=== PATIENT | female | born 1950 | race Caucasian/White ===

== ENCOUNTER 2021-01-07 18:13 | Outpatient (REF) | payer OTHER, SELFPAY | END 2021-01-07 18:14 | disposition home or self-care (01) | LOC: NCHCN 18:13 | PROVIDERS: Visit Provider Physician Assistant | DX: R35.0 Frequency of micturition (principal); R39.89 Other symptoms and signs involving the genitourinary system | CPT/HCPCS: 87086; 87480; 87510; 87660 ==

== ENCOUNTER 2021-02-20 02:10 | Outpatient (CLI) | payer OTHER, SELFPAY ==
--- NOTE | 2021-02-20 | DI.US_ITS ---
Exam(s) US SOFT TISSUE HEAD OR NECK EXAM: US SOFT TISSUE HEAD OR NECK CLINICAL HISTORY: MASS POSTERIOR RT NECK, R22.1. TECHNIQUE: Ultrasound was performed using standard protocol. COMPARISON: No exams were available for comparison FINDINGS: Sonographic assessment utilizing grayscale and color Doppler imaging was performed and targeted to th e area of clinical concern. This is right-side of the neck. Appears to be few slightly prominent lymph nodes right side of the neck. Largest of these measures 1 .4 x 0.5 x 1.0 cm. No fluid collection IMPRESSION: As above. Clinically indicated follow-up contrast infused CT scan of the soft tissues of the neck ca n be performed DATA REPOSITORY:
== END 2021-02-20 02:30 ==
PROVIDERS: Visit Provider Nurse Practitioner Family
DX: R59.0 Localized enlarged lymph nodes
CPT/HCPCS: 76536

== ENCOUNTER 2021-03-18 08:47 | Outpatient (CLI) | payer MEDICARE, SELFPAY ==
--- NOTE | 2021-03-18 | DI.US_ITS ---
Exam(s) US PELVIS TRANSVAGINAL EXAM: US PELVIS TRANSVAGINAL CLINICAL HISTORY: F/U RT OVARIAN CYST,N83.209 TECHNIQUE: Ultrasound of the pelvis was performed both transabdominal and transvaginal. COMPARISON: No exams were available for comparison . examination performed 03/18/2021 submitted for interpretation on today's date which is 04/23/2021. Apparently for waiting the prior outside images but these are parent not able to be acquired. FINDINGS: UTERUS: Nongravid and anteverted Measures 5 cm length x 1.8 cm AP x 2.6 cm wide. There is a small calcified uterine fibroid at the posterior fundus level measuring approximately 9 x 5 x 10 millimeters. Endometrial thickness measures 1-2 millimeters mm. There is no fluid in the endometrial canal. CERVIX: There are no obvious nabothian cysts. RIGHT OVARY: Measures 1.5 x 1.2 x 1.3 cm Contains a 9 x 10 x 9 millimeter finding which is possibly hemorrhagic cyst or other pathology. Some what difficult to adequately visualized LEFT OVARY: Not visualized CUL-DE-SAC: No free fluid evident. IMPRESSION: 1. Less than optimal examination 2. Left ovary is not visualized. Right ovary appears to contain a 9 x 10 millimeter probable hemorrh agic cyst. This should be reassessed in few months time to ensure stability. There is no free fluid . 3. Solitary 9 x 10 millimeter calcified posterior myometrial fibroid at the level the fundus. Endome trium is difficult to visualize but is thin, measuring approximately 1-2 millimeters. There is no fl uid in the endometrial canal. DATA REPOSITORY:
== END 2021-03-18 09:07 ==
PROVIDERS: Visit Provider Nurse Practitioner Family
DX: N83.201 Unspecified ovarian cyst, right side (principal)
CPT/HCPCS: 76830; 76856

== ENCOUNTER 2021-04-29 09:41 | Outpatient (REF) | payer OTHER, SELFPAY ==
[2021-04-29 20:45] LABS: ALT 34 U/L (14-59); AST 39 U/L (15-37); Albumin 3.9 g/dL (3.4-5.0); Alkaline Phosphatase 88 U/L (46-116); BUN 27 mg/dL (7-18); Bilirubin, Total 0.7 mg/dL (0.2-1.0); CREATININE 0.9 mg/dL (0.55-1.02); Calcium 9.4 mg/dL (8.5-10.1); Calculated LDL 114 mg/dL (<100); Chloride 102 mmol/L (98-107); Cholesterol 199 mg/dL (<200); Glucose 191 mg/dL (74-106); HDL Cholesterol 66 mg/dL (40-60); Potassium 4.7 mmol/L (3.5-5.1); Sodium 138 mmol/L (136-145); Total Protein 7.8 g/dL (6.4-8.2); Triglyceride 97 mg/dL (<150)
== END 2021-04-29 09:42 | disposition home or self-care (01) ==
LOC: NCHCN 09:41
PROVIDERS: Visit Provider Nurse Practitioner Family
DX: E78.5 Hyperlipidemia, unspecified (principal); I25.10 Atherosclerotic heart disease of native coronary artery without angina pectoris
CPT/HCPCS: 80053; 80061

== ENCOUNTER 2021-05-14 01:26 | Outpatient (CLI) | payer MEDICARE, SELFPAY ==
--- NOTE | 2021-05-14 08:30 | DI.CT_ITS ---
Exam(s) CT NECK W EXAM: CT NECK W CLINICAL HISTORY: MASS OF NECK, R22.1. TECHNIQUE: Imaging Protocol: Axial CT angiography was performed with multi-slice acquisition and mu lti-planar and/or 3D reconstructions. CONTRAST MATERIAL: Intravenous: Omnipaque 350 Contrast volume:structured data in ml COMPARISON: No exams were available for comparison FINDINGS: Visualized paranasal sinuses: There is retention cyst in the posterior aspect of the right maxillary sinus measuring 12 x 10 millimeters. Smaller similar findings seen in the lateral aspect the left ma xillary sinus. There are no associated fluid levels within the sinuses. Visualized sphenoid sinuses are clear. Nasopharynx: Tissues symmetrical. No mass evident. Oropharynx: Uvula is midline. No obvious abnormal asymmetries. Hypopharynx: Valleculae and epiglottis appear unremarkable as do the aryepiglottic folds. Prevertebral tissues: Not swollen Vocal cords: Unremarkable. Subglottic airway also appears unremarkable. Thyroid gland: Unremarkable. Salivary glands: Both parotid glands appear unremarkable. No abnormalities evident in the submandibu lar glands. Also no calculi. Vascular: Internal jugular veins are patent bilaterally. Significant calcified plaque at the level b oth carotid bifurcations and proximal internal carotid arteries. Recommend Doppler imaging. Lymph nodes: There is no lymphadenopathy evident in the neck and supraclavicular regions. Osseous: No significant osseous lesions. Facet arthropathy in the cervical spine noted. Degenerativ e disc disease lower cervical spine. Visualized lung apices: No infiltrates nor masses evident. IMPRESSION: 1. There is no evidence of mass or lymphadenopathy in the neck. 2. However, incidentally noted is heavily calcified plaque at the level of both carotid bifurcations and proximal internal carotid arteries. Recommend follow-up Doppler imaging of the carotid arteries in the neck to determine the amount of stenosis. 12 x 10 millimeter retention cyst in the right maxillary sinus and similar but smaller solitary findi ng in the left maxillary sinus. No associated fluid levels therein. RADIATION DOSE DELIVERED: 439.55mGy.cm Total DLP DATA REPOSITORY: All CT scans at this facility are submitted to the National Radiology Data Registry (NRDR) Dose Index Registry (DIR) with the [employer] ([employer]). RADIATION OPTIMIZATION: All CT scans at this facility use at least one of these dose optimization te chniques: automated exposure control; mA and/or kV adjustment per patient size (includes targeted exa ms where dose is matched to clinical indication); or iterative reconstruction.
[2021-05-14] MEDS: Omnipaque 350 MG/ML 100 ML BTL IJ (08:58)
== END 2021-05-14 01:46 ==
PROVIDERS: Visit Provider Nurse Practitioner Family
DX: R22.1 Localized swelling, mass and lump, neck (principal); I77.1 Stricture of artery
CPT/HCPCS: 70491; J3490

== ENCOUNTER 2021-05-26 08:28 | Outpatient (CLI) | payer MEDICARE, SELFPAY ==
--- NOTE | 2021-05-26 08:15 | RT.EKG_ITS ---
APPROVED REPORT Exam: Resting ECG Reason for Exam: CAD Patient Location: O HR:76 bpm ECG Measurements Heart Rate 76 AXIS FL 209 P 44 QRSd 94 QRS 26 QT 391 T 55 QTc 440 Conclusion Sinus rhythm...normal P axis, V-rate 50- 99 Normal Electrocardiogram
== END 2021-05-26 08:29 | disposition home or self-care (01) ==
LOC: DI.CARD 08:29
PROVIDERS: Visit Provider Internal Medicine Cardiovascular Disease
DX: I25.10 Atherosclerotic heart disease of native coronary artery without angina pectoris (principal)
CPT/HCPCS: 93010

== ENCOUNTER → 2021-05-26 13:02 | Outpatient (BNVA) | payer MEDICARE, SELFPAY | PROVIDERS: PCP Nurse Practitioner Family; Referring Provider Nurse Practitioner Family; Visit Provider Internal Medicine Cardiovascular Disease | DX: I25.10 Atherosclerotic heart disease of native coronary artery without angina pectoris (principal); E78.5 Hyperlipidemia, unspecified; I10 Essential (primary) hypertension; Z95.818 Presence of other cardiac implants and grafts | CPT/HCPCS: 93005; 99203 ==

== ENCOUNTER 2021-06-16 00:35 | Outpatient (CLI) | payer MEDICARE, SELFPAY ==
--- NOTE | 2021-06-16 | DI.US_ITS ---
Exam(s) US CAROTID EXAM: US CAROTID CLINICAL HISTORY: CAROTID STENOSIS, I65.29, CAROTID ARTERIAL DISEASE, I77.9, F/U CT. TECHNIQUE: Ultrasound carotids performed using grayscale, color-flow, and spectral Doppler imaging. COMPARISON: US US PELVIS TRANSVAGINAL from 03/18/2021 FINDINGS: RIGHT CAROTID ARTERY: Plaque: There is some plaque evident at the carotid bulb and proximal ICA. However, there are no manisha vated velocities at nor distal to this level in the internal carotid arteries. This implies that snehal unt of stenosis is less than 50 percent. LEFT CAROTID ARTERY: Plaque: Some carotid arterial plaque also noted at this level on the right side. However, there also no significantly elevated velocities in the left internal carotid artery in the neck, implying that the amount of stenosis is less than 50 percent. VERTEBRAL ARTERIES: Antegrade flow is demonstrated in both vertebral arteries. Measurements: R Bulb: 81cm/s PS / 11.6cm/s ED R CCA: 71.3cm/s PS / 12.2cm/s ED R ECA: 136cm/s PS / 18.5cm/s ED R ICA Prox: 69.4cm/s PS /17.6cm/s ED R ICA Mid: 84.2cm/s PS / 24.1cm/s ED R ICA Distal: 84.2cm/s PS /17.6cm/s ED R Vert: 58.5cm/s PS / 9cm/s ED R SVR: 1.18 R DVR: 1.98 L Bulb: 95.1cm/s PS /12.9cm/s ED L CCA: 73.9cm/s PS / 20.6cm/s ED L ECA: 149.9cm/s PS /5.6cm/s ED L ICA Prox:72.2cm/s PS / 14.8cm/s ED L ICA Mid: 76.8cm/sPS / 16.7cm/s ED L ICA Distal: 104.6cm/s PS / 31.5cm/s ED L Vert: 54.6cm/s PS / 14.8cm/s ED L SVR: 1.42 L DVR: 1.53 IMPRESSION: There is plaque bilaterally at the carotid bulbs and proximal ICAs. However, there are no significan t elevated velocities, this implying that the amount of stenosis is less than 50 percent bilaterally. Antegrade flow was demonstrated in both vertebral arteries. Criteria for Carotid Stenosis: Normal: ICA PSV <125 cm/s no plaque or intimal thickening is visible. <50% stenosis: ICA PSV <125 cm/s and plaque or intimal thickening is visible. 50-69% stenosis: ICA PSV is 125-250 cm/s and plaque is visible. >70% stenosis to near occlusion: ICA PSV >250 cm/s with visible plaque and luminal narrowing. DATA REPOSITORY:
--- NOTE | 2021-06-16 08:55 | DI.MAMMO_ITS ---
Exam(s) MAMMO SCREENING EXAM: MAMMO SCREENING CLINICAL HISTORY: SCREENING, Z12.39 TECHNIQUE: Bilateral full field digital CC and MLO mammographic images were obtained with 3D tomosyn thesis and utilizing computer aided detection (CAD). COMPARISON: Available for comparison. FINDINGS: Masses/Architectural Distortion: None seen. Stable asymmetric tissue is seen in the upper central lef t breast. Microcalcifications: No suspicious pleomorphic-type are seen. Skin Thickening/Nipple Retraction: None. IMPRESSION: 1. No significant interval change with no specific features of malignancy noted. 2. Unless there is more urgent need, screening mammography is recommended, as per [employer] guidelines. BI-RADS Category 2 - Benign Findings Breast Density - Category B - Scattered areas of fibroglandular density Breast density category C or D implies that the patient has dense breast tissue. Dense breast tissue is very common and is not abnormal but dense breast tissue can make it harder to find cancer on a ma mmogram. Also, dense breast tissue may increase their breast cancer risk. This information about the result of the mammogram report was provided to the patient to raise their awareness. Use this report when you speak with the patient about their risks for breast cancer, which includes their family hist ory. At that time, you may recommend for more screening tests (Ultrasound or MRI) as they might be us eful based on their risk. A negative radiographic report should not delay biopsy if a dominant or clinically suspicious mass is present. Up to ten percent of cancers are not identified on mammography. A negative report may reinforce clinical impression. Adenosis and dense breasts may obscure an underlying neoplasm. False positive reports average 6 to 10%. Patient will receive a letter notifying them of these results.
== END 2021-06-16 00:55 ==
PROVIDERS: PCP Nurse Practitioner Family; Visit Provider Nurse Practitioner Family
DX: I65.23 Occlusion and stenosis of bilateral carotid arteries (principal); I77.89 Other specified disorders of arteries and arterioles; Z12.31 Encounter for screening mammogram for malignant neoplasm of breast
CPT/HCPCS: 77063; 77067; 93880

== ENCOUNTER 2021-07-28 01:47 | Outpatient (CLI) | payer MEDICARE, SELFPAY ==
--- NOTE | 2021-07-28 08:00 | DI.US_ITS ---
Exam(s) US PELVIS TRANSVAGINAL EXAM: US PELVIS TRANSVAGINAL CLINICAL HISTORY: UNSPECIFIED OVARIAN CYST, N83.209, F/U RT OVARIAN CYST TECHNIQUE: Transabdominal and transvaginal imaging was performed using standard protocol. COMPARISON: US US PELVIS TRANSVAGINAL from 03/18/2021 FINDINGS: KIDNEYS: Kidneys are symmetric in size. No evidence of renal calculi. No evidence of hydronephrosis. No renal mass or cyst identified. Uterus and ovaries are much better visualized on today's examination compared with the prior.. UTERUS: Anteverted. 5.1 x 2.4 x 3.6 cm. Endometrium: 2 millimeters. Myometrium: 3 small calcified fibroids near the fundus, largest measuring 1.3 cm. Cervix: Unremarkable. OVARIES: Right: Cyst or mass: 1.6 x 1.1 x 1.6 cm. 1.3 x 0.9 x 1.2 centimeter cyst. No suspicious features. Left: Cyst or mass: None. 1.2 x 0.9 x 0.8 cm DOPPLER: Color: Symmetric and uniform flow to both ovaries. No hyperemia. Duplex: Normal ovarian arterial waveforms visualized. CUL-DE-SAC: Free fluid: Small amount of free fluid. IMPRESSION: 1. Normal-appearing uterus with endometrial stripe within normal limits. 2. 1.3 centimeter maximal dimension simple cyst right ovary. Unremarkable left ovary. DATA REPOSITORY:
== END 2021-07-28 02:07 ==
PROVIDERS: PCP Nurse Practitioner Family; Visit Provider Nurse Practitioner Family
DX: N83.291 Other ovarian cyst, right side (principal); D25.9 Leiomyoma of uterus, unspecified
CPT/HCPCS: 76830; 76856

== ENCOUNTER 2021-08-28 10:09 | Outpatient (REF) | payer MEDICARE, SELFPAY | END 2021-08-28 10:10 | disposition home or self-care (01) | LOC: LBN 10:09 | PROVIDERS: PCP Nurse Practitioner Family; Visit Provider Internal Medicine Gastroenterology ==

== ENCOUNTER 2021-08-28 18:31 | Outpatient (REF) | payer MEDICARE, SELFPAY ==
[2021-08-28 19:35] LABS: ALT 42 U/L (14-59); AST 37 U/L (15-37); Albumin 3.9 g/dL (3.4-5.0); Alkaline Phosphatase 97 U/L (46-116); Bilirubin, Direct 0.4 mg/dL (0.0-0.2); Bilirubin, Total 0.9 mg/dL (0.2-1.0); Total Protein 7.8 g/dL (6.4-8.2)
[2021-08-28 20:03] LABS: COMMENT (LAB VIEW ONLY) 10.51 mg/dL; Microalb ug/mg Crea 22.8 ug/mg Cr
== END 2021-08-28 18:32 | disposition home or self-care (01) ==
LOC: NCHCN 18:31
PROVIDERS: PCP Nurse Practitioner Family; Visit Provider Nurse Practitioner Family
DX: K74.3 Primary biliary cirrhosis (principal)
CPT/HCPCS: 80076; 82043; 82570

== ENCOUNTER 2021-09-25 18:39 | Outpatient (REF) | payer MEDICARE, SELFPAY ==
[2021-09-25 19:21] LABS: ALT 37 U/L (14-59); AST 37 U/L (15-37); Albumin 3.7 g/dL (3.4-5.0); Alkaline Phosphatase 85 U/L (46-116); Bilirubin, Direct 0.4 mg/dL (0.0-0.2); Bilirubin, Total 0.8 mg/dL (0.2-1.0); Total Protein 7.5 g/dL (6.4-8.2)
== END 2021-09-25 18:40 | disposition home or self-care (01) ==
LOC: NCHCN 18:39
PROVIDERS: PCP Nurse Practitioner Family; Visit Provider Nurse Practitioner Family
DX: K74.3 Primary biliary cirrhosis (principal)
CPT/HCPCS: 80076

== ENCOUNTER 2021-10-23 11:05 | Outpatient (REF) | payer MEDICARE, SELFPAY ==
[2021-10-23 19:16] LABS: ALT 32 U/L (14-59); AST 34 U/L (15-37); Albumin 3.6 g/dL (3.4-5.0); Alkaline Phosphatase 71 U/L (46-116); Bilirubin, Direct 0.4 mg/dL (0.0-0.2); Bilirubin, Total 0.8 mg/dL (0.2-1.0); Total Protein 7.4 g/dL (6.4-8.2)
== END 2021-10-23 11:06 | disposition home or self-care (01) ==
LOC: NCHCN 11:05
PROVIDERS: PCP Nurse Practitioner Family; Visit Provider Nurse Practitioner Family
DX: K74.3 Primary biliary cirrhosis (principal)
CPT/HCPCS: 80076

== ENCOUNTER 2021-11-20 09:59 | Outpatient (REF) | payer MEDICARE, SELFPAY ==
[2021-11-20 19:14] LABS: ALT 37 U/L (14-59); AST 30 U/L (15-37); Albumin 3.8 g/dL (3.4-5.0); Alkaline Phosphatase 68 U/L (46-116); Bilirubin, Direct 0.4 mg/dL (0.0-0.2); Bilirubin, Total 1.1 mg/dL (0.2-1.0); Total Protein 7.7 g/dL (6.4-8.2)
[2021-11-20 19:18] LABS: Hemoglobin A1C 7.9 % (<5.7)
== END 2021-11-20 10:00 | disposition home or self-care (01) ==
LOC: NCHCN 09:59
PROVIDERS: PCP Nurse Practitioner Family; Visit Provider Nurse Practitioner Family
DX: E11.69 Type 2 diabetes mellitus with other specified complication (principal); K74.3 Primary biliary cirrhosis
CPT/HCPCS: 80076; 83036

== ENCOUNTER 2021-11-20 10:04 | Outpatient (REF) | payer MEDICARE, SELFPAY | END 2021-11-20 10:05 | disposition home or self-care (01) | LOC: LBN 10:04 | PROVIDERS: PCP Nurse Practitioner Family; Visit Provider Internal Medicine Gastroenterology ==

== ENCOUNTER 2021-12-24 15:35 | Outpatient (REF) | payer MEDICARE, SELFPAY ==
[2021-12-24 22:38] LABS: ALT 31 U/L (14-59); AST 30 U/L (15-37); Albumin 3.6 g/dL (3.4-5.0); Alkaline Phosphatase 64 U/L (46-116); Bilirubin, Direct 0.2 mg/dL (0.0-0.2); Bilirubin, Total 0.6 mg/dL (0.2-1.0); Total Protein 7.8 g/dL (6.4-8.2)
== END 2021-12-24 15:36 | disposition home or self-care (01) ==
LOC: NCHCN 15:35
PROVIDERS: PCP Nurse Practitioner Family; Visit Provider Nurse Practitioner Family
DX: K74.3 Primary biliary cirrhosis (principal)
CPT/HCPCS: 80076

== ENCOUNTER → 2022-06-12 08:41 | Outpatient (BNVA) | payer MEDICARE, SELFPAY | PROVIDERS: PCP Nurse Practitioner Family; Referring Provider Nurse Practitioner Family; Visit Provider Internal Medicine Cardiovascular Disease | DX: I25.10 Atherosclerotic heart disease of native coronary artery without angina pectoris (principal); I10 Essential (primary) hypertension | CPT/HCPCS: 99213 ==

== ENCOUNTER 2022-07-22 13:01 | Outpatient (CLI) | payer MEDICARE, SELFPAY ==
[2022-07-22 09:32] LABS: Abs Immature Grans 0.01 10^3/uL (0.0-0.06); Absolute Basophil Count 0.03 10^3/uL (0.0-0.2); Absolute Eosinophil Count 0.08 10^3/uL (0.0-0.7); Absolute Lymphocyte Count 1.23 10^3/uL (1.2-3.4); Absolute Monocyte Count 0.41 10^3/uL (0.1-0.8); Absolute Neutrophil Count 2.18 10^3/uL (1.2-6.7); Basophils % 0.8; HCT 50.1 % (36.0-46.0); HGB 16.9 g/dL (11.2-15.7); Immature Grans % 0.3; Lymphocytes % 31.2; MCHC 33.7 % (32.0-36.0); MCV 92 fL (80-95); MPV 10.5 fL (8.0-11.0); Monocytes % 10.4; Neutrophils % 55.3; Platelet Count 151 10^3/uL (130-400); RBC 5.45 10^6/uL (3.93-5.22); RDW 13.3 % (11.7-14.6); RDW-SD 44.8 fL; WBC 3.94 10^3/uL (4.4-10.8)
[2022-07-22 10:38] LABS: ALT 29 U/L (14-59); AST 28 U/L (15-37); Albumin 3.9 g/dL (3.4-5.0); Alkaline Phosphatase 90 U/L (46-116); Anion Gap 7.3 mmol/L (3-11); BUN 33 mg/dL (7-18); Bilirubin, Total 0.7 mg/dL (0.2-1.0); CO2 27.7 mmol/L (21.0-32.0); CREATININE 1.2 mg/dL (0.55-1.02); Chloride 104 mmol/L (98-107); Glucose 157 mg/dL (74-106); Sodium 139 mmol/L (136-145); Total Protein 8.3 g/dL (6.4-8.2)
== END 2022-07-22 13:02 | disposition home or self-care (01) ==
LOC: LBO 13:01
PROVIDERS: PCP Nurse Practitioner Family; Visit Provider Internal Medicine Gastroenterology
DX: K75.4 Autoimmune hepatitis (principal); K74.3 Primary biliary cirrhosis; K74.60 Unspecified cirrhosis of liver
CPT/HCPCS: 36415; 80053; 85025

== ENCOUNTER 2022-09-01 13:19 | Outpatient (REF) | payer MEDICARE, SELFPAY ==
[2022-09-01 19:05] LABS: Anion Gap 8.1 mmol/L (3-11); BUN 30 mg/dL (7-18); CO2 25.9 mmol/L (21.0-32.0); CREATININE 1.1 mg/dL (0.55-1.02); Calcium 10.5 mg/dL (8.5-10.1); Chloride 106 mmol/L (98-107); Estimated GFR 54.39 (mL/min/1.73m2); Glucose 122 mg/dL (74-106); Potassium 4.3 mmol/L (3.5-5.1); Sodium 140 mmol/L (136-145)
[2022-09-01 19:18] LABS: COMMENT (LAB VIEW ONLY) 13.79 mg/dL; Microalb ug/mg Crea 10.9 ug/mg Cr
== END 2022-09-01 13:20 | disposition home or self-care (01) ==
LOC: NCHCN 13:19
PROVIDERS: PCP Nurse Practitioner Family; Visit Provider Nurse Practitioner Family
DX: E11.9 Type 2 diabetes mellitus without complications (principal)
CPT/HCPCS: 80048; 82043; 82570

== ENCOUNTER 2022-10-05 13:08 | Outpatient (REF) | payer MEDICARE, SELFPAY ==
[2022-10-05 19:36] LABS: Anion Gap 3.7 mmol/L (3-11); BUN 27 mg/dL (7-18); CO2 27.3 mmol/L (21.0-32.0); Calcium 9.5 mg/dL (8.5-10.1); Chloride 104 mmol/L (98-107); Estimated GFR 60.98 (mL/min/1.73m2); Glucose 187 mg/dL (74-106); Potassium 4.4 mmol/L (3.5-5.1); Sodium 135 mmol/L (136-145)
== END 2022-10-05 13:09 | disposition home or self-care (01) ==
LOC: NCHCN 13:08
PROVIDERS: PCP Nurse Practitioner Family; Visit Provider Nurse Practitioner Family
DX: N18.31 Chronic kidney disease, stage 3a (principal)
CPT/HCPCS: 80048

== ENCOUNTER 2022-10-30 01:31 | Outpatient (CLI) | payer MEDICARE, SELFPAY ==
[2022-10-30 16:27] LABS: ALT 31 U/L (14-59); AST 32 U/L (15-37); Albumin 3.8 g/dL (3.4-5.0); Alkaline Phosphatase 86 U/L (46-116); Bilirubin, Direct 0.3 mg/dL (0.0-0.2); Bilirubin, Total 1.1 mg/dL (0.2-1.0)
== END 2022-10-30 01:32 | disposition home or self-care (01) ==
LOC: LBO 01:31
PROVIDERS: PCP Nurse Practitioner Family; Visit Provider Internal Medicine Gastroenterology
DX: K74.3 Primary biliary cirrhosis (principal)
CPT/HCPCS: 36415; 80076

== ENCOUNTER 2022-11-27 01:34 | Outpatient (CLI) | payer MEDICARE, SELFPAY ==
[2022-11-27 09:17] LABS: Absolute Basophil Count 0.03 10^3/uL (0.0-0.2); Absolute Eosinophil Count 0.06 10^3/uL (0.0-0.7); Absolute Lymphocyte Count 0.86 10^3/uL (1.2-3.4); Absolute Neutrophil Count 1.76 10^3/uL (1.2-6.7); Eosinophils % 1.9; HCT 47.8 % (36.0-46.0); HGB 16.1 g/dL (11.2-15.7); Lymphocytes % 27.7; MCH 31.3 pg (27.0-33.0); MCHC 33.7 % (32.0-36.0); MCV 93 fL (80-95); MPV 10.2 fL (8.0-11.0); Monocytes % 12.9; Neutrophils % 56.5; Platelet Count 132 10^3/uL (130-400); RBC 5.14 10^6/uL (3.93-5.22); RDW 13.3 % (11.7-14.6); RDW-SD 45.5 fL; WBC 3.11 10^3/uL (4.4-10.8)
[2022-11-27 10:02] LABS: ALT 28 U/L (14-59); AST 27 U/L (15-37); Albumin 3.6 g/dL (3.4-5.0); Alkaline Phosphatase 93 U/L (46-116); Anion Gap 7.1 mmol/L (3-11); BUN 30 mg/dL (7-18); Bilirubin, Direct 0.3 mg/dL (0.0-0.2); Bilirubin, Total 0.8 mg/dL (0.2-1.0); CO2 28.9 mmol/L (21.0-32.0); CREATININE 1.1 mg/dL (0.55-1.02); Calcium 9.7 mg/dL (8.5-10.1); Chloride 104 mmol/L (98-107); Estimated GFR 54.39 (mL/min/1.73m2); Glucose 172 mg/dL (74-106); Potassium 4.5 mmol/L (3.5-5.1); Sodium 140 mmol/L (136-145); Total Protein 7.7 g/dL (6.4-8.2)
== END 2022-11-27 01:35 | disposition home or self-care (01) ==
LOC: LBO 01:35
PROVIDERS: PCP Nurse Practitioner Family; Visit Provider Internal Medicine Gastroenterology
DX: K75.4 Autoimmune hepatitis (principal); K74.3 Primary biliary cirrhosis; K74.69 Other cirrhosis of liver
CPT/HCPCS: 36415; 80053; 80076; 85025

== ENCOUNTER 2022-12-25 01:00 | Outpatient (CLI) | payer MEDICARE, SELFPAY ==
[2022-12-25 09:14] LABS: Absolute Basophil Count 0.03 10^3/uL (0.0-0.2); Absolute Eosinophil Count 0.08 10^3/uL (0.0-0.7); Absolute Lymphocyte Count 0.86 10^3/uL (1.2-3.4); Absolute Monocyte Count 0.39 10^3/uL (0.1-0.8); Basophils % 0.9; Eosinophils % 2.5; HCT 47.1 % (36.0-46.0); HGB 15.6 g/dL (11.2-15.7); Lymphocytes % 26.4; MCH 31.6 pg (27.0-33.0); MCHC 33.1 % (32.0-36.0); MCV 96 fL (80-95); MPV 11.1 fL (8.0-11.0); Neutrophils % 58.2; Platelet Count 103 10^3/uL (130-400); RBC 4.93 10^6/uL (3.93-5.22); RDW 13.4 % (11.7-14.6); RDW-SD 47.7 fL; WBC 3.26 10^3/uL (4.4-10.8)
[2022-12-25 09:26] LABS: ALT 28 U/L (14-59); AST 29 U/L (15-37); Albumin 3.4 g/dL (3.4-5.0); Alkaline Phosphatase 77 U/L (46-116); BUN 32 mg/dL (7-18); Bilirubin, Direct 0.3 mg/dL (0.0-0.2); Bilirubin, Total 0.6 mg/dL (0.2-1.0); Calcium 9.5 mg/dL (8.5-10.1); Chloride 104 mmol/L (98-107); Estimated GFR 60.61 (mL/min/1.73m2); Glucose 169 mg/dL (74-106); Potassium 4.8 mmol/L (3.5-5.1); Sodium 138 mmol/L (136-145); Total Protein 7.5 g/dL (6.4-8.2)
== END 2022-12-25 01:01 | disposition home or self-care (01) ==
LOC: LBO 01:00
PROVIDERS: PCP Nurse Practitioner Family; Visit Provider Internal Medicine Gastroenterology
DX: K74.3 Primary biliary cirrhosis; K75.4 Autoimmune hepatitis
CPT/HCPCS: 36415; 80053; 80076; 85025

== ENCOUNTER 2023-01-26 02:44 | Outpatient (CLI) | payer MEDICARE, SELFPAY ==
[2023-01-26 09:07] LABS: Abs Immature Grans 0.01 10^3/uL (0.0-0.06); Absolute Basophil Count 0.02 10^3/uL (0.0-0.2); Absolute Eosinophil Count 0.04 10^3/uL (0.0-0.7); Absolute Lymphocyte Count 0.98 10^3/uL (1.2-3.4); Absolute Monocyte Count 0.38 10^3/uL (0.1-0.8); Absolute Neutrophil Count 1.94 10^3/uL (1.2-6.7); Basophils % 0.6; Eosinophils % 1.2; HCT 48.1 % (36.0-46.0); HGB 16.2 g/dL (11.2-15.7); Immature Grans % 0.3; Lymphocytes % 29.1; MCH 31.5 pg (27.0-33.0); MCHC 33.7 % (32.0-36.0); MCV 93 fL (80-95); MPV 10.4 fL (8.0-11.0); Monocytes % 11.3; Neutrophils % 57.5; Platelet Count 129 10^3/uL (130-400); RBC 5.15 10^6/uL (3.93-5.22); RDW 13.1 % (11.7-14.6); RDW-SD 45.1 fL; WBC 3.37 10^3/uL (4.4-10.8)
[2023-01-26 09:32] LABS: ALT 29 U/L (14-59); AST 28 U/L (15-37); Albumin 3.8 g/dL (3.4-5.0); Alkaline Phosphatase 76 U/L (46-116); Anion Gap 9.9 mmol/L (3-11); BUN 22 mg/dL (7-18); Bilirubin, Direct 0.4 mg/dL (0.0-0.2); Bilirubin, Total 0.9 mg/dL (0.2-1.0); CO2 24.1 mmol/L (21.0-32.0); CREATININE 0.9 mg/dL (0.55-1.02); Calcium 10.2 mg/dL (8.5-10.1); Chloride 104 mmol/L (98-107); Estimated GFR 68.77 (mL/min/1.73m2); Glucose 121 mg/dL (74-106); Potassium 3.9 mmol/L (3.5-5.1); Sodium 138 mmol/L (136-145)
== END 2023-01-26 02:45 | disposition home or self-care (01) ==
LOC: LBO 02:45
PROVIDERS: PCP Nurse Practitioner Family; Visit Provider Internal Medicine Gastroenterology
DX: K75.4 Autoimmune hepatitis (principal); K74.3 Primary biliary cirrhosis
CPT/HCPCS: 36415; 80053; 80076; 85025

== ENCOUNTER 2023-03-01 03:23 | Outpatient (CLI) | payer MEDICARE, SELFPAY ==
[2023-03-01 10:57] LABS: Abs Immature Grans 0.01 10^3/uL (0.0-0.06); Absolute Basophil Count 0.02 10^3/uL (0.0-0.2); Absolute Eosinophil Count 0.07 10^3/uL (0.0-0.7); Absolute Lymphocyte Count 1.01 10^3/uL (1.2-3.4); Absolute Monocyte Count 0.33 10^3/uL (0.1-0.8); Absolute Neutrophil Count 2.25 10^3/uL (1.2-6.7); Basophils % 0.5; Eosinophils % 1.9; HCT 45.7 % (36.0-46.0); HGB 15.9 g/dL (11.2-15.7); Immature Grans % 0.3; Lymphocytes % 27.4; MCHC 34.8 % (32.0-36.0); MCV 92 fL (80-95); MPV 10.4 fL (8.0-11.0); Monocytes % 8.9; Platelet Count 138 10^3/uL (130-400); RBC 4.97 10^6/uL (3.93-5.22); RDW 13.1 % (11.7-14.6); RDW-SD 44.2 fL; WBC 3.69 10^3/uL (4.4-10.8)
[2023-03-01 11:04] LABS: Prothrombin Time 10.4 sec (9.1-11.1)
[2023-03-01 11:17] LABS: ALT 23 U/L (14-59); AST 26 U/L (15-37); Albumin 3.7 g/dL (3.4-5.0); Alkaline Phosphatase 63 U/L (46-116); Anion Gap 10.4 mmol/L (3-11); BUN 26 mg/dL (7-18); Bilirubin, Direct 0.2 mg/dL (0.0-0.2); Bilirubin, Total 0.5 mg/dL (0.2-1.0); CO2 22.6 mmol/L (21.0-32.0); CREATININE 0.8 mg/dL (0.55-1.02); Chloride 104 mmol/L (98-107); Estimated GFR 79.22 (mL/min/1.73m2); Glucose 124 mg/dL (74-106); Potassium 4.2 mmol/L (3.5-5.1); Sodium 137 mmol/L (136-145)
[2023-03-03 08:41] LABS: AFP Tumor Marker 2.7 ng/mL (<8.1)
== END 2023-03-01 03:24 | disposition home or self-care (01) ==
PROVIDERS: PCP Nurse Practitioner Family; Visit Provider Internal Medicine Gastroenterology
DX: K74.3 Primary biliary cirrhosis (principal); K74.60 Unspecified cirrhosis of liver
CPT/HCPCS: 36415; 80053; 80076; 82105; 85025; 85610

== ENCOUNTER 2023-05-17 15:13 | Outpatient (REF) | payer MEDICARE, SELFPAY ==
[2023-05-17 19:20] LABS: ALT 29 U/L (14-59); AST 30 U/L (15-37); Albumin 3.5 g/dL (3.4-5.0); Alkaline Phosphatase 63 U/L (46-116); Bilirubin, Total 0.7 mg/dL (0.2-1.0); Total Protein 7.7 g/dL (6.4-8.2)
[2023-05-17 19:35] LABS: Bilirubin, Direct 0.2 mg/dL (0.0-0.2)
== END 2023-05-17 15:14 | disposition home or self-care (01) ==
LOC: NCHCN 15:13
PROVIDERS: PCP Nurse Practitioner Family; Visit Provider Nurse Practitioner Family
DX: E11.9 Type 2 diabetes mellitus without complications (principal); K74.3 Primary biliary cirrhosis
CPT/HCPCS: 80076; 83036

== ENCOUNTER → 2023-05-24 03:41 | Outpatient (CLI) | payer MEDICARE, SELFPAY ==
--- NOTE | 2023-05-24 08:00 | DI.MAMMO_ITS ---
Exam(s) MAMMO SCREENING EXAM: MAMMO SCREENING CLINICAL HISTORY: SCREENING MAMMO FOR BREAST CANCER Z12.31 TECHNIQUE: Mammograms were interpreted according to the usual protocol including computer analysis w [employer] CAD system, tomosynthesis and C-view imaging. COMPARISON: 2016 through 2021 FINDINGS: The breasts are composed of scattered fibroglandular densities, Breast Density category B. No suspicious masses or suspicious microcalcifications are seen. No skin thickening or abnormal axillary lymph nodes are seen. There has been no significant change from prior exams. IMPRESSION: BI-RADS Category 1, Negative mammogram Yearly screening mammography is recommended. Breast Density - Category B, scattered fibroglandular densities. A negative radiographic report should not delay biopsy if a dominant or clinically suspicious mass is present. Up to ten percent of cancers are not identified on mammography. A negative report may reinforce clinical impression. Adenosis and dense breasts may obscure an underlying neoplasm. False positive reports average 6 to 10%. Patient will receive a letter notifying them of these results.
== END ==
PROVIDERS: PCP Nurse Practitioner Family; Visit Provider Nurse Practitioner Family
DX: Z12.31 Encounter for screening mammogram for malignant neoplasm of breast (principal)
CPT/HCPCS: 77063; 77067

== ENCOUNTER 2023-06-11 08:52 | Outpatient (CLI) | payer MEDICARE, SELFPAY ==
--- NOTE | 2023-06-11 08:45 | RT.EKG_ITS ---
APPROVED REPORT Exam: Resting ECG Reason for Exam: 1 Year Cardiology Follow up Patient Location: O HR:70 bpm ECG Measurements Heart Rate 70 AXIS GA 226 P 40 QRSd 90 QRS 25 QT 391 T 50 QTc 422 Conclusion Sinus rhythm...normal P axis, V-rate 50- 99 Prolonged GA interval...GA >220, V-rate 50- 90 Low voltage, precordial leads...precordial leads <1.0mV Baseline wander in lead(s) V3 I have reviewed and interpreted ECG and agree with software generated interpretation.
== END 2023-06-11 08:53 | disposition home or self-care (01) ==
LOC: DI.CARD 08:54
PROVIDERS: PCP Nurse Practitioner Family; Visit Provider Internal Medicine Interventional Cardiology
DX: R00.2 Palpitations (principal)
CPT/HCPCS: 93010

== ENCOUNTER → 2023-06-11 08:52 | Outpatient (BNVA) | payer MEDICARE, SELFPAY | PROVIDERS: PCP Nurse Practitioner Family; Referring Provider Nurse Practitioner Family; Visit Provider Internal Medicine Interventional Cardiology | DX: E78.5 Hyperlipidemia, unspecified (principal); I25.10 Atherosclerotic heart disease of native coronary artery without angina pectoris; I10 Essential (primary) hypertension; R00.2 Palpitations | CPT/HCPCS: 93005; 99213 ==

== ENCOUNTER 2023-11-16 15:06 | Outpatient (REF) | payer MEDICARE, SELFPAY ==
--- OUTSIDE RECORDS SUMMARY | 2023-11-16 15:08 | XMS_ITS | Encounter Summary ---
Author Organization [facility] [place] [address] Care Team Providers Care Traffic Operations Manager Name Role Phone Nicolasa Prince APRN Primary Care Provider [phone] Encounter Details Date Type Department Care Team (Late st Contact Info) Description 09/28/2023 1:00 PM EDT Office [place] [id number] Irene Lara MD [facility] [place] [address] Primary biliary cholangitis; Hepatic cirrhosis, unspecified hepatic cirrhosis type, unspecified whether ascites present Social History Tobacco Use Types Packs/Day Years Used Date Smoking Tobacco: Former Smokeless Tobacco: Never Alcohol Use Standard Drinks/Week Comments Not Currently 0 (1 standard drink = 0.6 oz pur e alcohol) Sex and Gender Information Value Date Recorded Sex Assigned at Not on file Gender Identity Not on file Sexual Orientation Not on file documented as of this encounter Last Filed Vital Signs Vital Sign Reading Time Taken Comments Blood Pressure 118/57 09/28/2023 1:10 PM EDT Pulse 83 09/28/2023 1:10 PM EDT Temperature - - Respiratory Rate - - Oxygen Saturation - - Inhaled Oxygen Concentration - - Weight 97.3 kg (214 lb 6.4 oz) 09/28/2023 1:10 P M EDT Height 170.2 cm (5' 7) 09/28/2023 1:10 PM EDT Body Mass Index 33.58 09/28/2023 1:10 PM EDT documented in this encounter Progress Notes * Irene Lara MD - 09/28/2023 1:00 PM EDT Gastroenterology and Hepatology Follow Up Note Patient: Prema Salgado : 1950 Provider: Irene Lara MD Problem List: PBC/ AIH - 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 Stage 2 fibrosis at that time. AMA negative, HUGO 1:640 - Treated with Ursodiol initally - Repeat liver biopsy 03/2013 (for persistent liver test abnormalities- alk phos 200-300, AST/ALT 100's)) showed stage III fibrosis and PBC and AIH overlap. See end of this note for full report - CHRONIC BILIARY DISEASE WITH PORTAL INFLAMMATION, CHOLANGITIS AND INTERFACE HEPATITIS - BRIDGING FIBROSIS (STAGE 3 OF 4) , no steatosis - She was started on Prednisone and Azathioprine, quickly tapered off of Prednisone due to side effects and minimal improvement of transaminases, continued on AZA 75mg. -Fenofibrate added 07/2014 for persistent alk phos elevation- LFT's normalized soon after this -Fibroscan 01/2022 c/w stage 3 fibrosis -EGD 09/01/2018: no varices, erosive gastristis. Recommendation to repeat in 3 years. -EGD 08/07/22 no varices -Last imaging: US 03/2023 coarsened echo texture, capsular nodularity, no lesions 07/3021 MRI : IMPRESSION No hepatic lesions. Nodular capsular contour with heterogeneous signal pattern, compatible cirrhotic change. - Transjugular liver biopsy 03/07/2013: 1. Transvenous (transjugular) liver biopsy with samples sent to surgical pathology for further analysis. 2. The indirectly measured portosystemic gradients were 5 mm Hg to the hepatic vein, 4 mm Hg to thehepatic inferior vena cava, and 8 mm Hg to the right atrium, which are within normal limits Liver tests normal since at approximately 2017 Other issues: HTN Diabetes CAD- s/p coronary stent 2004 Colon adenomas- colo 2022, 6 month follow up recommended for large polyp piecemeal resection Interval History: Prema Salgado is coming in for follow up for cirrhosis related to PBC/AIH. Her original diagnosis was made in [place] and she was managed by a bus escort at [facility]. Her records were extensively reviewed in care everywhere. She first started seeing Dr. Yasmin Woodson in 2012.At that time she had had the diagnosis of PBC for 4 years and liver tests had remained elevated. There was also suggestion of advanced fibrosis with decreasing platelets. She underwent a liver biopsyin 2012. 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 Based on persistent liver test elevations and this biopsy reading she was treated with prednisone 20 mg a day and azathioprine 50 mg a day. She had significant side effects to prednisone and also there did not appear to be any change in her transaminases after 2 months and the prednisone was tapered off. Azathioprine was continued. Over time the transaminases improved a little bit but the alkaline phosphatase remained elevated close to 200. In July 2014 fenofibrate 145 mg a day was added to her regimen and soon after that her liver tests normalized. Her liver tests have been normal since approximately 2016. She moved to [place] in 2019.. Living with her two brothers. She is generally feeling well. No complaints. Started on oral semaglutide recently for diabetes. Lab Results Component Value Date ALT 23 09/28/2023 AST 25 09/28/2023 ALKPHOS 70 09/28/2023 BILITOT 0.7 09/28/2023 Lab Results Component Value Date WBC 3.6 (L) 03/30/2023 HGB 15.8 (H) 03/30/2023 HCT 46.6 (H) 03/30/2023 MCV 93.0 03/30/2023 PLATELET 131 (L) 03/30/2023 Current Outpatient Medications Medication Sig Dispense Refill Ursodiol (Bridgette Forte) 500 mg tablet TAKE 1 TABLET BY MOUTH TWICE DAILY 180 tablet 0 fenofibrate (Tricor) 145 mg tablet TAKE 1 TABLET BY MOUTH DAILY 90 tablet 3 Rybelsus 3 mg tablet Rybelsus 7 mg tablet metoprolol succinate XL (Toprol-XL) 25 mg ER 24 hr tablet Take 25 mg by mouth Daily. losartan (Cozaar) 50 mg Tablet Take 2 tablets by mouth daily. 90 tablet 0 azaTHIOprine (Imuran) 50 mg Tablet Take 1 tablet by mouth daily. (Patient not taking: Reported on 03/30/2023) 90 tablet 3 cholecalciferol, Vitamin D3, 50 mcg (2,000 unit) Capsule Take by mouth. Jardiance 25 mg Tablet Tradjenta 5 mg Tablet aspirin 325 mg Tablet Take 325 mg by mouth daily. No current facility-administered medications for this visit. Vitals: 09/28/23 1310 BP: 118/57 BP Location ([facility]): Right arm Patient Position: Sitting BP Cuff Sizes: Large Adult (32-43 cm) Pulse: 83 Weight: 97.3 kg (214 lb 6.4 oz) Height: 170.2 cm (5' 7) Body mass index is 33.58 kg/m??. 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 She has cirrhosis which was likely present in 2012 based on the findings on the biopsy. Her her disease was likely untreated for a number of years before it was diagnosed.Currently cirrhosis is Child A, she is well compensated. Liver tests are normal on her current regimen. Based on review of her records it appears that her numbers improved significantly when fenofibrate was added and did not change significantly with the addition of prednisone. This makes me think that her disease might be more PBC than AIH. Recommendatios: Continue ursodiol 1000 mg/day, fenofibrate 145mg/day for PBC Off AZA as of early 03/2023, LFT's normal since- repeat in 3 months EGD at time of next colo for varices screening- 2025 US for HCC screening in six months- will do in [facility], , GIF here in one year Time spent with patient: 25 min Time spent reviewing records, documenting- all today : 8 min Irene Lara MD Section of Gastroenterology & Hepatology [address] [place] [address] Cc: Nicolasa Prince APRN SURGICAL PATHOLOGY REPORT Patient: PREMA SALGADO MR #: [id number] Submitted by: Elie Moreno MD FINAL DIAGNOSIS LIVER, RIGHT LOBE, BIOPSY: - CHRONIC BILIARY DISEASE WITH PORTAL INFLAMMATION, CHOLANGITIS AND INTERFACE HEPATITIS - BRIDGING FIBROSIS (STAGE 3 OF 4) MICROSCOPIC DESCRIPTION: The biopsy consists of two cores of inflamed liver parenchyma with approximately 10 fibrotic portaltracts and fibrous septa. The trichrome and reticulin stains highlight bridging fibrosis throughout; no definite regenerative nodules are identified. The portal tracts and septa show chronic inflammation, including prominent plasma cells. There is associated lymphocytic cholangitis and bile ductular reaction (CK19 and CK7 immunostains examined); no definite ductopenia is present as the ductules cannot be definitively distinguished from [place] bile ducts. There is patchy periportal hepatocellular feathery degeneration as well interface hepatitis. No definite florid duct lesions or granulomasare seen. There is lobular lymphohistiocytic inflammation and scattered acidophil bodies. DPAS stain shows finely granular hyaline globules in scattered hepatocytes. The copper stain is positive in numerous periseptal hepatocytes. There is no significant steatosis, Minerva's hyaline or ground glass cytoplasmic changes and the iron stain is negative for hemosiderosis. INTERPRETATION: Per report, the patient has a history of AMA-negative primary biliary cirrhosis (PBC) along with persistently elevated alkaline phosphatase and ALT/AST. The overall features are consistent persistentinvolvement by PBC. Furthermore, given the portal plasma cell infiltrates and lobular inflammation, a component of autoimmune hepatitis cannot be excluded. Correlation with clinical and serologic findings is needed. The patient had a prior liver biopsy reviewed at [facility] (see accession number [id number]), although the slides are not available for direct comparison at this time. However, based on the microscopic description, it appears that fibrosis may have progressed. documented in this encounter Plan of Treatment Scheduled Orders Name Type Priority Associated Diagnoses Orde r Schedule US Abdomen Limited Hepatology Protocol Imaging Routine Primary biliary cholangitis Expected: 03/30/2024, Expires: 09/29/2024 CBC (with Diff) Lab Routine Primary biliary cholangitis Hepatic cirrhosis, unspecified hepatic cirrhosis type, unspecified whether ascites present Every 6 months for 4 Occurrences starting 09/28/2023 until 09/27/2024 Comprehensive metabolic panel (non-fasting) Lab Routine Primary biliary cholangitis Hepatic cirrhosis, unspecified hepatic cirrhosis type, unspecified whether ascites present Every 6 months for 4 Occurrences starting 09/28/2023 until 09/27/2024 AFP tumor marker Lab Routine Primary biliary cholangitis Hepatic cirrhosis, unspecified hepatic cirrhosis type, unspecified whether ascites present Every 6 months for 4 Occurrences starting 09/28/2023 until 09/27/2024 Prothrombin Time Lab Routine Primary biliary cholangitis Hepatic cirrhosis, unspecified hepatic cirrhosis type, unspecified whether ascites present Every 6 months for 4 Occurrences starting 09/28/2023 until 09/27/2024 documented as of this encounter Visit Diagnoses Diagnosis Primary biliary cholangitis Hepatic cirrhosis, unspecified hepatic cirrhosis type, unspecified whether ascites present documented in this encounter Care Teams Traffic Operations Manager Relationship Specialty Start Date End Date Nicolasa Prince APRN [address] [place] [id number] PCP - General Family Medicine 01/08/21 documented as of this encounter
--- OUTSIDE RECORDS SUMMARY | 2023-11-16 15:08 | XMS_ITS | Clinical Summary ---
Author Organization [facility] Address [address] [place] [address] Care Team Providers Care Security Alarm Technician Name Role Phone Unavailable Primary Care Provider Unavailabl e Social History Tobacco Use Types Packs/Day Years Used Date Smoking Tobacco: Never Assessed Sex and Gender Information Value Date Recorded Sex Assigned at Not on file Gender Identity Not on file Sexual Orientation Not on file Plan of Treatment Health Maintenance Due Date Last Done Comments Hepatitis C Screen 1950 RSV Immunization ( o r 60+ Years) (1 - 1-dose 60+ series) 2012 Fall Risk Screening 2017 COVID-19 Vaccine (2022-24 season) 2023
--- OUTSIDE RECORDS SUMMARY | 2023-11-16 15:08 | XMS_ITS | Encounter Summary ---
Author Organization [facility] Address [address] [place] [address] Care Team Providers Care Oil Lease Broker Name Role Phone Unavailable Primary Care Provider Unavailabl e Encounter Details Date Type Department Care Team (Late st Contact Info) Description 03/01/2023 Lab Requisition [facility] Pathology & [place] [address] Outr Resulting Lab, Provider Social History Tobacco Use Types Packs/Day Years Used Date Smoking Tobacco: Never Assessed Sex and Gender Information Value Date Recorded Sex Assigned at Not on file Gender Identity Not on file Sexual Orientation Not on file documented as of this encounter Plan of Treatment Not on file documented as of this encounter Procedures Procedure Name Priority Date/Time Associated Diagnosis Comments AFP TUMOR MARKER Routine 03/01/2023 10:4 5 EDT documented in this encounter Results * AFP TUMOR MARKER (03/01/2023 10:45 EDT) AFP Tumor Marker 2.7 <8.1 ng/mL 03/03/2023 8:[address] [facility] Comment: AFP Tumor Marker cannot be interpreted in females. ?? NOTE: Serum AFP concentrations should not be interpreted as absolute evidence for the presence or absence of malignant disease. Assayed on Siemens ADVIA Centaur XPT using chemiluminescent technology. ??Values obtained by using different assay methods cannot be used interchangeably. Blood VENOUS BLOOD / Unknown 03/01/2023 10:45 EDT 03/01/2023 16:49 EDT Provider Outr Resulting Lab CHEMISTRY & BLOOD GAS ORDERABLES [facility] [address] [place] [address] documented in this encounter Visit Diagnoses Not on filedocumented in this encounter
--- OUTSIDE RECORDS SUMMARY | 2023-11-16 15:08 | XMS_ITS | Encounter Summary ---
[facility] [place] [address] Care Team Providers Care Supervising Bailiff Name Role Phone Nicolasa Prince APRN Primary Care Provider +1- [phone] Encounter Details Date Type Department Care Team (Latest Contact Info) Description 09/28/2023 Travel Social History Tobacco Use Types Packs/Day Years [...] on file documented as of this encounter Visit Diagnoses Not on filedocumented in this encounter Care Teams Supervising Bailiff Relationship Specialty Start Date End Date Nicolasa Prince APRN [address] [place] [address] PCP - General Family Medicine 01/08/21 documented as of this encounter
--- OUTSIDE RECORDS SUMMARY | 2023-11-16 15:08 | XMS_ITS | Encounter Summary ---
Author Organization [facility] Address [facility] [place] [address] Care Team Providers Care Sanitary Landfill Operator Name Role Phone Nicolasa Prince YULIA Primary Care Provider [phone]- [phone] Encounter Details Date Type Department Care Team (Latest Contact Info) Description 09/28/2023 10:06 AM EDT - 09/28/2023 11:59 PM EDT Hospital Encounter [place] [phone] Carolynn Lamar MD [facility] [place] [place] [address] Biliary cirrhosis Discharge Disposition: Home Social History Tobacco Use Types Packs/Day Years Used Date Smoking Tobacco: Former Smokeless Tobacco: Never Alcohol Use Standard Drinks/Week Comments Not Currently 0 (1 standard drink = 0.6 oz pur e alcohol) Sex and Gender Information Value Date Recorded Sex Assigned at Not on file Gender Identity Not on file Sexual Orientation Not on file documented as of this encounter Medications at Time of Discharge Medication Sig Dispensed Refills Start Date End Date Ursodiol (Bridgette Forte) 500 mg tabletIndications:Autoim mune hepatitis TAKE 1 TABLET BY MOUTH TWICE DAILY 180 tablet 08/23/2023 fenofibrate (Tricor) 145 mg tabletIndications:Autoim mune hepatitis TAKE 1 TABLET BY MOUTH DAILY 90 tablet 3 03/16/2023 Rybelsus 7 mg tablet 01/18/2023 metoprolol succinate XL (Toprol-XL) 25 mg ER 24 hr tablet Take 25 mg by mouth Daily. 03/01/2019 losartan (Cozaar) 50 mg Tablet Take 2 tablets by mouth daily. 90 tablet 02/10/2022 cholecalciferol, Vitamin D3, 50 mcg (2,000 unit) Capsule Take by mouth. aspirin 325 mg Tablet Take 325 mg by mouth daily. documented as of this encounter Plan of Treatment Not on file documented as of this encounter Procedures Procedure Name Priority Date/Time Associated Diagnosis Comments US ABDOMEN LIMITED HEPATOLOGY PROTOCOL Routine 09/28/2023 10:54 AM EDT Biliary cirrhosis documented in this encounter Results * US Abdomen Limited Hepatology Protocol (09/28/2023 10:54 AM EDT) WORKSTATION ID [id number] RAD Anatomical Region Laterality Modality Abdomen Ultrasound 09/28/2023 10:3 4 AM EDT Impressions 09/28/2023 11:42 AM EDT 1. ??Similar hepatomegaly with coarse, heterogeneous liver parenchyma and capsular nodularity, consistent with known cirrhosis. No sonographically evident hepatic mass. 2. ??No intra-abdominal ascites. 3. ??Distended gallbladder without cholelithiasis or evidence of acute cholecystitis. No biliary ductal dilatation. I have personally reviewed the image(s) and the resident's interpretation and agree with the findings, Fiordaliza Fabian MD at 09/28/2023 11:34 AM Electronically signed by: Fiordaliza Fabian MD, [facility] ([phone]), at 09/28/2023 11:34 AM Thank you for letting us participate in the care of this patient. If you are a health care provider and have any questions regarding this report, please contact the number above. For patients who have questions, please contact the health physician locums urgent care that requested your imaging first. ?Fiordaliza Fabian E Work Manager Electronically Signed Final Report ?? 09/28/2023 11:41 am Narrative 09/28/2023 11:42 AM EDT Abdominal ? (Signed Final 09/28/2023 11:41 am) PATIENT INFO: ID #: ? [id number] ?: ??[birth year] (72 yrs)(F) Name: ? PREMA VERDUGOOneida ?Visit Date: 09/28/2023 10:34 am PERFORMED BY: Attending: ?Caren LUTHER, Fiordaliza Prado Resident: ? Martha LUTHER, Madhavi Performed By: ? Joanna Bronson RDMS Referred By: ?CAROLYNN LAMAR Location: ? [place] SERVICE(S) PROVIDED: [facility] - Hepatology Protocol - Abdominal ?[id number] Limited Survey Single Organ or Quadrant - [id number] INDICATIONS: cirrhosis, screen for hcc COMPARISON: US abdomen limited hepatology protocol 03/2023 ------ LIVER: ------ Right Lobe Length: ?? 20.5 ?? cm Echogenicity/Echotexture: ?? Coarse heterogeneous echogenic ? parenchyma with capsular ? nodularity Portal Veins: ?Patent main PV where interrogated Hepatic Veins: ?? Patent where interrogated Comment: ?No focal lesion seen. GALLBLADDER: Cholelithiasis: ?No stones visualized Wall Thickness: ?1.7 mm, normal Focal Tenderness: ?Negative sonographic Flores's sign Comment: ?Distended, measuring approximately 10.7 cm in ? length. BILIARY TRACT: Intrahepatic Ducts: ?? Normal Extrahepatic Ducts: ?? Normal where seen Common Duct Size: ? 2.7 ? mm FLUID COLLECTIONS: Ascites not present on 4 quadrant evaluation. Procedure Note Fiordaliza Fabian MD - 09/28/2023 Abdominal (Signed Final 09/28/2023 11:41 am) PATIENT INFO: ID #: [id number] : 54 (72 yrs)(F) Name: PREMA SALGADO Visit Date: 09/28/2023 10:34 am PERFORMED BY: Attending: Fiordaliza Fabian MD Resident: Madhavi Thomas MD Performed By: Joanna Bronson RDMS Referred By: ACROLYNN LAMAR Location: [place] SERVICE(S) PROVIDED: [facility] - Hepatology Protocol - Abdominal [id number] Limited Survey Single Organ or Quadrant - [id number] INDICATIONS: cirrhosis, screen for hcc COMPARISON: US abdomen limited hepatology protocol 03/2023 ------ LIVER: ------ Right Lobe Length: 20.5 cm Echogenicity/Echotexture: Coarse heterogeneous echogenic parenchyma with capsular nodularity Portal Veins: Patent main PV where interrogated Hepatic Veins: Patent where interrogated Comment: No focal lesion seen. GALLBLADDER: Cholelithiasis: No stones visualized Wall Thickness: 1.7 mm, normal Focal Tenderness: Negative sonographic Flores's sign Comment: Distended, measuring approximately 10.7 cm in length. BILIARY TRACT: Intrahepatic Ducts: Normal Extrahepatic Ducts: Normal where seen Common Duct Size: 2.7 mm FLUID COLLECTIONS: Ascites not present on 4 quadrant evaluation. IMPRESSION 1. Similar hepatomegaly with coarse, heterogeneous liver parenchyma and capsular nodularity, consistent with known cirrhosis. No sonographically evident hepatic mass. 2. No intra-abdominal ascites. 3. Distended gallbladder without cholelithiasis or evidence of acute cholecystitis. No biliary ductal dilatation. I have personally reviewed the image(s) and the resident's interpretation and agree with the findings, Fiordaliza Fabian MD at 09/28/2023 11:34 AM Thank you for letting us participate in the care of this patient. If you are a health care provider and have any questions regarding this report, please contact the number above. For patients who have questions, please contact the health physician locums urgent care that requested your imaging first. Fiordaliza Fabian, GME Work Manager Electronically Signed Final Report 09/28/2023 11:41 am Carolynn Lamar MD IMG US GEN ORDERABLE S documented in this encounter Visit Diagnoses Diagnosis Biliary cirrhosis documented in this encounter Care Teams Sanitary Landfill Operator Relationship Specialty Start Date End Date Nicolasa Prince APRN [address] [place] [id number] PCP - General Family Medicine 01/08/21 documented as of this encounter
--- OUTSIDE RECORDS SUMMARY | 2023-11-16 15:08 | XMS_ITS | Encounter Summary ---
[place] [address] Care Team Providers Care Shell Sieve Operator Name Role Phone Nicolasa Prince APRN Primary Care Provider +1- [phone] Encounter Details Date Type Department Care Team (Latest Contact Info) Description 09/28/2023 11:15 AM EDT Laboratory Appointment Lab [address] [place] [phone] Primary biliary cholangitis Social History Tobacco Use Types Packs/Day Years [...] Procedure Name Priority Date/Time Associated Diagnosis Comments HC VENIPUNCTURE Routine 09/28/2023 11:46 AM EDT Primary biliary cholangitis documented in this encounter Results * Hepatic Function Panel (09/28/2023 11:46 AM EDT) Total Protein 7.6 6.1 - 8.0 g/dL [facility] Albumin 4.4 3.2 - 5.2 g/dL [facility] AST 25 0 - 30 unit/L [facility] ALT 23 0 - 30 unit/L [facility] Alk Phos 70 35 - 105 unit/L [facility] Total Bilirubin 0.7 0.2 - 1.3 mg/dL [facility] Bili, Direct 0.3 0.0 - 0.3 mg/dL [facility] Blood 09/28/2023 11:4 6 AM EDT 09/28/2023 11:51 AM EDT Narrative Resulting Agency Comment Spec In Lab Irene Lara MD CHEMISTRY ORDERABLES Performing Organization Address City/State/[facility] Co de Phone Number [facility] [place] [address] documented in this encounter Visit Diagnoses Diagnosis Primary biliary cholangitis documented in this encounter Care Teams Shell Sieve Operator Relationship Specialty Start Date End Date Nicolasa Prince APRN [address] [place] [id number] PCP - General Family Medicine 01/08/21 documented as of this encounter
--- OUTSIDE RECORDS SUMMARY | 2023-11-16 15:08 | XMS_ITS | Clinical Summary ---
Author Organization [facility] Address [facility] [place] [address] Care Team Providers Care Wireless Communications Engineer Name Role Phone Nicolasa Prince YULIA Primary Care Provider +1- [phone] Allergies Active Allergy Reactions Criticality Noted Date Comments Amoxicillin 01/22/2021 Ciprofloxacin 01/22/2021 Egg Derived Other (See Comments),Anaphylaxi s,Hives,Itching High 02/17/2013 Also Egg Metformin Nausea And Vomiting Low 10/29/2020 Mold Other (See Comments) 01/22/2021 Also SMUT Abolipj-Ggk-Yxc Reductase Inhibitors Low 10/25/2020 Other reaction(s): Myalgia/Myositis/A rthralgia/Arthriti s Medications Medication Sig Dispensed Refills Start Date End Date Status aspirin 325 mg Tablet Take 325 mg by mouth daily. Active cholecalciferol, Vitamin D3, 50 mcg (2,000 unit) Capsule Take by mouth. Active losartan (Cozaar) 50 mg Tablet Take 2 tablets by mouth daily. 90 tablet 02/10/2022 Active Rybelsus 7 mg tablet 01/18/2023 Acti ve metoprolol succinate XL (Toprol-XL) 25 mg ER 24 hr tablet Take 25 mg by mouth Daily. 03/01/2019 Active fenofibrate (Tricor) 145 mg tabletIndications:Au toimmune hepatitis TAKE 1 TABLET BY MOUTH DAILY 90 tablet 3 03/16/2023 Active Ursodiol (Bridgette Forte) 500 mg tabletIndications:Au toimmune hepatitis TAKE 1 TABLET BY MOUTH TWICE DAILY 180 tablet 08/23/2023 Active Active Problems Problem Noted Date Diagnosed Date Atherosclerotic heart diseas e of [place] coronary artery without angina pectoris 01/22/2021 Encounters Date Type Department Care Team Description 09/28/2023 1:00 PM EDT [place] [address] Carolynn Lamar MD Primary biliary cholangitis; Hepatic cirrhosis, unspecified hepatic cirrhosis type, unspecified whether ascites present 09/28/2023 11:15 AM EDT Laboratory Appointment Lab [address] [address] Primary biliary cholangitis 09/28/2023 10:06 AM EDT - 09/28/2023 11:59 PM EDT Hospital [place] [address] Carolynn Lamar MD Biliary cirrhosis Discharge Disposition: Home 09/28/2023 Travel 08/23/2023 [place] [address] Carolynn Lamar MD Autoimmune hepatitis from Last 3 Months Social History Tobacco Use Types Packs/Day Years Used Date Smoking Tobacco: Former Smokeless Tobacco: Never Tobacco Cessation:Counseling Given: Not Answered Alcohol Use Standard Drinks/Week Comments Not Currently 0 (1 standard drink = 0.6 oz pur e alcohol) Sex and Gender Information Value Date Recorded Sex Assigned at Not on file Gender Identity Not on file Sexual Orientation Not on file Last Filed Vital Signs Vital Sign Reading Time Taken Comments Blood Pressure 118/57 09/28/2023 1:10 PM EDT Pulse 83 09/28/2023 1:10 PM EDT Temperature 36.5 ??C (97.7 ??F) 08/07/2022 1:44 PM ED T Respiratory Rate 17 02/19/2023 2:50 PM EDT Oxygen Saturation 95% 02/19/2023 2:36 PM EDT Inhaled Oxygen Concentration - - Weight 97.3 kg (214 lb 6.4 oz) 09/28/2023 1:10 P M EDT Height 170.2 cm (5' 7) 09/28/2023 1:10 PM EDT Body Mass Index 33.58 09/28/2023 1:10 PM EDT Plan of Treatment Health Maintenance Due Date Last Done Comments CT Colonography 1950 FIT DNA 1950 FIT 1950 Sigmoidoscopy 1950 Hepatitis C Screening 1970 Lipid Screening 1970 Tdap adult 12/08/1971 Tetanus vaccine 12/08/1971 Breast Cancer Share Decision Needed 1992 Breast Cancer screening 1992 Zoster vaccine (1 of 2) 2002 Advance Directive 12/08/2007 Bone Density Scan 2017 Pneumoccocal Vaccine: 65+ (1 of 1 - PCV) 2017 Covid-19 Vaccine (1 - 2022-2 4 season) 2023 Influenza (Flu) vaccine (1 o f 1 - Influenza standard series) 01/02/2024 Colonoscopy 02/19/2026 02/19/2023, 02/01, 08/07/2022, Additional history exists Colorectal Cancer Screening 02/19/2026 Diabetes Screening (HgbA1C o r Glucose) 03/30/2026 03/30/2023, 03/01/2023, 01/26/2023, Additional history exists Sigmoidoscopy (10 year) with FIT yearly 02/19/2033 02/19/2023, 02/19/2023, 08/07/2022, Additional history exists Procedures Procedure Name Priority Date/Time Associated Diagnosis Comments HC VENIPUNCTURE Routine 09/28/2023 11:46 AM EDT Primary biliary cholangitis US ABDOMEN LIMITED HEPATOLOGY PROTOCOL Routine 09/28/2023 10:54 AM EDT Biliary cirrhosis COMPREHENSIVE METABOLIC PANEL (NON-FASTING) Routine 03/30/2023 10:23 AM EST Primary biliary cholangitis Hepatic cirrhosis, unspecified hepatic cirrhosis type, unspecified whether ascites present COLONOSCOPY Routine 02/19/2023 1:47 PM EDT from Last 3 Months or Most Recently Relevant to Health Maintenance Results * Hepatic Function Panel (09/28/2023 11:46 AM EDT) Total Protein 7.6 6.1 - 8.0 g/dL [facility] Albumin 4.4 3.2 - 5.2 g/dL [facility] AST 25 0 - 30 unit/L [facility] ALT 23 0 - 30 unit/L [facility] Alk Phos 70 35 - 105 unit/L [facility] Total Bilirubin 0.7 0.2 - 1.3 mg/dL [facility] Bili, Direct 0.3 0.0 - 0.3 mg/dL [facility] Blood 09/28/2023 11:4 6 AM EDT 09/28/2023 11:51 AM EDT Narrative Resulting Agency Comment Spec In Lab Carolynn Lamar MD CHEMISTRY ORDERABLES [facility] [place] [address] * US Abdomen Limited Hepatology Protocol (09/28/2023 10:54 AM EDT) WORKSTATION ID [id number] RAD Anatomical Region Laterality Modality Abdomen Ultrasound [...] AM Electronically signed by: Fiordaliza Fabian MD, [facility] ([phone]), at 09/28/2023 11:34 AM Thank you for letting us participate in the care of this patient. If you are a health care provider and have any questions regarding this report, please contact the number above. For patients who have questions, please contact the health toddler caregiver that requested your imaging first. ?Fiordaliza Fabian, [facility] Pediatric Physician Electronically Signed Final Report ?? 09/28/2023 11:41 am Narrative 09/28/2023 11:42 AM EDT Abdominal ? (Signed Final 09/28/2023 11:41 am) PATIENT INFO: ID #: ? [id number] ?: ??[birth year] (72 yrs)(F) Name: ? PREMA SALGADO ?Visit Date: 09/28/2023 10:34 am PERFORMED BY: Attending: ?Caren LUTHER, Fiordaliza Prado Resident: ? Madhavi Thomas MD Performed By: ? Joanna Bronson RDMS Referred By: ?CAROLYNN LAMAR Location: ? [place] SERVICE(S) PROVIDED: [facility] - Hepatology Protocol - Abdominal ?[id number] Limited Survey Single Organ or Quadrant - [id number] INDICATIONS: cirrhosis, screen for hcc COMPARISON: US [...] 09/28/2023 11:41 am) PATIENT INFO: ID #: [id number] : [birth year] (72 yrs)(F) Name: PREMA SALGADO Visit Date: 09/28/2023 10:34 am PERFORMED BY: Attending: Fiordaliza Fabian MD Resident: Madhavi Thomas MD Performed By: Joanna Bronson RDMS Referred By: CAROLYNN LAMAR Location: [place] [facility] - Hepatology Protocol - Abdominal 41868 Limited Survey Single Organ or Quadrant - [id number] INDICATIONS: cirrhosis, screen for hcc COMPARISON: US [...] who have questions, please contact the health toddler caregiver that requested your imaging first. Fiordaliza Fabian, [facility] Pediatric Physician Electronically Signed Final Report 09/28/2023 11:41 am Carolynn Lamar MD IMG US GEN ORDERABLE S * (ABNORMAL) Comprehensive metabolic panel (non-fasting) (03/30/2023 10:23 AM EST) Glucose Lvl 110 65 - 199 mg/dL [facility] Comment:Diabetes: >=200 mg/d L plus symptoms BUN 20(H) 8 - 18 mg/dL [facility] Creatinine 0.82 0.70 - 1.20 mg/dL [facility] Sodium 140 135 - 145 mmol/L [facility] Potassium 4.1 3.5 - 5.0 mmol/L [facility] Comment: Please note: ??Patients with WBC >100,000 may have falsely elevated Potassium levels. ??For accurate Potassium quantification in these patients send serum separator tube (gold top) for subsequent determinations. ??Contact the Clinical Chemistry Laboratory if there are any questions. Chloride 105 98 - 107 mmol/L [facility] CO2 22 22 - 31 mmol/L [facility] Anion Gap 13 5 - 15 mmol/L [facility] Calcium 9.8 8.5 - 10.5 mg/dL [facility] Total Protein 7.2 6.1 - 8.0 g/dL [facility] Albumin 4.4 3.2 - 5.2 g/dL [facility] AST 31(H) 0 - 30 unit/L [facility] ALT 24 0 - 30 unit/L [facility] Alk Phos 64 35 - 105 unit/L [facility] Total Bilirubin 0.7 0.2 - 1.3 mg/dL [facility] Estimated GFR 77 >=60 mL/min/1. 73 m?? [facility] Comment: This patient's estimated GFR was calculated using the 2020 CKD-EPI equation. The estimated GFR can vary from the measured GFR by up to 30% in the absence of rapidly changing kidney function. Assessment of the estimated GFR is not appropriate when creatinine concentrations are rapidly changing. For clinical situations in which a more precise estimate of GFR is necessary, consider alternative methods of GFR estimation such as a 24-hour urine creatinine clearance. Assignment of CKD stage 1-5 for patients with an eGFR near the transition point between stages may be based on clinical assessment of muscle mass and symptoms in addition to eGFR. Blood 03/30/2023 10:2 3 AM EST 03/30/2023 10:31 AM EST Narrative Resulting Agency Comment Spec In Lab Carolynn Lamar MD CHEMISTRY ORDERABLES Performing Organization Address City/State/[facility] Co de Phone Number [facility] [place] [place] [address] * COLONOSCOPY (02/19/2023 1:47 PM EDT) COLONOSCOPY [facility] Endoscopy Procedure Date: 02/19/2023 1:47 PM ? Patient Name: Prema Salgado ? Date of : 1950 ? Age: 72 ? Order #: [id number] ? Instrument Name: [id number] ? Procedure: ? Colonoscopy Indications: ? Follow-up for history of ? adenomatous polyps in the colon Providers: ? Elin Carlson MD, Damon Jean ? Lucy Archer MD: ?Nicolasa H. Chute Medicines: ? Midazolam 4 mg IV, Fentanyl 200 ? micrograms IV Complications: ? No immediate complications. Procedure: ? Pre-Anesthesia Assessment: ? - Prior to the procedure, a History ? and Physical was performed, and ? patient medications and allergies ? were reviewed. The patient's ? tolerance of previous anesthesia ? was also reviewed. The risks and ? benefits of the procedure and the ? sedation options and risks were ? discussed with the patient. All ? questions were answered, and ? informed consent was obtained. ? Prior Anticoagulants: The patient ? has taken no anticoagulant or ? antiplatelet agents. ASA Grade ? Assessment: II - A patient with ? mild systemic disease. After ? reviewing the risks and benefits, ? the patient was deemed in ? satisfactory condition to undergo ? the procedure. ? The procedure, indications, ? benefits, risks and alternatives ? were explained to the patient. ? Specifically discussed were ? potential complications including, ? but not limited to, bleeding, ? perforation, infection, missing a ? cancer, and adverse medication ? reactions. The patient was placed ? in the left lateral decubitus ? position, and a digital rectal exam ? was performed. The Colonoscope was ? inserted in the anus and under ? direct visualization, advanced to ? the cecum, identified by ? appendiceal orifice and ileocecal ? valve. Careful inspection was made ? as the colonoscope was withdrawn. ? The colonoscopy was performed ? without difficulty. The patient ? tolerated the procedure well. The ? quality of the bowel preparation ? was evaluated using the BBPS ? ([place] Bowel Preparation Scale) ? with scores of: Right Colon = 3, ? Transverse Colon = 3 and Left Colon ? = 3 (entire mucosa seen well with ? no residual staining, small ? fragments of stool or opaque ? liquid). The total BBPS score ? equals 9. The terminal ileum, ? ileocecal valve, appendiceal ? orifice, and rectum were ? photographed. Withdrawal time was ? 13 minutes. ? Findings: ? The perianal and digital rectal examinations were ? normal. ? The terminal ileum appeared normal. ? Two sessile polyps were found in the ascending colon. ? The polyps were 1 to 2 mm in size. These polyps were ? removed with a cold snare. Resection and retrieval ? were complete. Estimated blood loss: none. ? A 1 mm polyp was found in the rectum. The polyp was ? sessile. The polyp was removed with a cold snare. ? Resection and retrieval were complete. Estimated ? blood loss: none. ? A tattoo was seen in the descending colon. A ? post-polypectomy scar was found at the tattoo site. ? There was no evidence of residual polyp tissue. ? The retroflexed view of the distal rectum and anal ? verge was normal and showed no anal or rectal ? abnormalities. ? Moderate Sedation: ? I was present during the intraservice time as ? documented by the sedation RN. Impression: ?- The examined portion of the ileum ? was normal. ? - Two 1 to 2 mm polyps in the ? ascending colon, removed with a ? cold snare. Resected and retrieved. ? - One 1 mm polyp in the rectum, ? removed with a cold snare. Resected ? and retrieved. ? - A tattoo was seen in the ? descending colon. A ? post-polypectomy scar was found at ? the tattoo site. There was no ? evidence of residual polyp tissue. ? - The distal rectum and anal verge ? are normal on retroflexion view. Recommendation: ?- Await pathology results. ? - Repeat colonoscopy in 3 years for ? surveillance. ? - Return to referring physician. ? Procedure Code(s): ? --- Professional --- ? 70033, Colonoscopy, flexible; with ? removal of tumor(s), polyp(s), or ? other lesion(s) by snare technique CPT copyright 2021 [employer]. All rights reserved. The codes documented in this report are preliminary and upon worksite wellness practitioner review may be revised to meet current compliance requirements. Attending Participation: ? I personally performed the entire procedure. ? Elin Carlson MD _ Elin Carlson MD 02/19/2023 2:36:53 PM This report has been signed electronically. Number of Addenda: 0 Note Initiated On: 02/19/2023 1:47 PM [employer]ATION 02/19/2023 1:47 PM EDT Nicolasa Prince BIRD SITTER GENERAL SURGICAL O RDERABLES Performing Organization Address City/State/[facility] Co de Phone Number PROVATION from Last 3 Months or Most Recently Relevant to Health Maintenance Care Teams Wireless Communications Engineer Relationship Specialty Start Date End Date Nicolasa Prince BIRD SITTER [address] [place] [id number] PCP - General Family Medicine 01/08/21
--- OUTSIDE RECORDS SUMMARY | 2023-11-16 15:08 | XMS_ITS | Referral Summary ---
Author Organization [facility] Address [address] [place] [address] Care Team Providers Care Computer Network Specialist Name Role Phone Unavailable Primary Care Provider Unavailabl e Social History Tobacco Use Types Packs/Day Years Used Date Smoking Tobacco: Never Assessed Sex and Gender Information Value Date Recorded Sex Assigned at Not on file Gender Identity Not on file Sexual Orientation Not on file Plan of Treatment Not on file
--- OUTSIDE RECORDS SUMMARY | 2023-11-16 15:09 | XMS_ITS | Encounter Summary ---
Author Organization [facility] [place] [address] Care Team Providers Care Linting Machine Operator Name Role Phone Nicolasa Prince APRN Primary Care Provider +1- [phone] Encounter Details Date Type Department Care Team (Late st Contact Info) Description 01/27/2023 External [place] [address] Irene Lara MD [facility] [place] [address] Social History Tobacco Use Types Packs/Day Years Used Date Smoking Tobacco: Former Smokeless Tobacco: Never Alcohol Use Standard Drinks/Week Comments Yes 3 (1 standard drink = 0.6 oz pur e alcohol) Sex and Gender Information Value Date Recorded Sex Assigned at Not on file Gender Identity Not on file Sexual Orientation Not on file documented as of this encounter Plan of Treatment Not on file documented as of this encounter Procedures Procedure Name Priority Date/Time Associated Diagnosis Comments EXTERNAL LAB CBC CMP THYROID RESULTS PANEL Routine 01/26/2023 documented in this encounter Results * CBC / CMP / Thyroid External Results (01/26/2023) WBC 3.37 RBC 5.15 Hemoglobin 16.2 Hematocrit 48.1 MCV 93.0 Platelets 129 Sodium 138 Potassium 3.9 Chloride 104 CO2 24 BUN 22 Creatinine 0.9 Estimated GFR 68.77 Glucose Lvl 121 Calcium 10.2 Total Protein 8.0 Albumin 3.8 Total Bilirubin 0.9 Alk Phos 76 AST 28 ALT 29 Historical Provider EXTERNAL LAB ISREAL BEEBE documented in this encounter Visit Diagnoses Not on filedocumented in this encounter Care Teams Linting Machine Operator Relationship Specialty Start Date End Date Nicolasa Prince APRN [address] [address] PCP - General Family Medicine 01/08/21 documented as of this encounter
--- OUTSIDE RECORDS SUMMARY | 2023-11-16 15:09 | XMS_ITS | Encounter Summary ---
Author Organization [facility] [place] [address] Care Team Providers Care Door Operator Name Role Phone Nicolasa Prince APRN Primary Care Provider +1- [phone] Encounter Details Date Type Department Care Team (Late st Contact Info) Description 03/09/2023 External Results [place] [address] Isabela March RN Social History Tobacco Use Types Packs/Day Years [...] LAB CBC CMP THYROID RESULTS PANEL Routine 03/01/2023 documented in this encounter Results * CBC / CMP / Thyroid External Results (03/01/2023) WBC 3.69 EXTERNAL LAB RBC 4.97 EXTERNAL LAB Hemoglobin 15.9 EXTERNAL LAB Hematocrit 45.7 EXTERNAL LAB MCV 92.0 EXTERNAL LAB Platelets 138 EXTERNAL LAB Sodium 137 EXTERNAL LAB Potassium 4.2 EXTERNAL LAB Chloride 104 EXTERNAL LAB CO2 23 EXTERNAL LAB BUN 26 EXTERNAL LAB Creatinine 0.8 EXTERNAL LAB Estimated GFR 79.22 EXTERNAL LAB Glucose Lvl 124 EXTERNAL LAB Calcium 10.0 EXTERNAL LAB Total Protein 8.0 EXTERNAL LAB Albumin 3.7 EXTERNAL LAB Total Bilirubin 0.5 EXTERNAL LAB Alk Phos 63 EXTERNAL LAB AST 26 EXTERNAL LAB ALT 23 EXTERNAL LAB AFP 2.7 EXTERNAL LAB PT 10.4 EXTERNAL LAB INR 1.00 EXTERNAL LAB 03/01/2023 Historical Provider EXTERNAL LAB ISRAEL BEEBE EXTERNAL LAB documented in this encounter Visit Diagnoses Not on filedocumented in this encounter Care Teams Door Operator Relationship Specialty Start Date End Date Nicolasa Prince, [employer] ADMIN [address] [place] [address] PCP - General Family Medicine 01/08/21 documented as of this encounter
--- OUTSIDE RECORDS SUMMARY | 2023-11-16 15:09 | XMS_ITS | Encounter Summary ---
Author [facility] [place] [address] Care Team Providers Care Candles Pourer Name Role Phone Nicolasa Prince APRN Primary Care Provider +1- [phone] Encounter Details Date Type Department Care Team (Latest Contact Info) Description 03/30/2023 Travel Social History Tobacco Use Types Packs/Day [...] on filedocumented in this encounter Care Teams Candles Pourer Relationship Specialty Start Date End Date Nicolasa Prince APRN [address] [place] [address] PCP - General Family Medicine 01/08/21 documented as of this encounter
--- OUTSIDE RECORDS SUMMARY | 2023-11-16 15:09 | XMS_ITS | Encounter Summary ---
Author Organization [facility] Address [facility] [place] [address] Care Team Providers Care Survey Research Manager Name Role Phone Nicolasa Prince APRN Primary Care Provider +1- [phone] Encounter Details Date Type Department Care Team (Late st Contact Info) Description 11/02/2022 External Results Gastroenterology at [facility] [place] [address] Irene Lara MD [facility] [place] [address] Social History Tobacco Use Types Packs/Day Years [...] LAB CBC CMP THYROID RESULTS PANEL Routine 10/30/2022 documented in this encounter Results * CBC / CMP / Thyroid External Results (10/30/2022) Total Protein 8.0 Albumin 3.8 Total Bilirubin 1.1 Alk Phos 86 AST 32 ALT 31 Historical Provider EXTERNAL LAB ISRAEL BEEBE documented in this encounter Visit Diagnoses Not on filedocumented in this encounter Care Teams Survey Research Manager Relationship Specialty Start Date End Date Nicolasa Prince APRN [address] [place] [id number] PCP - General Family Medicine 01/08/21 documented as of this encounter
--- OUTSIDE RECORDS SUMMARY | 2023-11-16 15:09 | XMS_ITS | Encounter Summary ---
Author Organization [facility] [place] [address] Care Team Providers Care Counter Dish Carrier Name Role Phone Nicolasa Prince APRN Primary Care Provider +1- [phone] Reason for Visit * Reason Comments Medication Refill Encounter Details Date Type Department Care Team (Late st Contact Info) Description 07/17/2022 Refill [place] [address] Irene Lara MD [facility] [place] [address] Autoimmune hepatitis Social History Tobacco Use Types Packs/Day Years Used Date Smoking Tobacco: Former Smokeless Tobacco: Never Sex and Gender Information Value Date Recorded Sex Assigned at Not on file Gender Identity Not on file Sexual Orientation Not on file documented as of this encounter Miscellaneous Notes * Telephone Encounter - Isabela March RN - 07/20/2022 1:04 PM EDT Spoke with patient. She is overdue for labs. She would like orders faxed to [facility]. Orders sent. Provided patient with contact information for [facility] Lab. documented in this encounter Plan of Treatment Not on file documented as of this encounter Visit Diagnoses Diagnosis Autoimmune hepatitis documented in this encounter Care Teams Counter Dish Carrier Relationship Specialty Start Date End Date Nicolasa Prince APRN [address] [place] [address] PCP - General Family Medicine 01/08/21 documented as of this encounter
--- OUTSIDE RECORDS SUMMARY | 2023-11-16 15:09 | XMS_ITS | Encounter Summary ---
Author Organization [facility] [place] [address] Care Team Providers Care Regulatory Administrator Name Role Phone Nicolasa Prince APRN Primary Care Provider +1- [phone] Reason for Visit * Reason Comments Medication Refill Encounter Details Date Type Department Care Team (Late st Contact Info) Description 08/23/2023 Ref[place] [address] Irene Lara MD [facility] [place] [address] Autoimmune hepatitis Social History Tobacco Use Types [...] hepatitis documented in this encounter Care Teams Regulatory Administrator Relationship Specialty Start Date End Date Nicolasa Prince APRN [address] [place] [address] PCP - General Family Medicine 01/08/21 documented as of this encounter
--- OUTSIDE RECORDS SUMMARY | 2023-11-16 15:09 | XMS_ITS | Encounter Summary ---
Author Organization [facility] [place] [address] Care Team Providers Care Bee Farmer Name Role Phone Nicolasa Prince APRN Primary Care Provider [phone]- [phone] Reason for Visit * Auth/Cert (Routine) Specialty Diagnoses / Procedures Referred By Minh t Referred To Contact Diagnoses Encounter for screening for malignant neoplasm of colon 6 month Procedures PRO COLONOSCOPY, DIAGNOSTIC PRO COLONOSCOPY, BIOPSY PRO COLONOSCOPY, REMV LESN, SNARE PRO ANES, LWR INTESTINE, SCREENING COLONOSCOPY COLONOSCOPY,SCREENING (WRVU 3.26) Elin Carlson [place] [facility] [place] [address] [facility] Referral ID Status Reason Start Date Expiration Date Visits Re quested Visits Authorized [id number] 1 1 Encounter Details Date Type Department Care Team (Latest Contact Info) Description 02/19/2023 12:41 PM EDT - 02/19/2023 3:29 PM EDT Hospital Encounter Gastroenterology at [facility] [place] [address] Elin Carlson [place] [facility] [place] [address] Discharge Disposition: Home Social History Tobacco Use [...] Sign Reading Time Taken Comments Blood Pressure 117/85 02/19/2023 2:36 PM EDT Pulse 75 02/19/2023 2:25 PM EDT Temperature - - Respiratory Rate 17 02/19/2023 2:50 PM EDT Oxygen Saturation 95% 02/19/2023 2:36 PM EDT Inhaled Oxygen Concentration - - Weight 93.4 kg (206 lb) 02/19/2023 1:04 PM EDT Height - - Body Mass Index 32.26 09/30/2022 12:48 PM EDT documented in this encounter Discharge Instructions * Discharge Instructions* Jannie Driscoll RN - 02/19/2023 2:45 PM EDT Colonoscopy: What to Expect at Home Your Recovery Your doctor will talk to you about when you will need your next colonoscopy. Your doctor can help you decide how often you need to be checked. This will depend on the results of your test and your risk for colorectal cancer. After the test, you may be bloated or have gas pains. You may need to pass gas. If a biopsy was done or a polyp was removed, you may have streaks of blood in your stool (feces) for a few days. Problems such as heavy rectal bleeding may not occur until several weeks after the test. This isn't common. But it can happen after polyps are removed. This care sheet gives you a general idea about how long it will take for you to recover. But each person recovers at a different pace. Follow the steps below to get better as quickly as possible. How can you care for yourself at home? Activity Rest when you feel tired. You can do your normal activities when it feels okay to do so. Diet Follow your doctor's directions for eating. Unless your doctor has told you not to, drink plenty of fluids. This helps to replace the fluids that were lost during the colon prep. Do not drink alcohol. Medicines Your doctor will tell you if and when you can restart your medicines. He or she will also give you instructions about taking any new medicines. If you take blood thinners, such as warfarin (Coumadin), clopidogrel (Plavix), or aspirin, be sure to talk to your doctor. He or she will tell you if and when to start taking those medicines again. Make sure that you understand exactly what your doctor wants you to do. If polyps were removed or a biopsy was done during the test, your doctor may tell you not to take aspirin or other anti-inflammatory medicines for a few days. These include ibuprofen (Advil, Motrin) and naproxen (Aleve). Other instructions For your safety, do not drive or operate machinery until the medicine wears off and you can think clearly. Your doctor may tell you not to drive or operate machinery until the day after your test. Do not sign legal documents or make major decisions until the medicine wears off and you can think clearly. The anesthesia can make it hard for you to fully understand what you are agreeing to. Additional Information for Sedation Patients For patients who received sedation: You may have received medications before and/or during your procedure which effects your judgement and reaction time. Do not drive, operate machinery, drink alcoholic beverages or make important decisions for 24 hours. Be careful on stairs as you may be unsteady on your feet. You may eat a regular diet as tolerated. Do not smoke if you are alone. IV site: Slight redness or tenderness is normal, you can use a warm compress if you would like. If tenderness and/or redness increase or if foul drainage occurs, please contact your Doctor. Please call [phone] before 8pm Mon-Fri with problems, questions or concerns. If you call after 8pm or on weekends, call the Hospital at [phone] and ask to speak to the Tnt Powder Worker seed production field supervisor and the meat grading machine operator will contact that person for you. When should you call for help? Call [phone] anytime you think you may need emergency care. For example, call if: You passed out (lost consciousness). You pass maroon or bloody stools. You have trouble breathing. Call your doctor now or seek immediate medical care if: You have pain that does not get better after you take pain medicine. You are sick to your stomach or cannot drink fluids. You have new or worse belly pain. You have blood in your stools. You have a fever. You cannot pass stools or gas. Watch closely for changes in your health, and be sure to contact your doctor if you have any problems. Where can you learn more? [email or web address] View your After Visit Summary and more online at [email or web address] If you would like to provide feedback about your hospital experience, please call the Office of Patient and Family Relations at . If you have received this After Visit Summary in error, please immediately return it in person to the department, or notify the [facility] Privacy Office by calling toll free at between the hours of 8AM and 5PM to arrange for our retrieval of the documents at no cost to you. Content Version: 12.2 ?? 8712-9867 [employer]. Care instructions adapted under license by [facility]. If you have questions about a medical condition or this instruction, always ask your healthcare professional. [employer] disclaims any warranty or liability for your use of this information. documented in this encounter Medications at Time of Discharge Medication Sig Dispensed Refills Start Date End Date Rybelsus 7 mg tablet 01/18/2023 metoprolol succinate XL (Toprol-XL) 25 mg ER 24 hr tablet Take 25 mg by mouth Daily. 03/01/2019 losartan (Cozaar) 50 mg Tablet Take 2 tablets by mouth daily. 90 tablet 02/10/2022 cholecalciferol, Vitamin D3, 50 mcg (2,000 unit) Capsule Take by mouth. aspirin 325 mg Tablet Take 325 mg by mouth daily. Rybelsus 3 mg tablet 10/30/2022 024 fenofibrate (Tricor) 145 mg tabletIndications:Autoi mmune hepatitis TAKE 1 TABLET BY MOUTH DAILY 90 tablet 12/15/2022 03/16/2023 Ursodiol (Bridgette Forte) 500 mg tabletIndications:Autoi mmune hepatitis TAKE 1 TABLET BY MOUTH TWICE DAILY 180 tablet 2 10/15/2022 08/23/2023 azaTHIOprine (Imuran) 50 mg Tablet Take 1 tablet by mouth daily. 90 tablet 3 02/10/2022 09/28/2023 Jardiance 25 mg Tablet 01/22/202109/27 Tradjenta 5 mg Tablet 01/22/20212023 documented as of this encounter H&P Notes * Elin Carlson MD - 02/19/2023 1:45 PM EDT Patient Name: Cookie Salgado Patient Age: 72 y.o. Birthdate: 1950 Admit date: 02/19/2023 Attending Physician: Elin Carlson MD Gastroenterology and Hepatology Pre-Procedure History and Physical Exam Procedure: Colonoscopy: Indication: f/u piecemeal polypectomy Patient Active Problem List Diagnosis Code Atherosclerotic heart disease of [place] coronary artery without angina pectoris I25.10 EXAM: HEENT: Airway examined, oropharynx clear Mallampati Score: II (soft palate, uvula, fauces visible) LUNGS: Clear to auscultation HEART: Regular rate and rhythm, normal S1, S2 ABDOMEN: Normal bowel sounds, soft, non tender, non distended, A/P Proceed with the planned endoscopic procedure. ASA 2 - Patient with mild systemic disease with no functional limitations Sedation Plan: moderate (conscious sedation) Risks and benefits of the procedure explained to the patient. Consent signed. documented in this encounter Plan of Treatment Not on file documented as of this encounter Procedures Procedure Name Priority Date/Time Associated Diagnosis Comments SURGICAL PATHOLOGY REPORT Routine 02/19/2023 2:32 PM EDT SPECIMEN TO PATHOLOGY Routine 02/19/2023 2:32 PM EDT SPECIMEN TO PATHOLOGY Routine 02/19/2023 2:32 PM EDT Colonoscopy, Gauri Zavala ([id number]) 02/19/2023 1:54 PM EDT 6 month COLONOSCOPY Routine 02/19/2023 1:47 PM EDT documented in this encounter Results * Surgical Pathology Report (02/19/2023 2:32 PM EDT) Surgical Pathology Report [id number] ? Location: 4T; EA12; A The signing pathologist has (i) examined the relevant preparation(s) for the specimen(s) and (ii) rendered or confirmed the diagnosis(es). . ?Surgical Pathology DIAGNOSIS A - Ascending colon polyps 2mm, 1mm, resection: - ??Fragments of tubular adenoma. B - Rectal polyp 1mm, resection: - ??Hyperplastic polyp. CR-PX Electronically signed by: ?Per LUTHER, Arpit Verified: ??03/01/2023 16:31 ??Pathologist Performed at: ??-[facility] [place]ology, [place] [address] Excavation Laborer: Stefan Min MD, FCAP, ??CLIA Certificate: [id number] SPECIMEN(S) SUBMITTED A - ascending colon polyps 2mm, 1mm, resection (2) B - Rectal polyp 1mm, resection (1) CLINICAL INFORMATION 72-year-old female, colonoscopy, f/u piecemeal polypectomy SPECIMEN PROCESSING A - Labeled/Fixativ e: Ascending colon polyps 2 mm, formalin. Quantity/Size: Three, ranging from 0.4-0.6 cm. Tissue Description: Soft, locke-pink tissues. Sections/Proces sing: Submitted in toto ??in 1 cassette labeled A1. B - Labeled/Fixativ e: Rectal polyp 1 mm, formalin. Quantity/Size: Single, 0.7 cm. Tissue Description: Soft, locke-pink tissue. Sections/Proces sing: Submitted in toto ??in 1 cassette labeled B1. ??sdy [facility] 02/19/2023 2:32 PM EDT Elin Carlson MD PATHOLOGY/CYTOLOGY O RDERABLES [facility] [place] [address] * Specimen to Pathology (02/19/2023 2:32 PM EDT) AP Specimen 02/19/2023 2:32 PM EDT 02/19/2023 2:32 PM EDT Narrative [facility] - 02/19/2023 2:32 PM EDT Specimen requisition ordered. ??Separate Pathology report to follow Elin Carlson MD PATHOLOGY/CYTOLOGY O MEENU Performing Organization Address [facility] [place] [address] * Specimen to Pathology (02/19/2023 2:32 PM EDT) AP Specimen 02/19/2023 2:32 PM EDT 02/19/2023 2:32 PM EDT Narrative [facility] - 02/19/2023 2:32 PM EDT Specimen requisition ordered. ??Separate Pathology report to follow Elin Carlson MD PATHOLOGY/CYTOLOGY Asad CORRIGAN Performing Organization Address [facility] [place] [address] * COLONOSCOPY (02/19/2023 1:47 PM EDT) COLONOSCOPY [facility] Endoscopy Procedure Date: 02/19/2023 1:47 PM ? Patient Name: Cookie Salgado ? Date of : 1950 ? Age: 72 ? Order #: [id number] ? Instrument Name: [id number] ? Procedure: ? Colonoscopy Indications: ? Follow-up [...] ? was evaluated using the BBPS ? ([place] Bowel Preparation Scale) ? with scores of: [...] Procedure Code(s): ? --- Professional --- ? 45437, Colonoscopy, flexible; with ? removal of tumor(s), polyp(s), or ? other lesion(s) by snare technique CPT copyright 2021 [employer]. All rights reserved. The codes documented in this report are preliminary and upon security installation sales technician review may be revised to meet current compliance requirements. Attending Participation: ? I personally performed the entire procedure. ? Elin Carlson MD _ Elin Carlson MD 02/19/2023 2:36:53 PM This report has been signed electronically. Number of Addenda: 0 Note Initiated On: 02/19/2023 1:47 PM PROVATION 02/19/2023 1:47 PM EDT Nicolasa Prince [employer]DERABLES [employer] documented in this encounter Visit Diagnoses Not on filedocumented in this encounter Active and Recently Administered Medications Times are shown in EDT. PRN Medication Order 02/17/2023 02/18/2023 02/19/2023 fentaNYL (pf) (50 mcg/mL) multi-dose injection (CANCELED) PRN, Starting on Wed02/19/23 at 1358, Until Wed02/19/23 at 1729, Intra-Operative (Intra-Procedure), Routine 1358 (Given - Provid er: Damon Archer RN)1401 (Given - Provider: Damon Archer RN)1404 (Given - Provider: Damon Archer RN)1409 (Given - Provider: Damon Archer RN) midazolam (pf) (Versed) (1 mg/mL) multi-dose injection (CANCELED) PRN, Starting on Wed02/19/23 at 1358, Until Wed02/19/23 at 1729, Intra-Operative (Intra-Procedure), Routine 1358 (Given - Provid er: Damon Archer RN)1401 (Given - Provider: Damon Archer RN)1404 (Given - Provider: Damon Archer RN)1409 (Given - Provider: Damon Archer RN) documented in this encounter Care Teams Bee Farmer Relationship Specialty Start Date End Date Nicolasa Prince, WOOD CARVER [address] [place] [id number] PCP - General Family Medicine 01/08/21 documented as of this encounter
--- OUTSIDE RECORDS SUMMARY | 2023-11-16 15:09 | XMS_ITS | Encounter Summary ---
Author Organization [facility] Address [facility] [place] [address] Care Team Providers Care Rn Forensic Name Role Phone Nicolasa Prince APRN Primary Care Provider +1- [phone] Encounter Details Date Type Department Care Team (Late st Contact Info) Description 10/14/2021 External [place] [address] Irene Lara MD [facility] [place] [address] Social History Tobacco Use Types Packs/Day Years Used Date Smoking Tobacco: Former Smokeless Tobacco: Never Sex and Gender Information Value Date Recorded Sex Assigned at Not on file Gender Identity Not on file Sexual Orientation Not on file documented as of this encounter Plan of Treatment Not on file documented as of this encounter Procedures Procedure Name Priority Date/Time Associated Diagnosis Comments GENERAL CHEMISTERY EXTERNAL LAB PANEL Routine 09/25/2021 documented in this encounter Results * General Chemistery External Lab Panel (09/25/2021) Albumin 3.7 AST 37 ALT 37 Alk Phos 85 Total Bilirubin 0.8 Total Protein 7.5 Historical Provider POINT OF CARE PAMELA T ORDERABLES documented in this encounter Visit Diagnoses Not on filedocumented in this encounter Care Teams Rn Forensic Relationship Specialty Start Date End Date Nicolasa Prince APRN [address] [place], [place] [address] PCP - General Family Medicine 01/08/21 documented as of this encounter
--- OUTSIDE RECORDS SUMMARY | 2023-11-16 15:09 | XMS_ITS | Encounter Summary ---
[facility] [place] [address] Care Team Providers Care Patch Setter Name Role Phone Nicolasa Prince APRN Primary Care Provider +1- [phone] Encounter Details Date Type Department Care Team (Latest Contact Info) Description 09/30/2022 Travel Social History Tobacco Use Types Packs/Day [...] on filedocumented in this encounter Care Teams Patch Setter Relationship Specialty Start Date End Date Nicolasa Prince APRN [address] [place] [address] PCP - General Family Medicine 01/08/21 documented as of this encounter
--- OUTSIDE RECORDS SUMMARY | 2023-11-16 15:09 | XMS_ITS | Encounter Summary ---
Author Organization Formerly [facility] [place] [address] Care Team Providers Care Electrician Maintenance Name Role Phone Nicolasa Prince YULIA Primary Care Provider [phone] Reason for Visit * Auth/Cert (Routine) Specialty Diagnoses / Procedures Referred By Minh t Referred To Contact Diagnoses Encounter for screening for malignant neoplasm of colon Esophageal varices cirrhosis screen for varices, screening colonoscopy Procedures PRO UPPER GI ENDOSCOPY, DIAGNOSTIC PRO COLONOSCOPY, DIAGNOSTIC PRO UP GI ENDOSCOPY, REMV TUMOR, SNARE PRO UPPER GI ENDOSCOPY, BIOPSY PRO COLONOSCOPY, BIOPSY PRO COLONOSCOPY, REMV LESN, SNARE PRO ANESTH, LWR INTESTINE, SCREENING COLONOSCOPY PRO ANESTH, UGI ENDOSCOPY NOS EGD, UPPER GI ENDOSCOPY COLONOSCOPY, DIAGNOSTIC Elin Carlson MD [facility] [place] [address] [facility] [place] Referral ID Status Reason Start Date Expiration Date Visits Re quested Visits Authorized [id number] 1 1 Encounter Details Date Type Department Care Team (Latest Contact Info) Description 08/07/2022 12:50 PM EDT - 08/07/2022 4:14 PM EDT Hospital Encounter Gastroenterology at [facility] [place] [address] Elin Carlson MD [facility] [place] [address] Discharge Disposition: Home Social History Tobacco Use Types Packs/Day Years Used Date Smoking Tobacco: Former Smokeless Tobacco: Never Tobacco Cessation:Counseling Given: Not Answered Alcohol Use Standard Drinks/Week Comments Yes 3 (1 standard drink = 0.6 oz pur e alcohol) Sex and Gender Information Value Date Recorded Sex Assigned at Not on file Gender Identity Not on file Sexual Orientation Not on file documented as of this encounter Last Filed Vital Signs Vital Sign Reading Time Taken Comments Blood Pressure 130/60 08/07/2022 3:50 PM EDT Pulse 71 08/07/2022 3:20 PM EDT Temperature 36.5 ??C (97.7 ??F) 08/07/2022 1:44 PM ED T Respiratory Rate 15 08/07/2022 3:50 PM EDT Oxygen Saturation 99% 08/07/2022 3:50 PM EDT Inhaled Oxygen Concentration - - Weight 98.4 kg (217 lb) 08/07/2022 1:44 PM EDT Height 170.2 cm (5' 7) 08/07/2022 1:44 PM EDT Body Mass Index 33.99 08/07/2022 1:44 PM EDT documented in this encounter Discharge Instructions * Discharge Instructions* Emmy Camarillo RN - 08/07/2022 3:29 PM EDT Upper Endoscopy (EGD) and Colonoscopy: What to Expect at Home Your Recovery After you have an EGD and colonoscopy, you will stay at the clinic for 1 to 2 hours until the medicines wear off. Then you can go home. But you will need to arrange for a ride. Your doctor will tell you when you can eat and do your other usual activities. Your doctor will talk to you about when you will need your next colonoscopy. Your doctor can help you decide how often you need to be checked. This will depend on the results of your test and your risk for colorectal cancer. You may have a sore throat for a day or two after the test. After the test, you may be bloated or have gas pains. You may need to pass gas. If a biopsy was done or a polyp was removed, you may have streaks of blood in your stool (feces) for a few days. Problems such as heavy rectal bleeding may notoccur until several weeks after the test. This isn't common. But it can happen after polyps are mariely deepti. This care sheet gives you a general [...] colon prep. Do not drink alcohol. Medicines If you have a sore throat the day after the test, use an oget-tcu-zlkolhg spray or lozenges to numbyour throat. Warm salt water gargles can also help the discomfort. Your doctor will tell you if and [...] (Advil, Motrin) and naproxen (Aleve). Other instructions for patients who received sedation: You may have received medications during the procedure which effect your judgement and reaction time. For your safety, do not drive or [...] fully understand what you are agreeing to. Be careful on stairs and when standing up quickly as you may be unsteady on your feet. IV site: Slight redness or tenderness is normal. You can use a warm compress if you would like. If tenderness and/or redness increase or if foul drainage occurs, please contact your doctor. Please call [phone] before 8pm Mon-Fri with problems, questions, or concerns. If you call after 8pm or on weekends, call the Hospital at [phone] and ask for the Title Supervisor vocational coordinator and the chocolate production machine operator will contact that person for you. When should you call for help? Call 911 anytime you think you may need emergency [...] fever. You cannot pass stools or gas. Your throat still hurts after a day or two. Your throat still hurts after a day or two. Watch closely for changes in your health, and be sure to contact your doctor if you have any problems. Where can you learn more? You can view health information on [facility], your personal patient account. Log in or sign up today. Content Version: 12.2 ?? 2229-1357 [employer]. Care instructions adapted under license by [facility]. If you have questions about a medical condition or this instruction, always ask your healthcare professional. [employer] disclaims any warranty or liability for your use of this information. documented in this encounter Medications at Time of Discharge Medication Sig Dispensed Refills Start Date End Date metoprolol succinate XL (Toprol-XL) 25 mg ER 24 hr tablet Take 25 mg by mouth Daily. 03/01/2019 losartan (Cozaar) 50 mg Tablet Take 2 tablets by mouth daily. 90 tablet 02/10/2022 cholecalciferol, Vitamin D3, 50 mcg (2,000 unit) Capsule Take by mouth. aspirin 325 mg Tablet Take 325 mg by mouth daily. Ursodiol (Bridgette Forte) 500 mg tabletIndications:Autoi mmune hepatitis TAKE 1 TABLET BY MOUTH TWICE DAILY 180 tablet 07/20/2022 10/15/2022 azaTHIOprine (Imuran) 50 mg Tablet Take 1 tablet by mouth daily. 90 tablet 3 02/10/2022 09/28/2023 fenofibrate (TRICOR) 145 mg Tablet Take 1 tablet by mouth daily. 90 tablet 3 07/22/2021 09/15/2022 Jardiance 25 mg Tablet 01/22/202109/27 Tradjenta 5 mg Tablet 01/22/20212023 documented as of this encounter H&P Notes * Elin Carlson MD - 08/07/2022 2:20 PM EDT Patient Name: Cookie Salgado Patient Age: 71 y.o. Birthdate: 1950 Admit date: 08/07/2022 Attending Physician: Elin Carlson MD Gastroenterology and Hepatology Pre-Procedure History and Physical Exam Procedure: EGD: Colonoscopy: Indication: Cirrhosis, screen for varices, average risk screening Patient Active Problem List Diagnosis Code ??? Atherosclerotic heart disease of [place] coronary artery without angina pectoris I25.10 EXAM: [...] Procedure Name Priority Date/Time Associated Diagnosis Comments SPECIMEN TO PATHOLOGY Routine 08/07/2022 3:25 PM EDT SPECIMEN TO PATHOLOGY Routine 08/07/2022 3:25 PM EDT SURGICAL PATHOLOGY REPORT Routine 08/07/2022 2:57 PM EDT Colonoscopy, Flex, W/Control, Bleeding ([id number]) 08/07/2022 2:21 PM EDT Hepatic cirrhosis, unspecified hepatic cirrhosis type, unspecified whether ascites present Screening for colon cancer Colonoscpy, Flex, W/Dir Submuc Inject ([id number]) 08/07/2022 2:21 PM EDT Hepatic cirrhosis, unspecified hepatic cirrhosis type, unspecified whether ascites present Screening for colon cancer Colonoscopy, Remv [place], Snare ([id number]) 08/07/2022 2:21 PM EDT Hepatic cirrhosis, unspecified hepatic cirrhosis type, unspecified whether ascites present Screening for colon cancer Upper GI Endoscopy, Diagnostic ([id number]) 08/07/2022 2:21 PM EDT Hepatic cirrhosis, unspecified hepatic cirrhosis type, unspecified whether ascites present Screening for colon cancer UPPER GI ENDOSCOPY Routine 08/07/2022 2: 10 PM EDT COLONOSCOPY Routine 08/07/2022 2:10 PM EDT documented in this encounter Results * Specimen to Pathology (08/07/2022 3:25 PM EDT) AP Specimen 08/07/2022 3:25 PM EDT 08/07/2022 3:25 PM EDT Narrative [facility] - 08/07/2022 3:25 PM EDT Specimen requisition ordered. ??Separate Pathology report to follow Elin Carlson MD PATHOLOGY/CYTOLOGY O MEENU Performing Organization Address [facility] Co de Phone Number [facility] [place] [address] * Specimen to Pathology (08/07/2022 3:25 PM EDT) AP Specimen 08/07/2022 3:25 PM EDT 08/07/2022 3:25 PM EDT Narrative [facility] - 08/07/2022 3:25 PM EDT Specimen requisition ordered. ??Separate Pathology report to follow Elin Carlson MD PATHOLOGY/CYTOLOGY O RDMILLIE Performing Organization Address [facility] [place] [place] [address] * Surgical Pathology Report (08/07/2022 2:57 PM EDT) Pathologist [facility] Surgical Pathology Report [id number] ? Location: 4T; EA12; A The signing pathologist has (i) examined the relevant preparation(s) for the specimen(s) and (ii) rendered or confirmed the diagnosis(es). . ?Surgical Pathology DIAGNOSIS A - Transverse colon polyp, excision (Multiple): - ??Tubular adenoma. B - Descending colon polyp, excision (Multiple): - ??Fragments of sessile serrated polyp/adenoma. CR-PX Electronically signed by: ?Per LUTHER, Arpit Verified: ??08/26/2022 16:10 ??Pathologist Performed at: ??-[facility] Dept. of Pathology, [place] [address] Stitching Department Supervisor: Stefan Min MD, FCAP, ??CLIA Certificate: [id number] SPECIMEN(S) SUBMITTED A - transverse colon polyp, excision (Multiple) B - descending colon polyp, excision (Multiple) CLINICAL INFORMATION 71-year-old F, screening SPECIMEN PROCESSING A - Labeled/Fixativ e: Transverse colon polyp, formalin. Quantity/Size: Single, 0.5 x 0.2 cm. Tissue Description: Non-oriented, locke, translucent strip of mucosa with an eccentric/ terminal 0.1 cm red polypoid focus. Sections/Proces sing: Submitted en toto ??in 1 cassette labeled A1. B - Labeled/Fixativ e: Descending colon polyp, formalin. Quantity/Size: Multiple, ranging 0.2-0.7 cm. Tissue Description: Irregular, partially flattened pink-locke, translucent mucosal tissues. Sections/Proces sing: Submitted en toto ??in 2 cassettes labeled B1-B2. ??shb [facility] 08/07/2022 2:57 PM EDT Elin Carlson MD PATHOLOGY/CYTOLOGY [place] [address] * UPPER GI ENDOSCOPY (08/07/2022 2:10 PM EDT) Pathologist [facility] UPPER GI ENDOSCOPY [facility] Endoscopy Procedure Date: 08/07/2022 2:10 PM ? Patient Name: Cookie Salgado ? Date of : 1950 ? Age: 71 ? Order #: [id number] ? Instrument Name: [id number] ? Procedure: ? Upper GI endoscopy Indications: ? Cirrhosis rule out esophageal ? varices Providers: ? Elin Carlson MD, Leticia Bolton ? Damon Ca MD: ?Nicolasa H. Chute Medicines: ? Midazolam 4 mg IV, Fentanyl 150 ? micrograms IV, Benzocaine spray Complications: ? No immediate complications. Procedure: ? [...] cancer, and adverse medication ? reactions. The Endoscope was ? introduced through the mouth, and ? advanced to the second part of ? duodenum The upper GI endoscopy was ? accomplished without difficulty. ? The patient tolerated the procedure ? well. ? Findings: ? Esophagogastric landmarks were identified: the Z-line ? was found at 40 cm, the upper extent of the gastric ? folds was found at 40 cm and the site of hiatal ? narrowing was found at 40 cm from the incisors. ? The examined esophagus was normal. ? The examined esophagus was normal. ? There is no endoscopic evidence of varices in the ? entire esophagus. ? The entire examined stomach was normal. ? The examined duodenum was normal. ? Moderate Sedation: ? I was present during the intraservice time as ? documented by the sedation RN. Impression: ?- Esophagogastric landmarks ? identified. ? - Normal esophagus. ? - Normal esophagus. ? - Normal stomach. ? - Normal examined duodenum. ? - No specimens collected. Recommendation: ?- Repeat upper endoscopy in 2 years ? for screening purposes. ? - Return to referring physician. ? Attending Participation: ? I personally performed the entire procedure. ? Elin Carlson MD Elin Carlson MD 08/07/2022 2:39:13 PM This report has been signed electronically. Number of Addenda: 0 Note Initiated On: 08/07/2022 2:10 PM PROVATION 08/07/2022 2:10 PM EDT Nicolasa Prince LINUX NETWORK ENGINEER GENERAL SURGICAL O RDERABLES PROVATION * COLONOSCOPY (08/07/2022 2:10 PM EDT) COLONOSCOPY [facility] Endoscopy Procedure Date: 08/07/2022 2:10 PM ? Patient Name: Cookie Salgado ? Date of : 1950 ? Age: 71 ? Order #: [id number] ? Instrument Name: [id number] ? Procedure: ? Colonoscopy Indications: ? Screening for colorectal malignant ? neoplasm Providers: ? Elin Carlson MD, Leticia Bolton ? Damon Ca MD: ?Nicolasa H. Suresh Medicines: ? Midazolam 2 mg IV, Fentanyl 50 ? micrograms IV Complications: ? No immediate [...] ? was evaluated using the BBPS ? ([place] Bowel Preparation Scale) ? with scores of: [...] were ? photographed. Withdrawal time was ? 29 minutes. ? Findings: ? The perianal and digital rectal examinations were ? normal. ? The terminal ileum appeared normal. ? A 2 mm polyp was found in the transverse colon. The ? polyp was sessile. The polyp was removed with a cold ? snare. Resection and retrieval were complete. ? Estimated blood loss: none. ? A 20 mm polyp was found in the descending colon. The ? polyp was flat. Preparations were made for mucosal ? resection. Demarcation of the lesion was performed to ? clearly identify boundaries of the lesion. Eleview ? was injected to raise the lesion. Snare mucosal ? resection was performed. Resection and retrieval were ? complete. To prevent bleeding after the polypectomy, ? five hemostatic clips were successfully placed. There ? was no bleeding at the end of the procedure. Area was ? tattooed with an injection of Spot (carbon black). ? The retroflexed view of the distal rectum and anal ? verge was normal and showed no anal or rectal ? abnormalities. ? Moderate Sedation: ? I was present during the intraservice time as ? documented by the sedation RN. Impression: ?- The examined portion of the ileum ? was normal. ? - One 2 mm polyp in the transverse ? colon, removed with a cold snare. ? Resected and retrieved. ? - One 20 mm polyp in the descending ? colon, removed with mucosal ? resection. Resected and retrieved. ? Clips were placed. Tattooed. ? - The distal rectum and anal verge ? are normal on retroflexion view. ? - Mucosal resection was performed. ? Resection and retrieval were ? complete. Recommendation: ?- Await pathology results. ? - Repeat colonoscopy in 6 months ? for surveillance after piecemeal ? polypectomy. ? - Return to referring physician. ? Procedure Code(s): ? --- Professional --- ? 36964, Colonoscopy, flexible; with ? endoscopic mucosal resection ? 72605, 59, Colonoscopy, flexible; ? with removal of tumor(s), polyp(s), ? or other lesion(s) by snare ? technique CPT copyright 2021 [employer]. All rights reserved. The codes documented in this report are preliminary and upon it admin review may be revised to meet current compliance requirements. Attending Participation: ? I personally performed the entire procedure. ? Elin Carlson MD _ Elin Carlson MD 08/07/2022 3:40:14 PM This report has been signed electronically. Number of Addenda: 0 Note Initiated On: 08/07/2022 2:10 PM PROVATION 08/07/2022 2:10 PM EDT Nicolasa Prince APRN GENERAL SURGICAL O RDERABLES PROVATION documented in this encounter Visit Diagnoses Not on filedocumented in this encounter Administered Medications Inactive Administered Medications - up to 3 most recent administrations Medication Order MAR Action Action Date Dose Rate Site lactated ringers infusion 100 mL/hr, Intravenous, CONTINUOUS, Starting on Wed08/07/22 at 1400, Until Wed08/07/22 at 1558, Endoscopy (Day of Procedure) New Bag 08/07/2022 1:50 PM EDT 100 mL/hr 100 mL/hr documented in this encounter Active and Recently Administered Medications Times are shown in EDT. Continuous Medication Order 08/05/2022 08/06/2022 08/07/2022 lactated ringers infusion (CANCELED) 100 mL/hr, Intravenous, CONTINUOUS, Starting on Wed08/07/22 at 1400, Until Wed08/07/22 at 1558, Endoscopy (Day of Procedure) 1350 (New Bag - Prov ider: Priyanka Becerra RN) PRN Medication Order 08/05/2022 08/06/2022 08/07/2022 benzocaine (Hurricane One) 20% spray (restricted to macy-procedural use) (CANCELED) ONCE PRN, Starting on Wed08/07/22 at 1428, Until Wed08/07/22 at 1814, Intra-Operative (Intra-Procedure) 1428 (Given - Provid er: Leticia Ca RN) fentaNYL (pf) (50 mcg/mL) multi-dose injection (CANCELED) ONCE PRN, Starting on Wed08/07/22 at 1424, Until Wed08/07/22 at 1814, Intra-Operative (Intra-Procedure), Routine 1424 (Given - Provid er: Leticia Ca RN)1427 (Given - Provider: Leticia Ca RN)1431 (Given - Provider: Leticia Ca RN)1442 (Given - Provider: Leticia Ca RN) midazolam (pf) (Versed) (1 mg/mL) multi-dose injection (CANCELED) ONCE PRN, Starting on Wed08/07/22 at 1424, Until Wed08/07/22 at 1814, Intra-Operative (Intra-Procedure), Routine 1424 (Given - Provid er: Leticia Ca RN)1427 (Given - Provider: Leticia Ca RN)1431 (Given - Provider: Leticia Ca RN)1442 (Given - Provider: Leticia Ca RN)1450 (Given - Provider: Leticia Ca RN) documented in this encounter Care Teams Electrician Maintenance Relationship Specialty Start Date End Date Nicolasa Prince, LINUX NETWORK ENGINEER [address] [place] [id number] PCP - General Family Medicine 01/08/21 documented as of this encounter
--- OUTSIDE RECORDS SUMMARY | 2023-11-16 15:09 | XMS_ITS | Encounter Summary ---
Author Organization [facility] [place] [address] Care Team Providers Care Paleologist Name Role Phone Nicolasa Prince APRN Primary Care Provider [phone]- [phone] Encounter Details Date Type Department Care Team (Late st Contact Info) Description 02/10/2022 11:30 AM EDT Office [place] [address] Irene Lamar MD [facility] [place] [address] Autoimmune hepatitis; Primary biliary cholangitis; Hepatic cirrhosis, unspecified hepatic cirrhosis type, unspecified whether ascites present; Screening for colon cancer Social History Tobacco Use Types Packs/Day Years Used Date Smoking Tobacco: Former Smokeless Tobacco: Never Sex and Gender Information Value Date Recorded Sex Assigned at Not on file Gender Identity Not on file Sexual Orientation Not on file documented as of this encounter Last Filed Vital Signs Vital Sign Reading Time Taken Comments Blood Pressure 141/66 02/10/2022 11:24 AM EDT Pulse 85 02/10/2022 11:24 AM EDT Temperature - - Respiratory Rate - - Oxygen Saturation - - Inhaled Oxygen Concentration - - Weight 99.3 kg (219 lb) 02/10/2022 11:24 AM EDT Height 170.2 cm (5' 7) 02/10/2022 11:24 AM EDT Body Mass Index 34.3 02/10/2022 11:24 AM EDT documented in this encounter Progress Notes * Irene Lamar MD - 02/10/2022 11:30 AM EDT Gastroenterology and Hepatology Follow Up Note Patient: Prema Salgado : 1950 Provider: Irene Lamar MD Problem List: PBC/ AIH - 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 Stage 2 fibrosis at that time. AMA negative, HUGO 1:640 - Treated with Ursodiol initally - Repeat liver biopsy 03/2013 (for persistent liver test abnormalities- alk phos 200-300, AST/ALT 100's)) showed stage III fibrosis and PBC and AIH overlap. See end of this note for full report ?- CHRONIC BILIARY DISEASE WITH PORTAL INFLAMMATION, CHOLANGITIS AND INTERFACE HEPATITIS ? - BRIDGING FIBROSIS (STAGE 3 OF 4) , no steatosis - She was started on Prednisone and Azathioprine, quickly tapered off of Prednisone due to side effects and minimal improvement of transaminases, continued on AZA 75mg. -Fenofibrate added 07/2014 for persistent alk phos elevation- LFT's normalized soon after this ?? - EGD 09/01/2018: no varices, erosive gastristis. Recommendation to repeat in 3 years. ?? - Transjugular liver biopsy 03/07/2013: 1. Transvenous (transjugular) liver biopsy with samples sent to surgical pathology for further analysis. 2. The indirectly measured portosystemic gradients were 5 mm Hg to the hepatic vein, 4 mm Hg to thehepatic inferior vena cava, and??8 mm Hg to the right atrium, which are within normal limits ?? Liver tests normal since at approximately 2017 ?? Other issues: HTN Diabetes CAD- s/p coronary stent 2004 Interval History: Prema Salgado is coming in for follow up for cirrhosis related to PBC/AIH. 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 Her records were extensively [...] normal since approximately 2016. She moved to [place] in 2019.. Living with her two brothers. She is generally feeling well. Current Outpatient Medications Medication Sig Dispense Refill ??? Ursodiol (ACTIGALL) 500 mg Tablet Take 1 tablet by mouth 2 times daily. 180 tablet 3 ??? fenofibrate (TRICOR) 145 mg Tablet Take 1 tablet by mouth daily. 90 tablet 3 ??? cholecalciferol, Vitamin D3, 50 mcg (2,000 unit) Capsule Take by mouth. ??? Jardiance 25 mg Tablet ??? Tradjenta 5 mg Tablet ??? losartan (Cozaar) 50 mg Tablet Take 2 tablets by mouth daily. 90 tablet 0 ??? azaTHIOprine (Imuran) 50 mg Tablet Take 1 tablet by mouth daily. 90 tablet 3 ??? aspirin 325 mg Tablet Take 325 mg by mouth daily. No current facility-administered medications for this visit. Vitals: 02/10/22 1124 Weight: 99.3 kg (219 lb) Height: 170.2 cm (5' 7) Body mass index is 34.3 kg/m??. Fibroscan Results: Median kPa: 10.5 Mean IQR: 25% (goal is <30 %) Number of valid measurements: 10 (at least 10 required) Number of invalid measurements: 25 Predicted fibrosis stage: F3 CAP (dB/m): 340 Estimated steatosis grade:3 /3 % hepatocytes affected: > 66% Exam: Looks well Recent Results (from the past 24 hour(s)) Hepatic Function Panel Result Value Ref Range Total Protein 7.4 6.1 - 8.0 g/dL Albumin 4.2 3.2 - 5.2 g/dL AST 21 0 - 30 unit/L ALT 17 0 - 30 unit/L Total Bilirubin 0.6 0.2 - 1.3 mg/dL Bili, Direct 0.2 0.0 - 0.3 mg/dL Hemoglobin A1c Result Value Ref Range Hemoglobin A1C 7.0 (H) 4.3 - 5.6 % Est Avg Gluc 155 mg/dL Hemogram Result Value Ref Range WBC 4.2 4.0 - 9.5 x10(3)/mcL RBC 5.02 4.00 - 5.21 x10(6)/mcL Hemoglobin 15.8 (H) 11.7 - 15.5 g/dL Hematocrit 45.7 35.7 - 45.8 % MCV 91.0 82.6 - 94.4 fL MCH 31.5 27.1 - 32.0 pg MCHC 34.6 31.7 - 35.0 g/dL Platelets 118 (L) 145 - 357 x10(3)/mcL RDWSD 43.9 37.0 - 46.0 fL RDWCV 13.1 11.5 - 14.1 % MPV 10.4 7.6 - 12.9 fL nRBC % Auto 0.0 % nRBC Abs Auto 0.000 0.000 - 0.000 x10(3)/mcL Differential, Automated Result Value Ref Range Neutrophils % 70.8 % Neutr Abs (ANC) 2.95 1.70 - 6.10 x10(3)/mcL Lymphocytes % 18.2 % Lymphocytes Abs 0.8 (L) 0.9 - 3.2 x10(3)/mcL Monocytes % 9.1 % Monocyte Abs 0.4 0.3 - 0.9 x10(3)/mcL Eosinophils % 1.2 % Eosinophils Abs 0.0 0.0 - 0.4 x10(3)/mcL Basophils % 0.5 % Basophils Abs 0.0 0.0 - 0.1 x10(3)/mcL Immature Gran % 0.20 % Sydnee Gran Abs 0.01 0.00 - 0.04 x10(3)/mcL 07/3021 MRI : IMPRESSION No hepatic lesions. Nodular capsular contour with heterogeneous signal pattern, compatible cirrhotic change. US today: 1. Hepatomegaly with diffuse markedly heterogeneous liver parenchyma, consistent with known cirrhosis. Sonographic diagnostic sensitivity is limited by the heterogeneity of the hepatic parenchyma. Within this limitation, no visualized focal hepatic lesion. 2. No intra-abdominal ascites. 3. No cholelithiasis or biliary ductal dilatation. Assessment and Plan: 70-year-old woman with history [...] ursodiol 1000 mg/day, fenofibrate 145mg/day for PBC AZA to 50mg/day for now, will consider tapering further at next visit LFT's q 3 months Needs EGD for varices screening given plts <150- will arrange, need to find out if she is due for colonoscopy, records suggest last one was 2009 GIF in six months, with US prior for HCC screening, may time this with EGD/[place] Time spent with patient: 40 min Time spent reviewing records, documentin min Irene Lamar MD Section of Gastroenterology & Hepatology [address] [place] [address] Cc: Nicolasa Prince APRN SURGICAL PATHOLOGY REPORT ? Patient: PREMA SALGADO ?MR #: [id number] ?Submitted by: Elie Moreno MD FINAL DIAGNOSIS LIVER, RIGHT LOBE, BIOPSY: ?- CHRONIC BILIARY DISEASE WITH PORTAL INFLAMMATION, CHOLANGITIS AND INTERFACE HEPATITIS ? - BRIDGING FIBROSIS (STAGE 3 OF 4) MICROSCOPIC DESCRIPTION: The biopsy consists of two cores of inflamed liver parenchyma with approximately 10 fibrotic portaltracts and fibrous septa. ??The trichrome and reticulin stains highlight bridging fibrosis throughout; no definite regenerative nodules are identified. ?? The portal tracts and septa show chronic??inflammation, including prominent plasma cells. ??There is associated lymphocytic cholangitis and bile ductular reaction (CK19 and CK7 immunostains examined); no definite ductopenia is present as the ductules cannot be definitively distinguished from umatilla tribe bile ducts. ??There is patchy periportal hepatocellular feathery degeneration as well interface hepatitis. No definite florid duct lesions or granulomas are seen. ?? There is lobular lymphohistiocytic inflammation and scattered acidophil bodies. ??DPAS stain shows finely granular hyaline globules inscattered hepatocytes. ??The copper stain is positive in numerous periseptal hepatocytes. ??There is no significant steatosis, Minerva's hyaline or ground glass cytoplasmic changes and the iron stain is??negative for hemosiderosis. INTERPRETATION: Per report, the patient has a history of AMA-negative primary biliary cirrhosis (PBC) along with persistently elevated alkaline phosphatase and ALT/AST. ??The overall features are consistent persistent involvement by PBC. ??Furthermore, given the portal plasma cell infiltrates and lobular inflammation, a component of autoimmune hepatitis cannot be excluded. ??Correlation with clinical and serologic findings is needed. The patient had a prior liver biopsy reviewed at [facility] (see accession number [id number]), although the slides are not available for direct comparison at this time. ??However, based on the microscopic description, it appears that fibrosis may have progressed. documented in this encounter Procedure Notes * Irene Lamar MD - 02/10/2022 11:30 AM EDTAssociated Order(s): FIBROSCAN Procedure(s): FIBROSCAN Pre-Procedure Diagnose(s): Autoimmune hepatitis; Primary biliary cholangitis [facility] Liver Fibrosis Assessment Report Indication: AIH/PBC, assess for portal htn Performed by: HOWARD Rockwell Procedure: Vibration Controlled Transient Elastography (VCTE) or Fibroscan [place] Protocol: Patient's identity, procedure and site were verified, confirmatory pause performed. Discussed procedure including risks and potential complications. Questions answered. Patient verbalizes understanding and wishes to proceed with Fibroscan assessment. Patient was placed in the supine position with right arm in maximum abduction to allow optimal exposure of right lateral abdomen. Patient was briefly assessed. Testing was performed in the mid-axillary location. 50Hz Shear Wave pulses were applied and the resulting Shear Wave and Propagation Speed was detected with a 3.5MHz ultrasonic signal, using the Fibroscan probe. Skin to liver capsule distance and liver parenchyma were accessed during the entire examination with the Fibroscan probe. Patient was instructed to breathe normally and abstain from sudden movements during the procedure. At least ten Sheer Waves were produced; individual measurements of each Shear Wave were calculated. Patient tolerated the procedure well with no complications. Fibroscan Results: Median kPa: 10.5 Mean IQR: 25% (goal is <30 %) Number of valid measurements: 10 (at least 10 required) Number of invalid measurements: 25 Predicted fibrosis stage: F3 CAP (dB/m): 340 Estimated steatosis grade:3 /3 % hepatocytes affected: > 66% Interpretation: Based on this Fibroscan result, history, clinical examination and review of laboratory and radiological data, this patient likely has stage 3 liver fibrosis. documented in this encounter Plan of Treatment Not on file documented as of this encounter Procedures Procedure Name Priority Date/Time Associated Diagnosis Comments [id number] Routine 02/10/2022 11:30 AM EDT Autoimmune hepatitis Primary biliary cholangitis documented in this encounter Results * US Abdomen Limited Hepatology Protocol (08/17/2022 10:54 AM EDT) Anatomical Region Laterality Modality Abdomen Ultrasound 08/17/2022 10:5 3 AM EDT Impressions 08/17/2022 2:12 PM EDT 1. ??Similar hepatomegaly with extremely coarse heterogeneous echotexture and capsular nodularity. 2. ??No large focal hepatic lesion, however a small lesion would be difficult to exclude sonographically. 3. ??Main portal vein is patent with hepatopetal flow. 4. ??No ascites. I have personally reviewed the image(s) and the resident's interpretation and agree with the findings, Kashmir Lindsay MD at 08/17/2022 2:04 PM Electronically signed by: Kashmir Lindsay MD, [facility] ([phone]), at 08/17/2022 2:04 PM Thank you for letting us participate in the care of this patient. If you are a health care provider and have any questions regarding this report, please contact the number above. For patients who have questions, please contact the health physician assistant primary care that requested your imaging first. ?Kashmir Lindsay, Staff Physician Electronically Signed Final Report ?? 08/17/2022 02:12 pm Narrative 08/17/2022 2:12 PM EDT Abdominal ? (Signed Final 08/17/2022 02:12 pm) PATIENT INFO: ID #: ? [id number] ?: ??[birth year] (71 yrs)(F) Name: ? PREMA SALGADO ?Visit Date: 08/17/2022 10:53 am PERFORMED BY: Attending: ?Neftali LUTHER, Kashmir Resident: ? Milagros LUTHER, James Curtis Performed By: ? Angelina Crystal RDMS Referred By: ?IRENE LAMAR Location: ? [facility] SERVICE(S) PROVIDED: [facility] - Hepatology Protocol - Abdominal ?[id number] Limited Survey Single Organ or Quadrant - [id number] INDICATIONS: cirrhosis, screen for hcc; assess for splenomegaly ------ LIVER: ------ Right Lobe Length: ?? 18.7 ?? cm Echogenicity/Echotexture: ?? Diffusely heterogenous ? parenchyma with capsular ? nodularity Portal Veins: ?Patent GALLBLADDER: Cholelithiasis: ?No stones visualized Wall Thickness: ?2.3 mm Focal Tenderness: ?Negative sonographic Flores's sign BILIARY TRACT: Intrahepatic Ducts: ?? Normal Extrahepatic Ducts: ?? Normal where seen Common Duct Size: ? 2.1 ? mm ------- SPLEEN: ------- Size (cm) ?L: ??11.9 ?AP: ??12.0 ?TV: ??4.3 Vol (ml): ?321.5 FLUID COLLECTIONS: Ascites not present on 4 quadrant evaluation. Procedure Note Kashmir Lindsay MD - 08/17/2022 Abdominal (Signed Final 08/17/2022 02:12 pm) PATIENT INFO: ID #: [id number] : [birth year] (71 yrs)(F) Name: PREMA SALGADO Visit Date: 08/17/2022 10:53 am PERFORMED BY: Attending: Kashmir Lindsay MD Resident: James Linares MD Performed By: Angelina Crystal RDMS Referred By: IRENE LAMAR Location: [facility] SERVICE(S) PROVIDED: [facility] - Hepatology Protocol - Abdominal [id number] Limited Survey Single Organ or Quadrant - [id number] INDICATIONS: cirrhosis, screen for hcc; assess for splenomegaly ------ LIVER: ------ Right Lobe Length: 18.7 cm Echogenicity/Echotexture: Diffusely heterogenous parenchyma with capsular nodularity Portal Veins: Patent GALLBLADDER: Cholelithiasis: No stones visualized Wall Thickness: 2.3 mm Focal Tenderness: Negative sonographic Flores's sign BILIARY TRACT: Intrahepatic Ducts: Normal Extrahepatic Ducts: Normal where seen Common Duct Size: 2.1 mm ------- SPLEEN: ------- Size (cm) L: 11.9 AP: 12.0 TV: 4.3 Vol (ml): 321.5 FLUID COLLECTIONS: Ascites not present on 4 quadrant evaluation. IMPRESSION 1. Similar hepatomegaly with extremely coarse heterogeneous echotexture and capsular nodularity. 2. No large focal hepatic lesion, however a small lesion would be difficult to exclude sonographically. 3. Main portal vein is patent with hepatopetal flow. 4. No ascites. I have personally reviewed the image(s) and the resident's interpretation and agree with the findings, Kashmir Lindsay MD at 08/17/2022 2:04 PM Thank you for letting us participate in the care of this patient. If you are a health care provider and have any questions regarding this report, please contact the number above. For patients who have questions, please contact the health physician assistant primary care that requested your imaging first. Kashmir Lindsay, Staff Physician Electronically Signed Final Report 08/17/2022 02:12 pm Irene Lamar MD IMG US GEN ORDERABLE S * [id number] (02/10/2022 11:30 AM EDT) Narrative Irene Lamar MD - 02/10/2022 11:30 AM EDT Irene Lamar MD ? 02/11/2022 ??8:29 AM [facility] Liver Fibrosis Assessment Report Indication: ??AIH/PBC, assess for portal htn Performed by: ??HOWARD Rockwell Procedure: Vibration Controlled Transient Elastography (VCTE) or Fibroscan [place] Protocol: Patient's identity, procedure and site were verified, confirmatory pause performed. Discussed procedure including risks and potential complications. Questions answered. Patient verbalizes understanding and wishes to proceed with Fibroscan assessment. Patient was placed in the supine position with right arm in maximum abduction to allow optimal exposure of right lateral abdomen. Patient was briefly assessed. Testing was performed in the mid-axillary location. 50Hz Shear Wave pulses were applied and the resulting Shear Wave and Propagation Speed was detected with a 3.5MHz ultrasonic signal, using the Fibroscan probe. Skin to liver capsule distance and liver parenchyma were accessed during the entire examination with the Fibroscan probe. Patient was instructed to breathe normally and abstain from sudden movements during the procedure. At least ten Sheer Waves were produced; individual measurements of each Shear Wave were calculated. Patient tolerated the procedure well with no complications. Fibroscan Results: Median kPa: 10.5 Mean IQR: 25% (goal is <30 %) Number of valid measurements: 10 (at least 10 required) Number of invalid measurements: 25 Predicted fibrosis stage: F3 CAP (dB/m): 340 Estimated steatosis grade:3 /3 % hepatocytes affected: > ??66% Interpretation: Based on this Fibroscan result, history, clinical examination and review of laboratory and radiological data, this patient likely has stage 3 liver fibrosis. Irene Lamar MD PROCEDURE/MINOR SURG ICAL ORDERABLES documented in this encounter Visit Diagnoses Diagnosis Autoimmune hepatitis Primary biliary cholangitis Hepatic cirrhosis, unspecified hepatic cirrhosis type, unspecified whether ascites present Screening for colon cancer Special screening for malignant neoplasms, colon Autoimmune hepatitis Primary biliary cholangitis Hepatic cirrhosis, unspecified hepatic cirrhosis type, unspecified whether ascites present documented in this encounter Care Teams Paleologist Relationship Specialty Start Date End Date Nicolasa Prince APRN [address] [place] [id number] PCP - General Family Medicine 01/08/21 documented as of this encounter
--- OUTSIDE RECORDS SUMMARY | 2023-11-16 15:09 | XMS_ITS | Encounter Summary ---
Author Organization [facility] [place] [address] Care Team Providers Care Facility Planner Name Role Phone Nicolasa Prince APRN Primary Care Provider +1- [phone] Encounter Details Date Type Department Care Team (Late st Contact Info) Description 12/09/2022 Telephone [place] [phone] Mai Larson Social History Tobacco Use Types Packs/Day Years [...] encounter Miscellaneous Notes * Telephone Encounter - Mai Larson - 12/09/2022 2:33 PM EDT Cookie Damian [id number] Diagnosis/Indication: 6 mo Please review patient chart to confirm if previous Endoscopy procedure was performed within system. If yes, take note of Anesthesia type used. If previous procedure found, and with MAC/propofol Anesthesia support was used, schedule this procedure with Anesthesia and skip the Anesthesia portion of questions. If not performed within system, not performed at all, or performed with IVCS, ask Anesthesia questions. SCHEDULING QUESTIONS (ask all patient these questions) Have you ever had a/an Colonoscopy before? Yes: Date 08/07/12 If yes, did you have any problems with the procedure (such as waking up during the procedure, pain or difficulties afterwards, etc.)? No What type of sedation was used: IV Conscious Sedation Do you take any blood thinners or have you been diagnosed with a bleeding disorder that increases your risk of bleeding with procedures? No Do you have a Pacemaker or Defibrillator device? If yes, send pool message to Cardiology with patient information and date or procedure. No Are you a diabetic? If yes, call PCP/managing provider to discuss use of prep and any questions or concerns related to. Yes: Controlled by diet or medication? Both Do you take any iron supplements or vitamins that contain iron? No Do you have a preference regarding the gender of your provider? No ANESTHESIA QUESTIONS (YES to any question, please book with Anesthesia support) Have you ever been diagnosed with Pulmonary Hypertension and/or Congential Heart Disease? No Have you been diagnosed with A-Fib (atrial fibrillation) that is NOT being well controled with medications? No Have you ever had an allergic or adverse reaction to Fentanyl or Versed? No Have you had a problem with sedation or anesthesia? (Waking up during procedure, extreme confusion after, etc.) No Do you have a diagnosis of Obstructive Sleep Apnea that requires the use of a c- pap machine? No Do you use an oxygen tank at home? No Do you use a rescue inhaler more than twice per day? (COPD, severe asthma) No Do you experience breathing problems when you lay flat for a period of time? No Do you take prescription narcotic pain medications, including suboxone or methodone? No SCHEDULING CONFIRMATIONS: Please note any and all parts of your conversation with the patient here. We offer all new patients an opportunity to have an appointment with one of our associate care providers to learn more about your upcoming procedure, ask questions and get answers. These appointmentsare offered via telehealth. Would you be interested in scheduling this appointment? (Only ask if NEW referral patient; skip this question if [facility] provider ordered the procedure.) No Is there any other information or concerns you would like to us to share with your care team in relation to your upcoming scheduled procedure? No You must have a responsible libertarian who will drive you to your procedure, stay on campus for the entire duration of your procedure, and drive you home from your procedure. Who will likely be your otr van cdl truck driver for the procedure? *Please Verify the height and weight, and adjust if height and/or weight have changed* Estimated body mass index is 34.46 kg/m?? as calculated from the following: Height as of 5/31/23: 170.2 cm (5' 7). Weight as of 09/30/22: 99.8 kg (220 lb). Age:72 y.o. documented in this encounter Plan of Treatment Not on file documented as of this encounter Visit Diagnoses Not on filedocumented in this encounter Care Teams Facility Planner Relationship Specialty Start Date End Date Nicolasa Prince APRN [address] [place] [id number] PCP - General Family Medicine 01/08/21 documented as of this encounter
--- OUTSIDE RECORDS SUMMARY | 2023-11-16 15:09 | XMS_ITS | Encounter Summary ---
Author Organization [facility] [place] [address] Care Team Providers Care Superintendent Ammunition Storage Name Role Phone Nicolasa Prince APRN Primary Care Provider +1- [phone] Encounter Details Date Type Department Care Team (Late st Contact Info) Description 09/30/2022 1:00 PM EDT Office [place] [address] Irene Lamar MD [facility] [place] [address] Primary biliary cholangitis; Hepatic cirrhosis, unspecified hepatic [...] Sign Reading Time Taken Comments Blood Pressure 128/72 09/30/2022 12:48 PM EDT Pulse 88 09/30/2022 12:48 PM EDT Temperature - - Respiratory Rate - - Oxygen Saturation 95% 09/30/2022 12:48 PM EDT Inhaled Oxygen Concentration - - Weight 99.8 kg (220 lb) 09/30/2022 12:48 PM EDT Height 170.2 cm (5' 7) 09/30/2022 12:48 PM EDT Body Mass Index 34.46 09/30/2022 12:48 PM EDT documented in this encounter Progress Notes * Irene Lamar MD - 09/30/2022 1:00 PM EDT Gastroenterology and Hepatology Follow [...] this -Fibroscan 01/2022 c/w stage 3 fibrosis ?? -EGD 09/01/2018: no varices, erosive gastristis. Recommendation to repeat in 3 years. -EGD 08/07/22 no varices -Last imaging: US 08/2022 no lesions, hepatomegaly with coarse echotexture and capsular nodularity; 07/3021 MRI : IMPRESSION No hepatic lesions. Nodular capsular contour with heterogeneous signal pattern, compatible cirrhotic change. ?? - Transjugular liver biopsy 03/07/2013: 1. 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 Her original diagnosis was made in [place] and she was managed by a silk screen etcher at [facility]. Her records were extensively reviewed in [...] normal since approximately 2016. She moved to [place] in 2019.. Living with her two brothers. She is generally feeling well. No complaints. Lab Results Component Value Date ALT 29 07/22/2022 AST 28 07/22/2022 ALKPHOS 90 07/22/2022 BILITOT 0.7 07/22/2022 Lab Results Component Value Date WBC 4.2 02/10/2022 HGB 15.8 (H) 02/10/2022 HCT 45.7 02/10/2022 MCV 91.0 02/10/2022 PLATELET 118 (L) 02/10/2022 Current Outpatient Medications Medication Sig Dispense Refill ??? fenofibrate (Tricor) 145 mg tablet TAKE 1 TABLET BY MOUTH DAILY 90 tablet 0 ??? Ursodiol (Bridgette Forte) 500 mg tablet TAKE 1 TABLET BY MOUTH TWICE DAILY 180 tablet 0 ??? losartan (Cozaar) 50 mg Tablet Take 2 tablets by mouth daily. 90 tablet 0 ??? azaTHIOprine (Imuran) 50 mg Tablet Take 1 tablet by mouth daily. 90 tablet 3 ??? cholecalciferol, Vitamin D3, 50 mcg (2,000 unit) Capsule Take by mouth. ??? Jardiance 25 mg Tablet ??? Tradjenta 5 mg Tablet ??? aspirin 325 mg Tablet Take 325 mg by mouth daily. No current facility-administered medications for this visit. Vitals: 09/30/22 1248 BP: 128/72 BP Location ([facility]): Right arm Patient Position: Sitting BP Cuff Sizes: Large Adult (32-43 cm) Pulse: 88 SpO2: 95% Weight: 99.8 kg (220 lb) Height: 170.2 cm (5' 7) Body mass index is 34.46 kg/m??. Exam: Looks well Assessment and Plan: 70-year-old woman with history [...] ursodiol 1000 mg/day, fenofibrate 145mg/day for PBC Cut AZA to 25mg- lft'q monthly. If remain normal will try to stop this in [address] Orders sent to [facility] PCP considering ozempic for diabetes, I have no concerns about this from a liver standpoint and support its use. Time spent with patient: 25 min Time spent reviewing records, documenting- all today : 7 min Irene Lamar MD Section of Gastroenterology & Hepatology [address] [place] [address] Cc: Nicolasa Prince APRN SURGICAL PATHOLOGY REPORT ? Patient: PREMA SALGADO ?MR #: [id number] ?Submitted by: Elie Moreno MD FINAL DIAGNOSIS [...] the ductules cannot be definitively distinguished from minto bile ducts. ??There is patchy periportal hepatocellular [...] had a prior liver biopsy reviewed at [facility] (see accession number [id number]), although the slides are not available for direct comparison at this time. ??However, based on the microscopic description, it appears that fibrosis may have progressed. documented in this encounter Plan of Treatment Not on file documented as of this encounter Results * AFP tumor marker (03/30/2023 10:23 AM EST) AFP 2.8 <=8.3 ng/mL [facility] Comment: This result was generated using a Mendoza Jonathan immunoassay. ??Results obtained from other methods or manufacturers cannot be used interchangeably with this method. Blood 03/30/2023 10:2 3 AM EST 03/30/2023 10:30 AM EST Narrative Resulting Agency Comment Spec In Lab Ireen Lamar MD CHEMISTRY ORDERABLES Performing Organization Address [facility] de Phone Number [facility] [place] [address] * Prothrombin Time (03/30/2023 10:23 AM EST) PT 12.0 9.4 - 12.5 sec [facility] INR 1.1 [facility] Comment: An INR <2.0 indicates adequate procoagulant activity for hemostasis in most patients without underlying bleeding disorders, though the INR may not adequately reflect hemostatic capacity in patients with liver disease and synthetic impairment. The recommended target INR range for therapeutic anticoagulation is 2.0 ? 3.0 for most applications, though lower and higher ranges may be appropriate depending on clinical circumstances. Blood 03/30/2023 10:2 3 AM EST 03/30/2023 10:31 AM EST Narrative Resulting Agency Comment Spec In Lab Irene Lamar MD HEMATOLOGY ORDERABLE S Performing Organization Address [facility] de Phone Number [facility] [place] [address] * (ABNORMAL) Comprehensive metabolic panel (non-fasting) (03/30/2023 10:23 AM EST) Glucose Lvl 110 65 - 199 mg/dL [facility] Comment:Diabetes: >=200 mg/d L plus symptoms BUN 20(H) 8 - 18 mg/dL [facility] Creatinine 0.82 0.70 - 1.20 mg/dL [facility] Sodium 140 135 - 145 mmol/L [facility] Potassium 4.1 3.5 - 5.0 mmol/L [facility] Comment: Please note: ??Patients with WBC >100,000 may have falsely elevated Potassium levels. ??For accurate Potassium quantification in these patients send serum separator tube (gold top) for subsequent determinations. ??Contact the Clinical Chemistry Laboratory if there are any questions. Chloride 105 98 - 107 mmol/L [facility] CO2 22 22 - 31 mmol/L [facility] Anion Gap 13 5 - 15 mmol/L [facility] Calcium 9.8 8.5 - 10.5 mg/dL [facility] Total Protein 7.2 6.1 - 8.0 g/dL [facility] Albumin 4.4 3.2 - 5.2 g/dL [facility] AST 31(H) 0 - 30 unit/L [facility] ALT 24 0 - 30 unit/L [facility] Alk Phos 64 35 - 105 unit/L [facility] Total Bilirubin 0.7 0.2 - 1.3 mg/dL [facility] Estimated GFR 77 >=60 mL/min/1. 73 m?? [facility] Comment: This patient's estimated [...] Resulting Agency Comment Spec In Lab Irene Lamar MD CHEMISTRY ORDERABLES [facility] [place] [address] * US Abdomen Limited Hepatology Protocol (03/30/2023 9:54 AM EST) Anatomical Region Laterality Modality Abdomen Ultrasound 03/30/2023 9:52 AM EST Impressions 03/30/2023 12:28 PM EST 1. ??Coarse hepatic parenchyma with capsular nodularity consistent with known cirrhosis. No focal lesion. 2. ??Main portal vein is patent with hepatopetal flow. 3. ??No ascites. 4. ??Normal gallbladder. No biliary ductal dilatation. I have personally reviewed the image(s) and the resident's interpretation and agree with the findings, Ke Jay MD at 03/30/2023 12:19 PM Thank you for letting us participate in the care of this patient. If you are a health care provider and have any questions regarding this report, please contact the number above. For patients who have questions, please contact the health healthcare specialist that requested your imaging first. ? Ke Jay, Staff Physician Electronically Signed Final Report ?? 03/30/2023 12:27 pm Narrative 03/30/2023 12:28 PM EST Abdominal ? (Signed Final 03/30/2023 12:27 pm) PATIENT INFO: ID #: ? [id number] ?: ??[birth year] (72 yrs)(F) Name: ? PREMA SALGADO ?Visit Date: 03/30/2023 09:52 am PERFORMED BY: Attending: ?Pierre LUTHER, Ke Conklin Resident: ? Joseph LUTHER, Ada Barrow Performed By: ? Elba Milian RDMS Referred By: ?IRENE ALMAR Location: ? [place] [facility] Protocol - Abdominal ?[id number] Limited Survey Single Organ or Quadrant - [id number] INDICATIONS: cirrhosis, screen for hcc COMPARISON: US: ??08/17/22. MRI: 07/22/21. ------ LIVER: ------ Right Lobe Length: ?? 20.0 ?? cm Echogenicity/Echotexture: ?? Diffusely heterogenous with coarse ? parenchyma and capsular ? nodularity. Comment: ?Enlarged liver. GALLBLADDER: Cholelithiasis: ?No stones visualized Wall Thickness: ?2. mm Focal Tenderness: ?Negative sonographic Flores's sign BILIARY TRACT: Intrahepatic Ducts: ?? Normal Extrahepatic Ducts: ?? Normal Common Duct Size: ? 3.0 ? mm FLUID COLLECTIONS: Ascites not present on 4 quadrant evaluation. Procedure Note Ke Jay MD - 03/30/2023 Abdominal (Signed Final 03/30/2023 12:27 pm) PATIENT INFO: ID #: [id number] : 54 (72 yrs)(F) Name: PREMA SALGADO Visit Date: 03/30/2023 09:52 am PERFORMED BY: Attending: Ke Jay MD Resident: Ada Ruiz MD Performed By: Elba Milian RDMS Referred By: IRENE LAMAR Location: [place] SERVICE(S) PROVIDED: [facility] - Hepatology Protocol - Abdominal [id number] Limited Survey Single Organ or Quadrant - [id number] INDICATIONS: cirrhosis, screen for hcc COMPARISON: US: 08/17/22. MRI: 07/22/21. ------ LIVER: ------ Right Lobe Length: 20.0 cm Echogenicity/Echotexture: Diffusely heterogenous with coarse parenchyma and capsular nodularity. Comment: Enlarged liver. GALLBLADDER: Cholelithiasis: No stones visualized Wall Thickness: 2. mm Focal Tenderness: Negative sonographic Flores's sign BILIARY TRACT: Intrahepatic Ducts: Normal Extrahepatic Ducts: Normal Common Duct Size: 3.0 mm FLUID COLLECTIONS: Ascites not present on 4 quadrant evaluation. IMPRESSION 1. Coarse hepatic parenchyma with capsular nodularity consistent with known cirrhosis. No focal lesion. 2. Main portal vein is patent with hepatopetal flow. 3. No ascites. 4. Normal gallbladder. No biliary ductal dilatation. I have personally reviewed the image(s) and the resident's interpretation and agree with the findings, Ke Jay MD at 03/30/2023 12:19 PM Thank you for letting us participate in the care of this patient. If you are a health care provider and have any questions regarding this report, please contact the number above. For patients who have questions, please contact the health healthcare specialist that requested your imaging first. Ke Jay, Staff Physician Electronically Signed Final Report 03/30/2023 12:27 pm Irene Lamar MD IMG US GEN ORDERABLE S documented in this encounter Visit Diagnoses Diagnosis Primary biliary cholangitis Hepatic cirrhosis, unspecified hepatic cirrhosis type, unspecified whether ascites present Primary biliary cholangitis Hepatic cirrhosis, unspecified hepatic cirrhosis type, unspecified whether ascites present documented in this encounter Care Teams Superintendent Ammunition Storage Relationship Specialty Start Date End Date Philperez Nicolasa Giles, YULIA [address] [place] [id number] PCP - General Family Medicine 01/08/21 documented as of this encounter
--- OUTSIDE RECORDS SUMMARY | 2023-11-16 15:09 | XMS_ITS | Encounter Summary ---
Author Organization [facility] [place] [address] Care Team Providers Care Clerk Television Production Name Role Phone Nicolasa Prince APRN Primary Care Provider +1- [phone] Encounter Details Date Type Department Care Team (Late st Contact Info) Description 06/09/2022 Telephone [place] [phone] Mai Larson Social History Tobacco Use Types Packs/Day Years Used Date Smoking Tobacco: Former Smokeless Tobacco: Never Sex and Gender Information Value Date Recorded Sex Assigned at Not on file Gender Identity Not on file Sexual Orientation Not on file documented as of this encounter Miscellaneous Notes * Telephone Encounter - Mai Larson - 06/09/2022 10:01 AM EST Cookie Salgado [id number] Diagnosis/Indication: cirrhosis screen for varices, screening colonoscopy Please review patient chart to confirm if [...] SCHEDULING QUESTIONS (ask all patient these questions) 1. Have you ever had a/an Upper Endoscopy & Colonoscopy before? Yes: Date [facility], 5.5 years ago, doesn't remember what hospital If yes, did you have any problems with the procedure (such as waking up during the procedure, pain or difficulties afterwards, etc.)? No What type of sedation was used: Other: unknown 2. Do you take any blood thinners or have you been diagnosed with a bleeding disorder that increases your risk of bleeding with procedures? No 3. Do you have a Pacemaker or Defibrillator device? If yes, send pool message to Cardiology with patient information and date or procedure. No 4. Are you a diabetic? If yes, call PCP/managing provider to discuss use of prep and any questions or concerns related to. Yes: Controlled by diet or medication? Both 5. Do you take any iron supplements or vitamins that contain iron? No 6. Do you have a preference regarding the gender of your provider? No ANESTHESIA QUESTIONS (YES to any question, please book with Anesthesia support) 7. Have you ever been diagnosed with Pulmonary Hypertension and/or Congential Heart Disease? No 8. Have you been diagnosed with A-Fib (atrial fibrillation) that is NOT being well controled with medications? No 9. Have you ever had an allergic or adverse reaction to Fentanyl or Versed? No 10. Have you had a problem with sedation or anesthesia? (Waking up during procedure, extreme confusion after, etc.) No 11. Do you have a diagnosis of Obstructive Sleep Apnea that requires the use of a c-pap machine? No 12. Do you use an oxygen tank at home? No 13. Do you use a rescue inhaler more than twice per day? (COPD, severe asthma) No 14. Do you experience breathing problems when you lay flat for a period of time? No 15. Do you take prescription narcotic pain medications, including suboxone or methodone? No SCHEDULING CONFIRMATIONS: Please note any and all parts of your conversation with the patient here. 16. We offer all new patients an opportunity to have an appointment with one of our associate care providers to learn more about your upcoming procedure, ask questions and get answers. These appointments are offered via telehealth. Would you be interested in scheduling this appointment? (Only ask if NEW referral patient; skip this question if [facility] provider ordered the procedure.) No 17. Is there any other information or concerns you would like to us to share with your care team inrelation to your upcoming scheduled procedure? No 18. You must have a responsible green party who will drive you to your procedure, stay on campus for the entire duration of your procedure, and drive you home from your procedure. Who will likely be your pick up truck driver for the procedure? *Please Verify the height and weight, and adjust if height and/or weight have changed* Estimated body mass index is 34.3 kg/m?? as calculated from the following: Height as of 02/10/22: 170.2 cm (5' 7). Weight as of 02/10/22: 99.3 kg (219 lb). Age:71 y.o. documented in this encounter Plan of Treatment Not on file documented as of this encounter Visit Diagnoses Not on filedocumented in this encounter Care Teams Clerk Television Production Relationship Specialty Start Date End Date Nicolasa Prince APRN [address] [place] [id number] PCP - General Family Medicine 01/08/21 documented as of this encounter
--- OUTSIDE RECORDS SUMMARY | 2023-11-16 15:09 | XMS_ITS | Encounter Summary ---
[place] [address] Care Team Providers Care Card Maker Name Role Phone Nicolasa Prince YULIA Primary Care Provider +1- [phone] Encounter Details Date Type Department Care Team (Latest Contact Info) Description 02/10/2022 10:15 AM EDT Laboratory Appointment Lab [address] [place] [phone] Primary biliary cholangitis; Type 2 diabetes mellitus with other specified complication, unspecified whether exterminator termite insulin use Social History Tobacco Use Types Packs/Day Years Used Date Smoking Tobacco: Former Smokeless Tobacco: Never Sex and Gender Information Value Date Recorded Sex Assigned at Not on file Gender Identity Not on file Sexual Orientation Not on file documented as of this encounter Plan of Treatment Not on file documented as of this encounter Procedures Procedure Name Priority Date/Time Associated Diagnosis Comments HEMOGRAM Routine 02/10/2022 11:06 AM EDT DIFFERENTIAL, AUTOMATED Routine 02/10/2022 11:06 AM EDT HC HEMOGLOBIN A1C Routine 02/10/2022 11: 06 AM EDT Type 2 diabetes mellitus with other specified complication, unspecified whether exterminator termite insulin use HC VENIPUNCTURE Routine 02/10/2022 11:06 AM EDT Primary biliary cholangitis documented in this encounter Results * (ABNORMAL) Differential, Automated (02/10/2022 11:06 AM EDT) Neutrophils % 70.8 % [facility] Neutr Abs (ANC) 2.95 1.70 - 6.10 x10(3)/[facility] Lymphocytes % 18.2 % [facility] Lymphocytes Abs 0.8(L) 0.9 - 3.2 x10(3)/[facility] Monocytes % 9.1 % [facility] Monocyte Abs 0.4 0.3 - 0.9 x10(3)/[facility] Eosinophils % 1.2 % [facility] Eosinophils Abs 0.0 0.0 - 0.4 x10(3)/[facility] Basophils % 0.5 % [facility] Basophils Abs 0.0 0.0 - 0.1 x10(3)/[facility] Immature Gran % 0.20 % [facility] Comment: Immature granulocytes(IG's)percentage and absolute count will include metamyelocytes, myelocytes, and promyelocytes. Blood smears from CBCs yielding IG's will be scanned manually for concordance. If this scan disagrees with the automated IG or if promyelocytes are noted, a manual differential will be performed. Sydnee Gran Abs 0.01 0.00 - 0.04 x10(3)/[facility] Blood Venous Draw / Unknown 02/10/2022 11:06 AM EDT 02/10/2022 12:06 PM EDT Narrative Resulting Agency Comment Spec In Lab Irene Lara MD HEMATOLOGY ORDERABLE S [facility] [place] [address] * (ABNORMAL) Hemogram (02/10/2022 11:06 AM EDT) Pathologist [facility] WBC 4.2 4.0 - 9.5 x10(3)/[facility] RBC 5.02 4.00 - 5.21 x10(6)/[facility] Hemoglobin 15.8(H) 11.7 - 15.5 g/dL [facility] Hematocrit 45.7 35.7 - 45.8 % [facility] MCV 91.0 82.6 - 94.4 [facility] MCH 31.5 27.1 - 32.0 pg [facility] MCHC 34.6 31.7 - 35.0 g/dL [facility] Platelets 118(L) 145 - 357 x10(3)/[facility] RDWSD 43.9 37.0 - 46.0 [facility] RDWCV 13.1 11.5 - 14.1 % [facility] MPV 10.4 7.6 - 12.9 [facility] nRBC % Auto 0.0 % [facility] nRBC Abs Auto 0.000 0.000 - 0.000 x10(3)/[facility] Blood Venous Draw / Unknown 02/10/2022 11:06 AM EDT 02/10/2022 12:06 PM EDT Narrative Resulting Agency Comment Spec In Lab Irene Lara MD HEMATOLOGY ORDERABLE S [facility] [place] [address] * (ABNORMAL) Hemoglobin A1c (02/10/2022 11:06 AM EDT) Hemoglobin A1C 7.0(H) 4.3 - 5.6 % [facility] Comment: Reference Range: 4.3 - 5.6% 5.7 - 6.4% - Increased Risk of Developing Diabetes Mellitus >= 6.5% - Consistent with diagnosis of Diabetes Mellitus In the absence of hyperglycemia (i.e. plasma glucose > 200 mg/dL) or classic symptoms of hyperglycemia a repeat measurement of HbA1c should be performed on a separate sample to confirm the diagnosis. Diagnosis and Classification of Diabetes Mellitus, Diabetes Care 2013; 36: Suppl. 1, S67-74 Est Avg Gluc 155 mg/dL [facility] Comment: eAG equivalents for HbA1c percentages: HbA1c(%) ?eAG(mg/dL) 6.0 ?126 6.5 ?140 7.0 ?154 7.5 ?169 8.0 ?183 8.5 ?197 9.0 ?212 9.5 ?226 10.0 ? 240 Limitations: The eAG calculation has not been validated on women, individuals below 18 years old and above 70 years old, and individuals with hemoglobinopathies. Additional resources are available on the ADA website. Herman REED, Kellie J, Ann R, et al. ??Translating the A1C assay into estimated average glucose values. ??Diabetes Care 2008:31(8):4264-5404. Blood 02/10/2022 11:0 6 AM EDT 02/10/2022 11:10 AM EDT Narrative Resulting Agency Comment Spec In Lab Irene Lara MD CHEMISTRY ORDERABLES [facility] [place] [address] * Hepatic Function Panel (02/10/2022 11:06 AM EDT) Total Protein 7.4 6.1 - 8.0 g/dL [facility] Albumin 4.2 3.2 - 5.2 g/dL [facility] AST 21 0 - 30 unit/L [facility] ALT 17 0 - 30 unit/L [facility] Alk Phos 71 35 - 105 unit/L [facility] Total Bilirubin 0.6 0.2 - 1.3 mg/dL [facility] Bili, Direct 0.2 0.0 - 0.3 mg/dL [facility] Blood 02/10/2022 11:0 6 AM EDT 02/10/2022 11:10 AM EDT Narrative Resulting Agency Comment Spec In Lab Irene Lara MD CHEMISTRY ORDERABLES [facility] [place] [address] documented in this encounter Visit Diagnoses Diagnosis Primary biliary cholangitis Type 2 diabetes mellitus with other specified complication, unspecified whether exterminator termite insulin use documented in this encounter Care Teams Card Maker Relationship Specialty Start Date End Date Nicolasa Prince APRN [address] [place] [id number] PCP - General Family Medicine 01/08/21 documented as of this encounter
--- OUTSIDE RECORDS SUMMARY | 2023-11-16 15:09 | XMS_ITS | Encounter Summary ---
Author Organization [facility] Address [facility] [place] [address] Care Team Providers Care Business Integration Analyst Name Role Phone Nicolasa Prince APRN Primary Care Provider +1- [phone] Encounter Details Date Type Department Care Team (Late st Contact Info) Description 02/15/2022 Orders [place] [address] Irene Lara MD [facility] [place] [address] Hepatic cirrhosis, unspecified hepatic cirrhosis type, unspecified whether ascites present; Screening for colon cancer Social History Tobacco Use Types Packs/Day Years Used Date Smoking Tobacco: Former Smokeless Tobacco: Never Sex and Gender Information Value Date Recorded Sex Assigned at Not on file Gender Identity Not on file Sexual Orientation Not on file documented as of this encounter Plan of Treatment Scheduled Orders Name Type Priority Associated Diagnoses Orde r Schedule ENDOSCOPY CASE REQUEST: EGD, UPPER GI ENDOSCOPY, COLONOSCOPY, DIAGNOSTIC Procedures Routine Hepatic cirrhosis, unspecified hepatic cirrhosis type, unspecified whether ascites present Screening for colon cancer Ordered: 02/15/2022 documented as of this encounter Visit Diagnoses Diagnosis Hepatic cirrhosis, unspecified hepatic cirrhosis type, unspecified whether ascites present Screening for colon cancer Special screening for malignant neoplasms, colon documented in this encounter Care Teams Business Integration Analyst Relationship Specialty Start Date End Date Nicolasa Prince APRN [address] [place] [address] PCP - General Family Medicine 01/08/21 documented as of this encounter
--- OUTSIDE RECORDS SUMMARY | 2023-11-16 15:09 | XMS_ITS | Encounter Summary ---
Author Organization [facility] Address [facility] [place] [address] Care Team Providers Care Access Coordinator Name Role Phone Nicolasa Prince APRN Primary Care Provider +1- [phone] Encounter Details Date Type Department Care Team (Late st Contact Info) Description 10/29/2021 Orders [place] [address] Irene Lara MD [facility] [place] [address] Type 2 diabetes mellitus with other specified complication, unspecified whether mcc insulin use Social History Tobacco Use Types Packs/Day Years Used Date Smoking Tobacco: Former Smokeless Tobacco: Never Sex and Gender Information Value Date Recorded Sex Assigned at Not on file Gender Identity Not on file Sexual Orientation Not on file documented as of this encounter Plan of Treatment Not on file documented as of this encounter Results * (ABNORMAL) Hemoglobin A1c (02/10/2022 11:06 AM EDT) [facility] Hemoglobin A1C 7.0(H) 4.3 - 5.6 % [facility] Comment: Reference Range: 4.3 - 5.6% [...] Mellitus, Diabetes Care 2013; 36: Suppl. 1, S63-92 Est Avg Gluc 155 mg/dL [facility] Comment: eAG equivalents for HbA1c percentages: [...] into estimated average glucose values. ??Diabetes Care 2008:31(8):4791-2912. Blood 02/10/2022 11:0 6 AM EDT 02/10/2022 11:10 AM EDT Narrative Resulting Agency Comment Spec In Lab Irene Lara MD CHEMISTRY ORDERABLES [facility] [place] [place] [address] documented in this encounter Visit Diagnoses Diagnosis Type 2 diabetes mellitus with other specified complication, unspecified whether receivables specialist insulin use documented in this encounter Care Teams Access Coordinator Relationship Specialty Start Date End Date Nicolasa Prince APRN [address] [address] PCP - General Family Medicine 01/08/21 documented as of this encounter
--- OUTSIDE RECORDS SUMMARY | 2023-11-16 15:09 | XMS_ITS | Encounter Summary ---
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; Primary biliary cholangitis Social History Tobacco Use Types Packs/Day Years Used Date Smoking Tobacco: Former Smokeless Tobacco: Never Sex and Gender Information Value Date Recorded Sex Assigned at Not on file Gender Identity Not on file Sexual Orientation Not on file documented as of this encounter Plan of Treatment Not on file documented as of this encounter Visit Diagnoses Diagnosis 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
--- OUTSIDE RECORDS SUMMARY | 2023-11-16 15:09 | XMS_ITS | Encounter Summary ---
Author Organization [facility] [place] [address] Care Team Providers Care Formstone Fitter Name Role Phone Nicolasa Prince APRN Primary Care Provider +1- [phone] Reason for Visit * Reason Onset Date Comments Appointment 06/24/2023 US/Abdomen Encounter Details Date Type Department Care Team (Late st Contact Info) Description 06/24/2023 [place] [address] Gisele Jim RN Appointment (US/Abdomen) Social History Tobacco Use Types Packs/Day Years [...] encounter Miscellaneous Notes * Telephone Encounter - Gisele Jim RN - 06/24/2023 1:31 PM EST Reached out to patient to schedule Ultra Sound/Abdomen ([facility]) Dr. Lara ordered 03/30/23 to be completed 09/2023 and her follow up appointment with Dr. Lara Left message with number asking patient call to Gastroenterology to schedule the above appointments documented in this encounter Plan of Treatment Not on file documented as of this encounter Visit Diagnoses Not on filedocumented in this encounter Care Teams Formstone Fitter Relationship Specialty Start Date End Date Nicolasa Prince APRN [address] [address] PCP - General Family Medicine 01/08/21 documented as of this encounter
--- OUTSIDE RECORDS SUMMARY | 2023-11-16 15:09 | XMS_ITS | Encounter Summary ---
Author Organization [facility] [place] [address] Care Team Providers Care Horizontal Boring Mill Operator Name Role Phone Nicolasa Prince APRN Primary Care Provider +1- [phone] Reason for Visit * Reason Comments Medication Refill Encounter Details Date Type Department Care Team (Late st Contact Info) Description 09/15/2022 [place] [address] Irene Lara MD [facility] [place] [address] Autoimmune hepatitis Social History Tobacco Use Types [...] hepatitis documented in this encounter Care Teams Horizontal Boring Mill Operator Relationship Specialty Start Date End Date Nicolasa Prince APRN [address] [place] [address] PCP - General Family Medicine 01/08/21 documented as of this encounter
--- OUTSIDE RECORDS SUMMARY | 2023-11-16 15:09 | XMS_ITS | Encounter Summary ---
Author Organization [facility] [place] [address] Care Team Providers Care Bilingual Spanish Inbound Sales Name Role Phone Nicolasa Prince APRN Primary Care Provider +1- [phone] Encounter Details Date Type Department Care Team (Late st Contact Info) Description 07/22/2022 External Results Gastroenterology at [facility] [place] [address] Irene Lara MD [facility] [place] [address] Social History Tobacco Use Types Packs/Day Years [...] LAB CBC CMP THYROID RESULTS PANEL Routine 07/22/2022 documented in this encounter Results * CBC / CMP / Thyroid External Results (07/22/2022) Sodium 139 Potassium 5.0 Chloride 104 CO2 28 BUN 33 Creatinine 1.2 Estimated GFR 49 Glucose Lvl 157 Calcium 10.0 Total Protein 8.3 Albumin 3.9 Total Bilirubin 0.7 Alk Phos 90 AST 28 ALT 29 Historical Provider EXTERNAL LAB [facility] documented in this encounter Visit Diagnoses Not on filedocumented in this encounter Care Teams Bilingual Spanish Inbound Sales Relationship Specialty Start Date End Date Nicolasa Prince APRN [address] [place] [address] PCP - General Family Medicine 01/08/21 documented as of this encounter
--- OUTSIDE RECORDS SUMMARY | 2023-11-16 15:09 | XMS_ITS | Encounter Summary ---
Author [facility] [place] [address] Care Team Providers Care Design Analyst Name Role Phone Nicolasa Prince APRN Primary Care Provider +1- [phone] Encounter Details Date Type Department Care Team (Latest Contact Info) Description 03/30/2023 10:15 AM EST Laboratory Appointment Lab [address] [place] [address] Primary biliary cholangitis; Hepatic cirrhosis, unspecified hepatic [...] Priority Date/Time Associated Diagnosis Comments HEMOGRAM Routine 03/30/2023 10:23 AM EST Primary biliary cholangitis Hepatic cirrhosis, unspecified hepatic cirrhosis type, unspecified whether ascites present DIFFERENTIAL, AUTOMATED Routine 03/30/2023 10:23 AM EST Primary biliary cholangitis Hepatic cirrhosis, unspecified hepatic cirrhosis type, unspecified whether ascites present HC VENIPUNCTURE Routine 03/30/2023 10:23 AM EST Primary biliary cholangitis Hepatic cirrhosis, unspecified hepatic cirrhosis type, unspecified whether ascites present HC PROTHROMBIN TIME Routine 03/30/2023 1 0:23 AM EST Primary biliary cholangitis Hepatic cirrhosis, unspecified hepatic cirrhosis type, unspecified whether ascites present HC CBC,PLT & AUTO DIFF Routine 3 10:23 AM EST Primary biliary cholangitis Hepatic cirrhosis, unspecified hepatic cirrhosis type, unspecified whether ascites present COMPREHENSIVE METABOLIC PANEL (NON-FASTING) Routine 03/30/2023 10:23 AM EST Primary biliary cholangitis Hepatic cirrhosis, unspecified hepatic cirrhosis type, unspecified whether ascites present documented in this encounter Results * (ABNORMAL) Differential, Automated (03/30/2023 10:23 AM EST) Neutrophils % 64.6 % [facility] Neutr Abs (ANC) 2.35 1.70 - 6.10 x10(3)/ L [facility] Lymphocytes % 22.9 % [facility] Lymphocytes Abs 0.8(L) 0.9 - 3.2 x10(3)/ L [facility] Monocytes % 10.5 % [facility] Monocyte Abs 0.4 0.3 - 0.9 x10(3)/[facility] Eosinophils % 1.1 % [facility] Eosinophils Abs 0.0 0.0 - 0.4 x10(3)/[facility] Basophils % 0.6 % [facility] Basophils Abs 0.0 0.0 - 0.1 x10(3)/ L [facility] Immature Gran % 0.30 % [facility] Comment: Immature granulocytes(IG's)percentage and absolute count will include metamyelocytes, myelocytes, and promyelocytes. Blood smears from CBCs yielding IG's will be scanned manually for concordance. If this scan disagrees with the automated IG or if promyelocytes are noted, a manual differential will be performed. Sydnee Gran Abs 0.01 0.00 - 0.04 x10(3)/ L [facility] Blood 03/30/2023 10:2 3 AM EST 03/30/2023 10:31 AM EST Narrative Resulting Agency Comment Spec In Lab Irene Lara MD HEMATOLOGY ORDERABLE S [facility] [place] [address] * (ABNORMAL) Hemogram (03/30/2023 10:23 AM EST) WBC 3.6(L) 4.0 - 9.5 x10(3)/[facility] RBC 5.01 4.00 - 5.21 x10(6)/[facility] Hemoglobin 15.8(H) 11.7 - 15.5 g/dL [facility] Hematocrit 46.6(H) 35.7 - 45.8 % [facility] MCV 93.0 82.6 - 94.4 [facility] MCH 31.5 27.1 - 32.0 pg [facility] MCHC 33.9 31.7 - 35.0 g/dL [facility] Platelets 131(L) 145 - 357 x10(3)/[facility] RDWSD 44.9 37.0 - 46.0 [facility] RDWCV 13.2 11.5 - 14.1 % [facility] MPV 10.4 7.6 - 12.9 [facility] nRBC % Auto 0.0 % [facility] nRBC Abs Auto 0.000 0.000 - 0.000 x10(3)/[facility] Blood 03/30/2023 10:2 3 AM EST 03/30/2023 10:31 AM EST Narrative Resulting Agency Comment Spec In Lab Irene Lara MD HEMATOLOGY ORDERABLE S [facility] [place] [address] * (ABNORMAL) Comprehensive metabolic panel (non-fasting) (03/30/2023 10:23 AM EST) Glucose Lvl 110 65 - 199 mg/dL [facility] Comment:Diabetes: >=200 mg/d L plus symptoms BUN 20(H) 8 - 18 mg/dL [facility] Creatinine 0.82 0.70 - 1.20 mg/dL [facility] Sodium 140 135 - 145 mmol/L [facility] Potassium 4.1 3.5 - 5.0 mmol/L [facility] Comment: Please note: ??Patients with WBC >100,000 may have falsely elevated Potassium levels. ??For accurate Potassium quantification in these patients send serum separator tube (gold top) for subsequent determinations. ??Contact the Clinical Chemistry Laboratory if there are any questions. Chloride 105 98 - 107 mmol/L [facility] CO2 22 22 - 31 mmol/L [facility] Anion Gap 13 5 - 15 mmol/L [facility] Calcium 9.8 8.5 - 10.5 mg/dL [facility] Total Protein 7.2 6.1 - 8.0 g/dL [facility] Albumin 4.4 3.2 - 5.2 g/dL [facility] AST 31(H) 0 - 30 unit/L [facility] ALT 24 0 - 30 unit/L [facility] Alk Phos 64 35 - 105 unit/L [facility] Total Bilirubin 0.7 0.2 - 1.3 mg/dL [facility] Estimated GFR 77 >=60 mL/min/1. 73 m?? [facility] Comment: This patient's estimated GFR [...] Lara MD CHEMISTRY ORDERABLES Performing Organization Address [facility] Phone Number [facility] [place] [address] * Prothrombin Time (03/30/2023 10:23 AM EST) PT 12.0 9.4 - 12.5 sec [facility] INR 1.1 [facility] Comment: An INR <2.0 indicates adequate [...] Lab Irene Lara MD HEMATOLOGY ORDERABLE S Performing Organization Address [facility] Number [facility] [place] [address] * AFP tumor marker (03/30/2023 10:23 AM EST) AFP 2.8 <=8.3 ng/mL [facility] Comment: This result was generated using a Mendoza Jonathan immunoassay. ??Results obtained from other methods or manufacturers cannot be used interchangeably with this method. Blood 03/30/2023 10:2 3 AM EST 03/30/2023 10:30 AM EST Narrative Resulting Agency Comment Spec In Lab Irene Lara MD CHEMISTRY ORDERABLES [facility] [place] [address] documented in this encounter Visit Diagnoses Diagnosis Primary biliary cholangitis Hepatic cirrhosis, unspecified hepatic cirrhosis type, unspecified whether ascites present documented in this encounter Care Teams Design Analyst Relationship Specialty Start Date End Date Nicolasa Prince APRN [address] [place] [address] PCP - General Family Medicine 01/08/21 documented as of this encounter
--- OUTSIDE RECORDS SUMMARY | 2023-11-16 15:09 | XMS_ITS | Encounter Summary ---
Author Organization [facility] Address [facility] [place] [address] Care Team Providers Care Basic Sciences Professor Name Role Phone Nicolasa Prince APRN Primary Care Provider +1- [phone] Encounter Details Date Type Department Care Team (Latest Contact Info) Description 08/17/2022 10:14 AM EDT - 08/17/2022 11:59 PM EDT Hospital Encounter [place] [address] Irene Lamar MD [facility] [place] [address] Autoimmune hepatitis; Primary biliary cholangitis; Hepatic cirrhosis, unspecified hepatic cirrhosis type, unspecified whether ascites present Discharge Disposition: Home Social History Tobacco Use [...] Tablet 01/22/20212023 documented as of this encounter Plan of Treatment Not on file documented as of this encounter Procedures Procedure Name Priority Date/Time Associated Diagnosis Comments US ABDOMEN LIMITED HEPATOLOGY PROTOCOL Routine 08/17/2022 10:54 AM EDT Autoimmune hepatitis Primary biliary cholangitis Hepatic cirrhosis, unspecified hepatic cirrhosis type, unspecified whether ascites present documented in this encounter Results * US [...] PM Electronically signed by: Kashmir Lindsay MD, [facility] ([phone]), at 08/17/2022 2:04 PM Thank you for letting us participate in the care of this patient. If you are a health care provider and have any questions regarding this report, please contact the number above. For patients who have questions, please contact the health manager long term care that requested your imaging first. ?Kashmir Lindsay, Staff Physician Electronically Signed Final Report ?? 08/17/2022 02:12 pm Narrative 08/17/2022 2:12 PM EDT Abdominal ? (Signed Final 08/17/2022 02:12 pm) PATIENT INFO: ID #: ? [id number] ?: ??[birth year] (71 yrs)(F) Name: ? PREMA SALGDAO ?Visit Date: 08/17/2022 10:53 am PERFORMED BY: Attending: ?Neftali LUTHER, Kashmir Resident: ? Milagros LUTHER, James Curtis Performed By: ? Angelina Crystal RDMS Referred By: ?IRENE LAMAR Location: ? [place] [facility] - Hepatology Protocol - Abdominal ?52478 Limited Survey Single Organ or Quadrant - [id number] INDICATIONS: cirrhosis, screen for hcc; assess for [...] 08/17/2022 02:12 pm) PATIENT INFO: ID #: [id number] : [birth year] (71 yrs)(F) Name: PREMA SALGADO Visit Date: 08/17/2022 10:53 am PERFORMED BY: Attending: Kashmir Lindsay MD Resident: James Linares MD Performed By: Angelina Crystal RDMS Referred By: IRENE LAMAR Location: [place] SERVICE(S) PROVIDED: [facility] - Hepatology Protocol - Abdominal 07181 Limited Survey Single Organ or Quadrant - [id number] INDICATIONS: cirrhosis, screen for hcc; assess for [...] PM Electronically signed by: Kashmir Lindsay MD, [facility] ([phone]), at 08/17/2022 2:04 PM Thank you for letting us participate in the care of this patient. If you are a health care provider and have any questions regarding this report, please contact the number above. For patients who have questions, please contact the health manager long term care that requested your imaging first. Kashmir Lindsay, Staff Physician Electronically Signed Final Report 08/17/2022 02:12 pm Irene Lamar MD IMG US GEN ORDERABLE S documented in this encounter Visit Diagnoses Diagnosis Autoimmune hepatitis Primary biliary cholangitis Hepatic cirrhosis, unspecified hepatic cirrhosis type, unspecified whether ascites present documented in this encounter Care Teams Basic Sciences Professor Relationship Specialty Start Date End Date Nicolasa Prince APRN [address] [place] [address] PCP - General Family Medicine 01/08/21 documented as of this encounter
--- OUTSIDE RECORDS SUMMARY | 2023-11-16 15:09 | XMS_ITS | Encounter Summary ---
Author Organization [facility] [place] [address] Care Team Providers Care Water Pollution Scientist Name Role Phone Nicolasa Prince APRN Primary Care Provider +1- [phone] Encounter Details Date Type Department Care Team (Late st Contact Info) Description 03/10/2023 [place] [phone] Irene Lara MD [facility] [place] [address] Social History Tobacco Use Types Packs/Day Years [...] encounter Miscellaneous Notes * Telephone Encounter - Irene Lara MD - 03/10/2023 9:28 AM EST Called with lab results. They look normal. She cut aza to 25mg/day in December. Plan: Stop Azathioprine, repeat labs in one month Sincerely, Irene Lara MD Section of Gastroenterology & Hepatology [address] [place] [address] documented in this encounter Plan of Treatment Not on file documented as of this encounter Visit Diagnoses Not on filedocumented in this encounter Care Teams Water Pollution Scientist Relationship Specialty Start Date End Date Nicolasa Prince APRN [address] [place] [address] PCP - General Family Medicine 01/08/21 documented as of this encounter
--- OUTSIDE RECORDS SUMMARY | 2023-11-16 15:09 | XMS_ITS | Encounter Summary ---
Author Organization [facility] [place] [address] Care Team Providers Care Audio Visual Design Engineer Name Role Phone Nicolasa Prince APRN Primary Care Provider +1- [phone] Encounter Details Date Type Department Care Team (Late st Contact Info) Description 11/24/2021 External Results [place] [address] Irene Lara MD [facility] [place] [address] Social History Tobacco Use Types Packs/Day Years [...] LAB CBC CMP THYROID RESULTS PANEL Routine 11/20/2021 documented in this encounter Results * CBC / CMP / Thyroid External Results (11/20/2021) Total Protein 7.7 Albumin 3.8 Total Bilirubin 1.1 Alk Phos 68 AST 30 ALT 37 Hemoglobin A1C 7.9 Historical Provider EXTERNAL LAB [facility]EE[facility] documented in this encounter Visit Diagnoses Not on filedocumented in this encounter Care Teams Audio Visual Design Engineer Relationship Specialty Start Date End Date Nicolasa Prince APRN [address] [place], [place] [address] PCP - General Family Medicine 01/08/21 documented as of this encounter
--- OUTSIDE RECORDS SUMMARY | 2023-11-16 15:09 | XMS_ITS | Encounter Summary ---
Author Organization [facility] [place] [address] Care Team Providers Care Groundskeeping Maintenance Name Role Phone Nicolasa Prince APRN Primary Care Provider +1- [phone] Encounter Details Date Type Department Care Team (Late st Contact Info) Description 05/23/2022 Telephone [place] [phone] Alisia Driver Social History Tobacco Use Types Packs/Day Years Used Date Smoking Tobacco: Former Smokeless Tobacco: Never Sex and Gender Information Value Date Recorded Sex Assigned at Not on file Gender Identity Not on file Sexual Orientation Not on file documented as of this encounter Miscellaneous Notes * Telephone Encounter - Alisia Driver - 05/23/2022 1:25 PM EST Placed outgoing phone call to patient in order to schedule a procedure. Phone Call Outcome: Left voicemail asking for return call. This was the 1st attempt If the call is returned, it can be handled by: [facility] Crystal Grinder documented in this encounter Plan of Treatment Not on file documented as of this encounter Visit Diagnoses Not on filedocumented in this encounter Care Teams Groundskeeping Maintenance Relationship Specialty Start Date End Date Nicolasa Prince APRN [address] [place] [address] PCP - General Family Medicine 01/08/21 documented as of this encounter
--- OUTSIDE RECORDS SUMMARY | 2023-11-16 15:09 | XMS_ITS | Encounter Summary ---
Author Organization [facility] [place] [address] Care Team Providers Care Tape Folding Machine Operator Name Role Phone Nicolasa Prince APRN Primary Care Provider +1- [phone] Encounter Details Date Type Department Care Team (Late st Contact Info) Description 03/30/2023 11:30 AM EST Office [place] [address] Carolynn Lamar MD [facility] [place] [address] Biliary cirrhosis Social History Tobacco Use Types Packs/Day Years [...] Sign Reading Time Taken Comments Blood Pressure 129/62 03/30/2023 11:22 AM EST Pulse 82 03/30/2023 11:22 AM EST Temperature - - Respiratory Rate - - Oxygen Saturation - - Inhaled Oxygen Concentration - - Weight 97.5 kg (215 lb) 03/30/2023 11:22 AM EST Height 170.2 cm (5' 7) 03/30/2023 11:22 AM EST Body Mass Index 33.67 03/30/2023 11:22 AM EST documented in this encounter Progress Notes * Carolynn Lamar MD - 03/30/2023 11:30 AM EST Gastroenterology and Hepatology Follow Up Note Patient: Prema Salgado : 1950 Provider: Carolynn Lamar MD Problem List: PBC/ AIH - [...] PBC/AIH. Her original diagnosis was made in [place] and she was managed by a turf sales person at [facility]. Her records were extensively reviewed in care [...] normal since approximately 2016. She moved to [place] in 2019.. Living with her two brothers. She is generally feeling well. No complaints. Started on oral semaglutide recently for diabetes. Lab Results Component Value Date ALT 23 03/01/2023 AST 26 03/01/2023 ALKPHOS 63 03/01/2023 BILITOT 0.5 03/01/2023 Lab Results Component Value Date WBC 3.6 (L) 03/30/2023 HGB 15.8 (H) 03/30/2023 HCT 46.6 (H) 03/30/2023 MCV 93.0 03/30/2023 PLATELET 131 (L) 03/30/2023 Current Outpatient Medications Medication Sig Dispense Refill fenofibrate (Tricor) 145 mg tablet TAKE 1 TABLET BY MOUTH DAILY 90 tablet 3 Rybelsus 3 mg tablet Rybelsus 7 mg tablet metoprolol succinate XL (Toprol-XL) 25 mg ER 24 hr tablet Take 25 mg by mouth Daily. Ursodiol (Bridgette Forte) 500 mg tablet TAKE 1 TABLET BY MOUTH TWICE DAILY 180 tablet 2 losartan (Cozaar) 50 mg Tablet Take 2 tablets by mouth daily. 90 tablet 0 azaTHIOprine (Imuran) 50 mg Tablet Take 1 tablet by mouth daily. 90 tablet 3 cholecalciferol, Vitamin D3, 50 mcg (2,000 unit) Capsule Take by mouth. Jardiance 25 mg Tablet Tradjenta 5 mg Tablet aspirin 325 mg Tablet Take 325 mg by mouth daily. No current facility-administered medications for this visit. Vitals: 03/30/23 1122 BP: 129/62 BP Location ([facility]): Right arm Patient Position: Sitting BP Cuff Sizes: Large Adult (32-43 cm) Pulse: 82 Weight: 97.5 kg (215 lb) Height: 170.2 cm (5' 7) Body mass index is 33.67 kg/m??. Exam: Looks well Recent Results (from the past 24 hour(s)) Prothrombin Time Result Value Ref Range PT 12.0 9.4 - 12.5 sec INR 1.1 Comprehensive metabolic panel (non-fasting) Result Value Ref Range Glucose Lvl 110 65 - 199 mg/dL BUN 20 (H) 8 - 18 mg/dL Creatinine 0.82 0.70 - 1.20 mg/dL Sodium 140 135 - 145 mmol/L Potassium 4.1 3.5 - 5.0 mmol/L Chloride 105 98 - 107 mmol/L CO2 22 22 - 31 mmol/L Anion Gap 13 5 - 15 mmol/L Calcium 9.8 8.5 - 10.5 mg/dL Total Protein 7.2 6.1 - 8.0 g/dL Albumin 4.4 3.2 - 5.2 g/dL AST 31 (H) 0 - 30 unit/L ALT 24 0 - 30 unit/L Alk Phos 64 35 - 105 unit/L Total Bilirubin 0.7 0.2 - 1.3 mg/dL Estimated GFR 77 >=60 mL/min/1.73 m?? Hemogram Result Value Ref Range WBC 3.6 (L) 4.0 - 9.5 x10(3)/mcL RBC 5.01 4.00 - 5.21 x10(6)/mcL Hemoglobin 15.8 (H) 11.7 - 15.5 g/dL Hematocrit 46.6 (H) 35.7 - 45.8 % MCV 93.0 82.6 - 94.4 fL MCH 31.5 27.1 - 32.0 pg MCHC 33.9 31.7 - 35.0 g/dL Platelets 131 (L) 145 - 357 x10(3)/mcL RDWSD 44.9 37.0 - 46.0 fL RDWCV 13.2 11.5 - 14.1 % MPV 10.4 7.6 - 12.9 fL nRBC % Auto 0.0 % nRBC Abs Auto 0.000 0.000 - 0.000 x10(3)/mcL Differential, Automated Result Value Ref Range Neutrophils % 64.6 % Neutr Abs (ANC) 2.35 1.70 - 6.10 x10(3)/mcL Lymphocytes % 22.9 % Lymphocytes Abs 0.8 (L) 0.9 - 3.2 x10(3)/mcL Monocytes % 10.5 % Monocyte Abs 0.4 0.3 - 0.9 x10(3)/mcL Eosinophils % 1.1 % Eosinophils Abs 0.0 0.0 - 0.4 x10(3)/mcL Basophils % 0.6 % Basophils Abs 0.0 0.0 - 0.1 x10(3)/mcL Immature Gran % 0.30 % Sydnee Gran Abs 0.01 0.00 - 0.04 x10(3)/mcL Assessment and Plan: 70-year-old woman with history [...] PBC Off AZA as of early 03/2023, repeat LFT's in one month locally EGD at time of next colo for varices screening- 2025 US for HCC screening in six months, labs and follow up same day Time spent with patient: 25 min Time spent reviewing records, documenting- all today : 8 min Carolynn Lamar MD Section of Gastroenterology & Hepatology [address] [place], [place] [id number] Cc: Nicolasa Prince APRN SURGICAL PATHOLOGY REPORT Patient: PREMA SALGADO MR #: [id number] Submitted by: Elie Moreno MD FINAL DIAGNOSIS [...] the ductules cannot be definitively distinguished from [place] bile ducts. There is patchy periportal hepatocellular [...] had a prior liver biopsy reviewed at [facility] (see accession number [id number]), although the slides are not available for direct comparison at this time. However, based on the microscopic description, it appears that fibrosis may have progressed. documented in this encounter Plan of Treatment Not on file documented as of this encounter Results * US Abdomen Limited Hepatology Protocol (09/28/2023 10:54 AM EDT) WORKSTATION ID [id number] DH RAD Anatomical Region Laterality Modality Abdomen Ultrasound [...] AM Electronically signed by: Fiordaliza Fabian MD, [facility] ([phone]), at 09/28/2023 11:34 AM Thank you for letting us participate in the care of this patient. If you are a health care provider and have any questions regarding this report, please contact the number above. For patients who have questions, please contact the health interior plant caretaker that requested your imaging first. ?Fiordaliza Fabian, [facility] Fmd Teacher Electronically Signed Final Report ?? 09/28/2023 11:41 am Narrative 09/28/2023 11:42 AM EDT Abdominal ? (Signed Final 09/28/2023 11:41 am) PATIENT INFO: ID #: ? [id number] ?: ??[birth year] (72 yrs)(F) Name: ? PREMA SALGADO ?Visit Date: 09/28/2023 10:34 am PERFORMED BY: Attending: ?Caren LUTHER, Fiordaliza Prado Resident: ? Madhavi Thomas MD Performed By: ? Joanna Bronson RDMS Referred By: ?CAROLYNN LAMAR Location: ? [place] SERVICE(S) PROVIDED: UABDLIMHEP - Hepatology Protocol - Abdominal ?19365 Limited Survey Single Organ or Quadrant - [id number] INDICATIONS: cirrhosis, screen for hcc COMPARISON: US [...] 09/28/2023 11:41 am) PATIENT INFO: ID #: [id number] : [birth year] (72 yrs)(F) Name: PREMA SALGADO Visit Date: 09/28/2023 10:34 am PERFORMED BY: Attending: Fiordaliza Fabian MD Resident: Madhavi Thomas MD Performed By: Joanna Bronson RDMS Referred By: CAROLYNN LAMAR Location: [place] SERVICE(S) PROVIDED: UABDLIMHE - Hepatology Protocol - Abdominal 25953 Limited Survey Single Organ or Quadrant - [id number] INDICATIONS: cirrhosis, screen for hcc COMPARISON: US [...] AM Electronically signed by: Fiordaliza Fabian MD, [facility] ([phone]), at 09/28/2023 11:34 AM Thank you for letting us participate in the care of this patient. If you are a health care provider and have any questions regarding this report, please contact the number above. For patients who have questions, please contact the health interior plant caretaker that requested your imaging first. Fiordaliza Fabian E Fmd Teacher Electronically Signed Final Report 09/28/2023 11:41 am Carolynn Lamar MD IMG US GEN ORDERABLE S documented in this encounter Visit Diagnoses Diagnosis Biliary cirrhosis Biliary cirrhosis documented in this encounter Care Teams Tape Folding Machine Operator Relationship Specialty Start Date End Date Nicolasa Prince APRN [address] [address] PCP - General Family Medicine 01/08/21 documented as of this encounter
--- OUTSIDE RECORDS SUMMARY | 2023-11-16 15:09 | XMS_ITS | Encounter Summary ---
Author Organization [facility] [place] [address] Care Team Providers Care Fixture Designer Name Role Phone Nicolasa Prince APRN Primary Care Provider +1- [phone] Encounter Details Date Type Department Care Team (Late st Contact Info) Description 12/25/2022 External [place] [address] Irene Lara MD [facility] [place] [address] Social History Tobacco Use Types Packs/Day Years [...] LAB CBC CMP THYROID RESULTS PANEL Routine 12/25/2022 documented in this encounter Results * CBC / CMP / Thyroid External Results (12/25/2022) WBC 3.26 RBC 4.93 Hemoglobin 15.6 Hematocrit 47.1 MCV 96.0 Platelets 103 Sodium 138 Potassium 4.8 Chloride 104 CO2 25 BUN 32 Creatinine 1.0 Estimated GFR 60.61 Glucose Lvl 169 Calcium 9.5 Total Protein 7.5 Albumin 3.4 Total Bilirubin 0.6 Alk Phos 77 AST 29 ALT 28 Historical Provider EXTERNAL LAB [facility] BEEBE documented in this encounter Visit Diagnoses Not on filedocumented in this encounter Care Teams Fixture Designer Relationship Specialty Start Date End Date Nicolasa Prince APRN [address] [address] PCP - General Family Medicine 01/08/21 documented as of this encounter
--- OUTSIDE RECORDS SUMMARY | 2023-11-16 15:09 | XMS_ITS | Encounter Summary ---
Author Organization [facility] [place] [address] Care Team Providers Care Resource Management Planner Name Role Phone Nicolasa Prince YULIA Primary Care Provider +1- [phone] Reason for Visit * Auth/Cert (Routine) Specialty [...] GI ENDOSCOPY COLONOSCOPY, DIAGNOSTIC Elin Carlson MD [facility] [place] [address] [facility] Referral ID Status Reason Start Date Expiration Date Visits Re quested Visits Authorized [id number] 1 1 Encounter Details Date Type Department Care Team (Late st Contact Info) Description 08/07/2022 2:00 PM EDT - 08/07/2022 3:00 PM EDT [place] [address] Elin Carlson MD [facility] [place] [address] EGD, UPPER GI ENDOSCOPY (WRVU 2.09) Social History Tobacco Use Types Packs/Day Years [...] Sign Reading Time Taken Comments Blood Pressure 149/86 08/07/2022 3:00 PM EDT Pulse 79 08/07/2022 3:00 PM EDT Temperature 36.5 ??C (97.7 ??F) 08/07/2022 1:44 PM ED T Respiratory Rate 17 08/07/2022 3:00 PM EDT Oxygen Saturation 96% 08/07/2022 3:00 PM EDT Inhaled Oxygen Concentration - - [...] the day after the test, use an tulc-rnx-dxeimhw spray or lozenges to numbyour throat. Warm [...] occurs, please contact your doctor. Please call [phone] before 8pm Mon-Fri with problems, questions, or concerns. If you call after 8pm or on weekends, call the Hospital at [phone] and ask for the Maintenance Technician 3Rd Shift hospital account liaison and the anodic operator will contact that person for you. [...] more? You can view health information on [email or web address], your personal patient account. Log in or sign up today. Content Version: 12.2 ?? [id number] [employer]. Care instructions adapted under license by [facility]. If you have questions about a medical condition or this instruction, always ask your healthcare professional. [employer] disclaims any warranty or liability for your [...] Diagnosis Code ??? Atherosclerotic heart disease of [place] coronary artery without angina pectoris I25.10 EXAM: [...] 2:57 PM EDT Colonoscopy, Flex, W/Control, Bleeding (61079) 08/07/2022 2:21 PM EDT Hepatic cirrhosis, unspecified hepatic cirrhosis type, unspecified whether ascites present Screening for colon cancer Colonoscpy, Flex, W/Dir Submuc Inject (94597) 08/07/2022 2:21 PM EDT Hepatic cirrhosis, unspecified hepatic cirrhosis type, unspecified whether ascites present Screening for colon cancer Colonoscopy, Remv Lesn, Snare (52064) 08/07/2022 2:21 PM EDT Hepatic cirrhosis, unspecified hepatic cirrhosis type, unspecified whether ascites present Screening for colon cancer Upper GI Endoscopy, Diagnostic (68081) 08/07/2022 2:21 PM EDT Hepatic cirrhosis, unspecified hepatic cirrhosis type, unspecified whether ascites present Screening for colon cancer UPPER GI ENDOSCOPY Routine 08/07/2022 2: 10 PM EDT COLONOSCOPY Routine 08/07/2022 2:10 PM EDT documented in this encounter Results * Specimen to Pathology (08/07/2022 3:25 PM EDT) AP Specimen 08/07/2022 3:25 PM EDT 08/07/2022 3:25 PM EDT Narrative [facility] - 08/07/2022 3:25 PM EDT Specimen requisition ordered. ??Separate Pathology report to follow Elin Carlson MD PATHOLOGY/CYTOLOGY O MEENU Performing Organization Address [facility] Co de Phone Number [facility] [place] [address] * Specimen to Pathology (08/07/2022 3:25 PM EDT) AP Specimen 08/07/2022 3:25 PM EDT 08/07/2022 3:25 PM EDT Narrative [facility] - 08/07/2022 3:25 PM EDT Specimen requisition ordered. ??Separate Pathology report to follow Elin Carlson MD PATHOLOGY/CYTOLOGY O RDMILLIE Performing Organization Address [facility] [place] [place] [address] * Surgical Pathology Report (08/07/2022 2:57 PM EDT) Surgical Pathology Report [id number] ? Location: 4T; EA12; A The signing [...] Arpit Verified: ??08/26/2022 16:10 ??Pathologist Performed at: ??-[facility] Dept. of Pathology, [place] [address] Group Fitness Assistant Department Head: Stefan Min MD, FCAP, ??CLIA Certificate: [id number] SPECIMEN(S) SUBMITTED A - transverse colon polyp, [...] toto ??in 2 cassettes labeled B1-B2. ??shb [facility] 08/07/2022 2:57 PM EDT Elin Carlson MD PATHOLOGY/CYTOLOGY O RDERACAMERON ELIN [facility] [address] * UPPER GI ENDOSCOPY (08/07/2022 2:10 PM EDT) [facility] UPPER GI ENDOSCOPY [facility] Endoscopy Procedure Date: 08/07/2022 2:10 PM ? Patient Name: Cookie Salgado ? Date of : 1950 ? Age: 71 ? Order #: [id number] ? Instrument Name: [id number] ? Procedure: ? Upper GI endoscopy Indications: [...] PROVATION 08/07/2022 2:10 PM EDT Nicolasa Prince INJECTION MOLDING MACHINE SETTER GENERAL SURGICAL O RDERABLES PROVATION * COLONOSCOPY (08/07/2022 2:10 PM EDT) COLONOSCOPY [facility] Endoscopy Procedure Date: 08/07/2022 2:10 PM ? Patient Name: Cookie Salgado ? Date of : 1950 ? Age: 71 ? Order #: [id number] ? Instrument Name: [id number] ? Procedure: ? Colonoscopy Indications: ? Screening for colorectal malignant ? neoplasm Providers: ? Elin Carlson MD, Leticia Bolton ? Damon Ca MD: ?Nicolasa H. Chute Medicines: ? Midazolam 2 mg IV, Fentanyl [...] ? was evaluated using the BBPS ? ([place] Bowel Preparation Scale) ? with scores of: [...] Procedure Code(s): ? --- Professional --- ? 40145, Colonoscopy, flexible; with ? endoscopic mucosal resection ? 82277, 59, Colonoscopy, flexible; ? with removal of tumor(s), polyp(s), ? or other lesion(s) by snare ? technique CPT copyright 2021 [employer]. All rights reserved. The codes documented in this report are preliminary and upon well puller head review may be revised to meet current compliance requirements. Attending Participation: ? I personally performed the entire procedure. ? Eiln Carlson MD _ Elin Carlson MD 08/07/2022 3:40:14 PM This report has been signed electronically. Number of Addenda: 0 Note Initiated On: 08/07/2022 2:10 PM PROVATION 08/07/2022 2:10 PM EDT Nicolasa Prince APRN GENERAL SURGICAL O RDERABLES PROVATION documented in this encounter Visit Diagnoses Diagnosis Hepatic cirrhosis, unspecified hepatic cirrhosis type, unspecified whether ascites present Screening for colon cancer Special screening for malignant neoplasms, colon documented in this encounter Administered Medications Inactive Administered Medications - up to 3 most recent administrations Medication Order MAR Action Action Date Dose Rate Site benzocaine (Hurricane One) 20% spray (restricted to macy-procedural use) ONCE PRN, Starting on Wed08/07/22 at 1428, Until Wed08/07/22 at 1814, Intra-Operative (Intra-Procedure) Given 08/07/2022 2:28 PM EDT 1 spray fentaNYL (pf) (50 mcg/mL) multi-dose injection ONCE PRN, Starting on Wed08/07/22 at 1424, Until Wed08/07/22 at 1814, Intra-Operative (Intra-Procedure), Routine Given 08/07/2022 2:42 PM EDT 50 mcg Given 08/07/2022 2:31 PM EDT 50 mcg Given 08/07/2022 2:27 PM EDT 50 mcg lactated ringers infusion 100 mL/hr, Intravenous, CONTINUOUS, Starting on Wed08/07/22 at 1400, Until Wed08/07/22 at 1558, Endoscopy (Day of Procedure) New Bag 08/07/2022 1:50 PM EDT 100 mL/hr 100 mL/hr midazolam (pf) (Versed) (1 mg/mL) multi-dose injection ONCE PRN, Starting on Wed08/07/22 at 1424, Until Wed08/07/22 at 1814, Intra-Operative (Intra-Procedure), Routine Given 08/07/2022 2:50 PM EDT 1 mg Given 08/07/2022 2:42 PM EDT 1 mg Given 08/07/2022 2:31 PM EDT 1 mg documented in this encounter Active and Recently [...] Leticia Ca RN)1427 (Given - Provider: Leticia Ca, RN)1431 (Given - Provider: Leticia Ca RN)1442 (Given - Provider: Leticia Ca, RN) midazolam (pf) (Versed) (1 mg/mL) multi-dose injection (CANCELED) ONCE PRN, Starting on Wed08/07/22 at 1424, Until Wed08/07/22 at 1814, Intra-Operative (Intra-Procedure), Routine 1424 (Given - Provid er: Leticia Ca RN)1427 (Given - Provider: Leticia Ca RN)1431 (Given - Provider: Leticia Ca, RN)1442 (Given - Provider: Leticia Ca, RN)1450 (Given - Provider: Leticia Ca, RN) documented in this encounter Care Teams Resource Management Planner Relationship Specialty Start Date End Date Nicolasa Prince APRN [address] [address] PCP - General Family Medicine 01/08/21 documented as of this encounter
--- OUTSIDE RECORDS SUMMARY | 2023-11-16 15:09 | XMS_ITS | Encounter Summary ---
Author Organization [facility] [place] [address] Care Team Providers Care Tractor Operator Helper Name Role Phone Nicolasa Prince APRN Primary Care Provider +1- [phone] Encounter Details Date Type Department Care Team (Latest Contact Info) Description 08/17/2022 Travel Social History Tobacco Use Types Packs/Day [...] on filedocumented in this encounter Care Teams Tractor Operator Helper Relationship Specialty Start Date End Date Nicolasa Prince APRN [address] [place] [address] PCP - General Family Medicine 01/08/21 documented as of this encounter
--- OUTSIDE RECORDS SUMMARY | 2023-11-16 15:09 | XMS_ITS | Encounter Summary ---
Author Organization [facility] [place] [address] Care Team Providers Care Legislative Analyst Name Role Phone Nicolasa Prince APRN Primary Care Provider +1- [phone] Encounter Details Date Type Department Care Team (Late st Contact Info) Description 11/30/2022 External Results [place] [address] Irene Lara MD [facility] [place] [address] Social History Tobacco Use Types Packs/Day Years [...] LAB CBC CMP THYROID RESULTS PANEL Routine 11/27/2022 documented in this encounter Results * CBC / CMP / Thyroid External Results (11/27/2022) WBC 3.11 RBC 5.14 Hemoglobin 16.1 Hematocrit 47.8 MCV 93.0 Platelets 132 Sodium 140 Potassium 4.5 Chloride 104 CO2 29 BUN 30 Creatinine 1.1 Estimated GFR 54.39 Glucose Lvl 172 Calcium 9.7 Total Protein 7.7 Albumin 3.6 Total Bilirubin 0.8 Alk Phos 93 AST 27 ALT 28 Historical Provider EXTERNAL LAB [place] BEEBE documented in this encounter Visit Diagnoses Not on filedocumented in this encounter Care Teams Legislative Analyst Relationship Specialty Start Date End Date Nicolasa Prince APRN [address] [address] PCP - General Family Medicine 01/08/21 documented as of this encounter
--- OUTSIDE RECORDS SUMMARY | 2023-11-16 15:09 | XMS_ITS | Encounter Summary ---
Author Organization [facility] Address [facility] [place] [address] Care Team Providers Care Nike Athlete Name Role Phone Nicolasa Prince YULIA Primary Care Provider +1- [phone] Encounter Details Date Type Department Care Team (Latest Contact Info) Description 02/10/2022 9:51 AM EDT - 02/10/2022 11:59 PM EDT Hospital En[place] [phone] Carolynn Lamar MD [facility] [place] [address] Primary biliary cholangitis; Hepatic cirrhosis, unspecified hepatic [...] Tablet Take 325 mg by mouth daily. azaTHIOprine (Imuran) 50 mg Tablet Take 1 tablet by mouth daily. 90 tablet 3 02/10/2022 09/28/2023 Ursodiol (ACTIGALL) 500 mg Tablet Take 1 tablet by mouth 2 times daily. 180 tablet 3 07/22/2021 07/20/2022 fenofibrate (TRICOR) 145 mg Tablet Take 1 tablet by mouth daily. 90 tablet 3 07/22/2021 09/15/2022 Jardiance 25 mg Tablet 01/22/202109/27 Tradjenta 5 mg Tablet 01/22/20212023 documented as of this encounter Plan of Treatment Not on file documented as of this encounter Procedures Procedure Name Priority Date/Time Associated Diagnosis Comments US ABDOMEN LIMITED HEPATOLOGY PROTOCOL Routine 02/10/2022 10:19 AM EDT Primary biliary cholangitis Hepatic cirrhosis, unspecified hepatic cirrhosis type, unspecified whether ascites present documented in this encounter Results * US Abdomen Limited Hepatology Protocol (02/10/2022 10:19 AM EDT) Anatomical Region Laterality Modality Abdomen Ultrasound 02/10/2022 10:1 8 AM EDT Impressions 02/10/2022 10:39 AM EDT 1. ??Hepatomegaly with diffuse markedly heterogeneous liver parenchyma, consistent with known cirrhosis. Sonographic diagnostic sensitivity is limited by the heterogeneity of the hepatic parenchyma. Within this limitation, no visualized focal hepatic lesion. 2. ??No intra-abdominal ascites. 3. ??No cholelithiasis or biliary ductal dilatation. Electronically signed by: Fiordaliza Fabian MD, [facility] ([phone]), at 02/10/2022 10:32 AM Thank you for letting us participate in the care of this patient. If you are a health care provider and have any questions regarding this report, please contact the number above. For patients who have questions, please contact the health team primary care physician that requested your imaging first. ? Fiordaliza Fabian, Staff Physician Electronically Signed Final Report ?? 02/10/2022 10:39 am Narrative 02/10/2022 10:39 AM EDT Abdominal ? (Signed Final 02/10/2022 10:39 am) PATIENT INFO: ID #: ? [id number] ?: ??[birth year] (71 yrs)(F) Name: ? PREMA SALGADO ?Visit Date: 02/10/2022 10:18 am PERFORMED BY: Performed By: ? Sarahi Flores RDMS Attending: ?Caren LUTHER, Fiordaliza Prado Referred By: ?CAROLYNN LAMAR Location: ? [place] SERVICE(S) PROVIDED: [facility] - Hepatology Protocol - Abdominal ?91921 Limited Survey Single Organ or Quadrant - [id number] INDICATIONS: Cirrhosis, screen for HCC COMPARISON: MRI abdomen 07/22/2021 ------ LIVER: ------ Right Lobe Length: ?? 20.7 ?? cm Echogenicity/Echotexture: ?? Markedly heterogeneous ? parenchyma with capsular ? nodularity Portal Veins: ?Main PV hepatopetal where interrogated Comment: ?No visualized focal lesion. GALLBLADDER: Cholelithiasis: ?No stones visualized Wall Thickness: ?Normal wall thickness Focal Tenderness: ?Negative sonographic Flores's sign BILIARY TRACT: Intrahepatic Ducts: ?? Normal Extrahepatic Ducts: ?? Normal where seen Common Duct Size: ? 2.0 ? mm FLUID COLLECTIONS: Ascites not present on 4 quadrant evaluation. Procedure Note Fiordaliza Fabian MD - 02/10/2022 Abdominal (Signed Final 02/10/2022 10:39 am) PATIENT INFO: ID #: [id number] : 54 (71 yrs)(F) Name: PREMA SALGADO Visit Date: 02/10/2022 10:18 am PERFORMED BY: Performed By: Sarahi Flores RDMS Attending: Fiordaliza Fabian MD Referred By: CAROLYNN LAMAR Location: [place] [facility] Hep[facility] Protocol - Abdominal 49005 Limited Survey Single Organ or Quadrant - [id number] INDICATIONS: Cirrhosis, screen for HCC COMPARISON: MRI abdomen 07/22/2021 ------ LIVER: ------ Right Lobe Length: 20.7 cm Echogenicity/Echotexture: Markedly heterogeneous parenchyma with capsular nodularity Portal Veins: Main PV hepatopetal where interrogated Comment: No visualized focal lesion. GALLBLADDER: Cholelithiasis: No stones visualized Wall Thickness: Normal wall thickness Focal Tenderness: Negative sonographic Flores's sign BILIARY TRACT: Intrahepatic Ducts: Normal Extrahepatic Ducts: Normal where seen Common Duct Size: 2.0 mm FLUID COLLECTIONS: Ascites not present on 4 quadrant evaluation. IMPRESSION 1. Hepatomegaly with diffuse markedly heterogeneous liver parenchyma, consistent with known cirrhosis. Sonographic diagnostic sensitivity is limited by the heterogeneity of the hepatic parenchyma. Within this limitation, no visualized focal hepatic lesion. 2. No intra-abdominal ascites. 3. No cholelithiasis or biliary ductal dilatation. Electronically signed by: Fiordaliza Fabian MD, [facility] ([phone]), at 02/10/2022 10:32 AM Thank you for letting us participate in the care of this patient. If you are a health care provider and have any questions regarding this report, please contact the number above. For patients who have questions, please contact the health team primary care physician that requested your imaging first. Fiordaliza Fabian, Staff Physician Electronically Signed Final Report 02/10/2022 10:39 am Carolynn Lamar MD IMG US GEN ORDERABLE S documented in this encounter Visit Diagnoses Diagnosis Primary biliary cholangitis Hepatic cirrhosis, unspecified hepatic cirrhosis type, unspecified whether ascites present documented in this encounter Care Teams Nike Athlete Relationship Specialty Start Date End Date Suresh Nicolasa Chan, YULIA [address] [place] [address] PCP - General Family Medicine 01/08/21 documented as of this encounter
--- OUTSIDE RECORDS SUMMARY | 2023-11-16 15:09 | XMS_ITS | Encounter Summary ---
Author Organization [facility] [address] Care Team Providers Care Advanced Manufacturing Associate Name Role Phone Nicolasa Prince APRN Primary Care Provider +1- [phone] Reason for Visit * Reason Comments Medication Refill Encounter Details Date Type Department Care Team (Late st Contact Info) Description 10/15/2022 [place] [address] Irene Lara MD [facility] DR [place]STRO[place] [address] Autoimmune hepatitis Social History Tobacco Use Types [...] hepatitis documented in this encounter Care Teams Advanced Manufacturing Associate Relationship Specialty Start Date End Date Nicolasa Prince APRN [address] [place] [address] PCP - General Family Medicine 01/08/21 documented as of this encounter
--- OUTSIDE RECORDS SUMMARY | 2023-11-16 15:09 | XMS_ITS | Encounter Summary ---
Author Organization [facility] [place] [address] Care Team Providers Care Dry Wall Installer Name Role Phone Nicolasa Prince APRN Primary Care Provider +1- [phone] Reason for Visit * Reason Comments Medication Refill Encounter Details Date Type Department Care Team (Late st Contact Info) Description 12/14/2022 [place] [address] Irene Lara MD [facility] [place] [address] Autoimmune hepatitis Social History Tobacco Use Types [...] hepatitis documented in this encounter Care Teams Dry Wall Installer Relationship Specialty Start Date End Date Nicolasa Prince APRN [address] [place] [address] PCP - General Family Medicine 01/08/21 documented as of this encounter
--- OUTSIDE RECORDS SUMMARY | 2023-11-16 15:09 | XMS_ITS | Encounter Summary ---
Author Organization [facility] Address [facility] [address] Care Team Providers Care Tool Design Checker Name Role Phone Nicolasa Prince APRN Primary Care Provider +1- [phone] Encounter Details Date Type Department Care Team (Late st Contact Info) Description 12/02/2022 Telephone [place] [phone] Irene Lara MD [facility] [place] [address] Social History Tobacco Use Types Packs/Day Years [...] Telephone Encounter - Irene Lara MD - 12/02/2022 10:02 AM EDT I called pt regarding recent labs. Labs are stable. We had discussed cutting azathioprine to 25mg with aim to discontinue if labs normal after 3 months. She accidentally cut the fenofibrate in half and not the azathioprine. Plan: Go back on the 145mg of fenofibrate. Cut azathioprine to 25mg/day. Repeat labs monthly. Irene Lara MD Section of Gastroenterology & Hepatology [address] [place] [address] documented in this encounter Plan of Treatment Not on file documented as of this encounter Visit Diagnoses Not on filedocumented in this encounter Care Teams Tool Design Checker Relationship Specialty Start Date End Date Nicolasa Prince APRN [address] [place] [address] PCP - General Family Medicine 01/08/21 documented as of this encounter
--- OUTSIDE RECORDS SUMMARY | 2023-11-16 15:09 | XMS_ITS | Encounter Summary ---
Author Organization [facility] Address [facility] [place] [address] Care Team Providers Care Sausage Stuffer Name Role Phone Nicolasa Prince YULIA Primary Care Provider +1- [phone] Encounter Details Date Type Department Care Team (Latest Contact Info) Description 03/30/2023 9:10 AM EST - 03/30/2023 11:[address] [facility] Hospital En[place] [phone] Carolynn Lamar MD [facility] [place] [address] Primary biliary cholangitis; Hepatic cirrhosis, unspecified hepatic [...] Sig Dispensed Refills Start Date End Date fenofibrate (Tricor) 145 mg tabletIndications:Autoi mmune hepatitis [...] daily. Rybelsus 3 mg tablet 10/30/2022 024 Ursodiol (Bridgette Forte) 500 mg tabletIndications:Autoi mmune [...] Comments US ABDOMEN LIMITED HEPATOLOGY PROTOCOL Routine 03/30/2023 9:54 AM EST Primary biliary cholangitis Hepatic cirrhosis, unspecified hepatic cirrhosis type, unspecified whether ascites present documented in this encounter Results * US Abdomen Limited Hepatology Protocol (03/30/2023 [...] who have questions, please contact the health childcare center administrator that requested your imaging first. ? Ke Jay, Staff Physician Electronically Signed Final Report ?? 03/30/2023 12:27 pm Narrative 03/30/2023 12:28 PM EST Abdominal ? (Signed Final 03/30/2023 12:27 pm) PATIENT INFO: ID #: ? [id number] ?: ??[birth year] (72 yrs)(F) Name: ? PREMA SALGADO ?Visit Date: 03/30/2023 09:52 am PERFORMED BY: Attending: ?Pierre LUTHER, Ke Conklin Resident: ? Joseph LUTHRE, Ada Barrow Performed By: ? Elba Milian RDMS Referred By: ?CAROLYNN LAMAR Location: ? [place] SERVICE(S) PROVIDED: [facility] - Hepatology Protocol - Abdominal ?57908 Limited Survey Single Organ or Quadrant - [id number] INDICATIONS: cirrhosis, screen for hcc COMPARISON: US: [...] 03/30/2023 12:27 pm) PATIENT INFO: ID #: [id number] : 54 (72 yrs)(F) Name: PREMA SALGADO Visit Date: 03/30/2023 09:52 am PERFORMED BY: Attending: Ke Jay MD Resident: Ada Ruiz MD Performed By: Elba Milian RDMS Referred By: CAROLYNN LAMAR Location: [place] [facility] - Hepatology Protocol - Abdominal 78127 Limited Survey Single Organ or Quadrant - [id number] INDICATIONS: cirrhosis, screen for hcc COMPARISON: US: [...] who have questions, please contact the health childcare center administrator that requested your imaging first. eK Jay, Staff Physician Electronically Signed Final Report 03/30/2023 12:27 pm Carolynn Lamar MD IMG GEN ORDERABLE S documented in this encounter Visit Diagnoses Diagnosis Primary biliary cholangitis Hepatic cirrhosis, unspecified hepatic cirrhosis type, unspecified whether ascites present documented in this encounter Care Teams Sausage Stuffer Relationship Specialty Start Date End Date Nicolasa Prince APRN [address] [place] [address] PCP - General Family Medicine 01/08/21 documented as of this encounter
--- OUTSIDE RECORDS SUMMARY | 2023-11-16 15:09 | XMS_ITS | Encounter Summary ---
Author Organization [facility] [place] [address] Care Team Providers Care Cancer Program Consultant Name Role Phone Nicolasa Prince APRN Primary Care Provider +1- [phone] Encounter Details Date Type Department Care Team (Late Contact Info) Description 09/04/2021 Tele[place] [phone] Thania Wilson, RN Social History Tobacco Use Types Packs/Day Years Used Date Smoking Tobacco: Former Smokeless Tobacco: Never Sex and Gender Information Value Date Recorded Sex Assigned at Not on file Gender Identity Not on file Sexual Orientation Not on file documented as of this encounter Miscellaneous Notes * Telephone Encounter - Thania Wilson, RN - 09/04/2021 11:46 AM EDT ----- Message from Irene Lara MD sent at 09/03/2021 10:04 AM EDT ----- No [facility] account. AIH/PBC- recently cut azathioprine dose. Could you call her and ask to repeat labs in 4 weeks? Thanks irene 09/04 Called pt; had to leave [facility]. Nurse contact info provided. Need to confirm current aza dose. 09/18 Called pt; she is scheduled for 09/25 blood draw at her PCP. Will plan to request those results. documented in this encounter Plan of Treatment Not on file documented as of this encounter Visit Diagnoses Not on filedocumented in this encounter Care Teams Cancer Program Consultant Relationship Specialty Start Date End Date Nicolasa Prince, ACCOUNT ADMINISTRATOR [address] [place] [address] PCP - General Family Medicine 01/08/21 documented as of this encounter
--- OUTSIDE RECORDS SUMMARY | 2023-11-16 15:09 | XMS_ITS | Encounter Summary ---
Author Organization [facility] [place] [address] Care Team Providers Care Automobile Club Travel Counselor Name Role Phone Nicolasa Prince APRN Primary Care Provider +1- [phone] Reason for Visit * Auth/Cert (Routine) Specialty Diagnoses / Procedures Referred By Minh t Referred To Contact Diagnoses Encounter for screening for malignant neoplasm of colon 6 month Procedures PRO COLONOSCOPY, DIAGNOSTIC PRO COLONOSCOPY, BIOPSY PRO COLONOSCOPY, REMV LESN, SNARE PRO ANES, LWR INTESTINE, SCREENING COLONOSCOPY COLONOSCOPY,SCREENING (WRVU 3.26) Elin Carlson [place] [address] [facility] Referral ID Status Reason Start Date Expiration Date Visits Re quested Visits Authorized [id number] 1 1 Encounter Details Date Type Department Care Team (Late st Contact Info) Description 02/19/2023 1:45 PM EDT - 02/19/2023 2:30 PM EDT Surgery Gastroenterology at [facility] [place] [address] Elin Carlson [place] [address] COLONOSCOPY, POLYPECTOMY, REMOVAL LESION BY SNARE (WRVU 4.57) Social History Tobacco Use Types Packs/Day Years [...] Sign Reading Time Taken Comments Blood Pressure 125/62 02/19/2023 2:20 PM EDT Pulse 75 02/19/2023 2:25 PM EDT Temperature - - Respiratory Rate 17 02/19/2023 2:25 PM EDT Oxygen Saturation 95% 02/19/2023 2:25 PM EDT Inhaled Oxygen Concentration - - [...] occurs, please contact your Doctor. Please call [phone] before 8pm Mon-Fri with problems, questions or concerns. If you call after 8pm or on weekends, call the Hospital at [phone] and ask to speak to the Customer Service Representative Teller rn provider relations and the yarding and folding machine operator will contact that person for you. When should you call for help? Call [phone] anytime you think you may need emergency [...] After Visit Summary and more online at [email or web address] If you would like to provide feedback about your hospital experience, please call the Office of Patient and Family Relations at . If you have received this After Visit Summary in error, please immediately return it in person to the department, or notify the - Privacy Office by calling toll free at between the hours of 8AM and 5PM to arrange for our retrieval of the documents at no cost to you. Content Version: 12.2 ?? [id number] [employer]. Care instructions adapted under license by [facility]. If you have questions about a medical condition or this instruction, always ask your healthcare professional. [employer] disclaims any warranty or liability for your [...] Birthdate: 1950 Admit date: 02/19/2023 Attending Physician: lEin Carlson MD Gastroenterology and Hepatology Pre-Procedure History and Physical Exam Procedure: Colonoscopy: Indication: f/u piecemeal polypectomy Patient Active Problem List Diagnosis Code Atherosclerotic heart disease of [place] coronary artery without angina pectoris I25.10 EXAM: [...] PATHOLOGY Routine 02/19/2023 2:32 PM EDT Colonoscopy, Remmoses Ortiz, Snare ([id number]) 02/19/2023 1:54 PM EDT 6 month COLONOSCOPY Routine 02/19/2023 1:47 PM EDT documented in this encounter Results * Surgical Pathology Report (02/19/2023 2:32 PM EDT) Surgical Pathology Report [id number] ? Location: 4T; EA12; A The signing pathologist has (i) examined the relevant preparation(s) for the specimen(s) and (ii) rendered or confirmed the diagnosis(es). . ?Surgical Pathology DIAGNOSIS A - Ascending colon polyps 2mm, 1mm, resection: - ??Fragments of tubular adenoma. B - Rectal polyp 1mm, resection: - ??Hyperplastic polyp. CR-PX Electronically signed by: ?Per LUTHER, Arpit Verified: ??03/01/2023 16:31 ??Pathologist Performed at: ??-[facility], [place] [address] Multineedle Shirrer: Stefan Min MD, FCAP, ??CLIA Certificate: [id number] SPECIMEN(S) SUBMITTED A - ascending colon polyps [...] toto ??in 1 cassette labeled B1. ??sdy [facility] 02/19/2023 2:32 PM EDT Elin Carlson MD PATHOLOGY/CYTOLOGY O RDERACAMERON [facility] [place] [address] * Specimen to Pathology (02/19/2023 2:32 PM EDT) AP Specimen 02/19/2023 2:32 PM EDT 02/19/2023 2:32 PM EDT Narrative [facility] - 02/19/2023 2:32 PM EDT Specimen requisition ordered. ??Separate Pathology report to follow Elin Carlson MD PATHOLOGY/CYTOLOGY O MEENU Performing Organization Address [facility] [place] [address] * Specimen to Pathology (02/19/2023 2:32 PM EDT) AP Specimen 02/19/2023 2:32 PM EDT 02/19/2023 2:32 PM EDT Narrative [facility] - 02/19/2023 2:32 PM EDT Specimen requisition ordered. ??Separate Pathology report to follow Elin Carlson MD PATHOLOGY/CYTOLOGY Asad CORRIGAN Performing Organization Address [facility] [place] [address] * COLONOSCOPY (02/19/2023 1:47 PM EDT) COLONOSCOPY [facility] Endoscopy Procedure Date: 02/19/2023 1:47 PM ? Patient Name: Cookie Salgado ? Date of : 1950 ? Age: 72 ? Order #: [id number] ? Instrument Name: [id number] ? Procedure: ? Colonoscopy Indications: ? Follow-up [...] ? was evaluated using the BBPS ? (Fertile Bowel Preparation Scale) ? with scores of: [...] Procedure Code(s): ? --- Professional --- ? 22595, Colonoscopy, flexible; with ? removal of tumor(s), polyp(s), or ? other lesion(s) by snare technique CPT copyright 2021 [employer] [place] [employer]. All rights reserved. The codes documented in this report are preliminary and upon ob/gyn doctor review may be revised to meet current compliance requirements. Attending Participation: ? I personally performed the entire procedure. ? Elin Carlson MD _ Elin Carlson MD 02/19/2023 2:36:53 PM This report has been signed electronically. Number of Addenda: 0 Note Initiated On: 02/19/2023 1:47 PM [employer] 02/19/2023 1:47 PM EDT Nicolasa Prince INSURANCE CLAIMS REPRESENTATIVE GENERAL SURGICAL O RDERABLES Performing Organization Address City/State/[place] Co de Phone Number [employer] documented in this encounter Visit Diagnoses Not on filedocumented in this encounter Administered Medications Inactive Administered Medications - up to 3 most recent administrations Medication Order MAR Action Action Date Dose Rate Site fentaNYL (pf) (50 mcg/mL) multi-dose injection PRN, Starting on Wed02/19/23 at 1358, Until Wed02/19/23 at 1729, Intra-Operative (Intra-Procedure), Routine Given 02/19/2023 2:09 PM EDT 50 mcg Given 02/19/2023 2:04 PM EDT 50 mcg Given 02/19/2023 2:01 PM EDT 50 mcg midazolam (pf) (Versed) (1 mg/mL) multi-dose injection PRN, Starting on Wed02/19/23 at 1358, Until Wed02/19/23 at 1729, Intra-Operative (Intra-Procedure), Routine Given 02/19/2023 2:09 PM EDT 1 mg Given 02/19/2023 2:04 PM EDT 1 mg Given 02/19/2023 2:01 PM EDT 1 mg documented in this [...] RN) documented in this encounter Care Teams Automobile Club Travel Counselor Relationship Specialty Start Date End Date Nicolasa Prince, INSURANCE CLAIMS REPRESENTATIVE [address] [place] [address] PCP - General Family Medicine 01/08/21 documented as of this encounter
--- OUTSIDE RECORDS SUMMARY | 2023-11-16 15:09 | XMS_ITS | Encounter Summary ---
Author Organization [facility] [place] [address] Care Team Providers Care Home Energy Consultant Name Role Phone Nicolasa Prince APRN Primary Care Provider +1- [phone] Encounter Details Date Type Department Care Team (Latest Contact Info) Description 07/22/2021 Travel Social History Tobacco Use Types Packs/Day [...] on filedocumented in this encounter Care Teams Home Energy Consultant Relationship Specialty Start Date End Date Nicolasa Prince APRN [address] [place] [address] PCP - General Family Medicine 01/08/21 documented as of this encounter
--- OUTSIDE RECORDS SUMMARY | 2023-11-16 15:09 | XMS_ITS | Encounter Summary ---
Author Organization [facility] [place] [address] Care Team Providers Care Systems Manager Name Role Phone Nicolasa Prince APRN Primary Care Provider +1- [phone] Reason for Visit * Reason Comments Medication Refill Encounter Details Date Type Department Care Team (Late st Contact Info) Description 03/14/2023 [place] [address] Irene Lara MD [facility] [place] [address] Autoimmune hepatitis Social History Tobacco Use Types [...] hepatitis documented in this encounter Care Teams Systems Manager Relationship Specialty Start Date End Date Nicolasa Prince APRN [address] [place] [address] PCP - General Family Medicine 01/08/21 documented as of this encounter
--- OUTSIDE RECORDS SUMMARY | 2023-11-16 15:10 | XMS_ITS | Encounter Summary ---
[facility] Organization [facility] [place] [address] Care Team Providers Care Head Start Director Name Role Phone Nicolasa Prince APRN Primary Care Provider +1- [phone] Encounter Details Date Type Department Care Team (Late st Contact Info) Description 01/28/2021 Orders Only Cardiology at [address] [address] Kylah Arellano APRN [facility] [place] [place] [address] Atherosclerosis of hoh coronary artery without angina pectoris, unspecified whether hoh or transplanted heart Social History Tobacco Use Types Packs/Day Years Used Date Smoking Tobacco: Never Assessed Sex and Gender Information Value Date Recorded Sex Assigned at Not on file Gender Identity Not on file Sexual Orientation Not on file documented as of this encounter Progress Notes * Elin Breaux RN - 01/28/2021 8:29 AM EDT 12 lead EKG documented in this encounter Plan of Treatment Not on file documented as of this encounter Visit Diagnoses Diagnosis Atherosclerosis of hoh coronary artery without angina pectoris, unspecified whether hoh or transplanted heart documented in this encounter Care Teams Head Start Director Relationship Specialty Start Date End Date Nicolasa Prince APRN [address] [place] [address] PCP - General Family Medicine 01/08/21 documented as of this encounter
--- OUTSIDE RECORDS SUMMARY | 2023-11-16 15:10 | XMS_ITS | Encounter Summary ---
[place] [address] Care Team Providers Care Ticker Wirer Name Role Phone Nicolasa Prince YULIA Primary Care Provider +1- [phone] Encounter Details Date Type Department Care Team (Latest Contact Info) Description 07/22/2021 11:35 AM EDT Laboratory Appointment Lab [address] [place] [id number] Primary biliary cholangitis Social History Tobacco Use [...] Priority Date/Time Associated Diagnosis Comments HEMOGRAM Routine 07/22/2021 11:40 AM EDT Primary biliary cholangitis DIFFERENTIAL, AUTOMATED Routine 07/22/2021 11:40 AM EDT Primary biliary cholangitis HC ALPHA FETOPROTEIN TUMOR MARKER Routine 07/22/2021 11:40 AM EDT Primary biliary cholangitis HC PROTHROMBIN TIME Routine 07/22/2021 1 1:40 AM EDT Primary biliary cholangitis HC CBC,PLT & AUTO DIFF Routine 11:40 AM EDT Primary biliary cholangitis HEMOGLOBIN A1C Routine 07/22/2021 11:40 AM EDT COMPREHENSIVE METABOLIC PANEL (NON-FASTING) Routine 07/22/2021 11:40 AM EDT Primary biliary cholangitis documented in this encounter Results * (ABNORMAL) Hemoglobin A1c (07/22/2021 11:40 AM EDT) Hemoglobin A1C 9.4(H) 4.3 - 5.6 % [facility] Comment: Reference Range: 4.3 - [...] Mellitus, Diabetes Care 2013; 36: Suppl. 1, S67-42 Est Avg Gluc 222 mg/dL [facility] Comment: eAG equivalents for [...] into estimated average glucose values. ??Diabetes Care 2008:31(8):2757-7791. Blood Venous Draw / Unknown 07/22/2021 11:40 AM EDT 07/22/2021 2:17 PM EDT Narrative Resulting Agency Comment Spec In Lab Irene Lara MD CHEMISTRY ORDERABLES [facility] [place] [address] * Differential, Automated (07/22/2021 11:40 AM EDT) Neutrophils % 67.4 % [facility] Neutr Abs (ANC) 3.18 1.70 - 6.10 x10(3)/[facility] Lymphocytes % 22.0 % [facility] Lymphocytes Abs 1.0 0.9 - 3.2 x10(3)/[facility] Monocytes % 8.7 % [facility] Monocyte Abs 0.4 0.3 - 0.9 x10(3)/[facility] Eosinophils % 1.3 % [facility] Eosinophils Abs 0.1 0.0 - 0.4 x10(3)/[facility] Basophils % 0.4 % [facility] Basophils Abs 0.0 0.0 - 0.1 x10(3)/[facility] Immature Gran % 0.20 % [facility] Comment: Immature granulocytes(IG's)percentage and absolute count will include metamyelocytes, myelocytes, and promyelocytes. Blood smears from CBCs yielding IG's will be scanned manually for concordance. If this scan disagrees with the automated IG or if promyelocytes are noted, a manual differential will be performed. Sydnee Gran Abs 0.01 0.00 - 0.04 x10(3)/[facility] Blood 07/22/2021 11:4 0 AM EDT 07/22/2021 11:55 AM EDT Narrative Resulting Agency Comment Spec In Lab Irene Lara MD HEMATOLOGY ORDERABLE S [facility] [place] [address] * (ABNORMAL) Hemogram (07/22/2021 11:40 AM EDT) [facility] WBC 4.7 4.0 - 9.5 x10(3)/[facility] RBC 5.44(H) 4.00 - 5.21 x10(6)/[facility] Hemoglobin 16.8(H) 11.7 - 15.5 g/dL [facility] Hematocrit 49.7(H) 35.7 - 45.8 % [facility] MCV 91.4 82.6 - 94.4 [facility] MCH 30.9 27.1 - 32.0 pg [facility] MCHC 33.8 31.7 - 35.0 g/dL [facility] Platelets 141(L) 145 - 357 x10(3)/[facility] RDWSD 45.5 37.0 - 46.0 [facility] RDWCV 13.5 11.5 - 14.1 % [facility] MPV 10.8 7.6 - 12.9 [facility] nRBC % Auto 0.0 % [facility] nRBC Abs Auto 0.000 0.000 - 0.000 x10(3)/[facility] Blood 07/22/2021 11:4 0 AM EDT 07/22/2021 11:55 AM EDT Narrative Resulting Agency Comment Spec In Lab Irene Lara MD HEMATOLOGY ORDERABLE S [facility] [place] [address] * (ABNORMAL) Comprehensive metabolic panel (non-fasting) (07/22/2021 11:40 AM EDT) [facility] Glucose Lvl 156 65 - 199 mg/dL [facility] Comment:Diabetes: >=200 mg/d L plus symptoms BUN 23(H) 8 - 18 mg/dL [facility] Creatinine 0.88 0.70 - 1.20 mg/dL [facility] Sodium 135 135 - 145 mmol/L [facility] Potassium 4.4 3.5 - 5.0 mmol/L [facility] Comment: Please note: ??Patients with WBC >100,000 may have falsely elevated Potassium levels. ??For accurate Potassium quantification in these patients send serum separator tube (gold top) for subsequent determinations. ??Contact the Clinical Chemistry Laboratory if there are any questions. Chloride 104 98 - 107 mmol/L [facility] CO2 18(L) 22 - 31 mmol/L [facility] Anion Gap 13 5 - 15 mmol/L [facility] Calcium 10.0 8.5 - 10.5 mg/dL [facility] Total Protein 7.8 6.1 - 8.0 g/dL [facility] Albumin 4.5 3.2 - 5.2 g/dL [facility] AST 29 0 - 30 unit/L [facility] ALT 26 0 - 30 unit/L [facility] Alk Phos 89 35 - 105 unit/L [facility] Total Bilirubin 0.7 0.2 - 1.3 mg/dL [facility] Estimated GFR 68 >=60 mL/min/1. 73 m?? [facility] Comment: This patient? s estimated glomerular filtration rate (eGFR) is between 68 mL/min/1.73 m2 (patients with less muscle mass) and 78 mL/min/1.73 m2 (patients with more muscle mass) as determined by the CKD-EPI equation. Assessment of eGFR is not appropriate when creatinine concentrations are rapidly changing. For clinical decisions where creatinine clearance will affect therapy, a 24-hour urine creatinine clearance may be advised. Assignment of CKD stage 1 - 5 for patients with an eGFR near the transition point between stages may be based on clinical assessment of muscle mass and symptoms in addition to eGFR. Blood 07/22/2021 11:4 0 AM EDT 07/22/2021 11:55 AM EDT Narrative Resulting Agency Comment Spec In Lab Irene Lara MD CHEMISTRY ORDERABLES Performing Organization Address [facility] Co de Phone Number [facility] [place] [address] * AFP tumor marker (07/22/2021 11:40 AM EDT) AFP 3.4 <=8.3 ng/mL [facility] Blood 07/22/2021 11:4 0 AM EDT 07/22/2021 11:55 AM EDT Narrative Resulting Agency Comment Spec In Lab Irene Lara MD CHEMISTRY ORDERABLES Performing Organization Address [facility] Phone Number [facility] [place] [address] * Prothrombin Time (07/22/2021 11:40 AM EDT) PT 11.6 9.4 - 12.5 sec [facility] INR 1.0 [facility] Comment: An INR [...] be appropriate depending on clinical circumstances. Blood 07/22/2021 11:4 0 AM EDT 07/22/2021 11:55 AM EDT Narrative Resulting Agency Comment Spec In Lab Irene Lara MD HEMATOLOGY ORDERABLE S Performing Organization Address [facility] Co de Phone Number [facility] [place] [address] documented in this encounter Visit Diagnoses Diagnosis Primary biliary cholangitis documented in this encounter Care Teams Ticker Wirer Relationship Specialty Start Date End Date Nicolasa Prince, YULIA [address] [place] [id number] PCP - General Family Medicine 01/08/21 documented as of this encounter
--- OUTSIDE RECORDS SUMMARY | 2023-11-16 15:10 | XMS_ITS | Encounter Summary ---
Author Organization [facility] [place] [address] Care Team Providers Care Net Coordinator Name Role Phone Nicolasa Prince APRN Primary Care Provider +1- [phone] Encounter Details Date Type Department Care Team (Late st Contact Info) Description 07/22/2021 1:30 PM EDT Office [place] [address] Carolynn Lamar MD [facility] [place] [address] Primary biliary cholangitis; Type 2 diabetes mellitus without complication, without long-term current use of insulin; Hepatic cirrhosis, unspecified hepatic cirrhosis type, unspecified [...] Sign Reading Time Taken Comments Blood Pressure 127/60 07/22/2021 1:29 PM EDT Pulse 101 07/22/2021 1:29 PM EDT Temperature - - Respiratory Rate - - Oxygen Saturation - - Inhaled Oxygen Concentration - - Weight 99.8 kg (220 lb) 07/22/2021 1:29 PM EDT Height - - Body Mass Index - - documented in this encounter Progress Notes * Carolynn Lamar MD - 07/22/2021 1:30 PM EDT Gastroenterology and Hepatology Follow Up [...] Interval History: Prema Salgado is coming in today to 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 Her original diagnosis was made in [place] and she was managed by a behavioral health associate at . Her records were extensively reviewed today in care everywhere. She first started seeing Dr. Yasmin Woodson in 2012. At that time she had had the diagnosis of PBC for 4 years and liver tests had remained elevated. There was also suggestion of advanced fibrosis with decreasing platelets. She underwent a liver biopsy in 2012. 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 Based on persistent liver test elevations and this biopsy reading she was treated with prednisone 20 mg a day and azathioprine 50 mg a day. She had significant side effects to prednisone and alsothere did not appear to be any change [...] normalized. Her liver tests have been normal sinceapproximately 2017. She moved to [place] about a year ago. She is living with her 2 brothers and their house. Her primary care is managing diabetes. Her recent A1c was elevated to be above 8 and since then she has lost about 10 pounds. She was not eating well since her move and has improved her eating habits. She is generally feeling well. When we discussed her medications she admitted that she often only takes 50 mg of azathioprine rather than 75 as she misses the half tablet. Current Outpatient Medications Medication Sig Dispense Refill ??? cholecalciferol, Vitamin D3, 50 mcg (2,000 unit) Capsule Take by mouth. ??? losartan (Cozaar) 50 mg Tablet ??? Jardiance 25 mg Tablet ??? Tradjenta 5 mg Tablet ??? aspirin 325 mg Tablet Take 325 mg by mouth daily. ??? Ursodiol (ACTIGALL) 500 mg Tablet Take 1 tablet by mouth 2 times daily. 180 tablet 3 ??? azaTHIOprine (Imuran) 50 mg Tablet Take 1.5 tablets by mouth daily. 135 tablet 3 ??? fenofibrate (TRICOR) 145 mg Tablet Take 1 tablet by mouth daily. 90 tablet 3 No current facility-administered medications for this visit. Vitals: 07/22/21 1329 BP: 127/60 Pulse: (!) 101 Weight: 99.8 kg (220 lb) There is no height or weight on file to calculate BMI. Exam: Looks well Recent Results (from the past 24 hour(s)) Prothrombin Time Result Value Ref Range PT 11.6 9.4 - 12.5 sec INR 1.0 AFP tumor marker Result Value Ref Range AFP 3.4 <=8.3 ng/mL Comprehensive metabolic panel (non-fasting) Result Value Ref Range Glucose Lvl 156 65 - 199 mg/dL BUN 23 (H) 8 - 18 mg/dL Creatinine 0.88 0.70 - 1.20 mg/dL Sodium 135 135 - 145 mmol/L Potassium 4.4 3.5 - 5.0 mmol/L Chloride 104 98 - 107 mmol/L CO2 18 (L) 22 - 31 mmol/L Anion Gap 13 5 - 15 mmol/L Calcium 10.0 8.5 - 10.5 mg/dL Total Protein 7.8 6.1 - 8.0 g/dL Albumin 4.5 3.2 - 5.2 g/dL AST 29 0 - 30 unit/L ALT 26 0 - 30 unit/L Alk Phos 89 35 - 105 unit/L Total Bilirubin 0.7 0.2 - 1.3 mg/dL Estimated GFR 68 >=60 mL/min/1.73 m?? Hemogram Result Value Ref Range WBC 4.7 4.0 - 9.5 x10(3)/mcL RBC 5.44 (H) 4.00 - 5.21 x10(6)/mcL Hemoglobin 16.8 (H) 11.7 - 15.5 g/dL Hematocrit 49.7 (H) 35.7 - 45.8 % MCV 91.4 82.6 - 94.4 fL MCH 30.9 27.1 - 32.0 pg MCHC 33.8 31.7 - 35.0 g/dL Platelets 141 (L) 145 - 357 x10(3)/mcL RDWSD 45.5 37.0 - 46.0 fL RDWCV 13.5 11.5 - 14.1 % MPV 10.8 7.6 - 12.9 fL nRBC % Auto 0.0 % nRBC Abs Auto 0.000 0.000 - 0.000 x10(3)/mcL Differential, Automated Result Value Ref Range Neutrophils % 67.4 % Neutr Abs (ANC) 3.18 1.70 - 6.10 x10(3)/mcL Lymphocytes % 22.0 % Lymphocytes Abs 1.0 0.9 - 3.2 x10(3)/mcL Monocytes % 8.7 % Monocyte Abs 0.4 0.3 - 0.9 x10(3)/mcL Eosinophils % 1.3 % Eosinophils Abs 0.1 0.0 - 0.4 x10(3)/mcL Basophils % 0.4 % Basophils Abs 0.0 0.0 - 0.1 x10(3)/mcL Immature Gran % 0.20 % Sydnee Gran Abs 0.01 0.00 - 0.04 x10(3)/mcL Hemoglobin A1c Result Value Ref Range Hemoglobin A1C 9.4 (H) 4.3 - 5.6 % Est Avg Gluc 222 mg/dL MRI today: IMPRESSION No hepatic lesions. Nodular capsular contour with heterogeneous signal pattern, compatible cirrhotic change. Assessment and Plan: 70-year-old woman with history [...] disease might be more PBC than AIH. Given her increasing age which can be associated with decreased immunity I think we can safely decrease her azathioprine to 50 mg a day from 75. Recommendatios: Continue ursodiol 1000 mg/day, fenofibrate 145mg/day Decrease AZA to 50mg/day LFT's q 4 weeks after above azathioprine change Needs EGD for varices screening- will arrange GIF in six months, with US prior for HCC screening Time spent with patient: 40 min Time spent reviewing records, documentin min Carolynn Lamar MD Section of Gastroenterology & Hepatology [address] [place] [address] Cc: Nicolasa Prince APRN SURGICAL PATHOLOGY REPORT ? Patient: PREMA SALGADO ?MR #: [id number] ?Submitted by: Elie Moreno MD FINAL DIAGNOSIS [...] the ductules cannot be definitively distinguished from [place] bile ducts. ??There is patchy periportal hepatocellular [...] had a prior liver biopsy reviewed at [facility] (see accession number [id number]), although the slides are not available for [...] dilatation. Electronically signed by: Fiordaliza Fabian MD, [facility] ([phone]), at 02/10/2022 10:32 AM Thank you for letting us participate in the care of this patient. If you are a health care provider and have any questions regarding this report, please contact the number above. For patients who have questions, please contact the health rn care manager that requested your imaging first. ? Fiordaliza Fabian, Staff Physician Electronically Signed Final Report ?? 02/10/2022 10:39 am Narrative 02/10/2022 10:39 AM EDT Abdominal ? (Signed Final 02/10/2022 10:39 am) PATIENT INFO: ID #: ? [id number] ?: ??[birth year] (71 yrs)(F) Name: ? PREMA SALGADO ?Visit Date: 02/10/2022 10:18 am PERFORMED BY: Performed By: ? Sarahi Flores RDMS Attending: ?Caren LUTHER, Fiordaliza Prado Referred By: ?CAROLYNN HENSLEYR Location: ? [place] [facility] - Hepatology Protocol - Abdominal ?[id number] Limited Survey Single Organ or Quadrant - [id number] INDICATIONS: Cirrhosis, screen for HCC COMPARISON: MRI [...] 02/10/2022 10:39 am) PATIENT INFO: ID #: [id number] : [birth year] (71 yrs)(F) Name: PREMA SALGADO Visit Date: 02/10/2022 10:18 am PERFORMED BY: Performed By: Sarahi Flores RDMS Attending: Fiordaliza Fabian MD Referred By: CAROLYNN LAMAR Location: [place] SERVICE(S) PROVIDED: [facility] - Hepatology Protocol - Abdominal [id number] Limited Survey Single Organ or Quadrant - [id number] INDICATIONS: Cirrhosis, screen for HCC COMPARISON: MRI [...] dilatation. Electronically signed by: Fiordaliza Fabian MD, Radiology [place] ([phone]), at 02/10/2022 10:32 AM Thank you for letting us participate in the care of this patient. If you are a health care provider and have any questions regarding this report, please contact the number above. For patients who have questions, please contact the health rn care manager that requested your imaging first. Fiordaliza Fabian, Staff Physician Electronically Signed Final Report 02/10/2022 10:39 am Carolynn Lamar MD IMG US GEN ORDERABLE S * Prothrombin Time (07/22/2021 11:40 AM EDT) PT 11.6 9.4 - 12.5 sec [facility] INR 1.0 [facility] Comment: An INR <2.0 indicates [...] Comment Spec In Lab Carolynn Lamar MD HEMATOLOGY ORDERABLE S Performing Organization Address [facility] Co de Phone Number [facility] [place] [address] * AFP tumor marker (07/22/2021 11:40 AM EDT) AFP 3.4 <=8.3 ng/mL [facility] Blood 07/22/2021 11:4 0 AM EDT 07/22/2021 11:55 AM EDT Narrative Resulting Agency Comment Spec In Lab Carolynn Lamar MD CHEMISTRY ORDERABLES Performing Organization Address [facility]/ZIP Co de Phone Number [facility] [place] [address] * (ABNORMAL) Comprehensive metabolic panel (non-fasting) (07/22/2021 11:40 AM EDT) Glucose Lvl 156 65 - 199 mg/dL [facility] Comment:Diabetes: >=200 mg/d L plus symptoms BUN 23(H) 8 - 18 mg/dL [facility] Creatinine 0.88 0.70 - 1.20 mg/dL [facility] Sodium 135 135 - 145 mmol/L [facility] Potassium 4.4 3.5 - 5.0 mmol/L [facility] Comment: Please note: ??Patients with WBC >100,000 may have falsely elevated Potassium levels. ??For accurate Potassium quantification in these patients send serum separator tube (gold top) for subsequent determinations. ??Contact the Clinical Chemistry Laboratory if there are any questions. Chloride 104 98 - 107 mmol/L [facility] CO2 18(L) 22 - 31 mmol/L [facility] Anion Gap 13 5 - 15 mmol/L [facility] Calcium 10.0 8.5 - 10.5 mg/dL [facility] Total Protein 7.8 6.1 - 8.0 g/dL [facility] Albumin 4.5 3.2 - 5.2 g/dL [facility] AST 29 0 - 30 unit/L [facility] ALT 26 0 - 30 unit/L [facility] Alk Phos 89 35 - 105 unit/L [facility] Total Bilirubin 0.7 0.2 - 1.3 mg/dL [facility] Estimated GFR 68 >=60 mL/min/1. 73 m?? [facility] Comment: This patient? s estimated [...] Lamar MD CHEMISTRY ORDERABLES Performing Organization Address City/State/[facility] Co de Phone Number [facility] [place] [address] documented in this encounter Visit Diagnoses Diagnosis Primary biliary cholangitis Type 2 diabetes mellitus without complication, without long-term current use of insulin Hepatic cirrhosis, unspecified hepatic cirrhosis type, unspecified whether ascites present Primary biliary cholangitis Hepatic cirrhosis, unspecified hepatic cirrhosis type, unspecified whether ascites present documented in this encounter Care Teams Net Coordinator Relationship Specialty Start Date End Date Nicolasa Prince APRN [address] [place] [id number] PCP - General Family Medicine 01/08/21 documented as of this encounter
--- OUTSIDE RECORDS SUMMARY | 2023-11-16 15:10 | XMS_ITS | Encounter Summary ---
[place] [address] Care Team Providers Care Water Treatment Plant Mechanic Name Role Phone Nicolasa Prince APRN Primary Care Provider +1- [phone] Reason for Referral * Diagnostic Test (Routine) - Closed Specialty Diagnoses / Procedures Referred By Minh miguel Referred To Contact Radiology Diagnoses Primary biliary cholangitis Procedures MRI Abdomen wwo Contrast (Generic) Harmony Dobson APRN [facility] [place] [address] [place] [address] Referral ID Status Reason Start Date Expiration Date V isits Requested Visits Authorized [id number] Closed Specialty Service Requested 02/19/2021 08/20/2022 1 1 Reason for Visit * Reason Comments GI Problem * Consultation (Routine) - Closed Specialty Diagnoses / Procedures Referred By Minh miguel Referred To Contact Gastroenterology Diagnoses Primary biliary cirrhosis Primary biliary cirrhosis Nicolasa Prince APRN [address] [place] [address] [facility] [address] [place] [address] Referral ID Status Reason Start Date Expiration Date V isits Requested Visits Authorized [id number] Closed Consult, [facility] PCP Updated and/or Approved 12/25/2020 06/27/2021 6 6 Encounter Details Date Type Department Care Team (Late st Contact Info) Description 02/19/2021 9:00 AM EDT Office [place] [id number] Harmony Dobson APRN [facility] [place] [address] Primary biliary cholangitis; Hepatic cirrhosis, unspecified hepatic cirrhosis type, unspecified whether ascites present; Autoimmune hepatitis; Screening for colon cancer Social History Tobacco Use Types Packs/Day Years Used Date Smoking Tobacco: Former Smokeless Tobacco: Never Sex and Gender Information Value Date Recorded Sex Assigned at Not on file Gender Identity Not on file Sexual Orientation Not on file documented as of this encounter Last Filed Vital Signs Vital Sign Reading Time Taken Comments Blood Pressure 152/72 02/19/2021 8:51 AM EDT Pulse 83 02/19/2021 8:51 AM EDT Temperature - - Respiratory Rate - - Oxygen Saturation - - Inhaled Oxygen Concentration - - Weight 101.7 kg (224 lb 1.6 oz) 02/19/2021 8:51 AM EDT Height - - Body Mass Index - - documented in this encounter Progress Notes * Harmony Dobson APRN - 02/19/2021 9:00 AM EDT HEPATOLOGY NEW PATIENT CONSULTATION Cookie Salgado 1950 [employer]IL[employer] SUPERVISOR: HARMONY DOBSON APRN PCP: Nicolasa Prince APRN Requesting Provider: REASON FOR CONSULTATION Primary biliary cholangitis, AIH, cirrhosis transfer of care HISTORY OF PRESENT ILLNESS Cookie Salgado is a 70 y.o. year old female with history of Primary biliary cholangitis who presents today to establish care for her PBC. She was previously followed by hepatology in [place] and recently moved to [place]. She was last followed by GI at [facility] - Dr. Yasmin Fletcher. Takes Ursodiol 500mg BID. Used to take 3 times per day, but then went down to 1000/day. 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 She has had 2 liver biopsies done, one in 2008 and one in 2012. Her second liver biopsy showed stage 3 fibrosis and subsequent imaging studies have shown cirrhosis, so she has been followed as though she has cirrhosis. She [place] to [place] at end of October 2020. She is living in the [facility] with her brother and has had anumber of problems fixing up her house. She had a colonoscopy done 5 year ago. She states she was getting imaging of her liver once a year. GI Problem List PBC/ AIH - 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 Stage 2 fibrosis at that time. - Treated with Ursodiol - Repeat liver biopsy 03/2013 showed stage III fibrosis and PBC and AIH overlap. (unable to find path report, as reported by Dr. Woodson) - She was started on Prednisone and Azathioprine, quickly tapered off of Prednisone, continued on Aza 50mg. - EGD 09/01/2018: no varices, erosive gastristis. Recommendation to repeat in 3 years. - Transjugular liver biopsy 03/07/2013: 1. Transvenous (transjugular) liver biopsy with samples sent to surgical pathology for further analysis. 2. The indirectly measured portosystemic gradients were 5 mm Hg to the hepatic vein, 4 mm Hg to thehepatic inferior vena cava, and??8 mm Hg to the right atrium, which are within normal limits Liver tests normal since at least 2016 MRI Abdomen w contrast 11/29/2020: FINDINGS: Again seen is a cirrhotic liver with background steatosis. No arterially enhancing lesions with washout to suggest HCC. A few subcentimeter arterially enhancing foci are seen without T2 correlate or washout/pseudocapsule (LI-RADS 3). A independent sales representative lesion is seen on series 9 image 50 within segment 2 measuring 8 mm. No findings of biliary obstruction. Trace perihepatic ascites is seen. The vasculature is patent. Likely reactive enlarged periportal and peripancreatic lymph nodes are stable. There are stable bilateral simple appearing renal cysts and stable regions of cortical scarring. Spleen, adrenal glands, and pancreas appear unremarkable. No aggressive osseous lesions PAST MEDICAL/SURGICAL HISTORY Hypertension Diabetes - diagnosed 5 years ago. MEDICATIONS Outpatient Medications Marked as Taking for the 02/19/21 encounter (Office Visit) with Harmony Dobson APRN Medication Sig Dispense Refill ??? cholecalciferol, Vitamin D3, (cholecalciferol, Vitamin D3,) 50 mcg (2,000 unit) Capsule [facility]. ??? losartan (Cozaar) 50 mg Tablet ??? Ursodiol (ACTIGALL) 500 mg Tablet 1,000 mg. ??? Azasan 75 mg Tablet ??? Jardiance 25 mg Tablet ??? fenofibrate (TRICOR) 145 mg Tablet ??? Tradjenta 5 mg Tablet ALLERGIES Allergies Allergen Reactions ??? Amoxicillin ??? Ciprofloxacin ??? Egg Derived Other (See Comments) Also Egg ??? 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 Lives near 2 brothers. Alcohol: drinks a few times per month. FAMILY HISTORY No family hx of liver disease. PHYSICAL EXAM Vitals: 02/19/21 0851 BP: 152/72 Pulse: 83 Weight: 101.7 kg (224 lb 1.6 oz) There is no height or weight on file to calculate BMI. Gen: Well appearing, no apparent distress. Skin: no spider angiomata, no palmar erythema, no jaundice. HEENT: Sclerae anicteric, pupils equal, round, react to light. Pharynx unremarkable. Neck is supple, no adenopathy, no thyromegaly. Chest is clear. Heart: Regular rate and rhythm. Normal S1, S2, no murmurs. Abdomen: Normal bowel sounds; soft, non distended. No obvious hepatosplenomegaly. No evidence of ascites Extremities: No edema. Neuro: alert and oriented x3, no asterixis or tremor. MRI 11/29/2020: FINDINGS: Again seen is a cirrhotic liver with background steatosis. No arterially enhancing lesions with washout to suggest HCC. A few subcentimeter arterially enhancing foci are seen without T2 correlate or washout/pseudocapsule (LI-RADS 3). A independent sales representative lesion is seen on series 9 image 50 within segment 2 measuring 8 mm. No findings of biliary obstruction. Trace perihepatic ascites is seen. The vasculature is patent. Likely reactive enlarged periportal and peripancreatic lymph nodes are stable. There are stable bilateral simple appearing renal cysts and stable regions of cortical scarring. Spleen, adrenal glands, and pancreas appear unremarkable. No aggressive osseous lesions. IMPRESSION: Cirrhotic liver. No findings of HCC. Fibroscan Results: Median kPa: 15.3 kPa Mean IQR: 24% (goal is <30 %) Number of valid measurements: 14(at least 10 required) Number of invalid measurements: 1 Predicted fibrosis stage: F4, cirrhosis CAP (dB/m): 362 Estimated steatosis grade: 3/3 % hepatocytes affected: >66 % ASSESSMENT/PLAN Cookie Salgado is a 70 y.o. female with history of diabetes, hypertension, Primary biliary cholangitis/AIH overlap, MEDINA, and cirrhosis. She was previously followed by Dr. Yasmin Woodson at [facility] and has been on a relatively stable regimen of Ursodiol, Azathioprine, and Fenofibrate. Her liver tests have been normal since at least 2017, as far as I can gather from her prior records. Her last liver biopsy in 2012 showed stage 3 fibrosis, but her imaging shows a cirrhotic appearing liver and her fibroscan today is also consistent with cirrhosis. She recently had LR-3 lesions seen on her MRI, most recently on 11/29/2020. Plan to repeat an MRI 6 months from this MRI to continue surveillance of her liver. She is also due for a repeat EGD to screen for varices. Her last EGD in 2019 did not show any signsof varices. Plan: - MRI in 3 months to follow up on LR-3 lesions. - Follow up in [address] Lara or Dr. Carlson on day of MRI - Continue Ursodiol 1000mg/day, Azathioprine 50mg/day and Fenofibrate 145mg/day for PBC/AIH - Repeat EGD and colonoscopy for varices screening- will place orders today (to have done within 3-6 months) Harmony Dobson APRN Section of Gastroenterology [place] [address] Copy: Nicolasa Prince APRN [address] / [facility] [address] documented in this encounter Plan of Treatment Not on file documented as of this encounter Procedures Procedure Name Priority Date/Time Associated Diagnosis Comments HEMOGRAM Routine 02/19/2021 10:54 AM EDT Hepatic cirrhosis, unspecified hepatic cirrhosis type, unspecified whether ascites present DIFFERENTIAL, AUTOMATED Routine 02/19/2021 10:54 AM EDT Hepatic cirrhosis, unspecified hepatic cirrhosis type, unspecified whether ascites present HC ALPHA FETOPROTEIN TUMOR MARKER Routine 02/19/2021 10:54 AM EDT Hepatic cirrhosis, unspecified hepatic cirrhosis type, unspecified whether ascites present HC PROTHROMBIN TIME Routine 02/19/2021 1 0:54 AM EDT Hepatic cirrhosis, unspecified hepatic cirrhosis type, unspecified whether ascites present HC CBC,PLT & AUTO DIFF Routine 10:54 AM EDT Hepatic cirrhosis, unspecified hepatic cirrhosis type, unspecified whether ascites present HC VENIPUNCTURE Routine 02/19/2021 10:54 AM EDT Hepatic cirrhosis, unspecified hepatic cirrhosis type, unspecified whether ascites present COMPREHENSIVE METABOLIC PANEL (NON-FASTING) Routine 02/19/2021 10:54 AM EDT Hepatic cirrhosis, unspecified hepatic cirrhosis type, unspecified whether ascites present documented in this encounter Results * MRI Abdomen wwo Contrast (Generic) (07/22/2021 10:49 AM EDT) Anatomical Region Laterality Modality Abdomen Magnetic Resonan ce Impressions 07/22/2021 11:29 AM EDT No hepatic lesions. Nodular capsular contour with heterogeneous signal pattern, compatible cirrhotic change. Thank you for letting us participate in the care of this patient. ??If you are a health care provider and have any questions regarding this report, please contact the number below. ??For patients who have questions please contact the health summer child caregiver that requested your imaging first. ? Electronically signed by: Ramon Verduzco MD, [facility] ([phone]), at 07/22/2021 11:29 AM Narrative 07/22/2021 11:29 AM EDT EXAMINATION: MRI ABDOMEN WWO CONTRAST (GENERIC) CLINICAL HISTORY: Liver disease, chronic, tumor screening PBC and MEDINA cirrhosis, evaluate for hCC. Hx of LR-3 lesion seen on outside MRI TECHNIQUE: MRI of the abdomen was performed with images obtained prior to and following the intravenous administration of 20ml of Dotarem using the dynamic liver protocol. COMPARISONS: none FINDINGS: Prior hepatic interventions: None. Liver Morphology: Nodular capsular contour and heterogeneous signal, compatible with cirrhotic change. Focal hepatic lesions: No Portal Vein: Widely Patent. Varices: None. Ascites: None. Spleen: Normal size, no lesions. Bile ducts: Nondilated. Gallbladder: No gallstones. Normal caliber wall. Pancreas: Normal. Adrenals: Normal. Kidneys: Bilateral, varied sized cysts. No collecting system obstruction bilaterally. Aorta: No aneurysm. Lymph nodes: No enlarged lymph nodes. Bowel: Nondilated, no inflammatory changes. Marrow Signal: Normal. Procedure Note Ramon Verduzco MD - 07/22/2021 EXAMINATION: MRI ABDOMEN WWO CONTRAST (GENERIC) CLINICAL HISTORY: Liver disease, chronic, tumor screening PBC and MEDINA cirrhosis, evaluate for hCC. Hx of LR-3 lesion seen onoutside MRI TECHNIQUE: MRI of the abdomen was performed with images obtained prior toand following the intravenous administration of 20ml of Dotarem using thedynamic liver protocol. COMPARISONS: none FINDINGS: Prior hepatic interventions: None. Liver Morphology: Nodular capsular contour and heterogeneous signal,compatible with cirrhotic change. Focal hepatic lesions: No Portal Vein: Widely Patent. Varices: None. Ascites: None. Spleen: Normal size, no lesions. Bile ducts: Nondilated. Gallbladder: No gallstones. Normal caliber wall. Pancreas: Normal. Adrenals: Normal. Kidneys: Bilateral, varied sized cysts. No collecting system obstruction bilaterally. Aorta: No aneurysm. Lymph nodes: No enlarged lymph nodes. Bowel: Nondilated, no inflammatory changes. Marrow Signal: Normal. IMPRESSION No hepatic lesions. Nodular capsular contour with heterogeneous signalpattern, compatible cirrhotic change. Thank you for letting us participate in the care of this patient. If youare a health care provider and have any questions regarding this report,please contact the number below. For patients who have questions please contactthe health summer child caregiver that requested your imaging first. Electronically signed by: Ramon Verduzco MD, [facility]([phone]), at 07/22/2021 11:29 AM Harmony Dobson INSTALLATION HELPER IMG MRI ORDERABLES * Differential, Automated (02/19/2021 10:54 AM EDT) Neutrophils % 65.2 % [facility] Neutr Abs (ANC) 3.05 1.70 - 6.10 x10(3)/[facility] Lymphocytes % 23.9 % [facility] Lymphocytes Abs 1.1 0.9 - 3.2 x10(3)/[facility] Monocytes % 8.8 % [facility] Monocyte Abs 0.4 0.3 - 0.9 x10(3)/[facility] Eosinophils % 1.3 % [facility] Eosinophils Abs 0.1 0.0 - 0.4 x10(3)/[facility] Basophils % 0.6 % [facility] Basophils Abs 0.0 0.0 - 0.1 x10(3)/[facility] Immature Gran % 0.20 % [facility] Comment: Immature granulocytes(IG's)percentage and absolute count will include metamyelocytes, myelocytes, and promyelocytes. Blood smears from CBCs yielding IG's will be scanned manually for concordance. If this scan disagrees with the automated IG or if promyelocytes are noted, a manual differential will be performed. Sydnee Gran Abs 0.01 0.00 - 0.04 x10(3)/[facility] Blood 02/19/2021 10:5 4 AM EDT 02/19/2021 11:02 AM EDT Narrative Resulting Agency Comment Spec In Lab Harmony Dobson INSTALLATION HELPER HEMATOLOGY ORDERAB LES [facility] [place] [address] * (ABNORMAL) Hemogram (02/19/2021 10:54 AM EDT) [facility] Signature WBC 4.7 4.0 - 9.5 x10(3)/[facility] RBC 5.15 4.00 - 5.21 x10(6)/[facility] Hemoglobin 16.6(H) 11.7 - 15.5 g/dL [facility] Hematocrit 48.4(H) 35.7 - 45.8 % [facility] MCV 94.0 82.6 - 94.4 [facility] MCH 32.2(H) 27.1 - 32.0 pg [facility] MCHC 34.3 31.7 - 35.0 g/dL [facility] Platelets 146 145 - 357 x10(3)/[facility] RDWSD 46.0 37.0 - 46.0 [facility] RDWCV 13.3 11.5 - 14.1 % [facility] MPV 10.6 7.6 - 12.9 [facility] nRBC % Auto 0.0 % [facility] nRBC Abs Auto 0.000 0.000 - 0.000 x10(3)/[facility] Blood 02/19/2021 10:5 4 AM EDT 02/19/2021 11:02 AM EDT Narrative Resulting Agency Comment Spec In Lab Harmony Dobson INSTALLATION HELPER HEMATOLOGY ORDERAB LES [facility] [place] [address] * (ABNORMAL) Hemoglobin A1c (02/19/2021 10:54 AM EDT) Hemoglobin A1C 8.0(H) 4.3 - 5.6 % [facility] Comment: Reference Range: 4.3 - [...] Mellitus, Diabetes Care 2013; 36: Suppl. 1, S67-93 Est Avg Gluc 181 mg/dL [facility] Comment: eAG equivalents for HbA1c [...] into estimated average glucose values. ??Diabetes Care 2008:31(8):5304-1661. Blood 02/19/2021 10:5 4 AM EDT 02/19/2021 11:02 AM EDT Narrative Resulting Agency Comment Spec In Lab Harmony Dobson APRN CHEMISTRY ORDERABL ES Performing Organization Address [facility] Co de Phone Number [facility] [place] [address] * Prothrombin Time (02/19/2021 10:54 AM EDT) Pathologist [facility] PT 11.7 9.4 - 12.5 sec [facility] INR 1.0 [facility] Comment: An INR <2.0 indicates [...] be appropriate depending on clinical circumstances. Blood 02/19/2021 10:5 4 AM EDT 02/19/2021 11:02 AM EDT Narrative Resulting Agency Comment Spec In Lab Harmony Dobson APRN HEMATOLOGY ORDERAB LES Performing Organization Address [facility] Co de Phone Number [facility] [place] [address] * AFP tumor marker (02/19/2021 10:54 AM EDT) [facility] AFP 3.0 <=8.3 ng/mL [facility] Blood 02/19/2021 10:5 4 AM EDT 02/19/2021 11:02 AM EDT Narrative Resulting Agency Comment Spec In Lab Harmony Dobson APRN CHEMISTRY ORDERABL ES Performing Organization Address [facility] Co de Phone Number [facility] [place] [address] * (ABNORMAL) Comprehensive metabolic panel (non-fasting) (02/19/2021 10:54 AM EDT) [facility] Glucose Lvl 141 65 - 199 mg/dL [facility] Comment:Diabetes: >=200 mg/d L plus symptoms BUN 23(H) 8 - 18 mg/dL [facility] Creatinine 0.79 0.70 - 1.20 mg/dL [facility] Sodium 136 135 - 145 mmol/L [facility] Potassium 4.2 3.5 - 5.0 mmol/L [facility] Comment: Please note: ??Patients with WBC >100,000 may have falsely elevated Potassium levels. ??For accurate Potassium quantification in these patients send serum separator tube (gold top) for subsequent determinations. ??Contact the Clinical Chemistry Laboratory if there are any questions. Chloride 104 98 - 107 mmol/L [facility] CO2 24 22 - 31 mmol/L [facility] Anion Gap 8 5 - 15 mmol/L [facility] Calcium 10.0 8.5 - 10.5 mg/dL [facility] Total Protein 7.9 6.1 - 8.0 g/dL [facility] Albumin 4.3 3.2 - 5.2 g/dL [facility] AST 24 0 - 30 unit/L [facility] ALT 21 0 - 30 unit/L [facility] Alk Phos 81 35 - 105 unit/L [facility] Total Bilirubin 0.6 0.2 - 1.3 mg/dL [facility] Estimated GFR 77 >=60 mL/min/1. 73 m?? [facility] Comment: This patient? s estimated glomerular filtration rate (eGFR) is between 77 mL/min/1.73 m2 (patients with less muscle mass) and 89 mL/min/1.73 m2 (patients with more muscle mass) [...] and symptoms in addition to eGFR. Blood 02/19/2021 10:5 4 AM EDT 02/19/2021 11:02 AM EDT Narrative Resulting Agency Comment Spec In Lab Harmony Dobson INSTALLATION HELPER CHEMISTRY ORDERABL ES [facility] [place] [address] documented in this encounter Visit Diagnoses Diagnosis Primary biliary cholangitis Hepatic cirrhosis, unspecified hepatic cirrhosis type, unspecified whether ascites present Autoimmune hepatitis Screening for colon cancer Special screening for malignant neoplasms, colon Primary biliary cholangitis documented in this encounter Care Teams Water Treatment Plant Mechanic Relationship Specialty Start Date End Date Nicolasa Prince APRN [address] [place] [id number] PCP - General Family Medicine 01/08/21 documented as of this encounter
--- OUTSIDE RECORDS SUMMARY | 2023-11-16 15:10 | XMS_ITS | Encounter Summary ---
Author Organization [facility] [place] [address] Care Team Providers Care Heat Treating Operator Name Role Phone Nicolasa Prince APRN Primary Care Provider +1- [phone] Encounter Details Date Type Department Care Team (Late st Contact Info) Description 01/22/2021 Telephone Cardiology at [address] [phone] Lorie Garza, JAY Social History Tobacco Use Types Packs/Day Years Used Date Smoking Tobacco: Never Assessed Sex and Gender Information Value Date Recorded Sex Assigned at Not on file Gender Identity Not on file Sexual Orientation Not on file documented as of this encounter Plan of Treatment Not on file documented as of this encounter Visit Diagnoses Not on filedocumented in this encounter Care Teams Heat Treating Operator Relationship Specialty Start Date End Date Nicolasa Prince APRN [address] [place] [address] PCP - General Family Medicine 01/08/21 documented as of this encounter
--- OUTSIDE RECORDS SUMMARY | 2023-11-16 15:10 | XMS_ITS | Encounter Summary ---
[place] [address] Care Team Providers Care Digital Art Director Name Role Phone Suresh Nicolasa Giles APRN Primary Care Provider +1- [phone] Reason for Referral * Diagnostic Test (Routine) - Closed Specialty Diagnoses / Procedures Referred By Contac t Referred To Contact Radiology Diagnoses Primary biliary cholangitis Procedures MRI Abdomen wwo Contrast (Generic) Harmony Andrade APRN [facility] [address] [place] [address] Referral ID Status Reason Start Date Expiration Date V isits Requested Visits Authorized [id number] Closed Specialty Service Requested 02/19/2021 08/20/2022 1 1 Reason for Visit * Diagnostic Test (Routine) - Closed Specialty Diagnoses / Procedures Referred By Contac t Referred To Contact Radiology Diagnoses Primary biliary cholangitis Procedures MRI Abdomen wwo Contrast (Generic) Harmony Andrade [facility] [place] [address] [place] [address] Referral ID Status Reason Start Date Expiration Date V isits Requested Visits Authorized [id number] Closed Specialty Service Requested 02/19/2021 08/20/2022 1 1 Encounter Details Date Type Department Care Team (Latest Contact Info) Description 07/22/2021 9:43 AM EDT - 07/22/2021 11:59 PM EDT Hospital [place] [address] Harmony Andrade APRN [facility] [address] Primary biliary cholangitis Discharge Disposition: Home Social History Tobacco Use [...] Take 25 mg by mouth Daily. 03/01/2019 cholecalciferol, Vitamin D3, 50 mcg (2,000 unit) Capsule Take by mouth. aspirin 325 mg Tablet Take 325 mg by mouth daily. Ursodiol (ACTIGALL) 500 mg Tablet Take 1 tablet by mouth 2 times daily. 180 tablet 3 07/22/2021 07/20/2022 azaTHIOprine (Imuran) 50 mg Tablet Take 1.5 tablets by mouth daily. 135 tablet 3 07/22/2021 02/10/2022 fenofibrate (TRICOR) 145 mg Tablet Take 1 tablet by mouth daily. 90 tablet 3 07/22/2021 09/15/2022 losartan (Cozaar) 50 mg Tablet 11/11/2020 02/10/2022 Jardiance 25 mg Tablet 01/22/202109/27 Tradjenta 5 mg Tablet 01/22/20212023 documented as of this encounter Plan of Treatment Not on file documented as of this encounter Procedures Procedure Name Priority Date/Time Associated Diagnosis Comments MRI ABDOMEN WWO CONTRAST Routine 07/22/2021 10:49 AM EDT Primary biliary cholangitis documented in this encounter Results * MRI [...] who have questions please contact the health manager care that requested your imaging first. ? Electronically signed by: Ramon Verduzco MD, [facility] ([phone]), at 07/22/2021 11:29 AM Narrative 07/22/2021 11:29 [...] patients who have questions please contactthe health manager care that requested your imaging first. Electronically signed by: Ramon Verduzco MD, [facility]([phone]), at 07/22/2021 11:29 AM Harmony Andrade APRN [facility] MRI ORDERABLES documented in this encounter Visit Diagnoses Diagnosis Primary biliary cholangitis documented in this encounter Administered Medications Inactive Administered Medications - up to 3 most recent administrations Medication Order MAR Action Action Date Dose Rate Site gadoterate meglumine (Dotarem) (0.5 mMol/mL) injection solution 0-100 mL 0-100 mL, Intravenous, ONCE PRN, 1 dose, Starting on Wed07/22/21 at 1049, Until Wed07/22/21 at 1039, Per Protocol, Radiology Contrast, Routine Given 07/22/2021 10:39 AM EDT 20 mLs documented in this encounter Care Teams Digital Art Director Relationship Specialty Start Date End Date Nicolasa Prince APRN [address] [place] [address] PCP - General Family Medicine 01/08/21 documented as of this encounter
[2023-11-16 19:16] LABS: BUN 39 mg/dL (7-18); CREATININE 1.1 mg/dL (0.55-1.02); Calcium 9.7 mg/dL (8.5-10.1); Chloride 106 mmol/L (98-107); Estimated GFR 54.06 (mL/min/1.73m2); Glucose 142 mg/dL (74-106); Potassium 4.3 mmol/L (3.5-5.1); Sodium 139 mmol/L (136-145)
[2023-11-18 11:12] LABS: Lyme Ab w Rflx to Lyme Confirm Negative (Negative)
[2023-11-20 00:12] LABS: Anaplasma phagocytophilum Negative (Negative); B. miyamotoi PCR Negative (Negative); Babesia divergens/MO-1 Negative (Negative); Babesia duncani Negative (Negative); Babesia microti Negative (Negative); Ehrlichia chaffeensis Negative (Negative); Ehrlichia ewingii/canis Negative (Negative); Ehrlichia muris eauclairensis Negative (Negative)
== END 2023-11-16 15:07 | disposition home or self-care (01) ==
LOC: NCHCN 15:06
PROVIDERS: PCP Nurse Practitioner Family; Visit Provider Nurse Practitioner Family
DX: N18.31 Chronic kidney disease, stage 3a (principal); W57.XXXA Bitten or stung by nonvenomous insect and other nonvenomous arthropods, initial encounter; T14.8XXA Other injury of unspecified body region, initial encounter
CPT/HCPCS: 80048; 87798; 86618

== ENCOUNTER 2023-11-21 18:50 | Emergency (ER) | payer MEDICARE, SELFPAY ==
--- OUTSIDE RECORDS SUMMARY | 2023-11-21 18:58 | XMS_ITS | Encounter Summary ---
Author Organization [facility] [place] [address] Care Team Providers Care Curriculum Coordinator Name Role Phone Nicolasa Prince APRN Primary Care Provider +1- [phone] Encounter Details Date Type Department Care Team (Late st Contact Info) Description 09/28/2023 1:00 PM EDT Office [place] [phone] Irene Lara MD [facility] [place] [address] Primary biliary cholangitis; Hepatic cirrhosis, unspecified hepatic [...] PBC/AIH. Her original diagnosis was made in [place] and she was managed by a circular saw edge fuser at [facility]. Her records were extensively reviewed in [...] normal since approximately 2016. She moved to [place] in 2019.. Living with her two brothers. [...] Vitals: 09/28/23 1310 BP: 118/57 BP Location ([facility]): Right arm Patient Position: Sitting [...] screening in six months- will do in [facility], , GIF here in one year Time spent with patient: 25 min Time spent reviewing records, documenting- all today : 8 min Irene Lara MD Section of Gastroenterology & Hepatology [address] [place] [address] Cc: Nicolasa Prince APRN SURGICAL PATHOLOGY REPORT Patient: PREMA SALGADO MR #: [id number] Submitted by: Elie Moreno MD FINAL DIAGNOSIS [...] the ductules cannot be definitively distinguished from [place] bile ducts. There is patchy periportal hepatocellular [...] had a prior liver biopsy reviewed at [facility] (see accession number [id number]), although the slides are not available for [...] present documented in this encounter Care Teams Curriculum Coordinator Relationship Specialty Start Date End Date Nicolasa Prince APRN [address] [place] [address] PCP - General Family Medicine 01/08/21 documented as of this encounter
--- OUTSIDE RECORDS SUMMARY | 2023-11-21 18:58 | XMS_ITS | Encounter Summary ---
Author Organization [facility] [place] [address] Care Team Providers Care Emergency Medical Technician Basic Name Role Phone Nicolasa Prince APRN Primary Care Provider +1- [phone] Encounter Details Date Type Department Care Team [...] on filedocumented in this encounter Care Teams Emergency Medical Technician Basic Relationship Specialty Start Date End Date Nicolasa Prince APRN [address] [place] [address] PCP - General Family Medicine 01/08/21 documented as of this encounter
--- OUTSIDE RECORDS SUMMARY | 2023-11-21 18:58 | XMS_ITS | Encounter Summary ---
Author Organization [facility] [place] [address] Care Team Providers Care Photographer Portrait Name Role Phone Nicolasa Prince APRN Primary Care Provider +1- [phone] Encounter Details Date Type Department Care Team (Late st Contact Info) Description 01/27/2023 External Results [place] [address] Irene Lara MD [facility] [place] [address] Social History Tobacco Use Types Packs/Day Years [...] 76 AST 28 ALT 29 Historical Provider POINT OF CARE PAMELA T ORDERABLES documented in this encounter Visit Diagnoses Not on filedocumented in this encounter Care Teams Photographer Portrait Relationship Specialty Start Date End Date Nicolasa Prince, YULIA [address] [place] [address] PCP - General Family Medicine 01/08/21 documented as of this encounter
--- OUTSIDE RECORDS SUMMARY | 2023-11-21 18:58 | XMS_ITS | Encounter Summary ---
Author Organization [facility] [place] [address] Care Team Providers Care Junior Linux Systems Administrator Name Role Phone Nicolasa Prince APRN Primary Care Provider +1- [phone] Reason for Visit * Reason Comments Medication Refill Encounter Details Date Type Department Care Team (Late st Contact Info) Description 03/14/2023 [place] [address] Irene Lara MD [facility] [place] [address] Autoimmune hepatitis Social History Tobacco Use Types [...] hepatitis documented in this encounter Care Teams Junior Linux Systems Administrator Relationship Specialty Start Date End Date Nicolasa Prince APRN [address] [place] [address] PCP - General Family Medicine 01/08/21 documented as of this encounter
--- OUTSIDE RECORDS SUMMARY | 2023-11-21 18:58 | XMS_ITS | Encounter Summary ---
Author Organization [facility] Address [facility] [place] [address] Care Team Providers Care Classroom Coordinator Name Role Phone Nicolasa Prince YULIA Primary Care Provider +1- [phone] Encounter Details Date Type Department Care Team (Latest Contact Info) Description 03/30/2023 9:10 AM EST - 03/30/2023 11:59 PM [facility] Hospital En[place] [address] Carolynn Lamar MD [facility] [place] [address] Primary biliary cholangitis; Hepatic cirrhosis, unspecified hepatic [...] who have questions, please contact the health care transport nurse that requested your imaging first. ? Ke Jay, Staff Physician Electronically Signed Final Report ?? 03/30/2023 12:27 pm Narrative 03/30/2023 12:28 PM EST Abdominal ? (Signed Final 03/30/2023 12:27 pm) PATIENT INFO: ID #: ? [id number] ?: ??[birth year] (72 yrs)(F) Name: ? PREMA SALGADO ?Visit Date: 03/30/2023 09:52 am PERFORMED BY: Attending: ?Pierre LUTHER, Ke Conklin Resident: ? Joseph LUTHER, Ada Barrow Performed By: ? Elba Milian RDMS Referred By: ?CAORLYNN LAMAR Location: ? [place] [facility]ICE(S) PROVIDED: [facility] - Hepatology Protocol - Abdominal ?49652 Limited Survey Single Organ or Quadrant - [id number] INDICATIONS: cirrhosis, screen for hcc COMPARISON: US: [...] 03/30/2023 12:27 pm) PATIENT INFO: ID #: [id number] : 54 (72 yrs)(F) Name: PREMA SALGADO Visit Date: 03/30/2023 09:52 am PERFORMED BY: Attending: Ke Jay MD Resident: Ada Ruiz MD Performed By: Elba Milian RDMS Referred By: CAROLYNN LAMAR Location: [facility] - Hepatology Protocol - Abdominal 45665 Limited Survey Single Organ or Quadrant - [id number] INDICATIONS: cirrhosis, screen for hcc COMPARISON: US: [...] who have questions, please contact the health care transport nurse that requested your imaging first. Ke Jay, Staff Physician Electronically Signed Final Report 03/30/2023 12:27 pm Carolynn Lamar MD IMG GEN ORDERABLE S documented in this encounter Visit Diagnoses Diagnosis Primary biliary cholangitis Hepatic cirrhosis, unspecified hepatic cirrhosis type, unspecified whether ascites present documented in this encounter Care Teams Classroom Coordinator Relationship Specialty Start Date End Date Nicolasa Prince APRN [address] [place] [address] PCP - General Family Medicine 01/08/21 documented as of this encounter
--- OUTSIDE RECORDS SUMMARY | 2023-11-21 18:58 | XMS_ITS | Encounter Summary ---
Author Organization [facility] [place] [address] Care Team Providers Care Economist Research Assistant Name Role Phone Nicolasa Prince APRN Primary Care Provider +1- [phone] Reason for Visit * Reason Comments Medication Refill Encounter Details Date Type Department Care Team (Late st Contact Info) Description 10/15/2022 Refill [place] [address] Irene Lara MD [facility] [place] [address] Autoimmune hepatitis Social History Tobacco Use Types [...] hepatitis documented in this encounter Care Teams Economist Research Assistant Relationship Specialty Start Date End Date Nicolasa Prince APRN [address] [place] [address] PCP - General Family Medicine 01/08/21 documented as of this encounter
--- OUTSIDE RECORDS SUMMARY | 2023-11-21 18:58 | XMS_ITS | Encounter Summary ---
Author Organization [facility] Address [address] [place] [address] Care Team Providers Care Broadcaster Name Role Phone Unavailable Primary Care Provider Unavailabl e Encounter Details Date Type Department Care Team (Late st Contact Info) Description 03/01/2023 Lab Requisition [facility] Pathology & [place] [address] Outr Resulting Lab, Provider Social History Tobacco [...] Marker 2.7 <8.1 ng/mL 03/03/2023 8:36 EDT [facility] Comment: AFP Tumor Marker [...] Resulting Lab CHEMISTRY & BLOOD GAS ORDERABLES [facility] [address] [place] [address] documented in this encounter Visit Diagnoses Not on filedocumented in this encounter
--- OUTSIDE RECORDS SUMMARY | 2023-11-21 18:58 | XMS_ITS | Encounter Summary ---
Author Organization [facility] [place] [address] Care Team Providers Care Handle Maker Name Role Phone Nicolasa Prince APRN Primary Care Provider +1- [phone] Reason for Visit * Reason Comments Medication Refill Encounter Details Date Type Department Care Team (Late st Contact Info) Description 12/14/2022 [place] [address] Irene Lara MD [facility] [place] [address] Autoimmune hepatitis Social History Tobacco Use Types [...] hepatitis documented in this encounter Care Teams Handle Maker Relationship Specialty Start Date End Date Nicolasa Prince APRN [address] [place] [address] PCP - General Family Medicine 01/08/21 documented as of this encounter
--- OUTSIDE RECORDS SUMMARY | 2023-11-21 18:58 | XMS_ITS | Encounter Summary ---
Author Organization [facility] [place] [address] Care Team Providers Care Production Line Welder Name Role Phone Nicolasa Prince APRN Primary Care Provider +1- [phone] Reason for Visit * Reason Comments Medication Refill Encounter Details Date Type Department Care Team (Late st Contact Info) Description 11/19/2023 Refill [place] [address] Irene Lara MD [facility] [place] [address] Autoimmune hepatitis Social History Tobacco Use Types [...] hepatitis documented in this encounter Care Teams Production Line Welder Relationship Specialty Start Date End Date Nicolasa Prince APRN [address] [place] [address] PCP - General Family Medicine 01/08/21 documented as of this encounter
--- OUTSIDE RECORDS SUMMARY | 2023-11-21 18:58 | XMS_ITS | Encounter Summary ---
Author Organization [facility] [place] [address] Care Team Providers Care Health Information Coder Name Role Phone Nicolasa Prince APRN Primary Care Provider +1- [phone] Encounter Details Date Type Department Care Team (Late st Contact Info) Description 09/30/2022 1:00 PM EDT Office [place] [address] Irene Lamar MD [facility] [place] [address] Primary biliary cholangitis; Hepatic cirrhosis, unspecified hepatic [...] PBC/AIH. Her original diagnosis was made in [place] and she was managed by a certified surgical technician at [facility]. Her records were extensively reviewed in care [...] normal since approximately 2016. She moved to [place] in 2019.. Living with her two brothers. [...] Vitals: 09/30/22 1248 BP: 128/72 BP Location ([facility]): Right arm Patient Position: Sitting [...] this in 3 months. Orders sent to [facility] PCP considering ozempic for diabetes, I have no concerns about this from a liver standpoint and support its use. Time spent with patient: 25 min Time spent reviewing records, documenting- all today : 7 min Irene Lamar MD Section of Gastroenterology & Hepatology [address] [place] [address] Cc: Nicolasa Prince APRN SURGICAL PATHOLOGY REPORT ? Patient: PREMA SALGADO ?MR #: [id number] ?Submitted by: Elie Moreno MD FINAL DIAGNOSIS [...] the ductules cannot be definitively distinguished from [place] bile ducts. ??There is patchy periportal hepatocellular [...] prior liver biopsy reviewed at [facility] (see accession number [id number]), although the slides are not available for direct comparison at this time. ??However, based on the microscopic description, it appears that fibrosis may have progressed. documented in this encounter Plan of Treatment Not on file documented as of this encounter Results * AFP tumor marker (03/30/2023 10:23 AM EST) AFP 2.8 <=8.3 ng/mL [facility] Comment: This result was generated using a Mendoza Jonathan immunoassay. ??Results obtained from other methods or manufacturers cannot be used interchangeably with this method. Blood 03/30/2023 10:2 3 AM EST 03/30/2023 10:30 AM EST Narrative Resulting Agency Comment Spec In Lab Irene Lamar MD CHEMISTRY ORDERABLES Performing Organization Address [facility] de Phone Number [facility] [place] [address] * Prothrombin Time (03/30/2023 10:23 AM EST) PT 12.0 9.4 - 12.5 sec [facility] INR 1.1 [facility] Comment: An INR <2.0 [...] MD HEMATOLOGY ORDERABLE S Performing Organization Address [facility] de Phone Number [facility] [place] [address] * (ABNORMAL) Comprehensive metabolic panel (non-fasting) (03/30/2023 10:23 AM EST) Glucose Lvl 110 65 - 199 mg/dL [facility] Comment:Diabetes: >=200 mg/d L plus symptoms BUN 20(H) 8 - 18 mg/dL [facility] Creatinine 0.82 0.70 - 1.20 mg/dL [facility] Sodium 140 135 - 145 mmol/L [facility] Potassium 4.1 3.5 - 5.0 mmol/L [facility] Comment: Please note: ??Patients with WBC >100,000 may have falsely elevated Potassium levels. ??For accurate Potassium quantification in these patients send serum separator tube (gold top) for subsequent determinations. ??Contact the Clinical Chemistry Laboratory if there are any questions. Chloride 105 98 - 107 mmol/L [facility] CO2 22 22 - 31 mmol/L [facility] Anion Gap 13 5 - 15 mmol/L [facility] Calcium 9.8 8.5 - 10.5 mg/dL [facility] Total Protein 7.2 6.1 - 8.0 g/dL [facility] Albumin 4.4 3.2 - 5.2 g/dL [facility] AST 31(H) 0 - 30 unit/L [facility] ALT 24 0 - 30 unit/L [facility] Alk Phos 64 35 - 105 unit/L [facility] Total Bilirubin 0.7 0.2 - 1.3 mg/dL [facility] Estimated GFR 77 >=60 mL/min/1. 73 m?? [facility] Comment: This patient's estimated GFR [...] In Lab Irene Lamar MD CHEMISTRY ORDERABLES [facility] [place] [address] * US Abdomen Limited Hepatology Protocol (03/30/2023 [...] who have questions, please contact the health animal caretaker supervisor that requested your imaging first. ? Ke Jay, Staff Physician Electronically Signed Final Report ?? 03/30/2023 12:27 pm Narrative 03/30/2023 12:28 PM EST Abdominal ? (Signed Final 03/30/2023 12:27 pm) PATIENT INFO: ID #: ? [id number] ?: ??54 (72 yrs)(F) Name: ? PREMA SALGADO ?Visit Date: 03/30/2023 09:52 am PERFORMED BY: Attending: ?Pierre LUTHER, Ke Conklin Resident: ? Joseph LUTHER, Ada Barrow Performed By: ? Elba Milian RDMS Referred By: ?IRENE LAMAR Location: ? [place] [facility] Protocol - Abdominal ?71597 Limited Survey Single Organ or Quadrant - [id number] INDICATIONS: cirrhosis, screen for hcc COMPARISON: US: [...] 03/30/2023 12:27 pm) PATIENT INFO: ID #: [id number] : 54 (72 yrs)(F) Name: PREMA SALGADO Visit Date: 03/30/2023 09:52 am PERFORMED BY: Attending: Ke Jay MD Resident: Ada Ruiz MD Performed By: Elba Milian RDMS Referred By: IRENE LAMAR Location: [place] SERVICE(S) PROVIDED: [facility] - Hepatology Protocol - Abdominal 82913 Limited Survey Single Organ or Quadrant - [id number] INDICATIONS: cirrhosis, screen for hcc COMPARISON: US: [...] who have questions, please contact the health animal caretaker supervisor that requested your imaging first. Ke Jay, Staff Physician Electronically Signed Final Report 03/30/2023 12:27 pm Irene Lamar MD IMG US GEN ORDERABLE S documented in this encounter Visit Diagnoses Diagnosis Primary biliary cholangitis Hepatic cirrhosis, unspecified hepatic cirrhosis type, unspecified whether ascites present Primary biliary cholangitis Hepatic cirrhosis, unspecified hepatic cirrhosis type, unspecified whether ascites present documented in this encounter Care Teams Health Information Coder Relationship Specialty Start Date End Date [place] Nicolasa Giles, YULIA [address] [place] [address] PCP - General Family Medicine 01/08/21 documented as of this encounter
--- OUTSIDE RECORDS SUMMARY | 2023-11-21 18:58 | XMS_ITS | Encounter Summary ---
[place] [address] Care Team Providers Care Chief Controller Center Name Role Phone Nicolasa Prince APRN Primary Care Provider +1- [phone] Encounter Details Date Type Department Care Team (Latest Contact Info) Description 09/28/2023 11:15 AM EDT Laboratory Appointment Lab [address] [place] [address] Primary biliary cholangitis Social History Tobacco Use [...] Lara MD CHEMISTRY ORDERABLES Performing Organization Address City/State/[facility] Co de Phone Number [facility] [place] [address] documented in this encounter Visit Diagnoses Diagnosis Primary biliary cholangitis documented in this encounter Care Teams Chief Controller Center Relationship Specialty Start Date End Date Nicolasa Prince APRN [address] [place] [address] PCP - General Family Medicine 01/08/21 documented as of this encounter
--- OUTSIDE RECORDS SUMMARY | 2023-11-21 18:58 | XMS_ITS | Encounter Summary ---
Author Organization Replaced By [facility] Address [facility] [place] [address] Care Team Providers Care Corrosion Prevention Metal Sprayer Name Role Phone Nicolasa Prince APRN Primary Care Provider +1- [phone] Encounter Details Date Type Department Care Team (Latest Contact Info) Description 08/17/2022 10:14 AM EDT - 08/17/2022 11:59 PM EDT Hospital [place] [id number] Irene Lamar MD [facility] [address] Autoimmune hepatitis; Primary biliary cholangitis; Hepatic cirrhosis, [...] PM Electronically signed by: Kashmir Lindsay MD, [facility] ([phone]), at 08/17/2022 2:04 PM Thank you for letting us participate in the care of this patient. If you are a health care provider and have any questions regarding this report, please contact the number above. For patients who have questions, please contact the health behavioral health care manager that requested your imaging first. ?Kashmir Lindsay, Staff Physician Electronically Signed Final Report ?? 08/17/2022 02:12 pm Narrative 08/17/2022 2:12 PM EDT Abdominal ? (Signed Final 08/17/2022 02:12 pm) PATIENT INFO: ID #: ? [id number] ?: ??[birth year] (71 yrs)(F) Name: ? PREMA SALGADO ?Visit Date: 08/17/2022 10:53 am PERFORMED BY: Attending: ?Neftali LUTHER, Kashmir Resident: ? Milagros LUTHER, James Curtis Performed By: ? Angelina Crystal RDMS Referred By: ?IRENE LAMAR Location: ? [place] [facility] - [facility] Protocol - Abdominal ?93100 Limited Survey Single Organ or Quadrant - [id number] INDICATIONS: cirrhosis, screen for hcc; assess for [...] 08/17/2022 02:12 pm) PATIENT INFO: ID #: [id number] : 54 (71 yrs)(F) Name: PREMA SALGADO Visit Date: 08/17/2022 10:53 am PERFORMED BY: Attending: Kashmir Lindsay MD Resident: James Linares MD Performed By: Angelina Crystal RDMS Referred By: IRENE LAMAR Location: [place] SERVICE(S) PROVIDED: [facility] - Hepatology Protocol - Abdominal 35327 Limited Survey Single Organ or Quadrant - [id number] INDICATIONS: cirrhosis, screen for hcc; assess for [...] PM Electronically signed by: Kashmir Lindsay MD, [facility] ([phone]), at 08/17/2022 2:04 PM Thank you for letting us participate in the care of this patient. If you are a health care provider and have any questions regarding this report, please contact the number above. For patients who have questions, please contact the health behavioral health care manager that requested your imaging first. Kashmir Lindsay, Staff Physician Electronically Signed Final Report 08/17/2022 02:12 pm Irene Lamar MD IMG US GEN ORDERABLE S documented in this encounter Visit Diagnoses Diagnosis Autoimmune hepatitis Primary biliary cholangitis Hepatic cirrhosis, unspecified hepatic cirrhosis type, unspecified whether ascites present documented in this encounter Care Teams Corrosion Prevention Metal Sprayer Relationship Specialty Start Date End Date Nicolasa Prince APRN [address] [place] [address] PCP - General Family Medicine 01/08/21 documented as of this encounter
--- OUTSIDE RECORDS SUMMARY | 2023-11-21 18:58 | XMS_ITS | Encounter Summary ---
Author Organization [facility] [place] [address] Care Team Providers Care Gizzard Puller Name Role Phone Nicolasa Prince APRN Primary Care Provider +1- [phone] Reason for Visit * Reason Comments Medication Refill Encounter Details Date Type Department Care Team (Late st Contact Info) Description 09/15/2022 Refill [place] [address] Irene Lara MD [facility] [place] [address] Autoimmune hepatitis Social History Tobacco Use Types [...] hepatitis documented in this encounter Care Teams Gizzard Puller Relationship Specialty Start Date End Date Nicolasa Prince APRN [address] [place] [address] PCP - General Family Medicine 01/08/21 documented as of this encounter
--- OUTSIDE RECORDS SUMMARY | 2023-11-21 18:58 | XMS_ITS | Encounter Summary ---
Author Organization [facility] [place] [address] Care Team Providers Care Handle Turner Name Role Phone Nicolasa Prince APRN Primary Care Provider +1- [phone] Reason for Visit * Reason Onset Date Comments Appointment 06/24/2023 US/Abdomen Encounter Details Date Type Department Care Team (Late st Contact Info) Description 06/24/2023 [place] [address] Gisele Jim RN Appointment (US/Abdomen) [...] on filedocumented in this encounter Care Teams Handle Turner Relationship Specialty Start Date End Date Nicolasa Prince APRN [address] [address] PCP - General Family Medicine 01/08/21 documented as of this encounter
--- OUTSIDE RECORDS SUMMARY | 2023-11-21 18:58 | XMS_ITS | Encounter Summary ---
Author Organization [facility] Address [address] [place] [address] Care Team Providers Care Cartridge Loading Operator Name Role Phone Unavailable Primary Care Provider Unavailabl e Encounter Details Date Type Department Care Team (Late st Contact Info) Description 11/17/2023 Lab [facility]ology & Laboratory Medicine - [facility] [address] [place] [address] Outr Resulting Lab, Provider Social History Tobacco [...] Procedure Name Priority Date/Time Associated Diagnosis Comments LYME AB Routine 11/16/2023 9:50 EDT documented in this encounter Results * LYME AB (11/16/2023 9:50 EDT) Lyme Ab Negative Negative 11/18/2023 11:08 EDT [facility] Blood VENOUS BLOOD / Unknown 11/16/2023 9:50 EDT 11/17/2023 18:10 EDT Provider Outr Resulting Lab IMMUNOLOGY A ND SEROLOGY ORDERABLES [facility] [address] [place], [place] [address] documented in this encounter Visit Diagnoses Not on filedocumented in this encounter
--- OUTSIDE RECORDS SUMMARY | 2023-11-21 18:58 | XMS_ITS | Encounter Summary ---
Author Organization [facility] [place] [address] Care Team Providers Care Registered Representative Name Role Phone Nicolasa Prince APRN Primary Care Provider +1- [phone] Encounter Details Date Type Department Care Team (Late st Contact Info) Description 03/30/2023 11:30 AM EST Office [place] [address] Carolynn Lamar MD [facility] [place] [address] Biliary cirrhosis Social History Tobacco Use Types [...] PBC/AIH. Her original diagnosis was made in [place] and she was managed by a civil designer at [facility]. Her records were extensively reviewed in [...] normal since approximately 2016. She moved to [place] in 2019.. Living with her two brothers. [...] Vitals: 03/30/23 1122 BP: 129/62 BP Location ([facility]): Right arm Patient Position: Sitting [...] Lamar MD Section of Gastroenterology & Hepatology [address] [place], [place] [id number] Cc: Nicolasa Prince APRN SURGICAL PATHOLOGY REPORT Patient: PREMA SALGADO MR #: [id number] Submitted by: Elie Moreno MD FINAL DIAGNOSIS [...] the ductules cannot be definitively distinguished from [place] bile ducts. There is patchy periportal hepatocellular [...] had a prior liver biopsy reviewed at [facility] (see accession number [id number]), although the slides are not available for direct comparison at this time. However, based on the microscopic description, it appears that fibrosis may have progressed. documented in this encounter Plan of Treatment Not on file documented as of this encounter Results * US Abdomen Limited Hepatology Protocol (09/28/2023 10:54 AM EDT) WORKSTATION ID [id number] DH RAD Anatomical Region Laterality Modality Abdomen [...] signed by: Fiordaliza Fabian MD, [facility] ([phone]), at 09/28/2023 11:34 AM Thank you for letting us participate in the care of this patient. If you are a health care provider and have any questions regarding this report, please contact the number above. For patients who have questions, please contact the health emergency care attendant that requested your imaging first. ?Fiordaliza Fabian, [facility] Scientific Publications Editor Electronically Signed Final Report ?? 09/28/2023 11:41 am Narrative 09/28/2023 11:42 AM EDT Abdominal ? (Signed Final 09/28/2023 11:41 am) PATIENT INFO: ID #: ? [id number] ?: ??[birth year] (72 yrs)(F) Name: ? PREMA SALGADO ?Visit Date: 09/28/2023 10:34 am PERFORMED BY: Attending: ?Caren LUTHER, Fiordaliza Prado Resident: ? Madhavi Thomas MD Performed By: ? Joanna Bronson RDMS Referred By: ?CAROLYNN LAMAR Location: ? [place] SERVICE(S) PROVIDED: [facility] - Hepatology Protocol - Abdominal ?16824 Limited Survey Single Organ or Quadrant - [id number] INDICATIONS: cirrhosis, screen for hcc COMPARISON: US [...] on 4 quadrant evaluation. Procedure Note Fiordaliza Fabina MD - 09/28/2023 Abdominal (Signed Final 09/28/2023 11:41 am) PATIENT INFO: ID #: [id number] : 54 (72 yrs)(F) Name: PREMA SALGADO Visit Date: 09/28/2023 10:34 am PERFORMED BY: Attending: Fiordaliza Fabian MD Resident: Madhavi hTomas MD Performed By: Joanna Bronson RDMS Referred By: CAROLYNN LAMAR Location: [place] SERVICE(S) PROVIDED: [facility] - Hepatology Protocol - Abdominal 85452 Limited Survey Single Organ or Quadrant - [id number] INDICATIONS: cirrhosis, screen for hcc COMPARISON: US [...] signed by: Fiordaliza Fabian MD, [facility] ([phone]), at 09/28/2023 11:34 AM Thank you for letting us participate in the care of this patient. If you are a health care provider and have any questions regarding this report, please contact the number above. For patients who have questions, please contact the health emergency care attendant that requested your imaging first. Fiordaliza Fabian E Scientific Publications Editor Electronically Signed Final Report 09/28/2023 11:41 am Carolynn Lamar MD IMG US GEN ORDERABLE S documented in this encounter Visit Diagnoses Diagnosis Biliary cirrhosis Biliary cirrhosis documented in this encounter Care Teams Registered Representative Relationship Specialty Start Date End Date Nicolasa Prince APRN [address] [address] PCP - General Family Medicine 01/08/21 documented as of this encounter
--- OUTSIDE RECORDS SUMMARY | 2023-11-21 18:58 | XMS_ITS | Encounter Summary ---
Author Organization [facility] [place] [address] Care Team Providers Care Electrical Design Technologist Name Role Phone Nicolasa Prince APRN Primary Care Provider +1- [phone] Encounter Details Date Type Department Care Team (Late st Contact Info) Description 12/25/2022 External Results [place] [address] Irene Lara MD [facility] [place] [address] Social History Tobacco Use Types Packs/Day Years [...] 77 AST 29 ALT 28 Historical Provider POINT OF CARE PAMELA T ORDERABLES documented in this encounter Visit Diagnoses Not on filedocumented in this encounter Care Teams Electrical Design Technologist Relationship Specialty Start Date End Date Nicolasa Prince, YULIA [address] [place] [address] PCP - General Family Medicine 01/08/21 documented as of this encounter
--- OUTSIDE RECORDS SUMMARY | 2023-11-21 18:58 | XMS_ITS | Encounter Summary ---
Author Organization [facility] [place] [address] Care Team Providers Care Implementation Specialist Name Role Phone Nicolasa Prince APRN Primary Care Provider +1- [phone] Encounter Details Date Type Department Care Team [...] on filedocumented in this encounter Care Teams Implementation Specialist Relationship Specialty Start Date End Date Nicolasa Prince APRN [address] [place] [address] PCP - General Family Medicine 01/08/21 documented as of this encounter
--- OUTSIDE RECORDS SUMMARY | 2023-11-21 18:58 | XMS_ITS | Encounter Summary ---
Author Organization [facility] [place] [address] Care Team Providers Care Operators Teacher Name Role Phone Nicolasa Prince APRN Primary Care Provider +1- [phone] Reason for Visit * Auth/Cert (Routine) Specialty Diagnoses / Procedures Referred By Minh t Referred To Contact Diagnoses Encounter for screening for malignant neoplasm of colon 6 month Procedures PRO COLONOSCOPY, DIAGNOSTIC PRO COLONOSCOPY, BIOPSY PRO COLONOSCOPY, REMV LESN, SNARE PRO ANES, LWR INTESTINE, SCREENING COLONOSCOPY COLONOSCOPY,SCREENING (WRVU 3.26) Elin Carlson MD [facility] [place] [address] [facility] Referral ID Status Reason Start Date Expiration Date Visits Re quested Visits Authorized [id number] 1 1 Encounter Details Date Type Department Care Team (Late st Contact Info) Description 02/19/2023 1:45 PM EDT - 02/19/2023 2:30 PM EDT Surgery Gastroenterology at [facility] [place] [address] Elin Carlson MD [facility] [place] [address] COLONOSCOPY, POLYPECTOMY, REMOVAL LESION BY SNARE (WRVU [...] occurs, please contact your Doctor. Please call [phone] before 8pm Mon-Fri with problems, questions or concerns. If you call after 8pm or on weekends, call the Hospital at [phone] and ask to speak to the Superintendent Distribution manager concrete and the hoist operator will contact that person for you. When should you call for help? Call [phone] anytime you think you may need emergency [...] After Visit Summary and more online at [email or web address] If you would like to provide [...] cost to you. Content Version: 12.2 ?? [id number] [employer]. Care instructions adapted under license by [facility]. If you have questions about a medical condition or this instruction, always ask your healthcare professional. 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 Location: 4T; EA12; A The signing pathologist has (i) examined the relevant preparation(s) for the specimen(s) and (ii) rendered or confirmed the diagnosis(es). . ?Surgical Pathology DIAGNOSIS A - Ascending colon polyps 2mm, 1mm, resection: - ??Fragments of tubular adenoma. B - Rectal polyp 1mm, resection: - ??Hyperplastic polyp. CR-PX Electronically signed by: ?Per LUTHER, Arpit Verified: ??03/01/2023 16:31 ??Pathologist Performed at: ??-[facility] Dept. of Pathology, [place] [address] Grant Manager: Stefan Min MD, FCAP, ??CLIA Certificate: [id number] SPECIMEN(S) SUBMITTED A - ascending colon polyps [...] toto ??in 1 cassette labeled B1. ??sdy [facility] 02/19/2023 2:32 PM EDT Elin Carlson MD PATHOLOGY/CYTOLOGY O RDERACAMERON [place] [address] * Specimen to Pathology (02/19/2023 2:32 PM EDT) AP Specimen 02/19/2023 2:32 PM EDT 02/19/2023 2:32 PM EDT Narrative [facility] - 02/19/2023 2:32 PM EDT Specimen requisition ordered. ??Separate Pathology report to follow Elin Carlson MD PATHOLOGY/CYTOLOGY O MEENU Performing Organization Address [facility] [place] [address] * Specimen to Pathology (02/19/2023 2:32 PM EDT) AP Specimen 02/19/2023 2:32 PM EDT 02/19/2023 2:32 PM EDT Narrative [facility] - 02/19/2023 2:32 PM EDT Specimen requisition ordered. ??Separate Pathology report to follow Elin Carlson MD PATHOLOGY/CYTOLOGY Asad CORRIGAN Performing Organization Address [facility] [place] [address] * COLONOSCOPY (02/19/2023 1:47 PM EDT) COLONOSCOPY [facility] Endoscopy Procedure Date: 02/19/2023 1:47 PM ? Patient Name: Cookie Salgado ? Date of : 1950 ? Age: 72 ? Order #: [id number] ? Instrument Name: [id number] ? Procedure: ? Colonoscopy Indications: ? Follow-up [...] ? was evaluated using the BBPS ? ([place] Bowel Preparation Scale) ? with scores of: [...] Procedure Code(s): ? --- Professional --- ? 13525, Colonoscopy, flexible; with ? removal of tumor(s), polyp(s), or ? other lesion(s) by snare technique CPT copyright 2021 [employer]. All rights reserved. The codes documented in this report are preliminary and upon acute care registered nurse review may be revised to meet current compliance requirements. Attending Participation: ? I personally performed the entire procedure. ? Elin Carlson MD _ Elin Carlson MD 02/19/2023 2:36:53 PM This report has been signed electronically. Number of Addenda: 0 Note Initiated On: 02/19/2023 1:47 PM [employer]ATION 02/19/2023 1:47 PM EDT Nicolasa Prince CALENDER FEEDER GENERAL SURGICAL O RDERABLES Performing Organization Address City/State/[facility] Co de Phone Number PROVATION documented in [...] RN) documented in this encounter Care Teams Operators Teacher Relationship Specialty Start Date End Date Nicolasa Prince, CALENDER FEEDER [address] [place] [address] PCP - General Family Medicine 01/08/21 documented as of this encounter
--- OUTSIDE RECORDS SUMMARY | 2023-11-21 18:58 | XMS_ITS | Clinical Summary ---
Author Organization [facility] Address [facility] [place] [address] Care Team Providers Care Director Medicaid Name Role Phone Nicolasa Prince YULIA Primary Care Provider +1- [phone] Allergies Active Allergy Reactions Criticality Noted Date Comments Amoxicillin 01/22/2021 Ciprofloxacin 01/22/2021 Egg Derived Other (See Comments),Anaphylaxi s,Hives,Itching High 02/17/2013 Also Egg Metformin Nausea And Vomiting Low 10/29/2020 Mold Other (See Comments) 01/22/2021 Also SMUT Wjyaydi-Oot-Svn Reductase Inhibitors Low 10/25/2020 Other reaction(s): Myalgia/Myositis/A [...] TABLET BY MOUTH TWICE DAILY 180 tablet 11/20/2023 Active Active Problems Problem Noted Date Diagnosed Date Atherosclerotic heart diseas e of [place] coronary artery without angina pectoris 01/22/2021 Encounters Date Type Department Care Team Description 11/19/2023 [place] [address] Irene Lamar MD Autoimmune hepatitis 09/28/2023 1:00 PM EDT Office [place] [address] Irene Lamar MD Primary biliary cholangitis; Hepatic cirrhosis, unspecified hepatic cirrhosis type, unspecified whether ascites present 09/28/2023 11:15 AM EDT Laboratory Appointment Lab [place] [address] Primary biliary cholangitis 09/28/2023 10:06 AM EDT - 09/28/2023 11:59 PM EDT Hospital [place] [address] Irene Lamar MD Biliary cirrhosis Discharge Disposition: Home 09/28/2023 Travel 08/23/2023 [place] [address] Irene Lamar MD Autoimmune hepatitis from Last 3 [...] Total Protein 7.6 6.1 - 8.0 g/dL [facility] Albumin 4.4 3.2 - 5.2 g/dL [facility] AST 25 0 - 30 unit/L [facility] ALT 23 0 - 30 unit/L [facility] Alk Phos 70 35 - 105 unit/L [facility] Total Bilirubin 0.7 0.2 - 1.3 mg/dL [facility] Bili, Direct 0.3 0.0 - 0.3 mg/dL [facility] Blood 09/28/2023 11:4 6 AM EDT 09/28/2023 11:51 AM EDT Narrative Resulting Agency Comment Spec In Lab Irene Lamar MD CHEMISTRY ORDERABLES Performing Organization Address City/State/[facility] Co de Phone Number [facility] [place] [phone] * US Abdomen Limited Hepatology Protocol (09/28/2023 10:54 AM EDT) Pathologist [facility] WORKSTATION ID [id number] [facility] Anatomical Region Laterality Modality Abdomen Ultrasound 09/28/2023 [...] signed by: Fiordaliza Fabian MD, [facility] ([phone]), at 09/28/2023 11:34 AM Thank you for letting us participate in the care of this patient. If you are a health care provider and have any questions regarding this report, please contact the number above. For patients who have questions, please contact the health director of healthcare systems that requested your imaging first. ?Fiordaliza Fabian, [facility] Flight Deck Officer Electronically Signed Final Report ?? 09/28/2023 11:41 am Narrative 09/28/2023 11:42 AM EDT Abdominal ? (Signed Final 09/28/2023 11:41 am) PATIENT INFO: ID #: ? [id number] ?: ??[birth year] (72 yrs)(F) Name: ? PREMA LEATHA ?Visit Date: 09/28/2023 10:34 am PERFORMED BY: Attending: ?Caren LUTHER, Fiordaliza Prado Resident: ? Madhavi Thomas MD Performed By: ? Joanna Bronson RDMS Referred By: ?IRENE LAMAR Location: ? [place] [facility] Protocol - Abdominal ?54739 Limited Survey Single Organ or Quadrant - [id number] INDICATIONS: cirrhosis, screen for hcc COMPARISON: US [...] 09/28/2023 11:41 am) PATIENT INFO: ID #: [id number] : [birth year] (72 yrs)(F) Name: PREMA SALGADO Visit Date: 09/28/2023 10:34 am PERFORMED BY: Attending: Fiordaliza Fabian MD Resident: Madhavi Thomas MD Performed By: Joanna Bronson RDMS Referred By: IRENE LAMAR Location: [place] [facility] - Hepatology Protocol - Abdominal 50947 Limited Survey Single Organ or Quadrant - [id number] INDICATIONS: cirrhosis, screen for hcc COMPARISON: US [...] signed by: Fiordaliza Fabian MD, [facility] ([phone]), at 09/28/2023 11:34 AM Thank you for letting us participate in the care of this patient. If you are a health care provider and have any questions regarding this report, please contact the number above. For patients who have questions, please contact the health director of healthcare systems that requested your imaging first. Fiordaliza Fabian, E Flight Deck Officer Electronically Signed Final Report 09/28/2023 11:41 am Irene Lamar MD IM US GEN ORDERABLE S * (ABNORMAL) Comprehensive metabolic panel (non-fasting) (03/30/2023 10:23 AM EST) Glucose Lvl 110 65 - 199 mg/dL [facility] Comment:Diabetes: >=200 mg/d L plus symptoms BUN 20(H) 8 - 18 mg/dL [facility] Creatinine 0.82 0.70 - 1.20 mg/dL [facility] Sodium 140 135 - 145 mmol/L [facility] Potassium 4.1 3.5 - 5.0 mmol/L [facility] Comment: Please note: ??Patients with WBC >100,000 may have falsely elevated Potassium levels. ??For accurate Potassium quantification in these patients send serum separator tube (gold top) for subsequent determinations. ??Contact the Clinical Chemistry Laboratory if there are any questions. Chloride 105 98 - 107 mmol/L [facility] CO2 22 22 - 31 mmol/L [facility] Anion Gap 13 5 - 15 mmol/L [facility] Calcium 9.8 8.5 - 10.5 mg/dL [facility] Total Protein 7.2 6.1 - 8.0 g/dL [facility] Albumin 4.4 3.2 - 5.2 g/dL [facility] AST 31(H) 0 - 30 unit/L [facility] ALT 24 0 - 30 unit/L [facility] Alk Phos 64 35 - 105 unit/L [facility] Total Bilirubin 0.7 0.2 - 1.3 mg/dL [facility] Estimated GFR 77 >=60 mL/min/1. 73 m?? [facility] Comment: This patient's estimated GFR [...] Lamar MD CHEMISTRY ORDERABLES Performing Organization Address City/State/[facility] Co de Phone Number [facility] [place] [address] * COLONOSCOPY (02/19/2023 1:47 PM EDT) COLONOSCOPY [facility] Endoscopy Procedure Date: 02/19/2023 1:47 PM ? Patient Name: Prema Salgado ? Date of : 1950 ? Age: 72 ? Order #: [id number] ? Instrument Name: [id number] ? Procedure: ? Colonoscopy Indications: ? Follow-up [...] ? was evaluated using the BBPS ? ([place] Bowel Preparation Scale) ? with scores of: [...] Procedure Code(s): ? --- Professional --- ? 23699, Colonoscopy, flexible; with ? removal of tumor(s), polyp(s), or ? other lesion(s) by snare technique CPT copyright 2021 [employer]. All rights reserved. The codes documented in this report are preliminary and upon mannequin sander and finisher review may be revised to meet current compliance requirements. Attending Participation: ? I personally performed the entire procedure. ? Elin Carlson MD _ Elin Carlson MD 02/19/2023 2:36:53 PM This report has been signed electronically. Number of Addenda: 0 Note Initiated On: 02/19/2023 1:47 PM PROVATION 02/19/2023 1:47 PM EDT Nicolasa Prince APRN GENERAL SURGICAL O RDERABLES Performing Organization Address City/State/[facility] Co de Phone Number PROVATION from Last 3 Months or Most Recently Relevant to Health Maintenance Care Teams Director Medicaid Relationship Specialty Start Date End Date Nicolasa Prince APRN [address] [place] [address] PCP - General Family Medicine 01/08/21
--- OUTSIDE RECORDS SUMMARY | 2023-11-21 18:58 | XMS_ITS | Encounter Summary ---
[facility] [place] [address] Care Team Providers Care Automobile Mechanic Name Role Phone Nicolasa Prince APRN Primary Care Provider +1- [phone] Encounter Details Date Type Department Care Team (Late st Contact Info) Description 12/09/2022 [place] [phone] Mai Larson Social History Tobacco Use Types [...] - 12/09/2022 2:33 PM EDT Cookie Damian [id number] Diagnosis/Indication: 6 mo Please review patient chart [...] your procedure. Who will likely be your peg driver for the procedure? *Please Verify the [...] on filedocumented in this encounter Care Teams Automobile Mechanic Relationship Specialty Start Date End Date Nicolasa Prince APRN [address] [place] [id number] PCP - General Family Medicine 01/08/21 documented as of this encounter
--- OUTSIDE RECORDS SUMMARY | 2023-11-21 18:58 | XMS_ITS | Referral Summary ---
Author Organization [facility] Address [address] [place] [address] Care Team Providers Care Button Sewer Hand Name Role Phone Unavailable Primary Care Provider Unavailabl e Encounters Date Type Department Care Team Description 11/17/2023 Lab Requisition [facility] Pathology & Laboratory Medicine - [facility] [address] [place] [address] Outr Resulting Lab, Provider from Last 3 Months Social History Tobacco Use Types Packs/Day Years Used Date Smoking Tobacco: Never Assessed Sex and Gender Information Value Date Recorded Sex Assigned at Not on file Gender Identity Not on file Sexual Orientation Not on file Plan of Treatment Not on file Procedures Procedure Name Priority Date/Time Associated Diagnosis Comments LYME AB Routine 11/16/2023 9:50 EDT from Last 3 Months Results * LYME AB (11/16/2023 9:50 EDT) Lyme Ab Negative Negative 11/18/2023 11:08 EDT [facility] Blood VENOUS BLOOD / Unknown 11/16/2023 9:50 EDT 11/17/2023 18:10 EDT Provider Outr Resulting Lab IMMUNOLOGY A ND SEROLOGY ORDERABLES [facility] [address] [place] [address] from Last 3 Months
--- OUTSIDE RECORDS SUMMARY | 2023-11-21 18:58 | XMS_ITS | Encounter Summary ---
Author Organization [facility] [place] [address] Care Team Providers Care Podiatric Medicine Professor Name Role Phone Nicolasa Prince APRN Primary Care Provider +1- [phone] Encounter Details Date Type Department Care Team [...] on filedocumented in this encounter Care Teams Podiatric Medicine Professor Relationship Specialty Start Date End Date Nicolasa Prince APRN [address] [place] [address] PCP - General Family Medicine 01/08/21 documented as of this encounter
--- OUTSIDE RECORDS SUMMARY | 2023-11-21 18:58 | XMS_ITS | Encounter Summary ---
Author Organization [facility] [place] [address] Care Team Providers Care Subwarehouse Supervisor Name Role Phone Nicolasa Prince APRN Primary Care Provider +1- [phone] Reason for Visit * Reason Comments Medication Refill Encounter Details Date Type Department Care Team (Late st Contact Info) Description 08/23/2023 Refill [place] [address] Irene Lara MD [facility] [place] [address] Autoimmune hepatitis Social History Tobacco Use Types [...] hepatitis documented in this encounter Care Teams Subwarehouse Supervisor Relationship Specialty Start Date End Date Nicolasa Prince APRN [address] [place] [address] PCP - General Family Medicine 01/08/21 documented as of this encounter
--- OUTSIDE RECORDS SUMMARY | 2023-11-21 18:58 | XMS_ITS | Encounter Summary ---
Author Organization [facility] [place] [address] Care Team Providers Care Electrolysis Engineer Name Role Phone Nicolasa Prince YULIA Primary Care Provider +1- [phone] Encounter Details Date Type Department Care Team (Latest Contact Info) Description 03/30/2023 10:15 AM EST Laboratory Appointment Lab [address] [place] [phone] Primary biliary cholangitis; Hepatic cirrhosis, unspecified hepatic [...] 10:23 AM EST) Neutrophils % 64.6 % [facility] Neutr Abs (ANC) 2.35 1.70 - 6.10 x10(3)/ L [facility] Lymphocytes % 22.9 % [facility] Lymphocytes Abs 0.8(L) 0.9 - 3.2 x10(3)/ L [facility] Monocytes % 10.5 % [facility] Monocyte Abs 0.4 0.3 - 0.9 x10(3)/[facility] Eosinophils % 1.1 % [facility] Eosinophils Abs 0.0 0.0 - 0.4 x10(3)/[facility] LABORATORY Basophils % 0.6 % [facility] Basophils Abs 0.0 0.0 - 0.1 x10(3)/ L [facility] Immature Gran % 0.30 % [facility] Comment: Immature granulocytes(IG's)percentage and absolute count will include metamyelocytes, myelocytes, and promyelocytes. Blood smears from CBCs yielding IG's will be scanned manually for concordance. If this scan disagrees with the automated IG or if promyelocytes are noted, a manual differential will be performed. Sydnee Gran Abs 0.01 0.00 - 0.04 x10(3)/ L [facility] Blood 03/30/2023 10:2 3 AM EST 03/30/2023 10:31 AM EST Narrative Resulting Agency Comment Spec In Lab Irene Lara MD HEMATOLOGY ORDERABLE S [facility] [place] [address] * (ABNORMAL) Hemogram (03/30/2023 10:23 AM EST) WBC 3.6(L) 4.0 - 9.5 x10(3)/[facility] RBC 5.01 4.00 - 5.21 x10(6)/[facility] LABORATORY Hemoglobin 15.8(H) 11.7 - 15.5 g/dL [facility] Hematocrit 46.6(H) 35.7 - 45.8 % [facility] MCV 93.0 82.6 - 94.4 [facility] MCH 31.5 27.1 - 32.0 pg [facility] MCHC 33.9 31.7 - 35.0 g/dL [facility] Platelets 131(L) 145 - 357 x10(3)/[facility] LABORATORY RDWSD 44.9 37.0 - 46.0 [facility]ORY RDWCV 13.2 11.5 - 14.1 % [facility] MPV 10.4 7.6 - 12.9 [facility]ATORY nRBC % Auto 0.0 % [facility] nRBC Abs Auto 0.000 0.000 - 0.000 x10(3)/[facility] Blood 03/30/2023 10:2 3 AM EST 03/30/2023 10:31 AM EST Narrative Resulting Agency Comment Spec In Lab Irene Lara MD HEMATOLOGY ORDERABLE S [facility] [place] [address] * (ABNORMAL) Comprehensive metabolic panel (non-fasting) (03/30/2023 10:23 AM EST) Glucose Lvl 110 65 - 199 mg/dL [facility] Comment:Diabetes: >=200 mg/d L plus symptoms BUN 20(H) 8 - 18 mg/dL [facility] Creatinine 0.82 0.70 - 1.20 mg/dL [facility] Sodium 140 135 - 145 mmol/L [facility] Potassium 4.1 3.5 - 5.0 mmol/L [facility] Comment: Please note: ??Patients with WBC >100,000 may have falsely elevated Potassium levels. ??For accurate Potassium quantification in these patients send serum separator tube (gold top) for subsequent determinations. ??Contact the Clinical Chemistry Laboratory if there are any questions. Chloride 105 98 - 107 mmol/L [facility] CO2 22 22 - 31 mmol/L [facility] Anion Gap 13 5 - 15 mmol/L [facility] Calcium 9.8 8.5 - 10.5 mg/dL [facility] Total Protein 7.2 6.1 - 8.0 g/dL [facility] Albumin 4.4 3.2 - 5.2 g/dL [facility] AST 31(H) 0 - 30 unit/L [facility] ALT 24 0 - 30 unit/L [facility] Alk Phos 64 35 - 105 unit/L [facility] Total Bilirubin 0.7 0.2 - 1.3 mg/dL [facility] Estimated GFR 77 >=60 mL/min/1. 73 m?? [facility] Comment: This patient's estimated GFR [...] Lara MD CHEMISTRY ORDERABLES Performing Organization Address [facility] Phone Number [facility] [place] [address] * Prothrombin Time (03/30/2023 10:23 AM EST) PT 12.0 9.4 - 12.5 sec [facility] INR 1.1 [facility] Comment: An INR <2.0 indicates [...] MD HEMATOLOGY ORDERABLE S Performing Organization Address Page Hospital Number [facility] [place] [address] * AFP tumor marker (03/30/2023 10:23 AM EST) AFP 2.8 <=8.3 ng/mL [facility] Comment: This result was generated using a Mendoza Jonathan immunoassay. ??Results obtained from other methods or manufacturers cannot be used interchangeably with this method. Blood 03/30/2023 10:2 3 AM EST 03/30/2023 10:30 AM EST Narrative Resulting Agency Comment Spec In Lab Irene Lara MD CHEMISTRY ORDERABLES [facility] [place] [address] documented in this encounter Visit Diagnoses Diagnosis Primary biliary cholangitis Hepatic cirrhosis, unspecified hepatic cirrhosis type, unspecified whether ascites present documented in this encounter Care Teams Electrolysis Engineer Relationship Specialty Start Date End Date Nicolasa Prince APRN [address] [place] [address] PCP - General Family Medicine 01/08/21 documented as of this encounter
--- OUTSIDE RECORDS SUMMARY | 2023-11-21 18:58 | XMS_ITS | Encounter Summary ---
Author Organization [facility] Address [facility] [place] [address] Care Team Providers Care Hospice Massage Therapist Name Role Phone Nicolasa Prince APRN Primary Care Provider +1- [phone] Encounter Details Date Type Department Care Team (Late st Contact Info) Description 12/02/2022 Telephone [place] [phone] Irene Lara MD [facility] [place] [address] Social History Tobacco Use Types Packs/Day Years [...] Lara MD Section of Gastroenterology & Hepatology [address] [place] [address] documented in this encounter Plan of Treatment Not on file documented as of this encounter Visit Diagnoses Not on filedocumented in this encounter Care Teams Hospice Massage Therapist Relationship Specialty Start Date End Date Nicolasa Prince APRN [address] [place] [address] PCP - General Family Medicine 01/08/21 documented as of this encounter
--- OUTSIDE RECORDS SUMMARY | 2023-11-21 18:58 | XMS_ITS | Encounter Summary ---
Author Organization [facility] [place] [address] Care Team Providers Care Linotypist Name Role Phone Nicolasa Prince APRN Primary Care Provider +1- [phone] Encounter Details Date Type Department Care Team (Late st Contact Info) Description 11/30/2022 External Results [place] [address] Irene Lara MD [facility] [place] [address] Social History Tobacco Use Types Packs/Day Years [...] 93 AST 27 ALT 28 Historical Provider POINT OF CARE PAMELA T ORDERABLES documented in this encounter Visit Diagnoses Not on filedocumented in this encounter Care Teams Linotypist Relationship Specialty Start Date End Date Nicolasa Prince, YULIA [address] [place] [address] PCP - General Family Medicine 01/08/21 documented as of this encounter
--- OUTSIDE RECORDS SUMMARY | 2023-11-21 18:58 | XMS_ITS | Encounter Summary ---
Author Organization [facility] [place] [address] Care Team Providers Care Systems Architect Name Role Phone Nicolasa Prince APRN Primary Care Provider +1- [phone] Encounter Details Date Type Department Care Team (Late st Contact Info) Description 03/10/2023 Telephone [place] [phone] Irene Lara MD [facility] [place] [address] Social History Tobacco Use Types Packs/Day Years [...] MD Section of Gastroenterology & Hepatology [address] [place] [address] documented in this encounter Plan of Treatment Not on file documented as of this encounter Visit Diagnoses Not on filedocumented in this encounter Care Teams Systems Architect Relationship Specialty Start Date End Date Nicolasa Prince APRN [address] [place] [address] PCP - General Family Medicine 01/08/21 documented as of this encounter
--- OUTSIDE RECORDS SUMMARY | 2023-11-21 18:58 | XMS_ITS | Encounter Summary ---
Author Organization Formerly [facility] [place] [address] Care Team Providers Care Director Of Sustainability Name Role Phone Nicolasa Prince APRN Primary Care Provider +1- [phone] Reason for Visit * Auth/Cert (Routine) Specialty Diagnoses / Procedures Referred By Minh t Referred To Contact Diagnoses Encounter for screening for malignant neoplasm of colon 6 month Procedures PRO COLONOSCOPY, DIAGNOSTIC PRO COLONOSCOPY, BIOPSY PRO COLONOSCOPY, REMV LESN, SNARE PRO ANES, LWR INTESTINE, SCREENING COLONOSCOPY COLONOSCOPY,SCREENING (WRVU 3.26) Elin Carlson MD [facility] [place] [address] [facility] Referral ID Status Reason Start Date Expiration Date Visits Re quested Visits Authorized [id number] 1 1 Encounter Details Date Type Department Care Team (Latest Contact Info) Description 02/19/2023 12:41 PM EDT - 02/19/2023 3:29 PM EDT Hospital Encounter Gastroenterology at [facility] [place] [address] Elin Carlson MD [facility] [place] [address] Discharge Disposition: Home Social History Tobacco Use [...] occurs, please contact your Doctor. Please call [phone] before 8pm Mon-Fri with problems, questions or concerns. If you call after 8pm or on weekends, call the Hospital at [phone] and ask to speak to the Cigarette Making Machine Hopper Feeder personal injury attorney and the radio control crane operator will contact that person for you. When should you call for help? Call 151 anytime you think you may need emergency [...] After Visit Summary and more online at [email or web address] If you would like to provide feedback [...] cost to you. Content Version: 12.2 ?? [id number] [email or web address]. Care instructions adapted under license by [facility]. If you have questions about a medical condition or this instruction, always ask your healthcare professional. [email or web address] disclaims any warranty or liability for your [...] List Diagnosis Code Atherosclerotic heart disease of [place] coronary artery without angina pectoris I25.10 EXAM: [...] 02/19/2023 2:32 PM EDT Colonoscopy, Gauri Zavala ([id number]) 02/19/2023 1:54 PM EDT 6 month COLONOSCOPY Routine 02/19/2023 1:47 PM EDT documented in this encounter Results * Surgical Pathology Report (02/19/2023 2:32 PM EDT) Surgical Pathology Report [id number] ? Location: 4T; EA12; A The signing pathologist has (i) examined the relevant preparation(s) for the specimen(s) and (ii) rendered or confirmed the diagnosis(es). . ?Surgical Pathology DIAGNOSIS A - Ascending colon polyps 2mm, 1mm, resection: - ??Fragments of tubular adenoma. B - Rectal polyp 1mm, resection: - ??Hyperplastic polyp. CR-PX Electronically signed by: ?Per LUTHER, Arpit Verified: ??03/01/2023 16:31 ??Pathologist Performed at: ??-[facility] Dept. of Pathology, [place] [address] Chamfering Machine Operator: Stefan Min MD, FCAP, ??CLIA Certificate: [id number] SPECIMEN(S) SUBMITTED A - ascending colon polyps [...] toto ??in 1 cassette labeled B1. ??sdy [facility] 02/19/2023 2:32 PM EDT Elin Carlson MD PATHOLOGY/CYTOLOGY O RDERABLES [facility] [place] [address] * Specimen to Pathology (02/19/2023 2:32 PM EDT) AP Specimen 02/19/2023 2:32 PM EDT 02/19/2023 2:32 PM EDT Narrative [facility] - 02/19/2023 2:32 PM EDT Specimen requisition ordered. ??Separate Pathology report to follow Elin Carlson MD PATHOLOGY/CYTOLOGY O MEENU Performing Organization Address [facility] [place] [address] * Specimen to Pathology (02/19/2023 2:32 PM EDT) AP Specimen 02/19/2023 2:32 PM EDT 02/19/2023 2:32 PM EDT Narrative [facility] - 02/19/2023 2:32 PM EDT Specimen requisition ordered. ??Separate Pathology report to follow Elin Carlson MD PATHOLOGY/CYTOLOGY Asad CORRIGAN Performing Organization Address [facility] [place] [address] * COLONOSCOPY (02/19/2023 1:47 PM EDT) COLONOSCOPY [facility] Endoscopy Procedure Date: 02/19/2023 1:47 PM ? Patient Name: Cookie Salgado ? Date of : 1950 ? Age: 72 ? Order #: [id number] ? Instrument Name: [id number] ? Procedure: ? Colonoscopy Indications: ? Follow-up [...] ? was evaluated using the BBPS ? ([place] Bowel Preparation Scale) ? with scores of: [...] Procedure Code(s): ? --- Professional --- ? 71322, Colonoscopy, flexible; with ? removal of tumor(s), polyp(s), or ? other lesion(s) by snare technique CPT copyright 2021 [employer]. All rights reserved. The codes documented in this report are preliminary and upon bale tie machine operator review may be revised to meet current compliance requirements. Attending Participation: ? I personally performed the entire procedure. ? Elin Carlson MD _ Elin Carlson MD 02/19/2023 2:36:53 PM This report has been signed electronically. Number of Addenda: 0 Note Initiated On: 02/19/2023 1:47 PM PROVATION 02/19/2023 1:47 PM EDT Nicolasa Prince ENVIRONMENTAL PROGRAMS SPECIALIST GENERAL SURGICAL O RDERABLES PROVATION documented in [...] RN) documented in this encounter Care Teams Director Of Sustainability Relationship Specialty Start Date End Date Nicolasa Prince, ENVIRONMENTAL PROGRAMS SPECIALIST [address] [place] [address] PCP - General Family Medicine 01/08/21 documented as of this encounter
--- OUTSIDE RECORDS SUMMARY | 2023-11-21 18:58 | XMS_ITS | Encounter Summary ---
Author Organization [facility] Address [facility] [place] [address] Care Team Providers Care Medical Reception Specialist Name Role Phone Nicolasa Prince YULIA Primary Care Provider +1- [phone] Encounter Details Date Type Department Care Team (Latest Contact Info) Description 09/28/2023 10:06 AM EDT - 09/28/2023 11:59 PM EDT Hospital Encounter [place] [phone] Carolynn Lamar MD [facility] [place] [address] Biliary cirrhosis Discharge Disposition: Home Social History [...] BY MOUTH TWICE DAILY 180 tablet 08/23/2023 11/20/2023 documented as of this encounter Plan of Treatment Not on file documented as of this encounter Procedures Procedure Name Priority Date/Time Associated Diagnosis Comments US ABDOMEN LIMITED HEPATOLOGY PROTOCOL Routine 09/28/2023 10:54 AM EDT Biliary cirrhosis documented in this encounter Results * US Abdomen Limited Hepatology Protocol (09/28/2023 10:54 AM EDT) WORKSTATION ID [id number] RAD Anatomical Region Laterality Modality Abdomen Ultrasound [...] AM Electronically signed by: Fiordaliza Fabian MD, [facility] ([phone]), at 09/28/2023 11:34 AM Thank you for letting us participate in the care of this patient. If you are a health care provider and have any questions regarding this report, please contact the number above. For patients who have questions, please contact the health manager progressive care that requested your imaging first. ?Fiordaliza Fabian Hai Finish Remover Electronically Signed Final Report ?? 09/28/2023 11:41 am Narrative 09/28/2023 11:42 AM EDT Abdominal ? (Signed Final 09/28/2023 11:41 am) PATIENT INFO: ID #: ? [id number] ?: ??[birth year] (72 yrs)(F) Name: ? PREMA LEATHA ?Visit Date: 09/28/2023 10:34 am PERFORMED BY: Attending: ?Caren LUTHER, Fiordaliza Prado Resident: ? Madhavi Thomas MD Performed By: ? Joanna Bronson RDMS Referred By: [facility] Location: ? [place] SERVICE(S) PROVIDED: [facility] - Hepatology Protocol - Abdominal ?22937 Limited Survey Single Organ or Quadrant - [id number] INDICATIONS: cirrhosis, screen for hcc COMPARISON: US [...] 09/28/2023 11:41 am) PATIENT INFO: ID #: [id number] : [birth year] (72 yrs)(F) Name: PREMA SALGADO Visit Date: 09/28/2023 10:34 am PERFORMED BY: Attending: Fiordaliza Fabian MD Resident: Madhavi Thomas MD Performed By: Joanan Bronson RDMS Referred By: CAROLYNN LAMAR Location: [place] SERVICE(S) PROVIDED: [facility] - Hepatology Protocol - Abdominal 71623 Limited Survey Single Organ or Quadrant - [id number] INDICATIONS: cirrhosis, screen for hcc COMPARISON: US [...] AM Electronically signed by: Fiordaliza Fabian MD, [facility] ([phone]), at 09/28/2023 11:34 AM Thank you for letting us participate in the care of this patient. If you are a health care provider and have any questions regarding this report, please contact the number above. For patients who have questions, please contact the health manager progressive care that requested your imaging first. Fiordaliza Fabian, [facility] Finish Remover Electronically Signed Final Report 09/28/2023 11:41 am Carolynn Lamar MD IMG GEN ORDERABLE S documented in this encounter Visit Diagnoses Diagnosis Biliary cirrhosis documented in this encounter Care Teams Medical Reception Specialist Relationship Specialty Start Date End Date Nicolasa Prince, MEDICAL LABORATORY TECHNICIAN [address] [place] [address] PCP - General Family Medicine 01/08/21 documented as of this encounter
--- OUTSIDE RECORDS SUMMARY | 2023-11-21 18:58 | XMS_ITS | Clinical Summary ---
Author Organization [facility] Address [address] [place] [address] Care Team Providers Care Commercial Lender Name Role Phone Unavailable Primary Care Provider Unavailabl e Encounters Date Type Department Care Team Description 11/17/2023 Lab Requisition [facility] Pathology & [place] [address] Outr Resulting Lab, Provider from Last 3 [...] Screening 2017 COVID-19 Vaccine (2022-24 season) 2023 Procedures Procedure Name Priority Date/Time Associated Diagnosis Comments LYME AB Routine 11/16/2023 9:50 EDT from Last 3 Months Results * LYME AB (11/16/2023 9:50 EDT) Lyme Ab Negative Negative 11/18/2023 11:08 EDT [facility] Blood VENOUS BLOOD / Unknown 11/16/2023 9:50 EDT 11/17/2023 18:10 EDT Provider Outr Resulting Lab IMMUNOLOGY A ND SEROLOGY ORDERABLES [facility] [address] [place] [address] from Last 3 Months
--- OUTSIDE RECORDS SUMMARY | 2023-11-21 18:58 | XMS_ITS | Encounter Summary ---
Author Organization [facility] [place] [address] Care Team Providers Care Contact Centre Supervisor Name Role Phone Nicolasa Prince APRN Primary Care Provider +1- [phone] Encounter Details Date Type Department Care Team (Late st Contact Info) Description 03/09/2023 External [place] [phone] Isabela March RN Social History Tobacco Use [...] INR 1.00 EXTERNAL LAB 03/01/2023 Historical Provider POINT OF CARE PAMELA T ORDERABLES EXTERNAL LAB documented in this encounter Visit Diagnoses Not on filedocumented in this encounter Care Teams Contact Centre Supervisor Relationship Specialty Start Date End Date Nicolasa Prince, CHEESE WEIGHER [address] [place] [address] PCP - General Family Medicine 01/08/21 documented as of this encounter
--- OUTSIDE RECORDS SUMMARY | 2023-11-21 18:58 | XMS_ITS | Encounter Summary ---
Author Organization [facility] Address [facility] [place] [address] Care Team Providers Care Graphics Specialist Name Role Phone Nicolasa Prince APRN Primary Care Provider +1- [phone] Encounter Details Date Type Department Care Team (Late st Contact Info) Description 11/02/2022 External Results Gastroenterology at [facility] [place] [address] Irene Lara MD [facility] [place] [address] Social History Tobacco Use Types Packs/Day Years [...] 86 AST 32 ALT 31 Historical Provider POINT OF CARE PAMELA T ORDERABLES documented in this encounter Visit Diagnoses Not on filedocumented in this encounter Care Teams Graphics Specialist Relationship Specialty Start Date End Date iNcolasa Prince APRN [address] [place] [address] PCP - General Family Medicine 01/08/21 documented as of this encounter
--- OUTSIDE RECORDS SUMMARY | 2023-11-21 18:58 | XMS_ITS | Encounter Summary ---
Author [facility] [place] [address] Care Team Providers Care Capping Machine Operator Name Role Phone Nicolasa Prince APRN Primary Care Provider +1- [phone] Encounter Details Date Type Department Care Team [...] on filedocumented in this encounter Care Teams Capping Machine Operator Relationship Specialty Start Date End Date Nicolasa Prince APRN [address] [place] [address] PCP - General Family Medicine 01/08/21 documented as of this encounter
--- OUTSIDE RECORDS SUMMARY | 2023-11-21 18:59 | XMS_ITS | Encounter Summary ---
Author Organization [facility] [address] Care Team Providers Care Obstetrics Gynecology Md Name Role Phone Nicolasa Prince APRN Primary Care Provider +1- [phone] Encounter Details Date Type Department Care Team (Late st Contact Info) Description 01/22/2021 Telephone Cardiology at [address] [phone] Lorie Garza, JAY Social History Tobacco Use [...] on filedocumented in this encounter Care Teams Obstetrics Gynecology Md Relationship Specialty Start Date End Date Nicolasa Prince APRN [address] [place] [address] PCP - General Family Medicine 01/08/21 documented as of this encounter
--- OUTSIDE RECORDS SUMMARY | 2023-11-21 18:59 | XMS_ITS | Encounter Summary ---
[facility] [place] [address] Care Team Providers Care Equipment Tech Name Role Phone Nicolasa Prince APRN Primary Care Provider +1- [phone] Encounter Details Date Type Department Care Team (Late Contact Info) Description 09/04/2021 Telephone [place] [phone] Thania Wilson, RN Social History Tobacco Use [...] at 09/03/2021 10:04 AM EDT ----- No [facility] account. AIH/PBC- recently cut azathioprine dose. Could you call her and ask to repeat labs in 4 weeks? Thanks irene 09/04 Called pt; had to leave [facility]. Nurse contact info provided. Need to confirm current aza dose. 09/18 Called pt; she is scheduled for 09/25 blood draw at her PCP. Will plan to request those results. documented in this encounter Plan of Treatment Not on file documented as of this encounter Visit Diagnoses Not on filedocumented in this encounter Care Teams Equipment Tech Relationship Specialty Start Date End Date Nicolasa Prince, BIOINFORMATICIAN [address] [place] [address] PCP - General Family Medicine 01/08/21 documented as of this encounter
--- OUTSIDE RECORDS SUMMARY | 2023-11-21 18:59 | XMS_ITS | Encounter Summary ---
Author Organization [facility] Address [facility] [place] [address] Care Team Providers Care King Maker Name Role Phone Nicolasa Prince APRN Primary Care Provider +1- [phone] Encounter Details Date Type Department Care Team (Late st Contact Info) Description 10/29/2021 Orders [place] [address] Irene Lara MD [facility] [place] [address] Type 2 diabetes mellitus with other specified complication, unspecified whether senior care insulin use Social History Tobacco Use Types [...] (ABNORMAL) Hemoglobin A1c (02/10/2022 11:06 AM EDT) [facility] Hemoglobin A1C 7.0(H) 4.3 - 5.6 % [...] Mellitus, Diabetes Care 2013; 36: Suppl. 1, S62-92 Est Avg Gluc 155 mg/dL [facility] Comment: eAG equivalents for [...] available on the ADA website. Herman REED, Klelie J, Ann R, et al. ??Translating the A1C assay into estimated average glucose values. ??Diabetes Care 2008:31(8):3683-9507. Blood 02/10/2022 11:0 6 AM EDT 02/10/2022 11:10 AM EDT Narrative Resulting Agency Comment Spec In Lab Irene Lara MD CHEMISTRY ORDERABLES [facility] [place] [address] documented in this encounter Visit Diagnoses Diagnosis Type 2 diabetes mellitus with other specified complication, unspecified whether terminal gauger insulin use documented in this encounter Care Teams King Maker Relationship Specialty Start Date End Date Nicolasa Prince APRN [address] [address] PCP - General Family Medicine 01/08/21 documented as of this encounter
--- OUTSIDE RECORDS SUMMARY | 2023-11-21 18:59 | XMS_ITS | Encounter Summary ---
Author Organization [facility] [place] [address] Care Team Providers Care Electronics Mechanic Name Role Phone Nicolasa Prince YULIA Primary Care Provider +1- [phone] Reason for Visit * Auth/Cert (Routine) Specialty [...] Carlson MD [facility] [place] [address] [facility] Referral ID Status Reason Start Date Expiration Date Visits Re quested Visits Authorized [id number] 1 1 Encounter Details Date Type Department Care Team (Latest Contact Info) Description 08/07/2022 12:50 PM EDT - 08/07/2022 4:14 PM EDT Hospital Encounter Gastroenterology at [place] [address] Elin Carlson MD [facility] [place] [address] Discharge Disposition: Home Social History Tobacco Use [...] the day after the test, use an nufn-olm-yqoksmg spray or lozenges to numbyour throat. Warm [...] occurs, please contact your doctor. Please call [phone] before 8pm Mon-Fri with problems, questions, or concerns. If you call after 8pm or on weekends, call the Hospital at [phone] and ask for the Cylinder Machine Operator Pulp Drier director long term care and the mop machine operator will contact that person for [...] more? You can view health information on [employer]ulu, your personal patient account. Log in or sign up today. Content Version: 12.2 ?? 1159-0839 [employer]. Care instructions adapted under license by [facility]. If you have questions about a medical condition or this instruction, always ask your healthcare professional. [employer] disclaims any warranty or liability for your [...] Diagnosis Code ??? Atherosclerotic heart disease of [place] coronary artery without angina pectoris I25.10 EXAM: [...] 2:57 PM EDT Colonoscopy, Flex, W/Control, Bleeding (13263) 08/07/2022 2:21 PM EDT Hepatic cirrhosis, unspecified hepatic cirrhosis type, unspecified whether ascites present Screening for colon cancer Colonoscpy, Flex, W/Dir Submuc Inject (71252) 08/07/2022 2:21 PM EDT Hepatic cirrhosis, unspecified hepatic cirrhosis type, unspecified whether ascites present Screening for colon cancer Colonoscopy, Remv [place], Snare (07432) 08/07/2022 2:21 PM EDT Hepatic cirrhosis, unspecified hepatic cirrhosis type, unspecified whether ascites present Screening for colon cancer Upper GI Endoscopy, Diagnostic (25933) 08/07/2022 2:21 PM EDT Hepatic cirrhosis, unspecified hepatic cirrhosis type, unspecified whether ascites present Screening for colon cancer UPPER GI ENDOSCOPY Routine 08/07/2022 2: 10 PM EDT COLONOSCOPY Routine 08/07/2022 2:10 PM EDT documented in this encounter Results * Specimen to Pathology (08/07/2022 3:25 PM EDT) AP Specimen 08/07/2022 3:25 PM EDT 08/07/2022 3:25 PM EDT Narrative [facility] - 08/07/2022 3:25 PM EDT Specimen requisition ordered. ??Separate Pathology report to follow Elin Carlson MD PATHOLOGY/CYTOLOGY O MEENU Performing Organization Address [facility] [employer] de Phone Number [facility] [place] [address] * Specimen to Pathology (08/07/2022 3:25 PM EDT) AP Specimen 08/07/2022 3:25 PM EDT 08/07/2022 3:25 PM EDT Narrative [facility] - 08/07/2022 3:25 PM EDT Specimen requisition ordered. ??Separate Pathology report to follow Elin Carlson MD PATHOLOGY/CYTOLOGY O RDMILLIE Performing Organization Address [facility] [employer] [place] [address] * Surgical Pathology Report (08/07/2022 2:57 PM EDT) Pathologist [facility] Surgical Pathology Report [id number] ? Location: 4T; EA12; A The signing [...] Arpit Verified: ??08/26/2022 16:10 ??Pathologist Performed at: ??-[facility] Dept. of Pathology, [place] [address] Management Supervisor: Stefan Min MD, FCAP, ??CLIA Certificate: [id number] SPECIMEN(S) SUBMITTED A - transverse colon polyp, [...] toto ??in 2 cassettes labeled B1-B2. ??shb [facility] 08/07/2022 2:57 PM EDT Elin Carlson MD PATHOLOGY/CYTOLOGY [place] [address] * UPPER GI ENDOSCOPY (08/07/2022 2:10 PM EDT) Pathologist [facility] UPPER GI ENDOSCOPY [facility] Endoscopy Procedure Date: 08/07/2022 2:10 PM ? Patient Name: Cookie Salgado ? Date of : 1950 ? Age: 71 ? Order #: [id number] ? Instrument Name: [id number]- [id number] ? Procedure: ? Upper GI endoscopy Indications: [...] PROVATION 08/07/2022 2:10 PM EDT Nicolasa Prince FAMILY RESOURCE COORDINATOR GENERAL SURGICAL O RDERABLES PROVATION * COLONOSCOPY (08/07/2022 2:10 PM EDT) COLONOSCOPY [facility] Endoscopy Procedure Date: 08/07/2022 2:10 PM ? Patient Name: Cookie Salgado ? Date of : 1950 ? Age: 71 ? Order #: [id number] ? Instrument Name: [id number]- [id number] ? Procedure: ? Colonoscopy Indications: ? Screening [...] ? was evaluated using the BBPS ? ([place] Bowel Preparation Scale) ? with scores of: [...] Procedure Code(s): ? --- Professional --- ? 76701, Colonoscopy, flexible; with ? endoscopic mucosal resection ? 52675, 59, Colonoscopy, flexible; ? with removal of tumor(s), polyp(s), ? or other lesion(s) by snare ? technique CPT copyright 2021 [employer]. All rights reserved. The codes documented in this report are preliminary and upon water resources project manager review may be revised to meet current [...] RN) documented in this encounter Care Teams Electronics Mechanic Relationship Specialty Start Date End Date Nicolasa Prince, FAMILY RESOURCE COORDINATOR [address] [place] [address] PCP - General Family Medicine 01/08/21 documented as of this encounter
--- OUTSIDE RECORDS SUMMARY | 2023-11-21 18:59 | XMS_ITS | Encounter Summary ---
Author Organization Replaced By [facility] Address [facility] [place] [address] Care Team Providers Care Personal Banking Advisor Name Role Phone Nicolasa Prince YULIA Primary Care Provider +1- [phone] Encounter Details Date Type Department Care Team (Latest Contact Info) Description 02/10/2022 9:51 AM EDT - 02/10/2022 11:59 PM EDT Hospital Encounter [place] [phone] Carolynn Lamar MD [facility] [place] [address] Primary biliary cholangitis; Hepatic cirrhosis, unspecified hepatic [...] dilatation. Electronically signed by: Fiordaliza Fabian MD, [facility] ([phone]), at 02/10/2022 10:32 AM Thank you for letting us participate in the care of this patient. If you are a health care provider and have any questions regarding this report, please contact the number above. For patients who have questions, please contact the health primary care sales representative that requested your imaging first. ? Fiordaliza Fabian, Staff Physician Electronically Signed Final Report ?? 02/10/2022 10:39 am Narrative 02/10/2022 10:39 AM EDT Abdominal ? (Signed Final 02/10/2022 10:39 am) PATIENT INFO: ID #: ? [id number] ?: ??[birth year] (71 yrs)(F) Name: ? PREMA SALGADO ?Visit Date: 02/10/2022 10:18 am PERFORMED BY: Performed By: ? Sarahi Flores RDMS Attending: ?Caren LUTHER, Fiordaliza Prado Referred By: ?CAROLYNN LAMAR Location: ? [place] SERVICE(S) PROVIDED: [facility] - Hepatology Protocol - Abdominal ?33187 Limited Survey Single Organ or Quadrant - [id number] INDICATIONS: Cirrhosis, screen for HCC COMPARISON: MRI [...] 02/10/2022 10:39 am) PATIENT INFO: ID #: [id number] : 54 (71 yrs)(F) Name: PREMA SALGADO Visit Date: 02/10/2022 10:18 am PERFORMED BY: Performed By: Sarahi Flores RDMS Attending: Fiordaliza Fabian MD Referred By: CAROLYNN LAMAR Location: [place] [facility] - Hepat[facility] Protocol - Abdominal 86923 Limited Survey Single Organ or Quadrant - [id number] INDICATIONS: Cirrhosis, screen for HCC COMPARISON: MRI [...] dilatation. Electronically signed by: Fiordaliza Fabian MD, [facility] ([phone]), at 02/10/2022 10:32 AM Thank you for letting us participate in the care of this patient. If you are a health care provider and have any questions regarding this report, please contact the number above. For patients who have questions, please contact the health primary care sales representative that requested your imaging first. Fiordaliza Fabian, Staff Physician Electronically Signed Final Report 02/10/2022 10:39 am Carolynn Lamar MD IMG US GEN ORDERABLE S documented in this encounter Visit Diagnoses Diagnosis Primary biliary cholangitis Hepatic cirrhosis, unspecified hepatic cirrhosis type, unspecified whether ascites present documented in this encounter Care Teams Personal Banking Advisor Relationship Specialty Start Date End Date Suresh Nicolasa Chan, YULIA [address] [place] [address] PCP - General Family Medicine 01/08/21 documented as of this encounter
--- OUTSIDE RECORDS SUMMARY | 2023-11-21 18:59 | XMS_ITS | Encounter Summary ---
Author Organization Formerly [facility] [place] [address] Care Team Providers Care Saddle Mechanic Name Role Phone Nicolasa Prince APRN Primary Care Provider +1- [phone] Reason for Visit * Reason Comments Medication Refill Encounter Details Date Type Department Care Team (Late st Contact Info) Description 07/17/2022 [place]ill [place] [address] Irene Lara MD [facility] [place] [address] Autoimmune hepatitis Social History Tobacco Use Types [...] labs. She would like orders faxed to [facility]. Orders sent. Provided patient with contact information for [facility] Lab. documented in this encounter Plan of Treatment Not on file documented as of this encounter Visit Diagnoses Diagnosis Autoimmune hepatitis documented in this encounter Care Teams Saddle Mechanic Relationship Specialty Start Date End Date Nicolasa Prince APRN [address] [place] [address] PCP - General Family Medicine 01/08/21 documented as of this encounter
--- OUTSIDE RECORDS SUMMARY | 2023-11-21 18:59 | XMS_ITS | Encounter Summary ---
Author Organization Formerly [facility] [place] [address] Care Team Providers Care Grid Casting Machine Operator Helper Name Role Phone Nicolasa Prince APRN Primary Care Provider +1- [phone] Encounter Details Date Type Department Care Team (Late st Contact Info) Description 07/22/2021 1:30 PM EDT Office Visit [place] [address] Carolynn Lamar MD [facility] [place] [address] Primary biliary cholangitis; Type 2 diabetes mellitus [...] [place] and she was managed by a ore tester at [facility]. Her records were extensively reviewed today in [...] been normal sinceapproximately 2017. She moved to [place] about a year ago. She is living [...] Lamar MD Section of Gastroenterology & Hepatology [address] [place] [address] Cc: Nicolasa Prince APRN SURGICAL PATHOLOGY REPORT ? Patient: PREMA SALGADO ?MR #: [id number] ?Submitted by: Elie Moreno MD FINAL DIAGNOSIS [...] the ductules cannot be definitively distinguished from lummi bile ducts. ??There is patchy periportal hepatocellular [...] a prior liver biopsy reviewed at [facility] (see accession number [id number]), although the slides are not available for [...] dilatation. Electronically signed by: Fiordaliza Fabian MD, [facility] ([phone]), at 02/10/2022 10:32 AM Thank you for letting us participate in the care of this patient. If you are a health care provider and have any questions regarding this report, please contact the number above. For patients who have questions, please contact the health career technical education teacher that requested your imaging first. ? Fiordaliza Fabian, Staff Physician Electronically Signed Final Report ?? 02/10/2022 10:39 am Narrative 02/10/2022 10:39 AM EDT Abdominal ? (Signed Final 02/10/2022 10:39 am) PATIENT INFO: ID #: ? [id number] ?: ??[birth year] (71 yrs)(F) Name: ? PREMA SALGADO ?Visit Date: 02/10/2022 10:18 am PERFORMED BY: Performed By: ? Sarahi Flores RDMS Attending: ?Caren LUTHER, Fiordaliza Prado Referred By: ?CAROLYNN HENSLEYR Location: ? [place] [facility] - Hep[facility] Protocol - Abdominal ?64511 Limited Survey Single Organ or Quadrant - [id number] INDICATIONS: Cirrhosis, screen for HCC COMPARISON: MRI [...] 02/10/2022 10:39 am) PATIENT INFO: ID #: [id number] : 54 (71 yrs)(F) Name: PREMA SALGADO Visit Date: 02/10/2022 10:18 am PERFORMED BY: Performed By: Sarahi Flores RDMS Attending: Fiordaliza Fabina MD Referred By: CAROLYNN LAMAR Location: [place] SERVICE(S) PROVIDED: [facility] - Hepatology Protocol - Abdominal 48849 Limited Survey Single Organ or Quadrant - [id number] INDICATIONS: Cirrhosis, screen for HCC COMPARISON: MRI [...] 3. No cholelithiasis or biliary ductal dilatation. Thank you for letting us participate in the care of this patient. If you are a health care provider and have any questions regarding this report, please contact the number above. For patients who have questions, please contact the health career technical education teacher that requested your imaging first. Fiordaliza Fabian, Staff Physician Electronically Signed Final Report 02/10/2022 10:39 am Carolynn Lamar MD IMG US GEN ORDERABLE S * Prothrombin Time (07/22/2021 11:40 AM EDT) PT 11.6 9.4 - 12.5 sec [facility] INR 1.0 [facility] Comment: An INR <2.0 indicates [...] HEMATOLOGY ORDERABLE S Performing Organization Address [facility] Co de Phone Number [facility] [place] [address] * AFP tumor marker (07/22/2021 11:40 AM EDT) AFP 3.4 <=8.3 ng/mL [facility] Blood 07/22/2021 11:4 0 AM EDT 07/22/2021 11:55 AM EDT Narrative Resulting Agency Comment Spec In Lab Carolynn Lamar MD CHEMISTRY ORDERABLES Performing Organization Address [facility]/ZIP Co de Phone Number [facility] [place] [address] * (ABNORMAL) Comprehensive metabolic panel (non-fasting) (07/22/2021 11:40 AM EDT) Glucose Lvl 156 65 - 199 mg/dL [facility] Comment:Diabetes: >=200 mg/d L plus symptoms BUN 23(H) 8 - 18 mg/dL [facility] Creatinine 0.88 0.70 - 1.20 mg/dL [facility] Sodium 135 135 - 145 mmol/L [facility] Potassium 4.4 3.5 - 5.0 mmol/L [facility] Comment: Please note: ??Patients with WBC >100,000 may have falsely elevated Potassium levels. ??For accurate Potassium quantification in these patients send serum separator tube (gold top) for subsequent determinations. ??Contact the Clinical Chemistry Laboratory if there are any questions. Chloride 104 98 - 107 mmol/L [facility] CO2 18(L) 22 - 31 mmol/L [facility] Anion Gap 13 5 - 15 mmol/L [facility] Calcium 10.0 8.5 - 10.5 mg/dL [facility] Total Protein 7.8 6.1 - 8.0 g/dL [facility] Albumin 4.5 3.2 - 5.2 g/dL [facility] AST 29 0 - 30 unit/L [facility] ALT 26 0 - 30 unit/L [facility] Alk Phos 89 35 - 105 unit/L [facility] Total Bilirubin 0.7 0.2 - 1.3 mg/dL [facility] Estimated GFR 68 >=60 mL/min/1. 73 m?? [facility] Comment: This patient? s estimated [...] Lamar MD CHEMISTRY ORDERABLES Performing Organization Address City/State/[facility] Co de Phone Number [facility] [place] [address] documented in this encounter Visit Diagnoses Diagnosis Primary biliary cholangitis Type 2 diabetes mellitus without complication, without long-term current use of insulin Hepatic cirrhosis, unspecified hepatic cirrhosis type, unspecified whether ascites present Primary biliary cholangitis Hepatic cirrhosis, unspecified hepatic cirrhosis type, unspecified whether ascites present documented in this encounter Care Teams Grid Casting Machine Operator Helper Relationship Specialty Start Date End Date Nicolasa Prince APRN [address] [place] [address] PCP - General Family Medicine 01/08/21 documented as of this encounter
--- OUTSIDE RECORDS SUMMARY | 2023-11-21 18:59 | XMS_ITS | Encounter Summary ---
[facility] [place] [address] Care Team Providers Care Pole Peeling Machine Operator Name Role Phone Nicolasa Prince APRN Primary Care Provider +1- [phone] Encounter Details Date Type Department Care Team (Late st Contact Info) Description 06/09/2022 Telephone [place] [phone] Mai Larson Social History Tobacco Use Types Packs/Day Years Used Date Smoking Tobacco: Former Smokeless Tobacco: Never Sex and Gender Information Value Date Recorded Sex Assigned at Not on file Gender Identity Not on file Sexual Orientation Not on file documented as of this encounter Miscellaneous Notes * Telephone Encounter - Mai Larson - 06/09/2022 10:01 AM EST Cookie Salgado [id number] Diagnosis/Indication: cirrhosis screen for varices, screening colonoscopy [...] Upper Endoscopy & Colonoscopy before? Yes: Date [facility], 5.5 years ago, doesn't remember what hospital [...] No 18. You must have a responsible republican who will drive you to your procedure, stay on campus for the entire duration of your procedure, and drive you home from your procedure. Who will likely be your wheelchair driver for the procedure? *Please Verify the [...] on filedocumented in this encounter Care Teams Pole Peeling Machine Operator Relationship Specialty Start Date End Date Nicolasa Prince APRN [address] [place] [address] PCP - General Family Medicine 01/08/21 documented as of this encounter
--- OUTSIDE RECORDS SUMMARY | 2023-11-21 18:59 | XMS_ITS | Encounter Summary ---
Author Organization [facility] [place] [address] Care Team Providers Care Remelt Worker Name Role Phone Nicolasa Prince APRN Primary Care Provider +1- [phone] Encounter Details Date Type Department Care Team [...] on filedocumented in this encounter Care Teams Remelt Worker Relationship Specialty Start Date End Date Nicolasa Prince APRN [address] [place] [address] PCP - General Family Medicine 01/08/21 documented as of this encounter
--- OUTSIDE RECORDS SUMMARY | 2023-11-21 18:59 | XMS_ITS | Encounter Summary ---
Author Organization [facility] [place] [address] Care Team Providers Care Kineseologist Name Role Phone Nicolasa Prince APRN Primary Care Provider +1- [phone] Encounter Details Date Type Department Care Team (Late st Contact Info) Description 07/22/2022 External Results Gastroenterology at [facility] [place] [address] [facility] [place] [address] Social History Tobacco Use Types Packs/Day Years [...] 90 AST 28 ALT 29 Historical Provider POINT OF CARE PAMELA T ORDERABLES documented in this encounter Visit Diagnoses Not on filedocumented in this encounter Care Teams Kineseologist Relationship Specialty Start Date End Date Nicolasa Prince APRN [address] [place] [address] PCP - General Family Medicine 01/08/21 documented as of this encounter
--- OUTSIDE RECORDS SUMMARY | 2023-11-21 18:59 | XMS_ITS | Encounter Summary ---
[place] [address] Care Team Providers Care Research And Development Director Name Role Phone Nicolasa Prince APRN Primary Care Provider +1- [phone] Reason for Referral * Diagnostic Test (Routine) - Closed Specialty Diagnoses / Procedures Referred By Minh miguel Referred To Contact Radiology Diagnoses Primary biliary cholangitis Procedures MRI Abdomen wwo Contrast (Generic) Harmony Dobson APRN [facility] [place] [place] [address] [place] [address] Referral ID Status Reason Start Date Expiration Date V isits Requested Visits Authorized [id number] Closed Specialty Service Requested 02/19/2021 08/20/2022 1 1 Reason for Visit * Reason Comments GI Problem * Consultation (Routine) - Closed Specialty Diagnoses / Procedures Referred By Minh miguel Referred To Contact Gastroenterology Diagnoses Primary biliary cirrhosis Primary biliary cirrhosis Nicolasa Prinec APRN [address] [place] [address] [facility] [address] [place] [address] Referral ID Status Reason Start Date Expiration Date V isits Requested Visits Authorized [id number] Closed Consult, Test & Treat Connection Center PCP Updated and/or Approved 12/25/2020 06/27/2021 6 6 Encounter Details Date Type Department Care Team (Late st Contact Info) Description 02/19/2021 9:00 AM EDT Office [place] [address] Harmony Dobson APRN [facility] [place] [address] Primary biliary cholangitis; Hepatic cirrhosis, unspecified hepatic [...] HEPATOLOGY NEW PATIENT CONSULTATION Cookie Salgado 1950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 year old female with history of Primary biliary cholangitis who presents today to establish care for her PBC. She was previously followed by hepatology in [place] and recently moved to [place]. She was last followed by GI at [place] - Dr. Yasmin Fletcher. Takes Ursodiol 500mg [...] though she has cirrhosis. She moved to [place] at end of October 2020. She is living in [place] [facility] with her brother and has had anumber [...] T2 correlate or washout/pseudocapsule (LI-RADS 3). A enrollment representative lesion is seen on series 9 [...] D3,) 50 mcg (2,000 unit) [facility] ??? losartan (Cozaar) 50 mg Tablet ??? Ursodiol (ACTIGALL) 500 mg Tablet 1,000 mg. ??? Azasan 75 mg Tablet ??? Jardiance 25 mg Tablet ??? fenofibrate (TRICOR) 145 mg Tablet ??? Tradjenta 5 mg Tablet ALLERGIES Allergies Allergen Reactions ??? Amoxicillin ??? Ciprofloxacin ??? Egg Derived Other (See Comments) Also Egg ??? 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 Lives near 2 brothers. Alcohol: [...] T2 correlate or washout/pseudocapsule (LI-RADS 3). A enrollment representative lesion is seen on series 9 [...] previously followed by Dr. Yasmin Woodson at [facility] and has been on a relatively [...] Dobson APRN Section of Gastroenterology [place] [address] Copy: Nicolasa Prince APRN [address] / [facility] [address] documented in this encounter Plan of Treatment [...] who have questions please contact the health wound care technician that requested your imaging first. ? Narrative 07/22/2021 11:29 AM EDT EXAMINATION: MRI [...] patients who have questions please contactthe health wound care technician that requested your imaging first. Harmony Dobson CAISSON WORKER IMG MRI ORDERABLES * Differential, Automated (02/19/2021 10:54 AM EDT) Neutrophils % 65.2 % [facility] Neutr Abs (ANC) 3.05 1.70 - 6.10 x10(3)/[facility] Lymphocytes % 23.9 % [facility] Lymphocytes Abs 1.1 0.9 - 3.2 x10(3)/[facility] Monocytes % 8.8 % [facility] Monocyte Abs 0.4 0.3 - 0.9 x10(3)/[facility] Eosinophils % 1.3 % [facility] Eosinophils Abs 0.1 0.0 - 0.4 x10(3)/[facility] Basophils % 0.6 % [facility] Basophils Abs 0.0 0.0 - 0.1 x10(3)/[facility] Immature Gran % 0.20 % [facility] Comment: Immature granulocytes(IG's)percentage and absolute count will include metamyelocytes, myelocytes, and promyelocytes. Blood smears from CBCs yielding IG's will be scanned manually for concordance. If this scan disagrees with the automated IG or if promyelocytes are noted, a manual differential will be performed. Sydnee Gran Abs 0.01 0.00 - 0.04 x10(3)/[facility] Blood 02/19/2021 10:5 4 AM EDT 02/19/2021 11:02 AM EDT Narrative Resulting Agency Comment Spec In Lab Harmony Dobson CAISSON WORKER HEMATOLOGY ORDERAB LES [facility] [place] [address] * (ABNORMAL) Hemogram (02/19/2021 10:54 AM EDT) [facility] Signature WBC 4.7 4.0 - 9.5 x10(3)/[facility] RBC 5.15 4.00 - 5.21 x10(6)/[facility] Hemoglobin 16.6(H) 11.7 - 15.5 g/dL [facility] Hematocrit 48.4(H) 35.7 - 45.8 % [facility] MCV 94.0 82.6 - 94.4 [facility] MCH 32.2(H) 27.1 - 32.0 pg [facility] MCHC 34.3 31.7 - 35.0 g/dL [facility] Platelets 146 145 - 357 x10(3)/[facility] RDWSD 46.0 37.0 - 46.0 [facility] RDWCV 13.3 11.5 - 14.1 % [facility] MPV 10.6 7.6 - 12.9 [facility] nRBC % Auto 0.0 % [facility] nRBC Abs Auto 0.000 0.000 - 0.000 x10(3)/[facility] Blood 02/19/2021 10:5 4 AM EDT 02/19/2021 11:02 AM EDT Narrative Resulting Agency Comment Spec In Lab Harmony Dobson CAISSON WORKER HEMATOLOGY ORDERAB LES [facility] [place] [address] * (ABNORMAL) Hemoglobin A1c (02/19/2021 10:54 AM EDT) Hemoglobin A1C 8.0(H) 4.3 - 5.6 % [facility] Comment: Reference Range: 4.3 - [...] Mellitus, Diabetes Care 2013; 36: Suppl. 1, S67-36 Est Avg Gluc 181 mg/dL [facility] Comment: eAG equivalents for HbA1c [...] into estimated average glucose values. ??Diabetes Care 2008:31(8):7698-8416. Blood 02/19/2021 10:5 4 AM EDT 02/19/2021 11:02 AM EDT Narrative Resulting Agency Comment Spec In Lab Harmony Dobson APRN CHEMISTRY ORDERABL ES Performing Organization Address [facility] Co de Phone Number [facility] [place] [address] * Prothrombin Time (02/19/2021 10:54 AM EDT) Pathologist [facility] PT 11.7 9.4 - 12.5 sec [facility] INR 1.0 [facility] Comment: An INR <2.0 [...] Narrative Resulting Agency Comment Spec In Lab Harmnoy Dobson APRN HEMATOLOGY ORDERAB LES Performing Organization Address [facility] Co de Phone Number [facility] [place] [address] * AFP tumor marker (02/19/2021 10:54 AM EDT) [facility] AFP 3.0 <=8.3 ng/mL [facility] Blood 02/19/2021 10:5 4 AM EDT 02/19/2021 11:02 AM EDT Narrative Resulting Agency Comment Spec In Lab Harmony Dobson APRN CHEMISTRY ORDERABL ES Performing Organization Address [facility] Co de Phone Number [facility] [place] [address] * (ABNORMAL) Comprehensive metabolic panel (non-fasting) (02/19/2021 10:54 AM EDT) [facility] Glucose Lvl 141 65 - 199 mg/dL [facility] Comment:Diabetes: >=200 mg/d L plus symptoms BUN 23(H) 8 - 18 mg/dL [facility] Creatinine 0.79 0.70 - 1.20 mg/dL [facility] Sodium 136 135 - 145 mmol/L [facility] Potassium 4.2 3.5 - 5.0 mmol/L [facility] Comment: Please note: ??Patients with WBC >100,000 may have falsely elevated Potassium levels. ??For accurate Potassium quantification in these patients send serum separator tube (gold top) for subsequent determinations. ??Contact the Clinical Chemistry Laboratory if there are any questions. Chloride 104 98 - 107 mmol/L [facility] CO2 24 22 - 31 mmol/L [facility] Anion Gap 8 5 - 15 mmol/L [facility] Calcium 10.0 8.5 - 10.5 mg/dL [facility] Total Protein 7.9 6.1 - 8.0 g/dL [facility] Albumin 4.3 3.2 - 5.2 g/dL [facility] AST 24 0 - 30 unit/L [facility] ALT 21 0 - 30 unit/L [facility] Alk Phos 81 35 - 105 unit/L [facility] Total Bilirubin 0.6 0.2 - 1.3 mg/dL [facility] Estimated GFR 77 >=60 mL/min/1. 73 m?? [facility] Comment: This patient? s estimated [...] Agency Comment Spec In Lab Harmony Dobson CAISSON WORKER CHEMISTRY ORDERABL ES [facility] [place] [address] documented in this encounter Visit Diagnoses Diagnosis Primary biliary cholangitis Hepatic cirrhosis, unspecified hepatic cirrhosis type, unspecified whether ascites present Autoimmune hepatitis Screening for colon cancer Special screening for malignant neoplasms, colon Primary biliary cholangitis documented in this encounter Care Teams Research And Development Director Relationship Specialty Start Date End Date Nicolasa Prince APRN [address] [place] [address] PCP - General Family Medicine 01/08/21 documented as of this encounter
--- OUTSIDE RECORDS SUMMARY | 2023-11-21 18:59 | XMS_ITS | Encounter Summary ---
Author Organization [facility] [place] [address] Care Team Providers Care Food Demonstrator Name Role Phone Nicolasa Prince YULIA Primary Care Provider +1- [phone] Reason for Visit * Auth/Cert (Routine) Specialty [...] GI ENDOSCOPY COLONOSCOPY, DIAGNOSTIC Elin Carlson MD [facility] [place] [address] [facility] Referral ID Status Reason Start Date Expiration Date Visits Re quested Visits Authorized [id number] 1 1 Encounter Details Date Type Department Care Team (Late st Contact Info) Description 08/07/2022 2:00 PM EDT - 08/07/2022 3:00 PM EDT Surgery [place] [address] Elin Carlson MD [facility] [place] [address] EGD, UPPER GI ENDOSCOPY (WRVU 2.09) Social [...] the day after the test, use an btlt-yzp-jdidltv spray or lozenges to numbyour throat. Warm [...] occurs, please contact your doctor. Please call [phone] before 8pm Mon-Fri with problems, questions, or concerns. If you call after 8pm or on weekends, call the Hospital at [phone] and ask for the Relationship Executive cotton header and the hot header operator will contact that person for you. [...] more? You can view health information on [employer], your personal patient account. Log in or sign up today. Content Version: 12.2 ?? [id number] [employer]. Care instructions adapted under license by [facility]. If you have questions about a medical condition or this instruction, always ask your healthcare professional. [employer] disclaims any warranty or liability for your [...] Diagnosis Code ??? Atherosclerotic heart disease of [place] coronary artery without angina pectoris I25.10 EXAM: [...] 2:57 PM EDT Colonoscopy, Flex, W/Control, Bleeding (98766) 08/07/2022 2:21 PM EDT Hepatic cirrhosis, unspecified hepatic cirrhosis type, unspecified whether ascites present Screening for colon cancer Colonoscpy, Flex, W/Dir Submuc Inject (07894) 08/07/2022 2:21 PM EDT Hepatic cirrhosis, unspecified hepatic cirrhosis type, unspecified whether ascites present Screening for colon cancer Colonoscopy, Remv Lesn, Snare (04157) 08/07/2022 2:21 PM EDT Hepatic cirrhosis, unspecified hepatic cirrhosis type, unspecified whether ascites present Screening for colon cancer Upper GI Endoscopy, Diagnostic (55295) 08/07/2022 2:21 PM EDT Hepatic cirrhosis, unspecified hepatic cirrhosis type, unspecified whether ascites present Screening for colon cancer UPPER GI ENDOSCOPY Routine 08/07/2022 2: 10 PM EDT COLONOSCOPY Routine 08/07/2022 2:10 PM EDT documented in this encounter Results * Specimen to Pathology (08/07/2022 3:25 PM EDT) AP Specimen 08/07/2022 3:25 PM EDT 08/07/2022 3:25 PM EDT Narrative [facility] - 08/07/2022 3:25 PM EDT Specimen requisition ordered. ??Separate Pathology report to follow Elin Carlson MD PATHOLOGY/CYTOLOGY O MEENU Performing Organization Address [facility] Co de Phone Number [facility] [place] [address] * Specimen to Pathology (08/07/2022 3:25 PM EDT) AP Specimen 08/07/2022 3:25 PM EDT 08/07/2022 3:25 PM EDT Narrative [facility] - 08/07/2022 3:25 PM EDT Specimen requisition ordered. ??Separate Pathology report to follow Elin Carlson MD PATHOLOGY/CYTOLOGY O RDMILLIE Performing Organization Address [facility] [place] [place] [address] * Surgical Pathology Report (08/07/2022 2:57 PM EDT) Surgical Pathology Report [id number] ? Location: 4T; EA12; A The signing [...] Arpit Verified: ??08/26/2022 16:10 ??Pathologist Performed at: ??-[facility] Dept. of Pathology, [place] [address] Manager Unix: Stefan Min MD, FCAP, ??CLIA Certificate: [id number] SPECIMEN(S) SUBMITTED A - transverse colon polyp, [...] toto ??in 2 cassettes labeled B1-B2. ??shb [facility] 08/07/2022 2:57 PM EDT Elin Carlson MD PATHOLOGY/CYTOLOGY O RDERACAMERON ELIN [facility] [place] [address] * UPPER GI ENDOSCOPY (08/07/2022 2:10 PM EDT) [facility] [place] UPPER GI ENDOSCOPY [facility] Endoscopy Procedure Date: 08/07/2022 2:10 PM ? Patient Name: Cookie Salgado ? Date of : 1950 ? Age: 71 ? Order #: [id number] ? Instrument Name: [id number]- [id number] ? Procedure: ? Upper GI endoscopy Indications: [...] PROVATION 08/07/2022 2:10 PM EDT Nicolasa Prince CHALK EXTRUDING MACHINE OPERATOR GENERAL SURGICAL O RDERABLES PROVATION * COLONOSCOPY (08/07/2022 2:10 PM EDT) COLONOSCOPY [facility] Endoscopy Procedure Date: 08/07/2022 2:10 PM ? Patient Name: Cookie Salgado ? Date of : 1950 ? Age: 71 ? Order #: [id number] ? Instrument Name: [id number]- [id number] ? Procedure: ? Colonoscopy Indications: ? Screening [...] ? was evaluated using the BBPS ? ([place] Bowel Preparation Scale) ? with scores of: [...] Procedure Code(s): ? --- Professional --- ? 49980, Colonoscopy, flexible; with ? endoscopic mucosal resection ? 90158, 59, Colonoscopy, flexible; ? with removal of tumor(s), polyp(s), ? or other lesion(s) by snare ? technique CPT copyright 2021 [employer]. All rights reserved. The codes documented in this report are preliminary and upon clipping marker review may be revised to meet current [...] RN) documented in this encounter Care Teams Food Demonstrator Relationship Specialty Start Date End Date Nicolasa Prince APRN [address] [address] PCP - General Family Medicine 01/08/21 documented as of this encounter
--- OUTSIDE RECORDS SUMMARY | 2023-11-21 18:59 | XMS_ITS | Encounter Summary ---
Author Organization [facility] Address [facility] [place] [address] Care Team Providers Care Echocardiograph Tech Name Role Phone Nicolasa Prince APRN Primary Care Provider +1- [phone] Encounter Details Date Type Department Care Team (Late st Contact Info) Description 11/24/2021 External Results [place] [address] Irene Lara MD [facility] [place] [address] Social History Tobacco Use Types Packs/Day Years [...] ALT 37 Hemoglobin A1C 7.9 Historical Provider POINT OF CARE PAMELA T ORDERABLES documented in this encounter Visit Diagnoses Not on filedocumented in this encounter Care Teams Echocardiograph Tech Relationship Specialty Start Date End Date Nicolasa Prince APRN [address] [place], [place] [address] PCP - General Family Medicine 01/08/21 documented as of this encounter
--- OUTSIDE RECORDS SUMMARY | 2023-11-21 18:59 | XMS_ITS | Encounter Summary ---
Author Organization [facility] [place] [address] Care Team Providers Care Muffle Worker Name Role Phone Nicolasa Prince APRN Primary Care Provider +1- [phone] Encounter Details Date Type Department Care Team (Late st Contact Info) Description 02/10/2022 11:30 AM EDT Office Visit [place] [address] Irene Lamar MD [facility] [place] [address] Autoimmune hepatitis; Primary biliary cholangitis; Hepatic cirrhosis, [...] PBC/AIH. Her original diagnosis was made in [place] and she was managed by a middle stitcher at [facility]. Her records were extensively reviewed in care [...] normal since approximately 2016. She moved to [place] in 2019.. Living with her two brothers. [...] for HCC screening, may time this with EGD/[place] Time spent with patient: 40 min Time spent reviewing records, documentin min Irene Lamar MD Section of Gastroenterology & Hepatology [address] [place] [address] Cc: Nicolasa Prince APRN SURGICAL PATHOLOGY REPORT ? Patient: PREMA SALGADO ?MR #: [id number] ?Submitted by: Elie Moreno MD FINAL DIAGNOSIS [...] the ductules cannot be definitively distinguished from [place] bile ducts. ??There is patchy periportal hepatocellular [...] had a prior liver biopsy reviewed at [facility] (see accession number [id number]), although the slides are not available for direct comparison at this time. ??However, based on the microscopic description, it appears that fibrosis may have progressed. documented in this encounter Procedure Notes * Irene Lamar MD - 02/10/2022 11:30 AM EDTAssociated Order(s): FIBROSCAN Procedure(s): FIBROSCAN Pre-Procedure Diagnose(s): Autoimmune hepatitis; Primary biliary cholangitis [facility] Liver Fibrosis Assessment Report Indication: AIH/PBC, assess for portal htn Performed by: HOWARD Rockwell Procedure: Vibration Controlled Transient Elastography (VCTE) or Fibroscan [place] Protocol: Patient's identity, procedure and site were [...] Procedure Name Priority Date/Time Associated Diagnosis Comments [id number] Routine 02/10/2022 11:30 AM EDT Autoimmune hepatitis [...] PM Electronically signed by: Kashmir Lindsay MD, [facility] ([phone]), at 08/17/2022 2:04 PM Thank you for letting us participate in the care of this patient. If you are a health care provider and have any questions regarding this report, please contact the number above. For patients who have questions, please contact the health manager care management that requested your imaging first. ?Kashmir Lindsay, Staff Physician Electronically Signed Final Report ?? 08/17/2022 02:12 pm Narrative 08/17/2022 2:12 PM EDT Abdominal ? (Signed Final 08/17/2022 02:12 pm) PATIENT INFO: ID #: ? [id number] ?: ??[birth year] (71 yrs)(F) Name: ? PREMA SALGADO ?Visit Date: 08/17/2022 10:53 am PERFORMED BY: Attending: ?Neftali LUTHER, Kashmir Resident: ? Milagros LUTHER, James Curtis Performed By: ? Angelina Crystal RDMS Referred By: ?IRENE LAMAR Location: ? [place] SERVICE(S) PROVIDED: [facility] - Hepatology Protocol - Abdominal ?63550 Limited Survey Single Organ or Quadrant - [id number] INDICATIONS: cirrhosis, screen for hcc; assess for [...] 08/17/2022 02:12 pm) PATIENT INFO: ID #: [id number] : [birth year] (71 yrs)(F) Name: PREMA SALGADO Visit Date: 08/17/2022 10:53 am PERFORMED BY: Attending: Kashmir Lindsay MD Resident: James Linares MD Performed By: Angelina Crystal RDMS Referred By: IRENE LAMAR Location: [place] SERVICE(S) PROVIDED: [facility] - Hepatology Protocol - Abdominal 25016 Limited Survey Single Organ or Quadrant - [id number] INDICATIONS: cirrhosis, screen for hcc; assess for [...] have questions, please contact the health manager care management that requested your imaging first. Kashmir Lindsay, Staff Physician Electronically Signed Final Report 08/17/2022 02:12 pm Irene Lamar MD IMG US GEN ORDERABLE S * [id number] (02/10/2022 11:30 AM EDT) Narrative Irene Lamar MD - 02/10/2022 11:30 AM EDT Irene Lamar MD ? 02/11/2022 ??8:29 AM [facility] Liver Fibrosis Assessment Report Indication: ??AIH/PBC, assess for portal htn Performed by: ??HOWARD Rockwell Procedure: Vibration Controlled Transient Elastography (VCTE) or Fibroscan [place] Protocol: Patient's identity, procedure and site were [...] present documented in this encounter Care Teams Muffle Worker Relationship Specialty Start Date End Date Nicolasa Prince APRN [address] [place] [address] PCP - General Family Medicine 01/08/21 documented as of this encounter
--- OUTSIDE RECORDS SUMMARY | 2023-11-21 18:59 | XMS_ITS | Encounter Summary ---
Author Organization [facility] [place] [address] Care Team Providers Care [employer] Clergy Name Role Phone Nicolasa Prince APRN Primary Care Provider +1- [phone] Encounter Details Date Type Department Care Team (Late st Contact Info) Description 01/28/2021 Orders Only Cardiology at [address] [address] Kylah Arellano APRN [facility] [place] [address] Atherosclerosis of [place] coronary artery without angina pectoris, unspecified whether [place] or transplanted heart Social History Tobacco Use [...] this encounter Visit Diagnoses Diagnosis Atherosclerosis of [place] coronary artery without angina pectoris, unspecified whether [place] or transplanted heart documented in this encounter Care Teams [employer] Clergy Relationship Specialty Start Date End Date Nicolasa Prince APRN [address] [place] [address] PCP - General Family Medicine 01/08/21 documented as of this encounter
--- OUTSIDE RECORDS SUMMARY | 2023-11-21 18:59 | XMS_ITS | Encounter Summary ---
[place] [address] Care Team Providers Care Textile Clothing And Footwear Mechanic Name Role Phone Nicolasa Prince YULIA Primary Care Provider +1- [phone] Encounter Details Date Type Department Care Team (Latest Contact Info) Description 07/22/2021 11:35 AM EDT Laboratory Appointment Lab [address] [place] [phone] Primary biliary cholangitis Social History Tobacco Use [...] Hemoglobin A1C 9.4(H) 4.3 - 5.6 % [facility] Comment: Reference Range: 4.3 - [...] Mellitus, Diabetes Care 2013; 36: Suppl. 1, S67-69 Est Avg Gluc 222 mg/dL [facility] Comment: eAG [...] into estimated average glucose values. ??Diabetes Care 2008:31(8):5611-5723. Blood Venous Draw / Unknown 07/22/2021 11:40 AM EDT 07/22/2021 2:17 PM EDT Narrative Resulting Agency Comment Spec In Lab Irene Lara MD CHEMISTRY ORDERABLES [facility] [place] [address] * Differential, Automated (07/22/2021 11:40 AM EDT) Neutrophils % 67.4 % [facility] Neutr Abs (ANC) 3.18 1.70 - 6.10 x10(3)/[facility] Lymphocytes % 22.0 % [facility] Lymphocytes Abs 1.0 0.9 - 3.2 x10(3)/[facility] Monocytes % 8.7 % [facility] Monocyte Abs 0.4 0.3 - 0.9 x10(3)/[facility] Eosinophils % 1.3 % [facility] Eosinophils Abs 0.1 0.0 - 0.4 x10(3)/[facility] Basophils % 0.4 % [facility] Basophils Abs 0.0 0.0 - 0.1 x10(3)/[facility] Immature Gran % 0.20 % [facility] Comment: Immature granulocytes(IG's)percentage and absolute count will include metamyelocytes, myelocytes, and promyelocytes. Blood smears from CBCs yielding IG's will be scanned manually for concordance. If this scan disagrees with the automated IG or if promyelocytes are noted, a manual differential will be performed. Sydnee Gran Abs 0.01 0.00 - 0.04 x10(3)/[facility] Blood 07/22/2021 11:4 0 AM EDT 07/22/2021 11:55 AM EDT Narrative Resulting Agency Comment Spec In Lab Irene Lara MD HEMATOLOGY ORDERABLE S [facility] [place] [address] * (ABNORMAL) Hemogram (07/22/2021 11:40 AM EDT) [facility] WBC 4.7 4.0 - 9.5 x10(3)/[facility] RBC 5.44(H) 4.00 - 5.21 x10(6)/[facility] Hemoglobin 16.8(H) 11.7 - 15.5 g/dL [facility] Hematocrit 49.7(H) 35.7 - 45.8 % [facility] MCV 91.4 82.6 - 94.4 [facility] MCH 30.9 27.1 - 32.0 pg [facility] MCHC 33.8 31.7 - 35.0 g/dL [facility] Platelets 141(L) 145 - 357 x10(3)/[facility] RDWSD 45.5 37.0 - 46.0 [facility] RDWCV 13.5 11.5 - 14.1 % [facility] MPV 10.8 7.6 - 12.9 [facility] nRBC % Auto 0.0 % [facility] nRBC Abs Auto 0.000 0.000 - 0.000 x10(3)/[facility] Blood 07/22/2021 11:4 0 AM EDT 07/22/2021 11:55 AM EDT Narrative Resulting Agency Comment Spec In Lab Irene Lara MD HEMATOLOGY ORDERABLE S [facility] [place] [address] * (ABNORMAL) Comprehensive metabolic panel (non-fasting) (07/22/2021 11:40 AM EDT) [facility] Glucose Lvl 156 65 - 199 mg/dL [facility] Comment:Diabetes: >=200 mg/d L plus symptoms BUN 23(H) 8 - 18 mg/dL [facility] Creatinine 0.88 0.70 - 1.20 mg/dL [facility] Sodium 135 135 - 145 mmol/L [facility] Potassium 4.4 3.5 - 5.0 mmol/L [facility] Comment: Please note: ??Patients with WBC >100,000 may have falsely elevated Potassium levels. ??For accurate Potassium quantification in these patients send serum separator tube (gold top) for subsequent determinations. ??Contact the Clinical Chemistry Laboratory if there are any questions. Chloride 104 98 - 107 mmol/L [facility] CO2 18(L) 22 - 31 mmol/L [facility] Anion Gap 13 5 - 15 mmol/L [facility] Calcium 10.0 8.5 - 10.5 mg/dL [facility] Total Protein 7.8 6.1 - 8.0 g/dL [facility] Albumin 4.5 3.2 - 5.2 g/dL [facility] AST 29 0 - 30 unit/L [facility] ALT 26 0 - 30 unit/L [facility] Alk Phos 89 35 - 105 unit/L [facility] Total Bilirubin 0.7 0.2 - 1.3 mg/dL [facility] Estimated GFR 68 >=60 mL/min/1. 73 m?? [facility] Comment: This patient? s estimated [...] Lara MD CHEMISTRY ORDERABLES Performing Organization Address [facility] Co de Phone Number [facility] [address] * AFP tumor marker (07/22/2021 11:40 AM EDT) AFP 3.4 <=8.3 ng/mL [facility] Blood 07/22/2021 11:4 0 AM EDT 07/22/2021 11:55 AM EDT Narrative Resulting Agency Comment Spec In Lab Irene Lara MD CHEMISTRY ORDERABLES Performing Organization Address [facility] Phone Number [facility] [place] [address] * Prothrombin Time (07/22/2021 11:40 AM EDT) PT 11.6 9.4 - 12.5 sec [facility] INR 1.0 [facility] [...] MD HEMATOLOGY ORDERABLE S Performing Organization Address [facility] Co de Phone Number [facility] [place] [address] documented in this encounter Visit Diagnoses Diagnosis Primary biliary cholangitis documented in this encounter Care Teams Textile Clothing And Footwear Mechanic Relationship Specialty Start Date End Date Nicolasa Prince, YULIA [address] [place] [address] PCP - General Family Medicine 01/08/21 documented as of this encounter
--- OUTSIDE RECORDS SUMMARY | 2023-11-21 18:59 | XMS_ITS | Encounter Summary ---
Author Organization [facility] Address [facility] [place] [address] Care Team Providers Care Acoustic Engineer Name Role Phone Nicolasa Prince APRN Primary Care Provider +1- [phone] Encounter Details Date Type Department Care Team (Late st Contact Info) Description 10/14/2021 External Results Gastroenterology at [facility] [place] [address] Irene Lara MD [facility] [place] [address] Social History Tobacco Use Types Packs/Day Years [...] on filedocumented in this encounter Care Teams Acoustic Engineer Relationship Specialty Start Date End Date Nicolasa Prince APRN [address] [place], [place] [address] PCP - General Family Medicine 01/08/21 documented as of this encounter
--- OUTSIDE RECORDS SUMMARY | 2023-11-21 18:59 | XMS_ITS | Encounter Summary ---
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
--- OUTSIDE RECORDS SUMMARY | 2023-11-21 18:59 | XMS_ITS | Encounter Summary ---
Author Organization [facility] [place] [address] Care Team Providers Care Repairer Sash And Door Name Role Phone Nicolasa Prince YULIA Primary Care Provider +1- [phone] Encounter Details Date Type Department Care Team (Latest Contact Info) Description 02/10/2022 10:15 AM EDT Laboratory Appointment Lab [address] [place] [phone] Primary biliary cholangitis; Type 2 diabetes mellitus with other specified complication, unspecified whether dedicated intermodal truck driver insulin use Social History Tobacco Use Types [...] mellitus with other specified complication, unspecified whether dedicated intermodal truck driver insulin use [facility] Routine 02/10/2022 11:06 AM EDT Primary biliary cholangitis documented in this encounter Results * (ABNORMAL) Differential, Automated (02/10/2022 11:06 AM EDT) Neutrophils % 70.8 % [facility] Neutr Abs (ANC) 2.95 1.70 - 6.10 x10(3)/[facility] Lymphocytes % 18.2 % [facility] Lymphocytes Abs 0.8(L) 0.9 - 3.2 x10(3)/[facility] Monocytes % 9.1 % [facility] Monocyte Abs 0.4 0.3 - 0.9 x10(3)/[facility] Eosinophils % 1.2 % [facility] Eosinophils Abs 0.0 0.0 - 0.4 x10(3)/[facility] Basophils % 0.5 % [facility] Basophils Abs 0.0 0.0 - 0.1 x10(3)/[facility] Immature Gran % 0.20 % [facility] Comment: Immature granulocytes(IG's)percentage and absolute count will include metamyelocytes, myelocytes, and promyelocytes. Blood smears from CBCs yielding IG's will be scanned manually for concordance. If this scan disagrees with the automated IG or if promyelocytes are noted, a manual differential will be performed. Sydnee Gran Abs 0.01 0.00 - 0.04 x10(3)/[facility] Blood Venous Draw / Unknown 02/10/2022 11:06 AM EDT 02/10/2022 12:06 PM EDT Narrative Resulting Agency Comment Spec In Lab Irene Lara MD HEMATOLOGY ORDERABLE S [facility] [place] [address] * (ABNORMAL) Hemogram (02/10/2022 11:06 AM EDT) Pathologist [facility] WBC 4.2 4.0 - 9.5 x10(3)/[facility] LABORATORY RBC 5.02 4.00 - 5.21 x10(6)/[facility] Hemoglobin 15.8(H) 11.7 - 15.5 g/dL [facility] Hematocrit 45.7 35.7 - 45.8 % [facility] MCV 91.0 82.6 - 94.4 [facility] MCH 31.5 27.1 - 32.[address] [facility] MCHC 34.6 31.7 - 35.0 g/dL [facility] Platelets 118(L) 145 - 357 x10(3)/[facility]ORATORY RDWSD 43.9 37.0 - 46.0 [facility] RDWCV 13.1 11.5 - 14.1 % [facility] MPV 10.4 7.6 - 12.9 [facility] nRBC % Auto 0.0 % [facility] nRBC Abs Auto 0.000 0.000 - 0.000 x10(3)/[facility] Blood Venous Draw / Unknown 02/10/2022 11:06 AM EDT 02/10/2022 12:06 PM EDT Narrative Resulting Agency Comment Spec In Lab Irene Lara MD HEMATOLOGY ORDERABLE S [facility] [place] [address] * (ABNORMAL) Hemoglobin A1c (02/10/2022 11:06 AM EDT) Hemoglobin A1C 7.0(H) 4.3 - 5.6 % [facility] Comment: Reference Range: 4.3 - [...] 1, S67-74 Est Avg Gluc 155 mg/dL [facility] Comment: eAG equivalents for HbA1c [...] into estimated average glucose values. ??Diabetes Care 2008:31(8):1992-8763. Blood 02/10/2022 11:0 6 AM EDT 02/10/2022 11:10 AM EDT Narrative Resulting Agency Comment Spec In Lab Irene Lara MD CHEMISTRY ORDERABLES [facility] [place] [address] * Hepatic Function Panel (02/10/2022 11:06 AM EDT) Total Protein 7.4 6.1 - 8.0 g/dL [facility] Albumin 4.2 3.2 - 5.2 g/dL [facility] AST 21 0 - 30 unit/L [facility] ALT 17 0 - 30 unit/L [facility] Alk Phos 71 35 - 105 unit/L [facility] Total Bilirubin 0.6 0.2 - 1.3 mg/dL [facility] Bili, Direct 0.2 0.0 - 0.3 mg/dL [facility] Blood 02/10/2022 11:0 6 AM EDT 02/10/2022 11:10 AM EDT Narrative Resulting Agency Comment Spec In Lab Irene Lara MD CHEMISTRY ORDERABLES [facility] [place] [address] documented in this encounter Visit Diagnoses Diagnosis Primary biliary cholangitis Type 2 diabetes mellitus with other specified complication, unspecified whether dedicated intermodal truck driver insulin use documented in this encounter Care Teams Repairer Sash And Door Relationship Specialty Start Date End Date Nicolasa Prince APRN [address] [place] [address] PCP - General Family Medicine 01/08/21 documented as of this encounter
--- OUTSIDE RECORDS SUMMARY | 2023-11-21 18:59 | XMS_ITS | Encounter Summary ---
Author Organization [facility] Address [facility] [place] [address] Care Team Providers Care Packaging Designer Name Role Phone Nicolasa Prince APRN Primary Care Provider +1- [phone] Encounter Details Date Type Department Care Team (Late st Contact Info) Description 02/15/2022 Orders Only [place] [address] Irene Lara MD [facility] [place] [address] Hepatic cirrhosis, unspecified hepatic cirrhosis type, unspecified [...] colon documented in this encounter Care Teams Packaging Designer Relationship Specialty Start Date End Date Nicolasa Prince APRN [address] [place] [address] PCP - General Family Medicine 01/08/21 documented as of this encounter
--- OUTSIDE RECORDS SUMMARY | 2023-11-21 18:59 | XMS_ITS | Encounter Summary ---
Author Organization [facility] [place] [address] Care Team Providers Care Telephone Mechanic Name Role Phone Nicolasa Prince APRN Primary Care Provider +1- [phone] Encounter Details Date Type Department Care Team (Late st Contact Info) Description 05/23/2022 Telephone [place] [phone] Alisia Driver Social History Tobacco Use Types [...] it can be handled by: Any Endoscopy Electronic Specialist documented in this encounter Plan of Treatment Not on file documented as of this encounter Visit Diagnoses Not on filedocumented in this encounter Care Teams Telephone Mechanic Relationship Specialty Start Date End Date Nicolasa Prince APRN [address] [place] [address] PCP - General Family Medicine 01/08/21 documented as of this encounter
--- OUTSIDE RECORDS SUMMARY | 2023-11-21 18:59 | XMS_ITS | Encounter Summary ---
[place] [address] Care Team Providers Care Magazine Feeder Name Role Phone Suresh Nicolasa Giles APRN Primary Care Provider +1- [phone] Reason for Referral * Diagnostic Test (Routine) - Closed Specialty Diagnoses / Procedures Referred By Contac t Referred To Contact Radiology Diagnoses Primary biliary cholangitis Procedures MRI Abdomen wwo Contrast (Generic) Harmony Andrade APRN [facility] [place] [address] [place] [address] Referral ID Status Reason Start Date Expiration Date V isits Requested Visits Authorized [id number] Closed Specialty Service Requested 02/19/2021 08/20/2022 1 1 Reason for Visit * Diagnostic Test (Routine) - Closed Specialty Diagnoses / Procedures Referred By Contac t Referred To Contact Radiology Diagnoses Primary biliary cholangitis Procedures MRI Abdomen wwo Contrast (Generic) Harmony Andrade [facility] [address] [place] [address] Referral ID Status Reason Start Date Expiration Date V isits Requested Visits Authorized [id number] Closed Specialty Service Requested 02/19/2021 08/20/2022 1 1 Encounter Details Date Type Department Care Team (Latest Contact Info) Description 07/22/2021 9:43 AM EDT - 07/22/2021 11:59 PM EDT Hospital [place] [address] Harmony Andrade APRN [facility] [place] [address] Primary biliary cholangitis Discharge Disposition: Home Social [...] who have questions please contact the health managed care manager that requested your imaging first. ? Electronically signed by: Ramon Verduzco MD, [facility] ([phone]), at 07/22/2021 11:29 AM Narrative 07/22/2021 11:29 [...] patients who have questions please contactthe health managed care manager that requested your imaging first. Electronically signed by: Ramon Verduzco MD, [facility]([phone]), at 07/22/2021 11:29 AM Harmony Andrade APRN [facility] MRI ORDERABLES documented in this encounter Visit [...] mLs documented in this encounter Care Teams Magazine Feeder Relationship Specialty Start Date End Date Nicolasa Prince APRN [address] [place] [id number] PCP - General Family Medicine 01/08/21 documented as of this encounter
[2023-11-21 19:02] VITALS: BP 167/77; PULSE 90; RESP 18; TEMP 36.4; O2SAT 95
[2023-11-21 19:23] VITALS: RESP 16
--- NOTE | 2023-11-21 20:36 | W.ED.GENAD ---
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 Primary Care Provider: Nicolasa Prince ED Provider: Ranjan Sam Home Meds and New Rx's Prescriptions: New methocarbamol 750 mg tablet 750 mg PO QID 7 Days Qty: 28 0RF Continued eye promis zeaxantin/lutein 1 drp PO 1XD cholecalciferol (vitamin D3) 25 mcg (1,000 unit) capsule 2,000 unit PO DAILY fenofibrate nanocrystallized 145 mg tablet 145 mg PO DAILY ursodiol 500 mg tablet 500 mg PO BID aspirin [Aspir-Aretha] 325 mg tablet,delayed release (DR/EC) 325 mg PO DAILY losartan 50 mg tablet 100 mg PO DAILY Discharge Instructions Instructions: Diclofenac (Topical), Radial Nerve Entrapment, Cyclobenzaprine, Methocarbamol Additional Instructions: You were seen in the emergency department for your neuropathy of your left arm in the radial nerve distribution, you also have referred pain with palpation of the trapezius muscle trigger point. I suspect you have an element of a bulged disc in your neck that you need an outpatient MRI for please talk to your primary care provider for this. Please take regular dose of Tylenol, apply heat and ice to the areas of pain, and perform gentle massage. I am sending home with to go pack of skeletal muscle relaxer called cyclobenzaprine, as well as a topical anti-inflammatory, topical diclofenac to help with pain. I have also sent a prescription for nonsedating muscle relaxer to use for the next couple weeks if you do not get short-term relief with need to go back to cyclobenzaprine. Please do not operate heavy machinery or drive on cyclobenzaprine, please use extra caution as it may make you feel little loopy and increase your risk of falling around the house. We did perform a check of D-dimer for suspicion of clot pathology, which was negative, I have placed an order for outpatient U/S of your L upper extremity for definitive ruleout due to your liver disease and recent peripheral IV. Please call the Radiology Dept to schedule this tomorrow. You may need to check into the ED for results of this test. You may follow-up with orthopedics outpatient for failure to improve. Please return to the emergency department for inability to move the left arm, complete muscle weakness to the left arm, signs of neurovascular compromise. Referrals: [facility] [Provider Group] PhilperezNicolasa [Primary Care Provider] - Discharge Data Discharge Date/Time-TO BE ENTERED AT DEPARTURE: 11/21/23 22:18 HPI General Date/Time Provider Initiated Documentation: 11/21/23 19:11. HPI Narrative: 72 year-old female presents to ED today by POV/ambulating with a chief complaint of L arm pain, from shoulder to tips of fingers, and some antecubital nodular swellings s/p having a peripheral IV from blood draw- with history of liver dysfunction with onset over the past week. Quality described as severe shooting pains, no radiation to bruising, gross unilateral arm swelling, midline neck pain, complete numbness of arm, trauma. Severity is described as severe. Palliating factors include nothing specific. Provoking factors include possibly due to peripheral IV. Patient not anticoagulated. Related Data Home Medications ?Medication ?Instructions ?Recorded ?Confirmed aspirin 325 mg tablet,delayed 325 mg PO DAILY 04/28/21 11/21/23 release (Aspir-Aretha) cholecalciferol (vitamin D3) 25 2,000 unit PO DAILY 04/28/21 11/21/23 mcg (1,000 unit) capsule fenofibrate nanocrystallized 145 145 mg PO DAILY 04/28/21 11/21/23 mg tablet ursodiol 500 mg tablet 500 mg PO BID 04/28/21 11/21/23 eye promis zeaxantin/lutein 1 drp PO 1XD 06/12/22 11/21/23 losartan 50 mg tablet 100 mg PO DAILY 06/12/22 11/21/23 methocarbamol 750 mg tablet 750 mg PO QID 7 days #28 tabs 11/21/23 Previous Rx's ?Medication ?Instructions ?Recorded methocarbamol 750 mg tablet 750 mg PO QID 7 days #28 tabs 11/21/23 Allergies Allergy/AdvReac Type Severity Reaction Status Date / Time Egg Derived Allergy Severe Other (See Verified 11/21/23 19:09 Comment) mold Allergy Severe Other (See Verified 11/21/23 19:09 Comment) amoxicillin Allergy Intermediate Other (See Verified 11/21/23 19:09 Comment) ciprofloxacin Allergy Intermediate Other (See Verified 11/21/23 19:09 Comment) General Stated Complaint: GenMedical ALONZO: 4 Review of Systems All systems reviewed & are unremarkable except as noted in HPI and below Exam Narrative Exam Narrative: GENERAL APPEARANCE: Well-nourished, non-toxic, awake and alert, atraumatic, no acute distress. SKIN: Warm, pink, dry, intact, without rashes/lesions/ulcerations. HEAD: Normocephalic, atraumatic, normal hair distribution for gender/age. EYES: Pupils PERRLA, EOMs intact without nystagmus, normal conjunctiva, no exudates on lids/lashes. ENT: Nares patent, no circumoral cyanosis, no facial swelling NECK: Supple, trachea midline, painless cervical ROM. LUNGS/CHEST: Non-labored respirations, normal A/P diameter, symmetrical expansion, no chest wall deformity HEART (CV/PV): Regular rate, no peripheral edema, no JVD. ABDOMEN: Soft, non-distended, no guarding. MSK: Normal ROM, no swelling/deformity to bilateral UEs or LEs, moving all extremities without weakness, no cyanosis, spine midline without tenderness, normal curvature. pain in radial nerve distribution, tenderness at the left radial groove, there minor focal nodular swelling is in the antecubital space from prior blood draw, there is no pain with deep palpation of the bicep, no unilateral arm swelling, no skin changes distal, left radial pulse 2+, wind projects supervisor strength 5/5, sensation intact. NEURO: Mental Status AAOx4 - alert to person, place, time, events No facial droop, no forehead involvement. Motor: No focal weakness - strength 5/5 in bilateral UEs and LEs, proximal and distal, symmetric. Sensory: sensation intact to light touch globally. Gait normal: patient ambulated without ataxia into ED room. PSYCH: euthymic, cooperative, pleasant, appropriate speech Course Vital Signs Vital signs: Vital Signs Temperature 36.4 C 11/21/23 19:02 Pulse 90 11/21/23 19:02 Respiratory Rate 18 11/21/23 19:02 Blood Pressure 167/77 H 11/21/23 19:02 Pulse Oximetry 95 11/21/23 19:02 Temperature 36.4 C 11/21/23 19:02 Temperature Source Temporal Artery Scan 11/21/23 19:02 Pulse 90 11/21/23 19:02 Respiratory Rate 16 11/21/23 19:23 Respiratory Effort Normal, Non-Labored 11/21/23 19:23 Blood Pressure 167/77 H 11/21/23 19:02 Blood Pressure Position Sitting 11/21/23 19:02 Pulse Oximetry 95 11/21/23 19:02 Oxygen Delivery Method Room Air 11/21/23 19:02 Oxygen Flow Rate 0 11/21/23 19:02 Pain Level 10 11/21/23 19:02 Medical Decision Making This dictation utilizes [id number]-dl-wnme dictation software and may contain unedited grammatical errors. 72 year-old female presents to ED today by POV/ambulating with a chief complaint of L arm pain, from shoulder to tips of fingers, and some antecubital nodular swellings s/p having a peripheral IV from blood draw- with history of liver dysfunction with onset over the past week. Quality described as severe shooting pains, no radiation to bruising, gross unilateral arm swelling, midline neck pain, complete numbness of arm, trauma. Severity is described as severe. Palliating factors include nothing specific. Provoking factors include possibly due to peripheral IV. Patients' medical history: Hypertension, primary biliary cirrhosis, esophageal varices without bleeding, hyperlipidemia, T2DM. Family and social history: noncontributory. Pertinent exam findings / vital signs include patient has pain in radial nerve distribution, tenderness at the left radial groove, there minor focal nodular swelling is in the antecubital space from prior blood draw, there is no pain with deep palpation of the bicep, no unilateral arm swelling, no skin changes distal, left radial pulse 2+, wind projects supervisor strength 5/5, sensation intact. Differential / pathologies of concern include radiculopathy- cervical, neuropathy- radial, SVT/DVT less likely, sprain/strain. Diagnostic studies of: -CBC, CMP, D-dimer. -labs benign, d-dimer neg Interventions of: -cyclobenzaprine to go, methocarbamol Rx- recommend outpatient U/S, seek PCP order for MRI cervical, possible ortho referral. topical diclofenac. ED Course/Assessment/Plan: 72-year-old female has pain consistent with a radial neuropathy with pain at the radial groove causing pain down the rest of the arm, has tenderness at the left trapezius muscle, D-dimer is negative for any clot suspicion has only minor focal nodular swelling this could be a normal finding after peripheral IV but she does have risk factors for clotting including primary biliary cirrhosis. I think is reasonable at this time to treat with muscle relaxer for spasm related to radial neuropathy and for her to seek an outpatient ultrasound of the left upper extremity which was ordered from the ED, if this does not improve her syndrome I recommend that she seek an MRI referral from her PCP and possible Ortho referral, strict return criteria for signs of neurovascular compromise, increasing unilateral arm swelling, extreme pain increase. Findings not consistent with SVT or DVT, neurovascular compromise. Disposition of neuropathy of left radial nerve. Patient verbalized understanding of the plan and return to ED criteria and engaged in shared decision making. Medical Records Medical records reviewed: Yes I reviewed the patient's medical records. Lab Data Lab results reviewed: Yes I reviewed the patient's lab results. Labs: Laboratory Tests Range/Units 11/21/23 21:00 WBC (4.4-10.8) 10^3/uL 5.05 RBC (3.93-5.22) 10^6/uL 5.19 Hgb (11.2-15.7) g/dL 16.2 H Hct (36.0-46.0) % 47.3 H MCV (80-95) fL 91 MCH (27.0-33.0) pg 31.2 MCHC (32.0-36.0) % 34.2 RDW (11.7-14.6) % 13.7 Plt Count (130-400) 10^3/uL 145 MPV (8.0-11.0) fL 10.5 Immature Gran % % 0.2 Neutrophils % % 65.7 Lymphocytes % % 22.8 Monocytes % % 8.9 Eosinophils % % 1.8 Basophils % % 0.6 Nucleated RBC % (0.0-0.3) % 0.0 Absolute Neutrophils (1.2-6.7) 10^3/uL 3.32 Absolute Lymphocytes (1.2-3.4) 10^3/uL 1.15 L Absolute Monocytes (0.1-0.8) 10^3/uL 0.45 Absolute Eosinophils (0.0-0.7) 10^3/uL 0.09 Absolute Basophils (0.0-0.2) 10^3/uL 0.03 D-Dimer (<500) ng/mlFEU 404 Sodium (136-145) mmol/L 141 Potassium (3.5-5.1) mmol/L 4.0 Chloride (98-107) mmol/L 105 Carbon Dioxide (21.0-32.0) mmol/L 21.7 Anion Gap (3-11) mmol/L 14.3 H BUN (7-18) mg/dL 31 H Creatinine (0.55-1.02) mg/dL 1.0 Est GFR (CKD-EPI 2020) (mL/min/1.73m2) 60.61 Glucose (74-106) mg/dL 119 H Calcium (8.5-10.1) mg/dL 9.6 Total Bilirubin (0.2-1.0) mg/dL 1.29 H AST (15-37) U/L 32 ALT (14-59) U/L 39 Alkaline Phosphatase (46-116) U/L 61 Total Protein (6.4-8.2) g/dL 8.0 Albumin (3.4-5.0) g/dL 3.8 Quality:[facility] Health Related Social Needs: No Data to Display PFSH All Active Problems (Updated 11/21/23 @ 21:46 by TOM Martin) Neuropathy of left radial nerve (Acute) Hypertension (Chronic) Primary biliary cirrhosis (Acute) [place] [facility] [place] [facility] Esophageal varices without bleeding (Acute) Palpitations (Acute) Overweight (Acute) Atherosclerosis of coronary artery (Acute) PTCA and Stent Anxiety disorder, unspecified (Acute) Vitamin D deficiency, unspecified (Acute) Accelerated essential hypertension (Acute) Hyperlipidemia, unspecified (Acute) Type 2 diabetes mellitus without complications (Acute) LAST A1C=9.0 ON 04/24/21 Social History Smoking/Tobacco Use Status: Former Tobacco Use Quit Date: 05/03/04 Smoking risk assessment performed?: Yes Alcohol Intake: never Drug use: Never Substance use type: does not use
[2023-11-21] MEDS: Cyclobenzaprine 10 MG TAB PO (20:49)
[2023-11-21] MEDS: Acetaminophen 500 MG TAB PO (20:49)
[2023-11-21] MEDS: oxyCODONE 5 MG TAB PO (20:50)
[2023-11-21 21:12] LABS: Abs Immature Grans 0.01 10^3/uL (0.0-0.06); Absolute Basophil Count 0.03 10^3/uL (0.0-0.2); Absolute Eosinophil Count 0.09 10^3/uL (0.0-0.7); Absolute Lymphocyte Count 1.15 10^3/uL (1.2-3.4); Absolute Monocyte Count 0.45 10^3/uL (0.1-0.8); Absolute Neutrophil Count 3.32 10^3/uL (1.2-6.7); Basophils % 0.6 %; Eosinophils % 1.8 %; HCT 47.3 % (36.0-46.0); HGB 16.2 g/dL (11.2-15.7); Immature Grans % 0.2 %; Lymphocytes % 22.8 %; MCH 31.2 pg (27.0-33.0); MCHC 34.2 % (32.0-36.0); MCV 91 fL (80-95); MPV 10.5 fL (8.0-11.0); Monocytes % 8.9 %; Neutrophils % 65.7 %; Platelet Count 145 10^3/uL (130-400); RBC 5.19 10^6/uL (3.93-5.22); RDW 13.7 % (11.7-14.6); RDW-SD 46.5 fL; WBC 5.05 10^3/uL (4.4-10.8)
[2023-11-21 21:21] LABS: ALT 39 U/L (14-59); AST 32 U/L (15-37); Albumin 3.8 g/dL (3.4-5.0); Alkaline Phosphatase 61 U/L (46-116); Anion Gap 14.3 mmol/L (3-11); BUN 31 mg/dL (7-18); Bilirubin, Total 1.29 mg/dL (0.2-1.0); CO2 21.7 mmol/L (21.0-32.0); Calcium 9.6 mg/dL (8.5-10.1); Chloride 105 mmol/L (98-107); Estimated GFR 60.61 (mL/min/1.73m2); Glucose 119 mg/dL (74-106); Sodium 141 mmol/L (136-145)
[2023-11-21 21:34] LABS: D-Dimer 404 ng/mlFEU (<500)
[2023-11-21 22:08] VITALS: BP 132/77; PULSE 82; TEMP 36.1; O2SAT 96
[2023-11-21] MEDS: Diclofenac 1% Gel 100 GM TUBE TP (22:17)
[2023-11-21 22:18] VITALS: BP 132/77; PULSE 82; RESP 16; TEMP 36.1; O2SAT 96
--- NOTE | 2023-11-23 15:58 | NUR.NOTE ---
Nursing Note: Received call from pt who states she was unsure about her muscle relaxers and was unable to schedule an appt for her ultrasound as they had not received the order. Per TOM Mcintosh pt is to cone picker her muscle relaxers at her pharmacy that was previously prescribed, and re-did the order for her ultrasound which was faxed to DI by the laboratory secretary. Pt updated and was transferred to the [facility] laboratory secretary to schedule her appt.
== END 2023-11-21 22:18 | disposition home or self-care (01) ==
PROVIDERS: Emergency Provider Physician Assistant; PCP Nurse Practitioner Family
DX: G56.32 Lesion of radial nerve, left upper limb (principal); I10 Essential (primary) hypertension; E78.5 Hyperlipidemia, unspecified; E11.9 Type 2 diabetes mellitus without complications; Z95.5 Presence of coronary angioplasty implant and graft; Z87.891 Personal history of nicotine dependence; Z79.82 Long term (current) use of aspirin
CPT/HCPCS: 80053; 99283; 85025; 85379

== ENCOUNTER → 2023-11-24 01:05 | Outpatient (CLI) | payer MEDICARE, SELFPAY ==
--- NOTE | 2023-11-24 | DI.US_ITS ---
Exam(s) US UPPER EXTREMITY VENOUS LT EXAM: US UPPER EXTREMITY VENOUS LT CLINICAL HISTORY: SWELLING, R22.43. TECHNIQUE: Ultrasound examination of the left upper extremity venous system(s) is performed using gr ayscale, color-flow, and spectral Doppler analysis. COMPARISON: No exams were available for comparison FINDINGS: Left Deep Veins:The visualized internal jugular and subclavian veins are patent. The axillary and br achial veins are patent and display normal color flow, augmentation and compressibility. Superficial Veins:The visualized cephalic and basilic veins are patent and display normal color flow, augmentation and compressibility. The visualized portions of the left radial vein show normal compr ession. Soft tissues: Unremarkable. IMPRESSION: No evidence of a left upper extremity deep venous thrombosis. DATA REPOSITORY:
--- OUTSIDE RECORDS SUMMARY | 2023-11-24 01:18 | XMS_ITS | Referral Summary ---
Author Organization [facility] Address [address] [place] [address] Care Team Providers Care Flotation Tender Helper Name Role Phone Unavailable Primary Care Provider Unavailabl e Encounters Date Type Department Care Team Description 11/17/2023 Lab Requisition [facility] Pathology & Laboratory Medicine - [facility] [address] [place] [address] Outr Resulting Lab, Provider from Last 3 [...] Lyme Ab Negative Negative 11/18/2023 11:08 EDT [facility] Blood VENOUS BLOOD / Unknown 11/16/2023 9:50 EDT 11/17/2023 18:10 EDT Provider Outr Resulting Lab IMMUNOLOGY A ND SEROLOGY ORDERABLES [facility] [address] [place] [address] from Last 3 Months
--- OUTSIDE RECORDS SUMMARY | 2023-11-24 01:18 | XMS_ITS | Clinical Summary ---
Author Organization [facility] Address [address] [place] [address] Care Team Providers Care Biometrics Specialist Name Role Phone Unavailable Primary Care Provider Unavailabl e Encounters Date Type Department Care Team Description 11/17/2023 Lab Requisition [facility] Pathology & [place] [address] Outr Resulting Lab, Provider from Last 3 [...] 2012 Fall Risk Screening 2017 COVID-19 Vaccine (2022- season) 2023 Procedures Procedure Name Priority Date/Time Associated Diagnosis Comments LYME AB Routine 11/16/2023 9:50 EDT from Last 3 Months Results * LYME AB (11/16/2023 9:50 EDT) Lyme Ab Negative Negative 11/18/2023 11:08 EDT [facility] Blood VENOUS BLOOD / Unknown 11/16/2023 9:50 EDT 11/17/2023 18:10 EDT Provider Outr Resulting Lab IMMUNOLOGY A ND SEROLOGY ORDERABLES [facility] [address] [place] [address] from Last 3 Months
--- OUTSIDE RECORDS SUMMARY | 2023-11-24 01:18 | XMS_ITS | Encounter Summary ---
Author Organization [facility] Address [address] [place] [address] Care Team Providers Care Client Delivery Specialist Name Role Phone Unavailable Primary Care Provider Unavailabl e Encounter Details Date Type Department Care Team (Late st Contact Info) Description 11/17/2023 Lab Requisition [facility] Pathology & Laboratory Medicine - [facility] [address] [place] [address] Outr Resulting Lab, Provider Social History Tobacco [...] Lyme Ab Negative Negative 11/18/2023 11:08 EDT [facility] Blood VENOUS BLOOD / Unknown 11/16/2023 9:50 EDT 11/17/2023 18:10 EDT Provider Outr Resulting Lab IMMUNOLOGY A ND SEROLOGY ORDERABLES [facility] [address] [place], [place] [id number] documented in this encounter Visit Diagnoses Not on filedocumented in this encounter
--- OUTSIDE RECORDS SUMMARY | 2023-11-24 01:18 | XMS_ITS | Encounter Summary ---
Author Organization [facility] Address [address] [place] [address] Care Team Providers Care Business Objects Developer Name Role Phone Unavailable Primary Care Provider Unavailabl e Encounter Details Date Type Department Care Team (Late st Contact Info) Description 03/01/2023 Lab Requisition [facility] Pathology & [place] [address] Outr Resulting Lab, Provider Social History Tobacco [...] Marker 2.7 <8.1 ng/mL 03/03/2023 8:36 EDT [facility] Comment: AFP Tumor Marker [...] Resulting Lab CHEMISTRY & BLOOD GAS ORDERABLES [facility] [address] [place] [address] documented in this encounter Visit Diagnoses Not on filedocumented in this encounter
--- OUTSIDE RECORDS SUMMARY | 2023-11-24 01:19 | XMS_ITS | Encounter Summary ---
Author Organization [facility] [place] [address] Care Team Providers Care Jig Hand Name Role Phone Nicolasa Prince APRN Primary Care Provider +1- [phone] Encounter Details Date Type Department Care Team [...] on filedocumented in this encounter Care Teams Jig Hand Relationship Specialty Start Date End Date Nicolasa Prince APRN [address] [place] [address] PCP - General Family Medicine 01/08/21 documented as of this encounter
--- OUTSIDE RECORDS SUMMARY | 2023-11-24 01:19 | XMS_ITS | Encounter Summary ---
Author Organization [facility] [place] [address] Care Team Providers Care Clinical Business Manager Name Role Phone Nicolasa Prince YULIA Primary Care Provider +1- [phone] Reason for Visit * Auth/Cert (Routine) Specialty [...] GI ENDOSCOPY COLONOSCOPY, DIAGNOSTIC Elin Carlson MD [facility] [place] [address] [facility] Referral ID Status Reason Start Date Expiration Date Visits Re quested Visits Authorized [id number] 1 1 Encounter Details Date Type Department Care Team (Latest Contact Info) Description 08/07/2022 12:50 PM EDT - 08/07/2022 4:14 PM EDT Hospital Encounter Gastroenterology at [facility] [place] [place] [address] Elin Carlson MD [facility] [place] [id number] Discharge Disposition: Home Social History Tobacco Use [...] the day after the test, use an nhnw-mwt-uhlidkt spray or lozenges to numbyour throat. Warm [...] occurs, please contact your doctor. Please call [phone] before 8pm Mon-Fri with problems, questions, or concerns. If you call after 8pm or on weekends, call the Hospital at [phone] and ask for the Manager Pulmonary household refrigeration mechanic and the laser operator will contact that person for you. [...] more? You can view health information on [employer], your personal patient account. Log in or sign up today. Content Version: 12.2 ?? [id number] [employer]. Care instructions adapted under license by [facility]. If you have questions about a medical condition or this instruction, always ask your healthcare professional. [employer] disclaims any warranty or liability for your [...] Diagnosis Code ??? Atherosclerotic heart disease of [place] coronary artery without angina pectoris I25.10 EXAM: [...] 2:57 PM EDT Colonoscopy, Flex, W/Control, Bleeding ([id number]) 08/07/2022 2:21 PM EDT Hepatic cirrhosis, unspecified hepatic cirrhosis type, unspecified whether ascites present Screening for colon cancer Colonoscpy, Flex, W/Dir Submuc Inject ([id number]) 08/07/2022 2:21 PM EDT Hepatic cirrhosis, unspecified hepatic cirrhosis type, unspecified whether ascites present Screening for colon cancer Colonoscopy, Remv [place], Snare ([id number]) 08/07/2022 2:21 PM EDT Hepatic cirrhosis, unspecified hepatic cirrhosis type, unspecified whether ascites present Screening for colon cancer Upper GI Endoscopy, Diagnostic ([id number]) 08/07/2022 2:21 PM EDT Hepatic cirrhosis, unspecified hepatic cirrhosis type, unspecified whether ascites present Screening for colon cancer UPPER GI ENDOSCOPY Routine 08/07/2022 2: 10 PM EDT COLONOSCOPY Routine 08/07/2022 2:10 PM EDT documented in this encounter Results * Specimen to Pathology (08/07/2022 3:25 PM EDT) AP Specimen 08/07/2022 3:25 PM EDT 08/07/2022 3:[address] [facility] - 08/07/2022 3:25 PM EDT Specimen requisition ordered. ??Separate Pathology report to follow Elin Carlson MD PATHOLOGY/CYTOLOGY O MEENU Performing Organization Address [facility] Co de Phone Number [facility] [place] [address] * Specimen to Pathology (08/07/2022 3:25 PM EDT) AP Specimen 08/07/2022 3:25 PM EDT 08/07/2022 3:[address] [facility] - 08/07/2022 3:25 PM EDT Specimen requisition ordered. ??Separate Pathology report to follow Elin Carlson MD PATHOLOGY/CYTOLOGY O RDMILLIE Performing Organization Address [facility] [place] [address] * Surgical Pathology Report (08/07/2022 2:57 PM EDT) FINAL DIAGNOSIS (AP) [id number] ? Location: 4T; EA12; A The signing [...] Arpit Verified: ??08/26/2022 16:10 ??Pathologist Performed at: ??-[facility] Dept. of Pathology, [place] [address] Property Controller: Stefan Min MD, FCAP, ??CLIA Certificate: [id number] SPECIMEN(S) SUBMITTED A - transverse colon polyp, [...] toto ??in 2 cassettes labeled B1-B2. ??shb 08/26/2022 4:[address] [facility] 08/07/2022 2:57 PM EDT Elin Carlson MD PATHOLOGY/CYTOLOGY O RDERABLES [facility] [place] [address] * UPPER GI ENDOSCOPY (08/07/2022 2:10 PM EDT) [facility] UPPER GI ENDOSCOPY [facility] Endoscopy Procedure Date: 08/07/2022 2:10 PM ? Patient Name: Cookie Salgado ? Date of : 1950 ? Age: 71 ? Order #: [id number] ? Instrument Name: [id number]- [id number] ? Procedure: ? Upper GI endoscopy Indications: [...] PM PROVATION 08/07/2022 2:10 PM EDT Nicolasa H Chute DIVISION TOLL WIRE CHIEF GENERAL SURGICAL O RDERABLES PROVATION * COLONOSCOPY (08/07/2022 2:10 PM EDT) COLONOSCOPY [facility] Endoscopy Procedure Date: 08/07/2022 2:10 PM ? Patient Name: Cookie Salgado ? Date of : 1950 ? Age: 71 ? Order #: [id number] ? Instrument Name: [id number]- [id number] ? Procedure: ? Colonoscopy Indications: ? Screening [...] ? was evaluated using the BBPS ? (Gypsum Bowel Preparation Scale) ? with scores of: [...] Procedure Code(s): ? --- Professional --- ? 79130, Colonoscopy, flexible; with ? endoscopic mucosal resection ? 90925, 59, Colonoscopy, flexible; ? with removal of tumor(s), polyp(s), ? or other lesion(s) by snare ? technique CPT copyright 2021 [employer]. All rights reserved. The codes documented in this report are preliminary and upon alley worker review may be revised to meet current [...] RN) documented in this encounter Care Teams Clinical Business Manager Relationship Specialty Start Date End Date Nicolasa Prince, DIVISION TOLL WIRE CHIEF [address] [place] [address] PCP - General Family Medicine 01/08/21 documented as of this encounter
--- OUTSIDE RECORDS SUMMARY | 2023-11-24 01:19 | XMS_ITS | Encounter Summary ---
Author Organization [facility] [place] [address] Care Team Providers Care Sheet Metal Installer Name Role Phone Nicolasa Prince APRN Primary Care Provider +1- [phone] Encounter Details Date Type Department Care Team (Late st Contact Info) Description 07/22/2022 External Results Gastroenterology at [facility] [place] [address] Irene Lara MD [facility] [place] [address] Social History Tobacco Use Types Packs/Day Years [...] on filedocumented in this encounter Care Teams Sheet Metal Installer Relationship Specialty Start Date End Date Nicolasa Prince APRN [address] [place] [address] PCP - General Family Medicine 01/08/21 documented as of this encounter
--- OUTSIDE RECORDS SUMMARY | 2023-11-24 01:19 | XMS_ITS | Encounter Summary ---
Author Organization [facility] [place] [address] Care Team Providers Care Tungsten Refiner Name Role Phone Nicolasa Prince YULIA Primary Care Provider +1- [phone] Reason for Visit * Auth/Cert (Routine) Specialty [...] GI ENDOSCOPY COLONOSCOPY, DIAGNOSTIC Elin Carlson MD [facility] [place] [address] [facility] Referral ID Status Reason Start Date Expiration Date Visits Re quested Visits Authorized [id number] 1 1 Encounter Details Date Type Department Care Team (Late st Contact Info) Description 08/07/2022 2:00 PM EDT - 08/07/2022 3:00 PM EDT [place] [address] Elin Carlson MD [place] [address] EGD, UPPER GI ENDOSCOPY (WRVU 2.09) Social [...] the day after the test, use an vweo-dql-exajvlu spray or lozenges to numbyour throat. Warm [...] occurs, please contact your doctor. Please call [phone] before 8pm Mon-Fri with problems, questions, or concerns. If you call after 8pm or on weekends, call the Hospital at [phone] and ask for the Schedule Hanger application support analyst and the journeyman operator assistant will contact that person for you. When [...] more? You can view health information on [employer], your personal patient account. Log in or sign up today. Content Version: 12.2 ?? [id number] [employer]. Care instructions adapted under license by [facility]. If you have questions about a medical condition or this instruction, always ask your healthcare professional. [employer] disclaims any warranty or liability for your [...] Diagnosis Code ??? Atherosclerotic heart disease of [place] coronary artery without angina pectoris I25.10 EXAM: [...] 2:57 PM EDT Colonoscopy, Flex, W/Control, Bleeding (37285) 08/07/2022 2:21 PM EDT Hepatic cirrhosis, unspecified hepatic cirrhosis type, unspecified whether ascites present Screening for colon cancer Colonoscpy, Flex, W/Dir Submuc Inject (91133) 08/07/2022 2:21 PM EDT Hepatic cirrhosis, unspecified hepatic cirrhosis type, unspecified whether ascites present Screening for colon cancer Colonoscopy, Remv Lesn, Snare (46625) 08/07/2022 2:21 PM EDT Hepatic cirrhosis, unspecified hepatic cirrhosis type, unspecified whether ascites present Screening for colon cancer Upper GI Endoscopy, Diagnostic (02992) 08/07/2022 2:21 PM EDT Hepatic cirrhosis, unspecified hepatic cirrhosis type, unspecified whether ascites present Screening for colon cancer UPPER GI ENDOSCOPY Routine 08/07/2022 2: 10 PM EDT COLONOSCOPY Routine 08/07/2022 2:10 PM EDT documented in this encounter Results * Specimen to Pathology (08/07/2022 3:25 PM EDT) AP Specimen 08/07/2022 3:25 PM EDT 08/07/2022 3:25 PM EDT Narrative [facility] - 08/07/2022 3:25 PM EDT Specimen requisition ordered. ??Separate Pathology report to follow Elin Carlson MD PATHOLOGY/CYTOLOGY O MEENU Performing Organization Address [facility] Co de Phone Number [facility] [place] [address] * Specimen to Pathology (08/07/2022 3:25 PM EDT) AP Specimen 08/07/2022 3:25 PM EDT 08/07/2022 3:25 PM EDT Narrative [facility] - 08/07/2022 3:25 PM EDT Specimen requisition ordered. ??Separate Pathology report to follow Elin Carlson MD PATHOLOGY/CYTOLOGY O RDMILLIE Performing Organization Address [facility] [place] [address] * Surgical Pathology Report (08/07/2022 2:57 PM EDT) FINAL DIAGNOSIS (AP) [id number] ? Location: 4T; EA12; A The signing [...] Arpit Verified: ??08/26/2022 16:10 ??Pathologist Performed at: ??-[facility] Dept. of Pathology, [place] [address] Software Engineering Project Manager: Stefan Min MD, FCAP, ??CLIA Certificate: [id number] SPECIMEN(S) SUBMITTED A - transverse colon polyp, [...] labeled B1-B2. ??shb 08/26/2022 4:10 PM EDT [facility] 08/07/2022 2:57 PM EDT Elin Carlson MD PATHOLOGY/[place] [address] * UPPER GI ENDOSCOPY (08/07/2022 2:10 PM EDT) Pathologist [facility] UPPER GI ENDOSCOPY [facility] Endoscopy Procedure Date: 08/07/2022 2:10 PM ? Patient Name: Cookie Salgado ? N: [id number] ? Date of : 1950 ? Age: 71 ? Order #: [id number] ? Instrument Name: [id number]- [id number] ? Procedure: ? Upper GI endoscopy Indications: [...] PROVATION 08/07/2022 2:10 PM EDT Nicolasa Prince [employer] GENER[employer] O RDERABLES PROVATION * COLONOSCOPY (08/07/2022 2:10 PM EDT) COLONOSCOPY [facility] Endoscopy Procedure Date: 08/07/2022 2:10 PM ? Patient Name: Cookie Salgado ? Date of : 1950 ? Age: 71 ? Order #: [id number] ? Instrument Name: [id number]- [id number] ? Procedure: ? Colonoscopy Indications: ? Screening [...] ? was evaluated using the BBPS ? ([place] Bowel Preparation Scale) ? with scores of: [...] Procedure Code(s): ? --- Professional --- ? 89456, Colonoscopy, flexible; with ? endoscopic mucosal resection ? 10861, 59, Colonoscopy, flexible; ? with removal of tumor(s), polyp(s), ? or other lesion(s) by snare ? technique CPT copyright 2021 [employer]. All rights reserved. The codes documented in this report are preliminary and upon weaving machine operator review may be revised to meet current compliance requirements. Attending Participation: ? I personally performed the entire procedure. ? Elin Carlson MD _ Elin Carlson MD 08/07/2022 3:40:14 PM This report has been signed electronically. Number of Addenda: 0 Note Initiated On: 08/07/2022 2:10 PM PROVATION 08/07/2022 2:10 PM EDT Nicolasa Prince [employer] PROVATION documented in [...] Ca, RN)1442 (Given - Provider: Leticia Ca, RN) midazolam (pf) (Versed) (1 mg/mL) multi-dose injection (CANCELED) ONCE PRN, Starting on Wed08/07/22 at 1424, Until Wed08/07/22 at 1814, Intra-Operative (Intra-Procedure), Routine 1424 (Given - Provid er: Leticia Ca RN)1427 (Given - Provider: Leticia Ca, RN)1431 (Given - Provider: Leticia aC, RN)1442 (Given - Provider: Leticia Ca, RN)1450 (Given - Provider: Leticia Ca RN) documented in this encounter Care Teams Tungsten Refiner Relationship Specialty Start Date End Date Nicolasa Prince, FINANCIAL DEALERS [address] [place] [address] PCP - General Family Medicine 01/08/21 documented as of this encounter
--- OUTSIDE RECORDS SUMMARY | 2023-11-24 01:19 | XMS_ITS | Encounter Summary ---
[place] [address] Care Team Providers Care Landing Man Name Role Phone Nicolasa Prince APRN Primary Care Provider +1- [phone] Encounter Details Date Type Department Care Team (Latest Contact Info) Description 09/28/2023 11:15 AM EDT Laboratory Appointment Lab [address] [place] [address] Primary biliary cholangitis Social History Tobacco Use [...] Total Protein 7.6 6.1 - 8.0 g/dL [facility] Albumin 4.4 3.2 - 5.2 g/dL [facility] AST 25 0 - 30 unit/L [facility] ALT 23 0 - 30 unit/L [facility] Alk Phos 70 35 - 105 unit/L [facility] Total Bilirubin 0.7 0.2 - 1.3 mg/dL [facility] Bili, Direct 0.3 0.0 - 0.3 mg/dL [facility] Blood 09/28/2023 11:4 6 AM EDT 09/28/2023 11:51 AM EDT Narrative Resulting Agency Comment Spec In Lab Irene Lara MD CHEMISTRY ORDERABLES Performing Organization Address City/State/[facility] Co de Phone Number [facility] [place] [address] documented in this encounter Visit Diagnoses Diagnosis Primary biliary cholangitis documented in this encounter Care Teams Landing Man Relationship Specialty Start Date End Date Nicolasa Prince APRN [address] [place] [address] PCP - General Family Medicine 01/08/21 documented as of this encounter
--- OUTSIDE RECORDS SUMMARY | 2023-11-24 01:19 | XMS_ITS | Encounter Summary ---
Author Organization [facility] [place] [address] Care Team Providers Care Counter Hop Name Role Phone Nicolasa Prince APRN Primary Care Provider +1- [phone] Reason for Visit * Reason Comments Medication Refill Encounter Details Date Type Department Care Team (Late st Contact Info) Description 12/14/2022 [place] [address] Irene Lara MD [facility] [place] [address] Autoimmune hepatitis Social History Tobacco Use Types [...] documented in this encounter Care Teams Counter Hop Relationship Specialty Start Date End Date Nicolasa Prince APRN [address] [place] [address] PCP - General Family Medicine 01/08/21 documented as of this encounter
--- OUTSIDE RECORDS SUMMARY | 2023-11-24 01:19 | XMS_ITS | Encounter Summary ---
Author Organization [facility] [place] [address] Care Team Providers Care Cashier Tube Room Name Role Phone Nicolasa Prince APRN Primary Care Provider +1- [phone] Encounter Details Date Type Department Care Team (Late st Contact Info) Description 06/09/2022 Telephone [place] [address] Mai Larson Social History Tobacco Use Types Packs/Day Years Used Date Smoking Tobacco: Former Smokeless Tobacco: Never Sex and Gender Information Value Date Recorded Sex Assigned at Not on file Gender Identity Not on file Sexual Orientation Not on file documented as of this encounter Miscellaneous Notes * Telephone Encounter - Mai Larson - 06/09/2022 10:01 AM EST Cookie Salgado [id number] Diagnosis/Indication: cirrhosis screen for varices, screening colonoscopy [...] Upper Endoscopy & Colonoscopy before? Yes: Date [facility], 5.5 years ago, doesn't remember what [...] No 18. You must have a responsible alliance party who will drive you to your procedure, stay on campus for the entire duration of your procedure, and drive you home from your procedure. Who will likely be your city driver for the procedure? *Please Verify the [...] on filedocumented in this encounter Care Teams Cashier Tube Room Relationship Specialty Start Date End Date Nicolasa Prince APRN [address] [place] [address] PCP - General Family Medicine 01/08/21 documented as of this encounter
--- OUTSIDE RECORDS SUMMARY | 2023-11-24 01:19 | XMS_ITS | Encounter Summary ---
[facility] [place] [address] Care Team Providers Care Bondactor Machine Operator Name Role Phone Nicolasa Prince APRN Primary Care Provider +1- [phone] Encounter Details Date Type Department Care Team (Late st Contact Info) Description 05/23/2022 Tele[place] [address] Alisia Driver Social History Tobacco Use Types [...] it can be handled by: [facility] Senior Informatica Developer documented in this encounter Plan of Treatment Not on file documented as of this encounter Visit Diagnoses Not on filedocumented in this encounter Care Teams Bondactor Machine Operator Relationship Specialty Start Date End Date Nicolasa Prince APRN [address] [place] [address] PCP - General Family Medicine 01/08/21 documented as of this encounter
--- OUTSIDE RECORDS SUMMARY | 2023-11-24 01:19 | XMS_ITS | Encounter Summary ---
Author Organization [facility] [place] [address] Care Team Providers Care Elastic Attacher Zigzag Name Role Phone Nicolasa Prince APRN Primary Care Provider +1- [phone] Encounter Details Date Type Department Care Team (Late st Contact Info) Description 09/28/2023 1:00 PM EDT Office [place] [address] Irene Lara MD [facility] [place] [address] Primary biliary cholangitis; Hepatic cirrhosis, unspecified hepatic [...] Patient: Prema Salgado : 1950 Provider: Irene Laar MD Problem List: PBC/ AIH - Initally [...] [place] and she was managed by a quality control engineer at [facility]. Her records were extensively reviewed in [...] normal since approximately 2016. She moved to [place] in 2019.. Living with her two brothers. [...] Vitals: 09/28/23 1310 BP: 118/57 BP Location ([facility]): Right arm Patient Position: Sitting BP Cuff [...] screening in six months- will do in [facility], , GIF here in one year Time spent with patient: 25 min Time spent reviewing records, documenting- all today : 8 min Irene Lara MD Section of Gastroenterology & Hepatology [address] [place] [address] Cc: Nicolasa Prince APRN SURGICAL PATHOLOGY REPORT Patient: PREMA SALGADO MR #: [id number] Submitted by: Elie Moreno MD FINAL DIAGNOSIS [...] the ductules cannot be definitively distinguished from [place] bile ducts. There is patchy periportal hepatocellular [...] prior liver biopsy reviewed at [facility] (see accession number [id number]), although the slides are not available for [...] present documented in this encounter Care Teams Elastic Attacher Zigzag Relationship Specialty Start Date End Date Nicolasa Prince APRN [address] [place] [address] PCP - General Family Medicine 01/08/21 documented as of this encounter
--- OUTSIDE RECORDS SUMMARY | 2023-11-24 01:19 | XMS_ITS | Encounter Summary ---
Author Organization [facility] [place] [address] Care Team Providers Care Administrative And Program Specialist Name Role Phone Nicolasa Prince APRN Primary Care Provider +1- [phone] Encounter Details Date Type Department Care Team (Late st Contact Info) Description 03/09/2023 External [place] [address] Isabela March RN Social History Tobacco Use [...] on filedocumented in this encounter Care Teams Administrative And Program Specialist Relationship Specialty Start Date End Date Nicolasa Prince, AUTOMOTIVE HEAVY MECHANIC [address] [place] [address] PCP - General Family Medicine 01/08/21 documented as of this encounter
--- OUTSIDE RECORDS SUMMARY | 2023-11-24 01:19 | XMS_ITS | Encounter Summary ---
Author Organization [facility] [place] [address] Care Team Providers Care Ultrasonic Cleaner Name Role Phone Nicolasa Prince APRN Primary Care Provider +1- [phone] Encounter Details Date Type Department Care Team (Late st Contact Info) Description 01/27/2023 External Results [place] [address] Irene Lara MD [facility] [place] [address] Social History Tobacco Use Types Packs/Day Years [...] on filedocumented in this encounter Care Teams Ultrasonic Cleaner Relationship Specialty Start Date End Date Nicolasa Prince, YULIA [address] [place] [address] PCP - General Family Medicine 01/08/21 documented as of this encounter
--- OUTSIDE RECORDS SUMMARY | 2023-11-24 01:19 | XMS_ITS | Encounter Summary ---
Author Organization [facility] [place] [address] Care Team Providers Care Nylon Hot Wire Cutter Name Role Phone Nicolasa Prince APRN Primary Care Provider +1- [phone] Encounter Details Date Type Department Care Team (Late st Contact Info) Description 12/09/2022 Telephone [place] [address] Mai Larson Social History Tobacco Use Types [...] - 12/09/2022 2:33 PM EDT Cookie Damian [id number] Diagnosis/Indication: 6 mo Please review patient chart [...] procedure? No You must have a responsible green party who will drive you to your procedure, stay on campus for the entire duration of your procedure, and drive you home from your procedure. Who will likely be your hog driver for the procedure? *Please Verify the [...] on filedocumented in this encounter Care Teams Nylon Hot Wire Cutter Relationship Specialty Start Date End Date Nicolasa Prince APRN [address] [place] [address] PCP - General Family Medicine 01/08/21 documented as of this encounter
--- OUTSIDE RECORDS SUMMARY | 2023-11-24 01:19 | XMS_ITS | Encounter Summary ---
Author Organization [facility] Address [facility] [place] [address] Care Team Providers Care Steel Fixer Name Role Phone Nicolasa Prince APRN Primary Care Provider +1- [phone] Encounter Details Date Type Department Care Team (Late st Contact Info) Description 02/15/2022 Orders [place] [address] Irene Lara MD [facility] [place] [address] Hepatic cirrhosis, unspecified hepatic cirrhosis type, unspecified [...] colon documented in this encounter Care Teams Steel Fixer Relationship Specialty Start Date End Date Nicolasa Prince APRN [address] [place] [address] PCP - General Family Medicine 01/08/21 documented as of this encounter
--- OUTSIDE RECORDS SUMMARY | 2023-11-24 01:19 | XMS_ITS | Encounter Summary ---
Author Organization [facility] [place] [address] Care Team Providers Care Finished Goods Planner Name Role Phone Nicolasa Prince APRN Primary Care Provider +1- [phone] Encounter Details Date Type Department Care Team (Late st Contact Info) Description 09/30/2022 1:00 PM EDT Office [place] [address] Irene Lamar MD [facility] [place] [address] Primary biliary cholangitis; Hepatic cirrhosis, unspecified hepatic [...] PBC/AIH. Her original diagnosis was made in [place] and she was managed by a prepared foods team leader at [facility]. Her records were extensively reviewed in [...] normal since approximately 2016. She moved to [place] in 2019.. Living with her two brothers. [...] Vitals: 09/30/22 1248 BP: 128/72 BP Location ([facility]): Right arm Patient Position: Sitting BP Cuff [...] this in 3 months. Orders sent to [facility] PCP considering ozempic for diabetes, I have no concerns about this from a liver standpoint and support its use. Time spent with patient: 25 min Time spent reviewing records, documenting- all today : 7 min Irene Lamar MD Section of Gastroenterology & Hepatology [address] [place] [address] Cc: Nicolasa Prince APRN SURGICAL PATHOLOGY REPORT ? Patient: PREMA SALGADO ?MR #: [id number] ?Submitted by: Elie Moreno MD FINAL DIAGNOSIS [...] the ductules cannot be definitively distinguished from [place] bile ducts. ??There is patchy periportal hepatocellular [...] prior liver biopsy reviewed at [facility] (see accession number [id number]), although the slides are not available for direct comparison at this time. ??However, based on the microscopic description, it appears that fibrosis may have progressed. documented in this encounter Plan of Treatment Not on file documented as of this encounter Results * AFP tumor marker (03/30/2023 10:23 AM EST) AFP 2.8 <=8.3 ng/mL [facility] Comment: This result was generated using a Mendoza Jonathan immunoassay. ??Results obtained from other methods or manufacturers cannot be used interchangeably with this method. Blood 03/30/2023 10:2 3 AM EST 03/30/2023 10:30 AM EST Narrative Resulting Agency Comment Spec In Lab Irene Lamar MD CHEMISTRY ORDERABLES Performing Organization Address [facility] de Phone Number [facility] [place] [address] * Prothrombin Time (03/30/2023 10:23 AM EST) PT 12.0 9.4 - 12.5 sec [facility] INR 1.1 [facility] Comment: An INR [...] MD HEMATOLOGY ORDERABLE S Performing Organization Address [facility] de Phone Number [facility] [place] [address] * (ABNORMAL) Comprehensive metabolic panel (non-fasting) (03/30/2023 [...] In Lab Irene Lamar MD CHEMISTRY ORDERABLES [facility] [place] [address] * US Abdomen Limited Hepatology Protocol (03/30/2023 [...] Ke Jay MD at 03/30/2023 12:19 PM Electronically signed by: Ke Jay MD, [facility] ([phone]), at 03/30/2023 12:19 PM Thank you for letting us participate in the care of this patient. If you are a health care provider and have any questions regarding this report, please contact the number above. For patients who have questions, please contact the health direct care worker that requested your imaging first. ? Ke Jay, Staff Physician Electronically Signed Final Report ?? 03/30/2023 12:27 pm Narrative 03/30/2023 12:28 PM EST Abdominal ? (Signed Final 03/30/2023 12:27 pm) PATIENT INFO: ID #: ? [id number] ?: ??[birth year] (72 yrs)(F) Name: ? PREMA SALGADO ?Visit Date: 03/30/2023 09:52 am PERFORMED BY: Attending: ?Pierre LUTHER, Ke Conklin Resident: ? Joseph LUTHER, Ada Barrow Performed By: ? Elba Milian RDMS Referred By: ?IRENE LAMAR Location: ? [place] [facility] Hep[facility] Protocol - Abdominal ?98854 Limited Survey Single Organ or Quadrant - [id number] INDICATIONS: cirrhosis, screen for hcc COMPARISON: US: [...] 03/30/2023 12:27 pm) PATIENT INFO: ID #: [id number] : [birth year] (72 yrs)(F) Name: PREMA SALGADO Visit Date: 03/30/2023 09:52 am PERFORMED BY: Attending: Ke Jay MD Resident: Ada Ruiz MD Performed By: Elba Milian RDMS Referred By: IRENE LAMAR Location: [place] SERVICE(S) PROVIDED: [facility] - Hepatology Protocol - Abdominal 05802 Limited Survey Single Organ or Quadrant - [id number] INDICATIONS: cirrhosis, screen for hcc COMPARISON: US: [...] Ke Jay MD at 03/30/2023 12:19 PM Electronically signed by: Ke Jay MD, [facility] ([phone]), at 03/30/2023 12:19 PM Thank you for letting us participate in the care of this patient. If you are a health care provider and have any questions regarding this report, please contact the number above. For patients who have questions, please contact the health direct care worker that requested your imaging first. Ke Jay, Staff Physician Electronically Signed Final Report 03/30/2023 12:27 pm Irene Lamar MD IMG US GEN ORDERABLE S documented in this encounter Visit Diagnoses Diagnosis Primary biliary cholangitis Hepatic cirrhosis, unspecified hepatic cirrhosis type, unspecified whether ascites present Primary biliary cholangitis Hepatic cirrhosis, unspecified hepatic cirrhosis type, unspecified whether ascites present documented in this encounter Care Teams Finished Goods Planner Relationship Specialty Start Date End Date [place] Nicolasa Giles, YULIA [address] [place] [address] PCP - General Family Medicine 01/08/21 documented as of this encounter
--- OUTSIDE RECORDS SUMMARY | 2023-11-24 01:19 | XMS_ITS | Encounter Summary ---
Author Organization [facility] [place] [address] Care Team Providers Care Tafe Registrar Name Role Phone Nicolasa Prince APRN Primary Care Provider +1- [phone] Reason for Visit * Reason Comments Medication Refill Encounter Details Date Type Department Care Team (Late st Contact Info) Description 11/19/2023 Refill [place] [address] Irene Lara MD [facility] [place] [address] Autoimmune hepatitis Social History Tobacco Use Types [...] hepatitis documented in this encounter Care Teams Tafe Registrar Relationship Specialty Start Date End Date Nicolasa Prince APRN [address] [place] [address] PCP - General Family Medicine 01/08/21 documented as of this encounter
--- OUTSIDE RECORDS SUMMARY | 2023-11-24 01:19 | XMS_ITS | Encounter Summary ---
Author Organization [facility] [place] [address] Care Team Providers Care Leather Worker Name Role Phone Nicolasa Prince APRN Primary Care Provider +1- [phone] Reason for Visit * Reason Comments Medication Refill Encounter Details Date Type Department Care Team (Late st Contact Info) Description 07/17/2022 [place] [address] Irene Lara MD [facility] [place] [address] Autoimmune hepatitis Social History Tobacco Use Types [...] labs. She would like orders faxed to [facility]. Orders sent. Provided patient with contact information for [facility] Lab. documented in this encounter Plan of Treatment Not on file documented as of this encounter Visit Diagnoses Diagnosis Autoimmune hepatitis documented in this encounter Care Teams Leather Worker Relationship Specialty Start Date End Date Nicolasa Prince APRN [address] [place] [address] PCP - General Family Medicine 01/08/21 documented as of this encounter
--- OUTSIDE RECORDS SUMMARY | 2023-11-24 01:19 | XMS_ITS | Clinical Summary ---
Author Organization [facility] Address [facility] [place] [address] Care Team Providers Care Parts Chaser Name Role Phone Nicolasa Prince YULIA Primary Care Provider +1- [phone] Allergies Active Allergy Reactions Criticality Noted Date Comments Amoxicillin 01/22/2021 Ciprofloxacin 01/22/2021 Egg Derived Other (See Comments),Anaphylaxi s,Hives,Itching High 02/17/2013 Also Egg Metformin Nausea And Vomiting Low 10/29/2020 Mold Other (See Comments) 01/22/2021 Also SMUT Gpxpjsy-Pmp-Eam Reductase Inhibitors Low 10/25/2020 Other reaction(s): Myalgia/Myositis/A [...] Diagnosed Date 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/2021 Encounters Date Type Department Care Team Description 11/19/2023 Refill [place] [address] Carolynn Lamar MD Autoimmune hepatitis 09/28/2023 1:00 PM EDT Office [place] [address] Carolynn Lamar MD Primary biliary cholangitis; Hepatic cirrhosis, unspecified hepatic cirrhosis type, unspecified whether ascites present 09/28/2023 11:15 AM EDT Laboratory Appointment Lab [address] [address] Primary biliary cholangitis 09/28/2023 10:06 AM EDT - 09/28/2023 11:59 PM EDT Hospital En[place] [address] Carolynn Lamar MD Biliary cirrhosis Discharge Disposition: Home 09/28/2023 Travel from Last 3 Months Social History Tobacco [...] Total Protein 7.6 6.1 - 8.0 g/dL [facility] Albumin 4.4 3.2 - 5.2 g/dL [facility] AST 25 0 - 30 unit/L [facility] ALT 23 0 - 30 unit/L [facility] Alk Phos 70 35 - 105 unit/L [facility] Total Bilirubin 0.7 0.2 - 1.3 mg/dL [facility] Bili, Direct 0.3 0.0 - 0.3 mg/dL [facility] Blood 09/28/2023 11:4 6 AM EDT 09/28/2023 11:51 AM EDT Narrative Resulting Agency Comment Spec In Lab Carolynn Lamar MD CHEMISTRY ORDERABLES [facility] [place] [place] [address] * US Abdomen Limited Hepatology Protocol (09/28/2023 10:54 AM EDT) WORKSTATION ID [id number] RAD Anatomical Region Laterality Modality Abdomen Ultrasound [...] AM Electronically signed by: Fiordaliza Fabian MD, [facility] ([phone]), at 09/28/2023 11:34 AM Thank you for letting us participate in the care of this patient. If you are a health care provider and have any questions regarding this report, please contact the number above. For patients who have questions, please contact the health geriatric care manager that requested your imaging first. ?Fiordaliza Fabian, [facility] Lifter Electronically Signed Final Report ?? 09/28/2023 11:41 am Narrative 09/28/2023 11:42 AM EDT Abdominal ? (Signed Final 09/28/2023 11:41 am) PATIENT INFO: ID #: ? [id number] ?: ??[birth year] (72 yrs)(F) Name: ? PREMA SALGADO ?Visit Date: 09/28/2023 10:34 am PERFORMED BY: Attending: ?Caren LUTHER, Fiordaliza Prado Resident: ? Madhavi Thomas MD Performed By: ? Joanna Bronson RDMS Referred By: ?CAROLYNN LAMAR Location: ? [place] SERVICE(S) PROVIDED: [facility] - Hepatology Protocol - Abdominal ?98889 Limited Survey Single Organ or Quadrant - [id number] INDICATIONS: cirrhosis, screen for hcc COMPARISON: US [...] 09/28/2023 11:41 am) PATIENT INFO: ID #: [id number] : [birth year] (72 yrs)(F) Name: PREMA SALGADO Visit Date: 09/28/2023 10:34 am PERFORMED BY: Attending: Fiordaliza Fabian MD Resident: Madhavi Thomas MD Performed By: Joanna Bronson RDMS Referred By: CAROLYNN LAMAR Location: [place] SERVICE(S) [facility] - Hepatology Protocol - Abdominal 39156 Limited Survey Single Organ or Quadrant - [id number] INDICATIONS: cirrhosis, screen for hcc COMPARISON: US [...] who have questions, please contact the health geriatric care manager that requested your imaging first. Fiordaliza Fabian, [facility] Lifter Electronically Signed Final Report 09/28/2023 11:41 am Carolynn Lamar MD IMG US GEN ORDERABLE S * (ABNORMAL) Comprehensive metabolic panel (non-fasting) (03/30/2023 10:23 AM EST) Glucose Lvl 110 65 - 199 mg/dL [facility] Comment:Diabetes: >=200 mg/d L plus symptoms BUN 20(H) 8 - 18 mg/dL [facility] Creatinine 0.82 0.70 - 1.20 mg/dL [facility] Sodium 140 135 - 145 mmol/L [facility] Potassium 4.1 3.5 - 5.0 mmol/L [facility] Comment: Please note: ??Patients with WBC >100,000 may have falsely elevated Potassium levels. ??For accurate Potassium quantification in these patients send serum separator tube (gold top) for subsequent determinations. ??Contact the Clinical Chemistry Laboratory if there are any questions. Chloride 105 98 - 107 mmol/L [facility] CO2 22 22 - 31 mmol/L [facility] Anion Gap 13 5 - 15 mmol/L [facility] Calcium 9.8 8.5 - 10.5 mg/dL [facility] Total Protein 7.2 6.1 - 8.0 g/dL [facility] Albumin 4.4 3.2 - 5.2 g/dL [facility] AST 31(H) 0 - 30 unit/L [facility] ALT 24 0 - 30 unit/L [facility] Alk Phos 64 35 - 105 unit/L [facility] Total Bilirubin 0.7 0.2 - 1.3 mg/dL [facility] Estimated GFR 77 >=60 mL/min/1. 73 m?? [facility] Comment: This patient's estimated GFR was [...] Lamar MD CHEMISTRY ORDERABLES Performing Organization Address City/State/[facility] Co de Phone Number [facility] [place] [address] * COLONOSCOPY (02/19/2023 1:47 PM EDT) COLONOSCOPY [facility] Endoscopy Procedure Date: 02/19/2023 1:47 PM ? Patient Name: Prema Salgado ? Date of : 1950 ? Age: 72 ? Order #: [id number] ? Instrument Name: [id number] ? Procedure: ? Colonoscopy Indications: ? Follow-up [...] ? was evaluated using the BBPS ? ([place] Bowel Preparation Scale) ? with scores of: [...] Procedure Code(s): ? --- Professional --- ? 09683, Colonoscopy, flexible; with ? removal of tumor(s), polyp(s), or ? other lesion(s) by snare technique CPT copyright 2021 [employer]. All rights reserved. The codes documented in this report are preliminary and upon clinical coder review may be revised to meet current compliance requirements. Attending Participation: ? I personally performed the entire procedure. ? Elin Carlson MD _ Elin Carlson MD 02/19/2023 2:36:53 PM This report has been signed electronically. Number of Addenda: 0 Note Initiated On: 02/19/2023 1:47 PM PROVATION 02/19/2023 1:47 PM EDT Nicolasa Prince N[employer]IS[employer] WILDLIFE SPECIALIST GENERAL SURGICAL O RDERABLES Performing Organization Address City/State/[facility] Co de Phone Number PROVATION from Last 3 Months or Most Recently Relevant to Health Maintenance Care Teams Parts Chaser Relationship Specialty Start Date End Date Nicolasa Prince [employer] WILDLIFE SPECIALIST [address] [place] [address] PCP - General Family Medicine 01/08/21
--- OUTSIDE RECORDS SUMMARY | 2023-11-24 01:19 | XMS_ITS | Encounter Summary ---
Author Organization [facility] [place] [address] Care Team Providers Care Ground Instructor Basic Name Role Phone Nicolasa Prince APRN Primary Care Provider +1- [phone] Reason for Visit * Reason Comments Medication Refill Encounter Details Date Type Department Care Team (Late st Contact Info) Description 09/15/2022 [place] [address] Irene Lara MD [facility] [place] [address] Autoimmune hepatitis Social History Tobacco Use Types [...] hepatitis documented in this encounter Care Teams Ground Instructor Basic Relationship Specialty Start Date End Date Nicolasa Prince APRN [address] [place] [address] PCP - General Family Medicine 01/08/21 documented as of this encounter
--- OUTSIDE RECORDS SUMMARY | 2023-11-24 01:19 | XMS_ITS | Encounter Summary ---
[facility] [place] [place] [address] Care Team Providers Care Degreaser Operator Name Role Phone Nicolasa Prince APRN Primary Care Provider +1- [phone] Encounter Details Date Type Department Care Team (Latest Contact Info) Description 03/30/2023 10:15 AM EST Laboratory Appointment Lab [address] [place] [address] Primary biliary cholangitis; Hepatic cirrhosis, unspecified hepatic [...] 10:23 AM EST) Neutrophils % 64.6 % [facility] Neutr Abs (ANC) 2.35 1.70 - 6.10 x10(3)/ L [facility] Lymphocytes % 22.9 % [facility] Lymphocytes Abs 0.8(L) 0.9 - 3.2 x10(3)/ L [facility] Monocytes % 10.5 % [facility] Monocyte Abs 0.4 0.3 - 0.9 x10(3)/[facility] Eosinophils % 1.1 % [facility] Eosinophils Abs 0.0 0.0 - 0.4 x10(3)/[facility] Basophils % 0.6 % [facility] Basophils Abs 0.0 0.0 - 0.1 x10(3)/ L [facility] Immature Gran % 0.30 % [facility] Comment: Immature granulocytes(IG's)percentage and absolute count will include metamyelocytes, myelocytes, and promyelocytes. Blood smears from CBCs yielding IG's will be scanned manually for concordance. If this scan disagrees with the automated IG or if promyelocytes are noted, a manual differential will be performed. Sydnee Gran Abs 0.01 0.00 - 0.04 x10(3)/ L [facility] Blood 03/30/2023 10:2 3 AM EST 03/30/2023 10:31 AM EST Narrative Resulting Agency Comment Spec In Lab Irene Lara MD HEMATOLOGY ORDERABLE S [facility] [place] [address] * (ABNORMAL) Hemogram (03/30/2023 10:23 AM EST) WBC 3.6(L) 4.0 - 9.5 x10(3)/[facility] RBC 5.01 4.00 - 5.21 x10(6)/[facility] Hemoglobin 15.8(H) 11.7 - 15.5 g/dL [facility] Hematocrit 46.6(H) 35.7 - 45.8 % [facility] MCV 93.0 82.6 - 94.4 [facility] MCH 31.5 27.1 - 32.0 pg [facility] MCHC 33.9 31.7 - 35.0 g/dL [facility] Platelets 131(L) 145 - 357 x10(3)/[facility] RDWSD 44.9 37.0 - 46.0 [facility] RDWCV 13.2 11.5 - 14.1 % [facility] MPV 10.4 7.6 - 12.9 [facility] nRBC % Auto 0.0 % [facility] nRBC Abs Auto 0.000 0.000 - 0.000 x10(3)/[facility] Blood 03/30/2023 10:2 3 AM EST 03/30/2023 10:31 AM EST Narrative Resulting Agency Comment Spec In Lab Irene Lara MD HEMATOLOGY ORDERABLE S [facility] [place] [address] * (ABNORMAL) Comprehensive metabolic panel (non-fasting) (03/30/2023 10:23 AM EST) Glucose Lvl 110 65 - 199 mg/dL [facility] Comment:Diabetes: >=200 mg/d L plus symptoms BUN 20(H) 8 - 18 mg/dL [facility] Creatinine 0.82 0.70 - 1.20 mg/dL [facility] Sodium 140 135 - 145 mmol/L [facility] Potassium 4.1 3.5 - 5.0 mmol/L [facility] Comment: Please note: ??Patients with WBC >100,000 may have falsely elevated Potassium levels. ??For accurate Potassium quantification in these patients send serum separator tube (gold top) for subsequent determinations. ??Contact the Clinical Chemistry Laboratory if there are any questions. Chloride 105 98 - 107 mmol/L [facility] CO2 22 22 - 31 mmol/L [facility] Anion Gap 13 5 - 15 mmol/L [facility] Calcium 9.8 8.5 - 10.5 mg/dL [facility] Total Protein 7.2 6.1 - 8.0 g/dL [facility] Albumin 4.4 3.2 - 5.2 g/dL [facility] AST 31(H) 0 - 30 unit/L [facility] ALT 24 0 - 30 unit/L [facility] Alk Phos 64 35 - 105 unit/L [facility] Total Bilirubin 0.7 0.2 - 1.3 mg/dL [facility] Estimated GFR 77 >=60 mL/min/1. 73 m?? [facility] Comment: This patient's estimated [...] Lara MD CHEMISTRY ORDERABLES Performing Organization Address [facility] Phone Number [facility] [place] [address] * Prothrombin Time (03/30/2023 10:23 AM EST) PT 12.0 9.4 - 12.5 sec [facility] INR 1.1 [facility] [...] MD HEMATOLOGY ORDERABLE S Performing Organization Address [facility] Number [facility] [place] [address] * AFP tumor marker (03/30/2023 10:23 AM EST) AFP 2.8 <=8.3 ng/mL [facility] Comment: This result was generated using a Mendoza Jonathan immunoassay. ??Results obtained from other methods or manufacturers cannot be used interchangeably with this method. Blood 03/30/2023 10:2 3 AM EST 03/30/2023 10:30 AM EST Narrative Resulting Agency Comment Spec In Lab Irene Lara MD CHEMISTRY ORDERABLES [facility] [place] [address] documented in this encounter Visit Diagnoses Diagnosis Primary biliary cholangitis Hepatic cirrhosis, unspecified hepatic cirrhosis type, unspecified whether ascites present documented in this encounter Care Teams Degreaser Operator Relationship Specialty Start Date End Date Nicolasa Prince APRN [address] [place] [address] PCP - General Family Medicine 01/08/21 documented as of this encounter
--- OUTSIDE RECORDS SUMMARY | 2023-11-24 01:19 | XMS_ITS | Encounter Summary ---
Author Organization [facility] [place] [address] Care Team Providers Care Open Hearth Worker Name Role Phone Nicolasa Prince APRN Primary Care Provider +1- [phone] Encounter Details Date Type Department Care Team (Late st Contact Info) Description 03/10/2023 Telephone [place] [address] Irene Lara MD [facility] [place] [address] Social History Tobacco Use Types Packs/Day Years [...] Lara MD Section of Gastroenterology & Hepatology [address] [place] [address] documented in this encounter Plan of Treatment Not on file documented as of this encounter Visit Diagnoses Not on filedocumented in this encounter Care Teams Open Hearth Worker Relationship Specialty Start Date End Date Nicolasa Prince APRN [address] [place] [address] PCP - General Family Medicine 01/08/21 documented as of this encounter
--- OUTSIDE RECORDS SUMMARY | 2023-11-24 01:19 | XMS_ITS | Encounter Summary ---
Author Organization [facility] [place] [address] Care Team Providers Care Resident Athletic Trainer Name Role Phone Nicolasa Prince APRN Primary Care Provider +1- [phone] Encounter Details Date Type Department Care Team (Late st Contact Info) Description 11/30/2022 External Results [place] [address] Irene Lara MD [facility] [place] [address] Social History Tobacco Use Types Packs/Day Years [...] on filedocumented in this encounter Care Teams Resident Athletic Trainer Relationship Specialty Start Date End Date Nicolasa Prince, YULIA [address] [place] [address] PCP - General Family Medicine 01/08/21 documented as of this encounter
--- OUTSIDE RECORDS SUMMARY | 2023-11-24 01:19 | XMS_ITS | Encounter Summary ---
Author Organization [facility] [place] [address] Care Team Providers Care Business Development Officer Name Role Phone Nicolasa Prince APRN Primary Care Provider +1- [phone] Reason for Visit * Reason Comments Medication Refill Encounter Details Date Type Department Care Team (Late st Contact Info) Description 10/15/2022 Refill [place] [address] Irene Lara MD [facility] [place] [address] Autoimmune hepatitis Social History Tobacco Use Types [...] hepatitis documented in this encounter Care Teams Business Development Officer Relationship Specialty Start Date End Date Nicolasa Prince APRN [address] [place] [address] PCP - General Family Medicine 01/08/21 documented as of this encounter
--- OUTSIDE RECORDS SUMMARY | 2023-11-24 01:19 | XMS_ITS | Encounter Summary ---
Author Organization [facility] Address [facility] [place] [address] Care Team Providers Care Potato Seed Cutter Name Role Phone Nicolasa Prince APRN Primary Care Provider +1- [phone] Encounter Details Date Type Department Care Team (Late st Contact Info) Description 12/02/2022 [place] [address] Irene Lara MD [facility] [place] [address] Social History Tobacco Use Types Packs/Day Years [...] Lara MD Section of Gastroenterology & Hepatology [address] [place] [address] documented in this encounter Plan of Treatment Not on file documented as of this encounter Visit Diagnoses Not on filedocumented in this encounter Care Teams Potato Seed Cutter Relationship Specialty Start Date End Date Nicolasa Prince APRN [address] [place] [address] PCP - General Family Medicine 01/08/21 documented as of this encounter
--- OUTSIDE RECORDS SUMMARY | 2023-11-24 01:19 | XMS_ITS | Encounter Summary ---
Author Organization [facility] Address [facility] [place] [address] Care Team Providers Care Waterworks Pump Station Operator Name Role Phone Nicolasa Prince YULIA Primary Care Provider +1- [phone] Encounter Details Date Type Department Care Team (Latest Contact Info) Description 09/28/2023 10:06 AM EDT - 09/28/2023 11:59 PM EDT Hospital [place] [address] Carolynn Lamar MD [facility] [place] [address] Biliary cirrhosis Discharge Disposition: Home Social History [...] Protocol (09/28/2023 10:54 AM EDT) WORKSTATION ID [id number] RAD Anatomical Region Laterality Modality Abdomen Ultrasound [...] who have questions, please contact the health managed care specialist that requested your imaging first. ?Fiordaliza Fabian Hai Outside Sales Manager Electronically Signed Final Report ?? 09/28/2023 11:41 am Narrative 09/28/2023 11:42 AM EDT Abdominal ? (Signed Final 09/28/2023 11:41 am) PATIENT INFO: ID #: ? [id number] ?: ??[birth year] (72 yrs)(F) Name: ? PREMA LEATHA ?Visit Date: 09/28/2023 10:34 am PERFORMED BY: Attending: ?Caren LUTHER, Fiordaliza Prado Resident: ? Madhavi Thomas MD Performed By: ? Joanna Bronson RDMS Referred By: ?[facility] Location: ? [place] SERVICE(S) PROVIDED: [facility] - Hepatology Protocol - Abdominal ?23884 Limited Survey Single Organ or Quadrant - [id number] INDICATIONS: cirrhosis, screen for hcc COMPARISON: US [...] 09/28/2023 11:41 am) PATIENT INFO: ID #: [id number] : [birth year] (72 yrs)(F) Name: PREMA SALGADO Visit Date: 09/28/2023 10:34 am PERFORMED BY: Attending: Fiordaliza Fabian MD Resident: Madhavi Thomas MD Performed By: Joanna Bronson RDMS Referred By: CAROLYNN LAMAR Location: [place] SERVICE(S) PROVIDED: [facility] - Hepatology Protocol - Abdominal 79649 Limited Survey Single Organ or Quadrant - [id number] INDICATIONS: cirrhosis, screen for hcc COMPARISON: US [...] who have questions, please contact the health managed care specialist that requested your imaging first. Fiordaliza Fabian, [facility] Outside Sales Manager Electronically Signed Final Report 09/28/2023 11:41 am Carolynn Lamar MD IMG GEN ORDERABLE S documented in this encounter Visit Diagnoses Diagnosis Biliary cirrhosis documented in this encounter Care Teams Waterworks Pump Station Operator Relationship Specialty Start Date End Date Nicolasa Prince, PARTS COUNTERPERSON [address] [place] [address] PCP - General Family Medicine 01/08/21 documented as of this encounter
--- OUTSIDE RECORDS SUMMARY | 2023-11-24 01:19 | XMS_ITS | Encounter Summary ---
Author Organization [facility] [place] [address] Care Team Providers Care Laundry Sorter Name Role Phone Nicolasa Prince APRN Primary Care Provider +1- [phone] Reason for Visit * Reason Onset Date Comments Appointment 06/24/2023 US/Abdomen Encounter Details Date Type Department Care Team (Late st Contact Info) Description 06/24/2023 [place] [address] Gisele Jim RN Appointment (US/Abdomen) [...] on filedocumented in this encounter Care Teams Laundry Sorter Relationship Specialty Start Date End Date Nicolasa Prince APRN [address] [address] PCP - General Family Medicine 01/08/21 documented as of this encounter
--- OUTSIDE RECORDS SUMMARY | 2023-11-24 01:19 | XMS_ITS | Encounter Summary ---
Author Organization [facility] [place] [address] Care Team Providers Care Special Education Classroom Aide Name Role Phone Nicolasa Prince APRN Primary Care Provider +1- [phone] Reason for Visit * Auth/Cert (Routine) Specialty Diagnoses / Procedures Referred By Minh t Referred To Contact Diagnoses Encounter for screening for malignant neoplasm of colon 6 month Procedures PRO COLONOSCOPY, DIAGNOSTIC PRO COLONOSCOPY, BIOPSY PRO COLONOSCOPY, REMV LESN, SNARE PRO ANES, LWR INTESTINE, SCREENING COLONOSCOPY COLONOSCOPY,SCREENING (WRVU 3.26) Elin Carlson MD [facility] [place] [address] [facility] Referral ID Status Reason Start Date Expiration Date Visits Re quested Visits Authorized [id number] 1 1 Encounter Details Date Type Department Care Team (Latest Contact Info) Description 02/19/2023 12:41 PM EDT - 02/19/2023 3:29 PM EDT Hospital Encounter Gastroenterology at [facility] [place] [address] Elin Carlson MD [facility] [place] [address] Discharge Disposition: Home Social History Tobacco Use [...] occurs, please contact your Doctor. Please call [phone] before 8pm Mon-Fri with problems, questions or concerns. If you call after 8pm or on weekends, call the Hospital at [phone] and ask to speak to the State Editor orthopedic shoes salesperson and the tractor operator helper will contact that person for you. When should you call for help? Call [phone] anytime you think you may need emergency [...] After Visit Summary and more online at [email or web address] If you would like to provide [...] cost to you. Content Version: 12.2 ?? [id number] [employer]. Care instructions adapted under license by [facility]. If you have questions about a medical condition or this instruction, always ask your healthcare professional. [employer] disclaims any warranty or liability for your [...] List Diagnosis Code Atherosclerotic heart disease of [place] coronary artery without angina pectoris I25.10 EXAM: [...] PATHOLOGY Routine 02/19/2023 2:32 PM EDT Colonoscopy, RemGauri Leyva ([id number]) 02/19/2023 1:54 PM EDT 6 month COLONOSCOPY Routine 02/19/2023 1:47 PM EDT documented in this encounter Results * Surgical Pathology Report (02/19/2023 2:32 PM EDT) FINAL DIAGNOSIS (AP) [id number] ? Location: 4T; EA12; A The signing pathologist has (i) examined the relevant preparation(s) for the specimen(s) and (ii) rendered or confirmed the diagnosis(es). . ?Surgical Pathology DIAGNOSIS A - Ascending colon polyps 2mm, 1mm, resection: - ??Fragments of tubular adenoma. B - Rectal polyp 1mm, resection: - ??Hyperplastic polyp. CR-PX Electronically signed by: ?Per LUTHER, Arpit Verified: ??03/01/2023 16:31 ??Pathologist Performed at: ??-[facility] Dept. of Pathology, [place] [address] Licensed Occupational Therapy Assistant: Stefan Min MD, FCAP, ??CLIA Certificate: [id number] SPECIMEN(S) SUBMITTED A - ascending colon polyps [...] toto ??in 1 cassette labeled B1. ??sdy 03/01/2023 4:31 PM EDT [facility] 02/19/2023 2:32 PM EDT Elin Carlson MD PATHOLOGY/CYTOLOGY O RDERABLES [facility] [place] [address] * Specimen to Pathology (02/19/2023 2:32 PM EDT) AP Specimen 02/19/2023 2:32 PM EDT 02/19/2023 2:32 PM EDT Narrative [facility] - 02/19/2023 2:32 PM EDT Specimen requisition ordered. ??Separate Pathology report to follow Elin Carlson MD PATHOLOGY/CYTOLOGY O MEENU Performing Organization Address [facility] [place] [address] * Specimen to Pathology (02/19/2023 2:32 PM EDT) AP Specimen 02/19/2023 2:32 PM EDT 02/19/2023 2:32 PM EDT Narrative [facility] - 02/19/2023 2:32 PM EDT Specimen requisition ordered. ??Separate Pathology report to follow Elin Carlson MD PATHOLOGY/CYTOLOGY Asad CORRIGAN Performing Organization Address [facility] [place] [address] * COLONOSCOPY (02/19/2023 1:47 PM EDT) COLONOSCOPY [facility] Endoscopy Procedure Date: 02/19/2023 1:47 PM ? Patient Name: Cookie Salgado ? Date of : 1950 ? Age: 72 ? Order #: [id number] ? Instrument Name: [id number] ? Procedure: ? Colonoscopy Indications: ? Follow-up [...] ? was evaluated using the BBPS ? ([place] Bowel Preparation Scale) ? with scores of: [...] Procedure Code(s): ? --- Professional --- ? 37794, Colonoscopy, flexible; with ? removal of tumor(s), polyp(s), or ? other lesion(s) by snare technique CPT copyright 2021 [employer]. All rights reserved. The codes documented in this report are preliminary and upon savings counselor review may be revised to meet current compliance requirements. Attending Participation: ? I personally performed the entire procedure. ? Elin Carlson MD _ Elin Carlson MD 02/19/2023 2:36:53 PM This report has been signed electronically. Number of Addenda: 0 Note Initiated On: 02/19/2023 1:47 PM PROVATION 02/19/2023 1:47 PM EDT Nicolasa Prince PRICING CLERK GENERAL SURGICAL O RDERABLES Performing Organization Address City/State/[facility] Co de Phone Number PROVATION documented in this encounter Visit Diagnoses Not on filedocumented in this encounter Active and Recently Administered Medications Times are shown in EDT. PRN Medication Order 02/17/2023 02/18/2023 02/19/2023 fentaNYL (pf) (50 mcg/mL) multi-dose injection (CANCELED) PRN, Starting on 02/19/23 at 1358, Until Wed02/19/23 at 1729, Intra-Operative [...] RN) documented in this encounter Care Teams Special Education Classroom Aide Relationship Specialty Start Date End Date Nicolasa Prince, YULIA [address] [place] [address] PCP - General Family Medicine 01/08/21 documented as of this encounter
--- OUTSIDE RECORDS SUMMARY | 2023-11-24 01:19 | XMS_ITS | Encounter Summary ---
Author Organization [facility] [place] [address] Care Team Providers Care Nutrition Helper Name Role Phone Nicolasa Prince APRN Primary Care Provider +1- [phone] Reason for Visit * Auth/Cert (Routine) Specialty Diagnoses / Procedures Referred By Minh t Referred To Contact Diagnoses Encounter for screening for malignant neoplasm of colon 6 month Procedures PRO COLONOSCOPY, DIAGNOSTIC PRO COLONOSCOPY, BIOPSY PRO COLONOSCOPY, REMV LESN, SNARE PRO ANES, LWR INTESTINE, SCREENING COLONOSCOPY COLONOSCOPY,SCREENING (WRVU 3.26) Elin Carlson MD [place] [address] [facility] Referral ID Status Reason Start Date Expiration Date Visits Re quested Visits Authorized [id number] 1 1 Encounter Details Date Type Department Care Team (Late st Contact Info) Description 02/19/2023 1:45 PM EDT - 02/19/2023 2:30 PM EDT Surgery Gastroenterology at [facility] [place] [address] Elin Carlson MD [place] [address] COLONOSCOPY, POLYPECTOMY, REMOVAL LESION BY SNARE (WRVU [...] occurs, please contact your Doctor. Please call [phone] before 8pm Mon-Fri with problems, questions or concerns. If you call after 8pm or on weekends, call the Hospital at [phone] and ask to speak to the Guillotine Trimmer director of food and nutrition and the head sulfide operator will contact that person for you. When should you call for help? Call [phone] anytime you think you may need emergency [...] After Visit Summary and more online at [email or web address] If you would like to provide feedback [...] cost to you. Content Version: 12.2 ?? 4313-9550 [employer]. Care instructions adapted under license by [facility]. If you have questions about a medical condition or this instruction, always ask your healthcare professional. [employer] disclaims any warranty or liability for your [...] List Diagnosis Code Atherosclerotic heart disease of [place] coronary artery without angina pectoris I25.10 EXAM: [...] 2:32 PM EDT Colonoscopy, Remmoses Ortiz, Snare ([id number]) 02/19/2023 1:54 PM EDT 6 month COLONOSCOPY Routine 02/19/2023 1:47 PM EDT documented in this encounter Results * Surgical Pathology Report (02/19/2023 2:32 PM EDT) FINAL DIAGNOSIS (AP) [id number] ? Location: 4T; EA12; A The signing pathologist has (i) examined the relevant preparation(s) for the specimen(s) and (ii) rendered or confirmed the diagnosis(es). . ?Surgical Pathology DIAGNOSIS A - Ascending colon polyps 2mm, 1mm, resection: - ??Fragments of tubular adenoma. B - Rectal polyp 1mm, resection: - ??Hyperplastic polyp. CR-PX Electronically signed by: ?Per LUTHER, Arpit Verified: ??03/01/2023 16:31 ??Pathologist Performed at: ??-[facility] Dept. of Pathology, [place] [address] Bologna Lacer: Stefan Min MD, FCAP, ??CLIA Certificate: [id number] SPECIMEN(S) SUBMITTED A - ascending colon polyps [...] labeled B1. ??sdy 03/01/2023 4:[address] [facility] 02/19/2023 2:32 PM EDT Elin Carlson MD PATHOLOGY/CYTOLOGY O MEENU [facility] [place] [address] * Specimen to Pathology (02/19/2023 2:32 PM EDT) AP Specimen 02/19/2023 2:32 PM EDT 02/19/2023 2:[address] [facility] - 02/19/2023 2:32 PM EDT Specimen requisition ordered. ??Separate Pathology report to follow Elin Carlson MD PATHOLOGY/CYTOLOGY O MEENU Performing Organization Address [facility] [place] [address] * Specimen to Pathology (02/19/2023 2:32 PM EDT) AP Specimen 02/19/2023 2:32 PM EDT 02/19/2023 2:[address] [facility] - 02/19/2023 2:32 PM EDT Specimen requisition ordered. ??Separate Pathology report to follow Elin Carlson MD PATHOLOGY/CYTOLOGY Asad CORRIGAN Performing Organization Address [facility] [place] [address] * COLONOSCOPY (02/19/2023 1:47 PM EDT) COLONOSCOPY [facility] Endoscopy Procedure Date: 02/19/2023 1:47 PM ? Patient Name: Cookie Salgado ? Date of : 1950 ? Age: 72 ? Order #: [id number] ? Instrument Name: [id number] ? Procedure: ? Colonoscopy Indications: ? Follow-up [...] ? was evaluated using the BBPS ? ([place] Bowel Preparation Scale) ? with scores of: [...] Procedure Code(s): ? --- Professional --- ? 71565, Colonoscopy, flexible; with ? removal of tumor(s), polyp(s), or ? other lesion(s) by snare technique CPT copyright 2021 [employer]. All rights reserved. The codes documented in this report are preliminary and upon remote coders review may be revised to meet current compliance requirements. Attending Participation: ? I personally performed the entire procedure. ? Elin Carlson MD _ Elin Carlson MD 02/19/2023 2:36:53 PM This report has been signed electronically. Number of Addenda: 0 Note Initiated On: 02/19/2023 1:47 PM PROVATION 02/19/2023 1:47 PM EDT Nicolasa Prince TELEVISION PRODUCER GENERAL SURG[facility] Performing Organization Address City/State/[facility] Co de Phone Number PROVATION documented in [...] er: Damon Archer RN)1401 (Given - Provider: Dmaon Archer RN)1404 (Given - Provider: Damon Archer RN)1409 (Given - Provider: Damon Archer RN) documented in this encounter Care Teams Nutrition Helper Relationship Specialty Start Date End Date Nicolasa Prince, TELEVISION PRODUCER [address] [place] [address] PCP - General Family Medicine 01/08/21 documented as of this encounter
--- OUTSIDE RECORDS SUMMARY | 2023-11-24 01:19 | XMS_ITS | Encounter Summary ---
Author Organization [facility] [place] [address] Care Team Providers Care Procedures Rn Name Role Phone Nicolasa Prince APRN Primary Care Provider +1- [phone] Encounter Details Date Type Department Care Team (Late st Contact Info) Description 12/25/2022 External Results [place] [address] Irene Lara MD [facility] [place] [address] Social History Tobacco Use Types Packs/Day Years [...] on filedocumented in this encounter Care Teams Procedures Rn Relationship Specialty Start Date End Date Nicolasa Prince, YULIA [address] [place] [address] PCP - General Family Medicine 01/08/21 documented as of this encounter
--- OUTSIDE RECORDS SUMMARY | 2023-11-24 01:19 | XMS_ITS | Encounter Summary ---
Author Organization [facility] [place] [address] Care Team Providers Care Jet Inspector Name Role Phone Nicolasa Prince APRN Primary Care Provider +1- [phone] Reason for Visit * Reason Comments Medication Refill Encounter Details Date Type Department Care Team (Late st Contact Info) Description 08/23/2023 Refill [place] [address] Irene Lara MD [facility] [place] [address] Autoimmune hepatitis Social History Tobacco Use Types [...] hepatitis documented in this encounter Care Teams Jet Inspector Relationship Specialty Start Date End Date Nicolasa Prince APRN [address] [place] [address] PCP - General Family Medicine 01/08/21 documented as of this encounter
--- OUTSIDE RECORDS SUMMARY | 2023-11-24 01:19 | XMS_ITS | Encounter Summary ---
Author Organization [facility] [place] [address] Care Team Providers Care Telegraphic Typewriter Installer Name Role Phone Nicolasa Prince APRN Primary Care Provider +1- [phone] Encounter Details Date Type Department Care Team [...] on filedocumented in this encounter Care Teams Telegraphic Typewriter Installer Relationship Specialty Start Date End Date Nicolasa Prince APRN [address] [place] [address] PCP - General Family Medicine 01/08/21 documented as of this encounter
--- OUTSIDE RECORDS SUMMARY | 2023-11-24 01:19 | XMS_ITS | Encounter Summary ---
Author Organization [facility] Address [facility] [place] [address] Care Team Providers Care Perforator Typist Name Role Phone Nicolasa Prince APRN Primary Care Provider +1- [phone] Encounter Details Date Type Department Care Team (Latest Contact Info) Description 08/17/2022 10:14 AM EDT - 08/17/2022 11:59 PM EDT Hospital [place] [address] Irene Lamar MD [facility] [address] Autoimmune hepatitis; Primary biliary cholangitis; Hepatic cirrhosis, [...] who have questions, please contact the health district manager primary care sales that requested your imaging first. ?Kashmir Lindsay, Staff Physician Electronically Signed Final Report ?? 08/17/2022 02:12 pm Narrative 08/17/2022 2:12 PM EDT Abdominal ? (Signed Final 08/17/2022 02:12 pm) PATIENT INFO: ID #: ? [id number] ?: ??[birth year] (71 yrs)(F) Name: ? PREMA SALGADO ?Visit Date: 08/17/2022 10:53 am PERFORMED BY: Attending: ?Neftali LUTHER, [place] Resident: ? Milagros LUTHER, James Curtis Performed By: ? Angelina Crystal RDMS Referred By: ?IRENE LAMAR Location: ? [place] SERVICE[facility]S) [facility]: [facility] - Hepatology Protocol - Abdominal ?13130 Limited Survey Single Organ or Quadrant - [id number] INDICATIONS: cirrhosis, screen for hcc; assess for [...] 08/17/2022 02:12 pm) PATIENT INFO: ID #: [id number] : [birth year] (71 yrs)(F) Name: PREMA SALGADO Visit Date: 08/17/2022 10:53 am PERFORMED BY: Attending: Kashmir Lindsay MD Resident: James Linares MD Performed By: Angelina Crystal RDMS Referred By: IRENE LAMAR Location: [place] SERVICE(S) PROVIDED: [facility] - Hepatology Protocol - Abdominal 08533 Limited Survey Single Organ or Quadrant - [id number] INDICATIONS: cirrhosis, screen for hcc; assess for [...] who have questions, please contact the health district manager primary care sales that requested your imaging first. Kashmir Lindsay, Staff Physician Electronically Signed Final Report 08/17/2022 02:12 pm Irene Lamar MD IMG US GEN ORDERABLE S documented in this encounter Visit Diagnoses Diagnosis Autoimmune hepatitis Primary biliary cholangitis Hepatic cirrhosis, unspecified hepatic cirrhosis type, unspecified whether ascites present documented in this encounter Care Teams Perforator Typist Relationship Specialty Start Date End Date Nicolasa Prince APRN [address] [place] [address] PCP - General Family Medicine 01/08/21 documented as of this encounter
--- OUTSIDE RECORDS SUMMARY | 2023-11-24 01:19 | XMS_ITS | Encounter Summary ---
Author Organization [facility] Address [facility] [place] [address] Care Team Providers Care Commercial Litigation Paralegal Name Role Phone Nicolasa Prince YULIA Primary Care Provider +1- [phone] Encounter Details Date Type Department Care Team (Latest Contact Info) Description 03/30/2023 9:10 AM EST - 03/30/2023 11:59 PM [facility] Hospital [place] [phone] Carolynn Lamar MD [facility] [place] [address] Primary biliary cholangitis; Hepatic cirrhosis, unspecified hepatic [...] who have questions, please contact the health medicare nurse that requested your imaging first. ? Ke Jay, Staff Physician Electronically Signed Final Report ?? 03/30/2023 12:27 pm Narrative 03/30/2023 12:28 PM EST Abdominal ? (Signed Final 03/30/2023 12:27 pm) PATIENT INFO: ID #: ? [id number] ?: ??[birth year] (72 yrs)(F) Name: ? PREMA SALGADO ?Visit Date: 03/30/2023 09:52 am PERFORMED BY: Attending: ?Pierre LUTHER, Ke Conklin Resident: ? Joseph LUTHER, Ada Barrow Performed By: ? Elba Milian RDMS Referred By: ?CAROLYNN LAMAR Location: ? [place] SERVICE(S) PROVIDED: [facility] - Hepatology Protocol - Abdominal ?12661 Limited Survey Single Organ or Quadrant - [id number] INDICATIONS: cirrhosis, screen for hcc COMPARISON: US: [...] 03/30/2023 12:27 pm) PATIENT INFO: ID #: [id number] : [birth year] (72 yrs)(F) Name: PREMA SALGADO Visit Date: 03/30/2023 09:52 am PERFORMED BY: Attending: Ke Jay MD Resident: Ada Ruiz MD Performed By: Elba Milian RDMS Referred By: CAROLYNN LAMAR Location: [place] [facility] - Hepat[facility] Protocol - Abdominal 09027 Limited Survey Single Organ or Quadrant - [id number] INDICATIONS: cirrhosis, screen for hcc COMPARISON: US: [...] who have questions, please contact the health medicare nurse that requested your imaging first. Ke Jay, Staff Physician Electronically Signed Final Report 03/30/2023 12:27 pm Carolynn Lamar MD IMG GEN ORDERABLE S documented in this encounter Visit Diagnoses Diagnosis Primary biliary cholangitis Hepatic cirrhosis, unspecified hepatic cirrhosis type, unspecified whether ascites present documented in this encounter Care Teams Commercial Litigation Paralegal Relationship Specialty Start Date End Date Nicolasa Prince APRN [address] [place] [address] PCP - General Family Medicine 01/08/21 documented as of this encounter
--- OUTSIDE RECORDS SUMMARY | 2023-11-24 01:19 | XMS_ITS | Encounter Summary ---
Author Organization [facility] [place] [address] Care Team Providers Care Production Broacher Name Role Phone Nicolasa Prince APRN Primary Care Provider +1- [phone] Encounter Details Date Type Department Care Team [...] on filedocumented in this encounter Care Teams Production Broacher Relationship Specialty Start Date End Date Nicolasa Prince APRN [address] [place] [address] PCP - General Family Medicine 01/08/21 documented as of this encounter
--- OUTSIDE RECORDS SUMMARY | 2023-11-24 01:19 | XMS_ITS | Encounter Summary ---
Author Organization [facility] [place] [address] Care Team Providers Care Bilingual Social Worker Name Role Phone Nicolasa Prince APRN Primary Care Provider +1- [phone] Encounter Details Date Type Department Care Team [...] filedocumented in this encounter Care Teams Bilingual Social Worker Relationship Specialty Start Date End Date Nicolasa Prince APRN [address] [place] [address] PCP - General Family Medicine 01/08/21 documented as of this encounter
--- OUTSIDE RECORDS SUMMARY | 2023-11-24 01:19 | XMS_ITS | Encounter Summary ---
Author Organization [facility] [place] [address] Care Team Providers Care Fence Post Cutter Name Role Phone Nicolasa Prince APRN Primary Care Provider +1- [phone] Reason for Visit * Reason Comments Medication Refill Encounter Details Date Type Department Care Team (Late st Contact Info) Description 03/14/2023 [place] [address] [facility] [place] [address] Autoimmune hepatitis Social History Tobacco Use Types [...] hepatitis documented in this encounter Care Teams Fence Post Cutter Relationship Specialty Start Date End Date Nicolasa Prince APRN [address] [place] [address] PCP - General Family Medicine 01/08/21 documented as of this encounter
--- OUTSIDE RECORDS SUMMARY | 2023-11-24 01:19 | XMS_ITS | Encounter Summary ---
Author Organization [facility] [place] [address] Care Team Providers Care Wire Frame Lampshade Maker Name Role Phone Nicolasa Prince APRN Primary Care Provider +1- [phone] Encounter Details Date Type Department Care Team (Late st Contact Info) Description 03/30/2023 11:30 AM EST Office [place] [address] Carolynn Lamar MD [facility] [place] [address] Biliary cirrhosis Social History Tobacco Use Types [...] PBC/AIH. Her original diagnosis was made in [place] and she was managed by a center aisle cashier at [facility]. Her records were extensively reviewed in [...] normal since approximately 2016. She moved to [place] in 2019.. Living with her two brothers. [...] Vitals: 03/30/23 1122 BP: 129/62 BP Location ([facility]): Right arm Patient Position: Sitting BP Cuff [...] Lamar MD Section of Gastroenterology & Hepatology [address] [place], [place] [id number] Cc: Nicolasa Prince APRN SURGICAL PATHOLOGY REPORT Patient: PREMA SALGADO MR #: [id number] Submitted by: Elie Moreno MD FINAL DIAGNOSIS [...] be definitively distinguished from minto bile ducts. There is patchy periportal hepatocellular [...] had a prior liver biopsy reviewed at [facility] (see accession number [id number]), although the slides are not available for direct comparison at this time. However, based on the microscopic description, it appears that fibrosis may have progressed. documented in this encounter Plan of Treatment Not on file documented as of this encounter Results * US Abdomen Limited Hepatology Protocol (09/28/2023 10:54 AM EDT) WORKSTATION ID [id number] DH RAD Anatomical Region Laterality Modality Abdomen [...] AM Electronically signed by: Fiordaliza Fabian MD, [facility] ([phone]), at 09/28/2023 11:34 AM Thank you for letting us participate in the care of this patient. If you are a health care provider and have any questions regarding this report, please contact the number above. For patients who have questions, please contact the health child care development specialist that requested your imaging first. ?Fiordaliza Faiban, [facility] Flight Technician Electronically Signed Final Report ?? 09/28/2023 11:41 am Narrative 09/28/2023 11:42 AM EDT Abdominal ? (Signed Final 09/28/2023 11:41 am) PATIENT INFO: ID #: ? [id number] ?: ??[birth year] (72 yrs)(F) Name: ? PREMA SALGADO ?Visit Date: 09/28/2023 10:34 am PERFORMED BY: Attending: ?Caren LUTHER, Fiordaliza Prado Resident: ? Madhavi Thomas MD Performed By: ? Joanna Bronson RDMS Referred By: ?CAROLYNN LAMAR Location: ? [place] SERVICE(S) PROVIDED: UABDLIMHEP - Hepatology Protocol - Abdominal ?68960 Limited Survey Single Organ or Quadrant - [id number] INDICATIONS: cirrhosis, screen for hcc COMPARISON: US [...] 09/28/2023 11:41 am) PATIENT INFO: ID #: [id number] : 54 (72 yrs)(F) Name: PREMA SALGADO Visit Date: 09/28/2023 10:34 am PERFORMED BY: Attending: Fiordaliza Fabian MD Resident: Madhavi Thomas MD Performed By: Joanna Bronson RDMS Referred By: CAROLYNN LAMAR Location: [place] SERVICE(S) PROVIDED: UABDLIMHE - Hepatology Protocol - Abdominal 36325 Limited Survey Single Organ or Quadrant - [id number] INDICATIONS: cirrhosis, screen for hcc COMPARISON: US abdomen limited hepatology protocol 03/2023 ------ LIVER: ------ Right Lobe Length: 20.5 cm Echogenicity/Echotexture: Coarse heterogeneous echogenic parenchyma with capsular nodularity Portal Veins: Patent main PV where interrogated Hepatic Veins: Patent where interrogated Comment: No focal lesion seen. GALLBLADDER: Cholelithiasis: No stones visualized Wall Thickness: 1.7 mm, normal Focal Tenderness: Negative sonographic Flroes's sign Comment: Distended, measuring approximately 10.7 cm [...] AM Electronically signed by: Fiordaliza Fabian MD, [facility] ([phone]), at 09/28/2023 11:34 AM Thank you for letting us participate in the care of this patient. If you are a health care provider and have any questions regarding this report, please contact the number above. For patients who have questions, please contact the health child care development specialist that requested your imaging first. Fiordaliza Fabian E Flight Technician Electronically Signed Final Report 09/28/2023 11:41 am Carolynn Lamar MD IMG US GEN ORDERABLE S documented in this encounter Visit Diagnoses Diagnosis Biliary cirrhosis Biliary cirrhosis documented in this encounter Care Teams Wire Frame Lampshade Maker Relationship Specialty Start Date End Date Nicolasa Prince APRN [address] [address] PCP - General Family Medicine 01/08/21 documented as of this encounter
--- OUTSIDE RECORDS SUMMARY | 2023-11-24 01:19 | XMS_ITS | Encounter Summary ---
Author Organization [facility] Address [facility] [place] [address] Care Team Providers Care Telephonic Rn Name Role Phone Nicolasa Prince APRN Primary Care Provider +1- [phone] Encounter Details Date Type Department Care Team (Late st Contact Info) Description 11/02/2022 External Results Gastroenterology at [facility] [place] [address] Irene Lara MD [facility] [place] [address] Social History Tobacco Use Types Packs/Day Years [...] on filedocumented in this encounter Care Teams Telephonic Rn Relationship Specialty Start Date End Date Nicolasa Prince APRN [address] [place] [address] PCP - General Family Medicine 01/08/21 documented as of this encounter
--- OUTSIDE RECORDS SUMMARY | 2023-11-24 01:20 | XMS_ITS | Encounter Summary ---
[place] [address] Care Team Providers Care Oil Derrick Operator Name Role Phone Suresh Nicolasa Giles APRN Primary Care Provider +1- [phone] Reason for Referral * Diagnostic Test (Routine) - Closed Specialty Diagnoses / Procedures Referred By Contac t Referred To Contact Radiology Diagnoses Primary biliary cholangitis Procedures MRI Abdomen wwo Contrast (Generic) Harmony Andrade POLYSTYRENE MOLDING MACHINE TENDER [facility] [place] [address] [place] [address] Referral ID Status Reason Start Date Expiration Date V isits Requested Visits Authorized [id number] Closed Specialty Service Requested 02/19/2021 08/20/2022 1 1 Reason for Visit * Diagnostic Test (Routine) - Closed Specialty Diagnoses / Procedures Referred By Contac t Referred To Contact Radiology Diagnoses Primary biliary cholangitis Procedures MRI Abdomen wwo Contrast (Generic) Harmony Andrade [facility] [place] [address] [place] [address] Referral ID Status Reason Start Date Expiration Date V isits Requested Visits Authorized [id number] Closed Specialty Service Requested 02/19/2021 08/20/2022 1 1 Encounter Details Date Type Department Care Team (Latest Contact Info) Description 07/22/2021 9:43 AM EDT - 07/22/2021 11:59 PM EDT [place] [address] Harmony Andrade APRN [facility] [place]STR[place] [address] Primary biliary cholangitis Discharge Disposition: Home Social [...] who have questions please contact the health health care / medical job titles that requested your imaging first. ? Electronically signed by: Ramon Verduzco MD, [facility] ([phone]), at 07/22/2021 11:29 AM Narrative 07/22/2021 11:29 [...] patients who have questions please contactthe health health care / medical job titles that requested your imaging first. Electronically signed by: Ramon Verduzco MD, [facility]([phone]), at 07/22/2021 11:29 AM Harmony Andrade APRN [facility] MRI ORDERABLES documented in this encounter Visit [...] mLs documented in this encounter Care Teams Oil Derrick Operator Relationship Specialty Start Date End Date Nicolasa Prince APRN [address] [place] [address] PCP - General Family Medicine 01/08/21 documented as of this encounter
--- OUTSIDE RECORDS SUMMARY | 2023-11-24 01:20 | XMS_ITS | Encounter Summary ---
Author Organization [facility] Address [facility] [place] [address] Care Team Providers Care Land Resource Specialist Name Role Phone Nicolasa Prince YULIA Primary Care Provider +1- [phone] Encounter Details Date Type Department Care Team (Latest Contact Info) Description 02/10/2022 9:51 AM EDT - 02/10/2022 11:59 PM EDT Hospital [place] [address] Carolynn Lamar MD [facility] [place] [address] Primary biliary cholangitis; Hepatic cirrhosis, unspecified hepatic [...] 3. ??No cholelithiasis or biliary ductal dilatation. Thank you for letting us participate in the care of this patient. If you are a health care provider and have any questions regarding this report, please contact the number above. For patients who have questions, please contact the health healthcare economics consultant that requested your imaging first. ? Fiordaliza Fabian, Staff Physician Electronically Signed Final Report ?? 02/10/2022 10:39 am Narrative 02/10/2022 10:39 AM EDT Abdominal ? (Signed Final 02/10/2022 10:39 am) PATIENT INFO: ID #: ? [id number] ?: ??[birth year] (71 yrs)(F) Name: ? PREMA SALGADO ?Visit Date: 02/10/2022 10:18 am PERFORMED BY: Performed By: ? Sarahi Flores RDMS Attending: ?Caren LUTHER, Fiordaliza Prado Referred By: ?CAROLYNN LAMAR Location: ? [place] SERVICE(S) PROVIDED: UABDLIMHEP - Hepatology Protocol - Abdominal ?50967 Limited Survey Single Organ or Quadrant - [id number] INDICATIONS: Cirrhosis, screen for HCC COMPARISON: MRI [...] 02/10/2022 10:39 am) PATIENT INFO: ID #: [id number] : 54 (71 yrs)(F) Name: PREMA SALGADO Visit Date: 02/10/2022 10:18 am PERFORMED BY: Performed By: Sarahi Flores RDMS Attending: Fiordaliza Fabian MD Referred By: CAROLYNN LAMAR Location: [place] SERVICE[facility]S) [facility] Hep[facility] Protocol - Abdominal 10162 Limited Survey Single Organ or Quadrant - [id number] INDICATIONS: Cirrhosis, screen for HCC COMPARISON: MRI [...] have questions, please contact the health healthcare economics consultant that requested your imaging first. Fiordaliza Fabian, Staff Physician Electronically Signed Final Report 02/10/2022 10:39 am Carolynn Lamar MD IMG US GEN ORDERABLE S documented in this encounter Visit Diagnoses Diagnosis Primary biliary cholangitis Hepatic cirrhosis, unspecified hepatic cirrhosis type, unspecified whether ascites present documented in this encounter Care Teams Land Resource Specialist Relationship Specialty Start Date End Date Suresh Nicolasa Chan, YULIA [address] [place] [address] PCP - General Family Medicine 01/08/21 documented as of this encounter
--- OUTSIDE RECORDS SUMMARY | 2023-11-24 01:20 | XMS_ITS | Encounter Summary ---
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
--- OUTSIDE RECORDS SUMMARY | 2023-11-24 01:20 | XMS_ITS | Encounter Summary ---
Author [facility] [place] [address] Care Team Providers Care Storekeeper Steward Name Role Phone Nicolasa Prince APRN Primary Care Provider +1- [phone] Encounter Details Date Type Department Care Team (Late Contact Info) Description 09/04/2021 [place] [address] Thania Wilson, RN Social History Tobacco Use [...] at 09/03/2021 10:04 AM EDT ----- No [facility] account. AIH/PBC- recently cut azathioprine dose. Could you call her and ask to repeat labs in 4 weeks? Thanks irene 09/04 Called pt; had to leave [facility]. Nurse contact info provided. Need to confirm current aza dose. 09/18 Called pt; she is scheduled for 09/25 blood draw at her PCP. Will plan to request those results. documented in this encounter Plan of Treatment Not on file documented as of this encounter Visit Diagnoses Not on filedocumented in this encounter Care Teams Storekeeper Steward Relationship Specialty Start Date End Date Nicolasa Prince, BED MAKER [address] [place] [address] PCP - General Family Medicine 01/08/21 documented as of this encounter
--- OUTSIDE RECORDS SUMMARY | 2023-11-24 01:20 | XMS_ITS | Encounter Summary ---
Author Organization [facility] Address [facility] [place] [address] Care Team Providers Care Dining Car Server Name Role Phone Nicolasa Prince APRN Primary Care Provider +1- [phone] Encounter Details Date Type Department Care Team (Late st Contact Info) Description 11/24/2021 External Results [place] [address] Irene Lara MD [facility] [place] [address] Social History Tobacco Use Types Packs/Day Years [...] on filedocumented in this encounter Care Teams Dining Car Server Relationship Specialty Start Date End Date Nicolasa Prince APRN [address] [place], [place] [address] PCP - General Family Medicine 01/08/21 documented as of this encounter
--- OUTSIDE RECORDS SUMMARY | 2023-11-24 01:20 | XMS_ITS | Encounter Summary ---
Author Organization [facility] [place] [address] Care Team Providers Care Microsoft Access Developer Name Role Phone Nicolasa Prince APRN Primary Care Provider +1- [phone] Encounter Details Date Type Department Care Team (Late st Contact Info) Description 02/10/2022 11:30 AM EDT Office [place] [address] Irene Lamar MD [facility] [place] [place] [address] Autoimmune hepatitis; Primary biliary cholangitis; Hepatic cirrhosis, [...] PBC/AIH. Her original diagnosis was made in [place] and she was managed by a balance wheel arm burnisher at [facility]. Her records were [...] for HCC screening, may time this with EGD/[place] Time spent with patient: 40 min Time spent reviewing records, documentin min Irene Lamar MD Section of Gastroenterology & Hepatology [address] [place] [address] Cc: Nicolasa Prince APRN SURGICAL PATHOLOGY REPORT ? Patient: PREMA SALGADO ?MR #: [id number] ?Submitted by: Elie Moreno MD FINAL DIAGNOSIS [...] the ductules cannot be definitively distinguished from chickaloon bile ducts. ??There is patchy periportal hepatocellular [...] had a prior liver biopsy reviewed at [facility] (see accession number [id number]), although the slides are not available for direct comparison at this time. ??However, based on the microscopic description, it appears that fibrosis may have progressed. documented in this encounter Procedure Notes * Irene Lamar MD - 02/10/2022 11:30 AM EDTAssociated Order(s): FIBROSCAN Procedure(s): FIBROSCAN Pre-Procedure Diagnose(s): Autoimmune hepatitis; Primary biliary cholangitis [facility] Liver Fibrosis Assessment Report Indication: AIH/PBC, assess for portal htn Performed by: HOWARD Rockwell Procedure: Vibration Controlled Transient Elastography (VCTE) or Fibroscan Erwin Protocol: Patient's identity, procedure and site were [...] Procedure Name Priority Date/Time Associated Diagnosis Comments [id number] Routine 02/10/2022 11:30 AM EDT Autoimmune hepatitis [...] PM Electronically signed by: Kashmir Lindsay MD, [facility] ([phone]), at 08/17/2022 2:04 PM Thank you for letting us participate in the care of this patient. If you are a health care provider and have any questions regarding this report, please contact the number above. For patients who have questions, please contact the health emergency care tech that requested your imaging first. ?Kashmir Lindsay, Staff Physician Electronically Signed Final Report ?? 08/17/2022 02:12 pm Narrative 08/17/2022 2:12 PM EDT Abdominal ? (Signed Final 08/17/2022 02:12 pm) PATIENT INFO: ID #: ? [id number] ?: ??[birth year] (71 yrs)(F) Name: ? PREMA SALGADO ?Visit Date: 08/17/2022 10:53 am PERFORMED BY: Attending: ?Neftali LUTHER, [place] Resident: ? Milagros LUTHER, James Curtis Performed By: ? Angelina Crystal RDMS Referred By: ?IRENE LAMAR Location: ? [place] SERVICE(S) PROVIDED: UABDLIMHE - Hepatology Protocol - Abdominal ?31022 Limited Survey Single Organ or Quadrant - [id number] INDICATIONS: cirrhosis, screen for hcc; assess for [...] 08/17/2022 02:12 pm) PATIENT INFO: ID #: [id number] : 54 (71 yrs)(F) Name: PREMA SALGADO Visit Date: 08/17/2022 10:53 am PERFORMED BY: Attending: Kashmir Lindsay MD Resident: James Linares MD Performed By: Angelina Crystal RDMS Referred By: IRENE LAMAR Location: [place] SERVICE(S) [facility] Hep[facility] Protocol - Abdominal 91226 Limited Survey Single Organ or Quadrant - [id number] INDICATIONS: cirrhosis, screen for hcc; assess for [...] questions, please contact the health emergency care tech that requested your imaging first. Kashmir Lindsay, Staff Physician Electronically Signed Final Report 08/17/2022 02:12 pm Irene Lamar MD IMG US GEN ORDERABLE S * [id number] (02/10/2022 11:30 AM EDT) Narrative Irene Lamar MD - 02/10/2022 11:30 AM EDT Irene Lamar MD ? 02/11/2022 ??8:29 AM [facility] Liver Fibrosis Assessment Report Indication: ??AIH/PBC, assess for portal htn Performed by: ??HOWARD Rockwell Procedure: Vibration Controlled Transient Elastography (VCTE) or Fibroscan Erwin Protocol: Patient's identity, procedure and site were [...] present documented in this encounter Care Teams Microsoft Access Developer Relationship Specialty Start Date End Date Nicolasa Prince APRN [address] [place] [address] PCP - General Family Medicine 01/08/21 documented as of this encounter
--- OUTSIDE RECORDS SUMMARY | 2023-11-24 01:20 | XMS_ITS | Encounter Summary ---
[place] [address] Care Team Providers Care Conveyor Man Name Role Phone Nicolasa Prince APRN Primary Care Provider +1- [phone] Reason for Referral * Diagnostic Test (Routine) - Closed Specialty Diagnoses / Procedures Referred By Minh miguel Referred To Contact Radiology Diagnoses Primary biliary cholangitis Procedures MRI Abdomen wwo Contrast (Generic) Harmony Dobson APRN [facility] [place] [address] [place] [address] Referral ID Status Reason Start Date Expiration Date V isits Requested Visits Authorized [id number] Closed Specialty Service Requested 02/19/2021 08/20/2022 1 1 Reason for Visit * Reason Comments GI Problem * Consultation (Routine) - Closed Specialty Diagnoses / Procedures Referred By Minh miguel Referred To Contact Gastroenterology Diagnoses Primary biliary cirrhosis Primary biliary cirrhosis Nicolasa Prince APRN [address] [place] [address] [facility] [address] [place] [address] Referral ID Status Reason Start Date Expiration Date V isits Requested Visits Authorized [id number] Closed Consult, Test & Treat Connection Center PCP Updated and/or Approved 12/25/2020 06/27/2021 6 6 Encounter Details Date Type Department Care Team (Late st Contact Info) Description 02/19/2021 9:00 AM EDT Office [place] [phone] Harmony Dobson APRN [facility] [place] [address] Primary biliary cholangitis; Hepatic cirrhosis, unspecified hepatic [...] HEPATOLOGY NEW PATIENT CONSULTATION Cookie Salgado 1950 COUNT TEAM MEMBER: HARMONY DOBSON APRN PCP: Nicolasa Prince APRN Requesting Provider: REASON FOR CONSULTATION Primary biliary cholangitis, AIH, cirrhosis transfer of care HISTORY OF PRESENT ILLNESS Cookie Salgado is a 70 y.o. year old female with history of Primary biliary cholangitis who presents today to establish care for her PBC. She was previously followed by hepatology in [place] and recently moved to [place]. She was last followed by GI at [place] - Dr. Yasmin Fletcher. Takes Ursodiol 500mg [...] though she has cirrhosis. She moved to [place] at end of October 2020. She is living in the [facility] with her brother and has had anumber [...] T2 correlate or washout/pseudocapsule (LI-RADS 3). A insurance follow up representative lesion is seen on series 9 [...] D3,) 50 mcg (2,000 unit) [facility]. ??? 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 Lives near 2 brothers. Alcohol: [...] T2 correlate or washout/pseudocapsule (LI-RADS 3). A insurance follow up representative lesion is seen on series 9 [...] previously followed by Dr. Yasmin Woodson at [facility] and has been on a relatively [...] Dobson APRN Section of [place]astroenter[place] [address] Copy: Nicolasa Prince APRN [address] / [facility] [address] documented in this encounter Plan of Treatment [...] who have questions please contact the health neurocritical care physician that requested your imaging first. ? Electronically signed by: Ramon Verduzco MD, [facility] ([phone]), at 07/22/2021 11:29 AM Narrative 07/22/2021 11:29 [...] patients who have questions please contactthe health neurocritical care physician that requested your imaging first. Electronically signed by: Ramon Verduzco MD, [facility]([phone]), at 07/22/2021 11:29 AM Harmony Dobson TURNAROUND ENGINEER IMG MRI ORDERABLES * Differential, Automated (02/19/2021 10:54 AM EDT) Neutrophils % 65.2 % [facility] Neutr Abs (ANC) 3.05 1.70 - 6.10 x10(3)/[facility] Lymphocytes % 23.9 % [facility] Lymphocytes Abs 1.1 0.9 - 3.2 x10(3)/[facility] LABOR[facility] Monocytes % 8.8 % [facility] Monocyte Abs 0.4 0.3 - 0.9 x10(3)/[facility] LABORATORY Eosinophils % 1.3 % [facility] Eosinophils Abs 0.1 0.0 - 0.4 x10(3)/[facility] LABOR[facility]ORY Basophils % 0.6 % [facility] Basophils Abs 0.0 0.0 - 0.1 x10(3)/[facility] LABORATORY Immature Gran % 0.20 % [facility] Comment: Immature granulocytes(IG's)percentage and absolute count will include metamyelocytes, myelocytes, and promyelocytes. Blood smears from CBCs yielding IG's will be scanned manually for concordance. If this scan disagrees with the automated IG or if promyelocytes are noted, a manual differential will be performed. Sydnee Gran Abs 0.01 0.00 - 0.04 x10(3)/[facility] LAB[facility]ORY Blood 02/19/2021 10:5 4 AM EDT 02/19/2021 11:02 AM EDT Narrative Resulting Agency Comment Spec In Lab Harmony Dobson TURNAROUND ENGINEER HEMATOLOGY ORDERAB LES [facility] [place] [address] * (ABNORMAL) Hemogram (02/19/2021 10:54 AM EDT) [facility] Signature WBC 4.7 4.0 - 9.5 x10(3)/[facility] LABORATORY RBC 5.15 4.00 - 5.21 x10(6)/[facility]ORY Hemoglobin 16.6(H) 11.7 - 15.5 g/dL [facility] Hematocrit 48.4(H) 35.7 - 45.8 % [facility] MCV 94.0 82.6 - 94.4 [facility]ORATORY MCH 32.2(H) 27.1 - 32.0 pg [facility] MCHC 34.3 31.7 - 35.0 g/dL [facility] Platelets 146 145 - 357 x10(3)/[facility] LABORATORY RDWSD 46.0 37.0 - 46.0 [facility]ORATORY RDWCV 13.3 11.5 - 14.1 % [facility] MPV 10.6 7.6 - 12.9 [facility] LABORATORY nRBC % Auto 0.0 % [facility] nRBC Abs Auto 0.000 0.000 - 0.000 x10(3)/[facility] Blood 02/19/2021 10:5 4 AM EDT 02/19/2021 11:02 AM EDT Narrative Resulting Agency Comment Spec In Lab Harmony Dobson TURNAROUND ENGINEER HEMATOLOGY ORDERAB LES [facility] [place] [address] * (ABNORMAL) Hemoglobin A1c (02/19/2021 10:54 AM EDT) Hemoglobin A1C 8.0(H) 4.3 - 5.6 % [facility] Comment: Reference Range: 4.3 - [...] Mellitus, Diabetes Care 2013; 36: Suppl. 1, S67-70 Est Avg Gluc 181 mg/dL [facility] Comment: eAG equivalents for HbA1c [...] into estimated average glucose values. ??Diabetes Care 2008:31(8):4634-1532. Blood 02/19/2021 10:5 4 AM EDT 02/19/2021 11:02 AM EDT Narrative Resulting Agency Comment Spec In Lab Harmony Dobson APRN CHEMISTRY ORDERABL ES Performing Organization Address [facility] Co de Phone Number [facility] [place] [address] * Prothrombin Time (02/19/2021 10:54 AM EDT) Pathologist [facility] PT 11.7 9.4 - 12.5 sec [facility] INR 1.0 [facility] Comment: An INR <2.0 [...] APRN HEMATOLOGY ORDERAB LES Performing Organization Address [facility] Co de Phone Number [facility] [place] [address] * AFP tumor marker (02/19/2021 10:54 AM EDT) [facility] AFP 3.0 <=8.3 ng/mL [facility] Blood 02/19/2021 10:5 4 AM EDT 02/19/2021 11:02 AM EDT Narrative Resulting Agency Comment Spec In Lab Harmony Dobson APRN CHEMISTRY ORDERABL ES Performing Organization Address [facility] Co de Phone Number [facility] [place] [address] * (ABNORMAL) Comprehensive metabolic panel (non-fasting) (02/19/2021 10:54 AM EDT) [facility] Glucose Lvl 141 65 - 199 mg/dL [facility] Comment:Diabetes: >=200 mg/d L plus symptoms BUN 23(H) 8 - 18 mg/dL [facility] Creatinine 0.79 0.70 - 1.20 mg/dL [facility] Sodium 136 135 - 145 mmol/L [facility] Potassium 4.2 3.5 - 5.0 mmol/L [facility] Comment: Please note: ??Patients with WBC >100,000 may have falsely elevated Potassium levels. ??For accurate Potassium quantification in these patients send serum separator tube (gold top) for subsequent determinations. ??Contact the Clinical Chemistry Laboratory if there are any questions. Chloride 104 98 - 107 mmol/L [facility] CO2 24 22 - 31 mmol/L [facility] Anion Gap 8 5 - 15 mmol/L [facility] Calcium 10.0 8.5 - 10.5 mg/dL [facility] Total Protein 7.9 6.1 - 8.0 g/dL [facility] Albumin 4.3 3.2 - 5.2 g/dL [facility] AST 24 0 - 30 unit/L [facility] ALT 21 0 - 30 unit/L [facility] Alk Phos 81 35 - 105 unit/L [facility] Total Bilirubin 0.6 0.2 - 1.3 mg/dL [facility] Estimated GFR 77 >=60 mL/min/1. 73 m?? [facility] Comment: This patient? s estimated [...] Agency Comment Spec In Lab Harmony Dobson TURNAROUND ENGINEER CHEMISTRY ORDERABL ES [facility] [place] [address] documented in this encounter Visit Diagnoses Diagnosis Primary biliary cholangitis Hepatic cirrhosis, unspecified hepatic cirrhosis type, unspecified whether ascites present Autoimmune hepatitis Screening for colon cancer Special screening for malignant neoplasms, colon Primary biliary cholangitis documented in this encounter Care Teams Conveyor Man Relationship Specialty Start Date End Date Nicolasa Prince APRN [address] [place] [address] PCP - General Family Medicine 01/08/21 documented as of this encounter
--- OUTSIDE RECORDS SUMMARY | 2023-11-24 01:20 | XMS_ITS | Encounter Summary ---
Author Organization [facility] [place] [address] Care Team Providers Care Packing And Final Assembly Supervisor Name Role Phone Nicolasa Prince APRN Primary Care Provider +1- [phone] Encounter Details Date Type Department Care Team [...] on filedocumented in this encounter Care Teams Packing And Final Assembly Supervisor Relationship Specialty Start Date End Date Nicolasa Prince APRN [address] [place] [address] PCP - General Family Medicine 01/08/21 documented as of this encounter
--- OUTSIDE RECORDS SUMMARY | 2023-11-24 01:20 | XMS_ITS | Encounter Summary ---
Author Organization [facility] [place] [address] Care Team Providers Care Poultry Farmworker Name Role Phone Nicolasa Prince APRN Primary Care Provider +1- [phone] Encounter Details Date Type Department Care Team (Late st Contact Info) Description 07/22/2021 1:30 PM EDT Office [place] [address] Carolynn Lamar MD [facility] [place] [address] Primary biliary cholangitis; Type 2 diabetes mellitus [...] [place] and she was managed by a soft water mechanic at [facility]. Her records were extensively reviewed today in [...] been normal sinceapproximately 2017. She moved to [place] about a year ago. She is living [...] Lamar MD Section of Gastroenterology & Hepatology [address] [place] [address] Cc: Nicolasa Prince APRN SURGICAL PATHOLOGY REPORT ? Patient: PREMA SALGADO ?MR #: [id number] ?Submitted by: Elie Moreno MD FINAL DIAGNOSIS [...] the ductules cannot be definitively distinguished from g[place] river bile ducts. ??There is patchy periportal hepatocellular [...] prior liver biopsy reviewed at [facility] (see accession number [id number]), although the slides are not available for [...] dilatation. Electronically signed by: Fiordaliza Fabian MD, [facility] ([phone]), at 02/10/2022 10:32 AM Thank you for letting us participate in the care of this patient. If you are a health care provider and have any questions regarding this report, please contact the number above. For patients who have questions, please contact the health memory care program resident that requested your imaging first. ? Fiordaliza Fabian, Staff Physician Electronically Signed Final Report ?? 02/10/2022 10:39 am Narrative 02/10/2022 10:39 AM EDT Abdominal ? (Signed Final 02/10/2022 10:39 am) PATIENT INFO: ID #: ? [id number] ?: ??[birth year] (71 yrs)(F) Name: ? PREMA SALGADO ?Visit Date: 02/10/2022 10:18 am PERFORMED BY: Performed By: ? Sarahi Flores RDMS Attending: ?Caren LUTHER, Fiordaliza Prado Referred By: ?CAROLYNN HENSLEYR Location: ? [place] [facility] Protocol - Abdominal ?16349 Limited Survey Single Organ or Quadrant - [id number] INDICATIONS: Cirrhosis, screen for HCC COMPARISON: MRI [...] 02/10/2022 10:39 am) PATIENT INFO: ID #: [id number] : [birth year] (71 yrs)(F) Name: PREMA SALGADO Visit Date: 02/10/2022 10:18 am PERFORMED BY: Performed By: Sarahi Flores RDMS Attending: Fiordaliza Fabian MD Referred By: CAROLYNN LAMAR Location: [place] SERVICE(S) PROVIDED: [facility] - Hepatology Protocol - Abdominal 89241 Limited Survey Single Organ or Quadrant - [id number] INDICATIONS: Cirrhosis, screen for HCC COMPARISON: MRI [...] who have questions, please contact the health memory care program resident that requested your imaging first. Fiordaliza Fabian, Staff Physician Electronically Signed Final Report 02/10/2022 10:39 am Carolynn Lamar MD IMG US GEN ORDERABLE S * Prothrombin Time (07/22/2021 11:40 AM EDT) PT 11.6 9.4 - 12.5 sec [facility] INR 1.0 [facility] [...] MD HEMATOLOGY ORDERABLE S Performing Organization Address [facility] Co de Phone Number [facility] [place] [address] * AFP tumor marker (07/22/2021 11:40 AM EDT) AFP 3.4 <=8.3 ng/mL [facility] Blood 07/22/2021 11:4 0 AM EDT 07/22/2021 11:55 AM EDT Narrative Resulting Agency Comment Spec In Lab Carolynn Lamar MD CHEMISTRY ORDERABLES Performing Organization Address [facility]/ZIP Co de Phone Number [facility] [place] [address] * (ABNORMAL) Comprehensive metabolic panel (non-fasting) (07/22/2021 11:40 AM EDT) Glucose Lvl 156 65 - 199 mg/dL [facility] Comment:Diabetes: >=200 mg/d L plus symptoms BUN 23(H) 8 - 18 mg/dL [facility] Creatinine 0.88 0.70 - 1.20 mg/dL [facility] Sodium 135 135 - 145 mmol/L [facility] Potassium 4.4 3.5 - 5.0 mmol/L [facility] Comment: Please note: ??Patients with WBC >100,000 may have falsely elevated Potassium levels. ??For accurate Potassium quantification in these patients send serum separator tube (gold top) for subsequent determinations. ??Contact the Clinical Chemistry Laboratory if there are any questions. Chloride 104 98 - 107 mmol/L [facility] CO2 18(L) 22 - 31 mmol/L [facility] Anion Gap 13 5 - 15 mmol/L [facility] Calcium 10.0 8.5 - 10.5 mg/dL [facility] Total Protein 7.8 6.1 - 8.0 g/dL [facility] Albumin 4.5 3.2 - 5.2 g/dL [facility] AST 29 0 - 30 unit/L [facility] ALT 26 0 - 30 unit/L [facility] Alk Phos 89 35 - 105 unit/L [facility] Total Bilirubin 0.7 0.2 - 1.3 mg/dL [facility] Estimated GFR 68 >=60 mL/min/1. 73 m?? [facility] Comment: This patient? s estimated glomerular [...] Lamar MD CHEMISTRY ORDERABLES Performing Organization Address City/State/[facility] Co de Phone Number [facility] [place] [address] documented in this encounter Visit Diagnoses Diagnosis Primary biliary cholangitis Type 2 diabetes mellitus without complication, without long-term current use of insulin Hepatic cirrhosis, unspecified hepatic cirrhosis type, unspecified whether ascites present Primary biliary cholangitis Hepatic cirrhosis, unspecified hepatic cirrhosis type, unspecified whether ascites present documented in this encounter Care Teams Poultry Farmworker Relationship Specialty Start Date End Date Nicolasa Prince APRN [address] [place] [address] PCP - General Family Medicine 01/08/21 documented as of this encounter
--- OUTSIDE RECORDS SUMMARY | 2023-11-24 01:20 | XMS_ITS | Encounter Summary ---
Author Organization [facility] [place] [address] Care Team Providers Care Bag Liner Name Role Phone Nicolasa Prince APRN Primary Care Provider +1- [phone] Encounter Details Date Type Department Care Team (Late st Contact Info) Description 01/22/2021 Telephone Cardiology at [address] [phone] Lorie Garza, JAY Social History Tobacco Use [...] on filedocumented in this encounter Care Teams Bag Liner Relationship Specialty Start Date End Date Nicolasa Prince APRN [address] [place] [address] PCP - General Family Medicine 01/08/21 documented as of this encounter
--- OUTSIDE RECORDS SUMMARY | 2023-11-24 01:20 | XMS_ITS | Encounter Summary ---
[place] [address] Care Team Providers Care Supply Cataloguer Name Role Phone Nicolasa Prince YULIA Primary Care Provider +1- [phone] Encounter Details Date Type Department Care Team (Latest Contact Info) Description 07/22/2021 11:35 AM EDT Laboratory Appointment Lab [address] [place] [phone] Primary biliary cholangitis Social History Tobacco Use [...] Mellitus, Diabetes Care 2013; 36: Suppl. 1, S67-45 Est Avg Gluc 222 mg/dL [facility] Comment: eAG equivalents for [...] into estimated average glucose values. ??Diabetes Care 2008:31(8):4589-9544. Blood Venous Draw / Unknown 07/22/2021 11:40 AM EDT 07/22/2021 2:17 PM EDT Narrative Resulting Agency Comment Spec In Lab Irene Lara MD CHEMISTRY ORDERABLES [facility] [place] [address] * Differential, Automated (07/22/2021 11:40 AM EDT) Neutrophils % 67.4 % [facility] Neutr Abs (ANC) 3.18 1.70 - 6.10 x10(3)/[facility] LABORATORY Lymphocytes % 22.0 % [facility] Lymphocytes Abs 1.0 0.9 - 3.2 x10(3)/[facility] Monocytes % 8.7 % [facility] Monocyte Abs 0.4 0.3 - 0.9 x10(3)/[facility] Eosinophils % 1.3 % [facility] Eosinophils Abs 0.1 0.0 - 0.4 x10(3)/[facility]ORY Basophils % 0.4 % [facility] Basophils Abs 0.0 0.0 - 0.1 x10(3)/[facility]OR[facility]ORY Immature Gran % 0.20 % [facility] Comment: Immature granulocytes(IG's)percentage and absolute count will include metamyelocytes, myelocytes, and promyelocytes. Blood smears from CBCs yielding IG's will be scanned manually for concordance. If this scan disagrees with the automated IG or if promyelocytes are noted, a manual differential will be performed. Sydnee Gran Abs 0.01 0.00 - 0.04 x10(3)/[facility] Blood 07/22/2021 11:4 0 AM EDT 07/22/2021 11:55 AM EDT Narrative Resulting Agency Comment Spec In Lab Irene Lara MD HEMATOLOGY ORDERABLE S [facility] [place] [address] * (ABNORMAL) Hemogram (07/22/2021 11:40 AM EDT) [facility] WBC 4.7 4.0 - 9.5 x10(3)/[facility] RBC 5.44(H) 4.00 - 5.21 x10(6)/[facility] Hemoglobin 16.8(H) 11.7 - 15.5 g/dL [facility] Hematocrit 49.7(H) 35.7 - 45.8 % [facility] MCV 91.4 82.6 - 94.4 [facility] MCH 30.9 27.1 - 32.0 pg [facility] MCHC 33.8 31.7 - 35.0 g/dL [facility] Platelets 141(L) 145 - 357 x10(3)/[facility]OR[facility] RDWSD 45.5 37.0 - 46.0 [facility] RDWCV 13.5 11.5 - 14.1 % [facility] MPV 10.8 7.6 - 12.9 [facility] nRBC % Auto 0.0 % [facility] nRBC Abs Auto 0.000 0.000 - 0.000 x10(3)/[facility] Blood 07/22/2021 11:4 0 AM EDT 07/22/2021 11:55 AM EDT Narrative Resulting Agency Comment Spec In Lab Irene Lara MD HEMATOLOGY ORDERABLE S [facility] [place] [address] * (ABNORMAL) Comprehensive metabolic panel (non-fasting) (07/22/2021 11:40 AM EDT) [facility] Glucose Lvl 156 65 - 199 mg/dL [...] Lara MD CHEMISTRY ORDERABLES Performing Organization Address [facility] Co de Phone Number [facility] [place] [address] * AFP tumor marker (07/22/2021 11:40 AM EDT) AFP 3.4 <=8.3 ng/mL [facility] Blood 07/22/2021 11:4 0 AM EDT 07/22/2021 11:55 AM EDT Narrative Resulting Agency Comment Spec In Lab Irene Lara MD CHEMISTRY ORDERABLES Performing Organization Address [facility] Phone Number [facility] [place] [address] * Prothrombin Time (07/22/2021 11:40 AM EDT) PT 11.6 9.4 - 12.5 sec [facility] INR [address] [facility] Comment: An INR <2.0 indicates [...] MD HEMATOLOGY ORDERABLE S Performing Organization Address [facility] Co de Phone Number [facility] [place] [address] documented in this encounter Visit Diagnoses Diagnosis Primary biliary cholangitis documented in this encounter Care Teams Supply Cataloguer Relationship Specialty Start Date End Date Nicolasa Prince, YULIA [address] [place] [address] PCP - General Family Medicine 01/08/21 documented as of this encounter
--- OUTSIDE RECORDS SUMMARY | 2023-11-24 01:20 | XMS_ITS | Encounter Summary ---
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 Neutr Abs (ANC) 2.95 1.70 - 6.10 x10(3)/[facility] Lymphocytes % 18.2 % [facility] Lymphocytes Abs 0.8(L) 0.9 - 3.2 x10(3)/[facility] Monocytes % 9.1 % [facility] Monocyte Abs 0.4 0.3 - 0.9 x10(3)/[facility] Eosinophils % 1.2 % [facility] Eosinophils Abs 0.0 0.0 - 0.4 x10(3)/[facility] Basophils % 0.5 % [facility] Basophils Abs 0.0 0.0 - 0.1 x10(3)/[facility] Immature Gran % 0.20 % [facility] Comment: Immature granulocytes(IG's)percentage and absolute count will include metamyelocytes, myelocytes, and promyelocytes. Blood smears from CBCs yielding IG's will be scanned manually for concordance. If this scan disagrees with the automated IG or if promyelocytes are noted, a manual differential will be performed. Sydnee Gran Abs 0.01 0.00 - 0.04 x10(3)/[facility] LABOR[facility] Blood Venous Draw / Unknown 02/10/2022 11:06 AM EDT 02/10/2022 12:06 PM EDT Narrative Resulting Agency Comment Spec In Lab Irene Lara MD HEMATOLOGY ORDERABLE S [facility] [place] [address] * (ABNORMAL) Hemogram (02/10/2022 11:06 AM EDT) Pathologist [facility] WBC 4.2 4.0 - 9.5 x10(3)/[facility] LABORATORY RBC 5.02 4.00 - 5.21 x10(6)/[facility] Hemoglobin 15.8(H) 11.7 - 15.5 g/dL [facility] Hematocrit 45.7 35.7 - 45.8 % [facility] MCV 91.0 82.6 - 94.4 [facility] MCH 31.5 27.1 - 32.0 pg [facility] MCHC 34.6 31.7 - 35.0 g/dL [facility] Platelets 118(L) 145 - 357 x10(3)/[facility] RDWSD 43.9 37.0 - 46.0 [facility] RDWCV 13.1 11.5 - 14.1 % [facility] MPV 10.4 7.6 - 12.9 [facility] nRBC % Auto 0.0 % [facility] nRBC Abs Auto 0.000 0.000 - 0.000 x10(3)/[facility] Blood Venous Draw / Unknown 02/10/2022 11:06 AM EDT 02/10/2022 12:06 PM EDT Narrative Resulting Agency Comment Spec In Lab Irene Lara MD HEMATOLOGY ORDERABLE S [facility] [place] [address] * (ABNORMAL) Hemoglobin A1c (02/10/2022 11:06 AM EDT) Hemoglobin A1C 7.0(H) 4.3 - 5.6 % [facility] Comment: Reference Range: 4.3 [...] 1, S67-74 Est Avg Gluc 155 mg/dL [facility] Comment: eAG equivalents for [...] into estimated average glucose values. ??Diabetes Care 2008:31(8):6225-5717. Blood 02/10/2022 11:0 6 AM EDT 02/10/2022 11:10 AM EDT Narrative Resulting Agency Comment Spec In Lab Irene Lara MD CHEMISTRY ORDERABLES [facility] [place] [address] * Hepatic Function Panel (02/10/2022 11:06 AM EDT) Total Protein 7.4 6.1 - 8.0 g/dL [facility] Albumin 4.2 3.2 - 5.2 g/dL [facility] AST 21 0 - 30 unit/L [facility] ALT 17 0 - 30 unit/L [facility] Alk Phos 71 35 - 105 unit/L [facility] Total Bilirubin 0.6 0.2 - 1.3 mg/dL [facility] Bili, Direct 0.2 0.0 - 0.3 mg/dL [facility] Blood 02/10/2022 11:0 6 AM EDT 02/10/2022 11:10 AM EDT Narrative Resulting Agency Comment Spec In Lab Irene Lara MD CHEMISTRY ORDERABLES [facility] [place] [address] documented in this encounter Visit Diagnoses Diagnosis Primary biliary cholangitis Type 2 diabetes mellitus with other specified complication, unspecified 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
--- OUTSIDE RECORDS SUMMARY | 2023-11-24 01:20 | XMS_ITS | Encounter Summary ---
Author Organization [facility] Address [facility] [place] [address] Care Team Providers Care Regional Geodetic Advisor Name Role Phone Nicolasa Prince APRN Primary Care Provider +1- [phone] Encounter Details Date Type Department Care Team (Late st Contact Info) Description 10/14/2021 External Results Gastroenterology at [facility] [place] [address] Irene Lara MD [facility] [address] Social History Tobacco Use Types Packs/Day Years [...] on filedocumented in this encounter Care Teams Regional Geodetic Advisor Relationship Specialty Start Date End Date Nicolasa Prince APRN [address] [place], [place] [address] PCP - General Family Medicine 01/08/21 documented as of this encounter
--- OUTSIDE RECORDS SUMMARY | 2023-11-24 01:20 | XMS_ITS | Encounter Summary ---
[facility] [place] [address] Care Team Providers Care Rn X Ray Name Role Phone Nicolasa Prince APRN Primary Care Provider +1- [phone] Encounter Details Date Type Department Care Team (Late st Contact Info) Description 01/28/2021 Orders Only Cardiology at [address] [address] Kylah Arellano APRN [facility] [address] Atherosclerosis of [place] coronary artery without angina pectoris, unspecified whether [place] or transplanted heart Social History Tobacco Use [...] this encounter Visit Diagnoses Diagnosis Atherosclerosis of [place] coronary artery without angina pectoris, unspecified whether [place] or transplanted heart documented in this encounter Care Teams Rn X Ray Relationship Specialty Start Date End Date Nicolasa Prince APRN [address] [place] [address] PCP - General Family Medicine 01/08/21 documented as of this encounter
--- OUTSIDE RECORDS SUMMARY | 2023-11-24 01:20 | XMS_ITS | Encounter Summary ---
Author Organization [facility] Address [facility] [place] [address] Care Team Providers Care Cable Installation Technician Name Role Phone Nicolasa Prince APRN Primary Care Provider +1- [phone] Encounter Details Date Type Department Care Team (Late st Contact Info) Description 10/29/2021 Orders Only [place] [address] Irene Lara MD [facility] [place] [address] Type 2 diabetes mellitus with other specified complication, unspecified whether usp insulin use Social History Tobacco Use Types [...] (ABNORMAL) Hemoglobin A1c (02/10/2022 11:06 AM EDT) [facility] Hemoglobin A1C 7.0(H) 4.3 - 5.6 % [facility] Comment: Reference Range: [...] Mellitus, Diabetes Care 2013; 36: Suppl. 1, S65-84 Est Avg Gluc 155 mg/dL [facility] [...] into estimated average glucose values. ??Diabetes Care 2008:31(8):2104-3373. 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
== END ==
PROVIDERS: PCP Nurse Practitioner Family; Visit Provider Physician Assistant
DX: R22.43 Localized swelling, mass and lump, lower limb, bilateral (principal)
CPT/HCPCS: 93971

== ENCOUNTER 2024-01-11 02:34 | Outpatient (CLI) | payer MEDICARE, SELFPAY ==
[2024-01-11 12:03] LABS: Absolute Basophil Count 0.05 10^3/uL (0.0-0.2); Absolute Eosinophil Count 0.06 10^3/uL (0.0-0.7); Absolute Lymphocyte Count 1.18 10^3/uL (1.2-3.4); Absolute Monocyte Count 0.52 10^3/uL (0.1-0.8); Basophils % 1.2 %; Eosinophils % 1.5 %; HCT 47.3 % (36.0-46.0); Lymphocytes % 28.7 %; MCH 31.5 pg (27.0-33.0); MCHC 33.8 % (32.0-36.0); MCV 93 fL (80-95); MPV 11.4 fL (8.0-11.0); Monocytes % 12.7 %; Neutrophils % 55.9 %; Platelet Count 159 10^3/uL (130-400); RBC 5.08 10^6/uL (3.93-5.22); RDW 13.9 % (11.7-14.6); RDW-SD 47.6 fL; WBC 4.11 10^3/uL (4.4-10.8)
[2024-01-11 12:12] LABS: Prothrombin Time 10.5 sec (9.1-11.1)
[2024-01-11 12:30] LABS: ALT 23 U/L (14-59); AST 22 U/L (15-37); Albumin 3.6 g/dL (3.4-5.0); Alkaline Phosphatase 59 U/L (46-116); Anion Gap 8.5 mmol/L (3-11); BUN 33 mg/dL (7-18); Bilirubin, Total 0.62 mg/dL (0.2-1.0); CO2 25.5 mmol/L (21.0-32.0); CREATININE 0.9 mg/dL (0.55-1.02); Calcium 9.9 mg/dL (8.5-10.1); Chloride 104 mmol/L (98-107); Estimated GFR 68.35 (mL/min/1.73m2); Glucose 129 mg/dL (74-106); Potassium 4.7 mmol/L (3.5-5.1); Sodium 138 mmol/L (136-145); Total Protein 7.8 g/dL (6.4-8.2)
[2024-01-12 09:57] LABS: AFP Tumor Marker <2.5 ng/mL (<8.1)
== END 2024-01-11 02:35 | disposition home or self-care (01) ==
LOC: LBO 02:34
PROVIDERS: PCP Nurse Practitioner Family; Visit Provider Internal Medicine Gastroenterology
DX: K74.3 Primary biliary cirrhosis (principal); K74.60 Unspecified cirrhosis of liver
CPT/HCPCS: 36415; 80053; 80076; 82105; 85025; 85610

== ENCOUNTER → 2024-01-25 07:59 | Outpatient (BNVA) | payer MEDICARE, SELFPAY | PROVIDERS: PCP Nurse Practitioner Family; Referring Provider Nurse Practitioner Family; Visit Provider Nurse Practitioner Adult Health | DX: M79.602 Pain in left arm (principal) | CPT/HCPCS: 99215 ==

== ENCOUNTER 2024-01-25 19:11 | Emergency (ER) | payer MEDICARE, SELFPAY ==
[2024-01-25 19:12] VITALS: BP 189/97; PULSE 79; RESP 16; TEMP 36.7
--- OUTSIDE RECORDS SUMMARY | 2024-01-25 19:16 | XMS_ITS | Encounter Summary ---
[place] [address] Care Team Providers Care Silk Screen Printer Name Role Phone Nicolasa Prince APRN Primary Care Provider +1- [phone] Reason for Referral * Diagnostic Test (Routine) - Closed Specialty Diagnoses / Procedures Referred By Patricioac t Referred To Contact Radiology Diagnoses Cervical radiculopathy Procedures MRI Cervical Spine wo Contrast (Generic) Nicolasa Prince APRN [address] [place] [address] [place] [address] Referral ID Status Reason Start Date Expiration Date V isits Requested Visits Authorized [id number] Closed Specialty Service Requested 12/09/2023 06/10/2025 1 1 Reason for Visit * Diagnostic Test (Routine) - Closed Specialty Diagnoses / Procedures Referred By Contac t Referred To Contact Radiology Diagnoses Cervical radiculopathy Procedures MRI Cervical Spine wo Contrast (Generic) Nicolasa Prince APRN [address] [place] [address] [place] [address] Referral ID Status Reason Start Date Expiration Date V isits Requested Visits Authorized [id number] Closed Specialty Service Requested 12/09/2023 06/10/2025 1 1 Encounter Details Date Type Department Care Team (Latest Contact Info) Description 12/30/2023 1:43 PM EDT - 12/30/2023 11:59 PM EDT [place] [address] PhilNicolasa toddYULIA [address] [place] [address] Cervical radiculopathy Discharge Disposition: Home Social History Tobacco Use [...] Date End Date fenofibrate (Tricor) 145 mg tabletIndications:Autoim mune hepatitis Take 1 tablet by mouth daily. 90 tablet 12/08/2023 Ursodiol (Bridgette Forte) 500 mg tabletIndications:Autoim mune hepatitis Take 1 tablet by mouth 2 times daily. 180 tablet 12/08/2023 Rybelsus 7 mg tablet 01/18/2023 metoprolol succinate [...] Name Priority Date/Time Associated Diagnosis Comments MRI CERVICAL SPINE WO CONTRAST Routine 12/30/2023 2:20 PM EDT Cervical radiculopathy documented in this encounter Results * MRI Cervical Spine wo Contrast (Generic) (12/30/2023 2:20 PM EDT) WORKSTATION ID [id number] [facility] Anatomical Region Laterality Modality C-spine Magnetic Resonan ce Impressions 12/31/2023 4:30 PM EDT Degenerative spondylosis as above, including moderate spinal canal narrowing and moderate/severe left foraminal stenosis at C4-C5. There is severe left foraminal stenosis at C5-C6 due to uncovertebral arthropathy. Thank you for letting us participate in the care of this patient. ??If you are a health care provider and have any questions regarding this report, please contact the number below. ??For patients who have questions please contact the health care partner that requested your imaging first. ? Electronically signed by: Vineet Ruggiero DO, [facility] ??([phone]), at 12/31/2023 4:30 PM Narrative 12/31/2023 4:30 PM EDT EXAMINATION: MRI CERVICAL SPINE WO CONTRAST (GENERIC) CLINICAL HISTORY: radiculpathy, cervical region M54.12, Radiculopathy, cervical region TECHNIQUE: MRI of the cervical spine performed without intravenous contrast administration. COMPARISON: None FINDINGS: Craniocervical junction and included posterior fossa structures are unremarkable. Vertebral body alignment, height and marrow signal are unremarkable. There is no abnormal signal of the cervical or thoracic spinal cord. C2-C3: No significant spinal or foraminal stenosis. C3-C4: Prominent right-sided facet arthropathy. No significant spinal or foraminal stenosis. C4-C5: Disc osteophyte complex formation with mild dorsal ligamentous encroachment on thecal sac causes moderate spinal canal narrowing and mild cord deformity. No myelopathic signal change. Facet and uncovertebral arthropathy cause moderate to severe left and mild right foraminal stenosis. C5-6: Disc osteophyte complex causes mild spinal stenosis. Uncovertebral arthropathy causes severe left foraminal narrowing. Right neural foramen is patent. C6-C7: Disc osteophyte complex causes mild spinal canal stenosis. Uncovertebral arthropathy on the left causes mild foraminal narrowing. No significant findings at C7-T1. Mild disc bulging without spinal stenosis noted at T1-T2. No paravertebral soft tissue pathology identified. Procedure Note Vineet Ruggiero DO - 12/31/2023 EXAMINATION: MRI CERVICAL SPINE WO CONTRAST (GENERIC) CLINICAL HISTORY: radiculpathy, cervical region M54.12, Radiculopathy, cervical region TECHNIQUE: MRI of the cervical spine performed without intravenous contrastadministration. COMPARISON: None FINDINGS: Craniocervical junction and included posterior fossa structures are unremarkable. Vertebral body alignment, height and marrow signal are unremarkable. There is no abnormal signal of the cervical or thoracic spinal cord. C2-C3: No significant spinal or foraminal stenosis. C3-C4: Prominent right-sided facet arthropathy. No significant spinal or foraminal stenosis. C4-C5: Disc osteophyte complex formation with mild dorsal ligamentous encroachment on thecal sac causes moderate spinal canal narrowing and mildcord deformity. No myelopathic signal change. Facet and uncovertebralarthropathy cause moderate to severe left and mild right foraminal stenosis. C5-6: Disc osteophyte complex causes mild spinal stenosis. Uncovertebral arthropathy causes severe left foraminal narrowing. Right neural foramenis patent. C6-C7: Disc osteophyte complex causes mild spinal canal stenosis.Uncovertebral arthropathy on the left causes mild foraminal narrowing. No significant findings at C7-T1. Mild disc bulging without spinal stenosis noted at T1-T2. No paravertebral soft tissue pathology identified. IMPRESSION Degenerative spondylosis as above, including moderate spinal canalnarrowing and moderate/severe left foraminal stenosis at C4-C5. There is severe leftforaminal stenosis at C5-C6 due to uncovertebral arthropathy. Thank you for letting us participate in the care of this patient. If youare a health care provider and have any questions regarding this report,please contact the number below. For patients who have questions please contactthe health care partner that requested your imaging first. Electronically signed by: Vineet Ruggiero DO [facility]([phone]), at 12/31/2023 4:30 PM Nicolasa H Chute ACCOUNTING SPECIALIST IMG MRI ORDERABLES documented in this encounter Visit Diagnoses Diagnosis Cervical radiculopathy Brachial neuritis or radiculitis nos documented in this encounter Care Teams Silk Screen Printer Relationship Specialty Start Date End Date Nicolasa Prince APRN [address] [place] [address] PCP - General Family Medicine 01/08/21 documented as of this encounter
--- OUTSIDE RECORDS SUMMARY | 2024-01-25 19:16 | XMS_ITS | Referral Summary ---
Author Organization [facility] Address [address] [place] [address] Care Team Providers Care Tobacco Warehouse Agent Name Role Phone Unavailable Primary Care Provider Unavailabl e Encounters Date Type Department Care Team Description 01/11/2024 Lab Requisition [facility] Pathology & Laboratory [address] [address] Outr Resulting Lab, Provider 11/17/2023 Lab Requisition [facility] Pathology & Laboratory [address] [address] Outr Resulting Lab, Provider from Last 3 Months Social History Tobacco Use Types Packs/Day Years Used Date Smoking Tobacco: Never Assessed Sex and Gender Information Value Date Recorded Sex Assigned at Not on file Gender Identity Not on file Sexual Orientation Not on file Plan of Treatment Not on file Procedures Procedure Name Priority Date/Time Associated Diagnosis Comments AFP TUMOR MARKER Routine 01/11/2024 11:0 0 EDT LYME AB Routine 11/16/2023 9:50 EDT from Last 3 Months Results * AFP TUMOR MARKER (01/11/2024 11:00 EDT) AFP Tumor Marker <2.5 <8.1 ng/mL 01/12/2024 9:52 EDT [facility] Comment: AFP Tumor Marker cannot be interpreted in females. ?? NOTE: Serum AFP concentrations should not be interpreted as absolute evidence for the presence or absence of malignant disease. Assayed on Siemens ADVIA Centaur XPT using chemiluminescent technology. ??Values obtained by using different assay methods cannot be used interchangeably. Blood VENOUS BLOOD / Unknown 01/11/2024 11:00 EDT 01/11/2024 17:37 EDT Provider Outr Resulting Lab CHEMISTRY & BLOOD GAS ORDERABLES Performing Organization Address City/[facility]/ZIP Co de Phone Number [facility] [address] [place] [address] * LYME AB (11/16/2023 9:50 EDT) Lyme Ab Negative Negative 11/18/2023 11:08 EDT [facility] Blood VENOUS BLOOD / Unknown 11/16/2023 9:50 EDT 11/17/2023 18:10 EDT Provider Outr Resulting Lab IMMUNOLOGY A ND SEROLOGY ORDERABLES Performing Organization Address City/[facility]/ZIP Co de Phone Number [facility] [address] [place] [address] from Last 3 Months
--- OUTSIDE RECORDS SUMMARY | 2024-01-25 19:16 | XMS_ITS | Encounter Summary ---
Author [facility] [place] [address] Care Team Providers Care Home Security Professional Name Role Phone Nicolasa Prince APRN Primary Care Provider +1- [phone] Encounter Details Date Type Department Care Team (Latest Contact Info) Description 03/30/2023 10:15 AM EST Laboratory Appointment Lab [address] [place] [phone] Primary biliary cholangitis; Hepatic cirrhosis, unspecified hepatic [...] hepatic cirrhosis type, unspecified whether ascites present AFP TUMOR MARKER Routine 03/30/2023 10:2 3 AM EST Primary biliary cholangitis Hepatic cirrhosis, unspecified hepatic cirrhosis type, unspecified whether ascites present PROTHROMBIN TIME Routine 03/30/2023 10:2 3 AM EST Primary biliary cholangitis Hepatic cirrhosis, unspecified hepatic cirrhosis type, unspecified whether ascites present CBC (WITH DIFF) Routine 03/30/2023 10:23 AM EST Primary biliary cholangitis Hepatic cirrhosis, unspecified hepatic cirrhosis type, unspecified whether ascites present COMPREHENSIVE METABOLIC PANEL Routine 03/30/2023 10:23 AM EST Primary biliary cholangitis Hepatic cirrhosis, unspecified hepatic cirrhosis type, unspecified whether ascites present documented in this encounter Results * (ABNORMAL) Differential, Automated (03/30/2023 10:23 AM EST) Neutrophil % 64.6 % [facility] Neutrophil Absolute 2.35 1.70 - 6.10 x10(3)/mc L [facility] Lymph % 22.9 % [facility] Lymphocytes Abs 0.8(L) 0.9 - 3.2 x10(3)/mc L [facility] Monocyte % 10.5 % [facility] Monocyte Abs 0.4 0.3 - 0.9 x10(3)/mc L [facility] Eos % 1.1 % [facility] Eosinophils Abs 0.0 0.0 - 0.4 x10(3)/mc L [facility] Basophil % 0.6 % [facility] Baso Absolute 0.0 0.0 - 0.1 x10(3)/mc L [facility] Immature Gran % 0.30 % [facility] Comment: Immature granulocytes(IG's)percentage and absolute count will include metamyelocytes, myelocytes, and promyelocytes. Blood smears from CBCs yielding IG's will be scanned manually for concordance. If this scan disagrees with the automated IG or if promyelocytes are noted, a manual differential will be performed. Immature Gran Absolute 0.01 0.00 - 0.04 x10(3)/mc L [facility] Blood 03/30/2023 10:2 3 AM EST 03/30/2023 10:31 AM EST Narrative Resulting Agency Comment Spec In Lab Irene Lara MD HEMATOLOGY ORDERABLE S [facility] [place] [address] * (ABNORMAL) Hemogram (03/30/2023 10:23 AM EST) White Blood Cell 3.6(L) 4.0 - 9.5 x10(3)/mc L [facility] Red Blood Cell 5.01 4.00 - 5.21 x10(6)/mc L [facility] Hemoglobin 15.8(H) 11.7 - 15.5 g/dL [facility] Hematocrit 46.6(H) 35.7 - 45.8 % [facility] Mean Cell Volume 93.0 82.6 - 94.4 fL [facility] Mean Cell Hemoglobin 31.5 27.1 - 32.0 pg [facility] Mean Cell Hemoglobin Concentration 33.9 31.7 - 35.0 g/dL [facility] Platelet 131(L) 145 - 357 x10(3)/mc L [facility] RDW Standard Deviation 44.9 37.0 - 46.0 fL [facility] RDW coefficient of variation 13.2 11.5 - 14.1 % [facility] Mean Platelet Volume 10.4 7.6 - 12.9 fL [facility] NRBC% auto 0.0 % [facility] NRBC Absolute 0.000 0.000 - 0.000 x10(3)/ L [facility] Blood 03/30/2023 10:2 3 AM EST 03/30/2023 10:31 AM EST Narrative Resulting Agency Comment Spec In Lab Irene Lara MD HEMATOLOGY ORDERABLE S [facility] [place] [address] * (ABNORMAL) Comprehensive metabolic panel (non-fasting) (03/30/2023 10:23 AM EST) Glucose 110 65 - 199 mg/dL [facility] Comment:Diabetes: >=200 mg/d L plus symptoms Blood Urea Nitrogen 20(H) 8 - 18 mg/dL [facility] Creatinine 0.82 0.70 - 1.20 mg/dL [facility] Sodium 140 135 - 145 mmol/L [facility] Potassium 4.1 3.5 - 5.0 mmol/L [facility] Comment: Please note: ??Patients with WBC >100,000 may have falsely elevated Potassium levels. ??For accurate Potassium quantification in these patients send serum separator tube (gold top) for subsequent determinations. ??Contact the Clinical Chemistry Laboratory if there are any questions. Chloride 105 98 - 107 mmol/L [facility] Carbon Dioxide 22 22 - 31 mmol/L [facility] Anion Gap 13 5 - 15 mmol/L [facility] Calcium 9.8 8.5 - 10.5 mg/dL [facility] Protein, Total 7.2 6.1 - 8.0 g/dL [facility] Albumin 4.4 3.2 - 5.2 g/dL [facility] Aspartate Aminotransferase 31(H) 0 - 30 unit/L [facility] Alanine Aminotransferase 24 0 - 30 unit/L [facility] Alkaline Phosphatase 64 35 - 105 unit/L [facility] Bilirubin, Total 0.7 0.2 - 1.3 mg/dL [facility] Est Glomerular Filtration Rate 77 >=60 mL/min/1. 73 m?? [facility] Comment: This patient's estimated GFR was [...] In Lab Irene Lara MD CHEMISTRY ORDERABLES [facility] [place] [address] * Prothrombin Time (03/30/2023 10:23 AM EST) Prothrombin Time 12.0 9.4 - 12.5 sec [facility] International Normalization Ratio 1.1 [facility] Comment: An INR <2.0 indicates adequate [...] MD HEMATOLOGY ORDERABLE S Performing Organization Address City/[facility]/ZIP Co de Phone Number [facility] [place] [address] * AFP tumor marker (03/30/2023 10:23 AM EST) Pathologist [facility] Alpha Fetoprotein 2.8 <=8.3 ng/mL [facility] Comment: This result was generated using a Mendoza Jonathan immunoassay. ??Results obtained from other methods or manufacturers cannot be used interchangeably with this method. Blood 03/30/2023 10:2 3 AM EST 03/30/2023 10:30 AM EST Narrative Resulting Agency Comment Spec In Lab Irene Lara MD CHEMISTRY ORDERABLES Performing Organization Address City/[facility] Co de Phone Number [facility] [place] [address] documented in this encounter Visit Diagnoses Diagnosis Primary biliary cholangitis Hepatic cirrhosis, unspecified hepatic cirrhosis type, unspecified whether ascites present documented in this encounter Care Teams Home Security Professional Relationship Specialty Start Date End Date Nicolasa Prince APRN [address] [place] [address] PCP - General Family Medicine 01/08/21 documented as of this encounter
--- OUTSIDE RECORDS SUMMARY | 2024-01-25 19:16 | XMS_ITS | Encounter Summary ---
Author Organization [facility] Address [address] [place] [address] Care Team Providers Care Rivet Hole Machine Operator Name Role Phone Unavailable Primary Care Provider Unavailabl e Encounter Details Date Type Department Care Team (Late st Contact Info) Description 03/01/2023 Lab Requisition [facility] Pathology & [place] [address] Outr Resulting Lab, Provider Social History Tobacco [...] Marker 2.7 <8.1 ng/mL 03/03/2023 8:36 EDT [facility] Comment: AFP Tumor Marker [...] Resulting Lab CHEMISTRY & BLOOD GAS ORDERABLES [facility] [address] [place] [address] documented in this encounter Visit Diagnoses Not on filedocumented in this encounter
--- OUTSIDE RECORDS SUMMARY | 2024-01-25 19:16 | XMS_ITS | Encounter Summary ---
Author Organization [facility] [place] [address] Care Team Providers Care Clinical Documentation Spec Name Role Phone Nicolasa Prince APRN Primary Care Provider +1- [phone] Reason for Visit * Reason Comments Medication Refill Encounter Details Date Type Department Care Team (Late st Contact Info) Description 11/19/2023 Refill [place] [address] Irene Lara MD [facility] [place] [address] Autoimmune hepatitis Social History Tobacco Use Types [...] hepatitis documented in this encounter Care Teams Clinical Documentation Spec Relationship Specialty Start Date End Date Nicolasa Prince APRN [address] [place] [address] PCP - General Family Medicine 01/08/21 documented as of this encounter
--- OUTSIDE RECORDS SUMMARY | 2024-01-25 19:16 | XMS_ITS | Encounter Summary ---
Author Organization [place] [address] Care Team Providers Care Chief Clinical Officer Name Role Phone Nicolasa Prince APRN Primary Care Provider +1- [phone] Reason for Visit * Reason Onset Date Comments Appointment 06/24/2023 US/Abdomen Encounter Details Date Type Department Care Team (Late st Contact Info) Description 06/24/2023 [place] [address] Gisele Jim RN Appointment (US/Abdomen) [...] on filedocumented in this encounter Care Teams Chief Clinical Officer Relationship Specialty Start Date End Date Nicolasa Prince APRN [address] [address] PCP - General Family Medicine 01/08/21 documented as of this encounter
--- OUTSIDE RECORDS SUMMARY | 2024-01-25 19:16 | XMS_ITS | Encounter Summary ---
Author Organization [facility] [place] [address] Care Team Providers Care Electronic Typesetting Machine Operator Name Role Phone Nicolasa Prince APRN Primary Care Provider +1- [phone] Reason for Visit * Auth/Cert (Routine) Specialty Diagnoses / Procedures Referred By Minh t Referred To Contact Diagnoses Encounter for screening for malignant neoplasm of colon 6 month Procedures PRO COLONOSCOPY, DIAGNOSTIC PRO COLONOSCOPY, BIOPSY PRO COLONOSCOPY, REMV LESN, SNARE PRO ANES, LWR INTESTINE, SCREENING COLONOSCOPY COLONOSCOPY,SCREENING (WRVU 3.26) Mateo Carlson MD [facility] [place] [address] [facility] Referral ID Status Reason Start Date Expiration Date Visits Re quested Visits Authorized [id number] 1 1 Encounter Details Date Type Department Care Team (Latest Contact Info) Description 02/19/2023 12:41 PM EDT - 02/19/2023 3:29 PM EDT Hospital Encounter [place] [address] Mateo Carlson MD [facility] [place] [address] Discharge Disposition: Home Social History Tobacco Use [...] occurs, please contact your Doctor. Please call [phone] before 8pm Mon-Fri with problems, questions or concerns. If you call after 8pm or on weekends, call the Hospital at [phone] and ask to speak to the Methods Time Analyst recreation specialist and the screener operator will contact that person for you. When should you call for help? Call [phone] anytime you think you may need emergency [...] After Visit Summary and more online at [email or web address] If you would like to provide feedback [...] cost to you. Content Version: 12.2 ?? [id number] [employer]. Care instructions adapted under license by [facility]. If you have questions about a medical condition or this instruction, always ask your healthcare professional. [employer] disclaims any warranty or liability for your [...] as of this encounter H&P Notes * Mateo Carlson MD - 02/19/2023 1:45 PM EDT Patient Name: Cookie Salgado Patient Age: 72 y.o. Birthdate: 1950 Admit date: 02/19/2023 Attending Physician: Mateo Carlson MD Gastroenterology and Hepatology Pre-Procedure History and Physical Exam Procedure: Colonoscopy: Indication: f/u piecemeal polypectomy Patient Active Problem List Diagnosis Code Atherosclerotic heart disease of [place] coronary artery without angina pectoris I25.10 EXAM: [...] 02/19/2023 2:32 PM EDT Colonoscopy, Gauri Zavala ([id number]) 02/19/2023 1:54 PM EDT 6 month COLONOSCOPY Routine 02/19/2023 1:47 PM EDT documented in this encounter Results * Surgical Pathology Report (02/19/2023 2:32 PM EDT) Final Diagnosis [id number] ? Location: 4T; EA12; A The signing pathologist has (i) examined the relevant preparation(s) for the specimen(s) and (ii) rendered or confirmed the diagnosis(es). . ?Surgical Pathology DIAGNOSIS A - Ascending colon polyps 2mm, 1mm, resection: - ??Fragments of tubular adenoma. B - Rectal polyp 1mm, resection: - ??Hyperplastic polyp. CR-PX Electronically signed by: ?Per LUTHER, Arpit Verified: ??03/01/2023 16:31 ??Pathologist Performed at: ??-[facility] Dept. of Pathology, [place] [address] Building Admin: Stefan Min MD, FCAP, ??CLIA Certificate: [id number] SPECIMEN(S) SUBMITTED A - ascending colon polyps [...] labeled B1. ??sdy 03/01/2023 4:31 PM EDT [facility] GI Biopsy 02/19/2023 2:32 PM EDT 02/19/2023 2:32 PM EDT GI Biopsy 02/19/2023 2:32 PM EDT 02/19/2023 2:32 PM EDT Mateo Carlson MD PATHOLOGY/[place] [address] [place] [address] * Specimen to Pathology (02/19/2023 2:32 PM EDT) AP Specimen 02/19/2023 2:32 PM EDT 02/19/2023 2:32 PM EDT Narrative [facility] - 02/19/2023 2:32 PM EDT Specimen requisition ordered. ??Separate Pathology report to follow Mateo Carlson MD PATHOLOGY/CYTOLOGY O MEENU Performing Organization Address [facility] [place] [address] * Specimen to Pathology (02/19/2023 2:32 PM EDT) AP Specimen 02/19/2023 2:32 PM EDT 02/19/2023 2:32 PM EDT Narrative [facility] - 02/19/2023 2:32 PM EDT Specimen requisition ordered. ??Separate Pathology report to follow Mateo Carlson MD PATHOLOGY/CYTOLOGY O MEENU Performing Organization Address [facility] [place] [address] * COLONOSCOPY (02/19/2023 1:47 PM EDT) COLONOSCOPY [facility] Endoscopy Procedure Date: 02/19/2023 1:47 PM ? Patient Name: Cookie Salgado ? Date of : 1950 ? Age: 72 ? Order #: [id number] ? Instrument Name: [id number] ? Procedure: ? Colonoscopy Indications: ? Follow-up for history of ? adenomatous polyps in the colon Providers: ? Mateo Carlson MD, Damon Jean ? Lucy Archer [...] ? was evaluated using the BBPS ? ([place] Bowel Preparation Scale) ? with scores of: [...] Procedure Code(s): ? --- Professional --- ? 64053, Colonoscopy, flexible; with ? removal of tumor(s), polyp(s), or ? other lesion(s) by snare technique CPT copyright 2021 [employer]. All rights reserved. The codes documented in this report are preliminary and upon business office specialist review may be revised to meet current compliance requirements. Attending Participation: ? I personally performed the entire procedure. ? Mateo Carlson MD _ Mateo Carlson MD 02/19/2023 2:36:53 PM This report has been signed electronically. Number of Addenda: 0 Note Initiated On: 02/19/2023 1:47 PM PROVATION 02/19/2023 1:47 PM EDT Nicolasa Prince MANAGER CONTROL GENERAL SURGICAL O RDERABLES PROVATION documented in [...] Damon Archer RN)1401 (Given - Provider: Damon Archer, RN)1404 (Given - Provider: Damon Archer RN)1409 (Given - Provider: Damon Archer RN) midazolam (pf) (Versed) (1 mg/mL) multi-dose injection (CANCELED) PRN, Starting on Wed02/19/23 at 1358, Until Wed02/19/23 at 1729, Intra-Operative (Intra-Procedure), Routine 1358 (Given - Provid er: Damon Archer RN)1401 (Given - Provider: Damon Archer RN)1404 (Given - Provider: Damon Archer, RN)1409 (Given - Provider: Damon Archer RN) documented in this encounter Care Teams Electronic Typesetting Machine Operator Relationship Specialty Start Date End Date Nicolasa Prince, MANAGER CONTROL [address] [place] [address] PCP - General Family Medicine 01/08/21 documented as of this encounter
--- OUTSIDE RECORDS SUMMARY | 2024-01-25 19:16 | XMS_ITS | Encounter Summary ---
Author Organization [facility] Address [facility] [place] [address] Care Team Providers Care Machine Design Engineer Name Role Phone Nicolasa Prince YULIA Primary Care Provider +1- [phone] Encounter Details Date Type Department Care Team (Latest Contact Info) Description 09/28/2023 10:06 AM EDT - 09/28/2023 11:59 PM EDT Hospital Encounter [place] [phone] Carolynn Lamar MD [facility] [place] [address] Biliary cirrhosis Discharge Disposition: Home Social History [...] MOUTH TWICE DAILY 180 tablet 08/23/2023 11/20/2023 fenofibrate (Tricor) 145 mg tabletIndications:Autoi mmune hepatitis TAKE 1 TABLET BY MOUTH DAILY 90 tablet 3 03/16/2023 12/08/2023 documented as of this encounter Plan of Treatment Not on file documented as of this encounter Procedures Procedure Name Priority Date/Time Associated Diagnosis Comments US ABDOMEN LIMITED HEPATOLOGY PROTOCOL Routine 09/28/2023 10:54 AM EDT Biliary cirrhosis documented in this encounter Results * US Abdomen Limited Hepatology Protocol (09/28/2023 10:54 AM EDT) WORKSTATION ID [id number] RAD Anatomical Region Laterality Modality Abdomen Ultrasound [...] Electronically signed by: Fiordaliza Fabian MD, [facility] ([phone]), at 09/28/2023 11:34 AM Thank you for letting us participate in the care of this patient. If you are a health care provider and have any questions regarding this report, please contact the number above. For patients who have questions, please contact the health care transport nurse that requested your imaging first. ?Fiordaliza Fabian E [employer] Lead Electronically Signed Final Report ?? 09/28/2023 11:41 am Narrative 09/28/2023 11:42 AM EDT Abdominal ? (Signed Final 09/28/2023 11:41 am) PATIENT INFO: ID #: ? [id number] ?: ??[birth year] (72 yrs)(F) Name: ? PREMA LEATHA ?Visit Date: 09/28/2023 10:34 am PERFORMED BY: Attending: ?Caren LUTHER, Fiordaliza Prado Resident: ? Madhavi Thomas MD Performed By: ? Joanna Bronson RDMS Referred By: ?CAROLYNN LAMAR Location: ? [place] SERVICE(S) PROVIDED: [facility] - Hepatology Protocol - Abdominal ?39999 Limited Survey Single Organ or Quadrant - [id number] INDICATIONS: cirrhosis, screen for hcc COMPARISON: US [...] 09/28/2023 11:41 am) PATIENT INFO: ID #: [id number] : [birth year] (72 yrs)(F) Name: PREMA SALGADO Visit Date: 09/28/2023 10:34 am PERFORMED BY: Attending: Fiordaliza Fabian MD Resident: Madhavi Thomas MD Performed By: Joanna Bronson RDMS Referred By: CAROLYNN LAMAR Location: [place] SERVICE(S) PROVIDED: [facility] - Hepatology Protocol - Abdominal 99563 Limited Survey Single Organ or Quadrant - [id number] INDICATIONS: cirrhosis, screen for hcc COMPARISON: US [...] Electronically signed by: Fiordaliza Fabian MD, [facility] ([phone]), at 09/28/2023 11:34 AM Thank you for letting us participate in the care of this patient. If you are a health care provider and have any questions regarding this report, please contact the number above. For patients who have questions, please contact the health care transport nurse that requested your imaging first. GULSHAN Chiang [employer] Lead Electronically Signed Final Report 09/28/2023 11:41 am Carolynn Lamar MD IMG GEN ORDERABLE S documented in this encounter Visit Diagnoses Diagnosis Biliary cirrhosis documented in this encounter Care Teams Machine Design Engineer Relationship Specialty Start Date End Date Nicolasa Prince APRN [address] [place] [address] PCP - General Family Medicine 01/08/21 documented as of this encounter
--- OUTSIDE RECORDS SUMMARY | 2024-01-25 19:16 | XMS_ITS | Encounter Summary ---
Author Organization [facility] [place] [address] Care Team Providers Care Service Desk Agent Name Role Phone Nicolasa Prince APRN Primary Care Provider +1- [phone] Encounter Details Date Type Department Care Team (Late st Contact Info) Description 09/30/2022 1:00 PM EDT Office [place] [address] Irene Lamar MD [facility] [place] [address] Primary biliary cholangitis; Hepatic cirrhosis, unspecified hepatic [...] PBC/AIH. Her original diagnosis was made in [place] and she was managed by a band tumbler at [facility]. Her [...] normal since approximately 2016. She moved to [place] in 2019.. Living with her two brothers. [...] Vitals: 09/30/22 1248 BP: 128/72 BP Location ([facility]): Right arm Patient Position: Sitting BP Cuff [...] this in 3 months. Orders sent to [facility] PCP considering ozempic for diabetes, I have no concerns about this from a liver standpoint and support its use. Time spent with patient: 25 min Time spent reviewing records, documenting- all today : 7 min Irene Lamar MD Section of Gastroenterology & Hepatology [address] [place] [address] Cc: Nicolasa Prince APRN SURGICAL PATHOLOGY REPORT ? Patient: PREMA SALGADO ?MR #: [id number] ?Submitted by: Elie Moreno MD FINAL DIAGNOSIS [...] the ductules cannot be definitively distinguished from [place] bile ducts. ??There is patchy periportal hepatocellular [...] had a prior liver biopsy reviewed at [facility] (see accession number [id number]), although the slides are not available for direct comparison at this time. ??However, based on the microscopic description, it appears that fibrosis may have progressed. documented in this encounter Plan of Treatment Not on file documented as of this encounter Results * AFP tumor marker (03/30/2023 10:23 AM EST) Alpha Fetoprotein 2.8 <=8.3 ng/mL [facility] Comment: This result was generated using a Mendoza Jonathan immunoassay. ??Results obtained from other methods or manufacturers cannot be used interchangeably with this method. Blood 03/30/2023 10:2 3 AM EST 03/30/2023 10:30 AM EST Narrative Resulting Agency Comment Spec In Lab Irene Lamar MD CHEMISTRY ORDERABLES Performing Organization Address [facility] Co de Phone Number [facility] [place] [address] * Prothrombin Time (03/30/2023 10:23 AM EST) Prothrombin Time 12.0 9.4 - 12.5 sec [facility] International Normalization Ratio 1.1 [facility] Comment: An INR <2.0 [...] MD HEMATOLOGY ORDERABLE S Performing Organization Address [facility] Co de Phone Number [facility] [place] [address] * (ABNORMAL) Comprehensive metabolic panel (non-fasting) (03/30/2023 10:23 AM EST) Glucose 110 65 - 199 mg/dL [facility] Comment:Diabetes: >=200 mg/d L plus symptoms Blood Urea Nitrogen 20(H) 8 - 18 mg/dL [facility] Creatinine 0.82 0.70 - 1.20 mg/dL [facility] Sodium 140 135 - 145 mmol/L [facility] Potassium 4.1 3.5 - 5.0 mmol/L [facility] Comment: Please note: ??Patients with WBC >100,000 may have falsely elevated Potassium levels. ??For accurate Potassium quantification in these patients send serum separator tube (gold top) for subsequent determinations. ??Contact the Clinical Chemistry Laboratory if there are any questions. Chloride 105 98 - 107 mmol/L [facility] Carbon Dioxide 22 22 - 31 mmol/L [facility] Anion Gap 13 5 - 15 mmol/L [facility] Calcium 9.8 8.5 - 10.5 mg/dL [facility] Protein, Total 7.2 6.1 - 8.0 g/dL [facility] Albumin 4.4 3.2 - 5.2 g/dL [facility] Aspartate Aminotransferase 31(H) 0 - 30 unit/L [facility] Alanine Aminotransferase 24 0 - 30 unit/L [facility] Alkaline Phosphatase 64 35 - 105 unit/L [facility] Bilirubin, Total 0.7 0.2 - 1.3 mg/dL [facility] Est Glomerular Filtration Rate 77 >=60 mL/min/1. 73 m?? [facility] Comment: This patient's estimated [...] [place] Co de Phone Number [facility] [place] [address] * US Abdomen Limited Hepatology Protocol (03/30/2023 [...] who have questions, please contact the health cattle care worker that requested your imaging first. ? Ke Jay, Staff Physician Electronically Signed Final Report ?? 03/30/2023 12:27 pm Narrative 03/30/2023 12:28 PM EST Abdominal ? (Signed Final 03/30/2023 12:27 pm) PATIENT INFO: ID #: ? [id number] ?: ??[birth year] (72 yrs)(F) Name: ? PREMA SALGADO ?Visit Date: 03/30/2023 09:52 am PERFORMED BY: Attending: ?Pierre LUTHER, Ke Conklin Resident: ? Joseph LUTHER, Ada Barrow Performed By: ? Elba Milian RDMS Referred By: ?IRENE LAMAR Location: ? [place] SERVICE(S) PROVIDED: [facility] - Hepatology Protocol - Abdominal ?43748 Limited Survey Single Organ or Quadrant - [id number] INDICATIONS: cirrhosis, screen for hcc COMPARISON: US: [...] 03/30/2023 12:27 pm) PATIENT INFO: ID #: [id number] : [birth year] (72 yrs)(F) Name: PREMA SALGADO Visit Date: 03/30/2023 09:52 am PERFORMED BY: Attending: Ke Jay MD Resident: Ada Ruiz MD Performed By: Elba Milian RDMS Referred By: IRENE LAMAR Location: [place] [facility] Protocol - Abdominal 78466 Limited Survey Single Organ or Quadrant - [id number] INDICATIONS: cirrhosis, screen for hcc COMPARISON: US: [...] who have questions, please contact the health cattle care worker that requested your imaging first. [...] present documented in this encounter Care Teams Service Desk Agent Relationship Specialty Start Date End Date Nicolasa Prince APRN [address] [place] [address] PCP - General Family Medicine 01/08/21 documented as of this encounter
--- OUTSIDE RECORDS SUMMARY | 2024-01-25 19:16 | XMS_ITS | Encounter Summary ---
Author Organization [facility] Address [address] [place] [address] Care Team Providers Care Jacquard Lace Weaver Name Role Phone Unavailable Primary Care Provider Unavailabl e Encounter Details Date Type Department Care Team (Late st Contact Info) Description 11/17/2023 Lab Requisition [facility] Pathology & Laboratory Medicine - [facility] [address] [place] [address] Outr Resulting Lab, Provider Social History Tobacco [...] Lyme Ab Negative Negative 11/18/2023 11:08 EDT [facility] Blood VENOUS BLOOD / Unknown 11/16/2023 9:50 EDT 11/17/2023 18:10 EDT Provider Outr Resulting Lab IMMUNOLOGY A ND SEROLOGY ORDERABLES [facility] [address] [place], [place] [address] documented in this encounter Visit Diagnoses Not on filedocumented in this encounter
--- OUTSIDE RECORDS SUMMARY | 2024-01-25 19:16 | XMS_ITS | Encounter Summary ---
[facility] [place] [address] Care Team Providers Care Teacher Home Therapy Name Role Phone Nicolasa Prince APRN Primary Care Provider +1- [phone] Encounter Details Date Type Department Care Team [...] on filedocumented in this encounter Care Teams Teacher Home Therapy Relationship Specialty Start Date End Date Nicolasa Prince APRN [address] [place] [address] PCP - General Family Medicine 01/08/21 documented as of this encounter
--- OUTSIDE RECORDS SUMMARY | 2024-01-25 19:16 | XMS_ITS | Encounter Summary ---
Author Organization [facility] [place] [address] Care Team Providers Care Die Finisher Forging Name Role Phone Nicolasa Prince APRN Primary Care Provider +1- [phone] Encounter Details Date Type Department Care Team (Late st Contact Info) Description 11/02/2022 External Results Gastroenterology at [facility] [place] [address] Irene Lara MD [facility] [place] [address] Social History Tobacco Use Types Packs/Day Years [...] / CMP / Thyroid External Results (10/30/2022) Protein, Total 8.0 Albumin 3.8 Bilirubin, Total 1.1 Alkaline Phosphatase 86 Aspartate Aminotransferase 32 Alanine Aminotransferase 31 Historical Provider EXTERNAL LAB ISRAEL BEEBE documented in this encounter Visit Diagnoses Not on filedocumented in this encounter Care Teams Die Finisher Forging Relationship Specialty Start Date End Date Nicolasa Prince APRN [address] [place] [address] PCP - General Family Medicine 01/08/21 documented as of this encounter
--- OUTSIDE RECORDS SUMMARY | 2024-01-25 19:16 | XMS_ITS | Encounter Summary ---
Author Organization [facility] [place] [address] Care Team Providers Care Hair Clipper Power Name Role Phone Nicolasa Prince APRN Primary Care Provider +1- [phone] Reason for Visit * Reason Comments Medication Refill Encounter Details Date Type Department Care Team (Late st Contact Info) Description 08/23/2023 [place] [address] Irene Lara MD [facility] [place] [address] Autoimmune hepatitis Social History Tobacco Use Types [...] hepatitis documented in this encounter Care Teams Hair Clipper Power Relationship Specialty Start Date End Date Nicolasa Prince APRN [address] [place] [address] PCP - General Family Medicine 01/08/21 documented as of this encounter
--- OUTSIDE RECORDS SUMMARY | 2024-01-25 19:16 | XMS_ITS | Encounter Summary ---
Author Organization [facility] [place] [address] Care Team Providers Care Project Engineering Manager Name Role Phone Nicolasa Prince APRN Primary Care Provider +1- [phone] Encounter Details Date Type Department Care Team (Late st Contact Info) Description 03/30/2023 11:30 AM EST Office Visit [place] [address] Carolynn Lamar MD [facility] [place] [address] Biliary cirrhosis Social History Tobacco Use Types [...] in this encounter Progress Notes * Carolynn Lamra MD - 03/30/2023 11:30 AM EST Gastroenterology [...] PBC/AIH. Her original diagnosis was made in [place] and she was managed by a manpower development manager at [facility]. Her [...] Lamar MD Section of Gastroenterology & Hepatology [address] [place], [place] [address] Cc: Nicolasa Prince APRN SURGICAL PATHOLOGY REPORT Patient: PREMA SALGADO MR #: [id number] Submitted by: Elie Moreno MD FINAL DIAGNOSIS [...] the ductules cannot be definitively distinguished from [place] bile ducts. There is patchy periportal hepatocellular [...] had a prior liver biopsy reviewed at [facility] (see accession number [id number]), although the slides are not available for direct comparison at this time. However, based on the microscopic description, it appears that fibrosis may have progressed. documented in this encounter Plan of Treatment Not on file documented as of this encounter Results * US Abdomen Limited Hepatology Protocol (09/28/2023 10:54 AM EDT) WORKSTATION ID [id number] DH RAD Anatomical Region Laterality Modality Abdomen [...] AM Electronically signed by: Fiordaliza Fabian MD, [facility] ([phone]), at 09/28/2023 11:34 AM Thank you for letting us participate in the care of this patient. If you are a health care provider and have any questions regarding this report, please contact the number above. For patients who have questions, please contact the health primary care sales representative that requested your imaging first. ?Fiordaliza Fabian, [facility] Veneer Drier Tailer Electronically Signed Final Report ?? 09/28/2023 11:41 am Narrative 09/28/2023 11:42 AM EDT Abdominal ? (Signed Final 09/28/2023 11:41 am) PATIENT INFO: ID #: ? [id number] ?: ??[birth year] (72 yrs)(F) Name: ? PREMA SALGADO ?Visit Date: 09/28/2023 10:34 am PERFORMED BY: Attending: ?Caren LUTHER, Firodaliza Prado Resident: ? Madhavi Thomas MD Performed By: ? Joanna Bronson RDMS Referred By: ?CAROLYNN LAMAR Location: ? [place] SERVICE(S) PROVIDED: [facility] - Hepatology Protocol - Abdominal ?94072 Limited Survey Single Organ or Quadrant - [id number] INDICATIONS: cirrhosis, screen for hcc COMPARISON: US [...] 09/28/2023 11:41 am) PATIENT INFO: ID #: [id number] : [birth year] (72 yrs)(F) Name: PREMA SALGADO Visit Date: 09/28/2023 10:34 am PERFORMED BY: Attending: Fiordaliza Fabian MD Resident: Madhavi Thomas MD Performed By: Joanna Bronson RDMS Referred By: CAROLYNN LAMAR Location: [facility] SERVICE(S) PROVIDED: [facility] - Hepatology Protocol - Abdominal 37245 Limited Survey Single Organ or Quadrant - [id number] INDICATIONS: cirrhosis, screen for hcc COMPARISON: US [...] AM Electronically signed by: Fiordaliza Fabian MD, [facility] ([phone]), at 09/28/2023 11:34 AM Thank you for letting us participate in the care of this patient. If you are a health care provider and have any questions regarding this report, please contact the number above. For patients who have questions, please contact the health primary care sales representative that requested your imaging first. Fiordaliza Fabian E Veneer Drier Tailer Electronically Signed Final Report 09/28/2023 11:41 am Carolynn Lamar MD IMG US GEN ORDERABLE S documented in this encounter Visit Diagnoses Diagnosis Biliary cirrhosis Biliary cirrhosis documented in this encounter Care Teams Project Engineering Manager Relationship Specialty Start Date End Date Nicolasa Prince APRN [address] [address] PCP - General Family Medicine 01/08/21 documented as of this encounter
--- OUTSIDE RECORDS SUMMARY | 2024-01-25 19:16 | XMS_ITS | Encounter Summary ---
Author Organization [facility] [place] [address] Care Team Providers Care Boilermaker Central Steam Plant Name Role Phone Nicolasa Prince APRN Primary Care Provider +1- [phone] Encounter Details Date Type Department Care Team (Late st Contact Info) Description 11/30/2022 External Results [place] [address] Irene Lara MD [facility] [address] Social History Tobacco Use Types Packs/Day Years [...] / CMP / Thyroid External Results (11/27/2022) White Blood Cell 3.11 Red Blood Cell 5.14 Hemoglobin 16.1 Hematocrit 47.8 Mean Cell Volume 93.0 Platelet 132 Sodium 140 Potassium 4.5 Chloride 104 Carbon Dioxide 29 Blood Urea Nitrogen 30 Creatinine 1.1 Est Glomerular Filtration Rate 54.39 Glucose 172 Calcium 9.7 Protein, Total 7.7 Albumin 3.6 Bilirubin, Total 0.8 Alkaline Phosphatase 93 Aspartate Aminotransferase 27 Alanine Aminotransferase 28 Historical Provider MD EXTERNAL LAB ISRAEL BEEBE documented in this encounter Visit Diagnoses Not on filedocumented in this encounter Care Teams Boilermaker Central Steam Plant Relationship Specialty Start Date End Date Nicolasa Prince APRN [address] [place] [address] PCP - General Family Medicine 01/08/21 documented as of this encounter
--- OUTSIDE RECORDS SUMMARY | 2024-01-25 19:16 | XMS_ITS | Encounter Summary ---
Author Organization [facility] [place] [address] Care Team Providers Care Flower Grader Name Role Phone Nicolasa Prince APRN Primary Care Provider +1- [phone] Encounter Details Date Type Department Care Team (Late st Contact Info) Description 12/13/2023 [facility] [place] [address] Jasmin Porras Social History Tobacco Use Types Packs/Day Years [...] on filedocumented in this encounter Care Teams Flower Grader Relationship Specialty Start Date End Date Nicolasa Prince APRN [address] [place] [address] PCP - General Family Medicine 01/08/21 documented as of this encounter
--- OUTSIDE RECORDS SUMMARY | 2024-01-25 19:16 | XMS_ITS | Encounter Summary ---
Author Organization [facility] [address] Care Team Providers Care Telegraph And Teletype Operator Name Role Phone Nicolasa Prince APRN Primary Care Provider +1- [phone] Reason for Visit * Auth/Cert (Routine) Specialty Diagnoses / Procedures Referred By Contkolby t Referred To Contact Diagnoses Encounter for screening for malignant neoplasm of colon 6 month Procedures PRO COLONOSCOPY, DIAGNOSTIC PRO COLONOSCOPY, BIOPSY PRO COLONOSCOPY, REMV LESN, SNARE PRO ANES, LWR INTESTINE, SCREENING COLONOSCOPY COLONOSCOPY,SCREENING (WRVU 3.26) Elin Carlson MD [facility] [place] [address] [facility] Referral ID Status Reason Start Date Expiration Date Visits Re quested Visits Authorized [id number] 1 1 Encounter Details Date Type Department Care Team (Late st Contact Info) Description 02/19/2023 1:45 PM EDT - 02/19/2023 2:30 PM EDT [place] [address] Elin Carlson MD [facility] [place] [address] COLONOSCOPY, POLYPECTOMY, REMOVAL LESION BY SNARE (WRVU [...] occurs, please contact your Doctor. Please call [phone] before 8pm Mon-Fri with problems, questions or concerns. If you call after 8pm or on weekends, call the Hospital at [phone] and ask to speak to the Solderer Torch motors and controls tester and the gas station operator will contact that person for you. When should you call for help? Call [phone] anytime you think you may need emergency [...] After Visit Summary and more online at [email or web address] If you would like to provide [...] cost to you. Content Version: 12.2 ?? [id number] [employer]. Care instructions adapted under license by [facility]. If you have questions about a medical condition or this instruction, always ask your healthcare professional. [employer] disclaims any warranty or liability for your [...] List Diagnosis Code Atherosclerotic heart disease of [place] coronary artery without angina pectoris I25.10 EXAM: [...] 02/19/2023 2:32 PM EDT Colonoscopy, Gauri Zavala ([id number]) 02/19/2023 1:54 PM EDT 6 month COLONOSCOPY Routine 02/19/2023 1:47 PM EDT documented in this encounter Results * Surgical Pathology Report (02/19/2023 2:32 PM EDT) Final Diagnosis [id number] ? Location: 4T; EA12; A The signing pathologist has (i) examined the relevant preparation(s) for the specimen(s) and (ii) rendered or confirmed the diagnosis(es). . ?Surgical Pathology DIAGNOSIS A - Ascending colon polyps 2mm, 1mm, resection: - ??Fragments of tubular adenoma. B - Rectal polyp 1mm, resection: - ??Hyperplastic polyp. CR-PX Electronically signed by: ?Per LUTHER, Arpit Verified: ??03/01/2023 16:31 ??Pathologist Performed at: ??-[facility] Dept. of Pathology, [place] [address] Welding Equipment Repairer Supervisor: Stefan Min MD, FCAP, ??CLIA Certificate: [id number] SPECIMEN(S) SUBMITTED A - ascending colon polyps [...] labeled B1. ??sdy 03/01/2023 4:31 PM EDT [facility] GI Biopsy 02/19/2023 2:32 PM EDT 02/19/2023 2:32 PM EDT GI Biopsy 02/19/2023 2:32 PM EDT 02/19/2023 2:32 PM EDT Elin Carlson MD PATHOLOGY/CYTOLOGY O RDERABLES Performing Organization Address [facility] [place] [address] [facility] [place] [address] * Specimen to Pathology (02/19/2023 2:32 PM EDT) AP Specimen 02/19/2023 2:32 PM EDT 02/19/2023 2:32 PM EDT Narrative [facility] - 02/19/2023 2:32 PM EDT Specimen requisition ordered. ??Separate Pathology report to follow Elin Carlson MD PATHOLOGY/CYTOLOGY O MEENU Performing Organization Address [facility] [place] [place] [address] * Specimen to Pathology (02/19/2023 2:32 PM EDT) AP Specimen 02/19/2023 2:32 PM EDT 02/19/2023 2:32 PM EDT Narrative [facility] - 02/19/2023 2:32 PM EDT Specimen requisition ordered. ??Separate Pathology report to follow Elin Carlson MD PATHOLOGY/CYTOLOGY O MEENU Performing Organization Address [facility] [place] [address] * COLONOSCOPY (02/19/2023 1:47 PM EDT) COLONOSCOPY [facility] Endoscopy Procedure Date: 02/19/2023 1:47 PM ? Patient Name: Cookie Salgado ? Date of : 1950 ? Age: 72 ? Order #: [id number] ? Instrument Name: [id number] ? Procedure: ? Colonoscopy Indications: ? Follow-up [...] ? was evaluated using the BBPS ? (Hydes Bowel Preparation Scale) ? with scores of: [...] Procedure Code(s): ? --- Professional --- ? 67532, Colonoscopy, flexible; with ? removal of tumor(s), polyp(s), or ? other lesion(s) by snare technique CPT copyright 2021 [employer]. All rights reserved. The codes documented in this report are preliminary and upon pneumatic tube repairer review may be revised to meet current compliance requirements. Attending Participation: ? I personally performed the entire procedure. ? Elin Carlson MD _ Elin Carlson MD 02/19/2023 2:36:53 PM This report has been signed electronically. Number of Addenda: 0 Note Initiated On: 02/19/2023 1:47 PM PROVATION 02/19/2023 1:47 PM EDT Nicolasa Prince SULFUR CHLORIDE OPERATOR GENERAL SURGICAL O RDERABLES PROVATION documented in [...] RN) documented in this encounter Care Teams Telegraph And Teletype Operator Relationship Specialty Start Date End Date Nicolasa Prince APRN [address] [place] [address] PCP - General Family Medicine 01/08/21 documented as of this encounter
--- OUTSIDE RECORDS SUMMARY | 2024-01-25 19:16 | XMS_ITS | Encounter Summary ---
Author Organization [facility] Address [facility] [place] [address] Care Team Providers Care Commercial Sales Representative Name Role Phone Nicolasa Pricne APRN Primary Care Provider +1- [phone] Encounter Details Date Type Department Care Team (Latest Contact Info) Description 08/17/2022 10:14 AM EDT - 08/17/2022 11:59 PM EDT Hospital En[place] [phone] Irene Lamar MD [facility] [place] [address] Autoimmune hepatitis; Primary biliary cholangitis; Hepatic cirrhosis, [...] signed by: Kashmir Lindsay MD, [facility] ([phone]), at 08/17/2022 2:04 PM Thank you for letting us participate in the care of this patient. If you are a health care provider and have any questions regarding this report, please contact the number above. For patients who have questions, please contact the health post anesthesia care unit nurse that requested your imaging first. ?Kashmir Lindsay, Staff Physician Electronically Signed Final Report ?? 08/17/2022 02:12 pm Narrative 08/17/2022 2:12 PM EDT Abdominal ? (Signed Final 08/17/2022 02:12 pm) PATIENT INFO: ID #: ? [id number] ?: ??[birth year] (71 yrs)(F) Name: ? PREMA SALGADO ?Visit Date: 08/17/2022 10:53 am PERFORMED BY: Attending: ?Neftali LUTHER, Kashmir Resident: ? Milagros LUTHER, James Curtis Performed By: ? Angelina Crystal RDMS Referred By: ?IRENE LAMAR Location: ? [place] [facility] Protocol - Abdominal ?82463 Limited Survey Single Organ or Quadrant - [id number] INDICATIONS: cirrhosis, screen for hcc; assess for [...] 08/17/2022 02:12 pm) PATIENT INFO: ID #: [id number] : 54 (71 yrs)(F) Name: PREMA SALGADO Visit Date: 08/17/2022 10:53 am PERFORMED BY: Attending: Kashmir Lindsay MD Resident: James Linares MD Performed By: Angelina Crystal RDMS Referred By: IRENE LAMAR Location: [place] SERVICE(S) PROVIDED: [facility] - Hepatology Protocol - Abdominal 35984 Limited Survey Single Organ or Quadrant - [id number] INDICATIONS: cirrhosis, screen for hcc; assess for [...] signed by: Kashmir Lindsay MD, [facility] ([phone]), at 08/17/2022 2:04 PM Thank you for letting us participate in the care of this patient. If you are a health care provider and have any questions regarding this report, please contact the number above. For patients who have questions, please contact the health post anesthesia care unit nurse that requested your imaging first. Kashmir Lindsay, Staff Physician Electronically Signed Final Report 08/17/2022 02:12 pm Irene Lamar MD IMG US GEN ORDERABLE S documented in this encounter Visit Diagnoses Diagnosis Autoimmune hepatitis Primary biliary cholangitis Hepatic cirrhosis, unspecified hepatic cirrhosis type, unspecified whether ascites present documented in this encounter Care Teams Commercial Sales Representative Relationship Specialty Start Date End Date Nicolasa Prince APRN [address] [place] [address] PCP - General Family Medicine 01/08/21 documented as of this encounter
--- OUTSIDE RECORDS SUMMARY | 2024-01-25 19:16 | XMS_ITS | Encounter Summary ---
Author Organization [facility] [place] [address] Care Team Providers Care Lens Mold Setter Name Role Phone Nicolasa Prince APRN Primary Care Provider +1- [phone] Reason for Visit * Reason Onset Date Comments Medication Refill 12/08/2023 Encounter Details Date Type Department Care Team (Late st Contact Info) Description 12/08/2023 Refill [place] [address] Elin Carlson MD [facility] [place] [address] Autoimmune hepatitis Social History Tobacco Use Types [...] hepatitis documented in this encounter Care Teams Lens Mold Setter Relationship Specialty Start Date End Date Nicolasa Prince APRN [address] [place] [address] PCP - General Family Medicine 01/08/21 documented as of this encounter
--- OUTSIDE RECORDS SUMMARY | 2024-01-25 19:16 | XMS_ITS | Encounter Summary ---
Author Organization [facility] [place] [address] Care Team Providers Care Aeronautical Products Sales Engineer Name Role Phone Nicolasa Prince APRN Primary Care Provider +1- [phone] Encounter Details Date Type Department Care Team (Late st Contact Info) Description 03/09/2023 External Results Gastroenterology at [facility] [place] [phone] Isabela March RN Social History Tobacco Use [...] / CMP / Thyroid External Results (03/01/2023) White Blood Cell 3.69 [facility] Red Blood Cell 4.97 [facility] Hemoglobin 15.9 [facility] Hematocrit 45.7 [facility] Mean Cell Volume 92.0 [facility] Platelet 138 [facility] Sodium 137 [facility] Potassium 4.2 [facility] Chloride 104 [facility] Carbon Dioxide 23 [facility] Blood Urea Nitrogen 26 [facility] Creatinine 0.8 [facility] Est Glomerular Filtration Rate 79.22 [facility] Glucose 124 [facility] Calcium 10.0 [facility] Protein, Total 8.0 [facility] Albumin 3.7 [facility] Bilirubin, Total 0.5 [facility] Alkaline Phosphatase 63 [facility] Aspartate Aminotransferase 26 [facility] Alanine Aminotransferase 23 [facility] Alpha Fetoprotein 2.7 [facility] Prothrombin Time 10.4 [facility] International Normalization Ratio 1.00 [facility] 03/01/2023 Historical Provider [facility] documented in this encounter Visit Diagnoses Not on filedocumented in this encounter Care Teams Aeronautical Products Sales Engineer Relationship Specialty Start Date End Date Nicolasa Prince APRN [address] [place] [address] PCP - General Family Medicine 01/08/21 documented as of this encounter
--- OUTSIDE RECORDS SUMMARY | 2024-01-25 19:16 | XMS_ITS | Encounter Summary ---
Author Organization [facility] Address [facility] [place] [address] Care Team Providers Care Station Mechanic Name Role Phone Nicolasa Prince CREDIT CASHIER Primary Care Provider +1- [phone] Encounter Details Date Type Department Care Team (Latest Contact Info) Description 03/30/2023 9:10 AM EST - 03/30/2023 11:59 PM [facility] Hospital [place] [phone] Carolynn Lamar MD [facility] [place] [address] Primary biliary cholangitis; Hepatic cirrhosis, unspecified hepatic [...] Tablet Take 325 mg by mouth daily. fenofibrate (Tricor) 145 mg tabletIndications:Autoi mmune hepatitis TAKE 1 TABLET BY MOUTH DAILY 90 tablet 3 03/16/2023 12/08/2023 Rybelsus 3 mg tablet 10/30/2022 024 Ursodiol [...] PM Electronically signed by: Ke Jay MD, [facility] ([phone]), at 03/30/2023 12:19 PM Thank you for letting us participate in the care of this patient. If you are a health care provider and have any questions regarding this report, please contact the number above. For patients who have questions, please contact the health career information specialist that requested your imaging first. ? Ke Jay, Staff Physician Electronically Signed Final Report ?? 03/30/2023 12:27 pm Narrative 03/30/2023 12:28 PM EST Abdominal ? (Signed Final 03/30/2023 12:27 pm) PATIENT INFO: ID #: ? [id number] ?: ??[birth year] (72 yrs)(F) Name: ? PREMA SALGADO ?Visit Date: 03/30/2023 09:52 am PERFORMED BY: Attending: ?Pierre LUTHER, Ke Conklin Resident: ? Joseph LUTHER, Ada Barrow Performed By: ? Elba Milian RDMS Referred By: ?CAROLYNN LAMAR Location: ? [place] [facility] Protocol - Abdominal ?75687 Limited Survey Single Organ or Quadrant - [id number] INDICATIONS: cirrhosis, screen for hcc COMPARISON: US: [...] 03/30/2023 12:27 pm) PATIENT INFO: ID #: [id number] : 54 (72 yrs)(F) Name: PREMA SALGADO Visit Date: 03/30/2023 09:52 am PERFORMED BY: Attending: Ke Jay MD Resident: Ada Ruiz MD Performed By: Elba Milian RDMS Referred By: CAROLYNN LAMAR Location: [place] [facility]) [facility] - Hepatology Protocol - Abdominal 55729 Limited Survey Single Organ or Quadrant - [id number] INDICATIONS: cirrhosis, screen for hcc COMPARISON: US: [...] PM Electronically signed by: Ke Jay MD, [facility] ([phone]), at 03/30/2023 12:19 PM Thank you for letting us participate in the care of this patient. If you are a health care provider and have any questions regarding this report, please contact the number above. For patients who have questions, please contact the health career information specialist that requested your imaging first. Ke Jay, Staff Physician Electronically Signed Final Report 03/30/2023 12:27 pm Carolynn Lamar MD IMG GEN ORDERABLE S documented in this encounter Visit Diagnoses Diagnosis Primary biliary cholangitis Hepatic cirrhosis, unspecified hepatic cirrhosis type, unspecified whether ascites present documented in this encounter Care Teams Station Mechanic Relationship Specialty Start Date End Date Nicolasa Prince APRN [address] [place] [address] PCP - General Family Medicine 01/08/21 documented as of this encounter
--- OUTSIDE RECORDS SUMMARY | 2024-01-25 19:16 | XMS_ITS | Encounter Summary ---
Author Organization [facility] [place] [address] Care Team Providers Care Hand Molder And Caster Name Role Phone Nicolasa Prince APRN Primary Care Provider +1- [phone] Reason for Visit * Reason Comments Medication Refill Encounter Details Date Type Department Care Team (Late st Contact Info) Description 12/14/2022 Refill [place] [address] Irene Lara MD [facility] [place] [address] Autoimmune hepatitis Social History Tobacco Use Types [...] hepatitis documented in this encounter Care Teams Hand Molder And Caster Relationship Specialty Start Date End Date Nicolasa Prince APRN [address] [place] [address] PCP - General Family Medicine 01/08/21 documented as of this encounter
--- OUTSIDE RECORDS SUMMARY | 2024-01-25 19:16 | XMS_ITS | Encounter Summary ---
Author Organization [facility] [place] [address] Care Team Providers Care Produce Field Merchandiser Name Role Phone Nicolasa Prince APRN Primary Care Provider +1- [phone] Encounter Details Date Type Department Care Team (Late st Contact Info) Description 12/25/2022 External Results [place] [address] Irene Lara MD [facility] [place] [address] Social History Tobacco Use Types Packs/Day Years [...] / CMP / Thyroid External Results (12/25/2022) White Blood Cell 3.26 Red Blood Cell 4.93 Hemoglobin 15.6 Hematocrit 47.1 Mean Cell Volume 96.0 Platelet 103 Sodium 138 Potassium 4.8 Chloride 104 Carbon Dioxide 25 Blood Urea Nitrogen 32 Creatinine 1.0 Est Glomerular Filtration Rate 60.61 Glucose 169 Calcium 9.5 Protein, Total 7.5 Albumin 3.4 Bilirubin, Total 0.6 Alkaline Phosphatase 77 Aspartate Aminotransferase 29 Alanine Aminotransferase 28 Historical Provider MD [facility] documented in this encounter Visit Diagnoses Not on filedocumented in this encounter Care Teams Produce Field Merchandiser Relationship Specialty Start Date End Date Nicolasa Prince APRN [address] [place] [address] PCP - General Family Medicine 01/08/21 documented as of this encounter
--- OUTSIDE RECORDS SUMMARY | 2024-01-25 19:16 | XMS_ITS | Encounter Summary ---
Author Organization [facility] [place] [address] Care Team Providers Care Trimmer Hand Name Role Phone Nicolasa Prince APRN Primary Care Provider +1- [phone] Encounter Details Date Type Department Care Team [...] on filedocumented in this encounter Care Teams Trimmer Hand Relationship Specialty Start Date End Date Nicolasa Prince APRN [address] [place] [address] PCP - General Family Medicine 01/08/21 documented as of this encounter
--- OUTSIDE RECORDS SUMMARY | 2024-01-25 19:16 | XMS_ITS | Encounter Summary ---
[place] [address] Care Team Providers Care Editorial Clerk Name Role Phone Nicolasa Prince APRN Primary Care Provider +1- [phone] Encounter Details Date Type Department Care Team (Latest Contact Info) Description 09/28/2023 11:15 AM EDT Laboratory Appointment Lab [address] [place] [address] Primary biliary cholangitis Social History Tobacco Use [...] Procedure Name Priority Date/Time Associated Diagnosis Comments HEPATIC FUNCTION PANEL Routine 09/28/2023 11:46 AM EDT Primary biliary cholangitis documented in this encounter Results * Hepatic Function Panel (09/28/2023 11:46 AM EDT) Protein, Total 7.6 6.1 - 8.0 g/dL [facility] Albumin 4.4 3.2 - 5.2 g/dL [facility] Aspartate Aminotransferase 25 0 - 30 unit/L [facility] Alanine Aminotransferase 23 0 - 30 unit/L [facility] Alkaline Phosphatase 70 35 - 105 unit/L [facility] Bilirubin, Total 0.7 0.2 - 1.3 mg/dL [facility] Bilirubin, Direct 0.3 0.0 - 0.3 mg/dL [facility] Blood 09/28/2023 11:4 6 AM EDT 09/28/2023 11:51 AM EDT Narrative Resulting Agency Comment Spec In Lab Irene Lara MD CHEMISTRY ORDERABLES Performing Organization Address City/State/[facility] Co de Phone Number [facility] [place] [address] documented in this encounter Visit Diagnoses Diagnosis Primary biliary cholangitis documented in this encounter Care Teams Editorial Clerk Relationship Specialty Start Date End Date Nicolasa Prince APRN [address] [place] [address] PCP - General Family Medicine 01/08/21 documented as of this encounter
--- OUTSIDE RECORDS SUMMARY | 2024-01-25 19:16 | XMS_ITS | Encounter Summary ---
Author Organization [facility] [place] [address] Care Team Providers Care Slurry Man Name Role Phone Nicolasa Prince APRN Primary Care Provider +1- [phone] Encounter Details Date Type Department Care Team (Late st Contact Info) Description 09/28/2023 1:00 PM EDT Office [place] [phone] Irene Lara MD [facility] [place] [address] Primary biliary cholangitis; Hepatic cirrhosis, unspecified hepatic [...] [place] and she was managed by a operations tech at . Her records were extensively reviewed in care [...] normal since approximately 2016. She moved to [place] in 2019.. Living with her two brothers. [...] Vitals: 09/28/23 1310 BP: 118/57 BP Location ([facility]): Right arm Patient Position: Sitting [...] screening in six months- will do in [facility], , GIF here in one year Time spent with patient: 25 min Time spent reviewing records, documenting- all today : 8 min Irene Lara MD Section of Gastroenterology & Hepatology [address] [place] [address] Cc: Nicolasa Prince APRN SURGICAL PATHOLOGY REPORT Patient: PREMA SALGADO MR #: [id number] Submitted by: Elie Moreno MD FINAL DIAGNOSIS [...] the ductules cannot be definitively distinguished from quechan bile ducts. There is patchy periportal hepatocellular [...] had a prior liver biopsy reviewed at [facility] (see accession number [id number]), although the slides are not available for [...] present documented in this encounter Care Teams Slurry Man Relationship Specialty Start Date End Date Nicolasa Prince APRN [address] [place] [address] PCP - General Family Medicine 01/08/21 documented as of this encounter
--- OUTSIDE RECORDS SUMMARY | 2024-01-25 19:16 | XMS_ITS | Encounter Summary ---
Author Organization [facility] [place] [address] Care Team Providers Care Agricultural Extension Officer Name Role Phone Nicolasa Prince APRN Primary Care Provider +1- [phone] Encounter Details Date Type Department Care Team (Late st Contact Info) Description 01/27/2023 External Results [place] [address] Irene Lara MD [facility] [place] [address] Social History Tobacco Use Types Packs/Day Years [...] / CMP / Thyroid External Results (01/26/2023) White Blood Cell 3.37 Red Blood Cell 5.15 Hemoglobin 16.2 Hematocrit 48.1 Mean Cell Volume 93.0 Platelet 129 Sodium 138 Potassium 3.9 Chloride 104 Carbon Dioxide 24 Blood Urea Nitrogen 22 Creatinine 0.9 Est Glomerular Filtration Rate 68.77 Glucose 121 Calcium 10.2 Protein, Total 8.0 Albumin 3.8 Bilirubin, Total 0.9 Alkaline Phosphatase 76 Aspartate Aminotransferase 28 Alanine Aminotransferase 29 Historical Provider MD [facility] documented in this encounter Visit Diagnoses Not on filedocumented in this encounter Care Teams Agricultural Extension Officer Relationship Specialty Start Date End Date Nicolasa Prince APRN [address] [place] [address] PCP - General Family Medicine 01/08/21 documented as of this encounter
--- OUTSIDE RECORDS SUMMARY | 2024-01-25 19:16 | XMS_ITS | Encounter Summary ---
Author Organization [facility] Address [address] [place] [address] Care Team Providers Care Weaver N[employer] Fab[employer] Name Role Phone Unavailable Primary Care Provider Unavailabl e Encounter Details Date Type Department Care Team (Late st Contact Info) Description 01/11/2024 Lab Requisition [facility] Pathology & [place] [address] Outr Resulting Lab, Provider Social History Tobacco [...] TUMOR MARKER Routine 01/11/2024 11:0 0 EDT documented in this encounter Results * AFP TUMOR MARKER (01/11/2024 11:00 EDT) AFP Tumor Marker <2.5 <8.1 ng/mL 01/12/2024 9:52 EDT [facility] Comment: AFP Tumor Marker [...] Resulting Lab CHEMISTRY & BLOOD GAS ORDERABLES [facility] [address] [place] [address] documented in this encounter Visit Diagnoses Not on filedocumented in this encounter
--- OUTSIDE RECORDS SUMMARY | 2024-01-25 19:16 | XMS_ITS | Encounter Summary ---
Author Organization [facility] [address] Care Team Providers Care Automotive Light Mechanic Name Role Phone Nicolasa Prince APRN Primary Care Provider +1- [phone] Encounter Details Date Type Department Care Team (Late st Contact Info) Description 12/09/2022 Telephone [place] [address] Mai Larson Social History Tobacco Use Types [...] - 12/09/2022 2:33 PM EDT Cookie Damian [id number] Diagnosis/Indication: 6 mo Please review patient chart [...] your procedure. Who will likely be your chassis driver for the procedure? *Please Verify the [...] on filedocumented in this encounter Care Teams Automotive Light Mechanic Relationship Specialty Start Date End Date Nicolasa Prince APRN [address] [place] [phone] PCP - General Family Medicine 01/08/21 documented as of this encounter
--- OUTSIDE RECORDS SUMMARY | 2024-01-25 19:16 | XMS_ITS | Encounter Summary ---
Author Organization [facility] [place] [address] Care Team Providers Care Game Moderator Name Role Phone Nicolasa Prince APRN Primary Care Provider +1- [phone] Encounter Details Date Type Department Care Team (Late st Contact Info) Description 03/10/2023 Telephone [place] [phone] Irene Lara MD [facility] [place] [address] Social History Tobacco Use Types Packs/Day Years [...] Lara MD Section of Gastroenterology & Hepatology [address] [place] [address] documented in this encounter Plan of Treatment Not on file documented as of this encounter Visit Diagnoses Not on filedocumented in this encounter Care Teams Game Moderator Relationship Specialty Start Date End Date Nicolasa Prince APRN [address] [place] [address] PCP - General Family Medicine 01/08/21 documented as of this encounter
--- OUTSIDE RECORDS SUMMARY | 2024-01-25 19:16 | XMS_ITS | Clinical Summary ---
Author Organization [facility] Address [facility] [place] [address] Care Team Providers Care Job Analysis Manager Name Role Phone Nicolasa Prince YULIA Primary Care Provider +1- [phone] Allergies Active Allergy Reactions Criticality Noted Date Comments Amoxicillin 01/22/2021 Ciprofloxacin 01/22/2021 Egg Derived Other (See Comments),Anaphylaxi s,Hives,Itching High 02/17/2013 Also Egg Metformin Nausea And Vomiting Low 10/29/2020 Mold Other (See Comments) 01/22/2021 Also SMUT Maldrph-Yxt-Krm Reductase Inhibitors Low 10/25/2020 Other reaction(s): Myalgia/Myositis/A [...] fenofibrate (Tricor) 145 mg tabletIndications:Au toimmune hepatitis Take 1 tablet by mouth daily. 90 tablet 12/08/2023 Active Ursodiol (Bridgette Forte) 500 mg tabletIndications:Au toimmune hepatitis Take 1 tablet by mouth 2 times daily. 180 tablet 12/08/2023 Active Active Problems Problem Noted Date Diagnosed Date Atherosclerotic heart diseas e of [place] coronary artery without angina pectoris 01/22/2021 Encounters Date Type Department Care Team Description 12/30/2023 1:43 PM EDT - 12/30/2023 11:59 PM EDT [place] [phone] Nicolasa Prince APRN Cervical radiculopathy Discharge Disposition: Home 12/13/2023 [place] [phone] ChiquitaMeghaJasmin M 12/08/2023 [place] [phone] Elin Carlson MD Autoimmune hepatitis 11/19/2023 [place] [address]1000 Irene Lara MD Autoimmune hepatitis from Last 3 Months [...] Hepatitis C Screening 1970 Lipid Screening 1970 Tetanus/Diphtheria/Pertussis Vaccines (1 - Tdap) 12/08/1971 Breast Cancer Share Decision Needed 1992 Breast Cancer screening 1992 Zoster vaccine (1 of 2) 2002 Advance Directive 12/08/2007 Bone Density Scan 2017 Pneumoccocal Vaccine: 65+ (1 of 1 - PCV) 2017 Covid-19 Vaccine (1 - 2022-2 4 season) 2024 Influenza (Flu) vaccine (1 o f 1 - Influenza standard series) 01/02/2024 Colonoscopy 02/19/2026 02/19/2023, 02/01, 08/07/2022, Additional history exists Colorectal Cancer Screening 02/19/2026 Sigmoidoscopy (10 year) with FIT yearly 02/19/2033 02/19/2023, 02/19/2023, 08/07/2022, Additional history exists Diabetes Screening (HgbA1C o r Glucose) Discontinued 03/30/2023, 03/01/2023, 01/26/2023, Additional history exists Procedures Procedure Name Priority Date/Time Associated Diagnosis Comments LAB SCAN 01/11/2024 12:00 AM EDT MRI CERVICAL SPINE WO CONTRAST Routine 12/30/2023 2:20 PM EDT Cervical radiculopathy ORDS - PROVIDER CARE SCAN 12/09/2023 12:00 AM EDT ORDS - PROVIDER CARE SCAN 12/09/2023 12:00 AM EDT LAB SCAN 12/08/2023 12:00 AM EDT COMPREHENSIVE METABOLIC PANEL Routine 03/30/2023 10:23 AM EST Primary biliary cholangitis Hepatic cirrhosis, unspecified hepatic cirrhosis type, unspecified whether ascites present COLONOSCOPY Routine 02/19/2023 1:47 PM EDT from Last 3 Months or Most Recently Relevant to Health Maintenance Results * Scan Doc: Lab (01/11/2024 12:00 AM EDT) Only the most recent of2 resultswithin the time period is included. Narrative 01/11/2024 12:00 AM EDT Ordered by an unspecified provider. Scanning Provider MEDIA MGR SCAN EXT O RDR/RSLT * MRI Cervical Spine wo Contrast (Generic) (12/30/2023 2:20 PM EDT) WORKSTATION ID [id number] RAD Anatomical Region Laterality Modality C-spine Magnetic Resonan [...] who have questions please contact the health body care manager that requested your imaging first. ? Narrative 12/31/2023 4:30 PM EDT EXAMINATION: MRI [...] soft tissue pathology identified. Procedure Note Vineet Ruggiero, DO - 12/31/2023 EXAMINATION: MRI CERVICAL SPINE [...] patients who have questions please contactthe health body care manager that requested your imaging first. Nicolasa H Philperez DIRECTOR CHECK IMG MRI ORDERABLES * Scan Doc: Ords - Provider Care (12/09/2023 12:00 AM EDT) Only the most recent of2 resultswithin the time period is included. Narrative 12/09/2023 12:00 AM EDT Ordered by an unspecified provider. Scanning Provider MEDIA MGR SCAN EXT O RDR/RSLT * (ABNORMAL) Comprehensive metabolic panel (non-fasting) (03/30/2023 10:23 AM EST) Glucose 110 65 - 199 mg/dL [facility] Comment:Diabetes: >=200 mg/d L plus symptoms Blood Urea Nitrogen 20(H) 8 - 18 mg/dL [facility] Creatinine 0.82 0.70 - 1.20 mg/dL [facility] Sodium 140 135 - 145 mmol/L [facility] Potassium 4.1 3.5 - 5.0 mmol/L [facility] Comment: Please note: ??Patients with WBC >100,000 may have falsely elevated Potassium levels. ??For accurate Potassium quantification in these patients send serum separator tube (gold top) for subsequent determinations. ??Contact the Clinical Chemistry Laboratory if there are any questions. Chloride 105 98 - 107 mmol/L [facility] Carbon Dioxide 22 22 - 31 mmol/L [facility] Anion Gap 13 5 - 15 mmol/L [facility] Calcium 9.8 8.5 - 10.5 mg/dL [facility] Protein, Total 7.2 6.1 - 8.0 g/dL [facility] Albumin 4.4 3.2 - 5.2 g/dL [facility] Aspartate Aminotransferase 31(H) 0 - 30 unit/L [facility] Alanine Aminotransferase 24 0 - 30 unit/L [facility] Alkaline Phosphatase 64 35 - 105 unit/L [facility] Bilirubin, Total 0.7 0.2 - 1.3 mg/dL [facility] Est Glomerular Filtration Rate 77 >=60 mL/min/1. 73 m?? [facility] Comment: This patient's estimated GFR [...] In Lab Irene Lara MD CHEMISTRY ORDERABLES [facility] [place] [address] * COLONOSCOPY (02/19/2023 1:47 PM EDT) COLONOSCOPY [facility] Endoscopy Procedure Date: 02/19/2023 1:47 PM ? Patient Name: Cookie Salgado ? Date of : 1950 ? Age: 72 ? Order #: [id number] ? Instrument Name: [id number] ? Procedure: ? Colonoscopy Indications: ? Follow-up for history of ? adenomatous polyps in the colon Providers: ? Elin Carlson MD, Damon Jean ? Lucy Archer Referring : ?Nicolasa H. Chute Medicines: ? Midazolam 4 [...] ? was evaluated using the BBPS ? ([place] Bowel Preparation Scale) ? with scores of: [...] Procedure Code(s): ? --- Professional --- ? 04051, Colonoscopy, flexible; with ? removal of tumor(s), polyp(s), or ? other lesion(s) by snare technique CPT copyright 2021 [employer]. All rights reserved. The codes [...] GENERAL SURGICAL O RDERABLES Performing Organization Address City/State/[facility] Co de Phone Number [employer] from Last 3 Months or Most Recently Relevant to Health Maintenance Care Teams Job Analysis Manager Relationship Specialty Start Date End Date Nicolasa Prince APRN [address] [place] [address] PCP - General Family Medicine 01/08/21
--- OUTSIDE RECORDS SUMMARY | 2024-01-25 19:16 | XMS_ITS | Encounter Summary ---
Author Organization [facility] [place] [address] Care Team Providers Care Spool Sander Name Role Phone Nicolasa Prince APRN Primary Care Provider +1- [phone] Reason for Visit * Reason Comments Medication Refill Encounter Details Date Type Department Care Team (Late st Contact Info) Description 03/14/2023 [place] [address] Irene Lara MD [facility] [place] [address] Autoimmune hepatitis Social History Tobacco Use Types [...] hepatitis documented in this encounter Care Teams Spool Sander Relationship Specialty Start Date End Date Nicolasa Prince APRN [address] [place] [address] PCP - General Family Medicine 01/08/21 documented as of this encounter
--- OUTSIDE RECORDS SUMMARY | 2024-01-25 19:16 | XMS_ITS | Encounter Summary ---
Author Organization [facility] [place] [address] Care Team Providers Care Clinical Practice Consultant Name Role Phone Nicolasa Prince APRN Primary Care Provider +1- [phone] Encounter Details Date Type Department Care Team [...] on filedocumented in this encounter Care Teams Clinical Practice Consultant Relationship Specialty Start Date End Date Nicolasa Prince APRN [address] [place] [address] PCP - General Family Medicine 01/08/21 documented as of this encounter
--- OUTSIDE RECORDS SUMMARY | 2024-01-25 19:16 | XMS_ITS | Clinical Summary ---
Author Organization [facility] Address [address] [place] [address] Care Team Providers Care Painting Manager Name Role Phone Unavailable Primary Care Provider Unavailabl e Encounters Date Type Department Care Team Description 01/11/2024 Lab Requisition [facility] Pathology & Laboratory [address] [address] Outr Resulting Lab, Provider 11/17/2023 Lab Requisition [facility] Pathology & Laboratory [address] [address] Outr Resulting Lab, Provider from Last 3 [...] 2012 Fall Risk Screening 2017 COVID-19 Vaccine ( season) 2023 Procedures Procedure Name Priority Date/Time Associated Diagnosis Comments AFP TUMOR MARKER Routine 01/11/2024 11:0 0 EDT LYME AB Routine 11/16/2023 9:50 EDT from Last 3 Months Results * AFP TUMOR MARKER (01/11/2024 11:00 EDT) AFP Tumor Marker <2.5 <8.1 ng/mL 01/12/2024 9:52 EDT [facility] Comment: AFP Tumor Marker [...] & BLOOD GAS ORDERABLES Performing Organization Address [facility] Co de Phone Number [facility] [address] [place] [address] * LYME AB (11/16/2023 9:50 EDT) Lyme Ab Negative Negative 11/18/2023 11:08 EDT [facility] Blood VENOUS BLOOD / Unknown 11/16/2023 9:50 EDT 11/17/2023 18:10 EDT Provider Outr Resulting Lab IMMUNOLOGY A ND SEROLOGY ORDERABLES Performing Organization Address City/[facility] Co de Phone Number [facility] [address] [place] [address] from Last 3 Months
--- OUTSIDE RECORDS SUMMARY | 2024-01-25 19:16 | XMS_ITS | Encounter Summary ---
Author Organization [facility] [place] [address] Care Team Providers Care Clother In Name Role Phone Nicolasa Prince APRN Primary Care Provider +1- [phone] Reason for Visit * Reason Comments Medication Refill Encounter Details Date Type Department Care Team (Late st Contact Info) Description 10/15/2022 Refill [place] [address] Irene Lara MD [facility] [place] [address] Autoimmune hepatitis Social History Tobacco Use Types [...] hepatitis documented in this encounter Care Teams Clother In Relationship Specialty Start Date End Date Nicolasa Prince APRN [address] [place] [address] PCP - General Family Medicine 01/08/21 documented as of this encounter
--- OUTSIDE RECORDS SUMMARY | 2024-01-25 19:16 | XMS_ITS | Encounter Summary ---
Author Organization [facility] [place] [address] Care Team Providers Care Graining Press Operator Name Role Phone Nicolasa Prince APRN Primary Care Provider +1- [phone] Reason for Visit * Reason Comments Medication Refill Encounter Details Date Type Department Care Team (Late st Contact Info) Description 09/15/2022 Refill [place] [address] Irene Lara MD [facility] [place] [address] Autoimmune hepatitis Social History Tobacco Use Types [...] hepatitis documented in this encounter Care Teams Graining Press Operator Relationship Specialty Start Date End Date Nicolasa Prince APRN [address] [place] [address] PCP - General Family Medicine 01/08/21 documented as of this encounter
--- OUTSIDE RECORDS SUMMARY | 2024-01-25 19:16 | XMS_ITS | Encounter Summary ---
Author Organization [facility] Address [facility] [place] [address] Care Team Providers Care Parking Line Painter Name Role Phone Nicolasa Prince APRN Primary Care Provider +1- [phone] Encounter Details Date Type Department Care Team (Late st Contact Info) Description 12/02/2022 [place]phone [place] [phone] Irene Lara MD [facility] [place] [address] Social History Tobacco Use Types Packs/Day Years [...] Lara MD Section of Gastroenterology & Hepatology [address] [place] [address] documented in this encounter Plan of Treatment Not on file documented as of this encounter Visit Diagnoses Not on filedocumented in this encounter Care Teams Parking Line Painter Relationship Specialty Start Date End Date Nicolasa Prince APRN [address] [place] [address] PCP - General Family Medicine 01/08/21 documented as of this encounter
--- OUTSIDE RECORDS SUMMARY | 2024-01-25 19:16 | XMS_ITS | Encounter Summary ---
Author Organization [facility] [place] [address] Care Team Providers Care Home Companion Name Role Phone Nicolasa Prince APRN Primary Care Provider +1- [phone] Encounter Details Date Type Department Care Team [...] filedocumented in this encounter Care Teams Home Companion Relationship Specialty Start Date End Date Nicolasa Prince APRN [address] [place] [address] PCP - General Family Medicine 01/08/21 documented as of this encounter
--- OUTSIDE RECORDS SUMMARY | 2024-01-25 19:17 | XMS_ITS | Encounter Summary ---
Author Organization [facility] [place] [address] Care Team Providers Care Mine Car Mechanic Name Role Phone Nicolasa Prince YULIA Primary Care Provider +1- [phone] Reason for Visit * Auth/Cert (Routine) Specialty [...] GI ENDOSCOPY COLONOSCOPY, DIAGNOSTIC Elin Carlson MD [facility] [address] [facility] Referral ID Status Reason Start Date Expiration Date Visits Re quested Visits Authorized [id number] 1 1 Encounter Details Date Type Department Care Team (Late st Contact Info) Description 08/07/2022 2:00 PM EDT - 08/07/2022 3:00 PM EDT [place] [address] Elin Carlson MD [facility] [place] [place] [address] EGD, UPPER GI ENDOSCOPY (WRVU 2.09) Social [...] encounter Discharge Instructions * Discharge Instructions* Emmy Camarillo, RN - 08/07/2022 3:29 PM EDT Upper [...] the day after the test, use an npjs-qqv-qcbduyb spray or lozenges to numbyour throat. Warm [...] occurs, please contact your doctor. Please call [phone] before 8pm Mon-Fri with problems, questions, or concerns. If you call after 8pm or on weekends, call the Hospital at [phone] and ask for the Customer Insight Analyst conveyor man and the slurry plant operator will contact that person for you. [...] more? You can view health information on [employer], your personal patient account. Log in or sign up today. Content Version: 12.2 ?? [id number] [employer]. Care instructions adapted under license by [email or web address]. If you have questions about a medical condition or this instruction, always ask your healthcare professional. [employer] disclaims any warranty or liability for your [...] Diagnosis Code ??? Atherosclerotic heart disease of [place] coronary artery without angina pectoris I25.10 EXAM: [...] 2:57 PM EDT Colonoscopy, Flex, W/Control, Bleeding (23466) 08/07/2022 2:21 PM EDT Hepatic cirrhosis, unspecified hepatic cirrhosis type, unspecified whether ascites present Screening for colon cancer Colonoscpy, Flex, W/Dir Submuc Inject (60485) 08/07/2022 2:21 PM EDT Hepatic cirrhosis, unspecified hepatic cirrhosis type, unspecified whether ascites present Screening for colon cancer Colonoscopy, Remv Lesn, Snare (51138) 08/07/2022 2:21 PM EDT Hepatic cirrhosis, unspecified hepatic cirrhosis type, unspecified whether ascites present Screening for colon cancer Upper GI Endoscopy, Diagnostic (59898) 08/07/2022 2:21 PM EDT Hepatic cirrhosis, unspecified hepatic cirrhosis type, unspecified whether ascites present Screening for colon cancer UPPER GI ENDOSCOPY Routine 08/07/2022 2: 10 PM EDT COLONOSCOPY Routine 08/07/2022 2:10 PM EDT documented in this encounter Results * Specimen to Pathology (08/07/2022 3:25 PM EDT) AP Specimen 08/07/2022 3:25 PM EDT 08/07/2022 3:25 PM EDT Narrative [facility] - 08/07/2022 3:25 PM EDT Specimen requisition ordered. ??Separate Pathology report to follow Elin Carlson MD PATHOLOGY/CYTOLOGY O MEENU [facility] [place] [address] * Specimen to Pathology (08/07/2022 3:25 PM EDT) AP Specimen 08/07/2022 3:25 PM EDT 08/07/2022 3:25 PM EDT Narrative [facility] - 08/07/2022 3:25 PM EDT Specimen requisition ordered. ??Separate Pathology report to follow Elin Carlson MD PATHOLOGY/[place] [address] * Surgical Pathology Report (08/07/2022 2:57 PM EDT) Final Diagnosis [id number] ? Location: 4T; EA12; A The signing [...] Arpit Verified: ??08/26/2022 16:10 ??Pathologist Performed at: ??-[facility] Dept. of Pathology, [place] [address] Brick Pitcher: Stefan Min MD, FCAP, ??CLIA Certificate: [id number] SPECIMEN(S) SUBMITTED A - transverse colon polyp, [...] labeled B1-B2. ??shb 08/26/2022 4:10 PM EDT [facility] GI Biopsy 08/07/2022 2:57 PM EDT 08/07/2022 2:57 PM EDT GI Biopsy 08/07/2022 2:57 PM EDT 08/07/2022 2:57 PM EDT Elin Carlson MD PATHOLOGY/CYTOLOGY O RDMARANDABLES [facility] [place] [address] [facility] [place] [address] * UPPER GI ENDOSCOPY (08/07/2022 2:10 PM EDT) UPPER GI ENDOSCOPY [facility] Endoscopy Procedure Date: 08/07/2022 2:10 PM ? Patient Name: Cookie Salgado ? N: [id number] ? Date of : 1950 ? Age: 71 ? Order #: [id number] ? Instrument Name: [id number] ? Procedure: ? Upper GI endoscopy Indications: [...] Prince APRN GENERAL SURGICAL O RDERABLES [employer] * COLONOSCOPY (08/07/2022 2:10 PM EDT) COLONOSCOPY [facility] Endoscopy Procedure Date: 08/07/2022 2:10 PM ? Patient Name: Cookie Salgado ? Date of : 1950 ? Age: 71 ? Order #: [id number] ? Instrument Name: [id number] ? Procedure: ? Colonoscopy Indications: ? Screening [...] ? was evaluated using the BBPS ? ([place] Bowel Preparation Scale) ? with scores of: [...] Procedure Code(s): ? --- Professional --- ? 02110, Colonoscopy, flexible; with ? endoscopic mucosal resection ? 45840, 59, Colonoscopy, flexible; ? with removal of tumor(s), polyp(s), ? or other lesion(s) by snare ? technique CPT copyright 2020 [employer]. All rights reserved. The codes [...] [employer]OVATION 08/07/2022 2:10 PM EDT Nicolasa Prince FABRIC WORKER LEADER GENERAL SURGICAL O RDERABLES [employer] documented in [...] Routine 1424 (Given - Provid er: Leticia Ca, RN)1427 (Given - Provider: Leticia Ca, RN)1431 (Given - Provider: Leticia Ca, RN)1442 (Given - Provider: Leticia Ca, RN)1450 (Given - Provider: Leticia Ca, RN) documented in this encounter Care Teams Mine Car Mechanic Relationship Specialty Start Date End Date Nicolasa Prince, YULIA [address] [address] PCP - General Family Medicine 01/08/21 documented as of this encounter
--- OUTSIDE RECORDS SUMMARY | 2024-01-25 19:17 | XMS_ITS | Encounter Summary ---
[place] [address] Care Team Providers Care Signaling Project Engineer Name Role Phone Nicolasa Prince YULIA Primary Care Provider +1- [phone] Encounter Details Date Type Department Care Team (Latest Contact Info) Description 07/22/2021 11:35 AM EDT Laboratory Appointment Lab [address] [place] [phone] Primary biliary cholangitis Social History Tobacco Use [...] 07/22/2021 11:40 AM EDT COMPREHENSIVE METABOLIC PANEL Routine 07/22/2021 11:40 AM EDT Primary biliary cholangitis documented in this encounter Results * (ABNORMAL) Hemoglobin A1c (07/22/2021 11:40 AM EDT) Hemoglobin A1c 9.4(H) 4.3 - 5.6 % [facility] Comment: Reference Range: 4.3 - [...] Mellitus, Diabetes Care 2013; 36: Suppl. 1, M27-45 Estimated Average Glucose 222 mg/dL [facility] Comment: eAG equivalents for HbA1c [...] into estimated average glucose values. ??Diabetes Care 2008:31(8):3373-6345. Blood Venous Draw / Unknown 07/22/2021 11:40 AM EDT 07/22/2021 2:17 PM EDT Narrative Resulting Agency Comment Spec In Lab Irene Lara MD CHEMISTRY ORDERABLES Performing Organization Address City/State/[facility] Co de Phone Number [facility] [place] [address] * Differential, Automated (07/22/2021 11:40 AM EDT) Neutrophil % 67.4 % [facility] Neutrophil Absolute 3.18 1.70 - 6.10 x10(3)/[facility] Lymph % 22.0 % [facility] Lymphocytes Abs 1.0 0.9 - 3.2 x10(3)/[facility] Monocyte % 8.7 % [facility] Monocyte Abs 0.4 0.3 - 0.9 x10(3)/[facility] Eos % 1.3 % [facility] Eosinophils Abs 0.1 0.0 - 0.4 x10(3)/[facility] Basophil % 0.4 % [facility] Baso Absolute 0.0 0.0 - 0.1 x10(3)/[facility] Immature Gran % 0.20 % [facility] Comment: Immature granulocytes(IG's)percentage and absolute count will include metamyelocytes, myelocytes, and promyelocytes. Blood smears from CBCs yielding IG's will be scanned manually for concordance. If this scan disagrees with the automated IG or if promyelocytes are noted, a manual differential will be performed. Immature Gran Absolute 0.01 0.00 - 0.04 x10(3)/[facility] Blood 07/22/2021 11:4 0 AM EDT 07/22/2021 11:55 AM EDT Narrative Resulting Agency Comment Spec In Lab Irene Lara MD HEMATOLOGY ORDERABLE S [facility] [place] [address] * (ABNORMAL) Hemogram (07/22/2021 11:40 AM EDT) White Blood Cell 4.7 4.0 - 9.5 x10(3)/mc L [facility] Red Blood Cell 5.44(H) 4.00 - 5.21 x10(6)/mc L [facility] Hemoglobin 16.8(H) 11.7 - 15.5 g/dL [facility] Hematocrit 49.7(H) 35.7 - 45.8 % [facility] Mean Cell Volume 91.4 82.6 - 94.[address] [facility] Mean Cell Hemoglobin 30.9 27.1 - 32.[address] [facility] Mean Cell Hemoglobin Concentration 33.8 31.7 - 35.0 g/dL [facility] Platelet 141(L) 145 - 357 x10(3)/mc L [facility] RDW Standard Deviation 45.5 37.0 - 46.[address] [facility] RDW coefficient of variation 13.5 11.5 - 14.1 % [facility] Mean Platelet Volume 10.8 7.6 - 12.[address] [facility] NRBC% auto 0.0 % [facility] NRBC Absolute 0.000 0.000 - 0.000 x10(3)/mc L [facility] Blood 07/22/2021 11:4 0 AM EDT 07/22/2021 11:55 AM EDT Narrative Resulting Agency Comment Spec In Lab Irene Lara MD HEMATOLOGY ORDERABLE S [facility] [place] [address] * (ABNORMAL) Comprehensive metabolic panel (non-fasting) (07/22/2021 11:40 AM EDT) Glucose 156 65 - 199 mg/dL [facility] Comment:Diabetes: >=200 mg/d L plus symptoms Blood Urea Nitrogen 23(H) 8 - 18 mg/dL [facility] Creatinine 0.88 0.70 - 1.20 mg/dL [facility] Sodium 135 135 - 145 mmol/L [facility] Potassium 4.4 3.5 - 5.0 mmol/L [facility] Comment: Please note: ??Patients with WBC >100,000 may have falsely elevated Potassium levels. ??For accurate Potassium quantification in these patients send serum separator tube (gold top) for subsequent determinations. ??Contact the Clinical Chemistry Laboratory if there are any questions. Chloride 104 98 - 107 mmol/L [facility] Carbon Dioxide 18(L) 22 - 31 mmol/L [facility] Anion Gap 13 5 - 15 mmol/L [facility] Calcium 10.0 8.5 - 10.5 mg/dL [facility] Protein, Total 7.8 6.1 - 8.0 g/dL [facility] Albumin 4.5 3.2 - 5.2 g/dL [facility] Aspartate Aminotransferase 29 0 - 30 unit/L [facility] Alanine Aminotransferase 26 0 - 30 unit/L [facility] Alkaline Phosphatase 89 35 - 105 unit/L [facility] Bilirubin, Total 0.7 0.2 - 1.3 mg/dL [facility] Est Glomerular Filtration Rate 68 >=60 mL/min/1. 73 m?? [facility] Comment: This patient? s estimated [...] Lara MD CHEMISTRY ORDERABLES Performing Organization Address [facility]/ZIP Co de Phone Number [facility] [place] [address] * AFP tumor marker (07/22/2021 11:40 AM EDT) Alpha Fetoprotein 3.4 <=8.3 ng/mL [facility] Blood 07/22/2021 11:4 0 AM EDT 07/22/2021 11:55 AM EDT Narrative Resulting Agency Comment Spec In Lab Irene Lara MD CHEMISTRY ORDERABLES Performing Organization Address [facility] Co de Phone Number [facility] [place] [address] * Prothrombin Time (07/22/2021 11:40 AM EDT) Prothrombin Time 11.6 9.4 - 12.[address] [facility] International Normalization Ratio 1.[address] [facility] Comment: An INR <2.0 indicates [...] MD HEMATOLOGY ORDERABLE S Performing Organization Address [facility] Co de Phone Number [facility] [place] [address] documented in this encounter Visit Diagnoses Diagnosis Primary biliary cholangitis documented in this encounter Care Teams Signaling Project Engineer Relationship Specialty Start Date End Date Nicolasa Prince APRN [address] [place] [address] PCP - General Family Medicine 01/08/21 documented as of this encounter
--- OUTSIDE RECORDS SUMMARY | 2024-01-25 19:17 | XMS_ITS | Encounter Summary ---
Author Organization [facility] Address [facility] [place] [address] Care Team Providers Care Quarry Supervisor Dimension Stone Name Role Phone Nicolasa Prince APRN Primary Care Provider +1- [phone] Encounter Details Date Type Department Care Team (Late st Contact Info) Description 01/28/2021 Orders Only Cardiology at [address] [address] Kylah Arellano APRN [facility] [place] [address] Atherosclerosis of circle coronary artery without angina pectoris, unspecified whether circle or transplanted heart Social History Tobacco Use [...] this encounter Visit Diagnoses Diagnosis 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
--- OUTSIDE RECORDS SUMMARY | 2024-01-25 19:17 | XMS_ITS | Encounter Summary ---
Author Organization [facility] Address [facility] [place] [address] Care Team Providers Care Occupational Therapy Asst Name Role Phone Nicolasa Prince APRN Primary Care Provider +1- [phone] Encounter Details Date Type Department Care Team (Late st Contact Info) Description 10/29/2021 Orders [place] [address] Irene Lara MD [facility] [place] [address] Type 2 diabetes mellitus with other specified complication, unspecified whether intermediate teacher insulin use Social History Tobacco Use Types [...] (ABNORMAL) Hemoglobin A1c (02/10/2022 11:06 AM EDT) [facility] Hemoglobin A1c 7.0(H) 4.3 - 5.6 % [facility] [...] Mellitus, Diabetes Care 2013; 36: Suppl. 1, S60-79 Estimated Average Glucose 155 mg/dL [facility] Comment: eAG equivalents for [...] into estimated average glucose values. ??Diabetes Care 2008:31(8):1671-3046. Blood 02/10/2022 11:0 6 AM EDT 02/10/2022 11:10 AM EDT Narrative Resulting Agency Comment Spec In Lab Irene Lara MD CHEMISTRY ORDERABLES [facility] [place] [address] documented in this encounter Visit Diagnoses Diagnosis Type 2 diabetes mellitus with other specified complication, unspecified whether [facility] insulin use documented in this encounter Care Teams Occupational Therapy Asst Relationship Specialty Start Date End Date Nicolasa Prince APRN [address] [place] [address] PCP - General Family Medicine 01/08/21 documented as of this encounter
--- OUTSIDE RECORDS SUMMARY | 2024-01-25 19:17 | XMS_ITS | Encounter Summary ---
[place] [address] Care Team Providers Care Electrical Designer Drafter Name Role Phone Suresh Nicolasa Giles APRN Primary Care Provider +1- [phone] Reason for Referral * Diagnostic Test (Routine) - Closed Specialty Diagnoses / Procedures Referred By Contac t Referred To Contact Radiology Diagnoses Primary biliary cholangitis Procedures MRI Abdomen wwo Contrast (Generic) Harmony Andrade [facility] [place] [address] [place] [address] Referral ID Status Reason Start Date Expiration Date V isits Requested Visits Authorized [id number] Closed Specialty Service Requested 02/19/2021 08/20/2022 1 1 Reason for Visit * Diagnostic Test (Routine) - Closed Specialty Diagnoses / Procedures Referred By Contac t Referred To Contact Radiology Diagnoses Primary biliary cholangitis Procedures MRI Abdomen wwo Contrast (Generic) Harmony Andrade [facility] [place] [address] [place] [address] Referral ID Status Reason Start Date Expiration Date V isits Requested Visits Authorized [id number] Closed Specialty Service Requested 02/19/2021 08/20/2022 1 1 Encounter Details Date Type Department Care Team (Latest Contact Info) Description 07/22/2021 9:43 AM EDT - 07/22/2021 11:59 PM EDT Hospital [place] [address] Harmony Andrade APRN [facility] [place] [address] Primary biliary cholangitis Discharge Disposition: Home Social [...] who have questions please contact the health director medicare sales that requested your imaging first. ? Narrative [...] patients who have questions please contactthe health director medicare sales that requested your imaging first. Harmony Andrade APRN [facility] MRI ORDERABLES documented in this encounter Visit [...] mLs documented in this encounter Care Teams Electrical Designer Drafter Relationship Specialty Start Date End Date Nicolasa Prince APRN [address] [place] [address] PCP - General Family Medicine 01/08/21 documented as of this encounter
--- OUTSIDE RECORDS SUMMARY | 2024-01-25 19:17 | XMS_ITS | Encounter Summary ---
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
--- OUTSIDE RECORDS SUMMARY | 2024-01-25 19:17 | XMS_ITS | Encounter Summary ---
Author Organization [place] [address] Care Team Providers Care Gum Machine Filler Name Role Phone Nicolasa Prince APRN Primary Care Provider +1- [phone] Encounter Details Date Type Department Care Team (Late st Contact Info) Description 01/22/2021 Telephone Cardiology at [address] [phone] Lorie Garza, JAY Social History Tobacco Use [...] on filedocumented in this encounter Care Teams Gum Machine Filler Relationship Specialty Start Date End Date Nicolasa Prince APRN [address] [place] [address] PCP - General Family Medicine 01/08/21 documented as of this encounter
--- OUTSIDE RECORDS SUMMARY | 2024-01-25 19:17 | XMS_ITS | Encounter Summary ---
Author Organization [facility] [place] [address] Care Team Providers Care Cut Off Worker Name Role Phone Nicolasa Prince APRN Primary Care Provider +1- [phone] Encounter Details Date Type Department Care Team (Late st Contact Info) Description 02/10/2022 11:30 AM EDT Office [place] [address] Irene Lamar MD [facility] [place] [address] Autoimmune hepatitis; Primary biliary cholangitis; Hepatic cirrhosis, [...] [place] and she was managed by a manufacturing engineer supervisor at [facility]. Her records were extensively reviewed in [...] for HCC screening, may time this with EGD/[place] Time spent with patient: 40 min Time spent reviewing records, documentin min Irene Lamar MD Section of Gastroenterology & Hepatology [address] [place] [address] Cc: Nicolasa Prince APRN SURGICAL PATHOLOGY REPORT ? Patient: PREMA SALGADO ?MR #: [id number] ?Submitted by: Elie Moreno MD FINAL DIAGNOSIS [...] the ductules cannot be definitively distinguished from [place] bile ducts. ??There is patchy periportal hepatocellular [...] had a prior liver biopsy reviewed at [facility] (see accession number [id number]), although the slides are not available for direct comparison at this time. ??However, based on the microscopic description, it appears that fibrosis may have progressed. documented in this encounter Procedure Notes * Irene Lamar MD - 02/10/2022 11:30 AM EDTAssociated Order(s): FIBROSCAN Procedure(s): FIBROSCAN Pre-Procedure Diagnose(s): Autoimmune hepatitis; Primary biliary cholangitis [facility] Liver Fibrosis Assessment Report Indication: AIH/PBC, assess for portal htn Performed by: HOWARD Rockwell Procedure: Vibration Controlled Transient Elastography (VCTE) or Fibroscan [place] Protocol: Patient's identity, procedure and site were [...] Procedure Name Priority Date/Time Associated Diagnosis Comments [id number] Routine 02/10/2022 11:30 AM EDT Autoimmune hepatitis [...] have questions, please contact the health healthcare administrator that requested your imaging first. ?Kashmir Lindsay, Staff Physician Electronically Signed Final Report ?? 08/17/2022 02:12 pm Narrative 08/17/2022 2:12 PM EDT Abdominal ? (Signed Final 08/17/2022 02:12 pm) PATIENT INFO: ID #: ? [id number] ?: ??[birth year] (71 yrs)(F) Name: ? PREMA SALGADO ?Visit Date: 08/17/2022 10:53 am PERFORMED BY: Attending: ?Neftali LUTHER, [place] Resident: ? Milagros LUTHER, James Curtis Performed By: ? Angelina Crystal RDMS Referred By: ?IRENE LAMAR Location: ? [place] SERVICE(S) PROVIDED: [facility] - Hepatology Protocol - Abdominal ?[id number] Limited Survey Single Organ or Quadrant - [id number] INDICATIONS: cirrhosis, screen for hcc; assess for [...] 08/17/2022 02:12 pm) PATIENT INFO: ID #: [id number] : [birth year] (71 yrs)(F) Name: PREMA SALGADO Visit Date: 08/17/2022 10:53 am PERFORMED BY: Attending: Kashmir Lindsay MD Resident: James Linares MD Performed By: Angelina Crystal RDMS Referred By: IRENE LAMAR Location: [place] [facility] - Hepatology Protocol - Abdominal [id number] Limited Survey Single Organ or Quadrant - [id number] INDICATIONS: cirrhosis, screen for hcc; assess for [...] PM Electronically signed by: Kashmir Lindsay MD, Radiology [place] ([phone]), at 08/17/2022 2:04 PM Thank you for letting us participate in the care of this patient. If you are a health care provider and have any questions regarding this report, please contact the number above. For patients who have questions, please contact the health healthcare administrator that requested your imaging first. Kashmir Lindsay, Staff Physician Electronically Signed Final Report 08/17/2022 02:12 pm Irene Lamar MD IMG US GEN ORDERABLE S * [id number] (02/10/2022 11:30 AM EDT) Narrative Irene Lamar MD - 02/10/2022 11:30 AM EDT Irene Lamar MD ? 02/11/2022 ??8:29 AM [facility] Liver Fibrosis Assessment Report Indication: ??AIH/PBC, assess for portal htn Performed by: ??HOWARD Rockwell Procedure: Vibration Controlled Transient Elastography (VCTE) or Fibroscan [place] Protocol: Patient's identity, procedure and site were [...] present documented in this encounter Care Teams Cut Off Worker Relationship Specialty Start Date End Date Nicolasa Prince APRN [address] [place] [address] PCP - General Family Medicine 01/08/21 documented as of this encounter
--- OUTSIDE RECORDS SUMMARY | 2024-01-25 19:17 | XMS_ITS | Encounter Summary ---
Author Organization [facility] [place] [address] Care Team Providers Care Mechanical Maintenance Engineer Name Role Phone Nicolasa Prince APRN Primary Care Provider +1- [phone] Encounter Details Date Type Department Care Team (Late st Contact Info) Description 11/24/2021 External Results [place] [address] [facility] [place] [address] Social History Tobacco Use Types Packs/Day Years [...] / CMP / Thyroid External Results (11/20/2021) Protein, Total 7.7 Albumin 3.8 Bilirubin, Total 1.1 Alkaline Phosphatase 68 Aspartate Aminotransferase 30 Alanine Aminotransferase 37 Hemoglobin A1c 7.9 Historical Provider [facility] documented in this encounter Visit Diagnoses Not on filedocumented in this encounter Care Teams Mechanical Maintenance Engineer Relationship Specialty Start Date End Date Nicolasa Prince APRN [address] [place], [place] [address] PCP - General Family Medicine 01/08/21 documented as of this encounter
--- OUTSIDE RECORDS SUMMARY | 2024-01-25 19:17 | XMS_ITS | Encounter Summary ---
Author Organization [facility] Address [facility] [place] [address] Care Team Providers Care Welding Machine Operator Gas Name Role Phone Nicolasa Prince APRN Primary Care Provider +1- [phone] Encounter Details Date Type Department Care Team (Late st Contact Info) Description 02/15/2022 Orders [place] [address] Irene Lara MD [facility] [place] [address] Hepatic cirrhosis, unspecified hepatic cirrhosis type, unspecified [...] colon documented in this encounter Care Teams Welding Machine Operator Gas Relationship Specialty Start Date End Date Nicolasa Prince APRN [address] [place] [address] PCP - General Family Medicine 01/08/21 documented as of this encounter
--- OUTSIDE RECORDS SUMMARY | 2024-01-25 19:17 | XMS_ITS | Encounter Summary ---
Author Organization [facility] [place] [address] Care Team Providers Care Radiology Transcriptionist Name Role Phone Nicolasa Prince APRN Primary Care Provider +1- [phone] Encounter Details Date Type Department Care Team [...] on filedocumented in this encounter Care Teams Radiology Transcriptionist Relationship Specialty Start Date End Date Nicolasa Prince APRN [address] [place] [address] PCP - General Family Medicine 01/08/21 documented as of this encounter
--- OUTSIDE RECORDS SUMMARY | 2024-01-25 19:17 | XMS_ITS | Encounter Summary ---
Author Organization [facility] [place] [address] Care Team Providers Care Web Operations Manager Name Role Phone Nicolasa Prince APRN Primary Care Provider +1- [phone] Encounter Details Date Type Department Care Team (Late st Contact Info) Description 10/14/2021 External Results [place] [address] Irene Lara MD [facility] [place] [address] Social History Tobacco Use Types Packs/Day Years [...] Chemistery External Lab Panel (09/25/2021) Albumin 3.7 Aspartate Aminotransferase 37 Alanine Aminotransferase 37 Alkaline Phosphatase 85 Bilirubin, Total 0.8 Protein, Total 7.5 Historical Provider POINT OF CARE PAMELA T ORDERABLES documented in this encounter Visit Diagnoses Not on filedocumented in this encounter Care Teams Web Operations Manager Relationship Specialty Start Date End Date Nicolasa Prince APRN [address] [place], [place] [address] PCP - General Family Medicine 01/08/21 documented as of this encounter
--- OUTSIDE RECORDS SUMMARY | 2024-01-25 19:17 | XMS_ITS | Encounter Summary ---
Author Organization [facility] [place] [address] Care Team Providers Care Order Filler Name Role Phone Nicolasa Prince APRN Primary Care Provider +1- [phone] Encounter Details Date Type Department Care Team (Late st Contact Info) Description 06/09/2022 Telephone [place] [address] Mai Larson Social History Tobacco Use Types Packs/Day Years Used Date Smoking Tobacco: Former Smokeless Tobacco: Never Sex and Gender Information Value Date Recorded Sex Assigned at Not on file Gender Identity Not on file Sexual Orientation Not on file documented as of this encounter Miscellaneous Notes * Telephone Encounter - Mai Larson - 06/09/2022 10:01 AM EST Cookie Salgado [id number] Diagnosis/Indication: cirrhosis screen for varices, screening colonoscopy [...] Upper Endoscopy & Colonoscopy before? Yes: Date [facility], 5.5 years ago, doesn't remember what [...] No 18. You must have a responsible democrat who will drive you to your procedure, [...] on filedocumented in this encounter Care Teams Order Filler Relationship Specialty Start Date End Date Nicolasa Prince APRN [address] [place] [address] PCP - General Family Medicine 01/08/21 documented as of this encounter
--- OUTSIDE RECORDS SUMMARY | 2024-01-25 19:17 | XMS_ITS | Encounter Summary ---
Author Organization [facility] Address [facility] [place] [address] Care Team Providers Care Mobile Pet Groomer Name Role Phone Nicolasa Prince YULIA Primary Care Provider +1- [phone] Encounter Details Date Type Department Care Team (Latest Contact Info) Description 02/10/2022 9:51 AM EDT - 02/10/2022 11:59 PM EDT Hospital [place] [phone] Carolynn Lamar MD [facility] [place] [address] Primary biliary cholangitis; Hepatic cirrhosis, unspecified hepatic [...] dilatation. Electronically signed by: Fiordaliza Fabian MD, [facility] ([phone]), at 02/10/2022 10:32 AM Thank you for letting us participate in the care of this patient. If you are a health care provider and have any questions regarding this report, please contact the number above. For patients who have questions, please contact the health day care home provider that requested your imaging first. ? Fiordaliza Fabian, Staff Physician Electronically Signed Final Report ?? 02/10/2022 10:39 am Narrative 02/10/2022 10:39 AM EDT Abdominal ? (Signed Final 02/10/2022 10:39 am) PATIENT INFO: ID #: ? [id number] ?: ??[birth year] (71 yrs)(F) Name: ? PREMA SALGADO ?Visit Date: 02/10/2022 10:18 am PERFORMED BY: Performed By: ? Sarahi Flores RDMS Attending: ?Caren LUTHER, Fiordaliza Prado Referred By: ?CAROLYNN LAMAR Location: ? [place] SERVICE(S) PROVIDED: UABDLIMHEP - Hepatology Protocol - Abdominal ?95090 Limited Survey Single Organ or Quadrant - [id number] INDICATIONS: Cirrhosis, screen for HCC COMPARISON: MRI [...] 02/10/2022 10:39 am) PATIENT INFO: ID #: [id number] : 54 (71 yrs)(F) Name: PREMA SALGADO Visit Date: 02/10/2022 10:18 am PERFORMED BY: Performed By: Sarahi Flores RDMS Attending: Fiordaliza Fabian MD Referred By: CAROLYNN LAMAR Location: [place] [facility] Hepat[facility] Protocol - Abdominal 94789 Limited Survey Single Organ or Quadrant - [id number] INDICATIONS: Cirrhosis, screen for HCC COMPARISON: MRI [...] dilatation. Electronically signed by: Fiordaliza Fabian MD, [facility] ([phone]), at 02/10/2022 10:32 AM Thank you for letting us participate in the care of this patient. If you are a health care provider and have any questions regarding this report, please contact the number above. For patients who have questions, please contact the health day care home provider that requested your imaging first. Fiordaliza Fabian, Staff Physician Electronically Signed Final Report 02/10/2022 10:39 am Carolynn Lamar MD IMG US GEN ORDERABLE S documented in this encounter Visit Diagnoses Diagnosis Primary biliary cholangitis Hepatic cirrhosis, unspecified hepatic cirrhosis type, unspecified whether ascites present documented in this encounter Care Teams Mobile Pet Groomer Relationship Specialty Start Date End Date Suresh Nicolasa Chan, YULIA [address] [place] [address] PCP - General Family Medicine 01/08/21 documented as of this encounter
--- OUTSIDE RECORDS SUMMARY | 2024-01-25 19:17 | XMS_ITS | Encounter Summary ---
Author Organization [facility] Address [facility] [place] [address] Care Team Providers Care Dentist Name Role Phone Nicolasa Prince YULIA Primary Care Provider +1- [phone] Reason for Visit * Auth/Cert (Routine) Specialty [...] GI ENDOSCOPY COLONOSCOPY, DIAGNOSTIC Elin Carlson MD [facility] [place] [address] [facility] Referral ID Status Reason Start Date Expiration Date Visits Re quested Visits Authorized [id number] 1 1 Encounter Details Date Type Department Care Team (Latest Contact Info) Description 08/07/2022 12:50 PM EDT - 08/07/2022 4:14 PM EDT Hospital Encounter [place] [address] Elin Carlson MD [facility] [place] [address] Discharge Disposition: Home Social History Tobacco Use [...] the day after the test, use an ajkt-xtz-lxdnjuz spray or lozenges to numbyour throat. Warm [...] occurs, please contact your doctor. Please call [phone] before 8pm Mon-Fri with problems, questions, or concerns. If you call after 8pm or on weekends, call the Hospital at [phone] and ask for the Contact Lens Blocker machine long goods helper and the rotary lithographic press operator will contact that person for you. [...] more? You can view health information on [employer], your personal patient account. Log in or sign up today. Content Version: 12.2 ?? [id number] [employer]. Care instructions adapted under license by [facility]. If you have questions about a medical condition or this instruction, always ask your healthcare professional. [employer] disclaims any warranty or liability for your [...] Diagnosis Code ??? Atherosclerotic heart disease of [place] coronary artery without angina pectoris I25.10 EXAM: [...] 2:57 PM EDT Colonoscopy, Flex, W/Control, Bleeding (13872) 08/07/2022 2:21 PM EDT Hepatic cirrhosis, unspecified hepatic cirrhosis type, unspecified whether ascites present Screening for colon cancer Colonoscpy, Flex, W/Dir Submuc Inject (33734) 08/07/2022 2:21 PM EDT Hepatic cirrhosis, unspecified hepatic cirrhosis type, unspecified whether ascites present Screening for colon cancer Colonoscopy, Robert Ortiz, Gauri ([id number]) 08/07/2022 2:21 PM EDT Hepatic cirrhosis, unspecified hepatic cirrhosis type, unspecified whether ascites present Screening for colon cancer Upper GI Endoscopy, Diagnostic (42773) 08/07/2022 2:21 PM EDT Hepatic cirrhosis, unspecified hepatic cirrhosis type, unspecified whether ascites present Screening for colon cancer UPPER GI ENDOSCOPY Routine 08/07/2022 2: 10 PM EDT COLONOSCOPY Routine 08/07/2022 2:10 PM EDT documented in this encounter Results * Specimen to Pathology (08/07/2022 3:25 PM EDT) AP Specimen 08/07/2022 3:25 PM EDT 08/07/2022 3:25 PM EDT Narrative [facility] - 08/07/2022 3:25 PM EDT Specimen requisition ordered. ??Separate Pathology report to follow Elin Carlson MD PATHOLOGY/CYTOLOGY O MEENU Performing Organization Address [facility] [place] [address] * Specimen to Pathology (08/07/2022 3:25 PM EDT) AP Specimen 08/07/2022 3:25 PM EDT 08/07/2022 3:25 PM EDT Narrative [facility] - 08/07/2022 3:25 PM EDT Specimen requisition ordered. ??Separate Pathology report to follow Elin Carlson MD PATHOLOGY/CYTOLOGY O RDMILLIE Performing Organization Address City/[facility]/[place]IP [place] [address] * Surgical Pathology Report (08/07/2022 2:57 PM EDT) Final Diagnosis [id number] ? Location: 4T; EA12; A The signing [...] Arpit Verified: ??08/26/2022 16:10 ??Pathologist Performed at: ??-[facility] Dept. of [place]ology, [place] [address] Housing Relocation: Stefan Min MD, FCAP, ??CLIA Certificate: [id number] SPECIMEN(S) SUBMITTED A - transverse colon polyp, [...] labeled B1-B2. ??shb 08/26/2022 4:10 PM EDT [facility] GI Biopsy 08/07/2022 2:57 PM EDT 08/07/2022 2:57 PM EDT GI Biopsy 08/07/2022 2:57 PM EDT 08/07/2022 2:57 PM EDT Elin Carlson MD PATHOLOGY/CYTOLOGY O MEENU Performing Organization Address [facility]/State/ZIP Co de Phone Number [facility] [place] [address] [facility] [place] [address] * UPPER GI ENDOSCOPY (08/07/2022 2:10 PM EDT) Pathologist [facility] UPPER GI ENDOSCOPY [facility] Endoscopy Procedure Date: 08/07/2022 2:10 PM ? Patient Name: Cookie Salgado ? N: [id number] ? Date of : 1950 ? Age: 71 ? Order #: [id number] ? Instrument Name: EG-760R- [id number] ? Procedure: ? Upper GI endoscopy Indications: ? Cirrhosis rule out esophageal ? varices Providers: ? Elin Carlson MD, Leticia Bolton ? Damon Ca MD: ?Nicolasa H. Suresh Medicines: ? Midazolam 4 mg IV, Fentanyl [...] PM PROVATION 08/07/2022 2:10 PM EDT Nicolasa Chan Philperez YULIA [facility]DERABLES PROVATION * COLONOSCOPY (08/07/2022 2:10 PM EDT) COLONOSCOPY [facility] Endoscopy Procedure Date: 08/07/2022 2:10 PM ? Patient Name: Cookie Salgado ? N: [id number] ? Date of : 1950 ? Age: 71 ? Order #: [id number] ? Instrument Name: [id number]- [id number] ? Procedure: ? Colonoscopy Indications: ? Screening [...] ? was evaluated using the BBPS ? ([place] Bowel Preparation Scale) ? with scores of: [...] Procedure Code(s): ? --- Professional --- ? 53990, Colonoscopy, flexible; with ? endoscopic mucosal resection ? 07283, 59, Colonoscopy, flexible; ? with removal of tumor(s), polyp(s), ? or other lesion(s) by snare ? technique CPT copyright 2020 [employer]. All rights reserved. The codes documented in this report are preliminary and upon sustainability coordinator review may be revised to meet current [...] 1350 (New Bag - Prov ider: Priyanka Becerra, ALYSA) PRN Medication Order 08/05/2022 08/06/2022 08/07/2022 benzocaine [...] RN) documented in this encounter Care Teams Dentist Relationship Specialty Start Date End Date Nicolasa Prince, [address] [place] [address] PCP - General Family Medicine 01/08/21 documented as of this encounter
--- OUTSIDE RECORDS SUMMARY | 2024-01-25 19:17 | XMS_ITS | Encounter Summary ---
Author Organization [facility] [place] [address] Care Team Providers Care Satellite Dish Installer Name Role Phone Nicolasa Prince APRN Primary Care Provider +1- [phone] Encounter Details Date Type Department Care Team (Late st Contact Info) Description 07/22/2022 External Results [place] [address] Irene Lara MD [facility] [place] [address] Social History Tobacco Use Types Packs/Day Years [...] (07/22/2022) Sodium 139 Potassium 5.0 Chloride 104 Carbon Dioxide 28 Blood Urea Nitrogen 33 Creatinine 1.2 Est Glomerular Filtration Rate 49 Glucose 157 Calcium 10.0 Protein, Total 8.3 Albumin 3.9 Bilirubin, Total 0.7 Alkaline Phosphatase 90 Aspartate Aminotransferase 28 Alanine Aminotransferase 29 Historical Provider [facility] documented in this encounter Visit Diagnoses Not on filedocumented in this encounter Care Teams Satellite Dish Installer Relationship Specialty Start Date End Date Nicolasa Prince APRN [address] [place] [address] PCP - General Family Medicine 01/08/21 documented as of this encounter
--- OUTSIDE RECORDS SUMMARY | 2024-01-25 19:17 | XMS_ITS | Encounter Summary ---
Author Organization [facility] [place] [address] Care Team Providers Care Engine Pilot Name Role Phone Nicolasa Prince APRN Primary Care Provider +1- [phone] Encounter Details Date Type Department Care Team (Late st Contact Info) Description 07/22/2021 1:30 PM EDT Office [place] [address] Carolynn Lamar MD [facility] [place] [address] Primary biliary cholangitis; Type 2 diabetes mellitus [...] [place] and she was managed by a laser printing operator at [facility]. Her records were extensively reviewed today [...] been normal sinceapproximately 2017. She moved to [place] about a year ago. She is living [...] Lamar MD Section of Gastroenterology & Hepatology [address] [place] [address] Cc: Nicolasa Prince APRN SURGICAL PATHOLOGY REPORT ? Patient: PREMA SALGADO ?MR #: [id number] ?Submitted by: Elie Moreno MD FINAL DIAGNOSIS [...] the ductules cannot be definitively distinguished from stebbins bile ducts. ??There is patchy periportal hepatocellular [...] had a prior liver biopsy reviewed at [facility] (see accession number [id number]), although the slides are not available for [...] dilatation. Electronically signed by: Fiordaliza Fabian MD, [facility] ([phone]), at 02/10/2022 10:32 AM Thank you for letting us participate in the care of this patient. If you are a health care provider and have any questions regarding this report, please contact the number above. For patients who have questions, please contact the health child care that requested your imaging first. ? Fiordaliza Fabian, Staff Physician Electronically Signed Final Report ?? 02/10/2022 10:39 am Narrative 02/10/2022 10:39 AM EDT Abdominal ? (Signed Final 02/10/2022 10:39 am) PATIENT INFO: ID #: ? [id number] ?: ??[birth year] (71 yrs)(F) Name: ? PREMA SALGADO ?Visit Date: 02/10/2022 10:18 am PERFORMED BY: Performed By: ? Sarahi Flores RDMS Attending: ?Caren LUTHER, Fiordaliza Prado Referred By: ?CAROLYNN HENSLEYR Location: ? [place] [facility] Hepat[facility] Protocol - Abdominal ?96113 Limited Survey Single Organ or Quadrant - [id number] INDICATIONS: Cirrhosis, screen for HCC COMPARISON: MRI [...] 02/10/2022 10:39 am) PATIENT INFO: ID #: [id number] : [birth year] (71 yrs)(F) Name: PREMA SALGADO Visit Date: 02/10/2022 10:18 am PERFORMED BY: Performed By: Sarahi Flores RDMS Attending: Fiordaliza Fabian MD Referred By: CAROLYNN LAMAR Location: [place] SERVICE(S) PROVIDED: [facility] - Hepatology Protocol - Abdominal 26511 Limited Survey Single Organ or Quadrant - [id number] INDICATIONS: Cirrhosis, screen for HCC COMPARISON: MRI [...] questions, please contact the health child care that requested your imaging first. Fiordaliza Fabian, Staff Physician Electronically Signed Final Report 02/10/2022 10:39 am Carolynn Lamar MD IMG US GEN ORDERABLE S * Prothrombin Time (07/22/2021 11:40 AM EDT) Prothrombin Time 11.6 9.4 - 12.5 sec [facility] International Normalization Ratio 1.0 [facility] Comment: An [...] MD HEMATOLOGY ORDERABLE S Performing Organization Address [facility] Co de Phone Number [facility] [place] [address] * AFP tumor marker (07/22/2021 11:40 AM EDT) Alpha Fetoprotein 3.4 <=8.3 ng/mL [facility] Blood 07/22/2021 11:4 0 AM EDT 07/22/2021 11:55 AM EDT Narrative Resulting Agency Comment Spec In Lab Carolynn Lamar MD CHEMISTRY ORDERABLES Performing Organization Address [facility]/ZIP Co de Phone Number [facility] [place] [address] * (ABNORMAL) Comprehensive metabolic panel (non-fasting) (07/22/2021 11:40 AM EDT) Glucose 156 65 - 199 mg/dL [facility] Comment:Diabetes: >=200 mg/d L plus symptoms Blood Urea Nitrogen 23(H) 8 - 18 mg/dL [facility] Creatinine 0.88 0.70 - 1.20 mg/dL [facility] Sodium 135 135 - 145 mmol/L [facility] Potassium 4.4 3.5 - 5.0 mmol/L [facility] Comment: Please note: ??Patients with WBC >100,000 may have falsely elevated Potassium levels. ??For accurate Potassium quantification in these patients send serum separator tube (gold top) for subsequent determinations. ??Contact the Clinical Chemistry Laboratory if there are any questions. Chloride 104 98 - 107 mmol/L [facility] Carbon Dioxide 18(L) 22 - 31 mmol/L [facility] Anion Gap 13 5 - 15 mmol/L [facility] Calcium 10.0 8.5 - 10.5 mg/dL [facility] Protein, Total 7.8 6.1 - 8.0 g/dL [facility] Albumin 4.5 3.2 - 5.2 g/dL [facility] Aspartate Aminotransferase 29 0 - 30 unit/L [facility] Alanine Aminotransferase 26 0 - 30 unit/L [facility] Alkaline Phosphatase 89 35 - 105 unit/L [facility] Bilirubin, Total 0.7 0.2 - 1.3 mg/dL [facility] Est Glomerular Filtration Rate 68 >=60 mL/min/1. 73 m?? [facility] Comment: This patient? s [...] Lamar MD CHEMISTRY ORDERABLES Performing Organization Address City/[facility] Co de Phone Number [facility] [place] [address] documented in this encounter Visit Diagnoses Diagnosis Primary biliary cholangitis Type 2 diabetes mellitus without complication, without long-term current use of insulin Hepatic cirrhosis, unspecified hepatic cirrhosis type, unspecified whether ascites present Primary biliary cholangitis Hepatic cirrhosis, unspecified hepatic cirrhosis type, unspecified whether ascites present documented in this encounter Care Teams Engine Pilot Relationship Specialty Start Date End Date Nicolasa Prince APRN [address] [place] [address] PCP - General Family Medicine 01/08/21 documented as of this encounter
--- OUTSIDE RECORDS SUMMARY | 2024-01-25 19:17 | XMS_ITS | Encounter Summary ---
[place] [address] Care Team Providers Care Fire Sprinkler Installer Name Role Phone Nicolasa Prince APRN Primary Care Provider +1- [phone] Reason for Referral * Diagnostic Test (Routine) - Closed Specialty Diagnoses / Procedures Referred By Minh miguel Referred To Contact Radiology Diagnoses Primary biliary cholangitis Procedures MRI Abdomen wwo Contrast (Generic) Harmony Dobson APRN [facility] [place] [address] [place] [address] Referral ID Status Reason Start Date Expiration Date V isits Requested Visits Authorized [id number] Closed Specialty Service Requested 02/19/2021 08/20/2022 1 1 Reason for Visit * Reason Comments GI Problem * Consultation (Routine) - Closed Specialty Diagnoses / Procedures Referred By Minh miguel Referred To Contact Gastroenterology Diagnoses Primary biliary cirrhosis Primary biliary cirrhosis Nicolasa Prince APRN [address] [place] [address] [facility] [address] [place] [address] Referral ID Status Reason Start Date Expiration Date V isits Requested Visits Authorized [id number] Closed Consult, Test & Treat Connection Center PCP Updated and/or Approved 12/25/2020 06/27/2021 6 6 Encounter Details Date Type Department Care Team (Late st Contact Info) Description 02/19/2021 9:00 AM EDT Office [place] [id number] Harmony Dobson APRN [facility] [place] [address] Primary biliary cholangitis; Hepatic cirrhosis, unspecified hepatic [...] HEPATOLOGY NEW PATIENT CONSULTATION Cookie Salgado 1950 CLIENT ACCOUNT SPECIALIST: HARMONY DOBSON APRN PCP: Nicolasa Prince APRN Requesting Provider: REASON FOR CONSULTATION Primary biliary cholangitis, AIH, cirrhosis transfer of care HISTORY OF PRESENT ILLNESS Cookie Salgado is a 70 y.o. year old female with history of Primary biliary cholangitis who presents today to establish care for her PBC. She was previously followed by hepatology in [place] and recently moved to [place]. She was last followed by GI at [place] - Dr. Yasmin Fletcher. Takes Ursodiol 500mg [...] though she has cirrhosis. She moved to [place] at end of October 2020. She is living in the [facility] with her brother and has had [...] T2 correlate or washout/pseudocapsule (LI-RADS 3). A product representative lesion is seen on series 9 [...] D3,) 50 mcg (2,000 unit) [facility]. ??? 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 Lives near 2 brothers. Alcohol: [...] T2 correlate or washout/pseudocapsule (LI-RADS 3). A product representative lesion is seen on series 9 [...] previously followed by Dr. Yasmin Woodson at [facility] and has been on a relatively [...] Dobson APRN Section of Gastroenterology [place] [address] Copy: Nicolasa Prince APRN [address] / [facility] [address] documented in this encounter Plan of Treatment [...] whether ascites present COMPREHENSIVE METABOLIC PANEL Routine 02/19/2021 10:54 AM EDT Hepatic cirrhosis, [...] who have questions please contact the health hourly caregiver that requested your imaging first. ? Electronically signed by: Ramon Verduzco MD, [facility] ([phone]), at 07/22/2021 11:29 AM Narrative 07/22/2021 11:29 [...] patients who have questions please contactthe health hourly caregiver that requested your imaging first. Harmony Dobson CONDITIONING ROOM WORKER IMG MRI ORDERABLES * Differential, Automated (02/19/2021 10:54 AM EDT) Neutrophil % 65.2 % [facility] Neutrophil Absolute 3.05 1.70 - 6.10 x10(3)/[facility] Lymph % 23.9 % [facility] Lymphocytes Abs 1.1 0.9 - 3.2 x10(3)/[facility] Monocyte % 8.8 % [facility] Monocyte Abs 0.4 0.3 - 0.9 x10(3)/[facility] Eos % 1.3 % [facility] Eosinophils Abs 0.1 0.0 - 0.4 x10(3)/[facility] Basophil % 0.6 % [facility] Baso Absolute 0.0 0.0 - 0.1 x10(3)/[facility] Immature Gran % 0.20 % [facility] Comment: Immature granulocytes(IG's)percentage and absolute count will include metamyelocytes, myelocytes, and promyelocytes. Blood smears from CBCs yielding IG's will be scanned manually for concordance. If this scan disagrees with the automated IG or if promyelocytes are noted, a manual differential will be performed. Immature Gran Absolute 0.01 0.00 - 0.04 x10(3)/[facility] Blood 02/19/2021 10:5 4 AM EDT 02/19/2021 11:02 AM EDT Narrative Resulting Agency Comment Spec In Lab Harmony Dobson CONDITIONING ROOM WORKER HEMATOLOGY ORDERAB LES Performing Organization Address City/[facility]/ZIP Co de Phone Number [facility] [address] * (ABNORMAL) Hemogram (02/19/2021 10:54 AM EDT) White Blood Cell 4.7 4.0 - 9.5 x10(3)/mc L [facility] Red Blood Cell 5.15 4.00 - 5.21 x10(6)/mc L [facility] Hemoglobin 16.6(H) 11.7 - 15.5 g/dL [facility] Hematocrit 48.4(H) 35.7 - 45.8 % [facility] Mean Cell Volume 94.0 82.6 - 94.4 fL [facility] Mean Cell Hemoglobin 32.2(H) 27.1 - 32.0 pg [facility] Mean Cell Hemoglobin Concentration 34.3 31.7 - 35.0 g/dL [facility] Platelet 146 145 - 357 x10(3)/mc L [facility] RDW Standard Deviation 46.0 37.0 - 46.0 fL [facility] RDW coefficient of variation 13.3 11.5 - 14.1 % [facility] Mean Platelet Volume 10.6 7.6 - 12.9 fL [facility] NRBC% auto 0.0 % [facility] NRBC Absolute 0.000 0.000 - 0.000 x10(3)/mc L [facility] Blood 02/19/2021 10:5 4 AM EDT 02/19/2021 11:02 AM EDT Narrative Resulting Agency Comment Spec In Lab Harmony Dobson YULIA HEMATOLOGY ORDERAB LES Performing Organization Address City/[facility]/ZIP Co de Phone Number [facility] [address] * (ABNORMAL) Hemoglobin A1c (02/19/2021 10:54 AM EDT) Hemoglobin A1c 8.0(H) 4.3 - 5.6 % [facility] Comment: Reference Range: 4.3 - [...] Mellitus, Diabetes Care 2013; 36: Suppl. 1, S67-99 Estimated Average Glucose 181 mg/dL [facility] Comment: eAG equivalents for HbA1c [...] into estimated average glucose values. ??Diabetes Care 2008:31(8):7884-8550. Blood 02/19/2021 10:5 4 AM EDT 02/19/2021 11:02 AM EDT Narrative Resulting Agency Comment Spec In Lab Harmony Mccallumzahira BENDER CHEMISTRY ORDERABL ES Performing Organization Address [facility] de Phone Number [facility] [address] * Prothrombin Time (02/19/2021 10:54 AM EDT) Pathologist [facility] Prothrombin Time 11.7 9.4 - 12.5 sec [facility] International Normalization Ratio 1.0 [facility] Comment: An INR <2.0 indicates [...] Resulting Agency Comment Spec In Lab Harmony Mccallumzahira BENDER HEMATOLOGY ORDERAB LES Performing Organization Address [facility] de Phone Number [facility] [address] * AFP tumor marker (02/19/2021 10:54 AM EDT) [facility] Alpha Fetoprotein 3.0 <=8.3 ng/mL [facility] Blood 02/19/2021 10:5 4 AM EDT 02/19/2021 11:02 AM EDT Narrative Resulting Agency Comment Spec In Lab Harmony Mccallumzahira BENDER CHEMISTRY ORDERABL ES Performing Organization Address [facility] Co de Phone Number [facility] [address] * (ABNORMAL) Comprehensive metabolic panel (non-fasting) (02/19/2021 10:54 AM EDT) Pathologist [facility] Glucose 141 65 - 199 mg/dL [facility] Comment:Diabetes: >=200 mg/d L plus symptoms Blood Urea Nitrogen 23(H) 8 - 18 mg/dL [facility] Creatinine 0.79 0.70 - 1.20 mg/dL [facility] Sodium 136 135 - 145 mmol/L [facility] Potassium 4.2 3.5 - 5.0 mmol/L [facility] Comment: Please note: ??Patients with WBC >100,000 may have falsely elevated Potassium levels. ??For accurate Potassium quantification in these patients send serum separator tube (gold top) for subsequent determinations. ??Contact the Clinical Chemistry Laboratory if there are any questions. Chloride 104 98 - 107 mmol/L [facility] Carbon Dioxide 24 22 - 31 mmol/L [facility] Anion Gap 8 5 - 15 mmol/L [facility] Calcium 10.0 8.5 - 10.5 mg/dL [facility] Protein, Total 7.9 6.1 - 8.0 g/dL [facility] Albumin 4.3 3.2 - 5.2 g/dL [facility] Aspartate Aminotransferase 24 0 - 30 unit/L [facility] Alanine Aminotransferase 21 0 - 30 unit/L [facility] Alkaline Phosphatase 81 35 - 105 unit/L [facility] Bilirubin, Total 0.6 0.2 - 1.3 mg/dL [facility] Est Glomerular Filtration Rate 77 >=60 mL/min/1. 73 m?? [facility] Comment: This patient? s estimated [...] Lab Harmony Dobson APRN CHEMISTRY ORDERABL ES [facility] [place] [address] documented in this encounter Visit Diagnoses Diagnosis Primary biliary cholangitis Hepatic cirrhosis, unspecified hepatic cirrhosis type, unspecified whether ascites present Autoimmune hepatitis Screening for colon cancer Special screening for malignant neoplasms, colon Primary biliary cholangitis documented in this encounter Care Teams Fire Sprinkler Installer Relationship Specialty Start Date End Date Nicolasa Prince APRN [address] [place] [address] PCP - General Family Medicine 01/08/21 documented as of this encounter
--- OUTSIDE RECORDS SUMMARY | 2024-01-25 19:17 | XMS_ITS | Encounter Summary ---
Author Organization [facility] [place] [address] Care Team Providers Care Skin Piler Name Role Phone Nicolasa Prince YULIA Primary Care Provider +1- [phone] Encounter Details Date Type Department Care Team (Latest Contact Info) Description 02/10/2022 10:15 AM EDT Laboratory Appointment Lab [address] [place] [phone] Primary biliary cholangitis; Type 2 diabetes mellitus with other specified complication, unspecified whether piercing artist insulin use Social History Tobacco Use Types [...] mellitus with other specified complication, unspecified whether jail insulin use HC VENIPUNCTURE Routine 02/10/2022 11:06 AM EDT Primary biliary cholangitis documented in this encounter Results * (ABNORMAL) Differential, Automated (02/10/2022 11:06 AM EDT) Neutrophil % 70.8 % [facility] Neutrophil Absolute 2.95 1.70 - 6.10 x10(3)/[facility] Lymph % 18.2 % [facility] Lymphocytes Abs 0.8(L) 0.9 - 3.2 x10(3)/[facility] Monocyte % 9.1 % [facility] Monocyte Abs 0.4 0.3 - 0.9 x10(3)/[facility] Eos % 1.2 % [facility] Eosinophils Abs 0.0 0.0 - 0.4 x10(3)/[facility] Basophil % 0.5 % [facility] Baso Absolute 0.0 0.0 - 0.1 x10(3)/[facility] Immature Gran % 0.20 % [facility] Comment: Immature granulocytes(IG's)percentage and absolute count will include metamyelocytes, myelocytes, and promyelocytes. Blood smears from CBCs yielding IG's will be scanned manually for concordance. If this scan disagrees with the automated IG or if promyelocytes are noted, a manual differential will be performed. Immature Gran Absolute 0.01 0.00 - 0.04 x10(3)/[facility] Blood Venous Draw / Unknown 02/10/2022 11:06 AM EDT 02/10/2022 12:06 PM EDT Narrative Resulting Agency Comment Spec In Lab Irene Lara MD HEMATOLOGY ORDERABLE S [facility] [place] [address] * (ABNORMAL) Hemogram (02/10/2022 11:06 AM EDT) [facility] White Blood Cell 4.2 4.0 - 9.5 x10(3)/[facility] Red Blood Cell 5.02 4.00 - 5.21 x10(6)/mc L [facility] Hemoglobin 15.8(H) 11.7 - 15.5 g/dL [facility] Hematocrit 45.7 35.7 - 45.8 % [facility] Mean Cell Volume 91.0 82.6 - 94.4 fL [facility] Mean Cell Hemoglobin 31.5 27.1 - 32.0 pg [facility] Mean Cell Hemoglobin Concentration 34.6 31.7 - 35.0 g/dL [facility] Platelet 118(L) 145 - 357 x10(3)/mc L [facility] RDW Standard Deviation 43.9 37.0 - 46.0 fL [facility] RDW coefficient of variation 13.1 11.5 - 14.1 % [facility] Mean Platelet Volume 10.4 7.6 - 12.9 fL [facility] NRBC% auto 0.0 % [facility] NRBC Absolute 0.000 0.000 - 0.000 x10(3)/mc L [facility] Blood Venous Draw / Unknown 02/10/2022 11:06 AM EDT 02/10/2022 12:06 PM EDT Narrative Resulting Agency Comment Spec In Lab Irene Lara MD HEMATOLOGY ORDERABLE S [facility] [place] [address] * (ABNORMAL) Hemoglobin A1c (02/10/2022 11:06 AM EDT) Hemoglobin A1c 7.0(H) 4.3 - 5.6 % [facility] [...] Mellitus, Diabetes Care 2013; 36: Suppl. 1, S67-19 Estimated Average Glucose 155 mg/dL [facility] [...] into estimated average glucose values. ??Diabetes Care 2008:31(8):5115-7359. Blood 02/10/2022 11:0 6 AM EDT 02/10/2022 11:10 AM EDT Narrative Resulting Agency Comment Spec In Lab Irene Lara MD CHEMISTRY ORDERABLES [facility] [place] [address] * Hepatic Function Panel (02/10/2022 11:06 AM EDT) Protein, Total 7.4 6.1 - 8.0 g/dL [facility] Albumin 4.2 3.2 - 5.2 g/dL [facility] Aspartate Aminotransferase 21 0 - 30 unit/L [facility] Alanine Aminotransferase 17 0 - 30 unit/L [facility] Alkaline Phosphatase 71 35 - 105 unit/L [facility] Bilirubin, Total 0.6 0.2 - 1.3 mg/dL [facility] Bilirubin, Direct 0.2 0.0 - 0.3 mg/dL [facility] Blood 02/10/2022 11:0 6 AM EDT 02/10/2022 11:10 AM EDT Narrative Resulting Agency Comment Spec In Lab Irene Lara MD CHEMISTRY ORDERABLES [facility] [place] [address] documented in this encounter Visit Diagnoses Diagnosis Primary biliary cholangitis Type 2 diabetes mellitus with other specified complication, unspecified whether jail insulin use documented in this encounter Care Teams Skin Piler Relationship Specialty Start Date End Date Nicolasa Prince APRN [address] [place] [address] PCP - General Family Medicine 01/08/21 documented as of this encounter
--- OUTSIDE RECORDS SUMMARY | 2024-01-25 19:17 | XMS_ITS | Encounter Summary ---
Author Organization [facility] [place] [address] Care Team Providers Care Former Hand Name Role Phone Nicolasa Prince APRN Primary Care Provider +1- [phone] Reason for Visit * Reason Comments Medication Refill Encounter Details Date Type Department Care Team (Late st Contact Info) Description 07/17/2022 Refill [place] [address] Irene Lara MD [facility] [place] [address] Autoimmune hepatitis Social History Tobacco Use Types [...] labs. She would like orders faxed to [facility]. Orders sent. Provided patient with contact information for [facility] Lab. documented in this encounter Plan of Treatment Not on file documented as of this encounter Visit Diagnoses Diagnosis Autoimmune hepatitis documented in this encounter Care Teams Former Hand Relationship Specialty Start Date End Date Nicolasa Prince APRN [address] [place] [address] PCP - General Family Medicine 01/08/21 documented as of this encounter
--- OUTSIDE RECORDS SUMMARY | 2024-01-25 19:17 | XMS_ITS | Encounter Summary ---
Author Organization [facility] [place] [address] Care Team Providers Care Mechanical Manufacturing Technician Name Role Phone Nicolasa Prince APRN Primary Care Provider +1- [phone] Encounter Details Date Type Department Care Team (Late Contact Info) Description 09/04/2021 Telephone [place] [phone] Thania Wilson, RN Social History Tobacco Use [...] at 09/03/2021 10:04 AM EDT ----- No [facility] account. AIH/PBC- recently cut azathioprine dose. Could you call her and ask to repeat labs in 4 weeks? Thanks irene 09/04 Called pt; had to leave [facility]. Nurse contact info provided. Need to confirm current aza dose. 09/18 Called pt; she is scheduled for 09/25 blood draw at her PCP. Will plan to request those results. documented in this encounter Plan of Treatment Not on file documented as of this encounter Visit Diagnoses Not on filedocumented in this encounter Care Teams Mechanical Manufacturing Technician Relationship Specialty Start Date End Date Nicolasa Prince, ICE CRUSHER [address] [place] [address] PCP - General Family Medicine 01/08/21 documented as of this encounter
--- OUTSIDE RECORDS SUMMARY | 2024-01-25 19:17 | XMS_ITS | Encounter Summary ---
Author Organization [facility] [place] [address] Care Team Providers Care Sports Equipment Repairer Name Role Phone Nicolasa Prince APRN Primary Care Provider +1- [phone] Encounter Details Date Type Department Care Team (Late st Contact Info) Description 05/23/2022 Telephone [place] [phone] Alisia Driver Social History Tobacco Use Types [...] it can be handled by: Any Endoscopy Tube Machine Operator Helper documented in this encounter Plan of Treatment Not on file documented as of this encounter Visit Diagnoses Not on filedocumented in this encounter Care Teams Sports Equipment Repairer Relationship Specialty Start Date End Date Nicolasa Prince APRN [address] [place] [address] PCP - General Family Medicine 01/08/21 documented as of this encounter
--- NOTE | 2024-01-25 19:30 | DI.RAD_ITS ---
Exam(s) XR KNEE LT 3V AP,LAT,JURGEN EXAM: XR KNEE LT 3V AP,LAT,JURGEN CLINICAL HISTORY: pain s/p fall. TECHNIQUE: 2D digital imaging was performed of the left knee. Three images were obtained. AP, late ral and PA tunnel views were obtained. COMPARISON: No exams were available for comparison FINDINGS: BONES: No acute fracture is present. No bony destructive lesion is seen. There is an enthesophyte at the anterior patella. JOINTS: The knee is normally aligned. No joint effusion is seen. No loose body. SOFT TISSUE: Vascular calcifications are present. IMPRESSION: No acute fracture or dislocation. DATA REPOSITORY: RADIATION DOSE DELIVERED:
--- NOTE | 2024-01-25 19:30 | DI.CT_ITS ---
Exam(s) CT HEAD CERV SPINE FACIAL WO EXAM: CT HEAD CERV SPINE FACIAL WO CLINICAL HISTORY: fall, left orbital hematoma. TECHNIQUE: Imaging Protocol: Axial computed tomography images with coronal and sagittal reformatted images were created and reviewed COMPARISON: CT CT NECK W from 05/14/2021 FINDINGS: The examination is limited due to patient motion artifact. CT Head: Ventricles and Extra axial spaces: Normal in size and morphology for the patient's age. Hemorrhage: None. Cerebral parenchyma: No evidence of an acute territorial infarct. No mass effect is present. Midline shift: None. Brainstem/Cerebellum: Normal. Calvarium: Normal. Visualized Paranasal sinuses/Mastoids: Clear. Soft Tissues: There is left periorbital soft tissue swelling. There is also soft tissue swelling ove r the left forehead. CT Face: Facial Bones: No definite fracture is noted in facial bones. Sinuses and Mastoids: There is a mucous retention cyst in the right maxillary sinus. There is a sma ll mucous retention cyst in the floor of the left maxillary sinus. The remaining visualized paranasa l sinuses are clear. No fluid levels are seen. Globes, extraocular muscles, optic nerves and retrobulbar fat: Normal. Upper aerodigestive tract: Normal. Mandible and bilateral temporomandibular joints: Normal. Soft tissues: There is left periorbital soft tissue swelling. There is soft tissue swelling also see n over the left forehead. CT Cervical Spine: Bones: No acute fracture or subluxation. 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 Age-appropriate degenerative changes are seen in the cervical spine. There is straightenin g of the normal cervical lordosis. Soft Tissues: Unremarkable. Lung Apices: Clear. IMPRESSION: 1. No acute intracranial process. 2. No acute fracture or subluxation in the cervical spine. 3. No acute facial fracture. 4. Left periorbital soft tissue swelling/hematoma. Soft tissue swelling/hematoma over the left foreh ead. RADIATION DOSE DELIVERED: !Error Total DLP DATA REPOSITORY: All CT scans at this facility are submitted to the National Radiology Data Registry (NRDR) Dose Index Registry (DIR) with the [employer] (ACR). RADIATION OPTIMIZATION: All CT scans at this facility use at least one of these dose optimization te chniques: automated exposure control; mA and/or kV adjustment per patient size (includes targeted exa ms where dose is matched to clinical indication); or iterative reconstruction.
--- NOTE | 2024-01-25 19:31 | ED.GENADUL_ITS ---
Discharge Plan Disposition Patient Disposition: Home Condition: Stable Discharge Details Clinical Impression: Facial trauma, Head trauma, Contusion of knee, left Primary Care Provider: Nicolasa Prince ED Provider: Ramon Shah Home Meds and New Rx's Prescriptions: Continued eye promis zeaxantin/lutein 1 drp PO 1XD Jardiance 25 mg tablet 25 mg PO DAILY Rybelsus 14 mg tablet 14 mg PO DAILY cholecalciferol (vitamin D3) 25 mcg (1,000 unit) capsule 2,000 unit PO DAILY fenofibrate nanocrystallized 145 mg tablet 145 mg PO DAILY ursodiol 500 mg tablet 500 mg PO BID losartan 50 mg tablet 100 mg PO DAILY aspirin [Aspir-Aretha] 325 mg tablet,delayed release (DR/EC) 325 mg PO DAILY PRN Discharge Instructions Additional Instructions: Your imaging did not show any emergent findings such as head bleeding or broken bones If you have lingering pains in 1 to 2 weeks follow-up with your primary care provider If you feel more ill, develop severe pain or difficulty breathing return to the emergency department for reevaluation HPI General Mode of arrival: ambulatory . Date/Time Provider Initiated Documentation: 01/25/24 19:16 . Limitations to Documentation: no limitations . Information obtained by: patient . History of Present Illness 73 year old F presents to the emergency department with the chief complaint of fall, left periorbital hematoma, described as moderate, Quality is described as aching, and is localized to the head and face. Patient started experiencing this hour(s) (1) and it has been constant. No relieving factors improve symptom(s), No exacerbating factors reported . Patient notes denies chest pain and shortness of breath. Related Data Home Medications ?Medication ?Instructions ?Recorded ?Confirmed cholecalciferol (vitamin D3) 25 2,000 unit PO DAILY 04/28/21 01/25/24 mcg (1,000 unit) capsule fenofibrate nanocrystallized 145 145 mg PO DAILY 04/28/21 01/25/24 mg tablet ursodiol 500 mg tablet 500 mg PO BID 04/28/21 01/25/24 eye promis zeaxantin/lutein 1 drp PO 1XD 06/12/22 01/25/24 losartan 50 mg tablet 100 mg PO DAILY 06/12/22 01/25/24 aspirin 325 mg tablet,delayed 325 mg PO DAILY PRN 01/25/24 01/25/24 release (Aspir-Aretha) empagliflozin 25 mg tablet 25 mg PO DAILY 01/25/24 01/25/24 (Jardiance) semaglutide 14 mg tablet (Rybelsus) 14 mg PO DAILY 01/25/24 01/25/24 Allergies Allergy/AdvReac Type Severity Reaction Status Date / Time Egg Derived Allergy Severe Other (See Verified 01/25/24 08:02 Comment) mold Allergy Severe Other (See Verified 01/25/24 08:02 Comment) amoxicillin Allergy Intermediate Other (See Verified 01/25/24 08:02 Comment) ciprofloxacin Allergy Intermediate Other (See Verified 01/25/24 08:02 Comment) General Stated Complaint: HeadInjury ALONZO: 4 Review of Systems All systems reviewed & are unremarkable except as noted in HPI and below Constitutional Constitutional: Denies chills and Denies fever(s) Eyes Eyes: Denies loss of vision Cardiovascular Cardiovascular: Denies chest pain and Denies dyspnea Respiratory Respiratory: Denies cough and Denies dyspnea Gastrointestinal Gastrointestinal: Denies abdominal pain, Denies nausea and Denies vomiting Neurologic Neurologic: Denies loss of vision Exam Const General: no acute distress Orientation: alert [facility] Head: no palpable skull fracture and normocephalic Ears: external ears normal General nose exam: external nose normal Mouth: moist mucous membranes Eyes General: appearance normal, both eyes and all related structures Alignment and Position: alignment normal Conjunctivae: conjunctivae normal Pupils: PERRL EOM: EOM intact bilaterally Neck Neck: normal visual inspection and trachea midline Resp Effort & Inspection: normal respiratory effort and able to speak in complete sentences Cardio Rate: regular rate Skin General skin exam: no rashes or lesions noted Neuro General: patient alert and patient oriented x3 Extrem General: normal to inspection Psych Mental Status: mental status grossly normal Course Vital Signs Vital signs: Vital Signs Temperature 36.7 C 01/25/24 19:12 Pulse 79 01/25/24 19:12 Respiratory Rate 16 01/25/24 19:12 Blood Pressure 189/97 H 01/25/24 19:12 Temperature 36.7 C 01/25/24 19:12 Temperature Source Oral 01/25/24 19:12 Pulse 79 01/25/24 19:12 Respiratory Rate 16 01/25/24 19:12 Blood Pressure 189/97 H 01/25/24 19:12 Blood Pressure Position Sitting 01/25/24 19:12 Oxygen Delivery Method Room Air 01/25/24 19:12 Oxygen Flow Rate 0 01/25/24 19:12 Pain Level 6 01/25/24 19:12 Medical Decision Making 73-year-old female with a history of hypertension, hyperlipidemia, primary biliary cirrhosis, who comes in after a fall. She says there was raphael material on the ground that she was trying to clean up and one of them was stuck and she pulled on it and she lost balance, falling forward and hitting the left side of her head. She did not lose consciousness and denies preceding symptoms such as chest pain or difficulty breathing. She has a left periorbital hematoma, the eyes themselves look normal, she has intact range of motion of the eyes with no pain in the eye itself. She has a small abrasion just superior to the left orbit. No lacerations. She also has abrasions to the anterior knee that are superficial. She is full range of motion of the knee with mild tenderness to the patella. No midline C-spine, T-spine, L-spine tenderness or chest or abdomen tenderness. Given the facial hematoma and her age will obtain CT head, facial bones and C-spine, and obtain x-rays of the left knee. Patient stable still appears well. No new pain. Imaging of the head face and C-spine show no acute findings, left knee x-ray shows no acute findings as well. Discussed results with her, advised that the hematoma her face will typically take a few weeks for her to resolve. She will follow-up with her PCP as needed return precautions given Differential Diagnosis Differential Diagnosis: Facial hematoma, TBI Quality:SDOH Health Related Social Needs: No Data to Display PFSH All Active Problems (Updated 01/25/24 @ 21:00 by Ramon Shah MD) Contusion of knee, left (Acute) Head trauma (Acute) Facial trauma (Acute) Left arm pain (Acute) Hypertension (Chronic) Primary biliary cirrhosis (Acute) followed by [facility] Hepatology Esophageal varices without bleeding (Acute) Palpitations (Acute) Overweight (Acute) Atherosclerosis of coronary artery (Acute) PTCA and Stent Anxiety disorder, unspecified (Acute) Vitamin D deficiency, unspecified (Acute) Accelerated essential hypertension (Acute) Hyperlipidemia, unspecified (Acute) Type 2 diabetes mellitus without complications (Acute) LAST A1C=9.0 ON 04/24/21 rh Social History Smoking/Tobacco Use Status: Former Tobacco Use Quit Date: 05/03/04 Smoking risk assessment performed?: Yes Alcohol Intake: never Drug use: Never Substance use type: does not use Housing: house Do you feel safe at home: Yes Do you feel safe in your relationship?: Yes
--- NOTE | 2024-01-25 20:48 | DI.VRAD_ITS ---
PROCEDURE INFORMATION: Exam: XR Left Knee Exam date and time: 01/25/2024 8:03 PM Age: 73 years old Clinical indication: Injury or trauma; Fall; Blunt trauma; Knee; Left TECHNIQUE: Imaging protocol: Radiologic exam of the left knee. Views: 3 views. COMPARISON: No relevant prior studies available. FINDINGS: Bones/joints: No discrete or displaced fracture. No joint dislocation. Mild tricompartmental marginal osteophyte formation with borderline tricompartmental joint space loss. No significant joint effusion. Soft tissues: No focal abnormality. Vasculature: Scattered peripheral vascular calcifications. IMPRESSION: 1. No acute fracture or dislocation. 2. Mild degenerative changes. Dictated and Authenticated by: Ryley Land MD. Ordering:NGUYỄN Navarro MD
--- NOTE | 2024-01-25 20:52 | DI.VRAD_ITS ---
PROCEDURE INFORMATION: Exam: CT Head Without Contrast Exam date and time: 01/25/2024 7:53 PM Age: 73 years old Clinical indication: Injury or trauma; Blunt trauma (contusions or hematomas); Consciousness not specified; Orbit/periorbital; Injury date: 01/25/24; Injury details: Fall, left orbital hematoma TECHNIQUE: Imaging protocol: Computed tomography of the head without contrast. Radiation optimization: All CT scans at this facility use at least one of these dose optimization techniques: automated exposure control; mA and/or kV adjustment per patient size (includes targeted exams where dose is matched to clinical indication); or iterative reconstruction. COMPARISON: US SOFT TISSUE HEAD OR NECK 02/20/2021 2:08 PM FINDINGS: Brain: Normal. No hemorrhage. Unremarkable white matter. No mass effect. Cerebral ventricles: No ventriculomegaly. Paranasal sinuses: Visualized sinuses are unremarkable. No fluid levels. Mastoid air cells: Visualized mastoid air cells are well aerated. Bones: Unremarkable. No acute fracture. Soft tissues: Cephalohematoma noted overlying the left frontal bone. IMPRESSION: 1. Normal unenhanced CT scan of the brain. 2. Cephalohematoma noted overlying the left frontal bone. PROCEDURE INFORMATION: Exam: CT Maxillofacial Without Contrast Exam date and time: 01/25/2024 7:53 PM Age: 73 years old Clinical indication: Injury or trauma; Blunt trauma (contusions or hematomas); Consciousness not specified; Orbit/periorbital; Injury date: 01/25/24; Injury details: Fall, left orbital hematoma TECHNIQUE: Imaging protocol: Computed tomography of the face without contrast. Radiation optimization: All CT scans at this facility use at least one of these dose optimization techniques: automated exposure control; mA and/or kV adjustment per patient size (includes targeted exams where dose is matched to clinical indication); or iterative reconstruction. COMPARISON: US SOFT TISSUE HEAD OR NECK 02/20/2021 2:08 PM FINDINGS: Orbital cavities: Both globes are symmetric in appearance. No retrobulbar masses or fluid collections are noted. Paranasal sinuses: Minimal ethmoid sinus disease is identified in the right with a small mucous retention cyst/polyp in the maxillary sinuses [id number]-left. Bones: There is no evidence for acute fracture involving the facial bones. Soft tissues: Left-sided preorbital soft tissue edema is noted. IMPRESSION: 1. No evidence for acute fracture involving the facial bones. 2. Left-sided preorbital soft tissue edema. PROCEDURE INFORMATION: Exam: CT Cervical Spine Without Contrast Exam date and time: 01/25/2024 7:53 PM Age: 73 years old Clinical indication: Injury or trauma; Blunt trauma (contusions or hematomas); Consciousness not specified; Orbit/periorbital; Injury date: 01/25/24; Injury details: Fall, left orbital hematoma TECHNIQUE: Imaging protocol: Computed tomography of the cervical spine without contrast. Radiation optimization: All CT scans at this facility use at least one of these dose optimization techniques: automated exposure control; mA and/or kV adjustment per patient size (includes targeted exams where dose is matched to clinical indication); or iterative reconstruction. COMPARISON: CT NECK W 05/14/2021 8:50 AM FINDINGS: Bones: There is normal alignment of the cervical vertebral bodies and discs. There is no evidence for acute fracture. Osteoarthritic changes identified at the C4-C5, C5-C6 and C6-C7 levels. There is no evidence for spondylolysis or spondylolisthesis. Given the lack of intrathecal contrast and limitations of the study secondary to lack of intrathecal contrast there is no evidence for central spinal stenosis or cord compression. There is neural foraminal narrowing identified at multiple levels secondary to uncovertebral joint and facet joint arthropathy. Lungs: Lung apices are normal. Soft tissues: Unremarkable. IMPRESSION: 1. No evidence for acute fracture. 2. Osteoarthritic changes involving the cervical spine without underlying spinal stenosis or cord compression. Dictated and Authenticated by: Jay Chaves MD. Ordering:NGUYỄN Navarro MD
[2024-01-25 21:05] VITALS: BP 189/97; PULSE 79; RESP 16; TEMP 36.7
== END 2024-01-25 21:07 | disposition home or self-care (01) ==
PROVIDERS: Emergency Provider Emergency Medicine; PCP Nurse Practitioner Family
DX: S00.12XA Contusion of left eyelid and periocular area, initial encounter (principal); S09.8XXA Other specified injuries of head, initial encounter; S80.02XA Contusion of left knee, initial encounter; I10 Essential (primary) hypertension; E78.5 Hyperlipidemia, unspecified; Z95.5 Presence of coronary angioplasty implant and graft; Z79.82 Long term (current) use of aspirin; Z79.84 Long term (current) use of oral hypoglycemic drugs; E11.9 Type 2 diabetes mellitus without complications; W18.39XA Other fall on same level, initial encounter; Y93.89 Activity, other specified; Y92.014 Private driveway to single-family (private) house as the place of occurrence of the external cause
CPT/HCPCS: 73562; 99284; 70450; 70486; 72125; 99283

== ENCOUNTER 2024-03-31 00:06 | Outpatient (CLI) | payer MEDICARE, SELFPAY ==
--- NOTE | 2024-03-31 | DI.US_ITS ---
Exam(s) US ABDOMEN LIMITED EXAM: US ABDOMEN LIMITED CLINICAL HISTORY: PRIMARY BILIARY CHOLANGITIS, K74.3, CIRRHOSIS SCREEN FOR HCC TECHNIQUE: Ultrasound abdomen performed using standard protocol. COMPARISON: No exams were available for comparison FINDINGS: PANCREAS: Normal where visualized. LIVER: The liver has a coarsened echotexture. There is a nodular contour of the liver suggesting hep atic cirrhosis. Hepatopetal flow in the Portal Vein. The liver measures in 18.4 cm length. There is a 0.9 cm round hyperechoic lesion in the right lobe of the liver. GALLBLADDER: No evidence of cholelithiasis. No evidence of wall thickening. No pericholecystic fluid identified. BILIARY SYSTEM: Common bile duct measures < 7 mm. No intrahepatic biliary ductal dilation. MARTINEZ'S SIGN: Negative. RIGHT KIDNEY: Kidney is normal in size. No evidence of renal calculi. No evidence of hydronephrosis. There is a 1.4 x 1.2 x 1.8 cm simple cyst in the right kidney. No follow-up is recommended. ASCITES: None seen. IMPRESSION: 1. Nodular contour of the liver suggesting hepatic cirrhosis. 2. 0.9 cm hyperechoic nodule in the right lobe of the liver. This may represent a benign lesion such as a hepatic hemangioma. MRI of the liver without and with contrast should be considered for furthe r evaluation. Unexpected findings DATA REPOSITORY:
--- OUTSIDE RECORDS SUMMARY | 2024-03-31 00:08 | XMS_ITS | Encounter Summary ---
Author Organization [facility] Address [facility] [address] Care Team Providers Care Abrasive Mixer Name Role Phone Nicolasa Prince YULIA Primary Care Provider [phone]- [phone] Encounter Details Date Type Department Care Team (Latest Contact Info) Description 03/30/2023 9:10 AM EST - 03/30/2023 11:59 PM [facility] Hospital [place] [phone] Carolynn Lamar MD [facility] [place] [address] Primary biliary cholangitis; Hepatic cirrhosis, unspecified hepatic [...] have questions, please contact the health care associate that requested your imaging first. ? Ke Jay, Staff Physician Electronically Signed Final Report ?? 03/30/2023 12:27 pm Narrative 03/30/2023 12:28 PM EST Abdominal ? (Signed Final 03/30/2023 12:27 pm) PATIENT INFO: ID #: ? [id number] ?: ??[birth year] (72 yrs)(F) Name: ? PREMA SALGADO ?Visit Date: 03/30/2023 09:52 am PERFORMED BY: Attending: ?Pierre LUTHER, Ke Conklin Resident: ? Joseph LUTHER, Ada Barrow Performed By: ? Elba Milian RDMS Referred By: ?CAROLYNN LAMAR Location: ? [place] [facility] Protocol - Abdominal ?[id number] Limited Survey Single Organ or Quadrant - [id number] INDICATIONS: cirrhosis, screen for hcc COMPARISON: US: [...] 03/30/2023 12:27 pm) PATIENT INFO: ID #: [id number] : [birth year] (72 yrs)(F) Name: PREMA SALGADO Visit Date: 03/30/2023 09:52 am PERFORMED BY: Attending: Ke Jay MD Resident: Ada Ruiz MD Performed By: Elba Milian RDMS Referred By: CAROLYNN LAMAR Location: [place] SERVICE(S) PROVIDED: [facility] - Hepatology Protocol - Abdominal [id number] Limited Survey Single Organ or Quadrant - [id number] INDICATIONS: cirrhosis, screen for hcc COMPARISON: US: [...] have questions, please contact the health care associate that requested your imaging first. Ke Jay, Staff Physician Electronically Signed Final Report 03/30/2023 12:27 pm Carolynn Lamar MD IMG GEN ORDERABLE S documented in this encounter Visit Diagnoses Diagnosis Primary biliary cholangitis Hepatic cirrhosis, unspecified hepatic cirrhosis type, unspecified whether ascites present documented in this encounter Care Teams Abrasive Mixer Relationship Specialty Start Date End Date Nicolasa Prince APRN [address] [place] [id number] PCP - General Family Medicine 01/08/21 documented as of this encounter
--- OUTSIDE RECORDS SUMMARY | 2024-03-31 00:08 | XMS_ITS | Encounter Summary ---
Author Organization [facility] [place] [address] Care Team Providers Care Helmet Hat Sweatband Puncher Name Role Phone Nicolasa Prince APRN Primary Care Provider +1- [phone] Encounter Details Date Type Department Care Team (Late st Contact Info) Description 12/25/2022 External Results [place] [address] Irene Lara MD [facility] [place] [address] Social History Tobacco Use Types Packs/Day Years [...] on filedocumented in this encounter Care Teams Helmet Hat Sweatband Puncher Relationship Specialty Start Date End Date Nicolasa Prince APRN [address] [place] [id number] PCP - General Family Medicine 01/08/21 documented as of this encounter
--- OUTSIDE RECORDS SUMMARY | 2024-03-31 00:08 | XMS_ITS | Referral Summary ---
Author Organization [facility] Address [address] [place] [address] Care Team Providers Care Router Operator Radial Name Role Phone Unavailable Primary Care Provider Unavailabl e Encounters Date Type Department Care Team Description 01/11/2024 Lab Requisition [facility] Pathology & [place] [address] Outr Resulting Lab, Provider from Last 3 Months Social History Tobacco Use Types Packs/Day Years Used Date Smoking Tobacco: Never Assessed Comments Unknown Sex and Gender Information Value Date Recorded Sex Assigned at Not on file Legal Sex Female 12:35 EDT Gender Identity Not on file Sexual Orientation Not on file Plan of Treatment Not on file Procedures Procedure Name Priority Date/Time Associated Diagnosis Comments AFP TUMOR MARKER Routine 01/11/2024 11:0 0 EDT from Last 3 Months Results * AFP TUMOR MARKER (01/11/2024 11:00 EDT) AFP Tumor Marker <2.5 <8.1 ng/mL 01/12/2024 9:52 EDT [facility] Comment: AFP Tumor Marker cannot be interpreted in females. ?? NOTE: Serum AFP concentrations should not be interpreted as absolute evidence for the presence or absence of malignant disease. Assayed on Siemens ADVIA Centaur XPT using chemiluminescent technology. ??Values obtained by using different assay methods cannot be used interchangeably. Blood VENOUS BLOOD / Unknown 01/11/2024 11:00 EDT 01/11/2024 17:37 EDT us Provider Outr Resulting Lab CHEMISTRY & BLOOD GA S ORDERABLES Final Result [facility] [address] [place], [place] [id number] from Last 3 Months
--- OUTSIDE RECORDS SUMMARY | 2024-03-31 00:08 | XMS_ITS | Clinical Summary ---
Author Organization [facility] Address [facility] [place] [address] Care Team Providers Care Cable Engineer Name Role Phone Nicolasa Prince YULIA Primary Care Provider +1- [phone] Allergies Active Allergy Reactions Criticality Noted Date Comments Amoxicillin 01/22/2021 Ciprofloxacin 01/22/2021 Egg Derived Other (See Comments),Anaphylaxi s,Hives,Itching High 02/17/2013 Also Egg Metformin Nausea And Vomiting Low 10/29/2020 Mold Other (See Comments) 01/22/2021 Also SMUT Prjqyht-Gjp-Hir Reductase Inhibitors Low 10/25/2020 Other reaction(s): Myalgia/Myositis/A [...] 1 tablet by mouth daily. 90 tablet 1 03/23/2024 Active Ursodiol (Bridgette Forte) 500 mg tabletIndications:Au toimmune hepatitis Take 1 tablet by mouth 2 times daily. 180 tablet 1 03/23/2024 Active Active Problems Problem Noted Date Diagnosed Date Atherosclerotic heart diseas e of [place] coronary artery without angina pectoris 01/22/2021 Encounters Date Type Department Care Team Description 03/23/2024 [place] [id number] Irene Lara MD Autoimmune hepatitis 12/30/2023 1:43 PM EDT - 12/30/2023 11:59 PM EDT [place] [address] Nicolasa Prince APRN Cervical radiculopathy Discharge Disposition: Home from Last 3 Months Social History Tobacco [...] FIT DNA 1952 FIT 1950 Sigmoidoscopy 1950 Pneumoccocal Vaccine: 65+ (1 of 2 - PCV) 1958 Hepatitis C Screening 1970 Lipid Screening 1970 Tetanus/Diphtheria/Pertussis Vaccines (1 - Tdap) 12/08/1971 Breast Cancer Share Decision Needed 1992 Breast Cancer screening 1992 Zoster vaccine (1 of 2) 2002 Advance Directive 12/08/2007 RSV Vaccine (1 - Risk 60-74 years 1-dose series) 2012 Bone Density Scan 2017 Covid-19 Vaccine (1 - 2023-2 5 season) 2024 Influenza (Flu) vaccine (1 o [...] Routine 12/30/2023 2:20 PM EDT Cervical radiculopathy COMPREHENSIVE METABOLIC PANEL Routine 03/30/2023 10:23 AM EST Primary biliary cholangitis Hepatic cirrhosis, unspecified hepatic cirrhosis type, unspecified whether ascites present COLONOSCOPY Routine 02/19/2023 1:47 PM EDT from Last 3 Months or Most Recently Relevant to Health Maintenance Results * Scan Doc: Lab (01/11/2024 12:00 AM EDT) Narrative 01/11/2024 12:00 AM EDT Ordered by an unspecified provider. Scanning Provider MEDIA MGR SCAN EXT O RDR/RSLT * MRI Cervical Spine wo Contrast (Generic) (12/30/2023 2:20 PM EDT) WORKSTATION ID [id number] RAD Anatomical Region Laterality Modality C-spine Magnetic [...] who have questions please contact the health companion caregiver that requested your imaging first. ? Electronically signed by: Vineet Ruggiero DO, [facility] ??([phone]), at 12/31/2023 4:30 PM Narrative 12/31/2023 4:30 [...] patients who have questions please contactthe health companion caregiver that requested your imaging first. Electronically signed by: Vineet Ruggiero DO, [facility]([phone]), at 12/31/2023 4:30 PM Nicolasa Prince APRN [facility] MRI ORDERABLES * (ABNORMAL) Comprehensive metabolic panel (non-fasting) (03/30/2023 10:23 AM EST) Glucose 110 65 - 199 mg/dL [facility] Comment:Diabetes: >=200 mg/d L plus symptoms Blood Urea Nitrogen 20(H) 8 - 18 mg/dL [facility] Creatinine 0.82 0.70 - 1.20 mg/dL [facility] Sodium 140 135 - 145 mmol/L [facility] Potassium 4.1 3.5 - 5.0 mmol/L [facility] Comment: Please note: ??Patients with WBC >100,000 may have falsely elevated Potassium levels. ??For accurate Potassium quantification in these patients send serum separator tube (gold top) for subsequent determinations. ??Contact the Clinical Chemistry Laboratory if there are any questions. Chloride 105 98 - 107 mmol/L [facility] Carbon Dioxide 22 22 - 31 mmol/L [facility] Anion Gap 13 5 - 15 mmol/L [facility] Calcium 9.8 8.5 - 10.5 mg/dL [facility] Protein, Total 7.2 6.1 - 8.0 g/dL [facility] Albumin 4.4 3.2 - 5.2 g/dL [facility] Aspartate Aminotransferase 31(H) 0 - 30 unit/L [facility] Alanine Aminotransferase 24 0 - 30 unit/L [facility] Alkaline Phosphatase 64 35 - 105 unit/L [facility] Bilirubin, Total 0.7 0.2 - 1.3 mg/dL [facility] Est Glomerular Filtration Rate 77 >=60 mL/min/1. 73 m?? [facility] Comment: This patient's estimated GFR [...] In Lab Irene Lara MD CHEMISTRY ORDERABLES [facility] [place] [address] * COLONOSCOPY (02/19/2023 1:47 PM EDT) COLONOSCOPY [facility] Endoscopy Procedure Date: 02/19/2023 1:47 PM ? Patient Name: Cookie Salgado ? N: [id number] ? Date of : 1950 ? Age: 72 ? Order #: [id number] ? Instrument Name: [id number] ? Procedure: ? Colonoscopy Indications: ? Follow-up for history of ? adenomatous polyps in the colon Providers: ? Elin Carlson MD, Damon Jean ? Lucy Archer MD: ?Nicolasa H. Suresh Medicines: ? Midazolam [...] ? was evaluated using the BBPS ? ([place] Bowel Preparation Scale) ? with scores of: [...] Procedure Code(s): ? --- Professional --- ? 87741, Colonoscopy, flexible; with ? removal of tumor(s), polyp(s), or ? other lesion(s) by snare technique CPT copyright 2022 [employer]. All rights reserved. The codes [...] PROVATION 02/19/2023 1:47 PM EDT Nicolasa Prince PERIOPERATIVE ASSISTANT GENERAL SURGICAL O RDERABLES PROVATION from Last 3 Months or Most Recently Relevant to Health Maintenance Care Teams Cable Engineer Relationship Specialty Start Date End Date Nicolasa Prince APRN [address] [place] [address] PCP - General Family Medicine 01/08/21
--- OUTSIDE RECORDS SUMMARY | 2024-03-31 00:08 | XMS_ITS | Encounter Summary ---
Author Organization [facility] [address] Care Team Providers Care Associate Chemist Name Role Phone Nicolasa Prince APRN Primary Care Provider +1- [phone] Reason for Visit * Reason Onset Date Comments Appointment 06/24/2023 US/Abdomen Encounter Details Date Type Department Care Team (Late st Contact Info) Description 06/24/2023 [place] [address] Gisele Jim RN Appointment (US/Abdomen) [...] on filedocumented in this encounter Care Teams Associate Chemist Relationship Specialty Start Date End Date Nicolasa Prince APRN [address] [address] PCP - General Family Medicine 01/08/21 documented as of this encounter
--- OUTSIDE RECORDS SUMMARY | 2024-03-31 00:08 | XMS_ITS | Encounter Summary ---
Author Organization [facility] [place] [address] Care Team Providers Care Metal Storage Worker Name Role Phone Nicolasa Prince APRN Primary Care Provider +1- [phone] Encounter Details Date Type Department Care Team [...] on filedocumented in this encounter Care Teams Metal Storage Worker Relationship Specialty Start Date End Date Nicolasa Prince APRN [address] [place] [address] PCP - General Family Medicine 01/08/21 documented as of this encounter
--- OUTSIDE RECORDS SUMMARY | 2024-03-31 00:08 | XMS_ITS | Encounter Summary ---
Author Organization [facility] [place] [address] Care Team Providers Care Belt Tender Name Role Phone Nicolasa Prince APRN Primary Care Provider +1- [phone] Reason for Visit * Reason Comments Medication Refill Encounter Details Date Type Department Care Team (Late st Contact Info) Description 11/19/2023 [place] [address] Irene Lara MD [facility] [place] [address] Autoimmune hepatitis Social History Tobacco Use Types [...] hepatitis documented in this encounter Care Teams Belt Tender Relationship Specialty Start Date End Date Nicolasa Prince APRN [address] [place] [address] PCP - General Family Medicine 01/08/21 documented as of this encounter
--- OUTSIDE RECORDS SUMMARY | 2024-03-31 00:08 | XMS_ITS | Encounter Summary ---
[place] [address] Care Team Providers Care Kerrick Kleaner Operator Name Role Phone Nicolasa Prince APRN Primary Care Provider +1- [phone] Encounter Details Date Type Department Care Team (Latest Contact Info) Description 09/28/2023 11:15 AM EDT Laboratory Appointment Lab [address] [place] [phone] Primary biliary cholangitis Social History Tobacco Use [...] Protein, Total 7.6 6.1 - 8.0 g/dL [facility] Albumin 4.4 3.2 - 5.2 g/dL [facility] Aspartate Aminotransferase 25 0 - 30 unit/L [facility] Alanine Aminotransferase 23 0 - 30 unit/L [facility] Alkaline Phosphatase 70 35 - 105 unit/L [facility] Bilirubin, Total 0.7 0.2 - 1.3 mg/dL [facility] Bilirubin, Direct 0.3 0.0 - 0.3 mg/dL [facility] Blood 09/28/2023 11:4 6 AM EDT 09/28/2023 11:51 AM EDT Narrative Resulting Agency Comment Spec In Lab Irene Lara MD CHEMISTRY ORDERABLES Performing Organization Address City/State/[facility] Co de Phone Number [facility] [place] [address] documented in this encounter Visit Diagnoses Diagnosis Primary biliary cholangitis documented in this encounter Care Teams Kerrick Kleaner Operator Relationship Specialty Start Date End Date Nicolasa Prince APRN [address] [place] [address] PCP - General Family Medicine 01/08/21 documented as of this encounter
--- OUTSIDE RECORDS SUMMARY | 2024-03-31 00:08 | XMS_ITS | Encounter Summary ---
[place] [address] Care Team Providers Care Attending Pathologist Name Role Phone Nicolasa Prince APRN Primary Care Provider +1- [phone] Reason for Referral * Diagnostic Test (Routine) - Closed Specialty Diagnoses / Procedures Referred By Patricioac t Referred To Contact Radiology Diagnoses Cervical radiculopathy Procedures MRI Cervical Spine wo Contrast (Generic) Nicolasa Prince APRN [address] [place] [address] [place] [address] Referral ID Status Reason Start Date Expiration Date V isits Requested Visits Authorized [id number] Closed Specialty Service Requested 12/09/2023 06/10/2025 1 1 Reason for Visit * Diagnostic Test (Routine) - Closed Specialty Diagnoses / Procedures Referred By Contac t Referred To Contact Radiology Diagnoses Cervical radiculopathy Procedures MRI Cervical Spine wo Contrast (Generic) Nicolasa Prince APRN [address] [place] [address] [place] [address] Referral ID Status Reason Start Date Expiration Date V isits Requested Visits Authorized [id number] Closed Specialty Service Requested 12/09/2023 06/10/2025 1 1 Encounter Details Date Type Department Care Team (Latest Contact Info) Description 12/30/2023 1:43 PM EDT - 12/30/2023 11:59 PM EDT Hospital Encounter MRI at [facility] [place] [address] Nicolasa Prince ChanYULIA [address] [place] [address] Cervical radiculopathy Discharge Disposition: Home Social History [...] fenofibrate (Tricor) 145 mg tabletIndications:Autoi mmune hepatitis Take 1 tablet by mouth daily. 90 tablet 12/08/2023 03/23/2024 Ursodiol (Bridgette Forte) 500 mg tabletIndications:Autoi mmune hepatitis Take 1 tablet by mouth 2 times daily. 180 tablet 12/08/2023 03/23/2024 documented as of this encounter Plan of Treatment Not on file documented as of this encounter Procedures Procedure Name Priority Date/Time Associated Diagnosis Comments MRI CERVICAL SPINE WO CONTRAST Routine 12/30/2023 2:20 PM EDT Cervical radiculopathy documented in this encounter Results * MRI Cervical Spine wo Contrast (Generic) (12/30/2023 2:20 PM EDT) WORKSTATION ID [id number] RAD Anatomical Region Laterality Modality C-spine Magnetic [...] ? Electronically signed by: Vineet Ruggiero DO, [facility] ??([phone]), at 12/31/2023 4:30 PM Narrative 12/31/2023 4:30 [...] manager that requested your imaging first. Nicolasa Prince APRN IMG MRI ORDERABLES documented in this encounter Visit Diagnoses Diagnosis Cervical radiculopathy Brachial neuritis or radiculitis nos documented in this encounter Care Teams Attending Pathologist Relationship Specialty Start Date End Date Nicolasa Prince APRN [address] [place] [address] PCP - General Family Medicine 01/08/21 documented as of this encounter
--- OUTSIDE RECORDS SUMMARY | 2024-03-31 00:08 | XMS_ITS | Encounter Summary ---
Author Organization [facility] Address [address] [place] [address] Care Team Providers Care Face Painter Name Role Phone Unavailable Primary Care Provider Unavailabl e Encounter Details Date Type Department Care Team (Late st Contact Info) Description 03/01/2023 Lab Requisition [facility] Pathology & Laboratory Medicine - [address] [address] Outr Resulting Lab, Provider Social History Tobacco [...] Marker 2.7 <8.1 ng/mL 03/03/2023 8:36 EDT [facility] Comment: AFP Tumor Marker cannot be interpreted in females. ?? NOTE: Serum AFP concentrations should not be interpreted as absolute evidence for the presence or absence of malignant disease. Assayed on Siemens ADVIA Centaur XPT using chemiluminescent technology. ??Values obtained by using different assay methods cannot be used interchangeably. Blood VENOUS BLOOD / Unknown 03/01/2023 10:45 EDT 03/01/2023 16:49 EDT us Provider Outr Resulting Lab CHEMISTRY & BLOOD GA S ORDERABLES Final Result [facility] [address] [place] [address] documented in this encounter Visit Diagnoses Not on filedocumented in this encounter
--- OUTSIDE RECORDS SUMMARY | 2024-03-31 00:08 | XMS_ITS | Encounter Summary ---
Author Organization [facility] [place] [address] Care Team Providers Care Senior Marketing Coordinator Name Role Phone Nicolasa Prince APRN Primary Care Provider +1- [phone] Encounter Details Date Type Department Care Team (Late st Contact Info) Description 03/10/2023 Telephone [place] [phone] Irene Lara MD [facility] [place] [address] Social History Tobacco Use Types Packs/Day Years [...] Lara MD Section of Gastroenterology & Hepatology [address] [place] [address] documented in this encounter Plan of Treatment Not on file documented as of this encounter Visit Diagnoses Not on filedocumented in this encounter Care Teams Senior Marketing Coordinator Relationship Specialty Start Date End Date Nicolasa Prince APRN [address] [place] [address] PCP - General Family Medicine 01/08/21 documented as of this encounter
--- OUTSIDE RECORDS SUMMARY | 2024-03-31 00:08 | XMS_ITS | Encounter Summary ---
Author Organization [facility] [place] [address] Care Team Providers Care Washroom Cleaner Name Role Phone Nicolasa Prince APRN Primary Care Provider +1- [phone] Reason for Visit * Auth/Cert (Routine) Specialty Diagnoses / Procedures Referred By Contkolby t Referred To Contact Diagnoses Encounter for screening for malignant neoplasm of colon 6 month Procedures PRO COLONOSCOPY, DIAGNOSTIC PRO COLONOSCOPY, BIOPSY PRO COLONOSCOPY, REMV LESN, SNARE PRO ANES, LWR INTESTINE, SCREENING COLONOSCOPY COLONOSCOPY,SCREENING (WRVU 3.26) Elin Carlson MD [facility] [place] [address] [facility] Referral ID Status Reason Start Date Expiration Date Visits Re quested Visits Authorized [id number] 1 1 Encounter Details Date Type Department Care Team (Late st Contact Info) Description 02/19/2023 1:45 PM EDT - 02/19/2023 2:30 PM EDT [place] [address] Elin Carlson MD [facility] [place] [address] COLONOSCOPY, POLYPECTOMY, REMOVAL LESION BY SNARE (WRVU [...] occurs, please contact your Doctor. Please call [phone] before 8pm Mon-Fri with problems, questions or concerns. If you call after 8pm or on weekends, call the Hospital at [phone] and ask to speak to the Medical Superintendent professional system administrator and the remelt pan tank operator will contact that person for you. When should you call for help? Call [phone] anytime you think you may need emergency [...] After Visit Summary and more online at [email or web address] If you would like to provide feedback [...] cost to you. Content Version: 12.2 ?? [id number] [employer]. Care instructions adapted under license by [facility]. If you have questions about a medical condition or this instruction, always ask your healthcare professional. [employer] disclaims any warranty or liability for your [...] List Diagnosis Code Atherosclerotic heart disease of [place] coronary artery without angina pectoris I25.10 EXAM: [...] 02/19/2023 2:32 PM EDT Colonoscopy, Gauri Zavala ([id number]) 02/19/2023 1:54 PM EDT 6 month COLONOSCOPY Routine 02/19/2023 1:47 PM EDT documented in this encounter Results * Surgical Pathology Report (02/19/2023 2:32 PM EDT) Final Diagnosis [id number] ? Location: 4T; EA12; A The signing pathologist has (i) examined the relevant preparation(s) for the specimen(s) and (ii) rendered or confirmed the diagnosis(es). . ?Surgical Pathology DIAGNOSIS A - Ascending colon polyps 2mm, 1mm, resection: - ??Fragments of tubular adenoma. B - Rectal polyp 1mm, resection: - ??Hyperplastic polyp. CR-PX Electronically signed by: ?Per LUTHER, Arpit Verified: ??03/01/2023 16:31 ??Pathologist Performed at: ??-[facility] Dept. of Pathology, [place] [address] Cone Trucker: Stefan Min MD, FCAP, ??CLIA Certificate: [id number] SPECIMEN(S) SUBMITTED A - ascending colon polyps [...] labeled B1. ??sdy 03/01/2023 4:31 PM EDT [facility] GI Biopsy 02/19/2023 2:32 PM EDT 02/19/2023 2:32 PM EDT GI Biopsy 02/19/2023 2:32 PM EDT 02/19/2023 2:32 PM EDT Elin Carlson MD PATHOLOGY/CYTOLOGY O RDERABLES Performing Organization Address [facility] [place] [address] [facility] [place] [address] * Specimen to Pathology (02/19/2023 2:32 PM EDT) AP Specimen 02/19/2023 2:32 PM EDT 02/19/2023 2:32 PM EDT Narrative [facility] - 02/19/2023 2:32 PM EDT Specimen requisition ordered. ??Separate Pathology report to follow Elin Carlson MD PATHOLOGY/CYTOLOGY O MEENU Performing Organization Address [facility] [place] [address] * Specimen to Pathology (02/19/2023 2:32 PM EDT) AP Specimen 02/19/2023 2:32 PM EDT 02/19/2023 2:32 PM EDT Narrative [facility] - 02/19/2023 2:32 PM EDT Specimen requisition ordered. ??Separate Pathology report to follow Elin Carlson MD PATHOLOGY/CYTOLOGY O MEENU Performing Organization Address [facility] [place] [address] * COLONOSCOPY (02/19/2023 1:47 PM EDT) COLONOSCOPY [facility] Endoscopy Procedure Date: 02/19/2023 1:47 PM ? Patient Name: Cookie Salgado ? Date of : 1950 ? Age: 72 ? Order #: [id number] ? Instrument Name: [id number] ? Procedure: ? Colonoscopy Indications: ? Follow-up [...] ? was evaluated using the BBPS ? ([place] Bowel Preparation Scale) ? with scores of: [...] Procedure Code(s): ? --- Professional --- ? 30921, Colonoscopy, flexible; with ? removal of tumor(s), polyp(s), or ? other lesion(s) by snare technique CPT copyright 2021 [employer]. All rights reserved. The codes documented in this report are preliminary and upon die welder review may be revised to meet current compliance requirements. Attending Participation: ? I personally performed the entire procedure. ? Elin Carlson MD _ Elin Carlson MD 02/19/2023 2:36:53 PM This report has been signed electronically. Number of Addenda: 0 Note Initiated On: 02/19/2023 1:47 PM PROVATION 02/19/2023 1:47 PM EDT Nicolasa Prince WOOD SCRAP HANDLER GENERAL SURGICAL O RDERABLES PROVATION documented in [...] RN) documented in this encounter Care Teams Washroom Cleaner Relationship Specialty Start Date End Date Nicolasa Prince APRN [address] [place] [address] PCP - General Family Medicine 01/08/21 documented as of this encounter
--- OUTSIDE RECORDS SUMMARY | 2024-03-31 00:08 | XMS_ITS | Encounter Summary ---
Author Organization [facility] [place] [address] Care Team Providers Care Painting Technician Name Role Phone Nicolasa Prince APRN Primary Care Provider +1- [phone] Reason for Visit * Reason Onset Date Comments Medication Refill 12/08/2023 Encounter Details Date Type Department Care Team (Late st Contact Info) Description 12/08/2023 [place] [address] Elin Carlson MD [facility] [place] [address] Autoimmune hepatitis Social History Tobacco Use Types [...] hepatitis documented in this encounter Care Teams Painting Technician Relationship Specialty Start Date End Date Nicolasa Prince APRN [address] [place] [address] PCP - General Family Medicine 01/08/21 documented as of this encounter
--- OUTSIDE RECORDS SUMMARY | 2024-03-31 00:08 | XMS_ITS | Encounter Summary ---
Author Organization [facility] [place] [address] Care Team Providers Care Animal Damage Control Agent Name Role Phone Nicolasa Prince APRN Primary Care Provider +1- [phone] Encounter Details Date Type Department Care Team (Late st Contact Info) Description 01/27/2023 External Results [place] [address] Irene Lara MD [facility] [place] [address] Social History Tobacco Use Types Packs/Day Years [...] on filedocumented in this encounter Care Teams Animal Damage Control Agent Relationship Specialty Start Date End Date Nicolasa Prince APRN [address] [place] [address] PCP - General Family Medicine 01/08/21 documented as of this encounter
--- OUTSIDE RECORDS SUMMARY | 2024-03-31 00:08 | XMS_ITS | Encounter Summary ---
Author Organization [facility] [place] [address] Care Team Providers Care Technology Assistant Name Role Phone Nicolasa rPince APRN Primary Care Provider +1- [phone] Encounter Details Date Type Department Care Team (Late st Contact Info) Description 03/09/2023 External Results Gastroenterology at [facility] [place] [address] Isabela March RN Social History Tobacco Use [...] on filedocumented in this encounter Care Teams Technology Assistant Relationship Specialty Start Date End Date Nicolasa Prince APRN [address] [place] [address] PCP - General Family Medicine 01/08/21 documented as of this encounter
--- OUTSIDE RECORDS SUMMARY | 2024-03-31 00:08 | XMS_ITS | Encounter Summary ---
Author Organization [facility] [place] [address] Care Team Providers Care Research Test Engine Operator Name Role Phone Nicolasa Prince APRN Primary Care Provider +1- [phone] Encounter Details Date Type Department Care Team (Late st Contact Info) Description 12/13/2023 [place] [address] Jasmin Porras Social History Tobacco Use Types [...] on filedocumented in this encounter Care Teams Research Test Engine Operator Relationship Specialty Start Date End Date Nicolasa Prince APRN [address] [place] [address] PCP - General Family Medicine 01/08/21 documented as of this encounter
--- OUTSIDE RECORDS SUMMARY | 2024-03-31 00:08 | XMS_ITS | Encounter Summary ---
Author Organization [facility] [place] [place] [address] Care Team Providers Care Technical Supervisor Name Role Phone Nicolasa Prince APRN Primary Care Provider +1- [phone] Encounter Details Date Type Department Care Team (Late st Contact Info) Description 09/28/2023 1:00 PM EDT Office [place] [phone] Irene Lara MD [facility] [place] [address] Primary biliary cholangitis; Hepatic cirrhosis, unspecified hepatic [...] Her original diagnosis was made in [place] and she was managed by a motor inspection mechanic at [facility]. Her records were extensively reviewed in [...] since approximately 2016. She moved to [place] in 2019.. Living with her two brothers. [...] Vitals: 09/28/23 1310 BP: 118/57 BP Location ([facility]): Right arm Patient Position: Sitting BP [...] screening in six months- will do in [facility], , GIF here in one year Time spent with patient: 25 min Time spent reviewing records, documenting- all today : 8 min Irene Lara MD Section of Gastroenterology & Hepatology [address] [place] [address] Cc: Nicolasa Prince APRN SURGICAL PATHOLOGY REPORT Patient: PREMA SALGADO MR #: [id number] Submitted by: Elie Moreno MD FINAL DIAGNOSIS [...] the ductules cannot be definitively distinguished from burns paiute bile ducts. There is patchy periportal hepatocellular [...] a prior liver biopsy reviewed at [facility] (see accession number [id number]), although the slides are not available for [...] present documented in this encounter Care Teams Technical Supervisor Relationship Specialty Start Date End Date Nicolasa Prince APRN [address] [place] [address] PCP - General Family Medicine 01/08/21 documented as of this encounter
--- OUTSIDE RECORDS SUMMARY | 2024-03-31 00:08 | XMS_ITS | Encounter Summary ---
[facility] [place] [address] Care Team Providers Care Federal Java Developer Name Role Phone Nicolasa Prince APRN Primary Care Provider +1- [phone] Encounter Details Date Type Department Care Team [...] on filedocumented in this encounter Care Teams Federal Java Developer Relationship Specialty Start Date End Date Nicolasa Prince APRN [address] [place] [address] PCP - General Family Medicine 01/08/21 documented as of this encounter
--- OUTSIDE RECORDS SUMMARY | 2024-03-31 00:08 | XMS_ITS | Encounter Summary ---
Author Organization [facility] [place] [address] Care Team Providers Care Sintering Plant Supervisor Name Role Phone Nicolasa Prince APRN Primary Care Provider +1- [phone] Reason for Visit * Reason Comments Medication Refill Encounter Details Date Type Department Care Team (Late st Contact Info) Description 03/14/2023 Refill [place] [address] Irene Lara MD [facility] [place] [address] Autoimmune hepatitis Social History Tobacco Use Types [...] hepatitis documented in this encounter Care Teams Sintering Plant Supervisor Relationship Specialty Start Date End Date Nicolasa Prince APRN [address] [place] [address] PCP - General Family Medicine 01/08/21 documented as of this encounter
--- OUTSIDE RECORDS SUMMARY | 2024-03-31 00:08 | XMS_ITS | Encounter Summary ---
Author Organization [facility] [place] [address] Care Team Providers Care Foreclosure Specialist Name Role Phone Nicolasa Prince APRN Primary Care Provider +1- [phone] Reason for Visit * Auth/Cert (Routine) Specialty Diagnoses / Procedures Referred By Minh t Referred To Contact Diagnoses Encounter for screening for malignant neoplasm of colon 6 month Procedures PRO COLONOSCOPY, DIAGNOSTIC PRO COLONOSCOPY, BIOPSY PRO COLONOSCOPY, REMV LESN, SNARE PRO ANES, LWR INTESTINE, SCREENING COLONOSCOPY COLONOSCOPY,SCREENING (WRVU 3.26) Mateo Carlson MD [facility] [place] [address] [facility] Referral ID Status Reason Start Date Expiration Date Visits Re quested Visits Authorized [id number] 1 1 Encounter Details Date Type Department Care Team (Latest Contact Info) Description 02/19/2023 12:41 PM EDT - 02/19/2023 3:29 PM EDT Hospital Encounter [place] [address] Mateo Carlson MD [facility] [place] [address] Discharge Disposition: Home Social History Tobacco Use [...] occurs, please contact your Doctor. Please call [phone] before 8pm Mon-Fri with problems, questions or concerns. If you call after 8pm or on weekends, call the Hospital at [phone] and ask to speak to the Human Resources Operations Coordinator marketing communications manager and the paver operator will contact that person for you. When should you call for help? Call [phone] anytime you think you may need emergency [...] cost to you. Content Version: 12.2 ?? [id number] [employer]. Care instructions adapted under license by [facility]. If you have questions about a medical condition or this instruction, always ask your healthcare professional. [employer] disclaims any warranty or liability for your [...] List Diagnosis Code Atherosclerotic heart disease of [place] coronary artery without angina pectoris I25.10 EXAM: [...] 02/19/2023 2:32 PM EDT Colonoscopy, Gauri Zavala ([id number]) 02/19/2023 1:54 PM EDT 6 month COLONOSCOPY Routine 02/19/2023 1:47 PM EDT documented in this encounter Results * Surgical Pathology Report (02/19/2023 2:32 PM EDT) Final Diagnosis [id number] ? Location: 4T; EA12; A The signing pathologist has (i) examined the relevant preparation(s) for the specimen(s) and (ii) rendered or confirmed the diagnosis(es). . ?Surgical Pathology DIAGNOSIS A - Ascending colon polyps 2mm, 1mm, resection: - ??Fragments of tubular adenoma. B - Rectal polyp 1mm, resection: - ??Hyperplastic polyp. CR-PX Electronically signed by: ?Per LUTHER, Arpit Verified: ??03/01/2023 16:31 ??Pathologist Performed at: ??[facility], [place] [address] Life Sciences Director: Stefan Min MD, FCAP, ??CLIA Certificate: [id number] SPECIMEN(S) SUBMITTED A - ascending colon polyps [...] labeled B1. ??sdy 03/01/2023 4:31 PM EDT [facility] GI Biopsy 02/19/2023 2:32 PM EDT 02/19/2023 2:32 PM EDT GI Biopsy 02/19/2023 2:32 PM EDT 02/19/2023 2:32 PM EDT Mateo Carlson MD PATHOLOGY/[place] [address] [place] [address] * Specimen to Pathology (02/19/2023 2:32 PM EDT) AP Specimen 02/19/2023 2:32 PM EDT 02/19/2023 2:32 PM EDT Narrative [facility] - 02/19/2023 2:32 PM EDT Specimen requisition ordered. ??Separate Pathology report to follow Mateo Carlson MD PATHOLOGY/CYTOLOGY O MEENU Performing Organization Address [facility] [place] [place] [address] * Specimen to Pathology (02/19/2023 2:32 PM EDT) AP Specimen 02/19/2023 2:32 PM EDT 02/19/2023 2:32 PM EDT Narrative [facility] - 02/19/2023 2:32 PM EDT Specimen requisition ordered. ??Separate Pathology report to follow Mateo Carlson MD PATHOLOGY/CYTOLOGY O MEENU Performing Organization Address [facility] [place] [place] [address] * COLONOSCOPY (02/19/2023 1:47 PM EDT) COLONOSCOPY [facility] Endoscopy Procedure Date: 02/19/2023 1:47 PM ? Patient Name: Cookie Salgado ? Date of : 1950 ? Age: 72 ? Order #: [id number] ? Instrument Name: [id number] ? Procedure: ? Colonoscopy Indications: ? Follow-up [...] ? was evaluated using the BBPS ? ([place] Bowel Preparation Scale) ? with scores of: [...] Procedure Code(s): ? --- Professional --- ? 88157, Colonoscopy, flexible; with ? removal of tumor(s), polyp(s), or ? other lesion(s) by snare technique CPT copyright 2021 [employer]. All rights reserved. The codes documented in this report are preliminary and upon invoice coder review may be revised to meet current compliance requirements. Attending Participation: ? I personally performed the entire procedure. ? Mateo Carlson MD _ Mateo Carlson MD 02/19/2023 2:36:53 PM This report has been signed electronically. Number of Addenda: 0 Note Initiated On: 02/19/2023 1:47 PM PROVATION 02/19/2023 1:47 PM EDT Nicolasa Prince RN TEAM LEADER GENERAL SURGICAL O RDERABLES PROVATION documented [...] RN) documented in this encounter Care Teams Foreclosure Specialist Relationship Specialty Start Date End Date Nicolasa Prince, RN TEAM LEADER [address] [place] [address] PCP - General Family Medicine 01/08/21 documented as of this encounter
--- OUTSIDE RECORDS SUMMARY | 2024-03-31 00:08 | XMS_ITS | Encounter Summary ---
Author Organization [facility] Address [address] [place] [address] Care Team Providers Care Automatic Nailing Machine Feeder Name Role Phone Unavailable Primary Care Provider Unavailabl e Encounter Details Date Type Department Care Team (Late st Contact Info) Description 11/17/2023 Lab Requisition [facility] Pathology & [place] [address] Outr Resulting Lab, Provider Social History Tobacco [...] Lyme Ab Negative Negative 11/18/2023 11:08 EDT [facility] Blood VENOUS BLOOD / Unknown 11/16/2023 9:50 EDT 11/17/2023 18:10 EDT us Provider Outr Resulting Lab IMMUNOLOGY AND SEROL OGY ORDERABLES Final Result [facility] [address] [place], [place] [address] documented in this encounter Visit Diagnoses Not on filedocumented in this encounter
--- OUTSIDE RECORDS SUMMARY | 2024-03-31 00:08 | XMS_ITS | Encounter Summary ---
Author Organization [facility] [place] [address] Care Team Providers Care Cost Control Supervisor Name Role Phone Nicolasa Prince APRN Primary Care Provider +1- [phone] Reason for Visit * Reason Comments Medication Refill Encounter Details Date Type Department Care Team (Late st Contact Info) Description 08/23/2023 Ref[place] [address] Irene Lara MD [facility] [place] [address] Autoimmune hepatitis Social History Tobacco Use Types [...] hepatitis documented in this encounter Care Teams Cost Control Supervisor Relationship Specialty Start Date End Date Nicolasa Prince APRN [address] [place] [address] PCP - General Family Medicine 01/08/21 documented as of this encounter
--- OUTSIDE RECORDS SUMMARY | 2024-03-31 00:08 | XMS_ITS | Encounter Summary ---
Author Organization [facility] Address [address] [place] [address] Care Team Providers Care Ultimate Hoops Trainer Name Role Phone Unavailable Primary Care Provider Unavailabl e Encounter Details Date Type Department Care Team (Late st Contact Info) Description 01/11/2024 Lab Requisition [facility] Pathology & Laboratory Medicine - [address] [address] Outr Resulting Lab, Provider Social History Tobacco [...] <2.5 <8.1 ng/mL 01/12/2024 9:52 EDT [facility] Comment: AFP Tumor Marker [...] & BLOOD GA S ORDERABLES Final Result [facility] [address] [place] [address] documented in this encounter Visit Diagnoses Not on filedocumented in this encounter
--- OUTSIDE RECORDS SUMMARY | 2024-03-31 00:08 | XMS_ITS | Encounter Summary ---
Author [facility] [place] [address] Care Team Providers Care Law Examiner Name Role Phone Nicolasa Prince APRN Primary Care Provider +1- [phone] Encounter Details Date Type Department Care Team (Latest Contact Info) Description 03/30/2023 10:15 AM EST Laboratory Appointment Lab [address] [place] [phone] Primary biliary cholangitis; Hepatic cirrhosis, unspecified hepatic [...] 10:23 AM EST) Neutrophil % 64.6 % [facility] Neutrophil Absolute 2.35 1.70 - 6.10 x10(3)/mc L [facility] Lymph % 22.9 % [facility] Lymphocytes Abs 0.8(L) 0.9 - 3.2 x10(3)/mc L [facility] Monocyte % 10.5 % [facility] Monocyte Abs 0.4 0.3 - 0.9 x10(3)/mc L [facility] Eos % 1.1 % [facility] Eosinophils Abs 0.0 0.0 - 0.4 x10(3)/mc L [facility] Basophil % 0.6 % [facility] Baso Absolute 0.0 0.0 - 0.1 x10(3)/mc L [facility] Immature Gran % 0.30 % [facility] Comment: Immature granulocytes(IG's)percentage and absolute count will include metamyelocytes, myelocytes, and promyelocytes. Blood smears from CBCs yielding IG's will be scanned manually for concordance. If this scan disagrees with the automated IG or if promyelocytes are noted, a manual differential will be performed. Immature Gran Absolute 0.01 0.00 - 0.04 x10(3)/mc L [facility] Blood 03/30/2023 10:2 3 AM EST 03/30/2023 10:31 AM EST Narrative Resulting Agency Comment Spec In Lab Irene Lara MD HEMATOLOGY ORDERABLE S [facility] [place] [address] * (ABNORMAL) Hemogram (03/30/2023 10:23 AM EST) White Blood Cell 3.6(L) 4.0 - 9.5 x10(3)/mc L [facility] Red Blood Cell 5.01 4.00 - 5.21 x10(6)/mc L [facility] Hemoglobin 15.8(H) 11.7 - 15.5 g/dL [facility] Hematocrit 46.6(H) 35.7 - 45.8 % [facility] Mean Cell Volume 93.0 82.6 - 94.4 fL [facility] Mean Cell Hemoglobin 31.5 27.1 - 32.0 pg [facility] Mean Cell Hemoglobin Concentration 33.9 31.7 - 35.0 g/dL [facility] Platelet 131(L) 145 - 357 x10(3)/mc L [facility] RDW Standard Deviation 44.9 37.0 - 46.0 fL [facility] RDW coefficient of variation 13.2 11.5 - 14.1 % [facility] Mean Platelet Volume 10.4 7.6 - 12.9 fL [facility] NRBC% auto 0.0 % [facility] NRBC Absolute 0.000 0.000 - 0.000 x10(3)/ L [facility] Blood 03/30/2023 10:2 3 AM EST 03/30/2023 10:31 AM EST Narrative Resulting Agency Comment Spec In Lab Irene Lara MD HEMATOLOGY ORDERABLE S [facility] [place] [address] * (ABNORMAL) Comprehensive metabolic panel (non-fasting) (03/30/2023 10:23 AM EST) Glucose 110 65 - 199 mg/dL [facility] Comment:Diabetes: >=200 mg/d L plus symptoms Blood Urea Nitrogen 20(H) 8 - 18 mg/dL [facility] Creatinine 0.82 0.70 - 1.20 mg/dL [facility] Sodium 140 135 - 145 mmol/L [facility] Potassium 4.1 3.5 - 5.0 mmol/L [facility] Comment: Please note: ??Patients with WBC >100,000 may have falsely elevated Potassium levels. ??For accurate Potassium quantification in these patients send serum separator tube (gold top) for subsequent determinations. ??Contact the Clinical Chemistry Laboratory if there are any questions. Chloride 105 98 - 107 mmol/L [facility] Carbon Dioxide 22 22 - 31 mmol/L [facility] Anion Gap 13 5 - 15 mmol/L [facility] Calcium 9.8 8.5 - 10.5 mg/dL [facility] Protein, Total 7.2 6.1 - 8.0 g/dL [facility] Albumin 4.4 3.2 - 5.2 g/dL [facility] Aspartate Aminotransferase 31(H) 0 - 30 unit/L [facility] Alanine Aminotransferase 24 0 - 30 unit/L [facility] Alkaline Phosphatase 64 35 - 105 unit/L [facility] Bilirubin, Total 0.7 0.2 - 1.3 mg/dL [facility] Est Glomerular Filtration Rate 77 >=60 mL/min/1. 73 m?? [facility] Comment: This patient's estimated GFR was [...] In Lab Irene Lara MD CHEMISTRY ORDERABLES [facility] [place] [address] * Prothrombin Time (03/30/2023 10:23 AM EST) Prothrombin Time 12.0 9.4 - 12.5 sec [facility] International Normalization Ratio 1.1 [facility] Comment: An INR <2.0 indicates adequate [...] MD HEMATOLOGY ORDERABLE S Performing Organization Address City/[facility]/ZIP Co de Phone Number [facility] [place] [address] * AFP tumor marker (03/30/2023 10:23 AM EST) Pathologist [facility] Alpha Fetoprotein 2.8 <=8.3 ng/mL [facility] Comment: This result was generated using a Mendoza Jonathan immunoassay. ??Results obtained from other methods or manufacturers cannot be used interchangeably with this method. Blood 03/30/2023 10:2 3 AM EST 03/30/2023 10:30 AM EST Narrative Resulting Agency Comment Spec In Lab Irene Lara MD CHEMISTRY ORDERABLES Performing Organization Address City/[facility] Co de Phone Number [facility] [place] [address] documented in this encounter Visit Diagnoses Diagnosis Primary biliary cholangitis Hepatic cirrhosis, unspecified hepatic cirrhosis type, unspecified whether ascites present documented in this encounter Care Teams Law Examiner Relationship Specialty Start Date End Date Nicolasa Prince APRN [address] [place] [address] PCP - General Family Medicine 01/08/21 documented as of this encounter
--- OUTSIDE RECORDS SUMMARY | 2024-03-31 00:08 | XMS_ITS | Encounter Summary ---
Author Organization [facility] Address [facility] [place] [address] Care Team Providers Care Assistant Track And Field Coach Name Role Phone Nicolasa Prince YULIA Primary Care Provider +1- [phone] Encounter Details Date Type Department Care Team (Latest Contact Info) Description 09/28/2023 10:06 AM EDT - 09/28/2023 11:59 PM EDT Hospital [place] [phone] Carolynn Lamar MD [facility] [place] [address] Biliary cirrhosis Discharge Disposition: Home Social History [...] Protocol (09/28/2023 10:54 AM EDT) WORKSTATION ID [id number] RAD Anatomical Region Laterality Modality Abdomen Ultrasound [...] questions, please contact the health direct care counselor that requested your imaging first. ?Fiordaliza Fabian E Health Insurance Sales Agent Electronically Signed Final Report ?? 09/28/2023 11:41 am Narrative 09/28/2023 11:42 AM EDT Abdominal ? (Signed Final 09/28/2023 11:41 am) PATIENT INFO: ID #: ? [id number] ?: ??[birth year] (72 yrs)(F) Name: ? PREMA LEATHA ?Visit Date: 09/28/2023 10:34 am PERFORMED BY: Attending: ?Caren LUTHER, Fiordaliza Prado Resident: ? Madhavi Thomas MD Performed By: ? Joanna Bronson RDMS Referred By: ?CAROLYNN LAMAR Location: ? [place] SERVICE(S) PROVIDED: [facility] - Hepatology Protocol - Abdominal ?[address]7573 Limited Survey Single Organ or Quadrant - [id number] INDICATIONS: cirrhosis, screen for hcc COMPARISON: US [...] 09/28/2023 11:41 am) PATIENT INFO: ID #: [id number] : [birth year] (72 yrs)(F) Name: PREMA SALGADO Visit Date: 09/28/2023 10:34 am PERFORMED BY: Attending: Fiordaliza Fabian MD Resident: Madhavi Thomas MD Performed By: Joanna Bronson RDMS Referred By: CAROLYNN LAMAR Location: [place] SERVICE(S) PROVIDED: [facility] - Hepatology Protocol - Abdominal 52273 Limited Survey Single Organ or Quadrant - [id number] INDICATIONS: cirrhosis, screen for hcc COMPARISON: US [...] questions, please contact the health direct care counselor that requested your imaging first. GULSHAN Chiang Health Insurance Sales Agent Electronically Signed Final Report 09/28/2023 11:41 am Carolynn Lamar MD IMG GEN ORDERABLE S documented in this encounter Visit Diagnoses Diagnosis Biliary cirrhosis documented in this encounter Care Teams Assistant Track And Field Coach Relationship Specialty Start Date End Date Nicolasa Prince APRN [address] [place] [address] PCP - General Family Medicine 01/08/21 documented as of this encounter
--- OUTSIDE RECORDS SUMMARY | 2024-03-31 00:08 | XMS_ITS | Clinical Summary ---
Author Organization [facility] Address [address] [place] [address] Care Team Providers Care Automation Specialist Name Role Phone Unavailable Primary Care Provider Unavailabl e Encounters Date Type Department Care Team Description 01/11/2024 Lab Requisition [facility] Pathology & Laboratory Medicine - [address] [address] Outr Resulting Lab, Provider from Last 3 [...] Last Done Comments Hepatitis C Screen 1950 Fall Risk Screening 2017 COVID-19 Vaccine ( season) 2024 RSV Immunization ( o r 60+ Years) (1 - 1-dose 75+ series) 12/08/2027 Procedures Procedure Name Priority Date/Time Associated Diagnosis Comments AFP TUMOR MARKER Routine 01/11/2024 11:0 0 EDT from Last 3 Months Results * AFP TUMOR MARKER (01/11/2024 11:00 EDT) AFP Tumor Marker <2.5 <8.1 ng/mL 01/12/2024 9:52 EDT [facility] Comment: AFP Tumor [...] BLOOD GA S ORDERABLES Final Result [facility] [address] [place] [address] from Last 3 Months
--- OUTSIDE RECORDS SUMMARY | 2024-03-31 00:08 | XMS_ITS | Encounter Summary ---
Author Organization Formerly [facility] [place] [address] Care Team Providers Care Template Clerk Name Role Phone Nicolasa Prince APRN Primary Care Provider +1- [phone] Encounter Details Date Type Department Care Team (Late st Contact Info) Description 03/30/2023 11:30 AM EST Office [place] [address] Carolynn Lamar MD [facility] [place] [address] Biliary cirrhosis Social History Tobacco Use Types [...] PBC/AIH. Her original diagnosis was made in [place] and she was managed by a controlled area checker at [facility]. Her records were extensively reviewed [...] Vitals: 03/30/23 1122 BP: 129/62 BP Location ([facility]): Right arm Patient Position: Sitting BP [...] Lamar MD Section of Gastroenterology & Hepatology [address] [place], [place] [id number] Cc: Nicolasa Prince APRN SURGICAL PATHOLOGY REPORT Patient: PREMA SALGADO MR #: [id number] Submitted by: Elie Moreno MD FINAL DIAGNOSIS [...] the ductules cannot be definitively distinguished from [place] bile ducts. There is patchy periportal hepatocellular [...] had a prior liver biopsy reviewed at [facility] (see accession number [id number]), although the slides are not available for direct comparison at this time. However, based on the microscopic description, it appears that fibrosis may have progressed. documented in this encounter Plan of Treatment Not on file documented as of this encounter Results * US Abdomen Limited Hepatology Protocol (09/28/2023 10:54 AM EDT) WORKSTATION ID [id number] DH RAD Anatomical Region Laterality Modality Abdomen [...] AM Electronically signed by: Fiordaliza Fabian MD, [facility] ([phone]), at 09/28/2023 11:34 AM Thank you for letting us participate in the care of this patient. If you are a health care provider and have any questions regarding this report, please contact the number above. For patients who have questions, please contact the health school childcare attendant that requested your imaging first. ?Fiordaliza Fabian, [facility] Restaurant General Manager Electronically Signed Final Report ?? 09/28/2023 11:41 am Narrative 09/28/2023 11:42 AM EDT Abdominal ? (Signed Final 09/28/2023 11:41 am) PATIENT INFO: ID #: ? [id number] ?: ??[birth year] (72 yrs)(F) Name: ? PREMA SALGADO ?Visit Date: 09/28/2023 10:34 am PERFORMED BY: Attending: ?Caren LUTHER, Fiordaliza Prado Resident: ? Madhavi Thomas MD Performed By: ? Joanna Bronson RDMS Referred By: ?CAROLYNN LAMAR Location: ? [place] SERVICE(S) PROVIDED: [facility] - Hepatology Protocol - Abdominal ?72769 Limited Survey Single Organ or Quadrant - [id number] INDICATIONS: cirrhosis, screen for hcc COMPARISON: US [...] 09/28/2023 11:41 am) PATIENT INFO: ID #: [id number] : 54 (72 yrs)(F) Name: PREMA SALGADO Visit Date: 09/28/2023 10:34 am PERFORMED BY: Attending: Fiordaliza Fabian MD Resident: Madhavi Thomas MD Performed By: Joanna Bronson RDMS Referred By: CAROLYNN LAMAR Location: [place] SERVICE(S) PROVIDED: [facility] - Hepatology Protocol - Abdominal 57778 Limited Survey Single Organ or Quadrant - [id number] INDICATIONS: cirrhosis, screen for hcc COMPARISON: US [...] AM Electronically signed by: Fiordaliza Fabian MD, [facility] ([phone]), at 09/28/2023 11:34 AM Thank you for letting us participate in the care of this patient. If you are a health care provider and have any questions regarding this report, please contact the number above. For patients who have questions, please contact the health school childcare attendant that requested your imaging first. Fiordaliza Fabian E Restaurant General Manager Electronically Signed Final Report 09/28/2023 11:41 am Carolynn Lamar MD IMG US GEN ORDERABLE S documented in this encounter Visit Diagnoses Diagnosis Biliary cirrhosis Biliary cirrhosis documented in this encounter Care Teams Template Clerk Relationship Specialty Start Date End Date Nicolasa Prince APRN [address] [address] PCP - General Family Medicine 01/08/21 documented as of this encounter
--- OUTSIDE RECORDS SUMMARY | 2024-03-31 00:08 | XMS_ITS | Encounter Summary ---
Author Organization [facility] [place] [address] Care Team Providers Care Senior Vice President Name Role Phone Nicolasa Prince APRN Primary Care Provider +1- [phone] Reason for Visit * Reason Onset Date Comments Medication Refill 03/23/2024 Encounter Details Date Type Department Care Team (Late st Contact Info) Description 03/23/2024 [place] [address] Irene Lara MD [facility] [place] [address] Autoimmune hepatitis Social History Tobacco Use Types [...] hepatitis documented in this encounter Care Teams Senior Vice President Relationship Specialty Start Date End Date Nicolasa Prince APRN [address] [place] [address] PCP - General Family Medicine 01/08/21 documented as of this encounter
--- OUTSIDE RECORDS SUMMARY | 2024-03-31 00:09 | XMS_ITS | Encounter Summary ---
Author Organization Formerly [facility] [place] [address] Care Team Providers Care Diesel Crane Operator Name Role Phone Nicolasa Prince APRN Primary Care Provider +1- [phone] Reason for Visit * Reason Comments Medication Refill Encounter Details Date Type Department Care Team (Late st Contact Info) Description 09/15/2022 [place] [address] Irene Lara MD [facility] [place] [address] Autoimmune hepatitis Social History Tobacco Use Types [...] hepatitis documented in this encounter Care Teams Diesel Crane Operator Relationship Specialty Start Date End Date Nicolasa Prince APRN [address] [place] [address] PCP - General Family Medicine 01/08/21 documented as of this encounter
--- OUTSIDE RECORDS SUMMARY | 2024-03-31 00:09 | XMS_ITS | Encounter Summary ---
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
--- OUTSIDE RECORDS SUMMARY | 2024-03-31 00:09 | XMS_ITS | Encounter Summary ---
Author Organization [facility] [place] [address] Care Team Providers Care Barker Operator Name Role Phone Nicolasa Prince APRN Primary Care Provider +1- [phone] Encounter Details Date Type Department Care Team (Late st Contact Info) Description 05/23/2022 Telephone [place] [address] Alisia Driver Social History Tobacco Use Types [...] it can be handled by: Any Endoscopy Carding Machine Feeder documented in this encounter Plan of Treatment Not on file documented as of this encounter Visit Diagnoses Not on filedocumented in this encounter Care Teams Barker Operator Relationship Specialty Start Date End Date Nicolasa Prince APRN [address] [place] [address] PCP - General Family Medicine 01/08/21 documented as of this encounter
--- OUTSIDE RECORDS SUMMARY | 2024-03-31 00:09 | XMS_ITS | Encounter Summary ---
Author Organization [facility] [place] [address] Care Team Providers Care On Site Manager Name Role Phone Nicolasa Prince APRN Primary Care Provider +1- [phone] Encounter Details Date Type Department Care Team [...] on filedocumented in this encounter Care Teams On Site Manager Relationship Specialty Start Date End Date Nicolasa Prince APRN [address] [place] [address] PCP - General Family Medicine 01/08/21 documented as of this encounter
--- OUTSIDE RECORDS SUMMARY | 2024-03-31 00:09 | XMS_ITS | Encounter Summary ---
Author Organization Formerly [facility] [place] [address] Care Team Providers Care Puff Ironer Name Role Phone Nicolasa Prince APRN Primary Care Provider +1- [phone] Encounter Details Date Type Department Care Team (Late st Contact Info) Description 09/30/2022 1:00 PM EDT Office [place] [address] [facility] [place] [address] Primary biliary cholangitis; Hepatic cirrhosis, unspecified hepatic [...] [place] and she was managed by a track grinder at [facility]. Her records were extensively reviewed [...] normal since approximately 2016. She moved to [place] in 2019.. Living with her two brothers. [...] Vitals: 09/30/22 1248 BP: 128/72 BP Location ([facility]): Right arm Patient Position: Sitting BP Cuff [...] this in 3 months. Orders sent to [facility] PCP considering ozempic for diabetes, I have no concerns about this from a liver standpoint and support its use. Time spent with patient: 25 min Time spent reviewing records, documenting- all today : 7 min Irene Lamar MD Section of Gastroenterology & Hepatology [address] [place] [address] Cc: Nicolasa Prince APRN SURGICAL PATHOLOGY REPORT ? Patient: PREMA SALGADO ?MR #: [id number] ?Submitted by: Elie Moreno MD FINAL DIAGNOSIS [...] the ductules cannot be definitively distinguished from [place] ira bile ducts. ??There is patchy periportal hepatocellular [...] a prior liver biopsy reviewed at [facility] (see accession number [id number]), although the slides are not available for direct comparison at this time. ??However, based on the microscopic description, it appears that fibrosis may have progressed. documented in this encounter Plan of Treatment Not on file documented as of this encounter Results * AFP tumor marker (03/30/2023 10:23 AM EST) Alpha Fetoprotein 2.8 <=8.3 ng/mL [facility] Comment: This result was generated using a Mendoza Jonathan immunoassay. ??Results obtained from other methods or manufacturers cannot be used interchangeably with this method. Blood 03/30/2023 10:2 3 AM EST 03/30/2023 10:30 AM EST Narrative Resulting Agency Comment Spec In Lab Irene Lamar MD CHEMISTRY ORDERABLES Performing Organization Address [facility] Co de Phone Number [facility] [place] [address] * Prothrombin Time (03/30/2023 10:23 AM EST) Prothrombin Time 12.0 9.4 - 12.5 sec [facility] International Normalization Ratio 1.1 [facility] Comment: An INR <2.0 indicates adequate [...] MD HEMATOLOGY ORDERABLE S Performing Organization Address [facility] Co de Phone Number [facility] [address] * (ABNORMAL) Comprehensive metabolic panel (non-fasting) (03/30/2023 10:23 AM EST) Glucose 110 65 - 199 mg/dL [facility] Comment:Diabetes: >=200 mg/d L plus symptoms Blood Urea Nitrogen 20(H) 8 - 18 mg/dL [facility] Creatinine 0.82 0.70 - 1.20 mg/dL [facility] Sodium 140 135 - 145 mmol/L [facility] Potassium 4.1 3.5 - 5.0 mmol/L [facility] Comment: Please note: ??Patients with WBC >100,000 may have falsely elevated Potassium levels. ??For accurate Potassium quantification in these patients send serum separator tube (gold top) for subsequent determinations. ??Contact the Clinical Chemistry Laboratory if there are any questions. Chloride 105 98 - 107 mmol/L [facility] Carbon Dioxide 22 22 - 31 mmol/L [facility] Anion Gap 13 5 - 15 mmol/L [facility] Calcium 9.8 8.5 - 10.5 mg/dL [facility] Protein, Total 7.2 6.1 - 8.0 g/dL [facility] Albumin 4.4 3.2 - 5.2 g/dL [facility] Aspartate Aminotransferase 31(H) 0 - 30 unit/L [facility] Alanine Aminotransferase 24 0 - 30 unit/L [facility] Alkaline Phosphatase 64 35 - 105 unit/L [facility] Bilirubin, Total 0.7 0.2 - 1.3 mg/dL [facility] Est Glomerular Filtration Rate 77 >=60 mL/min/1. 73 m?? [facility] Comment: This patient's estimated GFR was [...] Lamar MD CHEMISTRY ORDERABLES Performing Organization Address City/State/[facility] Co de Phone Number [facility] [address] * US Abdomen Limited Hepatology Protocol (03/30/2023 [...] PM Electronically signed by: Ke Jay MD, [facility] ([phone]), at 03/30/2023 12:19 PM Thank you for letting us participate in the care of this patient. If you are a health care provider and have any questions regarding this report, please contact the number above. For patients who have questions, please contact the health palliative care specialist that requested your imaging first. ? Ke Jay, Staff Physician Electronically Signed Final Report ?? 03/30/2023 12:27 pm Narrative 03/30/2023 12:28 PM EST Abdominal ? (Signed Final 03/30/2023 12:27 pm) PATIENT INFO: ID #: ? [id number] ?: ??[birth year] (72 yrs)(F) Name: ? PREMA SALGADO ?Visit Date: 03/30/2023 09:52 am PERFORMED BY: Attending: ?Pierre LUTHER, Ke Conklin Resident: ? Joseph LUTHER, Ada Barrow Performed By: ? Elba Milian RDMS Referred By: ?IRENE LAMAR Location: ? [place] SERVICE(S) PROVIDED: [facility] - Hepatology Protocol - Abdominal ?92594 Limited Survey Single Organ or Quadrant - [id number] INDICATIONS: cirrhosis, screen for hcc COMPARISON: US: [...] 03/30/2023 12:27 pm) PATIENT INFO: ID #: [id number] : [birth year] (72 yrs)(F) Name: PREMA SALGADO Visit Date: 03/30/2023 09:52 am PERFORMED BY: Attending: Ke Jay MD Resident: Ada Ruiz MD Performed By: Elba Milian RDMS Referred By: IRENE LAMAR Location: [place] [facility] Hep[facility] Protocol - Abdominal 64359 Limited Survey Single Organ or Quadrant - [id number] INDICATIONS: cirrhosis, screen for hcc COMPARISON: US: [...] PM Electronically signed by: Ke Jay MD, [facility] ([phone]), at 03/30/2023 12:19 PM Thank you for letting us participate in the care of this patient. If you are a health care provider and have any questions regarding this report, please contact the number above. For patients who have questions, please contact the health palliative care specialist that requested your imaging first. Ke [...] present documented in this encounter Care Teams Puff Ironer Relationship Specialty Start Date End Date Nicolasa Prince APRN [address] [place] [id number] PCP - General Family Medicine 01/08/21 documented as of this encounter
--- OUTSIDE RECORDS SUMMARY | 2024-03-31 00:09 | XMS_ITS | Encounter Summary ---
[place] [address] Care Team Providers Care Window Glass Installer Name Role Phone Nicolasa Prince YULIA Primary Care Provider +1- [phone] Encounter Details Date Type Department Care Team (Latest Contact Info) Description 02/10/2022 10:15 AM EDT Laboratory Appointment Lab [address] [place] [phone] Primary biliary cholangitis; Type 2 diabetes mellitus with other specified complication, unspecified whether jail insulin use Social History Tobacco Use Types [...] with other specified complication, unspecified whether intermodal customer service insulin use HC VENIPUNCTURE Routine 02/10/2022 11:06 AM EDT Primary biliary cholangitis documented in this encounter Results * (ABNORMAL) Differential, Automated (02/10/2022 11:06 AM EDT) Neutrophil % 70.8 % [facility] Neutrophil Absolute 2.95 1.70 - 6.10 x10(3)/[facility] Lymph % 18.2 % [facility] Lymphocytes Abs 0.8(L) 0.9 - 3.2 x10(3)/[facility] Monocyte % 9.1 % [facility] Monocyte Abs 0.4 0.3 - 0.9 x10(3)/[facility] Eos % 1.2 % [facility] Eosinophils Abs 0.0 0.0 - 0.4 x10(3)/[facility] Basophil % 0.5 % [facility] Baso Absolute 0.0 0.0 - 0.1 x10(3)/[facility] Immature Gran % 0.20 % [facility] Comment: Immature granulocytes(IG's)percentage and absolute count will include metamyelocytes, myelocytes, and promyelocytes. Blood smears from CBCs yielding IG's will be scanned manually for concordance. If this scan disagrees with the automated IG or if promyelocytes are noted, a manual differential will be performed. Immature Gran Absolute 0.01 0.00 - 0.04 x10(3)/[facility] Blood Venous Draw / Unknown 02/10/2022 11:06 AM EDT 02/10/2022 12:06 PM EDT Narrative Resulting Agency Comment Spec In Lab Irene Lara MD HEMATOLOGY ORDERABLE S [facility] [place] [address] * (ABNORMAL) Hemogram (02/10/2022 11:06 AM EDT) [facility] White Blood Cell 4.2 4.0 - 9.5 x10(3)/[facility] Red Blood Cell 5.02 4.00 - 5.21 x10(6)/mc L [facility] Hemoglobin 15.8(H) 11.7 - 15.5 g/dL [facility] Hematocrit 45.7 35.7 - 45.8 % [facility] Mean Cell Volume 91.0 82.6 - 94.4 fL [facility] Mean Cell Hemoglobin 31.5 27.1 - 32.0 pg [facility] Mean Cell Hemoglobin Concentration 34.6 31.7 - 35.0 g/dL [facility] Platelet 118(L) 145 - 357 x10(3)/mc L [facility] RDW Standard Deviation 43.9 37.0 - 46.0 fL [facility] RDW coefficient of variation 13.1 11.5 - 14.1 % [facility] Mean Platelet Volume 10.4 7.6 - 12.9 fL [facility] NRBC% auto 0.0 % [facility] NRBC Absolute 0.000 0.000 - 0.000 x10(3)/mc L [facility] Blood Venous Draw / Unknown 02/10/2022 11:06 AM EDT 02/10/2022 12:06 PM EDT Narrative Resulting Agency Comment Spec In Lab Irene Lara MD HEMATOLOGY ORDERABLE S [facility] [place] [address] * (ABNORMAL) Hemoglobin A1c (02/10/2022 11:06 AM EDT) Hemoglobin A1c 7.0(H) 4.3 - 5.6 % [facility] Comment: Reference Range: 4.3 [...] Mellitus, Diabetes Care 2013; 36: Suppl. 1, S67-43 Estimated Average Glucose 155 mg/dL [facility] Comment: eAG equivalents for [...] into estimated average glucose values. ??Diabetes Care 2008:31(8):3479-9544. Blood 02/10/2022 11:0 6 AM EDT 02/10/2022 11:10 AM EDT Narrative Resulting Agency Comment Spec In Lab Irene Lara MD CHEMISTRY ORDERABLES [facility] [place] [address] * Hepatic Function Panel (02/10/2022 11:06 AM EDT) Protein, Total 7.4 6.1 - 8.0 g/dL [facility] Albumin 4.2 3.2 - 5.2 g/dL [facility] Aspartate Aminotransferase 21 0 - 30 unit/L [facility] Alanine Aminotransferase 17 0 - 30 unit/L [facility] Alkaline Phosphatase 71 35 - 105 unit/L [facility] Bilirubin, Total 0.6 0.2 - 1.3 mg/dL [facility] Bilirubin, Direct 0.2 0.0 - 0.3 mg/dL [facility] Blood 02/10/2022 11:0 6 AM EDT 02/10/2022 11:10 AM EDT Narrative Resulting Agency Comment Spec In Lab Irene Lara MD CHEMISTRY ORDERABLES [facility] [place] [address] documented in this encounter Visit Diagnoses Diagnosis Primary biliary cholangitis Type 2 diabetes mellitus with other specified complication, unspecified whether intermodal customer service insulin use documented in this encounter Care Teams Window Glass Installer Relationship Specialty Start Date End Date Nicolasa Prince APRN [address] [place] [address] PCP - General Family Medicine 01/08/21 documented as of this encounter
--- OUTSIDE RECORDS SUMMARY | 2024-03-31 00:09 | XMS_ITS | Encounter Summary ---
Author Organization [facility] [place] [address] Care Team Providers Care Cable Wirer Name Role Phone Nicolasa Prince APRN Primary Care Provider +1- [phone] Encounter Details Date Type Department Care Team (Late st Contact Info) Description 12/09/2022 Telephone [place] [address] Mai Larson Social History Tobacco Use Types [...] - 12/09/2022 2:33 PM EDT Cookie Damian [id number] Diagnosis/Indication: 6 mo Please review patient chart [...] your procedure. Who will likely be your front load trash truck driver for the procedure? *Please Verify [...] on filedocumented in this encounter Care Teams Cable Wirer Relationship Specialty Start Date End Date Nicolasa Prince APRN [address] [place] [address] PCP - General Family Medicine 01/08/21 documented as of this encounter
--- OUTSIDE RECORDS SUMMARY | 2024-03-31 00:09 | XMS_ITS | Encounter Summary ---
Author Organization [facility] [place] [address] Care Team Providers Care Voice Network Engineer Name Role Phone Nicolasa Prince YULIA Primary Care Provider +1- [phone] Reason for Visit * Auth/Cert (Routine) Specialty [...] GI ENDOSCOPY COLONOSCOPY, DIAGNOSTIC Elin Carlson MD [facility] [place] [place] [address] [facility] Referral ID Status Reason Start Date Expiration Date Visits Re quested Visits Authorized [id number] 1 1 Encounter Details Date Type Department Care Team (Late st Contact Info) Description 08/07/2022 2:00 PM EDT - 08/07/2022 3:00 PM EDT Surgery [place] [address] Elin Carlson MD [facility] [place] [place] [address] EGD, UPPER GI ENDOSCOPY (WRVU 2.09) Social [...] But it can happen after polyps are mariley deepti. This care sheet gives you a [...] the day after the test, use an dyke-xmb-oiujuni spray or lozenges to numbyour throat. Warm [...] occurs, please contact your doctor. Please call [phone] before 8pm Mon-Fri with problems, questions, or concerns. If you call after 8pm or on weekends, call the Hospital at [phone] and ask for the Metal Weigher convention manager and the collating machine operator will contact that person for [...] more? You can view health information on [employer], your personal patient account. Log in or sign up today. Content Version: 12.2 ?? [id number] [employer]. Care instructions adapted under license by [facility]. If you have questions about a medical condition or this instruction, always ask your healthcare professional. [employer] disclaims any warranty or liability for your [...] Diagnosis Code ??? Atherosclerotic heart disease of [place] coronary artery without angina pectoris I25.10 EXAM: [...] REPORT Routine 08/07/2022 2:57 PM EDT Colonoscopy, Flexible W Control Bleeding, Any Method (23593) 08/07/2022 2:21 PM EDT Hepatic cirrhosis, unspecified hepatic cirrhosis type, unspecified whether ascites present Screening for colon cancer Colonoscpy, Flex, W/Dir Submuc Inject (79572) 08/07/2022 2:21 PM EDT Hepatic cirrhosis, unspecified hepatic cirrhosis type, unspecified whether ascites present Screening for colon cancer Colonoscopy, Remv Lesn, Snare (60122) 08/07/2022 2:21 PM EDT Hepatic cirrhosis, unspecified hepatic cirrhosis type, unspecified whether ascites present Screening for colon cancer Upper GI Endoscopy, Diagnostic (93025) 08/07/2022 2:21 PM EDT Hepatic cirrhosis, unspecified hepatic cirrhosis type, unspecified whether ascites present Screening for colon cancer UPPER GI ENDOSCOPY Routine 08/07/2022 2: 10 PM EDT COLONOSCOPY Routine 08/07/2022 2:10 PM EDT documented in this encounter Results * Specimen to Pathology (08/07/2022 3:25 PM EDT) AP Specimen 08/07/2022 3:25 PM EDT 08/07/2022 3:25 PM EDT Narrative [facility] - 08/07/2022 3:25 PM EDT Specimen requisition ordered. ??Separate Pathology report to follow Elin Carlson MD PATHOLOGY/CYTOLOGY O MEENU [facility] [place] [address] * Specimen to Pathology (08/07/2022 3:25 PM EDT) AP Specimen 08/07/2022 3:25 PM EDT 08/07/2022 3:25 PM EDT Narrative [facility] - 08/07/2022 3:25 PM EDT Specimen requisition ordered. ??Separate Pathology report to follow Elin Carlson MD PATHOLOGY/[place] [address] * Surgical Pathology Report (08/07/2022 2:57 PM EDT) Final Diagnosis [id number] ? Location: 4T; EA12; A The signing [...] Arpit Verified: ??08/26/2022 16:10 ??Pathologist Performed at: ??[facility], [place] [address] Aerospace Project Engineer: Stefan Min MD, FCAP, ??CLIA Certificate: [id number] SPECIMEN(S) SUBMITTED A - transverse colon polyp, [...] labeled B1-B2. ??shb 08/26/2022 4:10 PM EDT [facility] GI Biopsy 08/07/2022 2:57 PM EDT 08/07/2022 2:57 PM EDT GI Biopsy 08/07/2022 2:57 PM EDT 08/07/2022 2:57 PM EDT Elin Carlson MD PATHOLOGY/CYTOLOGY O RDMARANDABLES [facility] [place] [address] [facility] [place] [address] * UPPER GI ENDOSCOPY (08/07/2022 2:10 PM EDT) UPPER GI ENDOSCOPY [facility] Endoscopy Procedure Date: 08/07/2022 2:10 PM ? Patient Name: Cookie Salgado ? N: [id number] ? Date of : 1950 ? Age: 71 ? Order #: [id number] ? Instrument Name: [id number]- [id number] ? Procedure: ? Upper GI endoscopy Indications: [...] * COLONOSCOPY (08/07/2022 2:10 PM EDT) COLONOSCOPY [facility] Endoscopy Procedure Date: 08/07/2022 2:10 PM ? Patient Name: Cookie Salgado ? Date of : 1950 ? Age: 71 ? Order #: [id number] ? Instrument Name: [id number] ? Procedure: ? Colonoscopy Indications: ? Screening [...] ? was evaluated using the BBPS ? ([place] Bowel Preparation Scale) ? with scores of: [...] Procedure Code(s): ? --- Professional --- ? 29848, Colonoscopy, flexible; with ? endoscopic mucosal resection ? 11522, 59, Colonoscopy, flexible; ? with removal of tumor(s), polyp(s), ? or other lesion(s) by snare ? technique CPT copyright 2020 [employer]. All rights reserved. The codes documented in this report are preliminary and upon dictating machine transcriber review may be revised to meet current compliance requirements. Attending Participation: ? I personally performed the entire procedure. ? Elin Carlson MD _ Elin Carlson MD 08/07/2022 3:40:14 PM This report has been signed electronically. Number of Addenda: 0 Note Initiated On: 08/07/2022 2:10 PM PROVATION 08/07/2022 2:10 PM EDT Nicolasa Prince CAN FILLING MACHINE OPERATOR GENERAL SURGICAL O RDERABLES PROVATION documented [...] RN) documented in this encounter Care Teams Voice Network Engineer Relationship Specialty Start Date End Date Nicolasa Prince, YULIA [address] [address] PCP - General Family Medicine 01/08/21 documented as of this encounter
--- OUTSIDE RECORDS SUMMARY | 2024-03-31 00:09 | XMS_ITS | Encounter Summary ---
Author Organization [facility] Address [facility] [place] [address] Care Team Providers Care Logistics Tech Name Role Phone Nicolasa Prince APRN Primary Care Provider +1- [phone] Encounter Details Date Type Department Care Team (Late st Contact Info) Description 12/02/2022 Telephone [place] [phone] Irene Lara MD [facility] [place] [address] Social History Tobacco Use Types Packs/Day Years [...] Lara MD Section of Gastroenterology & Hepatology [address] [place] [address] documented in this encounter Plan of Treatment Not on file documented as of this encounter Visit Diagnoses Not on filedocumented in this encounter Care Teams Logistics Tech Relationship Specialty Start Date End Date Nicolasa Prince APRN [address] [place] [address] PCP - General Family Medicine 01/08/21 documented as of this encounter
--- OUTSIDE RECORDS SUMMARY | 2024-03-31 00:09 | XMS_ITS | Encounter Summary ---
Author Organization [facility] Address [facility] [place] [address] Care Team Providers Care Magazine Hand Name Role Phone Nicolasa Prince APRN Primary Care Provider +1- [phone] Encounter Details Date Type Department Care Team (Late st Contact Info) Description 02/15/2022 Orders [place] [address] Irene Lara MD [facility] [place] [address] Hepatic cirrhosis, unspecified hepatic cirrhosis type, unspecified [...] colon documented in this encounter Care Teams Magazine Hand Relationship Specialty Start Date End Date Nicolasa Prince APRN [address] [place] [address] PCP - General Family Medicine 01/08/21 documented as of this encounter
--- OUTSIDE RECORDS SUMMARY | 2024-03-31 00:09 | XMS_ITS | Encounter Summary ---
Author Organization [facility] [place] [address] Care Team Providers Care Safety Trainer Name Role Phone Nicolasa Prince APRN Primary Care Provider +1- [phone] Encounter Details Date Type Department Care Team (Late st Contact Info) Description 11/30/2022 External Results [place] [address] Irene Lara MD [facility] [place] [address] Social History Tobacco Use Types Packs/Day Years [...] on filedocumented in this encounter Care Teams Safety Trainer Relationship Specialty Start Date End Date Nicolasa Prince APRN [address] [place] [address] PCP - General Family Medicine 01/08/21 documented as of this encounter
--- OUTSIDE RECORDS SUMMARY | 2024-03-31 00:09 | XMS_ITS | Encounter Summary ---
[place] [address] Care Team Providers Care Secretary Specialist Name Role Phone Nicolasa Prince APRN Primary Care Provider +1- [phone] Reason for Referral * Diagnostic Test (Routine) - Closed Specialty Diagnoses / Procedures Referred By Minh miguel Referred To Contact Radiology Diagnoses Primary biliary cholangitis Procedures MRI Abdomen wwo Contrast (Generic) Harmony Dobson APRN [facility] [place] [address] [place] [address] Referral ID Status Reason Start Date Expiration Date V isits Requested Visits Authorized [id number] Closed Specialty Service Requested 02/19/2021 08/20/2022 1 1 Reason for Visit * Reason Comments GI Problem * Consultation (Routine) - Closed Specialty Diagnoses / Procedures Referred By Minh miguel Referred To Contact Gastroenterology Diagnoses Primary biliary cirrhosis Primary biliary cirrhosis Nicolasa Prince APRN [address] [place] [address] [facility] [place] [address] [address] Referral ID Status Reason Start Date Expiration Date V isits Requested Visits Authorized [id number] Closed Consult, Test & Treat Connection Center PCP Updated and/or Approved 12/25/2020 06/27/2021 6 6 Encounter Details Date Type Department Care Team (Late st Contact Info) Description 02/19/2021 9:00 AM EDT Office [place] [phone] Harmony Dobson APRN [facility] [place] [address] Primary biliary cholangitis; Hepatic cirrhosis, unspecified hepatic [...] HEPATOLOGY NEW PATIENT CONSULTATION Cookie Salgado 1950 BOX SPINNER: HARMONY DOBSON APRN PCP: Nicolasa Prince APRN Requesting Provider: REASON FOR CONSULTATION Primary biliary cholangitis, AIH, cirrhosis transfer of care HISTORY OF PRESENT ILLNESS Cookie Salgado is a 70 y.o. year old female with history of Primary biliary cholangitis who presents today to establish care for her PBC. She was previously followed by hepatology in [place] and recently moved to [place]. She was last followed by GI at [place] - Dr. Yasmin Fletcher. Takes Ursodiol 500mg [...] October 2020. She is living in the [facility] with her brother and has had [...] T2 correlate or washout/pseudocapsule (LI-RADS 3). A sales representative publications lesion is seen on series 9 image [...] D3,) 50 mcg (2,000 unit) [facility]. ??? losartan (Cozaar) 50 mg Tablet ??? 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 Lives near 2 brothers. Alcohol: [...] T2 correlate or washout/pseudocapsule (LI-RADS 3). A sales representative publications lesion is seen on series 9 image [...] previously followed by Dr. Yasmin Woodson at [facility] and has been on a relatively [...] Dobson APRN Section of Gastroenterology [place] [address] Copy: Nicolasa Prince APRN [address] / [facility] [address] documented in this encounter Plan of Treatment [...] who have questions please contact the health critical care technician that requested your imaging first. [...] patients who have questions please contactthe health critical care technician that requested your imaging first. Harmony Dobson CERTIFIED REGISTERED NURSE PRACTITIONER IMG MRI ORDERABLES * Differential, Automated (02/19/2021 10:54 AM EDT) Neutrophil % 65.2 % [facility] Neutrophil Absolute 3.05 1.70 - 6.10 x10(3)/[facility] Lymph % 23.9 % [facility] Lymphocytes Abs 1.1 0.9 - 3.2 x10(3)/[facility] Monocyte % 8.8 % [facility] Monocyte Abs 0.4 0.3 - 0.9 x10(3)/[facility] Eos % 1.3 % [facility] Eosinophils Abs 0.1 0.0 - 0.4 x10(3)/[facility] Basophil % 0.6 % [facility] Baso Absolute 0.0 0.0 - 0.1 x10(3)/[facility] Immature Gran % 0.20 % [facility] Comment: Immature granulocytes(IG's)percentage and absolute count will include metamyelocytes, myelocytes, and promyelocytes. Blood smears from CBCs yielding IG's will be scanned manually for concordance. If this scan disagrees with the automated IG or if promyelocytes are noted, a manual differential will be performed. Immature Gran Absolute 0.01 0.00 - 0.04 x10(3)/[facility] Blood 02/19/2021 10:5 4 AM EDT 02/19/2021 11:02 AM EDT Narrative Resulting Agency Comment Spec In Lab Harmony Dobson CERTIFIED REGISTERED NURSE PRACTITIONER HEMATOLOGY ORDERAB LES Performing Organization Address City/[facility]/ZIP Co de Phone Number [facility] [place] [address] * (ABNORMAL) Hemogram (02/19/2021 10:54 AM EDT) White Blood Cell 4.7 4.0 - 9.5 x10(3)/mc L [facility] Red Blood Cell 5.15 4.00 - 5.21 x10(6)/mc L [facility] Hemoglobin 16.6(H) 11.7 - 15.5 g/dL [facility] Hematocrit 48.4(H) 35.7 - 45.8 % [facility] Mean Cell Volume 94.0 82.6 - 94.4 fL [facility] Mean Cell Hemoglobin 32.2(H) 27.1 - 32.0 pg [facility] Mean Cell Hemoglobin Concentration 34.3 31.7 - 35.0 g/dL [facility] Platelet 146 145 - 357 x10(3)/mc L [facility] RDW Standard Deviation 46.0 37.0 - 46.0 fL [facility] RDW coefficient of variation 13.3 11.5 - 14.1 % [facility] Mean Platelet Volume 10.6 7.6 - 12.9 fL [facility] NRBC% auto 0.0 % [facility] NRBC Absolute 0.000 0.000 - 0.000 x10(3)/mc L [facility] Blood 02/19/2021 10:5 4 AM EDT 02/19/2021 11:02 AM EDT Narrative Resulting Agency Comment Spec In Lab Harmony Dobson YULIA HEMATOLOGY ORDERAB LES Performing Organization Address City/[facility]/ZIP Co de Phone Number [facility] [place] [address] * (ABNORMAL) Hemoglobin A1c (02/19/2021 10:54 AM EDT) Hemoglobin A1c 8.0(H) 4.3 - 5.6 % [facility] [...] Mellitus, Diabetes Care 2013; 36: Suppl. 1, S67-76 Estimated Average Glucose 181 mg/dL [facility] [...] into estimated average glucose values. ??Diabetes Care 2008:31(8):8084-3073. Blood 02/19/2021 10:5 4 AM EDT 02/19/2021 11:02 AM EDT Narrative Resulting Agency Comment Spec In Lab Harmony Mccallumzahira BENDER CHEMISTRY ORDERABL ES Performing Organization Address [facility] de Phone Number [facility] [place] [address] * Prothrombin Time (02/19/2021 10:54 AM EDT) Pathologist [facility] Prothrombin Time 11.7 9.4 - 12.5 sec [facility] International Normalization Ratio 1.0 [facility] Comment: An INR <2.0 [...] BENDER HEMATOLOGY ORDERAB LES Performing Organization Address [facility] de Phone Number [facility] [place] [address] * AFP tumor marker (02/19/2021 10:54 AM EDT) [facility] Alpha Fetoprotein 3.0 <=8.3 ng/mL [facility] Blood 02/19/2021 10:5 4 AM EDT 02/19/2021 11:02 AM EDT Narrative Resulting Agency Comment Spec In Lab Harmony Mccallumzahira BENDER CHEMISTRY ORDERABL ES Performing Organization Address [facility] Co de Phone Number [facility] [place] [address] * (ABNORMAL) Comprehensive metabolic panel (non-fasting) (02/19/2021 10:54 AM EDT) Pathologist [facility] Glucose 141 65 - 199 mg/dL [facility] Comment:Diabetes: >=200 mg/d L plus symptoms Blood Urea Nitrogen 23(H) 8 - 18 mg/dL [facility] Creatinine 0.79 0.70 - 1.20 mg/dL [facility] Sodium 136 135 - 145 mmol/L [facility] Potassium 4.2 3.5 - 5.0 mmol/L [facility] Comment: Please note: ??Patients with WBC >100,000 may have falsely elevated Potassium levels. ??For accurate Potassium quantification in these patients send serum separator tube (gold top) for subsequent determinations. ??Contact the Clinical Chemistry Laboratory if there are any questions. Chloride 104 98 - 107 mmol/L [facility] Carbon Dioxide 24 22 - 31 mmol/L [facility] Anion Gap 8 5 - 15 mmol/L [facility] Calcium 10.0 8.5 - 10.5 mg/dL [facility] Protein, Total 7.9 6.1 - 8.0 g/dL [facility] Albumin 4.3 3.2 - 5.2 g/dL [facility] Aspartate Aminotransferase 24 0 - 30 unit/L [facility] Alanine Aminotransferase 21 0 - 30 unit/L [facility] Alkaline Phosphatase 81 35 - 105 unit/L [facility] Bilirubin, Total 0.6 0.2 - 1.3 mg/dL [facility] Est Glomerular Filtration Rate 77 >=60 mL/min/1. 73 m?? [place] [...] Lab Harmony Dobson APRN CHEMISTRY ORDERABL ES [facility] [place] [address] documented in this encounter Visit Diagnoses Diagnosis Primary biliary cholangitis Hepatic cirrhosis, unspecified hepatic cirrhosis type, unspecified whether ascites present Autoimmune hepatitis Screening for colon cancer Special screening for malignant neoplasms, colon Primary biliary cholangitis documented in this encounter Care Teams Secretary Specialist Relationship Specialty Start Date End Date Nicolasa Prince APRN [address] [place] [address] PCP - General Family Medicine 01/08/21 documented as of this encounter
--- OUTSIDE RECORDS SUMMARY | 2024-03-31 00:09 | XMS_ITS | Encounter Summary ---
Author Organization [facility] [place] [address] Care Team Providers Care Spa Host Name Role Phone Nicolasa Prince APRN Primary Care Provider +1- [phone] Encounter Details Date Type Department Care Team (Late st Contact Info) Description 07/22/2022 External Results [place] [address] Irene Lara MD [facility] [address] Social History Tobacco Use Types Packs/Day Years [...] on filedocumented in this encounter Care Teams Spa Host Relationship Specialty Start Date End Date Nicolasa Prince APRN [address] [place] [address] PCP - General Family Medicine 01/08/21 documented as of this encounter
--- OUTSIDE RECORDS SUMMARY | 2024-03-31 00:09 | XMS_ITS | Encounter Summary ---
Author Organization [facility] [place] [address] Care Team Providers Care Deck Cadet Name Role Phone Nicolasa Prince APRN Primary Care Provider +1- [phone] Encounter Details Date Type Department Care Team (Late st Contact Info) Description 07/22/2021 1:30 PM EDT Office [place] [address] Carolynn Lamar MD [facility] [place] [address] Primary biliary cholangitis; Type 2 diabetes mellitus [...] [place] and she was managed by a emergency medicine physician at [facility]. Her records were extensively reviewed today [...] been normal sinceapproximately 2017. She moved to [place] about a year ago. She is living [...] MD Section of Gastroenterology & Hepatology [address] [place] [address] Cc: Nicolasa Prince APRN SURGICAL PATHOLOGY REPORT ? Patient: PREMA SALGADO ?MR #: [id number] ?Submitted by: Elie Moreno MD FINAL DIAGNOSIS [...] the ductules cannot be definitively distinguished from prairie band bile ducts. ??There is patchy periportal hepatocellular [...] had a prior liver biopsy reviewed at [facility] (see accession number [id number]), although the slides are not available for [...] dilatation. Electronically signed by: Fiordaliza Fabian MD, [facility] ([phone]), at 02/10/2022 10:32 AM Thank you for letting us participate in the care of this patient. If you are a health care provider and have any questions regarding this report, please contact the number above. For patients who have questions, please contact the health animal care provider that requested your imaging first. ? Fiordaliza Fabian, Staff Physician Electronically Signed Final Report ?? 02/10/2022 10:39 am Narrative 02/10/2022 10:39 AM EDT Abdominal ? (Signed Final 02/10/2022 10:39 am) PATIENT INFO: ID #: ? [id number] ?: ??[birth year] (71 yrs)(F) Name: ? PREMA SALGADO ?Visit Date: 02/10/2022 10:18 am PERFORMED BY: Performed By: ? Sarahi Flores RDMS Attending: ?Caren LUTHER, Fiordaliza Prado Referred By: ?CAROLYNN HENSLEYR Location: ? [place] [facility] - Hepatology Protocol - Abdominal ?22863 Limited Survey Single Organ or Quadrant - [id number] INDICATIONS: Cirrhosis, screen for HCC COMPARISON: MRI [...] 02/10/2022 10:39 am) PATIENT INFO: ID #: [id number] : 54 (71 yrs)(F) Name: PREMA SALGADO Visit Date: 02/10/2022 10:18 am PERFORMED BY: Performed By: Sarahi Flores RDMS Attending: Fiordaliza Fabian MD Referred By: CAROLYNN LAMAR Location: [place] SERVICE(S) PROVIDED: [facility] - Hepatology Protocol - Abdominal 53316 Limited Survey Single Organ or Quadrant - [id number] INDICATIONS: Cirrhosis, screen for HCC COMPARISON: MRI [...] have questions, please contact the health animal care provider that requested your imaging first. Fiordaliza Fabian, Staff Physician Electronically Signed Final Report 02/10/2022 10:39 am Carolynn Lamar MD IMG US GEN ORDERABLE S * Prothrombin Time (07/22/2021 11:40 AM EDT) Prothrombin Time 11.6 9.4 - 12.5 sec [facility] International Normalization Ratio 1.0 [facility] Comment: [...] MD HEMATOLOGY ORDERABLE S Performing Organization Address [facility] Co de Phone Number [facility] [place] [address] * AFP tumor marker (07/22/2021 11:40 AM EDT) Alpha Fetoprotein 3.4 <=8.3 ng/mL [facility] Blood 07/22/2021 11:4 0 AM EDT 07/22/2021 11:55 AM EDT Narrative Resulting Agency Comment Spec In Lab Carolynn Lamar MD CHEMISTRY ORDERABLES Performing Organization Address [facility]/ZIP Co de Phone Number [facility] [place] [address] * (ABNORMAL) Comprehensive metabolic panel (non-fasting) (07/22/2021 11:40 AM EDT) Glucose 156 65 - 199 mg/dL [facility] Comment:Diabetes: >=200 mg/d L plus symptoms Blood Urea Nitrogen 23(H) 8 - 18 mg/dL [facility] Creatinine 0.88 0.70 - 1.20 mg/dL [facility] Sodium 135 135 - 145 mmol/L [facility] Potassium 4.4 3.5 - 5.0 mmol/L [facility] Comment: Please note: ??Patients with WBC >100,000 may have falsely elevated Potassium levels. ??For accurate Potassium quantification in these patients send serum separator tube (gold top) for subsequent determinations. ??Contact the Clinical Chemistry Laboratory if there are any questions. Chloride 104 98 - 107 mmol/L [facility] Carbon Dioxide 18(L) 22 - 31 mmol/L [facility] Anion Gap 13 5 - 15 mmol/L [facility] Calcium 10.0 8.5 - 10.5 mg/dL [facility] Protein, Total 7.8 6.1 - 8.0 g/dL [facility] Albumin 4.5 3.2 - 5.2 g/dL [facility] Aspartate Aminotransferase 29 0 - 30 unit/L [facility] Alanine Aminotransferase 26 0 - 30 unit/L [facility] Alkaline Phosphatase 89 35 - 105 unit/L [facility] Bilirubin, Total 0.7 0.2 - 1.3 mg/dL [facility] Est Glomerular Filtration Rate 68 >=60 mL/min/1. 73 m?? [facility] Comment: This patient? s [...] Lamar MD CHEMISTRY ORDERABLES Performing Organization Address City/[facility] Co de Phone Number [facility] [place] [address] documented in this encounter Visit Diagnoses Diagnosis Primary biliary cholangitis Type 2 diabetes mellitus without complication, without long-term current use of insulin Hepatic cirrhosis, unspecified hepatic cirrhosis type, unspecified whether ascites present Primary biliary cholangitis Hepatic cirrhosis, unspecified hepatic cirrhosis type, unspecified whether ascites present documented in this encounter Care Teams Deck Cadet Relationship Specialty Start Date End Date Nicolasa Prince APRN [address] [place] [address] PCP - General Family Medicine 01/08/21 documented as of this encounter
--- OUTSIDE RECORDS SUMMARY | 2024-03-31 00:09 | XMS_ITS | Encounter Summary ---
Author Organization [facility] [place] [address] Care Team Providers Care Aircraft Lay Out Worker Name Role Phone Nicolasa Prince APRN Primary Care Provider +1- [phone] Encounter Details Date Type Department Care Team [...] on filedocumented in this encounter Care Teams Aircraft Lay Out Worker Relationship Specialty Start Date End Date Nicolasa Prince APRN [address] [place] [address] PCP - General Family Medicine 01/08/21 documented as of this encounter
--- OUTSIDE RECORDS SUMMARY | 2024-03-31 00:09 | XMS_ITS | Encounter Summary ---
Author [facility] [place] [address] Care Team Providers Care Director Of Maternity Services Name Role Phone Nicolasa Prince APRN Primary Care Provider +1- [phone] Encounter Details Date Type Department Care Team (Late Contact Info) Description 09/04/2021 Telephone [place] [phone] Thania Wilson, RN Social History Tobacco Use [...] at 09/03/2021 10:04 AM EDT ----- No [facility] account. AIH/PBC- recently cut azathioprine dose. [...] on filedocumented in this encounter Care Teams Director Of Maternity Services Relationship Specialty Start Date End Date Nicolasa Prince, PARAPROFESSIONAL INTERPRETER [address] [place] [address] PCP - General Family Medicine 01/08/21 documented as of this encounter
--- OUTSIDE RECORDS SUMMARY | 2024-03-31 00:09 | XMS_ITS | Encounter Summary ---
Author Organization [facility] [place] [address] Care Team Providers Care Adult Probation Officer Name Role Phone Nicolasa Prince APRN Primary Care Provider +1- [phone] Encounter Details Date Type Department Care Team (Late st Contact Info) Description 11/02/2022 External Results Gastroenterology at [facility], [place] [address] Irene Lara MD [facility] [address] Social History Tobacco Use Types Packs/Day Years [...] on filedocumented in this encounter Care Teams Adult Probation Officer Relationship Specialty Start Date End Date Nicolasa Prince APRN [address] [place] [address] PCP - General Family Medicine 01/08/21 documented as of this encounter
--- OUTSIDE RECORDS SUMMARY | 2024-03-31 00:09 | XMS_ITS | Encounter Summary ---
Author Organization [facility] [place] [address] Care Team Providers Care Conductor Pullman Name Role Phone Nicolasa Prince APRN Primary Care Provider +1- [phone] Reason for Visit * Reason Comments Medication Refill Encounter Details Date Type Department Care Team (Late st Contact Info) Description 07/17/2022 [place]ill [place] [address] Irene Lara MD [facility] [place] [address] Autoimmune hepatitis Social History Tobacco Use Types [...] labs. She would like orders faxed to [facility]. Orders sent. Provided patient with contact information for [facility] Lab. documented in this encounter Plan of Treatment Not on file documented as of this encounter Visit Diagnoses Diagnosis Autoimmune hepatitis documented in this encounter Care Teams Conductor Pullman Relationship Specialty Start Date End Date Nicolasa Prince APRN [address] [place] [address] PCP - General Family Medicine 01/08/21 documented as of this encounter
--- OUTSIDE RECORDS SUMMARY | 2024-03-31 00:09 | XMS_ITS | Encounter Summary ---
Author Organization [facility] Address [facility] [place] [address] Care Team Providers Care Resistance Machine Welder Setter Name Role Phone Nicolasa Prince APRN Primary Care Provider +1- [phone] Encounter Details Date Type Department Care Team (Late st Contact Info) Description 11/24/2021 External [place] [address] Irene Lara MD [facility] [place] [address] Social History Tobacco Use Types Packs/Day Years [...] on filedocumented in this encounter Care Teams Resistance Machine Welder Setter Relationship Specialty Start Date End Date Nicolasa Prince APRN [address] [place], [place] [address] PCP - General Family Medicine 01/08/21 documented as of this encounter
--- OUTSIDE RECORDS SUMMARY | 2024-03-31 00:09 | XMS_ITS | Encounter Summary ---
Author Organization [facility] [place] [address] Care Team Providers Care Architect Intern Name Role Phone Nicolasa Prince APRN Primary Care Provider +1- [phone] Encounter Details Date Type Department Care Team (Late st Contact Info) Description 10/14/2021 External Results [place] [address] Irene Lara MD [facility] [place] [address] Social History Tobacco Use Types Packs/Day Years [...] on filedocumented in this encounter Care Teams Architect Intern Relationship Specialty Start Date End Date Nicolasa Prince APRN [address] [place], [place] [address] PCP - General Family Medicine 01/08/21 documented as of this encounter
--- OUTSIDE RECORDS SUMMARY | 2024-03-31 00:09 | XMS_ITS | Encounter Summary ---
Author Organization [facility] Address [facility] [place] [address] Care Team Providers Care Semiautomatic Stitcher Operator Name Role Phone Nicolasa Prince YULIA Primary Care Provider +1- [phone] Encounter Details Date Type Department Care Team (Latest Contact Info) Description 02/10/2022 9:51 AM EDT - 02/10/2022 11:59 PM EDT Hospital En[place] [phone] Carolynn Lamar MD [facility] [place] [address] Primary biliary cholangitis; Hepatic cirrhosis, unspecified hepatic [...] who have questions, please contact the health resident care associate that requested your imaging first. ? Fiordaliza Fabian, Staff Physician Electronically Signed Final Report ?? 02/10/2022 10:39 am Narrative 02/10/2022 10:39 AM EDT Abdominal ? (Signed Final 02/10/2022 10:39 am) PATIENT INFO: ID #: ? [id number] ?: ??[birth year] (71 yrs)(F) Name: ? PREMA SALGADO ?Visit Date: 02/10/2022 10:18 am PERFORMED BY: Performed By: ? Sarahi Flores RDMS Attending: ?Caren LUTHER, Fiordaliza Prado Referred By: ?CAROLYNN LAMAR Location: ? [place] SERVICE(S) [facility]: [facility] - Hepatology Protocol - Abdominal ?42081 Limited Survey Single Organ or Quadrant - [id number] INDICATIONS: Cirrhosis, screen for HCC COMPARISON: MRI [...] 02/10/2022 10:39 am) PATIENT INFO: ID #: [id number] : 54 (71 yrs)(F) Name: PREMA SALGADO Visit Date: 02/10/2022 10:18 am PERFORMED BY: Performed By: Sarahi Flores RDMS Attending: Fiordaliza Fabian MD Referred By: CAROLYNN LAMAR Location: [place] [facility] Hepatology Protocol - Abdominal 11786 Limited Survey Single Organ or Quadrant - [id number] INDICATIONS: Cirrhosis, screen for HCC COMPARISON: MRI [...] who have questions, please contact the health resident care associate that requested your imaging first. Fiordaliza Fabian, Staff Physician Electronically Signed Final Report 02/10/2022 10:39 am Carolynn Lamar MD IMG US GEN ORDERABLE S documented in this encounter Visit Diagnoses Diagnosis Primary biliary cholangitis Hepatic cirrhosis, unspecified hepatic cirrhosis type, unspecified whether ascites present documented in this encounter Care Teams Semiautomatic Stitcher Operator Relationship Specialty Start Date End Date Suresh Nicolasa Chan, YULIA [address] [place] [address] PCP - General Family Medicine 01/08/21 documented as of this encounter
--- OUTSIDE RECORDS SUMMARY | 2024-03-31 00:09 | XMS_ITS | Encounter Summary ---
Author Organization [facility] [place] [address] Care Team Providers Care Land Sales Agent Name Role Phone Nicolasa Prince APRN Primary Care Provider +1- [phone] Encounter Details Date Type Department Care Team [...] on filedocumented in this encounter Care Teams Land Sales Agent Relationship Specialty Start Date End Date Nicolasa Prince APRN [address] [place] [address] PCP - General Family Medicine 01/08/21 documented as of this encounter
--- OUTSIDE RECORDS SUMMARY | 2024-03-31 00:09 | XMS_ITS | Encounter Summary ---
Author Organization [facility] [place] [address] Care Team Providers Care Bore Mill Operator For Plastic Name Role Phone Nicolasa Prince APRN Primary Care Provider +1- [phone] Reason for Visit * Reason Comments Medication Refill Encounter Details Date Type Department Care Team (Late st Contact Info) Description 10/15/2022 Refill [place] [address] Irene Lara MD [facility] [place] [address] Autoimmune hepatitis Social History Tobacco Use Types [...] hepatitis documented in this encounter Care Teams Bore Mill Operator For Plastic Relationship Specialty Start Date End Date Nicolasa Prince APRN [address] [place] [address] PCP - General Family Medicine 01/08/21 documented as of this encounter
--- OUTSIDE RECORDS SUMMARY | 2024-03-31 00:09 | XMS_ITS | Encounter Summary ---
Author Organization [facility] Address [facility] [place] [address] Care Team Providers Care Credit Checker Name Role Phone Nicolasa Prince APRN Primary Care Provider +1- [phone] Encounter Details Date Type Department Care Team (Late st Contact Info) Description 01/28/2021 Orders Only Cardiology at [address] [address] Kylah Arellano APRN [facility] [place] [address] Atherosclerosis of [place] coronary artery without angina pectoris, unspecified whether [place] or transplanted heart Social History Tobacco Use [...] this encounter Visit Diagnoses Diagnosis Atherosclerosis of [place] coronary artery without angina pectoris, unspecified whether [place] or transplanted heart documented in this encounter Care Teams Credit Checker Relationship Specialty Start Date End Date Nicolasa Prince APRN [address] [place] [address] PCP - General Family Medicine 01/08/21 documented as of this encounter
--- OUTSIDE RECORDS SUMMARY | 2024-03-31 00:09 | XMS_ITS | Encounter Summary ---
Author Organization [facility] [place] [address] Care Team Providers Care Threader Name Role Phone Nicolasa Prince APRN Primary Care Provider +1- [phone] Encounter Details Date Type Department Care Team (Late st Contact Info) Description 01/22/2021 Telephone Cardiology at [address] [phone] Lorie Garza, JAY Social History Tobacco Use [...] on filedocumented in this encounter Care Teams Threader Relationship Specialty Start Date End Date Nicolasa Prince APRN [address] [place] [address] PCP - General Family Medicine 01/08/21 documented as of this encounter
--- OUTSIDE RECORDS SUMMARY | 2024-03-31 00:09 | XMS_ITS | Encounter Summary ---
Author Organization [facility] [place] [address] Care Team Providers Care Environmental Scientist Name Role Phone Nicolasa Prince APRN Primary Care Provider +1- [phone] Encounter Details Date Type Department Care Team (Late st Contact Info) Description 06/09/2022 Telephone [place] [address] Mai Larson Social History Tobacco Use Types Packs/Day Years Used Date Smoking Tobacco: Former Smokeless Tobacco: Never Sex and Gender Information Value Date Recorded Sex Assigned at Not on file Gender Identity Not on file Sexual Orientation Not on file documented as of this encounter Miscellaneous Notes * Telephone Encounter - Mai Larson - 06/09/2022 10:01 AM EST Cookie Salgado [id number] Diagnosis/Indication: cirrhosis screen for varices, screening colonoscopy [...] Upper Endoscopy & Colonoscopy before? Yes: Date [facility], 5.5 years ago, doesn't remember what [...] your procedure. Who will likely be your milk truck driver for the procedure? *Please Verify [...] on filedocumented in this encounter Care Teams Environmental Scientist Relationship Specialty Start Date End Date Nicolasa Prince APRN [address] [place] [address] PCP - General Family Medicine 01/08/21 documented as of this encounter
--- OUTSIDE RECORDS SUMMARY | 2024-03-31 00:09 | XMS_ITS | Encounter Summary ---
Author Organization [facility] Address [facility] [place] [address] Care Team Providers Care Third Helper Name Role Phone Nicolasa Prince APRN Primary Care Provider +1- [phone] Encounter Details Date Type Department Care Team (Latest Contact Info) Description 08/17/2022 10:14 AM EDT - 08/17/2022 11:59 PM EDT Hospital [place] [address] Irene Lamar MD [facility] [address] Autoimmune hepatitis; Primary biliary cholangitis; Hepatic cirrhosis, [...] signed by: Kashmir Lindsay MD, [facility] ([phone]), at 08/17/2022 2:04 PM Thank you for letting us participate in the care of this patient. If you are a health care provider and have any questions regarding this report, please contact the number above. For patients who have questions, please contact the health child care teacher that requested your imaging first. ?Kashmir Lindsay, Staff Physician Electronically Signed Final Report ?? 08/17/2022 02:12 pm Narrative 08/17/2022 2:12 PM EDT Abdominal ? (Signed Final 08/17/2022 02:12 pm) PATIENT INFO: ID #: ? [id number] ?: ??[birth year] (71 yrs)(F) Name: ? PREMA SALGADO ?Visit Date: 08/17/2022 10:53 am PERFORMED BY: Attending: ?Neftali LUTHER, Kashmir Resident: ? Milagros LUTHER, James Curtis Performed By: ? Angelina Crystal RDMS Referred By: ?IRENE LAMAR Location: ? [place] [facility] - Hepatology Protocol - Abdominal ?11384 Limited Survey Single Organ or Quadrant - [id number] INDICATIONS: cirrhosis, screen for hcc; assess for [...] 08/17/2022 02:12 pm) PATIENT INFO: ID #: [id number] : 54 (71 yrs)(F) Name: PREMA SALGADO Visit Date: 08/17/2022 10:53 am PERFORMED BY: Attending: Kashmir Lindasy MD Resident: James Linares MD Performed By: Angelina Crystal RDMS Referred By: IRENE LAMAR Location: [place] SERVICE(S) PROVIDED: [facility] - Hepatology Protocol - Abdominal 63624 Limited Survey Single Organ or Quadrant - [id number] INDICATIONS: cirrhosis, screen for hcc; assess for [...] signed by: Kashmir Lindsay MD, [facility] ([phone]), at 08/17/2022 2:04 PM Thank you for letting us participate in the care of this patient. If you are a health care provider and have any questions regarding this report, please contact the number above. For patients who have questions, please contact the health child care teacher that requested your imaging first. Kashmir Lindsay, Staff Physician Electronically Signed Final Report 08/17/2022 02:12 pm Irene Lamar MD IMG US GEN ORDERABLE S documented in this encounter Visit Diagnoses Diagnosis Autoimmune hepatitis Primary biliary cholangitis Hepatic cirrhosis, unspecified hepatic cirrhosis type, unspecified whether ascites present documented in this encounter Care Teams Third Helper Relationship Specialty Start Date End Date Nicolasa Prince APRN [address] [place] [address] PCP - General Family Medicine 01/08/21 documented as of this encounter
--- OUTSIDE RECORDS SUMMARY | 2024-03-31 00:09 | XMS_ITS | Encounter Summary ---
Author Organization [facility] [place] [address] Care Team Providers Care Protocol Officer Name Role Phone Nicolasa Prince APRN Primary Care Provider +1- [phone] Encounter Details Date Type Department Care Team (Late st Contact Info) Description 10/29/2021 Orders [place] [address] Irene Lara MD [facility] [place] [address] Type 2 diabetes mellitus with other specified complication, unspecified whether terminal carman insulin use Social History Tobacco Use Types [...] (ABNORMAL) Hemoglobin A1c (02/10/2022 11:06 AM EDT) [facility] Hemoglobin A1c 7.0(H) 4.3 - 5.6 % [facility] [...] Mellitus, Diabetes Care 2013; 36: Suppl. 1, S60-73 Estimated Average Glucose 155 mg/dL [facility] Comment: eAG equivalents for [...] into estimated average glucose values. ??Diabetes Care 2008:31(8):0761-0658. Blood 02/10/2022 11:0 6 AM EDT 02/10/2022 11:10 AM EDT Narrative Resulting Agency Comment Spec In Lab Irene Lara MD CHEMISTRY ORDERABLES [facility] [place] [address] documented in this encounter Visit Diagnoses Diagnosis Type 2 diabetes mellitus with other specified complication, unspecified whether terminal carman insulin use documented in this encounter Care Teams Protocol Officer Relationship Specialty Start Date End Date Nicolasa Prince APRN [address] [place] [address] PCP - General Family Medicine 01/08/21 documented as of this encounter
--- OUTSIDE RECORDS SUMMARY | 2024-03-31 00:09 | XMS_ITS | Encounter Summary ---
Author Organization [facility] [place] [address] Care Team Providers Care Altitude Chamber Technician Name Role Phone Nicolasa Prince APRN Primary Care Provider +1- [phone] Encounter Details Date Type Department Care Team (Late st Contact Info) Description 02/10/2022 11:30 AM EDT Office [place] [address] Irene Lamar MD [facility] [place] [address] Autoimmune hepatitis; Primary biliary cholangitis; Hepatic cirrhosis, [...] PBC/AIH. Her original diagnosis was made in [place] and she was managed by a glass designer at [facility]. Her records were extensively reviewed in [...] for HCC screening, may time this with EGD/Brothers Time spent with patient: 40 min Time spent reviewing records, documentin min Irene Lamar MD Section of Gastroenterology & Hepatology [address] [place] [address] Cc: Nicolasa Prince APRN SURGICAL PATHOLOGY REPORT ? Patient: PREMA SALGADO ?MR #: [id number] ?Submitted by: Elie Moreno MD FINAL DIAGNOSIS [...] the ductules cannot be definitively distinguished from lower sioux bile ducts. ??There is patchy periportal hepatocellular [...] had a prior liver biopsy reviewed at [facility] (see accession number [id number]), although the slides are not available for direct comparison at this time. ??However, based on the microscopic description, it appears that fibrosis may have progressed. documented in this encounter Procedure Notes * Irene Lamar MD - 02/10/2022 11:30 AM EDTAssociated Order(s): FIBROSCAN Procedure(s): FIBROSCAN Pre-Procedure Diagnose(s): Autoimmune hepatitis; Primary biliary cholangitis [facility] Liver Fibrosis Assessment Report Indication: AIH/PBC, assess for portal htn Performed by: HOWARD Rockwell Procedure: Vibration Controlled Transient Elastography (VCTE) or Fibroscan [place] Protocol: Patient's identity, procedure and site were [...] Procedure Name Priority Date/Time Associated Diagnosis Comments [id number] Routine 02/10/2022 11:30 AM EDT Autoimmune hepatitis [...] signed by: Kashmir Lindsay MD, [facility] ([phone]), at 08/17/2022 2:04 PM Thank you for letting us participate in the care of this patient. If you are a health care provider and have any questions regarding this report, please contact the number above. For patients who have questions, please contact the health child care lead teacher that requested your imaging first. ?Kashmir Lindsay, Staff Physician Electronically Signed Final Report ?? 08/17/2022 02:12 pm Narrative 08/17/2022 2:12 PM EDT Abdominal ? (Signed Final 08/17/2022 02:12 pm) PATIENT INFO: ID #: ? [id number] ?: ??[birth year] (71 yrs)(F) Name: ? PREMA SALGADO ?Visit Date: 08/17/2022 10:53 am PERFORMED BY: Attending: ?Neftali LUTHER, Kashmir Resident: ? Milagros LUTHER, James Curtis Performed By: ? Angelina Crystal RDMS Referred By: ?IRENE LAMAR Location: ? [place] SERVICE(S) PROVIDED: [facility] - Hepatology Protocol - Abdominal ?56782 Limited Survey Single Organ or Quadrant - [id number] INDICATIONS: cirrhosis, screen for hcc; assess for [...] 08/17/2022 02:12 pm) PATIENT INFO: ID #: [id number] : [birth year] (71 yrs)(F) Name: PREMA SALGADO Visit Date: 08/17/2022 10:53 am PERFORMED BY: Attending: Kashmir Lindsay MD Resident: James Linares MD Performed By: Angelina Crystal RDMS Referred By: IRENE LAMAR Location: [place] SERVICE(S) [facility] - Hepatology Protocol - Abdominal 88086 Limited Survey Single Organ or Quadrant - [id number] INDICATIONS: cirrhosis, screen for hcc; assess for [...] questions, please contact the health child care lead teacher that requested your imaging first. Kashmir Lindsay, Staff Physician Electronically Signed Final Report 08/17/2022 02:12 pm Irene Lamar MD IMG US GEN ORDERABLE S * [id number] (02/10/2022 11:30 AM EDT) Narrative Irene Lamar MD - 02/10/2022 11:30 AM EDT Irene Lamar MD ? 02/11/2022 ??8:29 AM [facility] Liver Fibrosis Assessment Report Indication: ??AIH/PBC, assess for portal htn Performed by: ??HOWARD Rockwell Procedure: Vibration Controlled Transient Elastography (VCTE) or Fibroscan [place] Protocol: Patient's identity, procedure and site were [...] present documented in this encounter Care Teams Altitude Chamber Technician Relationship Specialty Start Date End Date Nicolasa Prince APRN [address] [place] [address] PCP - General Family Medicine 01/08/21 documented as of this encounter
--- OUTSIDE RECORDS SUMMARY | 2024-03-31 00:09 | XMS_ITS | Encounter Summary ---
[place] [address] Care Team Providers Care Engineer Conductor Name Role Phone Nicolasa Prince YULIA Primary Care Provider +1- [phone] Encounter Details Date Type Department Care Team (Latest Contact Info) Description 07/22/2021 11:35 AM EDT Laboratory Appointment Lab [address] [place] [id number] Primary biliary cholangitis Social History Tobacco Use [...] Hemoglobin A1c 9.4(H) 4.3 - 5.6 % [facility] [...] Mellitus, Diabetes Care 2013; 36: Suppl. 1, M47-89 Estimated Average Glucose 222 mg/dL [facility] Comment: eAG [...] into estimated average glucose values. ??Diabetes Care 2008:31(8):9177-1786. Blood Venous Draw / Unknown 07/22/2021 11:40 AM EDT 07/22/2021 2:17 PM EDT Narrative Resulting Agency Comment Spec In Lab Irene Lara MD CHEMISTRY ORDERABLES Performing Organization Address City/State/[facility] Co de Phone Number [facility] [place] [address] * Differential, Automated (07/22/2021 11:40 AM EDT) Neutrophil % 67.4 % [facility] Neutrophil Absolute 3.18 1.70 - 6.10 x10(3)/[facility] LABORATORY Lymph % 22.0 % [facility] Lymphocytes Abs 1.0 0.9 - 3.2 x10(3)/[facility] LABORATORY Monocyte % 8.7 % [facility] Monocyte Abs 0.4 0.3 - 0.9 x10(3)/[facility] LABORATORY Eos % 1.3 % [facility] Eosinophils Abs 0.1 0.0 - 0.4 x10(3)/[facility] LABORATORY Basophil % 0.4 % [facility] Baso Absolute 0.0 0.0 - 0.1 x10(3)/[facility] LABORATORY Immature Gran % 0.20 % [facility] Comment: Immature granulocytes(IG's)percentage and absolute count will include metamyelocytes, myelocytes, and promyelocytes. Blood smears from CBCs yielding IG's will be scanned manually for concordance. If this scan disagrees with the automated IG or if promyelocytes are noted, a manual differential will be performed. Immature Gran Absolute 0.01 0.00 - 0.04 x10(3)/[facility] LABORATORY Blood 07/22/2021 11:4 0 AM EDT 07/22/2021 11:55 AM EDT Narrative Resulting Agency Comment Spec In Lab Irene Lara MD HEMATOLOGY ORDERABLE S [facility] [place] [address] * (ABNORMAL) Hemogram (07/22/2021 11:40 AM EDT) White Blood Cell 4.7 4.0 - 9.5 x10(3)/mc L [facility] Red Blood Cell 5.44(H) 4.00 - 5.21 x10(6)/mc L [facility] Hemoglobin 16.8(H) 11.7 - 15.5 g/dL [facility] Hematocrit 49.7(H) 35.7 - 45.8 % [facility] Mean Cell Volume 91.4 82.6 - 94.4 fL [facility] Mean Cell Hemoglobin 30.9 27.1 - 32.0 pg [facility] Mean Cell Hemoglobin Concentration 33.8 31.7 - 35.0 g/dL [facility] Platelet 141(L) 145 - 357 x10(3)/mc L [facility] RDW Standard Deviation 45.5 37.0 - 46.0 fL [facility] RDW coefficient of variation 13.5 11.5 - 14.1 % [facility] Mean Platelet Volume 10.8 7.6 - 12.9 fL [facility] NRBC% auto 0.0 % [facility] NRBC Absolute 0.000 0.000 - 0.000 x10(3)/mc L [facility] Blood 07/22/2021 11:4 0 AM EDT 07/22/2021 11:55 AM EDT Narrative Resulting Agency Comment Spec In Lab Irene Lara MD HEMATOLOGY ORDERABLE S [facility] [place] [address] * (ABNORMAL) Comprehensive metabolic panel (non-fasting) (07/22/2021 11:40 AM EDT) Glucose 156 65 - 199 mg/dL [facility] Comment:Diabetes: >=200 mg/d L plus symptoms Blood Urea Nitrogen 23(H) 8 - 18 mg/dL [facility] Creatinine 0.88 0.70 - 1.20 mg/dL [facility] Sodium 135 135 - 145 mmol/L [facility] Potassium 4.4 3.5 - 5.0 mmol/L [facility] Comment: Please note: ??Patients with WBC >100,000 may have falsely elevated Potassium levels. ??For accurate Potassium quantification in these patients send serum separator tube (gold top) for subsequent determinations. ??Contact the Clinical Chemistry Laboratory if there are any questions. Chloride 104 98 - 107 mmol/L [facility] Carbon Dioxide 18(L) 22 - 31 mmol/L [facility] Anion Gap 13 5 - 15 mmol/L [facility] Calcium 10.0 8.5 - 10.5 mg/dL [facility] Protein, Total 7.8 6.1 - 8.0 g/dL [facility] Albumin 4.5 3.2 - 5.2 g/dL [facility] Aspartate Aminotransferase 29 0 - 30 unit/L [facility] Alanine Aminotransferase 26 0 - 30 unit/L [facility] Alkaline Phosphatase 89 35 - 105 unit/L [facility] Bilirubin, Total 0.7 0.2 - 1.3 mg/dL [facility] Est Glomerular Filtration Rate 68 >=60 mL/min/1. 73 m?? [facility] [...] Lara MD CHEMISTRY ORDERABLES Performing Organization Address [facility]/ZIP Co de Phone Number [facility] [place] [address] * AFP tumor marker (07/22/2021 11:40 AM EDT) Alpha Fetoprotein 3.4 <=8.3 ng/mL [facility] Blood 07/22/2021 11:4 0 AM EDT 07/22/2021 11:55 AM EDT Narrative Resulting Agency Comment Spec In Lab Irene Lara MD CHEMISTRY ORDERABLES Performing Organization Address [facility] Co de Phone Number [facility] [place] [address] * Prothrombin Time (07/22/2021 11:40 AM EDT) Prothrombin Time 11.6 9.4 - 12.5 sec [facility] International Normalization Ratio 1.0 [facility] Comment: An INR <2.0 [...] MD HEMATOLOGY ORDERABLE S Performing Organization Address [facility] Co de Phone Number [facility] [place] [address] documented in this encounter Visit Diagnoses Diagnosis Primary biliary cholangitis documented in this encounter Care Teams Engineer Conductor Relationship Specialty Start Date End Date Nicolasa Prince APRN [address] [place] [address] PCP - General Family Medicine 01/08/21 documented as of this encounter
--- OUTSIDE RECORDS SUMMARY | 2024-03-31 00:09 | XMS_ITS | Encounter Summary ---
[place] [address] Care Team Providers Care Insurance Office Supervisor Name Role Phone Suresh Nicolasa Giles APRN Primary Care Provider +1- [phone] Reason for Referral * Diagnostic Test (Routine) - Closed Specialty Diagnoses / Procedures Referred By Contac t Referred To Contact Radiology Diagnoses Primary biliary cholangitis Procedures MRI Abdomen wwo Contrast (Generic) Harmony Andrade FURNITURE ASSEMBLY SUPERVISOR [facility] [place] [address] [place] [address] Referral ID Status Reason Start Date Expiration Date V isits Requested Visits Authorized [id number] Closed Specialty Service Requested 02/19/2021 08/20/2022 1 1 Reason for Visit * Diagnostic Test (Routine) - Closed Specialty Diagnoses / Procedures Referred By Contac t Referred To Contact Radiology Diagnoses Primary biliary cholangitis Procedures MRI Abdomen wwo Contrast (Generic) Harmony Andrade [facility] [place] [address] [place] [address] Referral ID Status Reason Start Date Expiration Date V isits Requested Visits Authorized [id number] Closed Specialty Service Requested 02/19/2021 08/20/2022 1 1 Encounter Details Date Type Department Care Team (Latest Contact Info) Description 07/22/2021 9:43 AM EDT - 07/22/2021 11:59 PM EDT Hospital [place] [address] Harmony Andrade APRN [facility] [place] [address] Primary biliary cholangitis Discharge Disposition: Home Social [...] have questions please contact the health director of managed care that requested your imaging first. ? Narrative [...] who have questions please contactthe health director of managed care that requested your imaging first. Harmony Andrade APRN [facility] MRI ORDERABLES documented in this encounter Visit [...] mLs documented in this encounter Care Teams Insurance Office Supervisor Relationship Specialty Start Date End Date Nicolasa Prince APRN [address] [place] [address] PCP - General Family Medicine 01/08/21 documented as of this encounter
--- OUTSIDE RECORDS SUMMARY | 2024-03-31 00:09 | XMS_ITS | Encounter Summary ---
Author Organization [facility] Address [facility] [place] [address] Care Team Providers Care Neuropsychiatric Aide Name Role Phone Nicolasa Prince YULIA Primary Care Provider +1- [phone] Reason for Visit * Auth/Cert (Routine) Specialty [...] GI ENDOSCOPY COLONOSCOPY, DIAGNOSTIC Elin Carlson MD [facility] [place] [place] [address] [facility] Referral ID Status Reason Start Date Expiration Date Visits Re quested Visits Authorized [id number] 1 1 Encounter Details Date Type Department Care Team (Latest Contact Info) Description 08/07/2022 12:50 PM EDT - 08/07/2022 4:14 PM EDT Hospital En[place] [address] Elin Carlson MD [facility] [place] [address] Discharge Disposition: Home Social History Tobacco Use [...] the day after the test, use an wmsd-zgt-iwuhgag spray or lozenges to numbyour throat. Warm [...] occurs, please contact your doctor. Please call [phone] before 8pm Mon-Fri with problems, questions, or concerns. If you call after 8pm or on weekends, call the Hospital at [phone] and ask for the Back Wedger environmental planning engineer and the novelty twister operator will contact that person for you. [...] more? You can view health information on [employer], your personal patient account. Log in or sign up today. Content Version: 12.2 ?? 2595-4025 [employer]. Care instructions adapted under license by [facility]. If you have questions about a medical condition or this instruction, always ask your healthcare professional. [employer] disclaims any warranty or liability for your [...] Diagnosis Code ??? Atherosclerotic heart disease of [place] coronary artery without angina pectoris I25.10 EXAM: [...] Colonoscopy, Flexible W Control Bleeding, Any Method (19686) 08/07/2022 2:21 PM EDT Hepatic cirrhosis, unspecified hepatic cirrhosis type, unspecified whether ascites present Screening for colon cancer Colonoscpy, Flex, W/Dir Submuc Inject (87147) 08/07/2022 2:21 PM EDT Hepatic cirrhosis, unspecified hepatic cirrhosis type, unspecified whether ascites present Screening for colon cancer Colonoscopy, Robert Ortiz, Gauri (08046) 08/07/2022 2:21 PM EDT Hepatic cirrhosis, unspecified hepatic cirrhosis type, unspecified whether ascites present Screening for colon cancer Upper GI Endoscopy, Diagnostic (57031) 08/07/2022 2:21 PM EDT Hepatic cirrhosis, unspecified hepatic cirrhosis type, unspecified whether ascites present Screening for colon cancer UPPER GI ENDOSCOPY Routine 08/07/2022 2: 10 PM EDT COLONOSCOPY Routine 08/07/2022 2:10 PM EDT documented in this encounter Results * Specimen to Pathology (08/07/2022 3:25 PM EDT) AP Specimen 08/07/2022 3:25 PM EDT 08/07/2022 3:25 PM EDT Narrative [facility] - 08/07/2022 3:25 PM EDT Specimen requisition ordered. ??Separate Pathology report to follow Elin Carlson MD PATHOLOGY/CYTOLOGY O MEENU Performing Organization Address [facility] [place] [address] * Specimen to Pathology (08/07/2022 3:25 PM EDT) AP Specimen 08/07/2022 3:25 PM EDT 08/07/2022 3:25 PM EDT Narrative [facility] - 08/07/2022 3:25 PM EDT Specimen requisition ordered. ??Separate Pathology report to follow Elin Carlson MD PATHOLOGY/CYTOLOGY O RDMILLIE Performing Organization Address City/[facility]/[place] [address] * Surgical Pathology Report (08/07/2022 2:57 PM EDT) Final Diagnosis [id number] ? Location: 4T; EA12; A The signing [...] Arpit Verified: ??08/26/2022 16:10 ??Pathologist Performed at: ??-[facility] Dept. of Pathology, [place] [address] Lab Pack Chemist: Stefan Min MD, FCAP, ??CLIA Certificate: [id number] SPECIMEN(S) SUBMITTED A - transverse colon polyp, [...] 4:10 PM EDT [facility] GI Biopsy 08/07/2022 2:57 PM EDT 08/07/2022 2:57 PM EDT GI Biopsy 08/07/2022 2:57 PM EDT 08/07/2022 2:57 PM EDT Elin Carlson MD PATHOLOGY/CYTOLOGY O MEENU Performing Organization Address [facility]/State/ZIP Co de Phone Number [facility] [place] [address] [facility] [place] [address] * UPPER GI ENDOSCOPY (08/07/2022 2:10 PM EDT) Pathologist [facility] UPPER GI ENDOSCOPY [facility] Endoscopy Procedure Date: 08/07/2022 2:10 PM ? Patient Name: Cookie Salgado ? N: [id number] ? Date of : 1950 ? Age: 71 ? Order #: [id number] ? Instrument Name: EG-760R- [id number] ? Procedure: ? Upper GI endoscopy Indications: [...] * COLONOSCOPY (08/07/2022 2:10 PM EDT) COLONOSCOPY [facility] Endoscopy Procedure Date: 08/07/2022 2:10 PM ? Patient Name: Cookie Salgado ? N: [id number] ? Date of : 1950 ? Age: 71 ? Order #: [id number] ? Instrument Name: [id number]- [id number] ? Procedure: ? Colonoscopy Indications: ? Screening [...] ? was evaluated using the BBPS ? ([place] Bowel Preparation Scale) ? with scores of: [...] Procedure Code(s): ? --- Professional --- ? 54127, Colonoscopy, flexible; with ? endoscopic mucosal resection ? 33817, 59, Colonoscopy, flexible; ? with removal of tumor(s), polyp(s), ? or other lesion(s) by snare ? technique CPT copyright 2020 [employer]. All rights reserved. The codes documented in this report are preliminary and upon carpenter supervisor review may be revised to meet current [...] RN) documented in this encounter Care Teams Neuropsychiatric Aide Relationship Specialty Start Date End Date Nicolasa Prince, [address] [place] [address] PCP - General Family Medicine 01/08/21 documented as of this encounter
--- OUTSIDE RECORDS SUMMARY | 2024-03-31 00:09 | XMS_ITS | Encounter Summary ---
Author Organization [facility] [place] [address] Care Team Providers Care Vice Chancellor Name Role Phone Nicolasa Prince APRN Primary Care Provider +1- [phone] Reason for Visit * Reason Comments Medication Refill Encounter Details Date Type Department Care Team (Late st Contact Info) Description 12/14/2022 Refill [place] [address] Irene Lara MD [facility] [place] [address] Autoimmune hepatitis Social History Tobacco Use Types [...] hepatitis documented in this encounter Care Teams Vice Chancellor Relationship Specialty Start Date End Date Nicolasa Prince APRN [address] [place] [address] PCP - General Family Medicine 01/08/21 documented as of this encounter
== END 2024-03-31 00:26 ==
LOC: DI 00:06
PROVIDERS: PCP Nurse Practitioner Family; Visit Provider Internal Medicine Gastroenterology
DX: K74.3 Primary biliary cirrhosis (principal)
CPT/HCPCS: 76705

== ENCOUNTER 2024-03-31 01:33 | Outpatient (CLI) | payer MEDICARE, SELFPAY ==
--- OUTSIDE RECORDS SUMMARY | 2024-03-31 01:34 | XMS_ITS | Encounter Summary ---
Author Organization [facility] [place] [address] Care Team Providers Care Ship Unloader Name Role Phone Nicolasa Prince APRN Primary Care Provider +1- [phone] Encounter Details Date Type Department Care Team (Late st Contact Info) Description 12/13/2023 [place] [address] Jasmin Porras Social History Tobacco Use Types [...] on filedocumented in this encounter Care Teams Ship Unloader Relationship Specialty Start Date End Date Nicolasa Prince APRN [address] [place] [address] PCP - General Family Medicine 01/08/21 documented as of this encounter
--- OUTSIDE RECORDS SUMMARY | 2024-03-31 01:34 | XMS_ITS | Encounter Summary ---
Author Organization [facility] Address [address] [place] [address] Care Team Providers Care Cord Tire Builder Name Role Phone Unavailable Primary Care Provider Unavailabl e Encounter Details Date Type Department Care Team (Late st Contact Info) Description 03/01/2023 Lab Requisition [facility] Pathology & Laboratory Medicine - [address] [address] Outr Resulting Lab, Provider Social History Tobacco [...] & BLOOD GA S ORDERABLES Final Result [facility] [address] [place] [address] documented in this encounter Visit Diagnoses Not on filedocumented in this encounter
--- OUTSIDE RECORDS SUMMARY | 2024-03-31 01:34 | XMS_ITS | Encounter Summary ---
Author Organization [facility] [place] [address] Care Team Providers Care Development Editor Name Role Phone Nicolasa Prince APRN Primary Care Provider +1- [phone] Encounter Details Date Type Department Care Team (Late st Contact Info) Description 03/09/2023 External Results [facility] [place] [address] Isabela March RN Social History Tobacco Use [...] on filedocumented in this encounter Care Teams Development Editor Relationship Specialty Start Date End Date Nicolasa Prince APRN [address] [place] [address] PCP - General Family Medicine 01/08/21 documented as of this encounter
--- OUTSIDE RECORDS SUMMARY | 2024-03-31 01:34 | XMS_ITS | Clinical Summary ---
Author Organization [facility] Address [facility] [place] [address] Care Team Providers Care Advertiser Name Role Phone Nicolasa Prince YULIA Primary Care Provider +1- [phone] Allergies Active Allergy Reactions Criticality Noted Date Comments Amoxicillin 01/22/2021 Ciprofloxacin 01/22/2021 Egg Derived Other (See Comments),Anaphylaxi s,Hives,Itching High 02/17/2013 Also Egg Metformin Nausea And Vomiting Low 10/29/2020 Mold Other (See Comments) 01/22/2021 Also SMUT Lbntfqk-Awe-Qwo Reductase Inhibitors Low 10/25/2020 Other reaction(s): Myalgia/Myositis/A [...] Diagnosed Date 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 ? Narrative [...] patients who have questions please contactthe health complex care nurse practitioner that requested your imaging first. Nicolasa Prince APRN [facility] [place] ORDERABLES * (ABNORMAL) Comprehensive metabolic panel (non-fasting) (03/30/2023 10:23 AM EST) Glucose 110 65 - 199 mg/dL [facility] Comment:Diabetes: >=200 mg/d L plus symptoms Blood Urea Nitrogen 20(H) 8 - 18 mg/dL [facility] Creatinine 0.82 0.70 - 1.20 mg/dL [facility] Sodium 140 135 - 145 mmol/L [facility] Potassium 4.1 3.5 - 5.0 mmol/L [facility] Comment: Please note: ??Patients with WBC >100,000 may have falsely elevated Potassium levels. ??For accurate Potassium quantification in these patients send serum separator tube (gold top) for subsequent determinations. ??Contact the Clinical Chemistry Laboratory if there are any questions. Chloride 105 98 - 107 mmol/L [facility] Carbon Dioxide 22 22 - 31 mmol/L [facility] Anion Gap 13 5 - 15 mmol/L [facility] Calcium 9.8 8.5 - 10.5 mg/dL [facility] Protein, Total 7.2 6.1 - 8.0 g/dL [facility] Albumin 4.4 3.2 - 5.2 g/dL [facility] Aspartate Aminotransferase 31(H) 0 - 30 unit/L [facility] Alanine Aminotransferase 24 0 - 30 unit/L [facility] Alkaline Phosphatase 64 35 - 105 unit/L [facility] Bilirubin, Total 0.7 0.2 - 1.3 mg/dL [facility] Est Glomerular Filtration Rate 77 >=60 mL/min/1. 73 m?? [facility] Comment: This patient's estimated GFR was [...] In Lab Irene Lara MD CHEMISTRY ORDERABLES [facility] [address] * COLONOSCOPY (02/19/2023 1:47 PM EDT) COLONOSCOPY [facility] Endoscopy Procedure Date: 02/19/2023 1:47 PM ? Patient Name: Cookie Salgado ? N: [id number] ? Date of : 1950 ? Age: 72 ? Order #: [id number] ? Instrument Name: [id number] ? Procedure: ? Colonoscopy Indications: ? Follow-up [...] ? was evaluated using the BBPS ? (Conroy Bowel Preparation Scale) ? with scores of: [...] Procedure Code(s): ? --- Professional --- ? 96750, Colonoscopy, flexible; with ? removal of tumor(s), polyp(s), or ? other lesion(s) by snare technique CPT copyright 2022 [employer]. All rights reserved. The codes documented in this report are preliminary and upon copper flotation operator review may be revised to meet current compliance requirements. Attending Participation: ? I personally performed the entire procedure. ? Elin Carlson MD _ Elin Carlson MD 02/19/2023 2:36:53 PM This report has been signed electronically. Number of Addenda: 0 Note Initiated On: 02/19/2023 1:47 PM PROVATION 02/19/2023 1:47 PM EDT Nicolasa Prince TRAFFIC DIVISION COMMANDING OFFICER GENERAL SURGICAL O RDERABLES PROVATION from Last 3 Months or Most Recently Relevant to Health Maintenance Care Teams Advertiser Relationship Specialty Start Date End Date Nicolasa Prince APRN [address] [place] [address] PCP - General Family Medicine 01/08/21
--- OUTSIDE RECORDS SUMMARY | 2024-03-31 01:34 | XMS_ITS | Encounter Summary ---
Author Organization [facility] Address [facility] [place] [address] Care Team Providers Care Lining Presser Name Role Phone Nicolasa Prince YULIA Primary Care Provider +1- [phone] Encounter Details Date Type Department Care Team (Latest Contact Info) Description 03/30/2023 9:10 AM EST - 03/30/2023 11:59 PM [facility] Hospital [place] [phone] Carolynn Lamar MD [facility] [place] [address] Primary biliary cholangitis; Hepatic cirrhosis, unspecified hepatic [...] who have questions, please contact the health medication care manager that requested your imaging first. ? Ke Jay, Staff Physician Electronically Signed Final Report ?? 03/30/2023 12:27 pm Narrative 03/30/2023 12:28 PM EST Abdominal ? (Signed Final 03/30/2023 12:27 pm) PATIENT INFO: ID #: ? [id number] ?: ??[birth year] (72 yrs)(F) Name: ? PREMA SALGADO ?Visit Date: 03/30/2023 09:52 am PERFORMED BY: Attending: ?Pierre LUTHER, Ke Conklin Resident: ? Joseph LUTHER, Ada Barrow Performed By: ? Elba Milian RDMS Referred By: ?CAROLYNN LAMAR Location: ? [place] [facility] Protocol - Abdominal ?92349 Limited Survey Single Organ or Quadrant - [id number] INDICATIONS: cirrhosis, screen for hcc COMPARISON: US: [...] 03/30/2023 12:27 pm) PATIENT INFO: ID #: [id number] : [birth year] (72 yrs)(F) Name: PREMA SALGADO Visit Date: 03/30/2023 09:52 am PERFORMED BY: Attending: Ke Jay MD Resident: Ada Ruiz MD Performed By: Elba Milian RDMS Referred By: CAROLYNN LAMAR Location: [place] SERVICE(S) PROVIDED: [facility] - Hepatology Protocol - Abdominal 18093 Limited Survey Single Organ or Quadrant - [id number] INDICATIONS: cirrhosis, screen for hcc COMPARISON: US: [...] who have questions, please contact the health medication care manager that requested your imaging first. Ke Jay, Staff Physician Electronically Signed Final Report 03/30/2023 12:27 pm Carolynn Lamar MD IMG GEN ORDERABLE S documented in this encounter Visit Diagnoses Diagnosis Primary biliary cholangitis Hepatic cirrhosis, unspecified hepatic cirrhosis type, unspecified whether ascites present documented in this encounter Care Teams Lining Presser Relationship Specialty Start Date End Date Nicolasa Prince APRN [address] [place] [address] PCP - General Family Medicine 01/08/21 documented as of this encounter
--- OUTSIDE RECORDS SUMMARY | 2024-03-31 01:34 | XMS_ITS | Encounter Summary ---
Author Organization [facility] [place] [address] Care Team Providers Care Hospice Nurse Name Role Phone Nicolasa Prince APRN Primary Care Provider +1- [phone] Encounter Details Date Type Department Care Team (Late st Contact Info) Description 03/30/2023 11:30 AM EST [place] [address] Carolynn Lamar MD [facility] [place] [address] Biliary cirrhosis Social History Tobacco Use Types [...] 2 fibrosis at that time. AMA negative, UHGO 1:640 - Treated with Ursodiol initally - [...] [place] and she was managed by a parboiler at [facility]. Her records were extensively reviewed [...] normal since approximately 2016. She moved to [place] in 2019.. Living with her two brothers. [...] Vitals: 03/30/23 1122 BP: 129/62 BP Location ([facility]): Right arm Patient Position: [...] Lamar MD Section of Gastroenterology & Hepatology [address] [place], [place] [address] Cc: Nicolasa Prince APRN SURGICAL PATHOLOGY REPORT Patient: PREMA SALGADO MR #: [id number] Submitted by: Elie Moreno MD FINAL DIAGNOSIS [...] the ductules cannot be definitively distinguished from [place] bile ducts. There is patchy periportal hepatocellular [...] prior liver biopsy reviewed at [facility] (see accession number [id number]), although the slides are not available for direct comparison at this time. However, based on the microscopic description, it appears that fibrosis may have progressed. documented in this encounter Plan of Treatment Not on file documented as of this encounter Results * US Abdomen Limited Hepatology Protocol (09/28/2023 10:54 AM EDT) WORKSTATION ID [id number] RAD Anatomical Region Laterality Modality Abdomen [...] who have questions, please contact the health intensive care unit nurse that requested your imaging first. ?Fiordaliza Fabian, [facility] Clinical Team Lead Electronically Signed Final Report ?? 09/28/2023 11:41 am Narrative 09/28/2023 11:42 AM EDT Abdominal ? (Signed Final 09/28/2023 11:41 am) PATIENT INFO: ID #: ? [id number] ?: ??[birth year] (72 yrs)(F) Name: ? PREMA SALGADO ?Visit Date: 09/28/2023 10:34 am PERFORMED BY: Attending: ?Caren LUTHER, Fiordaliza Prado Resident: ? Madhavi Thomas MD Performed By: ? Joanna Bronson RDMS Referred By: ?CAROLYNN LAMAR Location: ? [place] SERVICE(S) PROVIDED: [facility] - Hepatology Protocol - Abdominal ?91366 Limited Survey Single Organ or Quadrant - [id number] INDICATIONS: cirrhosis, screen for hcc COMPARISON: US [...] 09/28/2023 11:41 am) PATIENT INFO: ID #: [id number] : 54 (72 yrs)(F) Name: PREMA SALGADO Visit Date: 09/28/2023 10:34 am PERFORMED BY: Attending: Fiordaliza Fabian MD Resident: Madhavi Thomas MD Performed By: Joanna Bronson RDMS Referred By: CAROLYNN LAMAR Location: [place] SERVICE(S) PROVIDED: [facility] - Hepatology Protocol - Abdominal 38893 Limited Survey Single Organ or Quadrant - [id number] INDICATIONS: cirrhosis, screen for hcc COMPARISON: US [...] who have questions, please contact the health intensive care unit nurse that requested your imaging first. Fiordaliza Fabian E Clinical Team Lead Electronically Signed Final Report 09/28/2023 11:41 am Carolynn Lamar MD IMG US GEN ORDERABLE S documented in this encounter Visit Diagnoses Diagnosis Biliary cirrhosis Biliary cirrhosis documented in this encounter Care Teams Hospice Nurse Relationship Specialty Start Date End Date Nicolasa Prince APRN [address] [address] PCP - General Family Medicine 01/08/21 documented as of this encounter
--- OUTSIDE RECORDS SUMMARY | 2024-03-31 01:34 | XMS_ITS | Encounter Summary ---
Author Organization [facility] [place] [address] Care Team Providers Care Quill Stripper Name Role Phone Nicolasa Prince APRN Primary Care Provider +1- [phone] Encounter Details Date Type Department Care Team (Latest Contact Info) Description 03/30/2023 10:15 AM EST Laboratory Appointment Lab [address] [place] [phone] Primary biliary cholangitis; Hepatic cirrhosis, unspecified hepatic [...] 10:23 AM EST) Neutrophil % 64.6 % [facility] Neutrophil Absolute 2.35 1.70 - 6.10 x10(3)/mc L [facility] Lymph % 22.9 % [facility] Lymphocytes Abs 0.8(L) 0.9 - 3.2 x10(3)/mc L [facility] Monocyte % 10.5 % [facility] Monocyte Abs 0.4 0.3 - 0.9 x10(3)/mc L [facility] Eos % 1.1 % [facility] Eosinophils Abs 0.0 0.0 - 0.4 x10(3)/mc L [facility] Basophil % 0.6 % [facility] Baso Absolute 0.0 0.0 - 0.1 x10(3)/mc L [facility] Immature Gran % 0.30 % [facility] Comment: Immature granulocytes(IG's)percentage and absolute count will include metamyelocytes, myelocytes, and promyelocytes. Blood smears from CBCs yielding IG's will be scanned manually for concordance. If this scan disagrees with the automated IG or if promyelocytes are noted, a manual differential will be performed. Immature Gran Absolute 0.01 0.00 - 0.04 x10(3)/mc L [facility] Blood 03/30/2023 10:2 3 AM EST 03/30/2023 10:31 AM EST Narrative Resulting Agency Comment Spec In Lab Irene Lara MD HEMATOLOGY ORDERABLE S [facility] [place] [address] * (ABNORMAL) Hemogram (03/30/2023 10:23 AM EST) White Blood Cell 3.6(L) 4.0 - 9.5 x10(3)/mc L [facility] Red Blood Cell 5.01 4.00 - 5.21 x10(6)/mc L [facility] Hemoglobin 15.8(H) 11.7 - 15.5 g/dL [facility] Hematocrit 46.6(H) 35.7 - 45.8 % [facility] Mean Cell Volume 93.0 82.6 - 94.4 fL [facility] Mean Cell Hemoglobin 31.5 27.1 - 32.0 pg [facility] Mean Cell Hemoglobin Concentration 33.9 31.7 - 35.0 g/dL [facility] Platelet 131(L) 145 - 357 x10(3)/mc L [facility] RDW Standard Deviation 44.9 37.0 - 46.0 fL [facility] RDW coefficient of variation 13.2 11.5 - 14.1 % [facility] Mean Platelet Volume 10.4 7.6 - 12.9 fL [facility] NRBC% auto 0.0 % [facility] NRBC Absolute 0.000 0.000 - 0.000 x10(3)/ L [facility] Blood 03/30/2023 10:2 3 AM EST 03/30/2023 10:31 AM EST Narrative Resulting Agency Comment Spec In Lab Irene Lara MD HEMATOLOGY ORDERABLE S [facility] [place] [address] * (ABNORMAL) Comprehensive metabolic panel (non-fasting) (03/30/2023 10:23 AM EST) Glucose 110 65 - 199 mg/dL [facility] Comment:Diabetes: >=200 mg/d L plus symptoms Blood Urea Nitrogen 20(H) 8 - 18 mg/dL [facility] Creatinine 0.82 0.70 - 1.20 mg/dL [facility] Sodium 140 135 - 145 mmol/L [facility] Potassium 4.1 3.5 - 5.0 mmol/L [facility] Comment: Please note: ??Patients with WBC >100,000 may have falsely elevated Potassium levels. ??For accurate Potassium quantification in these patients send serum separator tube (gold top) for subsequent determinations. ??Contact the Clinical Chemistry Laboratory if there are any questions. Chloride 105 98 - 107 mmol/L [facility] Carbon Dioxide 22 22 - 31 mmol/L [facility] Anion Gap 13 5 - 15 mmol/L [facility] Calcium 9.8 8.5 - 10.5 mg/dL [facility] Protein, Total 7.2 6.1 - 8.0 g/dL [facility] Albumin 4.4 3.2 - 5.2 g/dL [facility] Aspartate Aminotransferase 31(H) 0 - 30 unit/L [facility] Alanine Aminotransferase 24 0 - 30 unit/L [facility] Alkaline Phosphatase 64 35 - 105 unit/L [facility] Bilirubin, Total 0.7 0.2 - 1.3 mg/dL [facility] Est Glomerular Filtration Rate 77 >=60 mL/min/1. 73 m?? [facility] Comment: This patient's estimated GFR [...] In Lab Irene Lara MD CHEMISTRY ORDERABLES [facility] [place] [address] * Prothrombin Time (03/30/2023 10:23 AM EST) Prothrombin Time 12.0 9.4 - 12.5 sec [facility] International Normalization Ratio 1.1 [facility] Comment: An INR <2.0 indicates [...] MD HEMATOLOGY ORDERABLE S Performing Organization Address City/[facility]/ZIP Co de Phone Number [facility] [place] [address] * AFP tumor marker (03/30/2023 10:23 AM EST) Pathologist [facility] Alpha Fetoprotein 2.8 <=8.3 ng/mL [facility] Comment: This result was generated using a Mendoza Jonathan immunoassay. ??Results obtained from other methods or manufacturers cannot be used interchangeably with this method. Blood 03/30/2023 10:2 3 AM EST 03/30/2023 10:30 AM EST Narrative Resulting Agency Comment Spec In Lab Irene Lara MD CHEMISTRY ORDERABLES Performing Organization Address City/[facility] Co de Phone Number [facility] [place] [address] documented in this encounter Visit Diagnoses Diagnosis Primary biliary cholangitis Hepatic cirrhosis, unspecified hepatic cirrhosis type, unspecified whether ascites present documented in this encounter Care Teams Quill Stripper Relationship Specialty Start Date End Date Nicolasa Prince APRN [address] [place] [address] PCP - General Family Medicine 01/08/21 documented as of this encounter
--- OUTSIDE RECORDS SUMMARY | 2024-03-31 01:34 | XMS_ITS | Encounter Summary ---
Author Organization [facility] [place] [address] Care Team Providers Care Drum Dyeing Machine Operator Name Role Phone Nicolasa Prince APRN Primary Care Provider +1- [phone] Encounter Details Date Type Department Care Team (Late st Contact Info) Description 09/28/2023 1:00 PM EDT Office [place] [phone] Irene Lara MD [facility] [place] [address] Primary biliary cholangitis; Hepatic cirrhosis, unspecified hepatic [...] [place] and she was managed by a fuel assembler at [facility]. Her records were extensively reviewed in [...] normal since approximately 2016. She moved to [place] in 2019.. Living with her two brothers. [...] Vitals: 09/28/23 1310 BP: 118/57 BP Location ([facility]): Right arm Patient Position: [...] screening in six months- will do in [facility], , GIF here in one year Time spent with patient: 25 min Time spent reviewing records, documenting- all today : 8 min Irene Lara MD Section of Gastroenterology & Hepatology [address] [place] [address] Cc: Nicolasa Prince APRN SURGICAL PATHOLOGY REPORT Patient: PREMA SALGADO MR #: [id number] Submitted by: Elie Moreno MD FINAL DIAGNOSIS [...] ductules cannot be definitively distinguished from [place] bile ducts. There is patchy periportal hepatocellular [...] had a prior liver biopsy reviewed at [facility] (see accession number [id number]), although the slides are not available for [...] present documented in this encounter Care Teams Drum Dyeing Machine Operator Relationship Specialty Start Date End Date Nicolasa Prince APRN [address] [place] [address] PCP - General Family Medicine 01/08/21 documented as of this encounter
--- OUTSIDE RECORDS SUMMARY | 2024-03-31 01:34 | XMS_ITS | Encounter Summary ---
[place] [address] Care Team Providers Care Tester Printed Circuit Boards Name Role Phone Nicolasa Prince APRN Primary Care Provider +1- [phone] Reason for Referral * Diagnostic Test (Routine) - Closed Specialty Diagnoses / Procedures Referred By Patricioac t Referred To Contact Radiology Diagnoses Cervical radiculopathy Procedures MRI Cervical Spine wo Contrast (Generic) Nicolasa Prince APRN [address] [place] [address] [place] [address] Referral ID Status Reason Start Date Expiration Date V isits Requested Visits Authorized [id number] Closed Specialty Service Requested 12/09/2023 06/10/2025 1 1 Reason for Visit * Diagnostic Test (Routine) - Closed Specialty Diagnoses / Procedures Referred By Contac t Referred To Contact Radiology Diagnoses Cervical radiculopathy Procedures MRI Cervical Spine wo Contrast (Generic) Nicolasa Prince APRN [address] [place] [address] [place] [address] Referral ID Status Reason Start Date Expiration Date V isits Requested Visits Authorized [id number] Closed Specialty Service Requested 12/09/2023 06/10/2025 1 1 Encounter Details Date Type Department Care Team (Latest Contact Info) Description 12/30/2023 1:43 PM EDT - 12/30/2023 11:59 PM EDT Hospital Encounter MRI [facility] [place] [address] Nicolasa Prince ChanYULIA [address] [place] [address] Cervical radiculopathy Discharge Disposition: Home Social History [...] (Generic) (12/30/2023 2:20 PM EDT) WORKSTATION ID [id number] RAD Anatomical Region Laterality Modality C-spine Magnetic [...] who have questions please contact the health daycare manager that requested your imaging first. ? Electronically signed by: Vineet Ruggiero DO, [facility] ??([phone]), at 12/31/2023 4:30 PM Narrative 12/31/2023 4:30 [...] patients who have questions please contactthe health daycare manager that requested your imaging first. Nicolasa Prince APRN IMG MRI ORDERABLES documented in this encounter Visit Diagnoses Diagnosis Cervical radiculopathy Brachial neuritis or radiculitis nos documented in this encounter Care Teams Tester Printed Circuit Boards Relationship Specialty Start Date End Date Nicolasa Prince APRN [address] [place] [address] PCP - General Family Medicine 01/08/21 documented as of this encounter
--- OUTSIDE RECORDS SUMMARY | 2024-03-31 01:34 | XMS_ITS | Encounter Summary ---
Author Organization [place] [address] Care Team Providers Care Senior Java Web Developer Name Role Phone Nicolasa Prince APRN Primary Care Provider +1- [phone] Reason for Visit * Reason Onset Date Comments Appointment 06/24/2023 US/Abdomen Encounter Details Date Type Department Care Team (Late st Contact Info) Description 06/24/2023 [place] [address] Gisele Jim RN Appointment (US/Abdomen) [...] filedocumented in this encounter Care Teams Senior Java Web Developer Relationship Specialty Start Date End Date Nicolasa Prince APRN [address] [address] PCP - General Family Medicine 01/08/21 documented as of this encounter
--- OUTSIDE RECORDS SUMMARY | 2024-03-31 01:34 | XMS_ITS | Encounter Summary ---
[facility] Organization [facility] [place] [address] Care Team Providers Care Fourth Grade Teacher Name Role Phone Nicolsaa Prince APRN Primary Care Provider +1- [phone] Encounter Details Date Type Department Care Team [...] on filedocumented in this encounter Care Teams Fourth Grade Teacher Relationship Specialty Start Date End Date Nicolasa Prince APRN [address] [place] [address] PCP - General Family Medicine 01/08/21 documented as of this encounter
--- OUTSIDE RECORDS SUMMARY | 2024-03-31 01:34 | XMS_ITS | Encounter Summary ---
Author Organization [facility] Address [address] [place] [address] Care Team Providers Care Envelope Maker Name Role Phone Unavailable Primary Care Provider Unavailabl e Encounter Details Date Type Department Care Team (Late st Contact Info) Description 11/17/2023 Lab Requisition [facility] Pathology & [place] [address] Outr Resulting Lab, Provider Social History Tobacco [...] Lyme Ab Negative Negative 11/18/2023 11:08 EDT [facility] Blood VENOUS BLOOD / Unknown 11/16/2023 9:50 EDT 11/17/2023 18:10 EDT us Provider Outr Resulting Lab IMMUNOLOGY AND SEROL OGY ORDERABLES Final Result [facility] [address] [place], [place] [address] documented in this encounter Visit Diagnoses Not on filedocumented in this encounter
--- OUTSIDE RECORDS SUMMARY | 2024-03-31 01:34 | XMS_ITS | Encounter Summary ---
Author Organization [facility] [place] [address] Care Team Providers Care Collections Rep Name Role Phone Nicolasa Prince APRN Primary Care Provider +1- [phone] Reason for Visit * Reason Onset Date Comments Medication Refill 03/23/2024 Encounter Details Date Type Department Care Team (Late st Contact Info) Description 03/23/2024 [place] [address] Irene Lara MD [facility] [place] [address] Autoimmune hepatitis Social History Tobacco Use Types [...] hepatitis documented in this encounter Care Teams Collections Rep Relationship Specialty Start Date End Date Nicolasa Prince APRN [address] [place] [address] PCP - General Family Medicine 01/08/21 documented as of this encounter
--- OUTSIDE RECORDS SUMMARY | 2024-03-31 01:34 | XMS_ITS | Encounter Summary ---
Author Organization [facility] [place] [address] Care Team Providers Care Rfid Systems Architect Name Role Phone Nicolasa Prince APRN Primary Care Provider +1- [phone] Encounter Details Date Type Department Care Team (Late st Contact Info) Description 03/10/2023 Telephone [place] [id number] Irene Lara MD [facility] [place] [address] Social History Tobacco Use Types Packs/Day Years [...] Lara MD Section of Gastroenterology & Hepatology [address] [place] [address] documented in this encounter Plan of Treatment Not on file documented as of this encounter Visit Diagnoses Not on filedocumented in this encounter Care Teams Rfid Systems Architect Relationship Specialty Start Date End Date Nicolasa Prince APRN [address] [place] [address] PCP - General Family Medicine 01/08/21 documented as of this encounter
--- OUTSIDE RECORDS SUMMARY | 2024-03-31 01:34 | XMS_ITS | Encounter Summary ---
Author Organization [facility] [place] [address] Care Team Providers Care Computer Help Desk Specialist Name Role Phone Nicolasa Prince APRN Primary Care Provider +1- [phone] Reason for Visit * Reason Onset Date Comments Medication Refill 12/08/2023 Encounter Details Date Type Department Care Team (Late st Contact Info) Description 12/08/2023 Refill [place] [address] Elin Carlson MD [facility] [place] [address] Autoimmune hepatitis Social History Tobacco Use Types [...] hepatitis documented in this encounter Care Teams Computer Help Desk Specialist Relationship Specialty Start Date End Date Nicolasa Prince APRN [address] [place] [address] PCP - General Family Medicine 01/08/21 documented as of this encounter
--- OUTSIDE RECORDS SUMMARY | 2024-03-31 01:34 | XMS_ITS | Encounter Summary ---
Author Organization [facility] Address [facility] [place] [address] Care Team Providers Care Winder Operator Name Role Phone Nicolasa Prince YULIA Primary Care Provider +1- [phone] Encounter Details Date Type Department Care Team (Latest Contact Info) Description 09/28/2023 10:06 AM EDT - 09/28/2023 11:59 PM EDT Hospital Encounter [place] [address] Carolynn Lamar MD [facility] [place] [address] Biliary cirrhosis Discharge Disposition: Home Social History [...] Protocol (09/28/2023 10:54 AM EDT) WORKSTATION ID [id number] RAD Anatomical Region Laterality Modality Abdomen Ultrasound [...] AM Electronically signed by: Fiordaliza Fabian MD, [facility] ([phone]), at 09/28/2023 11:34 AM Thank you for letting us participate in the care of this patient. If you are a health care provider and have any questions regarding this report, please contact the number above. For patients who have questions, please contact the health care assistant that requested your imaging first. ?Fiordaliza Fabian E Food Science Technician Electronically Signed Final Report ?? 09/28/2023 11:41 am Narrative 09/28/2023 11:42 AM EDT Abdominal ? (Signed Final 09/28/2023 11:41 am) PATIENT INFO: ID #: ? [id number] ?: ??[birth year] (72 yrs)(F) Name: ? PREMA LEATHA ?Visit Date: 09/28/2023 10:34 am PERFORMED BY: Attending: ?Caren LUTHER, Fiordaliza Prado Resident: ? Madhavi Thomas MD Performed By: ? Joanna Bronson RDMS Referred By: ?CAORLYNN LAMAR Location: ? [place] SERVICE(S) PROVIDED: [facility] - Hepatology Protocol - Abdominal ?77219 Limited Survey Single Organ or Quadrant - [id number] INDICATIONS: cirrhosis, screen for hcc COMPARISON: US [...] 09/28/2023 11:41 am) PATIENT INFO: ID #: [id number] : [birth year] (72 yrs)(F) Name: PREMA SALGADO Visit Date: 09/28/2023 10:34 am PERFORMED BY: Attending: Fiordaliza Fabian MD Resident: Madhavi Thomas MD Performed By: Joanna Bronson RDMS Referred By: CAROLYNN LAMAR Location: [place] SERVICE(S) PROVIDED: [facility] - Hepatology Protocol - Abdominal 67334 Limited Survey Single Organ or Quadrant - [id number] INDICATIONS: cirrhosis, screen for hcc COMPARISON: US [...] AM Electronically signed by: Fiordaliza Fabian MD, [facility] ([phone]), at 09/28/2023 11:34 AM Thank you for letting us participate in the care of this patient. If you are a health care provider and have any questions regarding this report, please contact the number above. For patients who have questions, please contact the health care assistant that requested your imaging first. GULSHAN Chiang Food Science Technician Electronically Signed Final Report 09/28/2023 11:41 am Carolynn Lamar MD IMG GEN ORDERABLE S documented in this encounter Visit Diagnoses Diagnosis Biliary cirrhosis documented in this encounter Care Teams Winder Operator Relationship Specialty Start Date End Date Nicolasa Prince APRN [address] [place] [address] PCP - General Family Medicine 01/08/21 documented as of this encounter
--- OUTSIDE RECORDS SUMMARY | 2024-03-31 01:34 | XMS_ITS | Referral Summary ---
Author Organization [facility] Address [address] [place] [address] Care Team Providers Care Sand Buffer Name Role Phone Unavailable Primary Care Provider Unavailabl e Encounters Date Type Department Care Team Description 01/11/2024 Lab Requisition [facility] Pathology & [place] [address] Outr Resulting Lab, Provider from Last 3 [...] Marker <2.5 <8.1 ng/mL 01/12/2024 9:52 EDT [facility] Comment: AFP Tumor Marker [...] & BLOOD GA S ORDERABLES Final Result [facility] [address] [place], [place] [address] from Last 3 Months
--- OUTSIDE RECORDS SUMMARY | 2024-03-31 01:34 | XMS_ITS | Encounter Summary ---
Author Organization [facility] [place] [address] Care Team Providers Care Folder Seamer Name Role Phone Nicolasa Prince APRN Primary Care Provider +1- [phone] Reason for Visit * Auth/Cert (Routine) Specialty Diagnoses / Procedures Referred By Contkolby t Referred To Contact Diagnoses Encounter for screening for malignant neoplasm of colon 6 month Procedures PRO COLONOSCOPY, DIAGNOSTIC PRO COLONOSCOPY, BIOPSY PRO COLONOSCOPY, REMV LESN, SNARE PRO ANES, LWR INTESTINE, SCREENING COLONOSCOPY COLONOSCOPY,SCREENING (WRVU 3.26) Elin Carlson MD [facility] [place] [address] [facility] Referral ID Status Reason Start Date Expiration Date Visits Re quested Visits Authorized [id number] 1 1 Encounter Details Date Type Department Care Team (Late st Contact Info) Description 02/19/2023 1:45 PM EDT - 02/19/2023 2:30 PM EDT Surgery [place] [address] Elin Carlson MD [facility] [place] [address] COLONOSCOPY, POLYPECTOMY, REMOVAL LESION BY SNARE (WRVU [...] occurs, please contact your Doctor. Please call [phone] before 8pm Mon-Fri with problems, questions or concerns. If you call after 8pm or on weekends, call the Hospital at [phone] and ask to speak to the Belt Back Operator electron beam photo mask technician and the glue mounter operator will contact that person for you. When should you call for help? Call [phone] anytime you think you may need emergency [...] Visit Summary and more online at [email or web address] If you would like to provide [...] cost to you. Content Version: 12.2 ?? [id number] [employer]. Care instructions adapted under license by [facility]. If you have questions about a medical condition or this instruction, always ask your healthcare professional. [employer] disclaims any warranty or liability for your [...] List Diagnosis Code Atherosclerotic heart disease of [place] coronary artery without angina pectoris I25.10 EXAM: [...] 02/19/2023 2:32 PM EDT Colonoscopy, Gauri Zavala ([id number]) 02/19/2023 1:54 PM EDT 6 month COLONOSCOPY Routine 02/19/2023 1:47 PM EDT documented in this encounter Results * Surgical Pathology Report (02/19/2023 2:32 PM EDT) Final Diagnosis [id number] ? Location: 4T; EA12; A The signing pathologist has (i) examined the relevant preparation(s) for the specimen(s) and (ii) rendered or confirmed the diagnosis(es). . ?Surgical Pathology DIAGNOSIS A - Ascending colon polyps 2mm, 1mm, resection: - ??Fragments of tubular adenoma. B - Rectal polyp 1mm, resection: - ??Hyperplastic polyp. CR-PX Electronically signed by: ?Per LUTHER, Arpit Verified: ??03/01/2023 16:31 ??Pathologist Performed at: ??-[facility] Dept. of Pathology, [place] [address] Rug Receiving Clerk: Stefan Min MD, FCAP, ??CLIA Certificate: [id number] SPECIMEN(S) SUBMITTED A - ascending colon polyps [...] 4:[address] [facility] GI Biopsy 02/19/2023 2:32 PM EDT 02/19/2023 2:32 PM EDT GI Biopsy 02/19/2023 2:32 PM EDT 02/19/2023 2:32 PM EDT Elin Carlson MD PATHOLOGY/CYTOLOGY O RDERABLES Performing Organization Address [facility] [place] [address] [facility] [place] [address] * Specimen to Pathology (02/19/2023 2:32 PM EDT) AP Specimen 02/19/2023 2:32 PM EDT 02/19/2023 2:32 PM EDT Narrative [facility] - 02/19/2023 2:32 PM EDT Specimen requisition ordered. ??Separate Pathology report to follow Elin Carlson MD PATHOLOGY/CYTOLOGY O MEENU Performing Organization Address [facility] [place] [address] * Specimen to Pathology (02/19/2023 2:32 PM EDT) AP Specimen 02/19/2023 2:32 PM EDT 02/19/2023 2:32 PM EDT Narrative [facility] - 02/19/2023 2:32 PM EDT Specimen requisition ordered. ??Separate Pathology report to follow Elin Carlson MD PATHOLOGY/CYTOLOGY O MEENU Performing Organization Address [facility] [place] [address] * COLONOSCOPY (02/19/2023 1:47 PM EDT) COLONOSCOPY [facility] Procedure Date: 02/19/2023 1:47 PM ? Patient Name: Cookie Salgado ? Date of : 1950 ? Age: 72 ? Order #: [id number] ? Instrument Name: [id number] ? Procedure: ? Colonoscopy Indications: ? Follow-up [...] ? was evaluated using the BBPS ? ([place] Bowel Preparation Scale) ? with scores of: [...] Procedure Code(s): ? --- Professional --- ? 02470, Colonoscopy, flexible; with ? removal of tumor(s), polyp(s), or ? other lesion(s) by snare technique CPT copyright 2021 [employer]. All rights reserved. The codes documented in this report are preliminary and upon clinical microbiologist review may be revised to meet current compliance requirements. Attending Participation: ? I personally performed the entire procedure. ? Elin Carlson MD _ Elin Carlson MD 02/19/2023 2:36:53 PM This report has been signed electronically. Number of Addenda: 0 Note Initiated On: 02/19/2023 1:47 PM PROVATION 02/19/2023 1:47 PM EDT Nicolasa Prince PATIENT SERVICES ASSISTANT GENERAL SURGICAL O RDERABLES PROVATION documented in [...] RN) documented in this encounter Care Teams Folder Seamer Relationship Specialty Start Date End Date Nicolasa Prince APRN [address] [place] [address] PCP - General Family Medicine 01/08/21 documented as of this encounter
--- OUTSIDE RECORDS SUMMARY | 2024-03-31 01:34 | XMS_ITS | Encounter Summary ---
Author Organization [facility] [place] [address] Care Team Providers Care Supervisor Channel Process Name Role Phone Nicolasa Prince APRN Primary Care Provider +1- [phone] Encounter Details Date Type Department Care Team [...] on filedocumented in this encounter Care Teams Supervisor Channel Process Relationship Specialty Start Date End Date Nicolasa Prince APRN [address] [place] [address] PCP - General Family Medicine 01/08/21 documented as of this encounter
--- OUTSIDE RECORDS SUMMARY | 2024-03-31 01:34 | XMS_ITS | Encounter Summary ---
Author Organization [facility] [place] [address] Care Team Providers Care Quarter Doper Name Role Phone Nicolasa Prince APRN Primary Care Provider +1- [phone] Reason for Visit * Reason Comments Medication Refill Encounter Details Date Type Department Care Team (Late st Contact Info) Description 03/14/2023 [place] [address] Irene Lara MD [facility] [place] [address] Autoimmune hepatitis Social History Tobacco Use Types [...] hepatitis documented in this encounter Care Teams Quarter Doper Relationship Specialty Start Date End Date Nicolasa Prince APRN [address] [place] [address] PCP - General Family Medicine 01/08/21 documented as of this encounter
--- OUTSIDE RECORDS SUMMARY | 2024-03-31 01:34 | XMS_ITS | Encounter Summary ---
Author Organization [facility] Address [address] [place] [address] Care Team Providers Care Bow Maker Name Role Phone Unavailable Primary Care Provider Unavailabl e Encounter Details Date Type Department Care Team (Late st Contact Info) Description 01/11/2024 Lab Requisition [facility] Pathology & Laboratory Medicine - [address] [address] Outr Resulting Lab, Provider Social History Tobacco [...] Marker <2.5 <8.1 ng/mL 01/12/2024 9:52 EDT [facility] Comment: AFP Tumor Marker cannot [...] & BLOOD GA S ORDERABLES Final Result [facility] [address] [place] [address] documented in this encounter Visit Diagnoses Not on filedocumented in this encounter
--- OUTSIDE RECORDS SUMMARY | 2024-03-31 01:34 | XMS_ITS | Encounter Summary ---
[place] [address] Care Team Providers Care Editor School Photograph Name Role Phone Nicolasa Prince APRN Primary Care Provider +1- [phone] Encounter Details Date Type Department Care Team (Latest Contact Info) Description 09/28/2023 11:15 AM EDT Laboratory Appointment Lab [address] [place] [address] Primary biliary cholangitis Social History Tobacco Use [...] Protein, Total 7.6 6.1 - 8.0 g/dL [facility] Albumin 4.4 3.2 - 5.2 g/dL [facility] Aspartate Aminotransferase 25 0 - 30 unit/L [facility] Alanine Aminotransferase 23 0 - 30 unit/L [facility] Alkaline Phosphatase 70 35 - 105 unit/L [facility] Bilirubin, Total 0.7 0.2 - 1.3 mg/dL [facility] Bilirubin, Direct 0.3 0.0 - 0.3 mg/dL [facility] Blood 09/28/2023 11:4 6 AM EDT 09/28/2023 11:51 AM EDT Narrative Resulting Agency Comment Spec In Lab Irene Lara MD CHEMISTRY ORDERABLES Performing Organization Address City/State/[facility] Co de Phone Number [facility] [place] [address] documented in this encounter Visit Diagnoses Diagnosis Primary biliary cholangitis documented in this encounter Care Teams Editor School Photograph Relationship Specialty Start Date End Date Nicolasa Prince APRN [address] [place] [address] PCP - General Family Medicine 01/08/21 documented as of this encounter
--- OUTSIDE RECORDS SUMMARY | 2024-03-31 01:34 | XMS_ITS | Clinical Summary ---
Author Organization [facility] Address [address] [place] [address] Care Team Providers Care Outreach Rep Name Role Phone Unavailable Primary Care Provider Unavailabl e Encounters Date Type Department Care Team Description 01/11/2024 Lab Requisition [facility] Pathology & Laboratory Medicine - [address] [address] Outr Resulting Lab, Provider from Last 3 [...] <8.1 ng/mL 01/12/2024 9:52 EDT [facility] Comment: AFP Tumor Marker [...] GA S ORDERABLES Final Result [facility] [address] [place] [address] from Last 3 Months
--- OUTSIDE RECORDS SUMMARY | 2024-03-31 01:34 | XMS_ITS | Encounter Summary ---
Author Organization [facility] [place] [address] Care Team Providers Care Lvn Name Role Phone Nicolasa Prince APRN Primary Care Provider +1- [phone] Reason for Visit * Reason Comments Medication Refill Encounter Details Date Type Department Care Team (Late st Contact Info) Description 08/23/2023 Ref[place] [address] Irene Lara MD [facility] [place] [address] Autoimmune hepatitis Social History Tobacco Use Types [...] hepatitis documented in this encounter Care Teams Lvn Relationship Specialty Start Date End Date Nicolasa Prince APRN [address] [place] [address] PCP - General Family Medicine 01/08/21 documented as of this encounter
--- OUTSIDE RECORDS SUMMARY | 2024-03-31 01:34 | XMS_ITS | Encounter Summary ---
Author Organization [facility] [place] [address] Care Team Providers Care Sifter And Miller Name Role Phone Nicolasa Prince APRN Primary Care Provider +1- [phone] Reason for Visit * Reason Comments Medication Refill Encounter Details Date Type Department Care Team (Late st Contact Info) Description 11/19/2023 Refill [place] [address] Irene Lara MD [facility] [place] [address] Autoimmune hepatitis Social History Tobacco Use Types [...] hepatitis documented in this encounter Care Teams Sifter And Miller Relationship Specialty Start Date End Date Nicolasa Prince APRN [address] [place] [address] PCP - General Family Medicine 01/08/21 documented as of this encounter
--- OUTSIDE RECORDS SUMMARY | 2024-03-31 01:35 | XMS_ITS | Encounter Summary ---
Author Organization [facility] Address [facility] [place] [address] Care Team Providers Care Steel Pourer Name Role Phone Nicolasa Prince APRN Primary Care Provider +1- [phone] Encounter Details Date Type Department Care Team (Late st Contact Info) Description 11/24/2021 External Results [place] [address] Irene Lara MD [facility] [place] [address] Social History Tobacco Use Types Packs/Day Years [...] on filedocumented in this encounter Care Teams Steel Pourer Relationship Specialty Start Date End Date Nicolasa Prince APRN [address] [place], [place] [address] PCP - General Family Medicine 01/08/21 documented as of this encounter
--- OUTSIDE RECORDS SUMMARY | 2024-03-31 01:35 | XMS_ITS | Encounter Summary ---
Author Organization Formerly [facility] Address [facility] [place] [address] Care Team Providers Care Cardiopulmonary Technician And Eeg Tech Name Role Phone Nicolasa Prince APRN Primary Care Provider +1- [phone] Encounter Details Date Type Department Care Team (Latest Contact Info) Description 08/17/2022 10:14 AM EDT - 08/17/2022 11:59 PM EDT Hospital [place] [phone] Irene Lamar MD [facility] [place] [address] Autoimmune hepatitis; Primary biliary cholangitis; Hepatic cirrhosis, [...] interpretation and agree with the findings, Kashmir Linsday MD at 08/17/2022 2:04 PM Electronically signed by: Kashmir Lindsay MD, [facility] ([phone]), at 08/17/2022 2:04 PM Thank you for letting us participate in the care of this patient. If you are a health care provider and have any questions regarding this report, please contact the number above. For patients who have questions, please contact the health managed care analyst that requested your imaging first. ?Kashmir Lindsay, Staff Physician Electronically Signed Final Report ?? 08/17/2022 02:12 pm Narrative 08/17/2022 2:12 PM EDT Abdominal ? (Signed Final 08/17/2022 02:12 pm) PATIENT INFO: ID #: ? [id number] ?: ??[birth year] (71 yrs)(F) Name: ? PREMA SALGADO ?Visit Date: 08/17/2022 10:53 am PERFORMED BY: Attending: ?Neftali LUTHER, Kashmir Resident: ? Milagros LUTHER, James Curtis Performed By: ? Angelina Crystal RDMS Referred By: ?IRENE LAMAR Location: ? [place] SERVICE(S) PROVIDED: [facility] - Hepatology Protocol - Abdominal ?93772 Limited Survey Single Organ or Quadrant - [id number] INDICATIONS: cirrhosis, screen for hcc; assess for [...] 08/17/2022 02:12 pm) PATIENT INFO: ID #: [id number] : 54 (71 yrs)(F) Name: PREMA SALGADO Visit Date: 08/17/2022 10:53 am PERFORMED BY: Attending: Kashmir Lindsay MD Resident: James Linares MD Performed By: Angelina Crystal RDMS Referred By: IRENE LAMAR Location: [place] SERVICE(S) PROVIDED: [facility] - Hepatology Protocol - Abdominal 58741 Limited Survey Single Organ or Quadrant - [id number] INDICATIONS: cirrhosis, screen for hcc; assess for [...] PM Electronically signed by: Kashmir Lindsay MD, [facility] ([phone]), at 08/17/2022 2:04 PM Thank you for letting us participate in the care of this patient. If you are a health care provider and have any questions regarding this report, please contact the number above. For patients who have questions, please contact the health managed care analyst that requested your imaging first. Kashmir Lindsay, Staff Physician Electronically Signed Final Report 08/17/2022 02:12 pm Irene Lamar MD IMG US GEN ORDERABLE S documented in this encounter Visit Diagnoses Diagnosis Autoimmune hepatitis Primary biliary cholangitis Hepatic cirrhosis, unspecified hepatic cirrhosis type, unspecified whether ascites present documented in this encounter Care Teams Cardiopulmonary Technician And Eeg Tech Relationship Specialty Start Date End Date Nicolasa Prince APRN [address] [place] [address] PCP - General Family Medicine 01/08/21 documented as of this encounter
--- OUTSIDE RECORDS SUMMARY | 2024-03-31 01:35 | XMS_ITS | Encounter Summary ---
Author Organization [facility] [place] [address] Care Team Providers Care Permit Review Assistant Name Role Phone Nicolasa Prince APRN Primary Care Provider +1- [phone] Encounter Details Date Type Department Care Team (Late st Contact Info) Description 05/23/2022 Telephone [place] [phone] Alisia Driver Social History Tobacco Use Types [...] it can be handled by: Any Endoscopy Rn Clinical Documentation Specialist documented in this encounter Plan of Treatment Not on file documented as of this encounter Visit Diagnoses Not on filedocumented in this encounter Care Teams Permit Review Assistant Relationship Specialty Start Date End Date Nicolasa Prince APRN [address] [place] [address] PCP - General Family Medicine 01/08/21 documented as of this encounter
--- OUTSIDE RECORDS SUMMARY | 2024-03-31 01:35 | XMS_ITS | Encounter Summary ---
Author Organization [facility] Address [facility] [place] [address] Care Team Providers Care A Class Lineman Name Role Phone Nicolasa Prince YULIA Primary Care Provider +1- [phone] Encounter Details Date Type Department Care Team (Latest Contact Info) Description 02/10/2022 9:51 AM EDT - 02/10/2022 11:59 PM EDT Hospital En[place] [phone] Carolynn Lamar MD [facility] [place] [address] Primary biliary cholangitis; Hepatic cirrhosis, unspecified hepatic [...] dilatation. Electronically signed by: Fiordaliza Fabian MD, [facility] ([phone]), at 02/10/2022 10:32 AM Thank you for letting us participate in the care of this patient. If you are a health care provider and have any questions regarding this report, please contact the number above. For patients who have questions, please contact the health home care provider that requested your imaging first. ? Fiordaliza Fabian, Staff Physician Electronically Signed Final Report ?? 02/10/2022 10:39 am Narrative 02/10/2022 10:39 AM EDT Abdominal ? (Signed Final 02/10/2022 10:39 am) PATIENT INFO: ID #: ? [id number] ?: ??[birth year] (71 yrs)(F) Name: ? PREMA SALGADO ?Visit Date: 02/10/2022 10:18 am PERFORMED BY: Performed By: ? Sarahi Flores RDMS Attending: ?Caren LUTHER, Fiordaliza Prado Referred By: ?CAROLYNN LAMAR Location: ? [place] SERVICE[facility]S) PROVIDED: [facility] - Hepatology Protocol - Abdominal ?70429 Limited Survey Single Organ or Quadrant - [id number] INDICATIONS: Cirrhosis, screen for HCC COMPARISON: MRI [...] 02/10/2022 10:39 am) PATIENT INFO: ID #: [id number] : 54 (71 yrs)(F) Name: PREMA SALGADO Visit Date: 02/10/2022 10:18 am PERFORMED BY: Performed By: Sarahi Flores RDMS Attending: Fiordaliza Fabian MD Referred By: CAROLYNN LAMAR Location: [place] [facility] Hep[facility] Protocol - Abdominal 47718 Limited Survey Single Organ or Quadrant - [id number] INDICATIONS: Cirrhosis, screen for HCC COMPARISON: MRI [...] dilatation. Electronically signed by: Fiordaliza Fabian MD, [facility] ([phone]), at 02/10/2022 10:32 AM Thank you for letting us participate in the care of this patient. If you are a health care provider and have any questions regarding this report, please contact the number above. For patients who have questions, please contact the health home care provider that requested your imaging first. Fiordaliza Fabian, Staff Physician Electronically Signed Final Report 02/10/2022 10:39 am Carolynn Lamar MD IMG US GEN ORDERABLE S documented in this encounter Visit Diagnoses Diagnosis Primary biliary cholangitis Hepatic cirrhosis, unspecified hepatic cirrhosis type, unspecified whether ascites present documented in this encounter Care Teams A Class Lineman Relationship Specialty Start Date End Date Suresh Nicolasa Chan, YULIA [address] [place] [address] PCP - General Family Medicine 01/08/21 documented as of this encounter
--- OUTSIDE RECORDS SUMMARY | 2024-03-31 01:35 | XMS_ITS | Encounter Summary ---
Author Organization [facility] [place] [address] Care Team Providers Care Artificial Limb Fitter Name Role Phone Nicolasa Prince APRN Primary Care Provider +1- [phone] Encounter Details Date Type Department Care Team (Late Contact Info) Description 09/04/2021 [place] [phone] Thania Wilson, RN Social History Tobacco Use [...] at 09/03/2021 10:04 AM EDT ----- No [facility] account. AIH/PBC- recently cut azathioprine dose. Could you call her and ask to repeat labs in 4 weeks? Thanks irene 09/04 Called pt; had to leave [facility]. Nurse contact info provided. Need to confirm current aza dose. 09/18 Called pt; she is scheduled for 09/25 blood draw at her PCP. Will plan to request those results. documented in this encounter Plan of Treatment Not on file documented as of this encounter Visit Diagnoses Not on filedocumented in this encounter Care Teams Artificial Limb Fitter Relationship Specialty Start Date End Date Nicolasa Prince, CFO [address] [place] [address] PCP - General Family Medicine 01/08/21 documented as of this encounter
--- OUTSIDE RECORDS SUMMARY | 2024-03-31 01:35 | XMS_ITS | Encounter Summary ---
[place] [address] Care Team Providers Care Sewing Pattern Layout Technician Name Role Phone Suresh Nicolasa Giles APRN Primary Care Provider +1- [phone] Reason for Referral * Diagnostic Test (Routine) - Closed Specialty Diagnoses / Procedures Referred By Contac t Referred To Contact Radiology Diagnoses Primary biliary cholangitis Procedures MRI Abdomen wwo Contrast (Generic) Harmony Andrade THERAPEUTIC STRATEGY LEAD [facility] [place] [address] [place] [address] Referral ID Status Reason Start Date Expiration Date V isits Requested Visits Authorized [id number] Closed Specialty Service Requested 02/19/2021 08/20/2022 1 1 Reason for Visit * Diagnostic Test (Routine) - Closed Specialty Diagnoses / Procedures Referred By Contac t Referred To Contact Radiology Diagnoses Primary biliary cholangitis Procedures MRI Abdomen wwo Contrast (Generic) Harmony Andrade [facility] [place] [address] [place] [address] Referral ID Status Reason Start Date Expiration Date V isits Requested Visits Authorized [id number] Closed Specialty Service Requested 02/19/2021 08/20/2022 1 1 Encounter Details Date Type Department Care Team (Latest Contact Info) Description 07/22/2021 9:43 AM EDT - 07/22/2021 11:59 PM EDT [place] [address] Harmony Andrade APRN [facility] [place] [address] Primary biliary cholangitis Discharge Disposition: Home Social [...] who have questions please contact the health acute care assistant that requested your imaging first. ? Electronically signed by: Ramon Verduzco MD, [facility] ([phone]), at 07/22/2021 11:29 AM Narrative 07/22/2021 11:29 [...] patients who have questions please contactthe health acute care assistant that requested your imaging first. Electronically signed by: Ramon Verduzco MD, [facility]([phone]), at 07/22/2021 11:29 AM Harmony Andrade APRN [facility] [place] ORDERABLES documented in this encounter Visit [...] mLs documented in this encounter Care Teams Sewing Pattern Layout Technician Relationship Specialty Start Date End Date Nicolasa Prince APRN [address] [place] [address] PCP - General Family Medicine 01/08/21 documented as of this encounter
--- OUTSIDE RECORDS SUMMARY | 2024-03-31 01:35 | XMS_ITS | Encounter Summary ---
Author Organization [facility] [place] [address] Care Team Providers Care Sales Representative Graphic Art Name Role Phone Nicolasa Prince APRN Primary Care Provider +1- [phone] Reason for Visit * Reason Comments Medication Refill Encounter Details Date Type Department Care Team (Late st Contact Info) Description 12/14/2022 [place] [address] Irene Lara MD [facility] [place] [address] Autoimmune hepatitis Social History Tobacco Use Types [...] hepatitis documented in this encounter Care Teams Sales Representative Graphic Art Relationship Specialty Start Date End Date Nicolasa Prince APRN [address] [place] [address] PCP - General Family Medicine 01/08/21 documented as of this encounter
--- OUTSIDE RECORDS SUMMARY | 2024-03-31 01:35 | XMS_ITS | Encounter Summary ---
Author Organization [facility] [place] [address] Care Team Providers Care Director Of Special Services Name Role Phone Nicolasa Prince APRN Primary Care Provider +1- [phone] Encounter Details Date Type Department Care Team [...] in this encounter Care Teams Director Of Special Services Relationship Specialty Start Date End Date Nicolasa Prince APRN [address] [place] [address] PCP - General Family Medicine 01/08/21 documented as of this encounter
--- OUTSIDE RECORDS SUMMARY | 2024-03-31 01:35 | XMS_ITS | Encounter Summary ---
Author Organization [facility] [place] [address] Care Team Providers Care Manager Integrity Name Role Phone Nicolasa Prince APRN Primary Care Provider +1- [phone] Reason for Visit * Reason Comments Medication Refill Encounter Details Date Type Department Care Team (Late st Contact Info) Description 07/17/2022 Refill [place] [address] Irene Lara MD [facility] [place] [address] Autoimmune hepatitis Social History Tobacco Use Types [...] labs. She would like orders faxed to [facility]. Orders sent. Provided patient with contact information for [facility] Lab. documented in this encounter Plan of Treatment Not on file documented as of this encounter Visit Diagnoses Diagnosis Autoimmune hepatitis documented in this encounter Care Teams Manager Integrity Relationship Specialty Start Date End Date Nicolasa Prince APRN [address] [place] [address] PCP - General Family Medicine 01/08/21 documented as of this encounter
--- OUTSIDE RECORDS SUMMARY | 2024-03-31 01:35 | XMS_ITS | Encounter Summary ---
[place] [address] Care Team Providers Care Mint Machine Operator Name Role Phone Nicolasa Prince YULIA Primary Care Provider +1- [phone] Encounter Details Date Type Department Care Team (Latest Contact Info) Description 07/22/2021 11:35 AM EDT Laboratory Appointment Lab [address] [place] [phone] Primary biliary cholangitis Social History Tobacco Use [...] Hemoglobin A1c 9.4(H) 4.3 - 5.6 % [facility] [...] Mellitus, Diabetes Care 2013; 36: Suppl. 1, R77-78 Estimated Average Glucose 222 mg/dL [facility] Comment: [...] into estimated average glucose values. ??Diabetes Care 2008:31(8):4523-5297. Blood Venous Draw / Unknown 07/22/2021 11:40 AM EDT 07/22/2021 2:17 PM EDT Narrative Resulting Agency Comment Spec In Lab Irene Lara MD CHEMISTRY ORDERABLES Performing Organization Address City/State/[facility] Co de Phone Number [facility] [place] [address] * Differential, Automated (07/22/2021 11:40 AM EDT) Neutrophil % 67.4 % [facility] Neutrophil Absolute 3.18 1.70 - 6.10 x10(3)/[facility] Lymph % 22.0 % [facility] Lymphocytes Abs 1.0 0.9 - 3.2 x10(3)/[facility] Monocyte % 8.7 % [facility] Monocyte Abs 0.4 0.3 - 0.9 x10(3)/[facility] Eos % 1.3 % [facility] Eosinophils Abs 0.1 0.0 - 0.4 x10(3)/[facility] Basophil % 0.4 % [facility] Baso Absolute 0.0 0.0 - 0.1 x10(3)/[facility] Immature Gran % 0.20 % [facility] Comment: Immature granulocytes(IG's)percentage and absolute count will include metamyelocytes, myelocytes, and promyelocytes. Blood smears from CBCs yielding IG's will be scanned manually for concordance. If this scan disagrees with the automated IG or if promyelocytes are noted, a manual differential will be performed. Immature Gran Absolute 0.01 0.00 - 0.04 x10(3)/[facility] Blood 07/22/2021 11:4 0 AM EDT 07/22/2021 11:55 AM EDT Narrative Resulting Agency Comment Spec In Lab Irene Lara MD HEMATOLOGY ORDERABLE S [facility] [place] [address] * (ABNORMAL) Hemogram (07/22/2021 11:40 AM EDT) White Blood Cell 4.7 4.0 - 9.5 x10(3)/mc L [facility] Red Blood Cell 5.44(H) 4.00 - 5.21 x10(6)/mc L [facility] Hemoglobin 16.8(H) 11.7 - 15.5 g/dL [facility] Hematocrit 49.7(H) 35.7 - 45.8 % [facility] Mean Cell Volume 91.4 82.6 - 94.4 fL [facility] Mean Cell Hemoglobin 30.9 27.1 - 32.0 pg [facility] Mean Cell Hemoglobin Concentration 33.8 31.7 - 35.0 g/dL [facility] Platelet 141(L) 145 - 357 x10(3)/mc L [facility] RDW Standard Deviation 45.5 37.0 - 46.0 fL [facility] RDW coefficient of variation 13.5 11.5 - 14.1 % [facility] Mean Platelet Volume 10.8 7.6 - 12.9 fL [facility] NRBC% auto 0.0 % [facility] NRBC Absolute 0.000 0.000 - 0.000 x10(3)/mc L [facility] Blood 07/22/2021 11:4 0 AM EDT 07/22/2021 11:55 AM EDT Narrative Resulting Agency Comment Spec In Lab Irene Lara MD HEMATOLOGY ORDERABLE S [facility] [place] [address] * (ABNORMAL) Comprehensive metabolic panel (non-fasting) (07/22/2021 [...] Lara MD CHEMISTRY ORDERABLES Performing Organization Address [facility]/ZIP Co de Phone Number [facility] [place] [address] * AFP tumor marker (07/22/2021 11:40 AM EDT) Alpha Fetoprotein 3.4 <=8.3 ng/mL [facility] Blood 07/22/2021 11:4 0 AM EDT 07/22/2021 11:55 AM EDT Narrative Resulting Agency Comment Spec In Lab Irene Lara MD CHEMISTRY ORDERABLES Performing Organization Address [facility] Co de Phone Number [facility] [place] [address] * Prothrombin Time (07/22/2021 11:40 AM EDT) [...] MD HEMATOLOGY ORDERABLE S Performing Organization Address [facility] Co de Phone Number [facility] [place] [address] documented in this encounter Visit Diagnoses Diagnosis Primary biliary cholangitis documented in this encounter Care Teams Mint Machine Operator Relationship Specialty Start Date End Date Nicolasa Prince APRN [address] [place] [address] PCP - General Family Medicine 01/08/21 documented as of this encounter
--- OUTSIDE RECORDS SUMMARY | 2024-03-31 01:35 | XMS_ITS | Encounter Summary ---
Author Organization [facility] [place] [address] Care Team Providers Care Animal Treatment Investigator Name Role Phone Nicolasa Prince APRN Primary Care Provider +1- [phone] Encounter Details Date Type Department Care Team (Late st Contact Info) Description 09/30/2022 1:00 PM EDT Office [place] [address] Irene Lamar MD [facility] [place] [address] Primary biliary cholangitis; Hepatic cirrhosis, unspecified hepatic [...] [place] and she was managed by a consumer banker at [facility]. Her records were extensively reviewed in [...] normal since approximately 2016. She moved to [place] in 2019.. Living with her two brothers. [...] Vitals: 09/30/22 1248 BP: 128/72 BP Location ([facility]): Right arm Patient Position: Sitting BP [...] this in 3 months. Orders sent to [facility] PCP considering ozempic for diabetes, I have no concerns about this from a liver standpoint and support its use. Time spent with patient: 25 min Time spent reviewing records, documenting- all today : 7 min Irene Lamar MD Section of Gastroenterology & Hepatology [address] [place] [address] Cc: Nicolasa Prince APRN SURGICAL PATHOLOGY REPORT ? Patient: PREMA SALGADO ?MR #: [id number] ?Submitted by: Elie Moreno MD FINAL DIAGNOSIS [...] the ductules cannot be definitively distinguished from [place] bile ducts. ??There is patchy periportal hepatocellular [...] had a prior liver biopsy reviewed at [facility] (see accession number [id number]), although the slides are not available for direct comparison at this time. ??However, based on the microscopic description, it appears that fibrosis may have progressed. documented in this encounter Plan of Treatment Not on file documented as of this encounter Results * AFP tumor marker (03/30/2023 10:23 AM EST) Alpha Fetoprotein 2.8 <=8.3 ng/mL [facility] Comment: This result was generated using a Mendoza Jonathan immunoassay. ??Results obtained from other methods or manufacturers cannot be used interchangeably with this method. Blood 03/30/2023 10:2 3 AM EST 03/30/2023 10:30 AM EST Narrative Resulting Agency Comment Spec In Lab Irene Lamar MD CHEMISTRY ORDERABLES Performing Organization Address [facility] Co de Phone Number [facility] [place] [address] * Prothrombin Time (03/30/2023 10:23 AM EST) Prothrombin Time 12.0 9.4 - 12.5 sec [facility] International Normalization Ratio 1.1 [facility] Comment: An INR <2.0 [...] HEMATOLOGY ORDERABLE S Performing Organization Address [facility] Co de Phone Number [facility] [place] [address] * (ABNORMAL) Comprehensive metabolic panel (non-fasting) (03/30/2023 10:23 AM EST) Glucose 110 65 - 199 mg/dL [facility] Comment:Diabetes: >=200 mg/d L plus symptoms Blood Urea Nitrogen 20(H) 8 - 18 mg/dL [facility] Creatinine 0.82 0.70 - 1.20 mg/dL [facility] Sodium 140 135 - 145 mmol/L [facility] Potassium 4.1 3.5 - 5.0 mmol/L [facility] Comment: Please note: ??Patients with WBC >100,000 may have falsely elevated Potassium levels. ??For accurate Potassium quantification in these patients send serum separator tube (gold top) for subsequent determinations. ??Contact the Clinical Chemistry Laboratory if there are any questions. Chloride 105 98 - 107 mmol/L [facility] Carbon Dioxide 22 22 - 31 mmol/L [facility] Anion Gap 13 5 - 15 mmol/L [facility] Calcium 9.8 8.5 - 10.5 mg/dL [facility] Protein, Total 7.2 6.1 - 8.0 g/dL [facility] Albumin 4.4 3.2 - 5.2 g/dL [facility] Aspartate Aminotransferase 31(H) 0 - 30 unit/L [facility] Alanine Aminotransferase 24 0 - 30 unit/L [facility] Alkaline Phosphatase 64 35 - 105 unit/L [facility] Bilirubin, Total 0.7 0.2 - 1.3 mg/dL [facility] Est Glomerular Filtration Rate 77 >=60 mL/min/1. 73 m?? [facility] Comment: This patient's estimated [...] Lamar MD CHEMISTRY ORDERABLES Performing Organization Address City/State/[facility] Co de Phone Number [facility] [place] [address] * US Abdomen Limited Hepatology Protocol (03/30/2023 [...] have questions, please contact the health care attendant that requested your imaging first. ? Ke Jay, Staff Physician Electronically Signed Final Report ?? 03/30/2023 12:27 pm Narrative 03/30/2023 12:28 PM EST Abdominal ? (Signed Final 03/30/2023 12:27 pm) PATIENT INFO: ID #: ? [id number] ?: ??[birth year] (72 yrs)(F) Name: ? PREMA SALGADO ?Visit Date: 03/30/2023 09:52 am PERFORMED BY: Attending: ?Pierre LUTHER, Ke Conklin Resident: ? Joseph LUTHER, Ada Barrow Performed By: ? Elba Milian RDMS Referred By: ?IRENE LAMAR Location: ? [place] SERVICE(S) PROVIDED: [facility] - Hepatology Protocol - Abdominal ?75412 Limited Survey Single Organ or Quadrant - [id number] INDICATIONS: cirrhosis, screen for hcc COMPARISON: US: [...] 03/30/2023 12:27 pm) PATIENT INFO: ID #: [id number] : [birth year] (72 yrs)(F) Name: PREMA SALGADO Visit Date: 03/30/2023 09:52 am PERFORMED BY: Attending: Ke Jay MD Resident: Ada Ruiz MD Performed By: Elba Milian RDMS Referred By: IRENE LAMAR Location: [place] [facility]) [facility] - Hepatology Protocol - Abdominal 04906 Limited Survey Single Organ or Quadrant - [id number] INDICATIONS: cirrhosis, screen for hcc COMPARISON: US: [...] have questions, please contact the health care attendant that requested your imaging first. Ke Jay, Staff Physician Electronically Signed Final Report 03/30/2023 12:27 pm Irene Lamar MD IMG US GEN ORDERABLE S documented in this encounter Visit Diagnoses Diagnosis Primary biliary cholangitis Hepatic cirrhosis, unspecified hepatic cirrhosis type, unspecified whether ascites present Primary biliary cholangitis Hepatic cirrhosis, unspecified hepatic cirrhosis type, unspecified whether ascites present documented in this encounter Care Teams Animal Treatment Investigator Relationship Specialty Start Date End Date Nicolasa Prince APRN [address] [place] [address] PCP - General Family Medicine 01/08/21 documented as of this encounter
--- OUTSIDE RECORDS SUMMARY | 2024-03-31 01:35 | XMS_ITS | Encounter Summary ---
Author Organization [facility] [place] [address] Care Team Providers Care Civil Preparedness Coordinator Name Role Phone Nicolasa Prince APRN Primary Care Provider +1- [phone] Encounter Details Date Type Department Care Team (Late st Contact Info) Description 07/22/2022 External [place] [address] Irene Lara MD [facility] [place] [address] Social History Tobacco Use Types Packs/Day Years [...] on filedocumented in this encounter Care Teams Civil Preparedness Coordinator Relationship Specialty Start Date End Date Nicolasa Prince APRN [address] [place] [address] PCP - General Family Medicine 01/08/21 documented as of this encounter
--- OUTSIDE RECORDS SUMMARY | 2024-03-31 01:35 | XMS_ITS | Encounter Summary ---
Author Organization [facility] Address [facility] [place] [address] Care Team Providers Care Java Core Developer Name Role Phone Nicolasa Prince APRN Primary Care Provider +1- [phone] Encounter Details Date Type Department Care Team (Late st Contact Info) Description 02/15/2022 Orders [place] [address] Irene Lara MD [facility] [place] [address] Hepatic cirrhosis, unspecified hepatic cirrhosis type, unspecified [...] colon documented in this encounter Care Teams Java Core Developer Relationship Specialty Start Date End Date Nicolasa Prince APRN [address] [place] [address] PCP - General Family Medicine 01/08/21 documented as of this encounter
--- OUTSIDE RECORDS SUMMARY | 2024-03-31 01:35 | XMS_ITS | Encounter Summary ---
Author Organization [facility] [place] [address] Care Team Providers Care Solutions Sales Executive Name Role Phone Nicolasa Prince APRN Primary Care Provider +1- [phone] Reason for Visit * Reason Comments Medication Refill Encounter Details Date Type Department Care Team (Late st Contact Info) Description 09/15/2022 Ref[place] [address] Irene Lara MD [facility] [place] [address] Autoimmune hepatitis Social History Tobacco Use Types [...] hepatitis documented in this encounter Care Teams Solutions Sales Executive Relationship Specialty Start Date End Date Nicolasa Prince APRN [address] [place] [address] PCP - General Family Medicine 01/08/21 documented as of this encounter
--- OUTSIDE RECORDS SUMMARY | 2024-03-31 01:35 | XMS_ITS | Encounter Summary ---
[place] [address] Care Team Providers Care Service Worker Name Role Phone Nicolasa Prince APRN Primary Care Provider +1- [phone] Reason for Referral * Diagnostic Test (Routine) - Closed Specialty Diagnoses / Procedures Referred By Minh miguel Referred To Contact Radiology Diagnoses Primary biliary cholangitis Procedures MRI Abdomen wwo Contrast (Generic) Harmony Dobson APRN [facility] [place] [address] [place] [address] Referral ID Status Reason Start Date Expiration Date V isits Requested Visits Authorized [id number] Closed Specialty Service Requested 02/19/2021 08/20/2022 1 1 Reason for Visit * Reason Comments GI Problem * Consultation (Routine) - Closed Specialty Diagnoses / Procedures Referred By Minh miguel Referred To Contact Gastroenterology Diagnoses Primary biliary cirrhosis Primary biliary cirrhosis Nicolasa Prince APRN [address] [place] [address] [facility] [place] [address] [address] Referral ID Status Reason Start Date Expiration Date V isits Requested Visits Authorized [id number] Closed Consult, Test & Treat Connection [facility] PCP Updated and/or Approved 12/25/2020 06/27/2021 6 6 Encounter Details Date Type Department Care Team (Late st Contact Info) Description 02/19/2021 9:00 AM EDT Office [place] [address] Harmony Dobson APRN [facility] [place] [address] Primary biliary cholangitis; Hepatic cirrhosis, unspecified hepatic [...] HEPATOLOGY NEW PATIENT CONSULTATION Cookie Salgado 1950 CUSTOMER LOYALTY REPRESENTATIVE: HARMONY DOBSON APRN PCP: Nicolasa Prince APRN Requesting Provider: REASON FOR CONSULTATION Primary biliary cholangitis, AIH, cirrhosis transfer of care HISTORY OF PRESENT ILLNESS Cookie Salgado is a 70 y.o. year old female with history of Primary biliary cholangitis who presents today to establish care for her PBC. She was previously followed by hepatology in [place] and recently moved to [place]. She was last followed by GI at [place] - Dr. Yasmin Fletcher. Takes Ursodiol 500mg [...] though she has cirrhosis. She moved to [place] at end of October 2020. She is living in the [facility] with her brother and has had [...] T2 correlate or washout/pseudocapsule (LI-RADS 3). A telephone service representative lesion is seen on series 9 [...] D3,) 50 mcg (2,000 unit) [facility]. ??? 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 Lives near 2 brothers. Alcohol: [...] T2 correlate or washout/pseudocapsule (LI-RADS 3). A telephone service representative lesion is seen on series 9 [...] % hepatocytes affected: >66 % ASSESSMENT/PLAN Cookie Saglado is a 70 y.o. female with history of diabetes, hypertension, Primary biliary cholangitis/AIH overlap, MEDINA, and cirrhosis. She was previously followed by Dr. Yasmin [place] at [facility] and has been on a relatively [...] Dobson APRN Section of Gastroenterology [place] [address] Copy: Nicolasa Prince APRN [address] / [facility] [address] documented in this encounter Plan of Treatment [...] questions please contact the health director of primary care that requested your imaging first. ? Electronically signed by: Ramon Verduzco MD, [facility] ([phone]), at 07/22/2021 11:29 AM Narrative 07/22/2021 11:29 [...] have questions please contactthe health director of primary care that requested your imaging first. Electronically signed by: Ramon Verduzco MD, [facility]([phone]), at 07/22/2021 11:29 AM Harmony Dobson DIALYSIS TECH IMG MRI ORDERABLES * Differential, Automated (02/19/2021 10:54 AM EDT) Neutrophil % 65.2 % [facility] Neutrophil Absolute 3.05 1.70 - 6.10 x10(3)/[facility] Lymph % 23.9 % [facility] Lymphocytes Abs 1.1 0.9 - 3.2 x10(3)/[facility] Monocyte % 8.8 % [facility] Monocyte Abs 0.4 0.3 - 0.9 x10(3)/[facility] Eos % 1.3 % [facility] Eosinophils Abs 0.1 0.0 - 0.4 x10(3)/[facility] Basophil % 0.6 % [facility] Baso Absolute 0.0 0.0 - 0.1 x10(3)/[facility] Immature Gran % 0.20 % [facility] Comment: Immature granulocytes(IG's)percentage and absolute count will include metamyelocytes, myelocytes, and promyelocytes. Blood smears from CBCs yielding IG's will be scanned manually for concordance. If this scan disagrees with the automated IG or if promyelocytes are noted, a manual differential will be performed. Immature Gran Absolute 0.01 0.00 - 0.04 x10(3)/[facility] Blood 02/19/2021 10:5 4 AM EDT 02/19/2021 11:02 AM EDT Narrative Resulting Agency Comment Spec In Lab Harmony Dobson DIALYSIS TECH HEMATOLOGY ORDERAB LES Performing Organization Address City/[facility]/ZIP Co de Phone Number [facility] [place] [address] * (ABNORMAL) Hemogram (02/19/2021 10:54 AM EDT) White Blood Cell 4.7 4.0 - 9.5 x10(3)/mc L [facility] Red Blood Cell 5.15 4.00 - 5.21 x10(6)/mc L [facility] Hemoglobin 16.6(H) 11.7 - 15.5 g/dL [facility] Hematocrit 48.4(H) 35.7 - 45.8 % [facility] Mean Cell Volume 94.0 82.6 - 94.4 fL [facility] Mean Cell Hemoglobin 32.2(H) 27.1 - 32.0 pg [facility] Mean Cell Hemoglobin Concentration 34.3 31.7 - 35.0 g/dL [facility] Platelet 146 145 - 357 x10(3)/mc L [facility] RDW Standard Deviation 46.0 37.0 - 46.0 fL [facility] RDW coefficient of variation 13.3 11.5 - 14.1 % [facility] Mean Platelet Volume 10.6 7.6 - 12.9 fL [facility] NRBC% auto 0.0 % [facility] NRBC Absolute 0.000 0.000 - 0.000 x10(3)/mc L [facility] Blood 02/19/2021 10:5 4 AM EDT 02/19/2021 11:02 AM EDT Narrative Resulting Agency Comment Spec In Lab Harmony Dobson YULIA HEMATOLOGY ORDERAB LES Performing Organization Address City/[facility]/ZIP Co de Phone Number [facility] [place] [address] * (ABNORMAL) Hemoglobin A1c (02/19/2021 10:54 AM EDT) Hemoglobin A1c 8.0(H) 4.3 - 5.6 % [facility] [...] 1, S67-99 Estimated Average Glucose 181 mg/dL [facility] Comment: eAG equivalents for HbA1c [...] into estimated average glucose values. ??Diabetes Care 2008:31(8):3247-6034. Blood 02/19/2021 10:5 4 AM EDT 02/19/2021 11:02 AM EDT Narrative Resulting Agency Comment Spec In Lab Harmony Mccallumzahira BENDER CHEMISTRY ORDERABL ES Performing Organization Address [facility] de Phone Number [facility] [place] [address] * Prothrombin Time (02/19/2021 10:54 AM EDT) Pathologist [facility] Prothrombin Time 11.7 9.4 - 12.5 sec [facility] International Normalization Ratio 1.0 [facility] Comment: An INR [...] BENDER HEMATOLOGY ORDERAB LES Performing Organization Address [facility] de Phone Number [facility] [place] [address] * AFP tumor marker (02/19/2021 10:54 AM EDT) [facility] Alpha Fetoprotein 3.0 <=8.3 ng/mL [facility] Blood 02/19/2021 10:5 4 AM EDT 02/19/2021 11:02 AM EDT Narrative Resulting Agency Comment Spec In Lab Harmony Mccallumzahira BENDER CHEMISTRY ORDERABL ES Performing Organization Address [facility] Co de Phone Number [facility] [place] [address] * (ABNORMAL) Comprehensive metabolic panel (non-fasting) (02/19/2021 10:54 AM EDT) Pathologist [facility] Glucose 141 65 - 199 mg/dL [facility] Comment:Diabetes: >=200 mg/d L plus symptoms Blood Urea Nitrogen 23(H) 8 - 18 mg/dL [facility] Creatinine 0.79 0.70 - 1.20 mg/dL [facility] Sodium 136 135 - 145 mmol/L [facility] Potassium 4.2 3.5 - 5.0 mmol/L [facility] Comment: Please note: ??Patients with WBC >100,000 may have falsely elevated Potassium levels. ??For accurate Potassium quantification in these patients send serum separator tube (gold top) for subsequent determinations. ??Contact the Clinical Chemistry Laboratory if there are any questions. Chloride 104 98 - 107 mmol/L [facility] Carbon Dioxide 24 22 - 31 mmol/L [facility] Anion Gap 8 5 - 15 mmol/L [facility] Calcium 10.0 8.5 - 10.5 mg/dL [facility] Protein, Total 7.9 6.1 - 8.0 g/dL [facility] Albumin 4.3 3.2 - 5.2 g/dL [facility] Aspartate Aminotransferase 24 0 - 30 unit/L [facility] Alanine Aminotransferase 21 0 - 30 unit/L [facility] Alkaline Phosphatase 81 35 - 105 unit/L [facility] Bilirubin, Total 0.6 0.2 - 1.3 mg/dL [facility] Est Glomerular Filtration Rate 77 >=60 mL/min/1. 73 m?? [facility] [...] Lab Harmony Dobson APRN CHEMISTRY ORDERABL ES [facility] [address] documented in this encounter Visit Diagnoses Diagnosis Primary biliary cholangitis Hepatic cirrhosis, unspecified hepatic cirrhosis type, unspecified whether ascites present Autoimmune hepatitis Screening for colon cancer Special screening for malignant neoplasms, colon Primary biliary cholangitis documented in this encounter Care Teams Service Worker Relationship Specialty Start Date End Date Nicolasa Prince APRN [address] [place] [address] PCP - General Family Medicine 01/08/21 documented as of this encounter
--- OUTSIDE RECORDS SUMMARY | 2024-03-31 01:35 | XMS_ITS | Encounter Summary ---
Author Organization [facility] [place] [address] Care Team Providers Care Performance Solutions Specialist Name Role Phone Nicolasa Prince APRN Primary Care Provider +1- [phone] Encounter Details Date Type Department Care Team (Late st Contact Info) Description 02/10/2022 11:30 AM EDT Office Visit [place] [address] Irene Lamar MD [facility] [place] [address] Autoimmune hepatitis; Primary biliary cholangitis; Hepatic cirrhosis, [...] PBC/AIH. Her original diagnosis was made in [place] and she was managed by a public improvement inspector at [facility]. Her records were extensively [...] since approximately 2016. She moved to [place] in 2019.. Living with her two brothers. [...] for HCC screening, may time this with EGD/[place] Time spent with patient: 40 min Time spent reviewing records, documentin min Irene Lamar MD Section of Gastroenterology & Hepatology [address] [place] [address] Cc: Nicolasa Prince APRN SURGICAL PATHOLOGY REPORT ? Patient: PREMA SALGADO ?MR #: [id number] ?Submitted by: Elie Moreno MD FINAL DIAGNOSIS [...] the ductules cannot be definitively distinguished from [place] bile ducts. ??There is patchy periportal hepatocellular [...] had a prior liver biopsy reviewed at [facility] (see accession number [id number]), although the slides are not available for direct comparison at this time. ??However, based on the microscopic description, it appears that fibrosis may have progressed. documented in this encounter Procedure Notes * Irene Lamar MD - 02/10/2022 11:30 AM EDTAssociated Order(s): FIBROSCAN Procedure(s): FIBROSCAN Pre-Procedure Diagnose(s): Autoimmune hepatitis; Primary biliary cholangitis [facility] Liver Fibrosis Assessment Report Indication: AIH/PBC, assess for portal htn Performed by: HOWARD Rockwell Procedure: Vibration Controlled Transient Elastography (VCTE) or Fibroscan [place] Protocol: Patient's identity, procedure and site were [...] Procedure Name Priority Date/Time Associated Diagnosis Comments [id number] Routine 02/10/2022 11:30 AM EDT Autoimmune hepatitis [...] have questions, please contact the health career and transition teacher that requested your imaging first. ?Kashmir Lindsay, Staff Physician Electronically Signed Final Report ?? 08/17/2022 02:12 pm Narrative 08/17/2022 2:12 PM EDT Abdominal ? (Signed Final 08/17/2022 02:12 pm) PATIENT INFO: ID #: ? [id number] ?: ??[birth year] (71 yrs)(F) Name: ? PREMA SALGADO ?Visit Date: 08/17/2022 10:53 am PERFORMED BY: Attending: ?Neftali LUTHER, [place] Resident: ? Milagros LUTHER, James Curtis Performed By: ? Angelina Crystal RDMS Referred By: ?IRENE LAMAR Location: ? [place] SERVICE(S) PROVIDED: [facility] - Hepatology Protocol - Abdominal ?97908 Limited Survey Single Organ or Quadrant - [id number] INDICATIONS: cirrhosis, screen for hcc; assess for [...] 08/17/2022 02:12 pm) PATIENT INFO: ID #: [id number] : 54 (71 yrs)(F) Name: PREMA SALGADO Visit Date: 08/17/2022 10:53 am PERFORMED BY: Attending: Kashmir Lindsay MD Resident: James Linares MD Performed By: Angelina Crystal RDMS Referred By: IRENE LAMAR Location: [place] [facility]S) [facility] - Hepatology Protocol - Abdominal 90118 Limited Survey Single Organ or Quadrant - [id number] INDICATIONS: cirrhosis, screen for hcc; assess for [...] have questions, please contact the health career and transition teacher that requested your imaging first. [place] Lindsay, Staff Physician Electronically Signed Final Report 08/17/2022 02:12 pm Irene Lamar MD IMG US GEN ORDERABLE S * [id number] (02/10/2022 11:30 AM EDT) Narrative Irene Lamar MD - 02/10/2022 11:30 AM EDT Irene Lamar MD ? 02/11/2022 ??8:29 AM [facility] Liver Fibrosis Assessment Report Indication: ??AIH/PBC, assess for portal htn Performed by: ??HOWARD Rockwell Procedure: Vibration Controlled Transient Elastography (VCTE) or Fibroscan [place] Protocol: Patient's identity, procedure and site were [...] present documented in this encounter Care Teams Performance Solutions Specialist Relationship Specialty Start Date End Date Nicolasa Prince APRN [address] [place] [id number] PCP - General Family Medicine 01/08/21 documented as of this encounter
--- OUTSIDE RECORDS SUMMARY | 2024-03-31 01:35 | XMS_ITS | Encounter Summary ---
Author Organization [facility] [place] [address] Care Team Providers Care Business Functional Analyst Name Role Phone Nicolasa Prince APRN Primary Care Provider +1- [phone] Encounter Details Date Type Department Care Team (Late st Contact Info) Description 12/09/2022 Telephone [place] [phone] Mai Larson Social History Tobacco Use Types [...] - 12/09/2022 2:33 PM EDT Cookie Damian [id number] Diagnosis/Indication: 6 mo Please review patient chart [...] procedure? No You must have a responsible republican who will drive you to your procedure, stay on campus for the entire duration of your procedure, and drive you home from your procedure. Who will likely be your ems driver for the procedure? *Please Verify the [...] on filedocumented in this encounter Care Teams Business Functional Analyst Relationship Specialty Start Date End Date Nicolasa Prince APRN [address] [place] [address] PCP - General Family Medicine 01/08/21 documented as of this encounter
--- OUTSIDE RECORDS SUMMARY | 2024-03-31 01:35 | XMS_ITS | Encounter Summary ---
Author Organization [facility] [place] [address] Care Team Providers Care Electrical Appliance Repairer Name Role Phone Nicolasa Prince APRN Primary Care Provider +1- [phone] Reason for Visit * Auth/Cert (Routine) Specialty Diagnoses / Procedures Referred By Minh t Referred To Contact Diagnoses Encounter for screening for malignant neoplasm of colon 6 month Procedures PRO COLONOSCOPY, DIAGNOSTIC PRO COLONOSCOPY, BIOPSY PRO COLONOSCOPY, REMV LESN, SNARE PRO ANES, LWR INTESTINE, SCREENING COLONOSCOPY COLONOSCOPY,SCREENING (WRVU 3.26) Mateo Carlson MD [facility] [address] [facility] Referral ID Status Reason Start Date Expiration Date Visits Re quested Visits Authorized [id number] 1 1 Encounter Details Date Type Department Care Team (Latest Contact Info) Description 02/19/2023 12:41 PM EDT - 02/19/2023 3:29 PM EDT Hospital En[place] [address] Mateo Carlson MD [facility] [place] [address] Discharge Disposition: Home Social History Tobacco Use [...] occurs, please contact your Doctor. Please call [phone] before 8pm Mon-Fri with problems, questions or concerns. If you call after 8pm or on weekends, call the Hospital at [phone] and ask to speak to the Looper Fixer instrument mechanic weapons system and the xerox machine operator will contact that person for you. When should you call for help? Call [phone] anytime you think you may need emergency [...] cost to you. Content Version: 12.2 ?? [id number] [employer]. Care instructions adapted under license by [facility]. If you have questions about a medical condition or this instruction, always ask your healthcare professional. [employer] disclaims any warranty or liability for your [...] List Diagnosis Code Atherosclerotic heart disease of [place] coronary artery without angina pectoris I25.10 EXAM: [...] 02/19/2023 2:32 PM EDT Colonoscopy, Gauri Zavala ([id number]) 02/19/2023 1:54 PM EDT 6 month COLONOSCOPY Routine 02/19/2023 1:47 PM EDT documented in this encounter Results * Surgical Pathology Report (02/19/2023 2:32 PM EDT) Final Diagnosis [id number] ? Location: 4T; EA12; A The signing pathologist has (i) examined the relevant preparation(s) for the specimen(s) and (ii) rendered or confirmed the diagnosis(es). . ?Surgical Pathology DIAGNOSIS A - Ascending colon polyps 2mm, 1mm, resection: - ??Fragments of tubular adenoma. B - Rectal polyp 1mm, resection: - ??Hyperplastic polyp. CR-PX Electronically signed by: ?Per LUTHER, Arpit Verified: ??03/01/2023 16:31 ??Pathologist Performed at: ??-[facility] Dept. of Pathology, [place] [address] Swing Driver: Stefan Min MD, FCAP, ??CLIA Certificate: [id number] SPECIMEN(S) SUBMITTED A - ascending colon polyps [...] labeled B1. ??sdy 03/01/2023 4:31 PM EDT [facility] GI Biopsy 02/19/2023 2:32 PM EDT 02/19/2023 2:32 PM EDT GI Biopsy 02/19/2023 2:32 PM EDT 02/19/2023 2:32 PM EDT Mateo Carlson MD PATHOLOGY/CYTOLOGY [place] [address] [place] [address] * Specimen to Pathology (02/19/2023 2:32 PM EDT) AP Specimen 02/19/2023 2:32 PM EDT 02/19/2023 2:32 PM EDT Narrative [facility] - 02/19/2023 2:32 PM EDT Specimen requisition ordered. ??Separate Pathology report to follow Mateo Carlson MD PATHOLOGY/CYTOLOGY O MEENU Performing Organization Address [facility] [place] [address] * Specimen to Pathology (02/19/2023 2:32 PM EDT) AP Specimen 02/19/2023 2:32 PM EDT 02/19/2023 2:32 PM EDT Narrative [facility] - 02/19/2023 2:32 PM EDT Specimen requisition ordered. ??Separate Pathology report to follow Mateo Carlson MD PATHOLOGY/CYTOLOGY O MEENU Performing Organization Address [facility] [place] [address] * COLONOSCOPY (02/19/2023 1:47 PM EDT) COLONOSCOPY [facility] Endoscopy Procedure Date: 02/19/2023 1:47 PM ? Patient Name: Cookie Salgado ? Date of : 1950 ? Age: 72 ? Order #: [id number] ? Instrument Name: [id number] ? Procedure: ? Colonoscopy Indications: ? Follow-up [...] ? was evaluated using the BBPS ? ([place] Bowel Preparation Scale) ? with scores [...] Procedure Code(s): ? --- Professional --- ? 01828, Colonoscopy, flexible; with ? removal of tumor(s), polyp(s), or ? other lesion(s) by snare technique CPT copyright 2021 [employer]. All rights reserved. The codes documented in this report are preliminary and upon mental hygienist review may be revised to meet current compliance requirements. Attending Participation: ? I personally performed the entire procedure. ? Mateo Carlson MD _ Mateo Carlson MD 02/19/2023 2:36:53 PM This report has been signed electronically. Number of Addenda: 0 Note Initiated On: 02/19/2023 1:47 PM PROVATION 02/19/2023 1:47 PM EDT Nicolasa Prince DEAF INTERPRETER GENERAL SURGICAL O RDERABLES PROVATION documented in [...] RN) documented in this encounter Care Teams Electrical Appliance Repairer Relationship Specialty Start Date End Date Nicolasa Prince, DEAF INTERPRETER [address] [place] [address] PCP - General Family Medicine 01/08/21 documented as of this encounter
--- OUTSIDE RECORDS SUMMARY | 2024-03-31 01:35 | XMS_ITS | Encounter Summary ---
[facility] Organization [facility] [place] [address] Care Team Providers Care Flagger Name Role Phone Nicolasa Prince APRN Primary Care Provider +1- [phone] Encounter Details Date Type Department Care Team [...] on filedocumented in this encounter Care Teams Flagger Relationship Specialty Start Date End Date Nicolasa Prince APRN [address] [place] [address] PCP - General Family Medicine 01/08/21 documented as of this encounter
--- OUTSIDE RECORDS SUMMARY | 2024-03-31 01:35 | XMS_ITS | Encounter Summary ---
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
--- OUTSIDE RECORDS SUMMARY | 2024-03-31 01:35 | XMS_ITS | Encounter Summary ---
Author Organization [facility] [place] [address] Care Team Providers Care Senior Windows Administrator Name Role Phone Nicolasa Prince APRN Primary Care Provider +1- [phone] Encounter Details Date Type Department Care Team (Late st Contact Info) Description 01/22/2021 Telephone Cardiology at [address] [phone] Lorie Garza, JAY Social History Tobacco Use [...] filedocumented in this encounter Care Teams Senior Windows Administrator Relationship Specialty Start Date End Date Nicolasa Prince APRN [address] [place] [address] PCP - General Family Medicine 01/08/21 documented as of this encounter
--- OUTSIDE RECORDS SUMMARY | 2024-03-31 01:35 | XMS_ITS | Encounter Summary ---
Author Organization [facility] [place] [address] Care Team Providers Care Surgical Services Director Name Role Phone Nicolasa Prince APRN Primary Care Provider +1- [phone] Encounter Details Date Type Department Care Team [...] on filedocumented in this encounter Care Teams Surgical Services Director Relationship Specialty Start Date End Date Nicolasa Prince APRN [address] [place] [address] PCP - General Family Medicine 01/08/21 documented as of this encounter
--- OUTSIDE RECORDS SUMMARY | 2024-03-31 01:35 | XMS_ITS | Encounter Summary ---
Author Organization [facility] [place] [address] Care Team Providers Care Floor Layer Name Role Phone Nicolasa Prince YULIA Primary Care Provider +1- [phone] Reason for Visit * Auth/Cert (Routine) Specialty [...] GI ENDOSCOPY COLONOSCOPY, DIAGNOSTIC Elin Carlson MD [facility] [place] [place] [address] [facility] Referral ID Status Reason Start Date Expiration Date Visits Re quested Visits Authorized [id number] 1 1 Encounter Details Date Type Department Care Team (Late st Contact Info) Description 08/07/2022 2:00 PM EDT - 08/07/2022 3:00 PM EDT [place] [address] Elin Carlson MD [facility] [place] [address] EGD, UPPER GI ENDOSCOPY (WRVU 2.09) Social [...] the day after the test, use an vllh-aqg-ewerbqw spray or lozenges to numbyour throat. Warm [...] occurs, please contact your doctor. Please call [phone] before 8pm Mon-Fri with problems, questions, or concerns. If you call after 8pm or on weekends, call the Hospital at [phone] and ask for the Turf Manager non destructive testing engineer and the strap machine operator automatic will contact that person for you. When [...] more? You can view health information on [employer] your personal patient account. Log in or sign up today. Content Version: 12.2 ?? [id number] [employer]. Care instructions adapted under license by [facility]. If you have questions about a medical condition or this instruction, always ask your healthcare professional. [employer] disclaims any warranty or liability for your [...] Diagnosis Code ??? Atherosclerotic heart disease of [place] coronary artery without angina pectoris I25.10 EXAM: [...] Colonoscopy, Flexible W Control Bleeding, Any Method (74823) 08/07/2022 2:21 PM EDT Hepatic cirrhosis, unspecified hepatic cirrhosis type, unspecified whether ascites present Screening for colon cancer Colonoscpy, Flex, W/Dir Submuc Inject (78553) 08/07/2022 2:21 PM EDT Hepatic cirrhosis, unspecified hepatic cirrhosis type, unspecified whether ascites present Screening for colon cancer Colonoscopy, Remv Lesn, Snare (11296) 08/07/2022 2:21 PM EDT Hepatic cirrhosis, unspecified hepatic cirrhosis type, unspecified whether ascites present Screening for colon cancer Upper GI Endoscopy, Diagnostic (37737) 08/07/2022 2:21 PM EDT Hepatic cirrhosis, unspecified hepatic cirrhosis type, unspecified whether ascites present Screening for colon cancer UPPER GI ENDOSCOPY Routine 08/07/2022 2: 10 PM EDT COLONOSCOPY Routine 08/07/2022 2:10 PM EDT documented in this encounter Results * Specimen to Pathology (08/07/2022 3:25 PM EDT) AP Specimen 08/07/2022 3:25 PM EDT 08/07/2022 3:25 PM EDT Narrative [facility] - 08/07/2022 3:25 PM EDT Specimen requisition ordered. ??Separate Pathology report to follow Elin Carlson MD PATHOLOGY/CYTOLOGY O MEENU [facility] [place] [address] * Specimen to Pathology (08/07/2022 3:25 PM EDT) AP Specimen 08/07/2022 3:25 PM EDT 08/07/2022 3:25 PM EDT Narrative [facility] - 08/07/2022 3:25 PM EDT Specimen requisition ordered. ??Separate Pathology report to follow Elin Carlson MD PATHOLOGY/[place] [address] * Surgical Pathology Report (08/07/2022 2:57 PM EDT) Final Diagnosis [id number] ? Location: 4T; EA12; A The signing [...] ??08/26/2022 16:10 ??Pathologist Performed at: ??-[facility] Dept. of [place]ology, [place] [address] Cigar Head Puncher: Stefan Min MD, FCAP, ??CLIA Certificate: [id number] SPECIMEN(S) SUBMITTED A - transverse colon polyp, [...] labeled B1-B2. ??shb 08/26/2022 4:10 PM EDT [facility] GI Biopsy 08/07/2022 2:57 PM EDT 08/07/2022 2:57 PM EDT GI Biopsy 08/07/2022 2:57 PM EDT 08/07/2022 2:57 PM EDT Elin Carlson MD PATHOLOGY/CYTOLOGY O RDMARANDABLES [facility] [place] [address] ELIN [facility] [place] [address] * UPPER GI ENDOSCOPY (08/07/2022 2:10 PM EDT) UPPER GI ENDOSCOPY [facility] Endoscopy Procedure Date: 08/07/2022 2:10 PM ? Patient Name: Cookie Salgado ? N: [id number] ? Date of : 1950 ? Age: 71 ? Order #: [id number] ? Instrument Name: [id number] ? Procedure: ? Upper GI endoscopy Indications: [...] personally performed the entire procedure. ? Elin Carlosn MD Elin Carlson MD 08/07/2022 2:39:13 PM [...] 1950 ? Age: 71 ? Order #: [id number] ? Instrument Name: [id number] ? Procedure: ? Colonoscopy Indications: ? Screening [...] ? was evaluated using the BBPS ? ([place] Bowel Preparation Scale) ? with scores of: [...] Procedure Code(s): ? --- Professional --- ? 77417, Colonoscopy, flexible; with ? endoscopic mucosal resection ? 34981, 59, Colonoscopy, flexible; ? with removal of tumor(s), polyp(s), ? or other lesion(s) by snare ? technique CPT copyright 2020 [employer]. All rights reserved. The codes documented in this report are preliminary and upon inspector receiving review may be revised to meet current compliance requirements. Attending Participation: ? I personally performed the entire procedure. ? Elin Carlson MD _ Elin Carlson MD 08/07/2022 3:40:14 PM This report has been signed electronically. Number of Addenda: 0 Note Initiated On: 08/07/2022 2:10 PM PROVATION 08/07/2022 2:10 PM EDT Nicolasa Prince SAUSAGE MAKER GENERAL SURGICAL O RDERABLES PROVATION documented in [...] RN) documented in this encounter Care Teams Floor Layer Relationship Specialty Start Date End Date Nicolasa Prince, YULIA [address] [address] PCP - General Family Medicine 01/08/21 documented as of this encounter
--- OUTSIDE RECORDS SUMMARY | 2024-03-31 01:35 | XMS_ITS | Encounter Summary ---
Author Organization [facility] [address] Care Team Providers Care Refrigerator Repair Technician Name Role Phone Nicolasa Prince APRN Primary Care Provider +1- [phone] Encounter Details Date Type Department Care Team (Late st Contact Info) Description 10/29/2021 Orders [place] [address] Irene Lara MD [facility] [place] [address] Type 2 diabetes mellitus with other specified complication, unspecified whether press tender long goods insulin use Social History Tobacco Use Types [...] (ABNORMAL) Hemoglobin A1c (02/10/2022 11:06 AM EDT) [facility] Hemoglobin A1c 7.0(H) 4.3 - 5.6 % [facility] Comment: Reference Range: 4.3 [...] Mellitus, Diabetes Care 2013; 36: Suppl. 1, S69-02 Estimated Average Glucose 155 mg/dL [facility] Comment: eAG [...] into estimated average glucose values. ??Diabetes Care 2008:31(8):5348-7974. Blood 02/10/2022 11:0 6 AM EDT 02/10/2022 11:10 AM EDT Narrative Resulting Agency Comment Spec In Lab Irene Lara MD CHEMISTRY ORDERABLES [facility] [place] [address] documented in this encounter Visit Diagnoses Diagnosis Type 2 diabetes mellitus with other specified complication, unspecified whether press tender long goods insulin use documented in this encounter Care Teams Refrigerator Repair Technician Relationship Specialty Start Date End Date Nicolasa Prince APRN [address] [place] [address] PCP - General Family Medicine 01/08/21 documented as of this encounter
--- OUTSIDE RECORDS SUMMARY | 2024-03-31 01:35 | XMS_ITS | Encounter Summary ---
Author Organization [facility] [place] [address] Care Team Providers Care School Cafeteria Cook Name Role Phone Nicolasa Prince APRN Primary Care Provider +1- [phone] Reason for Visit * Reason Comments Medication Refill Encounter Details Date Type Department Care Team (Late st Contact Info) Description 10/15/2022 Refill [place] [address] Irene Lara MD [facility] [place] [address] Autoimmune hepatitis Social History Tobacco Use Types [...] hepatitis documented in this encounter Care Teams School Cafeteria Cook Relationship Specialty Start Date End Date Nicolasa Prince APRN [address] [place] [address] PCP - General Family Medicine 01/08/21 documented as of this encounter
--- OUTSIDE RECORDS SUMMARY | 2024-03-31 01:35 | XMS_ITS | Encounter Summary ---
Author Organization [facility] [place] [address] Care Team Providers Care Compressor Technician Name Role Phone Nicolasa Prince APRN Primary Care Provider +1- [phone] Encounter Details Date Type Department Care Team (Late st Contact Info) Description 06/09/2022 Telephone [place] [address] Mai Larson Social History Tobacco Use Types Packs/Day Years Used Date Smoking Tobacco: Former Smokeless Tobacco: Never Sex and Gender Information Value Date Recorded Sex Assigned at Not on file Gender Identity Not on file Sexual Orientation Not on file documented as of this encounter Miscellaneous Notes * Telephone Encounter - Mai Larson - 06/09/2022 10:01 AM EST Cookie Salgado [id number] Diagnosis/Indication: cirrhosis screen for varices, screening colonoscopy [...] Upper Endoscopy & Colonoscopy before? Yes: Date [facility], 5.5 years ago, doesn't remember what [...] your procedure. Who will likely be your delivery driver/customer service for the procedure? *Please Verify the height [...] on filedocumented in this encounter Care Teams Compressor Technician Relationship Specialty Start Date End Date Nicolasa Prince APRN [address] [place] [address] PCP - General Family Medicine 01/08/21 documented as of this encounter
--- OUTSIDE RECORDS SUMMARY | 2024-03-31 01:35 | XMS_ITS | Encounter Summary ---
Author Organization [facility] [place] [address] Care Team Providers Care Facing Baster Jumpbasting Name Role Phone Nicolasa Prince APRN Primary Care Provider +1- [phone] Encounter Details Date Type Department Care Team (Late st Contact Info) Description 12/25/2022 External Results [place] [address] [facility] [place] [address] Social History Tobacco Use Types Packs/Day Years [...] on filedocumented in this encounter Care Teams Facing Baster Jumpbasting Relationship Specialty Start Date End Date Nicolasa Prince APRN [address] [place] [address] PCP - General Family Medicine 01/08/21 documented as of this encounter
--- OUTSIDE RECORDS SUMMARY | 2024-03-31 01:35 | XMS_ITS | Encounter Summary ---
Author Organization [facility] [place] [address] Care Team Providers Care Hotel Manager Name Role Phone Nicolasa Prince APRN Primary Care Provider +1- [phone] Encounter Details Date Type Department Care Team (Late st Contact Info) Description 01/27/2023 External Results [place] [address] Irene Lara MD [facility] [place] [address] Social History Tobacco Use Types Packs/Day Years [...] on filedocumented in this encounter Care Teams Hotel Manager Relationship Specialty Start Date End Date Nicolasa Prince APRN [address] [place] [address] PCP - General Family Medicine 01/08/21 documented as of this encounter
--- OUTSIDE RECORDS SUMMARY | 2024-03-31 01:35 | XMS_ITS | Encounter Summary ---
Author Organization [facility] Address [facility] [place] [address] Care Team Providers Care Tool And Gauge Inspector Name Role Phone Nicolasa Prince APRN Primary Care Provider +1- [phone] Encounter Details Date Type Department Care Team (Late st Contact Info) Description 01/28/2021 Orders Only Cardiology at [address] [address] Kylah Arellano APRN [facility] [place] [address] Atherosclerosis of [place] coronary artery without angina pectoris, unspecified whether [place] or transplanted heart Social History Tobacco Use [...] this encounter Visit Diagnoses Diagnosis Atherosclerosis of [place] coronary artery without angina pectoris, unspecified whether [place] or transplanted heart documented in this encounter Care Teams Tool And Gauge Inspector Relationship Specialty Start Date End Date Nicolasa Prince APRN [address] [place] [address] PCP - General Family Medicine 01/08/21 documented as of this encounter
--- OUTSIDE RECORDS SUMMARY | 2024-03-31 01:35 | XMS_ITS | Encounter Summary ---
Author Organization [facility] [place] [address] Care Team Providers Care First Aid Attendant Name Role Phone Nicolasa Prince APRN Primary Care Provider +1- [phone] Encounter Details Date Type Department Care Team (Late st Contact Info) Description 07/22/2021 1:30 PM EDT Office [place] [address] Carolynn Lamar MD [facility] [place] [address] Primary biliary cholangitis; Type 2 diabetes mellitus [...] [place] and she was managed by a needle setter at [facility]. Her records were extensively reviewed today in care everywhere. She first started seeing Dr. Yasmin Woosdon in 2012. At that time she had [...] been normal sinceapproximately 2017. She moved to [place] about a year ago. She is living [...] MD Section of Gastroenterology & Hepatology [address] [place] [address] Cc: Nicolasa Prince APRN SURGICAL PATHOLOGY REPORT ? Patient: PREMA SALGADO ?MR #: [id number] ?Submitted by: Elie Moreno MD FINAL DIAGNOSIS [...] the ductules cannot be definitively distinguished from [place] bile ducts. ??There is patchy periportal hepatocellular [...] a prior liver biopsy reviewed at [facility] (see accession number [id number]), although the slides are not available for [...] signed by: Fiordaliza Fabian MD, [facility] ([phone]), at 02/10/2022 10:32 AM Thank you for letting us participate in the care of this patient. If you are a health care provider and have any questions regarding this report, please contact the number above. For patients who have questions, please contact the health direct care worker that requested your imaging first. ? Fiordaliza Fabian, Staff Physician Electronically Signed Final Report ?? 02/10/2022 10:39 am Narrative 02/10/2022 10:39 AM EDT Abdominal ? (Signed Final 02/10/2022 10:39 am) PATIENT INFO: ID #: ? [id number] ?: ??[birth year] (71 yrs)(F) Name: ? PREMA SALGADO ?Visit Date: 02/10/2022 10:18 am PERFORMED BY: Performed By: ? Sarahi lFores RDMS Attending: ?Caren LUTHER, Fiordaliza Prado Referred By: ?CAROLYNN HENSLEYR Location: ? [place] [facility] Hep[facility] Protocol - Abdominal ?35070 Limited Survey Single Organ or Quadrant - [id number] INDICATIONS: Cirrhosis, screen for HCC COMPARISON: MRI abdomen 07/22/2021 ------ LIVER: ------ Right Lobe Length: ?? 20.7 ?? cm Echogenicity/Echotexture: ?? Markedly heterogeneous ? parenchyma with capsular ? nodularity Portal Veins: ?Main PV hepatopetal where interrogated Comment: ?No visualized focal lesion. GALLBLADDER: Cholelithiasis: ?No stones visualized Wall Thickness: ?Normal wall thickness Focal Tenderness: ?Negative sonographic Floers's sign BILIARY TRACT: Intrahepatic Ducts: ?? Normal Extrahepatic Ducts: ?? Normal where seen Common Duct Size: ? 2.0 ? mm FLUID COLLECTIONS: Ascites not present on 4 quadrant evaluation. Procedure Note Fiordaliza Fabian MD - 02/10/2022 Abdominal (Signed Final 02/10/2022 10:39 am) PATIENT INFO: ID #: [id number] : [birth year] (71 yrs)(F) Name: PREMA SALGADO Visit Date: 02/10/2022 10:18 am PERFORMED BY: Performed By: Sarahi Flores RDMS Attending: Fiordaliza Fabian MD Referred By: CAROLYNN LAMAR Location: [place] SERVICE(S) PROVIDED: [facility] - Hepatology Protocol - Abdominal 84863 Limited Survey Single Organ or Quadrant - [id number] INDICATIONS: Cirrhosis, screen for HCC COMPARISON: MRI [...] care worker that requested your imaging first. Fiordaliza Fabian, Staff Physician Electronically Signed Final Report 02/10/2022 10:39 am Carolynn Lamar MD IMG US GEN ORDERABLE S * Prothrombin Time (07/22/2021 11:40 AM EDT) Prothrombin Time 11.6 9.4 - 12.[address] [facility] International Normalization Ratio 1.[address] [facility] Comment: An [...] MD HEMATOLOGY ORDERABLE S Performing Organization Address [facility] [place]/[facility] Co de Phone Number [facility] [place] [address] * AFP tumor marker (07/22/2021 11:40 AM EDT) Alpha Fetoprotein 3.4 <=8.3 ng/mL [facility] Blood 07/22/2021 11:4 0 AM EDT 07/22/2021 11:55 AM EDT Narrative Resulting Agency Comment Spec In Lab Carolynn Lamar MD CHEMISTRY ORDERABLES Performing Organization Address [facility] [place]/ZIP Co de Phone Number [facility] [place] [address] * (ABNORMAL) Comprehensive metabolic panel (non-fasting) (07/22/2021 11:40 AM EDT) Glucose 156 65 - 199 mg/dL [facility] Comment:Diabetes: >=200 mg/d L plus symptoms Blood Urea Nitrogen 23(H) 8 - 18 mg/dL [facility] Creatinine 0.88 0.70 - 1.20 mg/dL [facility] Sodium 135 135 - 145 mmol/L [facility] Potassium 4.4 3.5 - 5.0 mmol/L [facility] Comment: Please note: ??Patients with WBC >100,000 may have falsely elevated Potassium levels. ??For accurate Potassium quantification in these patients send serum separator tube (gold top) for subsequent determinations. ??Contact the Clinical Chemistry Laboratory if there are any questions. Chloride 104 98 - 107 mmol/L [facility] Carbon Dioxide 18(L) 22 - 31 mmol/L [facility] Anion Gap 13 5 - 15 mmol/L [facility] Calcium 10.0 8.5 - 10.5 mg/dL [facility] Protein, Total 7.8 6.1 - 8.0 g/dL [facility] Albumin 4.5 3.2 - 5.2 g/dL [facility] Aspartate Aminotransferase 29 0 - 30 unit/L [facility] Alanine Aminotransferase 26 0 - 30 unit/L [facility] Alkaline Phosphatase 89 35 - 105 unit/L [facility] Bilirubin, Total 0.7 0.2 - 1.3 mg/dL [facility] Est Glomerular Filtration Rate 68 >=60 mL/min/1. 73 m?? [facility] Comment: This patient? s estimated [...] Lamar MD CHEMISTRY ORDERABLES Performing Organization Address City/[facility] [place]/[facility] Co de Phone Number [facility] [place] [address] documented in this encounter Visit Diagnoses Diagnosis Primary biliary cholangitis Type 2 diabetes mellitus without complication, without long-term current use of insulin Hepatic cirrhosis, unspecified hepatic cirrhosis type, unspecified whether ascites present Primary biliary cholangitis Hepatic cirrhosis, unspecified hepatic cirrhosis type, unspecified whether ascites present documented in this encounter Care Teams First Aid Attendant Relationship Specialty Start Date End Date Nicolasa Prince APRN [address] [place] [address] PCP - General Family Medicine 01/08/21 documented as of this encounter
--- OUTSIDE RECORDS SUMMARY | 2024-03-31 01:35 | XMS_ITS | Encounter Summary ---
Author Organization [facility] Address [facility] [place] [address] Care Team Providers Care Continuous Process Coffee Roaster Name Role Phone Nicolasa Prince APRN Primary Care Provider +1- [phone] Encounter Details Date Type Department Care Team (Late st Contact Info) Description 12/02/2022 Telephone [place] [phone] Irene Lara MD [facility] [place] [address] Social History Tobacco Use Types Packs/Day Years [...] Lara MD Section of Gastroenterology & Hepatology [address] [place] [address] documented in this encounter Plan of Treatment Not on file documented as of this encounter Visit Diagnoses Not on filedocumented in this encounter Care Teams Continuous Process Coffee Roaster Relationship Specialty Start Date End Date Nicolasa Prince APRN [address] [place] [address] PCP - General Family Medicine 01/08/21 documented as of this encounter
--- OUTSIDE RECORDS SUMMARY | 2024-03-31 01:35 | XMS_ITS | Encounter Summary ---
Author Organization [facility] [place] [address] Care Team Providers Care Circuit Tester Name Role Phone Nicolasa Prince APRN Primary Care Provider +1- [phone] Encounter Details Date Type Department Care Team (Late st Contact Info) Description 10/14/2021 External Results [place] [address] Irene Lara MD [facility] [place] [address] Social History Tobacco Use Types Packs/Day Years [...] on filedocumented in this encounter Care Teams Circuit Tester Relationship Specialty Start Date End Date Nicolasa Prince APRN [address] [place], [place] [address] PCP - General Family Medicine 01/08/21 documented as of this encounter
--- OUTSIDE RECORDS SUMMARY | 2024-03-31 01:35 | XMS_ITS | Encounter Summary ---
Author Organization [facility] Address [facility] [place] [address] Care Team Providers Care Aerobics Instructor Name Role Phone Nicolasa Prince YULIA Primary Care Provider +1- [phone] Reason for Visit * Auth/Cert (Routine) Specialty [...] GI ENDOSCOPY COLONOSCOPY, DIAGNOSTIC Elin Carlson MD [facility] [place] [address] [facility] Referral ID Status Reason Start Date Expiration Date Visits Re quested Visits Authorized [id number] 1 1 Encounter Details Date Type Department Care Team (Latest Contact Info) Description 08/07/2022 12:50 PM EDT - 08/07/2022 4:14 PM EDT Hospital Encounter [place] [address] Elin Carlson MD [facility] [place] [address] Discharge Disposition: Home Social History Tobacco Use [...] the day after the test, use an qhcv-bgb-bwzcgms spray or lozenges to numbyour throat. Warm [...] occurs, please contact your doctor. Please call [phone] before 8pm Mon-Fri with problems, questions, or concerns. If you call after 8pm or on weekends, call the Hospital at [phone] and ask for the [employer] patient transportation driver and the topper press operator automatic will contact that person for [...] more? You can view health information on [employer], your personal patient account. Log in or sign up today. Content Version: 12.2 ?? [id number] [employer]. Care instructions adapted under license by [facility]. If you have questions about a medical condition or this instruction, always ask your healthcare professional. [employer] disclaims any warranty or liability for your [...] as of this encounter H&P Notes * Elni Carlson MD - 08/07/2022 2:20 PM EDT Patient Name: Cookie Salgado Patient Age: 71 y.o. Birthdate: 1950 Admit date: 08/07/2022 Attending Physician: Elin Carlson MD Gastroenterology and Hepatology Pre-Procedure History and Physical Exam Procedure: EGD: Colonoscopy: Indication: Cirrhosis, screen for varices, average risk screening Patient Active Problem List Diagnosis Code ??? Atherosclerotic heart disease of [place] coronary artery without angina pectoris I25.10 EXAM: [...] Colonoscopy, Flexible W Control Bleeding, Any Method (63520) 08/07/2022 2:21 PM EDT Hepatic cirrhosis, unspecified hepatic cirrhosis type, unspecified whether ascites present Screening for colon cancer Colonoscpy, Flex, W/Dir Submuc Inject (76632) 08/07/2022 2:21 PM EDT Hepatic cirrhosis, unspecified hepatic cirrhosis type, unspecified whether ascites present Screening for colon cancer Colonoscopy, Robert Ortiz, Gauri (44466) 08/07/2022 2:21 PM EDT Hepatic cirrhosis, unspecified hepatic cirrhosis type, unspecified whether ascites present Screening for colon cancer Upper GI Endoscopy, Diagnostic (00667) 08/07/2022 2:21 PM EDT Hepatic cirrhosis, unspecified [...] PATHOLOGY/CYTOLOGY O MEENU Performing Organization Address [facility] [place] [address] * Specimen to Pathology (08/07/2022 3:25 PM EDT) AP Specimen 08/07/2022 3:25 PM EDT 08/07/2022 3:25 PM EDT Narrative [facility] - 08/07/2022 3:25 PM EDT Specimen requisition ordered. ??Separate Pathology report to follow Elin Carlson MD PATHOLOGY/CYTOLOGY O RDMILLIE Performing Organization Address City/[facility]/[place] [address] * Surgical Pathology Report (08/07/2022 2:57 PM EDT) Final Diagnosis [id number] ? Location: 4T; EA12; A The signing [...] Arpit Verified: ??08/26/2022 16:10 ??Pathologist Performed at: ??-[facility] Dept. of Pathology, [place] [address] Vp Celebrity Services: Stefan Min MD, FCAP, ??CLIA Certificate: [id number] SPECIMEN(S) SUBMITTED A - transverse colon polyp, [...] labeled B1-B2. ??shb 08/26/2022 4:10 PM EDT [facility] GI Biopsy 08/07/2022 2:57 PM EDT 08/07/2022 2:57 PM EDT GI Biopsy 08/07/2022 2:57 PM EDT 08/07/2022 2:57 PM EDT Elin Carlson MD PATHOLOGY/CYTOLOGY O MEENU Performing Organization Address [facility]/State/ZIP Co de Phone Number [facility] [place] [address] [facility] [place] [address] * UPPER GI ENDOSCOPY (08/07/2022 2:10 PM EDT) Pathologist [facility] UPPER GI ENDOSCOPY [facility] Endoscopy Procedure Date: 08/07/2022 2:10 PM ? Patient Name: Cookie Salgado ? N: [id number] ? Date of : 1950 ? Age: 71 ? Order #: [id number] ? Instrument Name: EG-[id number]- [id number] ? Procedure: ? Upper GI endoscopy Indications: [...] * COLONOSCOPY (08/07/2022 2:10 PM EDT) COLONOSCOPY [facility] Endoscopy Procedure Date: 08/07/2022 2:10 PM ? Patient Name: Cookie Salgado ? N: [id number] ? Date of : 1950 ? Age: 71 ? Order #: [id number] ? Instrument Name: [id number]- [id number] ? Procedure: ? Colonoscopy Indications: ? Screening for colorectal malignant ? neoplasm Providers: ? Elni Carlson MD, Leticia Bolton ? Damon Ca [...] ? was evaluated using the BBPS ? ([place] Bowel Preparation Scale) ? with scores of: [...] Procedure Code(s): ? --- Professional --- ? 64673, Colonoscopy, flexible; with ? endoscopic mucosal resection ? 05897, 59, Colonoscopy, flexible; ? with removal of tumor(s), polyp(s), ? or other lesion(s) by snare ? technique CPT copyright 2020 [employer]. All rights reserved. The codes documented in this report are preliminary and upon pre coder review may be revised to meet [...] RN) documented in this encounter Care Teams Aerobics Instructor Relationship Specialty Start Date End Date Nicolasa Prince, [address] [place] [address] PCP - General Family Medicine 01/08/21 documented as of this encounter
--- OUTSIDE RECORDS SUMMARY | 2024-03-31 01:35 | XMS_ITS | Encounter Summary ---
Author Organization [facility] [place] [address] Care Team Providers Care Sap [place]riba Consultant Name Role Phone Nicolasa Prince APRN Primary Care Provider +1- [phone] Encounter Details Date Type Department Care Team (Late st Contact Info) Description 11/02/2022 External Results Gastroenterology at [facility] [place] [address] Irene Lara MD [facility] [place] [address] Social History Tobacco Use Types Packs/Day Years [...] on filedocumented in this encounter Care Teams Sap [place]rib[place] Consultant Relationship Specialty Start Date End Date Nicolasa Prince APRN [address] [place] [address] PCP - General Family Medicine 01/08/21 documented as of this encounter
--- OUTSIDE RECORDS SUMMARY | 2024-03-31 01:35 | XMS_ITS | Encounter Summary ---
[place] [address] Care Team Providers Care Oreman Name Role Phone Nicolasa Prince YULIA Primary Care Provider +1- [phone] Encounter Details Date Type Department Care Team (Latest Contact Info) Description 02/10/2022 10:15 AM EDT Laboratory Appointment Lab [address] [place] [address] Primary biliary cholangitis; Type 2 diabetes mellitus with other specified complication, unspecified whether intermediate insulin use Social History Tobacco Use Types [...] with other specified complication, unspecified whether terminal make up operator insulin use HC VENIPUNCTURE Routine 02/10/2022 11:06 AM EDT Primary biliary cholangitis documented in this encounter Results * (ABNORMAL) Differential, Automated (02/10/2022 11:06 AM EDT) Neutrophil % 70.8 % [facility] Neutrophil Absolute 2.95 1.70 - 6.10 x10(3)/[facility] Lymph % 18.2 % [facility] Lymphocytes Abs 0.8(L) 0.9 - 3.2 x10(3)/[facility] Monocyte % 9.1 % [facility] Monocyte Abs 0.4 0.3 - 0.9 x10(3)/[facility] Eos % 1.2 % [facility] Eosinophils Abs 0.0 0.0 - 0.4 x10(3)/[facility] Basophil % 0.5 % [facility] Baso Absolute 0.0 0.0 - 0.1 x10(3)/[facility] Immature Gran % 0.20 % [...] Gran Absolute 0.01 0.00 - 0.04 x10(3)/[facility] Blood Venous Draw / Unknown 02/10/2022 11:06 AM EDT 02/10/2022 12:06 PM EDT Narrative Resulting Agency Comment Spec In Lab Irene Lara MD HEMATOLOGY ORDERABLE S [facility] [place] [place] [address] * (ABNORMAL) Hemogram (02/10/2022 11:06 AM EDT) [facility] White Blood Cell 4.2 4.0 - 9.5 x10(3)/[facility] Red Blood Cell 5.02 4.00 [...] [facility] [place] [place] [address] * (ABNORMAL) Hemoglobin A1c (02/10/2022 11:06 AM [...] Mellitus, Diabetes Care 2013; 36: Suppl. 1, S67-12 Estimated Average Glucose 155 mg/dL [facility] [...] are available on the ADA website. Herman REDE, Kellie J, Ann R, et al. ??Translating the A1C assay into estimated average glucose values. ??Diabetes Care 2008:31(8):3535-3866. Blood 02/10/2022 11:0 6 AM EDT 02/10/2022 11:10 AM EDT Narrative Resulting Agency Comment Spec In Lab Irene Lara MD CHEMISTRY ORDERABLES [facility] [place] [place] [address] * Hepatic Function Panel (02/10/2022 11:06 AM [...] [facility] [place] [address] documented in this encounter Visit Diagnoses Diagnosis Primary biliary cholangitis Type 2 diabetes mellitus with other specified complication, unspecified whether terminal make up operator insulin use documented in this encounter Care Teams Oreman Relationship Specialty Start Date End Date Nicolasa Prince APRN [address] [place] [address] PCP - General Family Medicine 01/08/21 documented as of this encounter
--- OUTSIDE RECORDS SUMMARY | 2024-03-31 01:35 | XMS_ITS | Encounter Summary ---
Author Organization [facility] [place] [address] Care Team Providers Care Ship Superintendent Name Role Phone Nicolasa Prince APRN Primary Care Provider +1- [phone] Encounter Details Date Type Department Care Team (Late st Contact Info) Description 11/30/2022 External Results [place] [address] Irene Lara MD [facility] [place] [address] Social History Tobacco Use Types Packs/Day Years [...] filedocumented in this encounter Care Teams Ship Superintendent Relationship Specialty Start Date End Date Nicolasa Prince APRN [address] [place] [address] PCP - General Family Medicine 01/08/21 documented as of this encounter
[2024-03-31 08:16] LABS: Absolute Basophil Count 0.02 10^3/uL (0.0-0.2); Absolute Eosinophil Count 0.04 10^3/uL (0.0-0.7); Absolute Lymphocyte Count 0.92 10^3/uL (1.2-3.4); Absolute Monocyte Count 0.34 10^3/uL (0.1-0.8); Absolute Neutrophil Count 1.81 10^3/uL (1.2-6.7); Basophils % 0.6 %; Eosinophils % 1.3 %; HCT 47.6 % (36.0-46.0); HGB 15.9 g/dL (11.2-15.7); Lymphocytes % 29.4 %; MCH 31.5 pg (27.0-33.0); MCHC 33.4 % (32.0-36.0); MCV 94 fL (80-95); MPV 10.4 fL (8.0-11.0); Monocytes % 10.9 %; Neutrophils % 57.8 %; Platelet Count 126 10^3/uL (130-400); RBC 5.04 10^6/uL (3.93-5.22); RDW 13.1 % (11.7-14.6); RDW-SD 45.6 fL; WBC 3.13 10^3/uL (4.4-10.8)
[2024-03-31 08:21] LABS: INR 1.1 (0.9-1.1); Prothrombin Time 10.7 sec (9.1-11.1)
[2024-03-31 08:54] LABS: ALT 22 U/L (14-59); AST 22 U/L (15-37); Albumin 3.6 g/dL (3.4-5.0); Alkaline Phosphatase 68 U/L (46-116); Anion Gap 9.5 mmol/L (3-11); BUN 32 mg/dL (7-18); Bilirubin, Total 0.71 mg/dL (0.2-1.0); CO2 22.5 mmol/L (21.0-32.0); CREATININE 1.1 mg/dL (0.55-1.02); Calcium 9.7 mg/dL (8.5-10.1); Chloride 109 mmol/L (98-107); Estimated GFR 53.72 (mL/min/1.73m2); Glucose 126 mg/dL (74-106); Potassium 4.4 mmol/L (3.5-5.1); Sodium 141 mmol/L (136-145)
== END 2024-03-31 01:34 | disposition home or self-care (01) ==
PROVIDERS: PCP Nurse Practitioner Family; Visit Provider Internal Medicine Gastroenterology
DX: K74.3 Primary biliary cirrhosis (principal); K74.60 Unspecified cirrhosis of liver
CPT/HCPCS: 36415; 80053; 82105; 85025; 85610

== ENCOUNTER → 2024-06-09 09:00 | Outpatient (BNVA) | payer MEDICARE, SELFPAY | PROVIDERS: PCP Nurse Practitioner Family; Visit Provider Internal Medicine Cardiovascular Disease | DX: I25.10 Atherosclerotic heart disease of native coronary artery without angina pectoris (principal) | CPT/HCPCS: 99213 ==

== ENCOUNTER 2024-06-12 02:14 | Outpatient (CLI) | payer MEDICARE, SELFPAY ==
--- OUTSIDE RECORDS SUMMARY | 2024-05-26 00:53 | XMS_ITS | Encounter Summary ---
Author Organization [facility] Address [facility] [place] [address] Care Team Providers Care Bit Grinder Name Role Phone Nicolasa Prince YULIA Primary Care Provider +1- [phone] Encounter Details Date Type Department Care Team (Latest Contact Info) Description 09/28/2023 10:06 AM EDT - 09/28/2023 11:59 PM EDT Hospital En[place] [address] Carolynn Lamar MD [facility] [place] [address] Biliary cirrhosis Discharge Disposition: Home Social History [...] as of this encounter Plan of Treatment Upcoming Encounters Date Type Department Care Team (Late st Contact Info) Description 08/14/2024 12:10 PM EDT [place] [address] Carolynn Lamar MD [facility] [place] [address] documented as of this encounter Procedures Procedure Name Priority Date/Time Associated Diagnosis Comments US ABDOMEN LIMITED HEPATOLOGY PROTOCOL Routine 09/28/2023 10:54 AM EDT Biliary cirrhosis documented in this encounter Results * US Abdomen Limited Hepatology Protocol (09/28/2023 10:54 AM EDT) WORKSTATION ID [id number] RAD Anatomical Region Laterality Modality Abdomen Ultrasound [...] have questions, please contact the health geriatric personal care aide that requested your imaging first. ?Fiordaliza Fabian, Hai Sales Development Manager Electronically Signed Final Report ?? 09/28/2023 11:41 am Narrative 09/28/2023 11:42 AM EDT Abdominal ? (Signed Final 09/28/2023 11:41 am) PATIENT INFO: ID #: ? [id number] ?: ??[birth year] (72 yrs)(F) Name: ? PREMA SALGADO ?Visit Date: 09/28/2023 10:34 am PERFORMED BY: Attending: ?Caren LUTHER, Fiordaliza Prado Resident: ? Madhavi Thomas MD Performed By: ? Joanna Bronson RDMS Referred By: ?CAROLYNN LAMAR Location: ? [place] SERVICE(S) PROVIDED: [facility] - Hepatology Protocol - Abdominal ?96344 Limited Survey Single Organ or Quadrant - [id number] INDICATIONS: cirrhosis, screen for hcc COMPARISON: US [...] 09/28/2023 11:41 am) PATIENT INFO: ID #: [id number] : [birth year] (72 yrs)(F) Name: PREMA SALGADO Visit Date: 09/28/2023 10:34 am PERFORMED BY: Attending: Fiordaliza Fabian MD Resident: Madhavi Thomas MD Performed By: Joanna Bronson RDMS Referred By: CAROLYNN LAMAR Location: [place] SERVICE(S) PROVIDED: [facility] - Hepatology Protocol - Abdominal 44749 Limited Survey Single Organ or Quadrant - [id number] INDICATIONS: cirrhosis, screen for hcc COMPARISON: US [...] have questions, please contact the health geriatric personal care aide that requested your imaging first. Fiordaliza Fabian, [facility] Sales Development Manager Electronically Signed Final Report 09/28/2023 11:41 am Carolynn Lamar MD IMG US GEN ORDERABLE S documented in this encounter Visit Diagnoses Diagnosis Biliary cirrhosis documented in this encounter Care Teams Bit Grinder Relationship Specialty Start Date End Date Nicolasa Prince APRN [address] [place] [address] PCP - General Family Medicine 01/08/21 documented as of this encounter
--- OUTSIDE RECORDS SUMMARY | 2024-05-26 00:53 | XMS_ITS | Encounter Summary ---
[place] [address] Care Team Providers Care Continuous Improvement Coordinator Name Role Phone Nicolasa Prince APRN Primary Care Provider +1- [phone] Reason for Referral * Diagnostic Test (Routine) - Closed Specialty Diagnoses / Procedures Referred By Patricioac t Referred To Contact Radiology Diagnoses Cervical radiculopathy Procedures MRI Cervical Spine wo Contrast (Generic) Nicolasa Prince APRN [address] [place] [address] [place] [address] Referral ID Status Reason Start Date Expiration Date V isits Requested Visits Authorized [id number] Closed Specialty Service Requested 12/09/2023 06/10/2025 1 1 Reason for Visit * Diagnostic Test (Routine) - Closed Specialty Diagnoses / Procedures Referred By Contac t Referred To Contact Radiology Diagnoses Cervical radiculopathy Procedures MRI Cervical Spine wo Contrast (Generic) Nicolasa Prince APRN [address] [place] [address] [place] [address] Referral ID Status Reason Start Date Expiration Date V isits Requested Visits Authorized [id number] Closed Specialty Service Requested 12/09/2023 06/10/2025 1 1 Encounter Details Date Type Department Care Team (Latest Contact Info) Description 12/30/2023 1:43 PM EDT - 12/30/2023 11:59 PM EDT [place] [phone] Nicolasa Prince APRN [address] [place] [address] Cervical radiculopathy Discharge Disposition: Home Social History [...] 08/14/2024 12:10 PM EDT Appointment MRI at [facility] [place] [phone] Irene Lara MD [facility] [place] [address] documented as of this encounter Procedures Procedure Name Priority Date/Time Associated Diagnosis Comments MRI CERVICAL SPINE WO CONTRAST Routine 12/30/2023 2:20 PM EDT Cervical radiculopathy documented in this encounter Results * MRI Cervical Spine wo Contrast (Generic) (12/30/2023 2:20 PM EDT) WORKSTATION ID [id number] RAD Anatomical Region Laterality Modality C-spine Magnetic [...] who have questions please contact the health healthcare administrative assistant that requested your imaging first. ? Narrative [...] patients who have questions please contactthe health healthcare administrative assistant that requested your imaging first. Nicolasa Prince APRN IMG MRI ORDERABLES documented in this encounter Visit Diagnoses Diagnosis Cervical radiculopathy Brachial neuritis or radiculitis nos documented in this encounter Care Teams Continuous Improvement Coordinator Relationship Specialty Start Date End Date Nicolasa Prince APRN [address] [place] [address] PCP - General Family Medicine 01/08/21 documented as of this encounter
--- OUTSIDE RECORDS SUMMARY | 2024-05-26 00:53 | XMS_ITS | Encounter Summary ---
Author Organization [facility] Address [address] [place] [address] Care Team Providers Care Capital Equipment Specialist Name Role Phone Unavailable Primary Care Provider Unavailabl e Encounter Details Date Type Department Care Team (Late st Contact Info) Description 03/01/2023 Lab Requisition [facility] Pathology & Laboratory Medicine - [address] [address] Outr Resulting Lab, Provider Social History Tobacco [...] Marker 2.7 <8.1 ng/mL 03/03/2023 8:36 EDT [facility] Comment: AFP Tumor Marker [...] & BLOOD GA S ORDERABLES Final Result [facility] [address] [place] [address] documented in this encounter Visit Diagnoses Not on filedocumented in this encounter
--- OUTSIDE RECORDS SUMMARY | 2024-05-26 00:53 | XMS_ITS | Encounter Summary ---
Author Organization [facility] [place] [address] Care Team Providers Care Keno Clerk Name Role Phone Nicolasa Prince APRN Primary Care Provider +1- [phone] Reason for Visit * Reason Onset Date Comments Appointment 05/09/2024 Encounter Details Date Type Department Care Team (Late st Contact Info) Description 05/09/2024 [place]phone [place] [address] Marianne Scanlon Appointment Social History Tobacco Use Types Packs/Day Years [...] encounter Miscellaneous Notes * Telephone Encounter - Marianne Scanlon - 05/09/2024 10:11 AM EST Called and LVM for patient to return call for scheduling a f/u with Dr. Lara - also MRI and labs prior. Schedule from the recall placed in patients chart. documented in this encounter Plan of Treatment Upcoming Encounters Date Type Department Care Team (Late st Contact Info) Description 08/14/2024 12:10 [place] [phone] Irene Lara MD [facility] GASTROENTEROLOGY [place], [place] [phone] documented as of this encounter Visit Diagnoses Not on filedocumented in this encounter Care Teams Keno Clerk Relationship Specialty Start Date End Date Nicolasa Prince APRN [address] [place] [address] PCP - General Family Medicine 01/08/21 documented as of this encounter
--- OUTSIDE RECORDS SUMMARY | 2024-05-26 00:53 | XMS_ITS | Encounter Summary ---
Author Organization [facility] [place] [address] Care Team Providers Care Rental Boats Caretaker Name Role Phone Nicolasa Prince APRN Primary Care Provider +1- [phone] Reason for Visit * Reason Comments Medication Refill Encounter Details Date Type Department Care Team (Late st Contact Info) Description 11/19/2023 Refill [place] [phone] Irene Lara MD [facility] [place] [address] Autoimmune hepatitis Social History Tobacco Use Types [...] 08/14/2024 12:10 PM [place] [address] Irene Lara MD [facility] [place] [address] documented as of this encounter Visit Diagnoses Diagnosis Autoimmune hepatitis documented in this encounter Care Teams Rental Boats Caretaker Relationship Specialty Start Date End Date Nicolasa Prince APRN [address] [place] [address] PCP - General Family Medicine 01/08/21 documented as of this encounter
--- OUTSIDE RECORDS SUMMARY | 2024-05-26 00:53 | XMS_ITS | Encounter Summary ---
Author Organization [facility] Address [facility] [place] [address] Care Team Providers Care Hogshead Stock Clerk Name Role Phone Nicolasa Prince APRN Primary Care Provider +1- [phone] Encounter Details Date Type Department Care Team [...] 08/14/2024 12:10 PM [place] [address] Irene Lara MD [facility] [place] [address] documented as of this encounter Visit Diagnoses Not on filedocumented in this encounter Care Teams Hogshead Stock Clerk Relationship Specialty Start Date End Date Nicolasa Prince APRN [address] [place] [address] PCP - General Family Medicine 01/08/21 documented as of this encounter
--- OUTSIDE RECORDS SUMMARY | 2024-05-26 00:53 | XMS_ITS | Referral Summary ---
Author Organization [facility] Address [address] [place] [address] Care Team Providers Care Last Model Department Supervisor Name Role Phone Unavailable Primary Care Provider Unavailabl e Encounters Date Type Department Care Team Description 03/31/2024 Lab Requisition [facility] Pathology & Laboratory Medicine - [facility] [address] [place] [address] Outr Resulting Lab, Provider from Last 3 [...] Associated Diagnosis Comments AFP TUMOR MARKER Routine 03/31/2024 8:05 EST from Last 3 Months Results * AFP TUMOR MARKER (03/31/2024 8:05 EST) AFP Tumor Marker 3.0 <8.1 ng/mL 04/03/2024 11:03 EST [facility] Comment: AFP Tumor Marker cannot be interpreted in females. ?? NOTE: Serum AFP concentrations should not be interpreted as absolute evidence for the presence or absence of malignant disease. Assayed on Siemens ADVIA Centaur XPT using chemiluminescent technology. ??Values obtained by using different assay methods cannot be used interchangeably. Blood VENOUS BLOOD / Unknown 03/31/2024 8:05 EST 03/31/2024 16:54 EST us Provider Outr Resulting Lab CHEMISTRY & BLOOD GA S ORDERABLES Final Result [facility] [address] [place] [address] from Last 3 Months
--- OUTSIDE RECORDS SUMMARY | 2024-05-26 00:53 | XMS_ITS | Encounter Summary ---
[place] [address] Care Team Providers Care Ripening Room Hand Name Role Phone Nicolasa Prince YULIA Primary Care Provider +1- [phone] Reason for Referral * Diagnostic Test (Routine) - New Request Specialty Diagnoses / Procedures Referred By Minh miguel Referred To Contact Radiology Diagnoses Liver lesion Procedures MRI Abdomen wwo Contrast (Generic) Irene Lara MD [facility] [place] [address] [place] [address] Referral ID Status Reason Start Date Expiration Date Visits Requested Visits Authorized [id number] New Request Specialty Service Requested 04/05/2024 10/04/2025 1 1 Encounter Details Date Type Department Care Team (Late st Contact Info) Description 04/05/2024 Orders [place] [address] Irene Lara MD [facility] [place] [address] Liver lesion; Hepatic cirrhosis, unspecified hepatic cirrhosis type, unspecified [...] as of this encounter Progress Notes * Irene Lara MD - 04/05/2024 8:45 AM EST Small lesion <1cm seen on US in right lobe of liver Will arrange MRI along with follow up visit in August Labs CBC, CMP, AFP same day Irene Lara MD Section of Gastroenterology & Hepatology [address] [place] [address] documented in this encounter Plan of Treatment Upcoming Encounters Date Type Department Care Team (Late st Contact Info) Description 08/14/2024 12:10 PM [place] [address] Irene Lara MD [facility] [place] [address] Scheduled Orders Name Type Priority Associated Diagnoses Orde r Schedule MRI Abdomen wwo Contrast (Generic) Imaging Routine Liver lesion Expected: 09/20/2024, Expires: 03/22/2025 CBC (with Diff) Lab Routine Liver lesion Hepatic cirrhosis, unspecified hepatic cirrhosis type, unspecified whether ascites present Expected: 09/20/2024 (Approximate), Expires: 04/06/2025 Comprehensive metabolic panel Lab Routine Liver lesion Hepatic cirrhosis, unspecified hepatic cirrhosis type, unspecified whether ascites present Expected: 09/20/2024 (Approximate), Expires: 04/06/2025 AFP tumor marker Lab Routine Liver lesion Hepatic cirrhosis, unspecified hepatic cirrhosis type, unspecified whether ascites present Expected: 09/20/2024 (Approximate), Expires: 04/06/2025 documented as of this encounter Visit Diagnoses Diagnosis Liver lesion Other specified disorders of liver Hepatic cirrhosis, unspecified hepatic cirrhosis type, unspecified whether ascites present documented in this encounter Care Teams Ripening Room Hand Relationship Specialty Start Date End Date Nicolasa Prince APRN [address] [place] [address] PCP - General Family Medicine 01/08/21 documented as of this encounter
--- OUTSIDE RECORDS SUMMARY | 2024-05-26 00:53 | XMS_ITS | Encounter Summary ---
Author Organization [facility] Address [facility] [place] [address] Care Team Providers Care Art Sales Consultant Name Role Phone Nicolasa Prince APRN Primary Care Provider +1- [phone] Encounter Details Date Type Department Care Team (Late st Contact Info) Description 12/13/2023 [place] [address] Jasmin Porras Social History Tobacco Use Types [...] 08/14/2024 12:10 PM EDT [place] [address] Irene Lara MD [facility] [place] [address] documented as of this encounter Visit Diagnoses Not on filedocumented in this encounter Care Teams Art Sales Consultant Relationship Specialty Start Date End Date Nicolasa Prince APRN [address] [place] [address] PCP - General Family Medicine 01/08/21 documented as of this encounter
--- OUTSIDE RECORDS SUMMARY | 2024-05-26 00:53 | XMS_ITS | Encounter Summary ---
Author Organization [facility] Address [facility] [place] [address] Care Team Providers Care Order Packer Or Packager Name Role Phone Nicolasa Prince APRN Primary Care Provider +1- [phone] Reason for Visit * Reason Onset Date Comments Medication Refill 12/08/2023 Encounter Details Date Type Department Care Team (Late st Contact Info) Description 12/08/2023 [place] [address] Elin Carlson MD [facility] [place] [address] Autoimmune hepatitis Social History Tobacco Use Types [...] 08/14/2024 12:10 [place] [address] Irene Lara MD [facility] [place] [address] documented as of this encounter Visit Diagnoses Diagnosis Autoimmune hepatitis documented in this encounter Care Teams Order Packer Or Packager Relationship Specialty Start Date End Date Nicolasa Prince APRN [address] [place] [address] PCP - General Family Medicine 01/08/21 documented as of this encounter
--- OUTSIDE RECORDS SUMMARY | 2024-05-26 00:53 | XMS_ITS | Encounter Summary ---
Author Organization [facility] [place] [address] Care Team Providers Care Propeller Driven Airplane Mechanic Name Role Phone Nicolasa Prince APRN Primary Care Provider +1- [phone] Encounter Details Date Type Department Care Team (Latest Contact Info) Description 09/28/2023 11:15 AM EDT Laboratory Appointment [place] [address] [place] [phone] Primary biliary cholangitis Social History Tobacco Use [...] 08/14/2024 12:10 PM ED[place] [phone] Irene Lara MD [facility] [place] [address] documented as of this encounter Procedures Procedure Name Priority Date/Time Associated Diagnosis Comments HEPATIC FUNCTION PANEL Routine 09/28/2023 11:46 AM EDT Primary biliary cholangitis documented in this encounter Results * Hepatic Function Panel (09/28/2023 11:46 AM EDT) Protein, Total 7.6 6.1 - 8.0 g/dL [facility] Albumin 4.4 3.2 - 5.2 g/dL [facility] Aspartate Aminotransferase 25 0 - 30 unit/L [facility] Alanine Aminotransferase 23 0 - 30 unit/L [facility] Alkaline Phosphatase 70 35 - 105 unit/L [facility] Bilirubin, Total 0.7 0.2 - 1.3 mg/dL [facility] Bilirubin, Direct 0.3 0.0 - 0.3 mg/dL [facility] Blood 09/28/2023 11:4 6 AM EDT 09/28/2023 11:51 AM EDT Narrative Resulting Agency Comment Spec In Lab Irene Lara MD CHEMISTRY ORDERABLES Performing Organization Address City/State/[facility] Co de Phone Number [facility] [place] [address] documented in this encounter Visit Diagnoses Diagnosis Primary biliary cholangitis documented in this encounter Care Teams Propeller Driven Airplane Mechanic Relationship Specialty Start Date End Date Nicolasa Prince APRN [address] [place] [address] PCP - General Family Medicine 01/08/21 documented as of this encounter
--- OUTSIDE RECORDS SUMMARY | 2024-05-26 00:53 | XMS_ITS | Encounter Summary ---
Author Organization [facility] Address [address] [place] [address] Care Team Providers Care Call Center Manager Name Role Phone Unavailable Primary Care Provider Unavailabl e Encounter Details Date Type Department Care Team (Late st Contact Info) Description 03/31/2024 Lab Requisition [facility] Pathology & Laboratory Medicine - [address] [address] Outr Resulting Lab, Provider Social History Tobacco [...] AFP TUMOR MARKER Routine 03/31/2024 8:05 EST documented in this encounter Results * AFP TUMOR MARKER (03/31/2024 8:05 EST) AFP Tumor Marker 3.0 <8.1 ng/mL 04/03/2024 11:03 EST [facility] Comment: AFP Tumor Marker cannot [...] & BLOOD GA S ORDERABLES Final Result [facility] [address] [place] [address] documented in this encounter Visit Diagnoses Not on filedocumented in this encounter
--- OUTSIDE RECORDS SUMMARY | 2024-05-26 00:53 | XMS_ITS | Clinical Summary ---
Author Organization [facility] Address [address] [place] [address] Care Team Providers Care Energy Infrastructure Engineer Name Role Phone Unavailable Primary Care Provider Unavailabl e Encounters Date Type Department Care Team Description 03/31/2024 Lab Requisition [facility] Pathology & Laboratory Medicine - [address] [address] Outr Resulting Lab, Provider from Last 3 [...] Marker 3.0 <8.1 ng/mL 04/03/2024 11:03 EST [facility] Comment: AFP Tumor Marker [...] & BLOOD GA S ORDERABLES Final Result [facility] [address] [place] [address] from Last 3 Months
--- OUTSIDE RECORDS SUMMARY | 2024-05-26 00:53 | XMS_ITS | Encounter Summary ---
Author Organization [facility] Address [address] [place] [address] Care Team Providers Care Accounts Administrator Name Role Phone Unavailable Primary Care Provider Unavailabl e Encounter Details Date Type Department Care Team (Late st Contact Info) Description 11/17/2023 Lab Requisition [facility] Pathology & [place] [address] Outr Resulting Lab, Provider Social History Tobacco [...] Negative Negative 11/18/2023 11:08 EDT [facility] Blood VENOUS BLOOD / Unknown 11/16/2023 9:50 EDT 11/17/2023 18:10 EDT us Provider Outr Resulting Lab IMMUNOLOGY AND SEROL OGY ORDERABLES Final Result [facility] [address] [place], [place] [address] documented in this encounter Visit Diagnoses Not on filedocumented in this encounter
--- OUTSIDE RECORDS SUMMARY | 2024-05-26 00:53 | XMS_ITS | Encounter Summary ---
Author Organization [facility] Address [address] [place] [address] Care Team Providers Care Boiler Attendant Name Role Phone Unavailable Primary Care Provider Unavailabl e Encounter Details Date Type Department Care Team (Late st Contact Info) Description 01/11/2024 Lab Requisition [facility] Pathology & Laboratory Medicine - [address] [address] Outr Resulting Lab, Provider Social History Tobacco [...] Marker <2.5 <8.1 ng/mL 01/12/2024 9:52 EDT [facility] Comment: AFP Tumor [...] & BLOOD GA S ORDERABLES Final Result [facility] [address] [place] [address] documented in this encounter Visit Diagnoses Not on filedocumented in this encounter
--- OUTSIDE RECORDS SUMMARY | 2024-05-26 00:53 | XMS_ITS | Encounter Summary ---
Author Organization [facility] [place] [address] Care Team Providers Care Cte Teacher Name Role Phone Nicolasa Prince APRN Primary Care Provider +1- [phone] Encounter Details Date Type Department Care Team (Late st Contact Info) Description 09/28/2023 1:00 PM EDT Office [place] [address] Irene Lara MD [facility] [place] [address] Primary biliary cholangitis; Hepatic cirrhosis, unspecified hepatic [...] documented in this encounter Progress Notes * Ierne Lara MD - 09/28/2023 1:00 PM EDT [...] [place] and she was managed by a salesperson hearing aids at [facility]. Her records were extensively [...] Vitals: 09/28/23 1310 BP: 118/57 BP Location ([facility]): Right arm Patient Position: Sitting BP [...] screening in six months- will do in [facility], , GIF here in one year Time spent with patient: 25 min Time spent reviewing records, documenting- all today : 8 min Irene Lara MD Section of Gastroenterology & Hepatology [address] [place] [address] Cc: Nicolasa Prince APRN SURGICAL PATHOLOGY REPORT Patient: PREMA SALGADO MR #: [id number] Submitted by: Elie Moreno MD FINAL DIAGNOSIS [...] the ductules cannot be definitively distinguished from [place] bile ducts. There is patchy periportal hepatocellular [...] [facility] (see accession number [id number]), although the slides are not available for direct comparison at this time. However, based on the microscopic description, it appears that fibrosis may have progressed. documented in this encounter Plan of Treatment Upcoming Encounters Date Type Department Care Team (Late st Contact Info) Description 08/14/2024 12:10 PM [place] [address] Irene Lara MD [facility] [place] [address] Scheduled Orders Name Type Priority Associated Diagnoses [...] present documented in this encounter Care Teams Cte Teacher Relationship Specialty Start Date End Date Nicolasa Prince APRN [address] [place] [address] PCP - General Family Medicine 01/08/21 documented as of this encounter
--- OUTSIDE RECORDS SUMMARY | 2024-05-26 00:53 | XMS_ITS | Encounter Summary ---
Author Organization [facility] Address [facility] [place] [address] Care Team Providers Care Cheesemaking Laborer Name Role Phone Nicolasa Prince APRN Primary Care Provider +1- [phone] Reason for Visit * Reason Onset Date Comments Medication Refill 03/23/2024 Encounter Details Date Type Department Care Team (Late st Contact Info) Description 03/23/2024 Ref[place] [address] Irene Lara MD [facility] [place] [address] Autoimmune hepatitis Social History Tobacco Use Types [...] 08/14/2024 12:10 PM [place] [address] Irene Lara MD [facility] [place] [address] documented as of this encounter Visit Diagnoses Diagnosis Autoimmune hepatitis documented in this encounter Care Teams Cheesemaking Laborer Relationship Specialty Start Date End Date Nicolasa Prince APRN [address] [address] PCP - General Family Medicine 01/08/21 documented as of this encounter
--- OUTSIDE RECORDS SUMMARY | 2024-05-26 00:53 | XMS_ITS | Clinical Summary ---
Author Organization [facility] Address [facility] [place] [address] Care Team Providers Care Toggle Press Folder And Feeder Name Role Phone Nicolasa Prince YULIA Primary Care Provider +1- [phone] Allergies Active Allergy Reactions Criticality Noted Date Comments Amoxicillin 01/22/2021 Ciprofloxacin 01/22/2021 Egg Derived Other (See Comments),Anaphylaxi s,Hives,Itching High 02/17/2013 Also Egg Metformin Nausea And Vomiting Low 10/29/2020 Mold Other (See Comments) 01/22/2021 Also SMUT Vnenhjb-Fyn-Eql Reductase Inhibitors Low 10/25/2020 Other reaction(s): Myalgia/Myositis/A [...] Diagnosed Date Atherosclerotic heart diseas [place] coronary artery without angina pectoris 01/22/2021 Encounters Date Type Department Care Team Description 05/09/2024 Telephone [place] [address] Marianne Scanlon Appointment 04/05/2024 Orders [place] [address] Irene Lara MD Liver lesion; Hepatic cirrhosis, unspecified hepatic cirrhosis type, unspecified whether ascites present 03/23/2024 Refill [place] [address] Irene Lara MD Autoimmune hepatitis from Last [...] 09/28/2023 1:10 PM EDT Plan of Treatment Upcoming Encounters Date Type Department Care Team (Late st Contact Info) Description 08/14/2024 12:10 PM EDT [place] [address] Irene Lara MD [facility] DR GASTROENTEROLOGY [place] [id number] Health Maintenance Due Date Last Done Comments CT Colonography 1950 FIT DNA 1950 FIT 1950 Sigmoidoscopy 1950 Hepatitis C Screening 1970 Lipid Screening 1970 Pneumoccocal Vaccine: 50+ (1 of 2 - PCV) 12/08/1971 Tetanus/Diphtheria/Pertussis Vaccines (1 - Tdap) 12/08/1971 Breast Cancer Share Decision Needed 1992 Zoster vaccine (1 of 2) 2002 Advance Directive 12/08/2007 RSV Vaccine (1 - Risk 60-74 years 1-dose series) 2012 Bone Density Scan 2017 Breast Cancer screening 11/30/2021 12/01/2019 Covid-19 Vaccine (1 - 2023-2 5 season) [...] Priority Date/Time Associated Diagnosis Comments LAB SCAN 03/31/2024 12:00 AM EST ULTRASOUND SCAN (SCAN) 12:00 AM EST COMPREHENSIVE METABOLIC PANEL Routine 03/30/2023 10:23 AM EST Primary biliary cholangitis Hepatic cirrhosis, unspecified hepatic cirrhosis type, unspecified whether ascites present COLONOSCOPY Routine 02/19/2023 1:47 PM EDT from Last 3 Months or Most Recently Relevant to Health Maintenance Results * Scan Doc: Ultrasound (03/31/2024 12:00 AM EST) Anatomical Region Laterality Modality Other Narrative 03/31/2024 12:00 AM EST Ordered by an unspecified provider. Scanning Provider MEDIA MGR SCAN EXT O RDR/RSLT * Scan Doc: Lab (03/31/2024 12:00 AM EST) Narrative 03/31/2024 12:00 AM EST Ordered by an unspecified provider. Scanning Provider MEDIA MGR SCAN EXT O RDR/RSLT * (ABNORMAL) Comprehensive metabolic panel (non-fasting) (03/30/2023 10:23 AM EST) Glucose 110 65 - 199 mg/dL [facility] Comment:Diabetes: >=200 mg/d L plus symptoms Blood Urea Nitrogen 20(H) 8 - 18 mg/dL [facility] Creatinine 0.82 0.70 - 1.20 mg/dL [facility] Sodium 140 135 - 145 mmol/L [facility] Potassium 4.1 3.5 - 5.0 mmol/L [facility] Comment: Please note: ??Patients with WBC >100,000 may have falsely elevated Potassium levels. ??For accurate Potassium quantification in these patients send serum separator tube (gold top) for subsequent determinations. ??Contact the Clinical Chemistry Laboratory if there are any questions. Chloride 105 98 - 107 mmol/L [facility] Carbon Dioxide 22 22 - 31 mmol/L [facility] Anion Gap 13 5 - 15 mmol/L [facility] Calcium 9.8 8.5 - 10.5 mg/dL [facility] Protein, Total 7.2 6.1 - 8.0 g/dL [facility] Albumin 4.4 3.2 - 5.2 g/dL [facility] Aspartate Aminotransferase 31(H) 0 - 30 unit/L [facility] Alanine Aminotransferase 24 0 - 30 unit/L [facility] Alkaline Phosphatase 64 35 - 105 unit/L [facility] Bilirubin, Total 0.7 0.2 - 1.3 mg/dL [facility] Est Glomerular Filtration Rate 77 >=60 mL/min/1. 73 m?? [facility] Comment: This patient's estimated GFR [...] In Lab Irene Lara MD CHEMISTRY ORDERABLES [facility] [place] [address] * COLONOSCOPY (02/19/2023 1:47 PM EDT) [facility] Signature COLONOSCOPY [facility] Endoscopy Procedure Date: 02/19/2023 1:47 PM ? Patient Name: Cookie Salgado ? Date of : 1950 ? Age: 72 ? Order #: [id number] ? Instrument Name: [id number] ? Procedure: ? Colonoscopy Indications: ? Follow-up [...] ? was evaluated using the BBPS ? ([place] Bowel Preparation Scale) ? with scores of: [...] Resected ? and retrieved. ? - A maria teresao was seen in the ? descending colon. [...] Procedure Code(s): ? --- Professional --- ? 54318, Colonoscopy, flexible; with ? removal of tumor(s), polyp(s), or ? other lesion(s) by snare technique CPT copyright 2021 [employer]. All rights reserved. The codes documented in this report are preliminary and upon insurance coder review may be revised to meet current compliance requirements. Attending Participation: ? I personally performed the entire procedure. ? Elin Carlson MD _ Elin Carlson MD 02/19/2023 2:36:53 PM This report has been signed electronically. Number of Addenda: 0 Note Initiated On: 02/19/2023 1:47 PM [employer]ATION 02/19/2023 1:47 PM EDT Nicolasa Prince APRN GENERAL SURGICAL O RDERABLES [employer] from Last 3 Months or Most Recently Relevant to Health Maintenance Care Teams Toggle Press Folder And Feeder Relationship Specialty Start Date End Date Nicolasa Prince APRN [address] [place] [address] PCP - General Family Medicine 01/08/21
--- OUTSIDE RECORDS SUMMARY | 2024-05-26 00:54 | XMS_ITS | Encounter Summary ---
Author Organization [facility] [place] [address] Care Team Providers Care Hub Associate Name Role Phone Nicolasa Prince APRN Primary Care Provider +1- [phone] Encounter Details Date Type Department Care Team (Late Contact Info) Description 02/15/2022 Orders [place] [address] Irene Lara MD [facility] [place] [address] Hepatic cirrhosis, unspecified hepatic cirrhosis type, unspecified [...] 08/14/2024 12:10 [place] [address] Irene Lara MD [facility] [place] [address] Scheduled Orders Name Type Priority Associated Diagnoses [...] colon documented in this encounter Care Teams Hub Associate Relationship Specialty Start Date End Date Nicolasa Prince APRN [address] [place] [address] PCP - General Family Medicine 01/08/21 documented as of this encounter
--- OUTSIDE RECORDS SUMMARY | 2024-05-26 00:54 | XMS_ITS | Encounter Summary ---
[facility] Address [facility] [place] [address] Care Team Providers Care Security Flex Utility Officer Name Role Phone Nicolasa Prince APRN Primary Care Provider +1- [phone] Encounter Details Date Type Department Care Team (Late Contact Info) Description 11/02/2022 External [place] [address] [facility] [place] [address] Social History Tobacco Use Types Packs/Day Years [...] 08/14/2024 12:10 PM [place] [address] [facility] [place] [address] documented as of this encounter Procedures Procedure [...] on filedocumented in this encounter Care Teams Security Flex Utility Officer Relationship Specialty Start Date End Date Nicolasa Prince APRN [address] [place] [address] PCP - General Family Medicine 01/08/21 documented as of this encounter
--- OUTSIDE RECORDS SUMMARY | 2024-05-26 00:54 | XMS_ITS | Encounter Summary ---
Author Organization [facility] [place] [address] Care Team Providers Care Set And Exhibit Designer Name Role Phone Nicolasa Prince APRN Primary Care Provider +1- [phone] Reason for Visit * Reason Comments Medication Refill Encounter Details Date Type Department Care Team (Late st Contact Info) Description 03/14/2023 Ref[place] [address] Irene Lara MD [facility] [place] [address] Autoimmune hepatitis Social History Tobacco Use Types [...] 08/14/2024 12:10 PM [place] [address] Irene Lara MD [facility] [place] [address] documented as of this encounter Visit Diagnoses Diagnosis Autoimmune hepatitis documented in this encounter Care Teams Set And Exhibit Designer Relationship Specialty Start Date End Date Nicolasa Prince APRN [address] [place] [address] PCP - General Family Medicine 01/08/21 documented as of this encounter
--- OUTSIDE RECORDS SUMMARY | 2024-05-26 00:54 | XMS_ITS | Encounter Summary ---
Author Organization [facility] [place] [address] Care Team Providers Care Budget Consultant Name Role Phone Nicolasa Prince APRN Primary Care Provider +1- [phone] Reason for Visit * Reason Comments Medication Refill Encounter Details Date Type Department Care Team (Late st Contact Info) Description 12/14/2022 Refill [place] [address] Irene Lara MD [facility] [place] [address] Autoimmune hepatitis Social History Tobacco Use Types [...] 08/14/2024 12:10 PM [place] [address] Irene Lara MD [facility] [place] [address] documented as of this encounter Visit Diagnoses Diagnosis Autoimmune hepatitis documented in this encounter Care Teams Budget Consultant Relationship Specialty Start Date End Date Nicolasa Prince APRN [address] [place] [address] PCP - General Family Medicine 01/08/21 documented as of this encounter
--- OUTSIDE RECORDS SUMMARY | 2024-05-26 00:54 | XMS_ITS | Encounter Summary ---
Author Organization [facility] Address [facility] [place] [address] Care Team Providers Care Environmental Engineering Technician Name Role Phone Nicolasa Prince APRN Primary Care Provider +1- [phone] Encounter Details Date Type Department Care Team (Late Contact Info) Description 11/30/2022 External [place] [address] Irene Lara MD [facility] [place] [address] Social History Tobacco Use Types Packs/Day Years [...] 08/14/2024 12:10 [place] [address] Irene Lara MD [facility] [place] [address] documented as of this encounter Procedures Procedure [...] Aminotransferase 27 Alanine Aminotransferase 28 Historical Provider [facility] documented in this encounter Visit Diagnoses Not on filedocumented in this encounter Care Teams Environmental Engineering Technician Relationship Specialty Start Date End Date Nicolasa Prince APRN [address] [place] [address] PCP - General Family Medicine 01/08/21 documented as of this encounter
--- OUTSIDE RECORDS SUMMARY | 2024-05-26 00:54 | XMS_ITS | Encounter Summary ---
Author Organization [facility] [place] [address] Care Team Providers Care Top Spotter Name Role Phone Nicolasa Prince APRN Primary Care Provider +1- [phone] Reason for Visit * Reason Comments Medication Refill Encounter Details Date Type Department Care Team (Late st Contact Info) Description 08/23/2023 Refill [place] [address] Irene Lara MD [facility] [place] [address] Autoimmune hepatitis Social History Tobacco Use Types [...] 08/14/2024 12:10 PM EDT [place] [address] Irene Lara MD [facility] [place] [address] documented as of this encounter Visit Diagnoses Diagnosis Autoimmune hepatitis documented in this encounter Care Teams Top Spotter Relationship Specialty Start Date End Date Nicolasa Prince APRN [address] [place] [address] PCP - General Family Medicine 01/08/21 documented as of this encounter
--- OUTSIDE RECORDS SUMMARY | 2024-05-26 00:54 | XMS_ITS | Encounter Summary ---
Author Organization [facility] Address [facility] [place] [address] Care Team Providers Care Civil Engineer Land Development Name Role Phone Nicolasa Prince YULIA Primary Care Provider +1- [phone] Encounter Details Date Type Department Care Team (Latest Contact Info) Description 03/30/2023 9:10 AM EST - 03/30/2023 11:59 PM [facility] [place] [address] Carolynn Lamar MD [facility] [place] [address] Primary biliary cholangitis; Hepatic cirrhosis, unspecified hepatic [...] 08/14/2024 12:10 PM [place] [address] Carolynn Lamar MD [facility] [place] [address] documented as of this encounter Procedures Procedure [...] have questions, please contact the health career professional that requested your imaging first. ? Ke Jay, Staff Physician Electronically Signed Final Report ?? 03/30/2023 12:27 pm Narrative 03/30/2023 12:28 PM EST Abdominal ? (Signed Final 03/30/2023 12:27 pm) PATIENT INFO: ID #: ? [id number] ?: ??[birth year] (72 yrs)(F) Name: ? PREMA SALGADO ?Visit Date: 03/30/2023 09:52 am PERFORMED BY: Attending: ?Pierre LUTHER, Ke Conklin Resident: ? Joseph LUTHER, Ada Barrow Performed By: ? Elba Milian RDMS Referred By: ?CAROLYNN LAMAR Location: ? [facility] SERVICE(S) PROVIDED: [facility] - Hepatology Protocol - Abdominal ?25444 Limited Survey Single Organ or Quadrant - [id number] INDICATIONS: cirrhosis, screen for hcc COMPARISON: US: [...] 03/30/2023 12:27 pm) PATIENT INFO: ID #: [id number] : [birth year] (72 yrs)(F) Name: PREMA SALGADO Visit Date: 03/30/2023 09:52 am PERFORMED BY: Attending: Ke Jay MD Resident: Ada Ruiz MD Performed By: Elba Milian RDMS Referred By: CAROLYNN LAMAR Location: [facility] SERVICE(S) PROVIDED: [facility] - Hepatology Protocol - Abdominal 00925 Limited Survey Single Organ or Quadrant - [id number] INDICATIONS: cirrhosis, screen for hcc COMPARISON: US: [...] PM Electronically signed by: Ke Jay MD, [facility] ([phone]), at 03/30/2023 12:19 PM Thank you for letting us participate in the care of this patient. If you are a health care provider and have any questions regarding this report, please contact the number above. For patients who have questions, please contact the health career professional that requested your imaging first. Ke Jay, Staff Physician Electronically Signed Final Report 03/30/2023 12:27 pm Carolynn Lamar MD IMG US GEN ORDERABLE S documented in this encounter Visit Diagnoses Diagnosis Primary biliary cholangitis Hepatic cirrhosis, unspecified hepatic cirrhosis type, unspecified whether ascites present documented in this encounter Care Teams Civil Engineer Land Development Relationship Specialty Start Date End Date Nicolasa Prince APRN [address] [place] [address] PCP - General Family Medicine 01/08/21 documented as of this encounter
--- OUTSIDE RECORDS SUMMARY | 2024-05-26 00:54 | XMS_ITS | Encounter Summary ---
Author Organization [facility] Address [facility] [place] [address] Care Team Providers Care Dining Server Name Role Phone Nicolasa Prince APRN Primary Care Provider +1- [phone] Encounter Details Date Type Department Care Team (Late st Contact Info) Description 03/09/2023 External Results [place] [address] Isabela March RN Social History Tobacco Use [...] 08/14/2024 12:10 PM EDT [place] [address] [facility] [place] [place] [address] documented as of this encounter Procedures Procedure [...] filedocumented in this encounter Care Teams Dining Server Relationship Specialty Start Date End Date Nicolsaa Prince, YULIA [address] [place] [address] PCP - General Family Medicine 01/08/21 documented as of this encounter
--- OUTSIDE RECORDS SUMMARY | 2024-05-26 00:54 | XMS_ITS | Encounter Summary ---
Author Organization Formerly [facility] [place] [address] Care Team Providers Care Funeral Car Chauffeur Name Role Phone Nicolasa Prince APRN Primary Care Provider +1- [phone] Encounter Details Date Type Department Care Team (Late st Contact Info) Description 09/30/2022 1:00 PM EDT Office [place] [address] Irene Lamar MD [facility] [place] [address] Primary biliary cholangitis; Hepatic cirrhosis, unspecified hepatic [...] [place] and she was managed by a cadd drafter at [facility]. Her records were extensively reviewed in [...] Vitals: 09/30/22 1248 BP: 128/72 BP Location ([facility]): Right arm Patient Position: Sitting [...] this in 3 months. Orders sent to [facility] PCP considering ozempic for diabetes, I have no concerns about this from a liver standpoint and support its use. Time spent with patient: 25 min Time spent reviewing records, documenting- all today : 7 min Irene Lamar MD Section of Gastroenterology & Hepatology [address] [place] [address] Cc: Nicolasa Pirnce APRN SURGICAL PATHOLOGY REPORT ? Patient: PREMA SALGADO ?MR #: [id number] ?Submitted by: Elie Moreno MD FINAL DIAGNOSIS [...] the ductules cannot be definitively distinguished from soboba bile ducts. ??There is patchy periportal hepatocellular [...] [facility] (see accession number [id number]), although the slides are not available for direct comparison at this time. ??However, based on the microscopic description, it appears that fibrosis may have progressed. documented in this encounter Plan of Treatment Upcoming Encounters Date Type Department Care Team (Late st Contact Info) Description 08/14/2024 12:10 PM [place]T [place] [address] Irene Lamar MD [facility] [place] [address] documented as of this encounter Results * AFP tumor marker (03/30/2023 10:23 AM EST) Alpha Fetoprotein 2.8 <=8.3 ng/mL [facility] Comment: This result was generated using a Mendoza Jonathan immunoassay. ??Results obtained from other methods or manufacturers cannot be used interchangeably with this method. Blood 03/30/2023 10:2 3 AM EST 03/30/2023 10:30 AM EST Narrative Resulting Agency Comment Spec In Lab Irene Lamar MD CHEMISTRY ORDERABLES Performing Organization Address [facility] Co de Phone Number [facility] [place] [place] [address] * Prothrombin Time (03/30/2023 10:23 AM EST) Prothrombin Time 12.0 9.4 - 12.5 sec [facility] International Normalization Ratio 1.1 [facility] Comment: An INR <2.0 indicates [...] MD HEMATOLOGY ORDERABLE S Performing Organization Address City/[facility] Co de Phone Number [facility] [place] [place] [address] * (ABNORMAL) Comprehensive metabolic panel (non-fasting) (03/30/2023 10:23 AM EST) Glucose 110 65 - 199 mg/dL [facility] Comment:Diabetes: >=200 mg/d L plus symptoms Blood Urea Nitrogen 20(H) 8 - 18 mg/dL [facility] Creatinine 0.82 0.70 - 1.20 mg/dL [facility] Sodium 140 135 - 145 mmol/L [facility] Potassium 4.1 3.5 - 5.0 mmol/L [facility] Comment: Please note: ??Patients with WBC >100,000 may have falsely elevated Potassium levels. ??For accurate Potassium quantification in these patients send serum separator tube (gold top) for subsequent determinations. ??Contact the Clinical Chemistry Laboratory if there are any questions. Chloride 105 98 - 107 mmol/L [facility] Carbon Dioxide 22 22 - 31 mmol/L [facility] Anion Gap 13 5 - 15 mmol/L [facility] Calcium 9.8 8.5 - 10.5 mg/dL [facility] Protein, Total 7.2 6.1 - 8.0 g/dL [facility] Albumin 4.4 3.2 - 5.2 g/dL [facility] Aspartate Aminotransferase 31(H) 0 - 30 unit/L [facility] Alanine Aminotransferase 24 0 - 30 unit/L [facility] Alkaline Phosphatase 64 35 - 105 unit/L [facility] Bilirubin, Total 0.7 0.2 - 1.3 mg/dL [facility] Est Glomerular Filtration Rate 77 >=60 mL/min/1. 73 m?? [facility] Comment: This patient's estimated GFR [...] In Lab Irene Lamar MD CHEMISTRY ORDERABLES [facility] [place] [place] [address] * US Abdomen Limited Hepatology Protocol (03/30/2023 [...] signed by: Ke Jay MD, [facility] ([phone]), at 03/30/2023 12:19 PM Thank you for letting us participate in the care of this patient. If you are a health care provider and have any questions regarding this report, please contact the number above. For patients who have questions, please contact the health rn homecare that requested your imaging first. ? Ke Jay, Staff Physician Electronically Signed Final Report ?? 03/30/2023 12:27 pm Narrative 03/30/2023 12:28 PM EST Abdominal ? (Signed Final 03/30/2023 12:27 pm) PATIENT INFO: ID #: ? [id number] ?: ??[birth year] (72 yrs)(F) Name: ? PREMA SALGADO ?Visit Date: 03/30/2023 09:52 am PERFORMED BY: Attending: ?Pierre LUTHER, Ke Conklin Resident: ? Ruiz Ada LUTHER Performed By: ? Elba Milian RDMS Referred By: ?IRENE LAMAR Location: ? [place] [facility]ICE[facility] - Hepatology Protocol - Abdominal ?39228 Limited Survey Single Organ or Quadrant - [id number] INDICATIONS: cirrhosis, screen for hcc COMPARISON: US: [...] 03/30/2023 12:27 pm) PATIENT INFO: ID #: [id number] : 54 (72 yrs)(F) Name: PREMA SALGADO Visit Date: 03/30/2023 09:52 am PERFORMED BY: Attending: Ke Jay MD Resident: Ada Ruiz MD Performed By: Elba Milian RDMS Referred By: IRENE LAMAR Location: [place] SERVICE(S) PROVIDED: [facility] - Hepatology Protocol - Abdominal 69284 Limited Survey Single Organ or Quadrant - [id number] INDICATIONS: cirrhosis, screen for hcc COMPARISON: US: [...] signed by: Ke Jay MD, [facility] ([phone]), at 03/30/2023 12:19 PM Thank you for letting us participate in the care of this patient. If you are a health care provider and have any questions regarding this report, please contact the number above. For patients who have questions, please contact the health rn homecare that requested your imaging first. Ke Jay, Staff Physician Electronically Signed Final Report 03/30/2023 12:27 pm Irene Lamar MD IMG US GEN ORDERABLE S documented in this encounter Visit Diagnoses Diagnosis Primary biliary cholangitis Hepatic cirrhosis, unspecified hepatic cirrhosis type, unspecified whether ascites present Primary biliary cholangitis Hepatic cirrhosis, unspecified hepatic cirrhosis type, unspecified whether ascites present documented in this encounter Care Teams Funeral Car Chauffeur Relationship Specialty Start Date End Date Suresh Nicolasa ChanYULIA [address] [place] [address] PCP - General Family Medicine 01/08/21 documented as of this encounter
--- OUTSIDE RECORDS SUMMARY | 2024-05-26 00:54 | XMS_ITS | Encounter Summary ---
Author Organization Formerly [facility] [place] [address] Care Team Providers Care Financial Specialist Name Role Phone Nicolasa Prince YULIA Primary Care Provider +1- [phone] Reason for Visit * Auth/Cert (Routine) Specialty [...] GI ENDOSCOPY COLONOSCOPY, DIAGNOSTIC Elin Carlson MD [facility] [place] [address] [facility] Referral ID Status Reason Start Date Expiration Date Visits Re quested Visits Authorized [id number] 1 1 Encounter Details Date Type Department Care Team (Late st Contact Info) Description 08/07/2022 2:00 PM EDT - 08/07/2022 3:00 PM EDT Surgery [place] [address] Elin Carlson MD [facility] [place] [address] EGD, UPPER GI ENDOSCOPY (WRVU 2.09) Social [...] the day after the test, use an blye-zeu-ecgdpqh spray or lozenges to numbyour throat. Warm [...] occurs, please contact your doctor. Please call [phone] before 8pm Mon-Fri with problems, questions, or concerns. If you call after 8pm or on weekends, call the Hospital at [phone] and ask for the Crib Clerk surgery consultant and the teletype or varitype keyboard operator will contact that person for you. [...] more? You can view health information on [employer], your personal patient account. Log in or sign up today. Content Version: 12.2 ?? [phone] [employer]. Care instructions adapted under license by [facility]. If you have questions about a medical condition or this instruction, always ask your healthcare professional. [employer] disclaims any warranty or liability for your [...] Diagnosis Code ??? Atherosclerotic heart disease of [place] coronary artery without angina pectoris [...] 08/14/2024 12:10 PM EDT [place] [address] Irene Lara MD [facility] [place] [address] documented as of this encounter Procedures Procedure Name Priority Date/Time Associated Diagnosis Comments SPECIMEN TO PATHOLOGY Routine 08/07/2022 3:25 PM EDT SPECIMEN TO PATHOLOGY Routine 08/07/2022 3:25 PM EDT SURGICAL PATHOLOGY REPORT Routine 08/07/2022 2:57 PM EDT Colonoscopy, Flexible W Control Bleeding, Any Method ([id number]) 08/07/2022 2:21 PM EDT Hepatic cirrhosis, unspecified hepatic cirrhosis type, unspecified whether ascites present Screening for colon cancer Colonoscpy, Flex, W/Dir Submuc Inject ([id number]) 08/07/2022 2:21 PM EDT Hepatic cirrhosis, unspecified hepatic cirrhosis type, unspecified whether ascites present Screening for colon cancer Colonoscopy, Remv Lesn, Snare ([id number]) 08/07/2022 2:21 PM EDT Hepatic cirrhosis, unspecified hepatic cirrhosis type, unspecified whether ascites present Screening for colon cancer Upper GI Endoscopy, Diagnostic (10163) 08/07/2022 2:21 PM EDT Hepatic cirrhosis, unspecified hepatic cirrhosis type, unspecified whether ascites present Screening for colon cancer UPPER GI ENDOSCOPY Routine 08/07/2022 2: 10 PM EDT COLONOSCOPY Routine 08/07/2022 2:10 PM EDT documented in this encounter Results * Specimen to Pathology (08/07/2022 3:25 PM EDT) AP Specimen 08/07/2022 3:25 PM EDT 08/07/2022 3:25 PM EDT Narrative [facility] - 08/07/2022 3:25 PM EDT Specimen requisition ordered. ??Separate Pathology report to follow Elin Carlson MD PATHOLOGY/CYTOLOGY O RDERABLES [facility] [place] [address] * Specimen to Pathology (08/07/2022 3:25 PM EDT) AP Specimen 08/07/2022 3:25 PM EDT 08/07/2022 3:25 PM EDT Narrative [facility] - 08/07/2022 3:25 PM EDT Specimen requisition ordered. ??Separate Pathology report to follow Elin Carlson MD PATHOLOGY/CYTOLOGY [facility] [place] [address] * Surgical Pathology Report (08/07/2022 2:57 PM EDT) Final Diagnosis [id number] ? Location: 4T; EA12; A The signing [...] [facility] Dept. of Pathology, [place] [address] Migration Agent: Stefan Min MD, FCAP, ??CLIA Certificate: [id number] SPECIMEN(S) SUBMITTED A - transverse colon polyp, [...] labeled B1-B2. ??shb 08/26/2022 4:10 PM EDT [facility] GI Biopsy 08/07/2022 2:57 PM EDT 08/07/2022 2:57 PM EDT GI Biopsy 08/07/2022 2:57 PM EDT 08/07/2022 2:57 PM EDT Elin Carlson MD PATHOLOGY/CYTOLOGY O MEENU Performing Organization Address [facility]/State/ZIP Co de Phone Number [facility] [place] [address] [facility] [place] [address] * UPPER GI ENDOSCOPY (08/07/2022 2:10 PM EDT) UPPER GI ENDOSCOPY [facility] Endoscopy Procedure Date: 08/07/2022 2:10 PM ? Patient Name: Cookie Salgado ? N: [id number] ? Date of : 1950 ? Age: 71 ? Order #: [id number] ? Instrument Name: [id number]- [id number] ? Procedure: ? Upper GI endoscopy Indications: [...] I personally performed the entire procedure. ? Elni Carlson MD Elin Carlson MD 08/07/2022 2:39:13 PM This report has been signed electronically. Number of Addenda: 0 Note Initiated On: 08/07/2022 2:10 PM [employer] 08/07/2022 2:10 PM EDT Nicolasa Prince PULP DRIER FIRER GENERAL SURGICAL O RDERABLES [employer] * COLONOSCOPY (08/07/2022 2:10 PM EDT) COLONOSCOPY [facility] Endoscopy Procedure Date: 08/07/2022 2:10 PM ? Patient Name: Cookie Salgado ? N: [id number] ? Date of : 1950 ? Age: 71 ? Order #: [id number] ? Instrument Name: [id number]- [id number] ? Procedure: ? Colonoscopy Indications: ? Screening [...] ? was evaluated using the BBPS ? (River Bowel Preparation Scale) ? with scores of: [...] Procedure Code(s): ? --- Professional --- ? 73521, Colonoscopy, flexible; with ? endoscopic mucosal resection ? 70317, 59, Colonoscopy, flexible; ? with removal of tumor(s), polyp(s), ? or other lesion(s) by snare ? technique CPT copyright 2020 [employer]. All rights reserved. The codes documented in this report are preliminary and upon sample dye mixer review may be revised to meet current compliance requirements. Attending Participation: ? I personally performed the entire procedure. ? Elin Carlson MD _ Elin Carlson MD 08/07/2022 3:40:14 PM This report has been signed electronically. Number of Addenda: 0 Note Initiated On: 08/07/2022 2:10 PM [employer] 08/07/2022 2:10 PM EDT Nicolasa Prince PULP DRIER [employer] GENERAL SURGICAL O RDERABLES Performing Organization Address City/State/[facility] Co de Phone Number [employer] documented [...] Leticia Ca, RN)[phone] (Given - Provider: Leticia Ca RN) [...] RN) documented in this encounter Care Teams Financial Specialist Relationship Specialty Start Date End Date Nicolasa Prince APRN [address] [place] [address] PCP - General Family Medicine 01/08/21 documented as of this encounter
--- OUTSIDE RECORDS SUMMARY | 2024-05-26 00:54 | XMS_ITS | Encounter Summary ---
Author Organization [facility] Address [facility] [place] [address] Care Team Providers Care Freight Rate Clerk Name Role Phone Nicolasa Prince APRN Primary Care Provider +1- [phone] Encounter Details Date Type Department Care Team [...] 08/14/2024 12:10 PM EDT [place] [address] Irene Lara MD [facility] [place] [address] documented as of this encounter Visit Diagnoses Not on filedocumented in this encounter Care Teams Freight Rate Clerk Relationship Specialty Start Date End Date Nicolasa Prince APRN [address] [place] [address] PCP - General Family Medicine 01/08/21 documented as of this encounter
--- OUTSIDE RECORDS SUMMARY | 2024-05-26 00:54 | XMS_ITS | Encounter Summary ---
Author Organization [facility] [place] [address] Care Team Providers Care Electrical Installer Name Role Phone Nicolasa Prince APRN Primary Care Provider +1- [phone] Encounter Details Date Type Department Care Team (Late st Contact Info) Description 06/09/2022 Telephone [place] [address] Mai Larson Social History Tobacco Use Types Packs/Day Years Used Date Smoking Tobacco: Former Smokeless Tobacco: Never Sex and Gender Information Value Date Recorded Sex Assigned at Not on file Gender Identity Not on file Sexual Orientation Not on file documented as of this encounter Miscellaneous Notes * Telephone Encounter - Mai Larson - 06/09/2022 10:01 AM EST Cookie Salgado [id number] Diagnosis/Indication: cirrhosis screen for varices, screening colonoscopy [...] Upper Endoscopy & Colonoscopy before? Yes: Date [facility], 5.5 years ago, doesn't remember [...] your procedure. Who will likely be your stock car driver for the procedure? *Please Verify the [...] 08/14/2024 12:10 PM ED[place] [address] Irene Lara MD [facility] [place] [address] documented as of this encounter Visit Diagnoses Not on filedocumented in this encounter Care Teams Electrical Installer Relationship Specialty Start Date End Date Nicolasa Prince APRN [address] [place] [address] PCP - General Family Medicine 01/08/21 documented as of this encounter
--- OUTSIDE RECORDS SUMMARY | 2024-05-26 00:54 | XMS_ITS | Encounter Summary ---
Author Organization [facility] Address [facility] [place] [address] Care Team Providers Care Pay Station Collector Name Role Phone Nicolasa Prince APRN Primary Care Provider +1- [phone] Encounter Details Date Type Department Care Team (Late st Contact Info) Description 05/23/2022 Telephone [place] [address] Alisia Driver Social History Tobacco Use Types [...] it can be handled by: Any Endoscopy Assistant Real Estate Manager documented in this encounter Plan of Treatment Upcoming Encounters Date Type Department Care Team (Late st Contact Info) Description 08/14/2024 12:10 PM [place] [address] Irene Lara MD [facility] [place] [address] documented as of this encounter Visit Diagnoses Not on filedocumented in this encounter Care Teams Pay Station Collector Relationship Specialty Start Date End Date Nicolasa Prince, YULIA [address] [place] [address] PCP - General Family Medicine 01/08/21 documented as of this encounter
--- OUTSIDE RECORDS SUMMARY | 2024-05-26 00:54 | XMS_ITS | Encounter Summary ---
Author Organization [facility] [place] [address] Care Team Providers Care Licensed Prosthetist Name Role Phone Nicolasa Prince APRN Primary Care Provider +1- [phone] Reason for Visit * Auth/Cert (Routine) Specialty Diagnoses / Procedures Referred By Contkolby t Referred To Contact Diagnoses Encounter for screening for malignant neoplasm of colon 6 month Procedures PRO COLONOSCOPY, DIAGNOSTIC PRO COLONOSCOPY, BIOPSY PRO COLONOSCOPY, REMV LESN, SNARE PRO ANES, LWR INTESTINE, SCREENING COLONOSCOPY COLONOSCOPY,SCREENING (WRVU 3.26) Elin Carlson MD [facility] [place] [address] [facility] Referral ID Status Reason Start Date Expiration Date Visits Re quested Visits Authorized [id number] 1 1 Encounter Details Date Type Department Care Team (Late st Contact Info) Description 02/19/2023 1:45 PM EDT - 02/19/2023 2:30 PM EDT [place] [address] Elin Carlson MD [facility] [place] [address] COLONOSCOPY, POLYPECTOMY, REMOVAL LESION BY SNARE (WRVU [...] occurs, please contact your Doctor. Please call [phone] before 8pm Mon-Fri with problems, questions or concerns. If you call after 8pm or on weekends, call the Hospital at [phone] and ask to speak to the Cut And Cover Line Worker cash applications manager and the bottle washing machine operator will contact that person for you. When should you call for help? Call [phone] anytime you think you may need emergency [...] After Visit Summary and more online at [email or web address] If you would like to provide [...] cost to you. Content Version: 12.2 ?? [id number] [employer]. Care instructions adapted under license by [facility]. If you have questions about a medical condition or this instruction, always ask your healthcare professional. [employer] disclaims any warranty or liability for your [...] List Diagnosis Code Atherosclerotic heart disease of [place] coronary artery without angina pectoris I25.10 EXAM: [...] 08/14/2024 12:10 PM [place] [address] Irene Lara MD [facility] [place] [address] documented as of this encounter Procedures Procedure Name Priority Date/Time Associated Diagnosis Comments SURGICAL PATHOLOGY REPORT Routine 02/19/2023 2:32 PM EDT SPECIMEN TO PATHOLOGY Routine 02/19/2023 2:32 PM EDT SPECIMEN TO PATHOLOGY Routine 02/19/2023 2:32 PM EDT Colonoscopy, Gauri Zavala ([id number]) 02/19/2023 1:54 PM EDT 6 month COLONOSCOPY Routine 02/19/2023 1:47 PM EDT documented in this encounter Results * Surgical Pathology Report (02/19/2023 2:32 PM EDT) Final Diagnosis [id number] ? Location: 4T; EA12; A The signing pathologist has (i) examined the relevant preparation(s) for the specimen(s) and (ii) rendered or confirmed the diagnosis(es). . ?Surgical Pathology DIAGNOSIS A - Ascending colon polyps 2mm, 1mm, resection: - ??Fragments of tubular adenoma. B - Rectal polyp 1mm, resection: - ??Hyperplastic polyp. CR-PX Electronically signed by: ?Per LUTHER, Arpit Verified: ??03/01/2023 16:31 ??Pathologist Performed at: ??-[facility] [place], [place] [address] Incident Analyst: Stefan Min MD, FCAP, ??CLIA Certificate: [id number] SPECIMEN(S) SUBMITTED A - ascending colon polyps [...] MD PATHOLOGY/CYTOLOGY O MEENU Performing Organization Address City/[facility]/ZIP Co de Phone Number [place], [place] [id number] [place] [address] [place] [address] * Specimen to Pathology (02/19/2023 2:32 PM EDT) AP Specimen 02/19/2023 2:32 PM EDT 02/19/2023 2:32 PM EDT Narrative [facility] - 02/19/2023 2:32 PM EDT Specimen requisition ordered. ??Separate Pathology report to follow Elin Carlson MD PATHOLOGY/CYTOLOGY O MEENU Performing Organization Address City/[facility]/[place] [address] * Specimen to Pathology (02/19/2023 2:32 PM EDT) AP Specimen 02/19/2023 2:32 PM EDT 02/19/2023 2:32 PM EDT Narrative [facility] - 02/19/2023 2:32 PM EDT Specimen requisition ordered. ??Separate Pathology report to follow Elin Carlson MD PATHOLOGY/CYTOLOGY O MEENU Performing Organization Address City/[facility]/ZIP Co de Phone Number [facility] [place] [address] * COLONOSCOPY (02/19/2023 1:47 PM EDT) COLONOSCOPY [facility] Endoscopy Procedure Date: 02/19/2023 1:47 PM ? Patient Name: Cookie Salgado ? Date of : 1950 ? Age: 72 ? Order #: [id number] ? Instrument Name: [id number] ? Procedure: ? Colonoscopy Indications: ? Follow-up for history of ? adenomatous polyps in the colon Providers: ? Elin Carlson MD, Damon Jean ? Chittenden, Lucy F. Antoinette Referring MD: ?Nicolasa H. Philte Medicines: ? Midazolam 4 mg IV, Fentanyl [...] ? was evaluated using the BBPS ? ([place] Bowel Preparation Scale) ? with scores of: [...] Procedure Code(s): ? --- Professional --- ? 26693, Colonoscopy, flexible; with ? removal of tumor(s), polyp(s), or ? other lesion(s) by snare technique CPT copyright 2021 [employer]. All rights reserved. The codes documented in this report are preliminary and upon live in housekeeper nanny review may be revised to meet current compliance requirements. Attending Participation: ? I personally performed the entire procedure. ? Elin Carlson MD _ Elin Carlson MD 02/19/2023 2:36:53 PM This report has been signed electronically. Number of Addenda: 0 Note Initiated On: 02/19/2023 1:47 PM PROVATION 02/19/2023 1:47 PM EDT Nicolasa Prince COMPUTER APPLICATIONS ENGINEER GENERAL SURGICAL O RDERABLES PROVATION documented in [...] RN) documented in this encounter Care Teams Licensed Prosthetist Relationship Specialty Start Date End Date Nicolasa Prince APRN [address] [place] [address] PCP - General Family Medicine 01/08/21 documented as of this encounter
--- OUTSIDE RECORDS SUMMARY | 2024-05-26 00:54 | XMS_ITS | Encounter Summary ---
Author Organization [facility] [place] [address] Care Team Providers Care Injection Molding Supervisor Name Role Phone Nicolasa Prince APRN Primary Care Provider +1- [phone] Encounter Details Date Type Department Care Team (Late st Contact Info) Description 02/10/2022 11:30 AM EDT Office [place] [address] Irene Lamar MD [facility] [place] [address] Autoimmune hepatitis; Primary biliary cholangitis; Hepatic cirrhosis, [...] [place] and she was managed by a casting director at [facility]. Her records were [...] normal since approximately 2016. She moved to [place] in 2019.. Living with her two brothers. [...] for HCC screening, may time this with EGD/[place] Time spent with patient: 40 min Time spent reviewing records, documentin min Irene Lamar MD Section of Gastroenterology & Hepatology [address] [place] [address] Cc: Nicolasa Prince APRN SURGICAL PATHOLOGY REPORT ? Patient: PREMA SALGADO ?MR #: [id number] ?Submitted by: Elie Moreno MD FINAL DIAGNOSIS [...] the ductules cannot be definitively distinguished from still[place]am[place] bile ducts. ??There is patchy periportal hepatocellular [...] had a prior liver biopsy reviewed at [facility] (see accession number [id number]), although the slides are not available for direct comparison at this time. ??However, based on the microscopic description, it appears that fibrosis may have progressed. documented in this encounter Procedure Notes * Irene Lamar MD - 02/10/2022 11:30 AM EDTAssociated Order(s): FIBROSCAN Procedure(s): FIBROSCAN Pre-Procedure Diagnose(s): Autoimmune hepatitis; Primary biliary cholangitis [facility] Liver Fibrosis Assessment Report Indication: AIH/PBC, assess for portal htn Performed by: HOWARD Rockwell Procedure: Vibration Controlled Transient Elastography (VCTE) or Fibroscan [place] Protocol: Patient's identity, procedure and site were [...] 08/14/2024 12:10 PM [place] [address] Irene Lamar MD [facility] [place] [address] documented as of this encounter Procedures Procedure Name Priority Date/Time Associated Diagnosis Comments [id number] Routine 02/10/2022 11:30 AM EDT Autoimmune hepatitis [...] PM Electronically signed by: Kashmir Lindsay MD, [facility] ([phone]), at 08/17/2022 2:04 PM Thank you for letting us participate in the care of this patient. If you are a health care provider and have any questions regarding this report, please contact the number above. For patients who have questions, please contact the health transitional care manager that requested your imaging first. ?Kashmir Lindsay, Staff Physician Electronically Signed Final Report ?? 08/17/2022 02:12 pm Narrative 08/17/2022 2:12 PM EDT Abdominal ? (Signed Final 08/17/2022 02:12 pm) PATIENT INFO: ID #: ? [id number] ?: ??[birth year] (71 yrs)(F) Name: ? PERMA SALGADO ?Visit Date: 08/17/2022 10:53 am PERFORMED BY: Attending: ?Neftali LUTHER, Kashmir Resident: ? Milagros LUTHER, James Curtis Performed By: ? Angelina Crystal RDMS Referred By: ?IRENE LAMAR Location: ? [place] SERVICE(S) PROVIDED: [facility] - Hepatology Protocol - Abdominal ?62755 Limited Survey Single Organ or Quadrant - [id number] INDICATIONS: cirrhosis, screen for hcc; assess for [...] 08/17/2022 02:12 pm) PATIENT INFO: ID #: [id number] : [birth year] (71 yrs)(F) Name: PREMA SALGADO Visit Date: 08/17/2022 10:53 am PERFORMED BY: Attending: Kashmir Lindsay MD Resident: James Linares MD Performed By: Angelina Crystal RDMS Referred By: IRENE LAMAR Location: [place] SERVICE(S) PROVIDED: [facility] - Hepatology Protocol - Abdominal 19591 Limited Survey Single Organ or Quadrant - [id number] INDICATIONS: cirrhosis, screen for hcc; assess for [...] PM Electronically signed by: Kashmir Lindsay MD, [facility] ([phone]), at 08/17/2022 2:04 PM Thank you for letting us participate in the care of this patient. If you are a health care provider and have any questions regarding this report, please contact the number above. For patients who have questions, please contact the health transitional care manager that requested your imaging first. Kashmir Lindsay, Staff Physician Electronically Signed Final Report 08/17/2022 02:12 pm Irene Lamar MD IMG US GEN ORDERABLE S * [id number] (02/10/2022 11:30 AM EDT) Narrative Irene Lamar MD - 02/10/2022 11:30 AM EDT Irene Lamar MD ? 02/11/2022 ??8:29 AM [facility] Liver Fibrosis Assessment Report Indication: ??AIH/PBC, assess for portal htn Performed by: ??HOWARD Rockwell Procedure: Vibration Controlled Transient Elastography (VCTE) or Fibroscan [place] Protocol: Patient's identity, procedure and site were [...] present documented in this encounter Care Teams Injection Molding Supervisor Relationship Specialty Start Date End Date Nicolasa Prince APRN [address] [place] [address] PCP - General Family Medicine 01/08/21 documented as of this encounter
--- OUTSIDE RECORDS SUMMARY | 2024-05-26 00:54 | XMS_ITS | Encounter Summary ---
Author Organization [facility] [place] [address] Care Team Providers Care Supplier Diversity Director Name Role Phone Nicolasa Prince APRN Primary Care Provider +1- [phone] Encounter Details Date Type Department Care Team (Late st Contact Info) Description 03/10/2023 Telephone [place] [phone] Irene Lara MD [facility] [place] [address] Social History Tobacco Use Types Packs/Day Years [...] Lara MD Section of Gastroenterology & Hepatology [address] [place] [address] documented in this encounter Plan of Treatment Upcoming Encounters Date Type Department Care Team (Late st Contact Info) Description 08/14/2024 12:10 PM EDT [place] [address] Irene Lara MD [facility] [place] [address] documented as of this encounter Visit Diagnoses Not on filedocumented in this encounter Care Teams Supplier Diversity Director Relationship Specialty Start Date End Date Nicolasa Prince APRN [address] [place] [address] PCP - General Family Medicine 01/08/21 documented as of this encounter
--- OUTSIDE RECORDS SUMMARY | 2024-05-26 00:54 | XMS_ITS | Encounter Summary ---
Author Organization [facility] [place] [address] Care Team Providers Care Corner Trimmer Operator Name Role Phone Nicolasa Prince APRN Primary Care Provider +1- [phone] Encounter Details Date Type Department Care Team (Late st Contact Info) Description 07/22/2022 External Results [place] [address] Irene Lara MD [facility] [place] [address] Social History Tobacco Use Types Packs/Day Years [...] 08/14/2024 12:10 PM EDT [place] [address] Irene Lara MD [facility] [place] [address] documented as of this encounter Procedures Procedure [...] on filedocumented in this encounter Care Teams Corner Trimmer Operator Relationship Specialty Start Date End Date Nicolasa Prince APRN [address] [place] [address] PCP - General Family Medicine 01/08/21 documented as of this encounter
--- OUTSIDE RECORDS SUMMARY | 2024-05-26 00:54 | XMS_ITS | Encounter Summary ---
Author Organization [facility] [place] [address] Care Team Providers Care Traveling Storekeeper Name Role Phone Nicolasa Prince APRN Primary Care Provider +1- [phone] Encounter Details Date Type Department Care Team (Late st Contact Info) Description 10/29/2021 Orders [place] [address] Irene Lara MD [facility] [place] [address] Type 2 diabetes mellitus with other specified complication, unspecified whether director long term care insulin use Social History Tobacco Use [...] 08/14/2024 12:10 PM [place] [address] Irene Lara MD [facility] [place] [address] documented as of this encounter Results * (ABNORMAL) Hemoglobin A1c (02/10/2022 11:06 AM EDT) Hemoglobin A1c 7.0(H) 4.3 - 5.6 % [facility] Comment: Reference Range: 4.3 [...] Mellitus, Diabetes Care 2013; 36: Suppl. 1, S6774 Estimated Average Glucose 155 mg/dL [facility] Comment: eAG [...] into estimated average glucose values. ??Diabetes Care 2008:31(8):4518-2543. Blood 02/10/2022 11:0 6 AM EDT 02/10/2022 11:10 AM EDT Narrative Resulting Agency Comment Spec In Lab Irene Lara MD CHEMISTRY ORDERABLES [facility] [place] [address] documented in this encounter Visit Diagnoses Diagnosis Type 2 diabetes mellitus with other specified complication, unspecified whether director long term care insulin use documented in this encounter Care Teams Traveling Storekeeper Relationship Specialty Start Date End Date Nicolasa Prince APRN [address] [place] [address] PCP - General Family Medicine 01/08/21 documented as of this encounter
--- OUTSIDE RECORDS SUMMARY | 2024-05-26 00:54 | XMS_ITS | Encounter Summary ---
Author Organization [facility] [place] [address] Care Team Providers Care Riveter Automobile Brakes Name Role Phone Nicolasa Prince APRN Primary Care Provider +1- [phone] Encounter Details Date Type Department Care Team (Late Contact Info) Description 01/27/2023 External [place] [address] Irene Lara MD [facility] [place] [address] Social History Tobacco Use Types Packs/Day Years [...] 08/14/2024 12:10 PM [place] [address] Irene Lara MD [facility] [place] [address] documented as of this encounter Procedures Procedure [...] on filedocumented in this encounter Care Teams Riveter Automobile Brakes Relationship Specialty Start Date End Date Nicolasa Prince APRN [address] [place] [address] PCP - General Family Medicine 01/08/21 documented as of this encounter
--- OUTSIDE RECORDS SUMMARY | 2024-05-26 00:54 | XMS_ITS | Encounter Summary ---
Author [facility] [place] [address] Care Team Providers Care Channeler Name Role Phone Nicolasa Prince APRN Primary Care Provider +1- [phone] Encounter Details Date Type Department Care Team (Late st Contact Info) Description 12/09/2022 Telephone [place] [address] Mai Larson Social History Tobacco Use Types [...] Larson - 12/09/2022 2:33 PM EDT Cookie Charumyriam [id number] Diagnosis/Indication: 6 mo Please review patient chart [...] procedure? No You must have a responsible alliance party who will drive you to your procedure, stay on campus for the entire duration of your procedure, and drive you home from your procedure. Who will likely be your auto crane driver for the procedure? *Please Verify the [...] 08/14/2024 12:10 PM EDT [place] [address] Irene Lara MD [facility] [place] [address] documented as of this encounter Visit Diagnoses Not on filedocumented in this encounter Care Teams Channeler Relationship Specialty Start Date End Date Nicolasa Prince APRN [address] [place] [address] PCP - General Family Medicine 01/08/21 documented as of this encounter
--- OUTSIDE RECORDS SUMMARY | 2024-05-26 00:54 | XMS_ITS | Encounter Summary ---
Author Organization [facility] [address] Care Team Providers Care Production Line Mechanic Name Role Phone Nicolasa Prince APRN Primary Care Provider +1- [phone] Reason for Visit * Auth/Cert (Routine) Specialty Diagnoses / Procedures Referred By Minh t Referred To Contact Diagnoses Encounter for screening for malignant neoplasm of colon 6 month Procedures PRO COLONOSCOPY, DIAGNOSTIC PRO COLONOSCOPY, BIOPSY PRO COLONOSCOPY, REMV LESN, SNARE PRO ANES, LWR INTESTINE, SCREENING COLONOSCOPY COLONOSCOPY,SCREENING (WRVU 3.26) Elin Carlson MD [facility] [place] [address] [facility] Referral ID Status Reason Start Date Expiration Date Visits Re quested Visits Authorized [id number] 1 1 Encounter Details Date Type Department Care Team (Latest Contact Info) Description 02/19/2023 12:41 PM EDT - 02/19/2023 3:29 PM EDT Hospital Encounter [place] [address] Elin Carlson MD [facility] [place] [address] Discharge Disposition: Home Social History Tobacco Use [...] occurs, please contact your Doctor. Please call [phone] before 8pm Mon-Fri with problems, questions or concerns. If you call after 8pm or on weekends, call the Hospital at [phone] and ask to speak to the Travel Clerk production control planner and the tank house operator helper will contact that person for you. When should you call for help? Call [phone] anytime you think you may need emergency [...] cost to you. Content Version: 12.2 ?? [id number] [employer]. Care instructions adapted under license by [facility]. If you have questions about a medical condition or this instruction, always ask your healthcare professional. [employer] disclaims any warranty or liability for your [...] List Diagnosis Code Atherosclerotic heart disease of [place] coronary artery without angina pectoris I25.10 EXAM: [...] 08/14/2024 12:10 PM EDT [place]ment [place] [address] Irene Lara MD [facility] [place] [address] documented as of this encounter Procedures Procedure Name Priority Date/Time Associated Diagnosis Comments SURGICAL PATHOLOGY REPORT Routine 02/19/2023 2:32 PM EDT SPECIMEN TO PATHOLOGY Routine 02/19/2023 2:32 PM EDT SPECIMEN TO PATHOLOGY Routine 02/19/2023 2:32 PM EDT Colonoscopy, RemGauri Leyva ([id number]) 02/19/2023 1:54 PM EDT 6 month COLONOSCOPY Routine 02/19/2023 1:47 PM EDT documented in this encounter Results * Surgical Pathology Report (02/19/2023 2:32 PM EDT) Final Diagnosis [id number] ? Location: 4T; EA12; A The signing pathologist has (i) examined the relevant preparation(s) for the specimen(s) and (ii) rendered or confirmed the diagnosis(es). . ?Surgical Pathology DIAGNOSIS A - Ascending colon polyps 2mm, 1mm, resection: - ??Fragments of tubular adenoma. B - Rectal polyp 1mm, resection: - ??Hyperplastic polyp. CR-PX Electronically signed by: ?Per LUTHER, Arpit Verified: ??03/01/2023 16:31 ??Pathologist Performed at: ??-[facility] Dept. of [place], [place] [address] Wax Pourer: Stefan Min MD, FCAP, ??CLIA Certificate: [id number] SPECIMEN(S) SUBMITTED A - ascending colon polyps [...] labeled B1. ??sdy 03/01/2023 4:31 PM EDT [facility] GI Biopsy 02/19/2023 2:32 PM EDT 02/19/2023 2:32 PM EDT GI Biopsy 02/19/2023 2:32 PM EDT 02/19/2023 2:32 PM EDT Elin Carlson MD PATHOLOGY/CYTOLOGY O MEENU Performing Organization Address City/[facility] [place] [address] [place] [address] * Specimen to Pathology (02/19/2023 2:32 PM EDT) AP Specimen 02/19/2023 2:32 PM EDT 02/19/2023 2:32 PM EDT Narrative [facility] - 02/19/2023 2:32 PM EDT Specimen requisition ordered. ??Separate Pathology report to follow Elin Carlson MD PATHOLOGY/CYTOLOGY O MEENU Performing Organization Address [facility] [place] [address] * Specimen to Pathology (02/19/2023 2:32 PM EDT) AP Specimen 02/19/2023 2:32 PM EDT 02/19/2023 2:32 PM EDT Narrative [facility] - 02/19/2023 2:32 PM EDT Specimen requisition ordered. ??Separate Pathology report to follow Elin Carlson MD PATHOLOGY/CYTOLOGY O MEENU Performing Organization Address [facility] [place] [address] * COLONOSCOPY (02/19/2023 1:47 PM EDT) COLONOSCOPY [facility] Endoscopy Procedure Date: 02/19/2023 1:47 PM ? Patient Name: Cookie Salgado ? Date of : 1950 ? Age: 72 ? Order #: [id number] ? Instrument Name: [id number] ? Procedure: ? Colonoscopy Indications: ? Follow-up for history of ? adenomatous polyps in the colon Providers: ? Elin Carlson MD, Damon Jean ? Lucy Archer MD: ?Nicolasa H. Philte Medicines: ? Midazolam [...] ? was evaluated using the BBPS ? (Napoleon Bowel Preparation Scale) ? with scores of: [...] Procedure Code(s): ? --- Professional --- ? 97220, Colonoscopy, flexible; with ? removal of tumor(s), polyp(s), or ? other lesion(s) by snare technique CPT copyright 2021 [employer]. All rights reserved. The codes documented in this report are preliminary and upon medication nurse review may be revised to meet current compliance requirements. Attending Participation: ? I personally performed the entire procedure. ? Elin Carlson MD _ Elin Carlson MD 02/19/2023 2:36:53 PM This report has been signed electronically. Number of Addenda: 0 Note Initiated On: 02/19/2023 1:47 PM PROVATION 02/19/2023 1:47 PM EDT Nicolasa Prince L[facility]ED [facility] PROVATION documented in [...] RN) documented in this encounter Care Teams Production Line Mechanic Relationship Specialty Start Date End Date Nicolasa Prince APRN [address] [place] [address] PCP - General Family Medicine 01/08/21 documented as of this encounter
--- OUTSIDE RECORDS SUMMARY | 2024-05-26 00:54 | XMS_ITS | Encounter Summary ---
Author Organization [facility] [place] [address] Care Team Providers Care Cold Saw Operator Name Role Phone Nicolasa Prince APRN Primary Care Provider +1- [phone] Encounter Details Date Type Department Care Team (Late st Contact Info) Description 11/24/2021 External [place] [address] Irene Lara MD [facility] [place] [address] Social History Tobacco Use Types Packs/Day Years [...] 08/14/2024 12:10 PM [place] [address] Irene Lara MD [facility] [place] [address] documented as of this encounter Procedures Procedure Name Priority Date/Time Associated Diagnosis Comments EXTERNAL LAB CBC CMP THYROID RESULTS PANEL Routine 11/20/2021 documented in this encounter Results * CBC / CMP / Thyroid External Results (11/20/2021) Protein, Total 7.7 Albumin 3.8 Bilirubin, Total 1.1 Alkaline Phosphatase 68 Aspartate Aminotransferase 30 Alanine Aminotransferase 37 Hemoglobin A1c 7.9 Historical Provider MD EXTERNAL LAB [place] [facility] documented in this encounter Visit Diagnoses Not on filedocumented in this encounter Care Teams Cold Saw Operator Relationship Specialty Start Date End Date Nicolasa Prince, FLATWORK FINISHER [address] [place] [address] PCP - General Family Medicine 01/08/21 documented as of this encounter
--- OUTSIDE RECORDS SUMMARY | 2024-05-26 00:54 | XMS_ITS | Encounter Summary ---
Author Organization [facility] [place] [address] Care Team Providers Care Medical Records Administrator Name Role Phone Nicolasa Prince APRN Primary Care Provider +1- [phone] Encounter Details Date Type Department Care Team (Latest Contact Info) Description 03/30/2023 10:15 AM EST Laboratory Appointment Lab [address] [place] [address] Primary biliary cholangitis; Hepatic cirrhosis, unspecified hepatic [...] 08/14/2024 12:10 PM [place] [address] Irene Lara MD [facility] [place] [address] documented as of this encounter Procedures Procedure [...] 10:23 AM EST) Neutrophil % 64.6 % [facility] Neutrophil Absolute 2.35 1.70 - 6.10 x10(3)/mc L [facility] Lymph % 22.9 % [facility] Lymphocytes Abs 0.8(L) 0.9 - 3.2 x10(3)/mc L [facility] Monocyte % 10.5 % [facility] Monocyte Abs 0.4 0.3 - 0.9 x10(3)/mc L [facility] Eos % 1.1 % [facility] Eosinophils Abs 0.0 0.0 - 0.4 x10(3)/mc L [facility] Basophil % 0.6 % [facility] Baso Absolute 0.0 0.0 - 0.1 x10(3)/mc L [facility] Immature Gran % 0.30 % [facility] Comment: Immature granulocytes(IG's)percentage and absolute count will include metamyelocytes, myelocytes, and promyelocytes. Blood smears from CBCs yielding IG's will be scanned manually for concordance. If this scan disagrees with the automated IG or if promyelocytes are noted, a manual differential will be performed. Immature Gran Absolute 0.01 0.00 - 0.04 x10(3)/mc L [facility] Blood 03/30/2023 10:2 3 AM EST 03/30/2023 10:31 AM EST Narrative Resulting Agency Comment Spec In Lab Irene Lara MD HEMATOLOGY ORDERABLE S [facility] [place] [address] * (ABNORMAL) Hemogram (03/30/2023 10:23 AM EST) White Blood Cell 3.6(L) 4.0 - 9.5 x10(3)/mc L [facility] Red Blood Cell 5.01 4.00 - 5.21 x10(6)/mc L [facility] Hemoglobin 15.8(H) 11.7 - 15.5 g/dL [facility] Hematocrit 46.6(H) 35.7 - 45.8 % [facility] Mean Cell Volume 93.0 82.6 - 94.4 fL [facility] Mean Cell Hemoglobin 31.5 27.1 - 32.0 pg [facility] Mean Cell Hemoglobin Concentration 33.9 31.7 - 35.0 g/dL [facility] Platelet 131(L) 145 - 357 x10(3)/mc L [facility] RDW Standard Deviation 44.9 37.0 - 46.0 fL [facility] RDW coefficient of variation 13.2 11.5 - 14.1 % [facility] Mean Platelet Volume 10.4 7.6 - 12.9 fL [facility] NRBC% auto 0.0 % [facility] NRBC Absolute 0.000 0.000 - 0.000 x10(3)/mc L [facility] Blood 03/30/2023 10:2 3 AM EST 03/30/2023 10:31 AM EST Narrative Resulting Agency Comment Spec In Lab Irene Lara MD HEMATOLOGY ORDERABLE S [facility] [place] [address] * (ABNORMAL) Comprehensive metabolic panel (non-fasting) (03/30/2023 10:23 AM EST) Glucose 110 65 - 199 mg/dL [facility] Comment:Diabetes: >=200 mg/d L plus symptoms Blood Urea Nitrogen 20(H) 8 - 18 mg/dL [facility] Creatinine 0.82 0.70 - 1.20 mg/dL [facility] Sodium 140 135 - 145 mmol/L [facility] Potassium 4.1 3.5 - 5.0 mmol/L [facility] Comment: Please note: ??Patients with WBC >100,000 may have falsely elevated Potassium levels. ??For accurate Potassium quantification in these patients send serum separator tube (gold top) for subsequent determinations. ??Contact the Clinical Chemistry Laboratory if there are any questions. Chloride 105 98 - 107 mmol/L [facility] Carbon Dioxide 22 22 - 31 mmol/L [facility] Anion Gap 13 5 - 15 mmol/L [facility] Calcium 9.8 8.5 - 10.5 mg/dL [facility] Protein, Total 7.2 6.1 - 8.0 g/dL [facility] Albumin 4.4 3.2 - 5.2 g/dL [facility] Aspartate Aminotransferase 31(H) 0 - 30 unit/L [facility] Alanine Aminotransferase 24 0 - 30 unit/L [facility] Alkaline Phosphatase 64 35 - 105 unit/L [facility] Bilirubin, Total 0.7 0.2 - 1.3 mg/dL [facility] Est Glomerular Filtration Rate 77 >=60 mL/min/1. 73 m?? [facility] Comment: This patient's estimated [...] Lara MD CHEMISTRY ORDERABLES Performing Organization Address [facility] Co de Phone Number [facility] [place] [address] * Prothrombin Time (03/30/2023 10:23 AM EST) Prothrombin Time 12.0 9.4 - 12.5 sec [facility] International Normalization Ratio 1.1 [facility] Comment: An INR <2.0 [...] ORDERABLE S Performing Organization Address [facility] Co de Phone Number [facility] [place] [address] * AFP tumor marker (03/30/2023 10:23 AM EST) Alpha Fetoprotein 2.8 <=8.3 ng/mL [facility] Comment: This result was generated using a Mendoza Jonathan immunoassay. ??Results obtained from other methods or manufacturers cannot be used interchangeably with this method. Blood 03/30/2023 10:2 3 AM EST 03/30/2023 10:30 AM EST Narrative Resulting Agency Comment Spec In Lab Irene Lara MD CHEMISTRY ORDERABLES Performing Organization Address [facility] Co de Phone Number [facility] [place] [address] documented in this encounter Visit Diagnoses Diagnosis Primary biliary cholangitis Hepatic cirrhosis, unspecified hepatic cirrhosis type, unspecified whether ascites present documented in this encounter Care Teams Medical Records Administrator Relationship Specialty Start Date End Date Nicolasa Prince APRN [address] [place] [address] PCP - General Family Medicine 01/08/21 documented as of this encounter
--- OUTSIDE RECORDS SUMMARY | 2024-05-26 00:54 | XMS_ITS | Encounter Summary ---
Author Organization [facility] [place] [address] Care Team Providers Care Seismic Prospecting Observer Helper Name Role Phone Nicolasa Prince APRN Primary Care Provider +1- [phone] Reason for Visit * Reason Comments Medication Refill Encounter Details Date Type Department Care Team (Late st Contact Info) Description 07/17/2022 [place]ill [place] [phone] Irene Lara MD [facility] [place] [address] Autoimmune hepatitis Social History Tobacco Use Types [...] labs. She would like orders faxed to [facility]. Orders sent. Provided patient with contact information for [facility] Lab. documented in this encounter Plan of Treatment Upcoming Encounters Date Type Department Care Team (Late st Contact Info) Description 08/14/2024 12:10 PM [place] [address] Irene Lara MD [facility] [place] [address] documented as of this encounter Visit Diagnoses Diagnosis Autoimmune hepatitis documented in this encounter Care Teams Seismic Prospecting Observer Helper Relationship Specialty Start Date End Date Nicolasa Prince APRN [address] [place] [address] PCP - General Family Medicine 01/08/21 documented as of this encounter
--- OUTSIDE RECORDS SUMMARY | 2024-05-26 00:54 | XMS_ITS | Encounter Summary ---
Author Organization [facility] [place] [address] Care Team Providers Care Search Director Name Role Phone Nicolasa Prince APRN Primary Care Provider +1- [phone] Encounter Details Date Type Department Care Team (Latest Contact Info) Description 02/10/2022 10:15 AM EDT Laboratory Appointment Lab [address] [place] [address] Primary biliary cholangitis; Type 2 diabetes mellitus with other specified complication, unspecified whether custodial insulin use Social History Tobacco Use Types [...] 08/14/2024 12:10 PM EDT [place] [address] Irene Lara MD [facility] [place] [address] documented as of this encounter Procedures Procedure Name Priority Date/Time Associated Diagnosis Comments HEMOGRAM Routine 02/10/2022 11:06 AM EDT DIFFERENTIAL, AUTOMATED Routine 02/10/2022 11:06 AM EDT HC HEMOGLOBIN A1C Routine 02/10/2022 11: 06 AM EDT Type 2 diabetes mellitus with other specified complication, unspecified whether salvage determiner insulin use HC VENIPUNCTURE Routine 02/10/2022 11:06 AM EDT Primary biliary cholangitis documented in this encounter Results * (ABNORMAL) Differential, Automated (02/10/2022 11:06 AM EDT) Neutrophil % 70.8 % [facility] Neutrophil Absolute 2.95 1.70 - 6.10 x10(3)/mc L [facility] Lymph % 18.2 % [facility] Lymphocytes Abs 0.8(L) 0.9 - 3.2 x10(3)/mc L [facility] Monocyte % 9.1 % [facility] Monocyte Abs 0.4 0.3 - 0.9 x10(3)/mc L [facility] Eos % 1.2 % [facility] Eosinophils Abs 0.0 0.0 - 0.4 x10(3)/mc L [facility] Basophil % 0.5 % [facility] Baso Absolute 0.0 0.0 - 0.1 x10(3)/mc L [facility] Immature Gran % 0.20 % [facility] Comment: Immature granulocytes(IG's)percentage and absolute count will include metamyelocytes, myelocytes, and promyelocytes. Blood smears from CBCs yielding IG's will be scanned manually for concordance. If this scan disagrees with the automated IG or if promyelocytes are noted, a manual differential will be performed. Immature Gran Absolute 0.01 0.00 - 0.04 x10(3)/mc L [facility] Blood Venous Draw / Unknown 02/10/2022 11:06 AM EDT 02/10/2022 12:06 PM EDT Narrative Resulting Agency Comment Spec In Lab Irene Lara MD HEMATOLOGY ORDERABLE S [facility] [place] [address] * (ABNORMAL) Hemogram (02/10/2022 11:06 AM EDT) White Blood Cell 4.2 4.0 - 9.5 x10(3)/mc L [facility] Red Blood Cell 5.02 4.00 - 5.21 x10(6)/ L [facility] Hemoglobin 15.8(H) 11.7 - 15.5 g/dL [facility] Hematocrit 45.7 35.7 - 45.8 % [facility] Mean Cell Volume 91.0 82.6 - 94.4 fL [facility] Mean Cell Hemoglobin 31.5 27.1 - 32.0 pg [facility] Mean Cell Hemoglobin Concentration 34.6 31.7 - 35.0 g/dL [facility] Platelet 118(L) 145 - 357 x10(3)/ L [facility] RDW Standard Deviation 43.9 37.0 - 46.0 fL [facility] RDW coefficient of variation 13.1 11.5 - 14.1 % [facility] Mean Platelet Volume 10.4 7.6 - 12.9 fL [facility] NRBC% auto 0.0 % [facility] NRBC Absolute 0.000 0.000 - 0.000 x10(3)/[facility] Blood Venous Draw / Unknown 02/10/2022 11:06 AM EDT 02/10/2022 12:06 PM EDT Narrative Resulting Agency Comment Spec In Lab Irene Lara MD HEMATOLOGY ORDERABLE S [facility] [place] [address] * (ABNORMAL) Hemoglobin A1c (02/10/2022 11:06 AM EDT) Hemoglobin A1c 7.0(H) 4.3 - 5.6 % [facility] Comment: Reference Range: 4.3 [...] Mellitus, Diabetes Care 2013; 36: Suppl. 1, O67-03 Estimated Average Glucose 155 mg/dL [facility] Comment: eAG [...] into estimated average glucose values. ??Diabetes Care 2008:31(8):0369-5619. Blood 02/10/2022 11:0 6 AM EDT 02/10/2022 11:10 AM EDT Narrative Resulting Agency Comment Spec In Lab Irene Lara MD CHEMISTRY ORDERABLES [facility] [place] [id number] * Hepatic Function Panel (02/10/2022 11:06 AM EDT) Protein, Total 7.4 6.1 - 8.0 g/dL [facility] Albumin 4.2 3.2 - 5.2 g/dL [facility] Aspartate Aminotransferase 21 0 - 30 unit/L [facility] Alanine Aminotransferase 17 0 - 30 unit/L [facility] Alkaline Phosphatase 71 35 - 105 unit/L [facility] Bilirubin, Total 0.6 0.2 - 1.3 mg/dL [facility] Bilirubin, Direct 0.2 0.0 - 0.3 mg/dL [facility] Blood 02/10/2022 11:0 6 AM EDT 02/10/2022 11:10 AM EDT Narrative Resulting Agency Comment Spec In Lab Irene Lara MD CHEMISTRY ORDERABLES [facility] [place] [address] documented in this encounter Visit Diagnoses Diagnosis Primary biliary cholangitis Type 2 diabetes mellitus with other specified complication, unspecified whether salvage determiner insulin use documented in this encounter Care Teams Search Director Relationship Specialty Start Date End Date Nicolasa Prince APRN [address] [place] [address] PCP - General Family Medicine 01/08/21 documented as of this encounter
--- OUTSIDE RECORDS SUMMARY | 2024-05-26 00:54 | XMS_ITS | Encounter Summary ---
Author Organization [facility] [place] [address] Care Team Providers Care Tank Farm Attendant Name Role Phone Nicolasa Prince APRN Primary Care Provider +1- [phone] Encounter Details Date Type Department Care Team (Late st Contact Info) Description 10/14/2021 External [place] [address] Irene Lara MD [facility] [place] [address] Social History Tobacco Use Types Packs/Day Years [...] 08/14/2024 12:10 PM [place] [address] Irene Lara MD [facility] [place] [address] documented as of this encounter Procedures Procedure [...] on filedocumented in this encounter Care Teams Tank Farm Attendant Relationship Specialty Start Date End Date Nicolasa Prince, YULIA [address] [place] [address] PCP - General Family Medicine 01/08/21 documented as of this encounter
--- OUTSIDE RECORDS SUMMARY | 2024-05-26 00:54 | XMS_ITS | Encounter Summary ---
[place] [address] Care Team Providers Care Parking Analyst Name Role Phone Nicolasa Prince APRN Primary Care Provider +1- [phone] Reason for Visit * Reason Onset Date Comments Appointment 06/24/2023 US/Abdomen Encounter Details Date Type Department Care Team (Late st Contact Info) Description 06/24/2023 [place] [address] Gisele Jim RN Appointment (US/Abdomen) [...] 08/14/2024 12:10 PM EDT [place] [address] Irene Lara MD [facility] [place] [address] documented as of this encounter Visit Diagnoses Not on filedocumented in this encounter Care Teams Parking Analyst Relationship Specialty Start Date End Date Nicolasa Prince APRN [address] [place] [address] PCP - General Family Medicine 01/08/21 documented as of this encounter
--- OUTSIDE RECORDS SUMMARY | 2024-05-26 00:54 | XMS_ITS | Encounter Summary ---
Author Organization Formerly [facility], [facility] Address [facility] [place] [address] Care Team Providers Care Meat Clerk Name Role Phone Nicolasa Prince APRN Primary Care Provider +1- [phone] Encounter Details Date Type Department Care Team (Late Contact Info) Description 12/25/2022 External Results [place] [phone] Irene Lara MD [facility] [address] Social History Tobacco Use Types Packs/Day Years [...] 08/14/2024 12:10 PM EDT [place] [phone] Irene Lara MD [facility] [place] [address] documented as of this encounter Procedures Procedure [...] Aminotransferase 29 Alanine Aminotransferase 28 Historical Provider EXTERNAL LAB ISRAEL BEEBE documented in this encounter Visit Diagnoses Not on filedocumented in this encounter Care Teams Meat Clerk Relationship Specialty Start Date End Date Nicolasa Prince APRN [address] [place] [address] PCP - General Family Medicine 01/08/21 documented as of this encounter
--- OUTSIDE RECORDS SUMMARY | 2024-05-26 00:54 | XMS_ITS | Encounter Summary ---
Author Organization Count Includes [facility] Address [facility] [place] [address] Care Team Providers Care Continuous Mining Operator Name Role Phone Nicolasa Prince APRN Primary Care Provider +1- [phone] Encounter Details Date Type Department Care Team (Late st Contact Info) Description 12/02/2022 Telephone [place] [address] Irene Lara MD [facility] [place] [address] Social History Tobacco Use Types Packs/Day Years [...] Lara MD Section of Gastroenterology & Hepatology [address] [place] [address] documented in this encounter Plan of Treatment Upcoming Encounters Date Type Department Care Team (Late st Contact Info) Description 08/14/2024 12:10 PM [place] [address] [facility] [place] [address] documented as of this encounter Visit Diagnoses Not on filedocumented in this encounter Care Teams Continuous Mining Operator Relationship Specialty Start Date End Date Nicolasa Prince APRN [address] [place] [address] PCP - General Family Medicine 01/08/21 documented as of this encounter
--- OUTSIDE RECORDS SUMMARY | 2024-05-26 00:54 | XMS_ITS | Encounter Summary ---
Author Organization [facility] [place] [address] Care Team Providers Care Brace Maker Name Role Phone Nicolasa Prince APRN Primary Care Provider +1- [phone] Encounter Details Date Type Department Care Team (Late st Contact Info) Description 03/30/2023 11:30 AM EST Office [place] [address] Irene Lamar MD [facility] [place] [address] Biliary cirrhosis Social History Tobacco Use Types [...] Progress Notes * Irene Lamar MD - 03/30/2023 11:30 AM EST [...] [place] and she was managed by a plumbing mechanic at [facility]. Her records were extensively reviewed in [...] Vitals: 03/30/23 1122 BP: 129/62 BP Location ([facility]): Right arm Patient Position: Sitting [...] documenting- all today : 8 min Irene Lamar MD Section of Gastroenterology & Hepatology [address] [place], [place] [id number] Cc: Nicolasa Prince APRN SURGICAL PATHOLOGY REPORT Patient: PREMA SALGADO MR #: [id number] Submitted by: Elie Moreno MD FINAL DIAGNOSIS [...] the ductules cannot be definitively distinguished from oneida bile ducts. There is patchy periportal hepatocellular [...] had a prior liver biopsy reviewed at [facility] (see accession number [id number]), although the slides are not available for direct comparison at this time. However, based on the microscopic description, it appears that fibrosis may have progressed. documented in this encounter Plan of Treatment Upcoming Encounters Date Type Department Care Team (Late st Contact Info) Description 08/14/2024 12:10 PM [place] [address] Irene Lamar MD [facility] [place] [address] documented as of this encounter Results * US Abdomen Limited Hepatology Protocol (09/28/2023 10:54 AM EDT) WORKSTATION ID [id number] RAD Anatomical Region Laterality Modality Abdomen Ultrasound [...] AM Electronically signed by: Fiordaliza Fabian MD, [facility] ([phone]), at 09/28/2023 11:34 AM Thank you for letting us participate in the care of this patient. If you are a health care provider and have any questions regarding this report, please contact the number above. For patients who have questions, please contact the health transitional care manager that requested your imaging first. ?Fiordaliza Fabian, [facility] Web Design Intern Electronically Signed Final Report ?? 09/28/2023 11:41 am Narrative 09/28/2023 11:42 AM EDT Abdominal ? (Signed Final 09/28/2023 11:41 am) PATIENT INFO: ID #: ? [id number] ?: ??[birth year] (72 yrs)(F) Name: ? PREMA SALGADO ?Visit Date: 09/28/2023 10:34 am PERFORMED BY: Attending: ?Caren LUTHER, Fiordaliza Prado Resident: ? Madhavi Thomas MD Performed By: ? Joanna Bronson RDMS Referred By: ?IRENE LAMAR Location: ? [place] [facility] Protocol - Abdominal ?43486 Limited Survey Single Organ or Quadrant - [id number] INDICATIONS: cirrhosis, screen for hcc COMPARISON: US [...] 09/28/2023 11:41 am) PATIENT INFO: ID #: [id number] : 54 (72 yrs)(F) Name: PREMA SALGADO Visit Date: 09/28/2023 10:34 am PERFORMED BY: Attending: Fiordaliza Fabian MD Resident: Madhavi Thomas MD Performed By: Joanna Bronson RDMS Referred By: IRENE LAMAR Location: [place] SERVICE(S) PROVIDED: [facility] - Hepatology Protocol - Abdominal 12212 Limited Survey Single Organ or Quadrant - [id number] INDICATIONS: cirrhosis, screen for hcc COMPARISON: US [...] AM Electronically signed by: Fiordaliza Fabian MD, [facility] ([phone]), at 09/28/2023 11:34 AM Thank you for letting us participate in the care of this patient. If you are a health care provider and have any questions regarding this report, please contact the number above. For patients who have questions, please contact the health transitional care manager that requested your imaging first. Fiordaliza Fabian, E Web Design Intern Electronically Signed Final Report 09/28/2023 11:41 am Irene Lamar MD IMG GEN ORDERABLE S documented in this encounter Visit Diagnoses Diagnosis Biliary cirrhosis Biliary cirrhosis documented in this encounter Care Teams Brace Maker Relationship Specialty Start Date End Date Suresh Nicolasa ChanYULIA [address] [place] [address] PCP - General Family Medicine 01/08/21 documented as of this encounter
--- OUTSIDE RECORDS SUMMARY | 2024-05-26 00:54 | XMS_ITS | Encounter Summary ---
Author [facility] [place] [address] Care Team Providers Care Delinquent Tax Collection Assistant Name Role Phone Nicolasa Prince APRN Primary Care Provider +1- [phone] Encounter Details Date Type Department Care Team [...] 08/14/2024 12:10 PM [place] [address] Irene Lara MD [facility] [place] [address] documented as of this encounter Visit Diagnoses Not on filedocumented in this encounter Care Teams Delinquent Tax Collection Assistant Relationship Specialty Start Date End Date Nicolasa Prince APRN [address] [place] [address] PCP - General Family Medicine 01/08/21 documented as of this encounter
--- OUTSIDE RECORDS SUMMARY | 2024-05-26 00:54 | XMS_ITS | Encounter Summary ---
Author Organization [facility] Address [facility] [place] [address] Care Team Providers Care J2Ee Engineer Name Role Phone Nicolasa Prince APRN Primary Care Provider +1- [phone] Encounter Details Date Type Department Care Team (Latest Contact Info) Description 08/17/2022 10:14 AM EDT - 08/17/2022 11:59 PM EDT Hospital Encounter [place] [address] Irene aLmar MD [facility] [place] [address] Autoimmune hepatitis; Primary biliary cholangitis; Hepatic cirrhosis, [...] 08/14/2024 12:10 PM EDT [place] [address] Ierne Lamar MD [facility] [place] [address] documented as of this encounter Procedures Procedure [...] signed by: Kashmir Lindsay MD, [facility] ([phone]), at 08/17/2022 2:04 PM Thank you for letting us participate in the care of this patient. If you are a health care provider and have any questions regarding this report, please contact the number above. For patients who have questions, please contact the health adult day care worker that requested your imaging first. ?Kashmir Lindsay, Staff Physician Electronically Signed Final Report ?? 08/17/2022 02:12 pm Narrative 08/17/2022 2:12 PM EDT Abdominal ? (Signed Final 08/17/2022 02:12 pm) PATIENT INFO: ID #: ? [id number] ?: ??[birth year] (71 yrs)(F) Name: ? PREMA LEATHA ?Visit Date: 08/17/2022 10:53 am PERFORMED BY: Attending: ?Neftali LUTHER, [place] Resident: ? Milagros LUTHER, James Curtis Performed By: ? Angelina Crystal RDMS Referred By: ?IRENE LAMAR Location: ? [place] [facility] - Hepatology Protocol - Abdominal ?56510 Limited Survey Single Organ or Quadrant - [id number] INDICATIONS: cirrhosis, screen for hcc; assess for [...] 08/17/2022 02:12 pm) PATIENT INFO: ID #: [id number] : 54 (71 yrs)(F) Name: PREMA SALGADO Visit Date: 08/17/2022 10:53 am PERFORMED BY: Attending: Kashmir Lindsay MD Resident: James Linares MD Performed By: Angelina Crystal RDMS Referred By: IRENE LAMAR Location: [place] SERVICE(S) PROVIDED: [facility] - Hepatology Protocol - Abdominal 82242 Limited Survey Single Organ or Quadrant - [id number] INDICATIONS: cirrhosis, screen for hcc; assess for [...] who have questions, please contact the health adult day care worker that requested your imaging first. Kashmir Lindsay, Staff Physician Electronically Signed Final Report 08/17/2022 02:12 pm Irene Lamar MD IMG US GEN ORDERABLE S documented in this encounter Visit Diagnoses Diagnosis Autoimmune hepatitis Primary biliary cholangitis Hepatic cirrhosis, unspecified hepatic cirrhosis type, unspecified whether ascites present documented in this encounter Care Teams J2Ee Engineer Relationship Specialty Start Date End Date Nicolasa Prince APRN [address] [place] [address] PCP - General Family Medicine 01/08/21 documented as of this encounter
--- OUTSIDE RECORDS SUMMARY | 2024-05-26 00:54 | XMS_ITS | Encounter Summary ---
Author Organization [facility] Address [facility] [place] [address] Care Team Providers Care Translator Name Role Phone Nicolasa Prince YULIA Primary Care Provider +1- [phone] Reason for Visit * Auth/Cert (Routine) Specialty [...] GI ENDOSCOPY COLONOSCOPY, DIAGNOSTIC Elin Carlson MD [facility] [place] [address] [facility] Referral ID Status Reason Start Date Expiration Date Visits Re quested Visits Authorized [id number] 1 1 Encounter Details Date Type Department Care Team (Latest Contact Info) Description 08/07/2022 12:50 PM EDT - 08/07/2022 4:14 PM EDT Hospital Encounter [place] [address] Elin Carlson MD [facility] [place] [address] Discharge Disposition: Home Social History Tobacco Use [...] the day after the test, use an eftd-jap-ddzeosu spray or lozenges to numbyour throat. Warm [...] occurs, please contact your doctor. Please call [phone] before 8pm Mon-Fri with problems, questions, or concerns. If you call after 8pm or on weekends, call the Hospital at [phone] and ask for the Advisor To Command In Combat assembler ping pong table and the bush hog operator will contact that person for you. [...] more? You can view health information on [employer], your personal patient account. Log in or sign up today. Content Version: 12.2 ?? [id number] [employer]. Care instructions adapted under license by [facility]. If you have questions about a medical condition or this instruction, always ask your healthcare professional. [employer] disclaims any warranty or liability for your [...] Diagnosis Code ??? Atherosclerotic heart disease of [place] coronary artery without angina pectoris I25.10 EXAM: [...] 08/14/2024 12:10 PM [place] [address] Irene Lara MD [facility] [place] [address] documented as of this encounter Procedures Procedure Name Priority Date/Time Associated Diagnosis Comments SPECIMEN TO PATHOLOGY Routine 08/07/2022 3:25 PM EDT SPECIMEN TO PATHOLOGY Routine 08/07/2022 3:25 PM EDT SURGICAL PATHOLOGY REPORT Routine 08/07/2022 2:57 PM EDT Colonoscopy, Flexible W Control Bleeding, Any Method (24106) 08/07/2022 2:21 PM EDT Hepatic cirrhosis, unspecified hepatic cirrhosis type, unspecified whether ascites present Screening for colon cancer Colonoscpy, Flex, W/Dir Submuc Inject (65657) 08/07/2022 2:21 PM EDT Hepatic cirrhosis, unspecified hepatic cirrhosis type, unspecified whether ascites present Screening for colon cancer Colonoscopy, Remv Lesn, Snare (50917) 08/07/2022 2:21 PM EDT Hepatic cirrhosis, unspecified hepatic cirrhosis type, unspecified whether ascites present Screening for colon cancer Upper GI Endoscopy, Diagnostic (20127) 08/07/2022 2:21 PM EDT Hepatic cirrhosis, unspecified hepatic cirrhosis type, unspecified whether ascites present Screening for colon cancer UPPER GI ENDOSCOPY Routine 08/07/2022 2: 10 PM EDT COLONOSCOPY Routine 08/07/2022 2:10 PM EDT documented in this encounter Results * Specimen to Pathology (08/07/2022 3:25 PM EDT) AP Specimen 08/07/2022 3:25 PM EDT 08/07/2022 3:25 PM EDT Narrative [facility] - 08/07/2022 3:25 PM EDT Specimen requisition ordered. ??Separate Pathology report to follow Elin Carlson MD PATHOLOGY/CYTOLOGY O MEENU Performing Organization Address City/State/[facility] Co de Phone Number [facility] [place] [address] * Specimen to Pathology (08/07/2022 3:25 PM EDT) AP Specimen 08/07/2022 3:25 PM EDT 08/07/2022 3:25 PM EDT Narrative [facility] - 08/07/2022 3:25 PM EDT Specimen requisition ordered. ??Separate Pathology report to follow Elin Carlson MD PATHOLOGY/CYTOLOGY O RDERABLES [facility] [place] [id number] * Surgical Pathology Report (08/07/2022 2:57 PM EDT) Final Diagnosis [id number] ? Location: 4T; EA12; A The signing [...] Arpit Verified: ??08/26/2022 16:10 ??Pathologist Performed at: ??-[facility] [place] Dept. of Pathology, [place] [address] Home Health Clinician: Stefan Min MD, FCAP, ??CLIA Certificate: [id number] SPECIMEN(S) SUBMITTED A - transverse colon polyp, [...] labeled B1-B2. ??shb 08/26/2022 4:10 PM EDT [facility] GI Biopsy 08/07/2022 2:57 PM EDT 08/07/2022 2:57 PM EDT GI Biopsy 08/07/2022 2:57 PM EDT 08/07/2022 2:57 PM EDT Elin Carlson MD PATHOLOGY/CYTOLOGY O MEENU [facility] [place] [id number] [place] [address] [place] [address] * UPPER GI ENDOSCOPY (08/07/2022 2:10 PM EDT) UPPER GI ENDOSCOPY [facility] Endoscopy Procedure Date: 08/07/2022 2:10 PM ? Patient Name: Cookie Salgado ? N: [id number] ? Date of : 1950 ? Age: 71 ? Order #: [id number] ? Instrument Name: [id number]- [id number] ? Procedure: ? Upper GI endoscopy Indications: [...] * COLONOSCOPY (08/07/2022 2:10 PM EDT) COLONOSCOPY [facility] Endoscopy Procedure Date: 08/07/2022 2:10 PM ? Patient Name: Cookie Salgado ? Date of : 1950 ? Age: 71 ? Order #: [id number] ? Instrument Name: [id number]- [id number] ? Procedure: ? Colonoscopy Indications: ? Screening [...] ? was evaluated using the BBPS ? ([place] Bowel Preparation Scale) ? with scores of: [...] Procedure Code(s): ? --- Professional --- ? 58657, Colonoscopy, flexible; with ? endoscopic mucosal resection ? 54228, 59, Colonoscopy, flexible; ? with removal of tumor(s), polyp(s), ? or other lesion(s) by snare ? technique CPT copyright 2020 [employer]. All rights reserved. The codes documented in this report are preliminary and upon talent acquisition operations manager review may be revised to meet [...] Ca, RN)1442 (Given - Provider: Leticia Ca, ALYSA)1450 (Given - Provider: Leticia Ca, RN) documented in this encounter Care Teams Translator Relationship Specialty Start Date End Date Nicolasa Prince, USPS LETTER CARRIER [address] [place] [address] PCP - General Family Medicine 01/08/21 documented as of this encounter
--- OUTSIDE RECORDS SUMMARY | 2024-05-26 00:54 | XMS_ITS | Encounter Summary ---
Author Organization [facility] Address [facility] [place] [address] Care Team Providers Care Hematology Technician Name Role Phone Nicolasa Prince YULIA Primary Care Provider +1- [phone] Encounter Details Date Type Department Care Team (Latest Contact Info) Description 02/10/2022 9:51 AM EDT - 02/10/2022 11:59 PM EDT Hospital [place] [address] Carolynn Lamar MD [facility] [place] [address] Primary biliary cholangitis; Hepatic cirrhosis, unspecified hepatic [...] 08/14/2024 12:10 [place] [address] Carolynn Lamar MD [facility] [place] [address] documented as of this encounter Procedures Procedure [...] dilatation. Electronically signed by: Fiordaliza Fabian MD, [facility] ([phone]), at 02/10/2022 10:32 AM Thank you for letting us participate in the care of this patient. If you are a health care provider and have any questions regarding this report, please contact the number above. For patients who have questions, please contact the health day care aide that requested your imaging first. ? Fiordaliza Fabian, Staff Physician Electronically Signed Final Report ?? 02/10/2022 10:39 am Narrative 02/10/2022 10:39 AM EDT Abdominal ? (Signed Final 02/10/2022 10:39 am) PATIENT INFO: ID #: ? [id number] ?: ??[birth year] (71 yrs)(F) Name: ? PREMA SALGADO ?Visit Date: 02/10/2022 10:18 am PERFORMED BY: Performed By: ? Sarahi Flores RDMS Attending: ?Caren LUTHER, Fiordaliza Prado Referred By: ?CAROLYNN LAMAR Location: ? [place] SERVICE(S) PROVIDED: [facility] - Hepatology Protocol - Abdominal ?96740 Limited Survey Single Organ or Quadrant - [id number] INDICATIONS: Cirrhosis, screen for HCC COMPARISON: MRI [...] 02/10/2022 10:39 am) PATIENT INFO: ID #: [id number] : 54 (71 yrs)(F) Name: PREMA SALGADO Visit Date: 02/10/2022 10:18 am PERFORMED BY: Performed By: Sarahi Flores RDMS Attending: Fiordaliza Fabian MD Referred By: CAROLYNN LAMAR Location: [place] SERVICE(S) PROVIDED: [facility] - Hepatology Protocol - Abdominal 47557 Limited Survey Single Organ or Quadrant - [id number] INDICATIONS: Cirrhosis, screen for HCC COMPARISON: MRI [...] questions, please contact the health day care aide that requested your imaging first. Fiordaliza Fabian, Staff Physician Electronically Signed Final Report 02/10/2022 10:39 am Carolynn Lamar MD IMG US GEN ORDERABLE S documented in this encounter Visit Diagnoses Diagnosis Primary biliary cholangitis Hepatic cirrhosis, unspecified hepatic cirrhosis type, unspecified whether ascites present documented in this encounter Care Teams Hematology Technician Relationship Specialty Start Date End Date Nicolasa Prince APRN [address] [place] [address] PCP - General Family Medicine 01/08/21 documented as of this encounter
--- OUTSIDE RECORDS SUMMARY | 2024-05-26 00:54 | XMS_ITS | Encounter Summary ---
Author Organization [facility] [place] [address] Care Team Providers Care Aquaculture Program Director Name Role Phone Nicolasa Prince APRN Primary Care Provider +1- [phone] Reason for Visit * Reason Comments Medication Refill Encounter Details Date Type Department Care Team (Late st Contact Info) Description 09/15/2022 Refill [place] [address] Irene Lara MD [facility] [place] [address] Autoimmune hepatitis Social History Tobacco Use Types [...] 08/14/2024 12:10 PM EDT [place] [address] Irene Lara MD [facility] [place] [address] documented as of this encounter Visit Diagnoses Diagnosis Autoimmune hepatitis documented in this encounter Care Teams Aquaculture Program Director Relationship Specialty Start Date End Date Nicolasa Prince APRN [address] [place] [address] PCP - General Family Medicine 01/08/21 documented as of this encounter
--- OUTSIDE RECORDS SUMMARY | 2024-05-26 00:54 | XMS_ITS | Encounter Summary ---
Author Organization [facility] [place] [address] Care Team Providers Care Putty Mixer Name Role Phone Nicolasa Prince APRN Primary Care Provider +1- [phone] Encounter Details Date Type Department Care Team [...] 08/14/2024 12:10 PM EDT [place] [address] Irene Lara MD [facility] [place] [address] documented as of this encounter Visit Diagnoses Not on filedocumented in this encounter Care Teams Putty Mixer Relationship Specialty Start Date End Date Nicolasa Prince APRN [address] [place] [address] PCP - General Family Medicine 01/08/21 documented as of this encounter
--- OUTSIDE RECORDS SUMMARY | 2024-05-26 00:54 | XMS_ITS | Encounter Summary ---
Author Organization [facility] [place] [address] Care Team Providers Care Network Operations Analyst Name Role Phone Nicolasa Prince APRN Primary Care Provider +1- [phone] Reason for Visit * Reason Comments Medication Refill Encounter Details Date Type Department Care Team (Late st Contact Info) Description 10/15/2022 Refill [place] [address] Irene Lara MD [facility] [place] [address] Autoimmune hepatitis Social History Tobacco Use Types [...] 08/14/2024 12:10 PM ED[place] [address] Irene Lara MD [facility] [place] [address] documented as of this encounter Visit Diagnoses Diagnosis Autoimmune hepatitis documented in this encounter Care Teams Network Operations Analyst Relationship Specialty Start Date End Date Nicolasa Prince APRN [address] [place] [address] PCP - General Family Medicine 01/08/21 documented as of this encounter
--- OUTSIDE RECORDS SUMMARY | 2024-05-26 00:55 | XMS_ITS | Encounter Summary ---
Author Organization [facility] [place] [address] Care Team Providers Care Paper Machine Supervisor Name Role Phone Nicolasa Prince APRN Primary Care Provider +1- [phone] Encounter Details Date Type Department Care Team [...] 08/14/2024 12:10 PM EDT [place] [id number] Irene Lara MD [facility] [place] [address] documented as of this encounter Visit Diagnoses Not on filedocumented in this encounter Care Teams Paper Machine Supervisor Relationship Specialty Start Date End Date Nicolasa Prince APRN [address] [place] [id number] PCP - General Family Medicine 01/08/21 documented as of this encounter
--- OUTSIDE RECORDS SUMMARY | 2024-05-26 00:55 | XMS_ITS | Encounter Summary ---
[place] [address] Care Team Providers Care Processing Assistant Name Role Phone Suresh Nicolasa Giles APRN Primary Care Provider +1- [phone] Reason for Referral * Diagnostic Test (Routine) - Closed Specialty Diagnoses / Procedures Referred By Contac t Referred To Contact Radiology Diagnoses Primary biliary cholangitis Procedures MRI Abdomen wwo Contrast (Generic) Harmony Andrade APRN [facility] [place] [address] [place] [address] Referral ID Status Reason Start Date Expiration Date V isits Requested Visits Authorized [id number] Closed Specialty Service Requested 02/19/2021 08/20/2022 1 1 Reason for Visit * Diagnostic Test (Routine) - Closed Specialty Diagnoses / Procedures Referred By Contac t Referred To Contact Radiology Diagnoses Primary biliary cholangitis Procedures MRI Abdomen wwo Contrast (Generic) Harmony Andrade [facility] [place] [address] [place] [address] Referral ID Status Reason Start Date Expiration Date V isits Requested Visits Authorized [id number] Closed Specialty Service Requested 02/19/2021 08/20/2022 1 1 Encounter Details Date Type Department Care Team (Latest Contact Info) Description 07/22/2021 9:43 AM EDT - 07/22/2021 11:59 PM EDT [place] [phone] Harmony Andrade APRN [facility] [place] [address] Primary biliary cholangitis Discharge Disposition: Home Social [...] 08/14/2024 12:10 [place] [phone] Irene Lara MD [facility] [place] [address] documented as of this encounter Procedures Procedure [...] who have questions please contact the health chronic care nurse that requested your imaging first. ? Electronically signed by: Ramon Verduzco MD, [facility] ([phone]), at 07/22/2021 11:29 AM Narrative 07/22/2021 11:29 [...] patients who have questions please contactthe health chronic care nurse that requested your imaging first. Electronically signed by: Ramon Verduzco MD, [facility]([phone]), at 07/22/2021 11:29 AM Harmony Andrade APRN [...] Intravenous, ONCE PRN, 1 dose, Starting on 07/22/21 at 1049, Until 07/22/21 at 1039, Per Protocol, Radiology Contrast, Routine Given 07/22/2021 10:39 AM EDT 20 mLs documented in this encounter Care Teams Processing Assistant Relationship Specialty Start Date End Date Nicolasa Prince APRN [address] [place] [address] PCP - General Family Medicine 01/08/21 documented as of this encounter
--- OUTSIDE RECORDS SUMMARY | 2024-05-26 00:55 | XMS_ITS | Encounter Summary ---
Author Organization [facility] Address [facility] [place] [address] Care Team Providers Care Field Contact Technician Name Role Phone Nicolasa Prince APRN Primary Care Provider +1- [phone] Encounter Details Date Type Department Care Team (Late st Contact Info) Description 01/22/2021 Telephone Cardiology at [address] [phone] Lorie Garza LNA Social History Tobacco Use Types Packs/Day Years Used Date Smoking Tobacco: Never Assessed Sex and Gender Information Value Date Recorded Sex Assigned at Not on file Gender Identity Not on file Sexual Orientation Not on file documented as of this encounter Plan of Treatment Upcoming Encounters Date Type Department Care Team (Late st Contact Info) Description 08/14/2024 12:10 PM [place] [phone] Irene Lara MD [facility] [place] [address] documented as of this encounter Visit Diagnoses Not on filedocumented in this encounter Care Teams Field Contact Technician Relationship Specialty Start Date End Date Nicolasa Prince APRN [address] [place] [address] PCP - General Family Medicine 01/08/21 documented as of this encounter
--- OUTSIDE RECORDS SUMMARY | 2024-05-26 00:55 | XMS_ITS | Encounter Summary ---
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; Autoimmune hepatitis; Type 2 diabetes mellitus with other specified complication, unspecified whether [facility] insulin use; Primary biliary cholangitis Social History [...] 08/14/2024 12:10 PM [place] [phone] Irene Lara MD [facility] [place] [address] documented as of this encounter Visit Diagnoses Diagnosis 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
--- OUTSIDE RECORDS SUMMARY | 2024-05-26 00:55 | XMS_ITS | Encounter Summary ---
Author Organization [facility] [place] [address] Care Team Providers Care Tub Operator Name Role Phone Nicolasa Prince YULIA Primary Care Provider +1- [phone] Encounter Details Date Type Department Care Team (Late st Contact Info) Description 01/28/2021 Orders Only Cardiology at [address] [phone] Kylah Arellano APRN [facility] [place] [address] Atherosclerosis of [place] coronary artery without angina pectoris, unspecified whether [place] or transplanted heart Social History Tobacco Use [...] 08/14/2024 12:10 PM [place] [address] Irene Lara MD [facility] [place] [address] documented as of this encounter Visit Diagnoses Diagnosis Atherosclerosis of [place] coronary artery without angina pectoris, unspecified whether [place] or transplanted heart documented in this encounter Care Teams Tub Operator Relationship Specialty Start Date End Date Nicolasa Prince, YULIA [address] [place] [id number] PCP - General Family Medicine 01/08/21 documented as of this encounter
--- OUTSIDE RECORDS SUMMARY | 2024-05-26 00:55 | XMS_ITS | Encounter Summary ---
[place] [address] Care Team Providers Care Balance Staff Staker Name Role Phone Nicolasa Prince [employer]ED DRUM SANDER Primary Care Provider +1- [phone] Encounter Details Date Type Department Care Team (Late st Contact Info) Description 09/04/2021 Telephone [place] [phone] Thania Wilson, RN Social History Tobacco Use [...] at 09/03/2021 10:04 AM EDT ----- No [facility] account. AIH/PBC- recently cut azathioprine dose. Could you call her and ask to repeat labs in 4 weeks? Thanks irene 09/04 Called pt; had to leave [facility]. Nurse contact info provided. Need to confirm current aza dose. 09/18 Called pt; she is scheduled for 09/25 blood draw at her PCP. Will plan to request those results. documented in this encounter Plan of Treatment Upcoming Encounters Date Type Department Care Team (Late st Contact Info) Description 08/14/2024 12:10 PM [place] [address] Irene Lara MD [facility] [place] [address] documented as of this encounter Visit Diagnoses Not on filedocumented in this encounter Care Teams Balance Staff Staker Relationship Specialty Start Date End Date Nicolasa Prince APRN [address] [place] [address] PCP - General Family Medicine 01/08/21 documented as of this encounter
--- OUTSIDE RECORDS SUMMARY | 2024-05-26 00:55 | XMS_ITS | Encounter Summary ---
Author Organization [facility] [place] [address] Care Team Providers Care Ui Software Engineer Name Role Phone Nicolasa Prince APRN Primary Care Provider +1- [phone] Encounter Details Date Type Department Care Team (Late st Contact Info) Description 07/22/2021 1:30 PM EDT Office Visit [place] [address] Carolynn Lamar MD [facility] [place] [address] Primary biliary cholangitis; Type 2 diabetes mellitus [...] [place] and she was managed by a rn clinical documentation at [facility]. Her records were extensively reviewed today in [...] been normal sinceapproximately 2017. She moved to [place] about a year ago. She is living [...] Lamar MD Section of Gastroenterology & Hepatology [address] [place] [address] Cc: Nicolasa Prince APRN SURGICAL PATHOLOGY REPORT ? Patient: PREMA SALGADO ?MR #: [id number] ?Submitted by: Elie Moreno MD FINAL DIAGNOSIS [...] the ductules cannot be definitively distinguished from citizen [place] bile ducts. ??There is patchy periportal hepatocellular [...] had a prior liver biopsy reviewed at [facility] (see accession number [id number]), although the slides are not available for direct comparison at this time. ??However, based on the microscopic description, it appears that fibrosis may have progressed. documented in this encounter Plan of Treatment Upcoming Encounters Date Type Department Care Team (Late st Contact Info) Description 08/14/2024 12:10 PM EDT [place] [phone] Carolynn Lamar MD [facility] [place] [address] documented as of this encounter Results * [...] have questions, please contact the health career manager that requested your imaging first. ? Fiordaliza Fabian, Staff Physician Electronically Signed Final Report ?? 02/10/2022 10:39 am Narrative 02/10/2022 10:39 AM EDT Abdominal ? (Signed Final 02/10/2022 10:39 am) PATIENT INFO: ID #: ? [id number] ?: ??[birth year] (71 yrs)(F) Name: ? PREMA SALGADO ?Visit Date: 02/10/2022 10:18 am PERFORMED BY: Performed By: ? Sarahi Flores RDMS Attending: ?Caren LUTHER, Fiordaliza Prado Referred By: ?CAROLYNN BRIANDA Location: ? [place] SERVICE(S) PROVIDED: [facility] - Hepatology Protocol - Abdominal ?[id number] Limited Survey Single Organ or Quadrant - [id number] INDICATIONS: Cirrhosis, screen for HCC COMPARISON: MRI [...] 02/10/2022 10:39 am) PATIENT INFO: ID #: [id number] : [birth year] (71 yrs)(F) Name: PREMA SALGADO Visit Date: 02/10/2022 10:18 am PERFORMED BY: Performed By: Sarahi Flores RDMS Attending: Fiordaliza Fabian MD Referred By: CAROLYNN LAMAR Location: [place] SERVICE(S) [facility] - Hepatology Protocol - Abdominal 39962 Limited Survey Single Organ or Quadrant - [id number] INDICATIONS: Cirrhosis, screen for HCC COMPARISON: MRI [...] dilatation. Electronically signed by: Fiordaliza Fabian MD, [facility] ([phone]), at 02/10/2022 10:32 AM Thank you for letting us participate in the care of this patient. If you are a health care provider and have any questions regarding this report, please contact the number above. For patients who have questions, please contact the health career manager that requested your imaging first. Fiordaliza Fabian, Staff Physician Electronically Signed Final Report 02/10/2022 10:39 am Carolynn Lamar MD IMG US GEN ORDERABLE S * Prothrombin Time (07/22/2021 11:40 AM EDT) Prothrombin Time 11.6 9.4 - 12.5 sec [facility] International Normalization Ratio 1.0 [facility] Comment: An INR <2.0 indicates [...] Lab Carolynn Lamar MD HEMATOLOGY ORDERABLE S [facility] [place] [address] * AFP tumor marker (07/22/2021 11:40 AM EDT) Alpha Fetoprotein 3.4 <=8.3 ng/mL [facility] Blood 07/22/2021 11:4 0 AM EDT 07/22/2021 11:55 AM EDT Narrative Resulting Agency Comment Spec In Lab Carolynn Lamar MD CHEMISTRY ORDERABLES [facility] [place] [address] * (ABNORMAL) Comprehensive metabolic panel (non-fasting) (07/22/2021 11:40 AM EDT) Glucose 156 65 - 199 mg/dL [facility] Comment:Diabetes: >=200 mg/d L plus symptoms Blood Urea Nitrogen 23(H) 8 - 18 mg/dL [facility] Creatinine 0.88 0.70 - 1.20 mg/dL [facility] Sodium 135 135 - 145 mmol/L [facility] Potassium 4.4 3.5 - 5.0 mmol/L [facility] Comment: Please note: ??Patients with WBC >100,000 may have falsely elevated Potassium levels. ??For accurate Potassium quantification in these patients send serum separator tube (gold top) for subsequent determinations. ??Contact the Clinical Chemistry Laboratory if there are any questions. Chloride 104 98 - 107 mmol/L [facility] Carbon Dioxide 18(L) 22 - 31 mmol/L [facility] Anion Gap 13 5 - 15 mmol/L [facility] Calcium 10.0 8.5 - 10.5 mg/dL [facility] Protein, Total 7.8 6.1 - 8.0 g/dL [facility] Albumin 4.5 3.2 - 5.2 g/dL [facility] Aspartate Aminotransferase 29 0 - 30 unit/L [facility] Alanine Aminotransferase 26 0 - 30 unit/L [facility] Alkaline Phosphatase 89 35 - 105 unit/L [facility] Bilirubin, Total 0.7 0.2 - 1.3 mg/dL [facility] Est Glomerular Filtration Rate 68 >=60 mL/min/1. 73 m?? [facility] Comment: This patient? s estimated [...] In Lab Carolynn Lamar MD CHEMISTRY ORDERABLES [facility] [place] [address] documented in this encounter Visit Diagnoses Diagnosis Primary biliary cholangitis Type 2 diabetes mellitus without complication, without long-term current use of insulin Hepatic cirrhosis, unspecified hepatic cirrhosis type, unspecified whether ascites present Primary biliary cholangitis Hepatic cirrhosis, unspecified hepatic cirrhosis type, unspecified whether ascites present documented in this encounter Care Teams Ui Software Engineer Relationship Specialty Start Date End Date Nicolasa Prince APRN [address] [place] [address] PCP - General Family Medicine 01/08/21 documented as of this encounter
--- OUTSIDE RECORDS SUMMARY | 2024-05-26 00:55 | XMS_ITS | Encounter Summary ---
[place] [address] Care Team Providers Care Provider Enrollment Specialist Name Role Phone Nicolasa Prince APRN Primary Care Provider [phone]- [phone] Reason for Referral * Diagnostic Test (Routine) - Closed Specialty Diagnoses / Procedures Referred By Minh miguel Referred To Contact Radiology Diagnoses Primary biliary cholangitis Procedures MRI Abdomen wwo Contrast (Generic) Harmony Dobson APRN [facility] [place] [address] [place] [address] Referral ID Status Reason Start Date Expiration Date V isits Requested Visits Authorized [id number] Closed Specialty Service Requested 02/19/2021 08/20/2022 1 1 Reason for Visit * Reason Comments GI Problem * Consultation (Routine) - Closed Specialty Diagnoses / Procedures Referred By Minh miguel Referred To Contact Gastroenterology Diagnoses Primary biliary cirrhosis Primary biliary cirrhosis Nicolasa Prnice APRN [address] [place] [address] [facility] [address] [place] [address] Referral ID Status Reason Start Date Expiration Date V isits Requested Visits Authorized [id number] Closed Consult, Test & Treat Connection Center PCP Updated and/or Approved 12/25/2020 06/27/2021 6 6 Encounter Details Date Type Department Care Team (Late st Contact Info) Description 02/19/2021 9:00 AM EDT Office [place] [phone] Harmony Dobson APRN [facility] [place] [address] Primary biliary cholangitis; Hepatic cirrhosis, unspecified hepatic [...] HEPATOLOGY NEW PATIENT CONSULTATION Cookie Salgado 1950 CAR REFINISHER: HARMONY DOBSON APRN PCP: Nicolasa Prince APRN Requesting Provider: REASON FOR CONSULTATION Primary biliary cholangitis, AIH, cirrhosis transfer of care HISTORY OF PRESENT ILLNESS Cookie Salgado is a 70 y.o. year old female with history of Primary biliary cholangitis who presents today to establish care for her PBC. She was previously followed by hepatology in [place] and recently moved to [place]. She was last followed by GI at [place] - Dr. Yasmin Fletcher. Takes Ursodiol 500mg [...] though she has cirrhosis. She moved to [place] at end of October 2020. She is living in the [facility] with her brother and has [...] T2 correlate or washout/pseudocapsule (LI-RADS 3). A personal banking representative lesion is seen on series 9 [...] D3,) 50 mcg (2,000 unit) Capsule Take [facility]. ??? losartan (Cozaar) 50 mg Tablet ??? Ursodiol (ACTIGALL) 500 mg Tablet 1,000 mg. ??? Azasan 75 mg Tablet ??? Jardiance 25 mg Tablet ??? fenofibrate (TRICOR) 145 mg Tablet ??? Tradjenta 5 mg Tablet ALLERGIES Allergies Allergen Reactions ??? Amoxicillin ??? Ciprofloxacin ??? Egg Derived Other (See Comments) Also Egg ??? 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 Lives near 2 brothers. Alcohol: [...] T2 correlate or washout/pseudocapsule (LI-RADS 3). A personal banking representative lesion is seen on series 9 [...] previously followed by Dr. Yasmin Woodson at [facility] and has been on a relatively stable [...] Dobson APRN Section of Gastroenterology [place] [address] Copy: Nicolasa Prince APRN [address] / [facility] [address] documented in this encounter Plan of Treatment Upcoming Encounters Date Type Department Care Team (Late st Contact Info) Description 08/14/2024 12:10 PM [place] [address] Irene Lara MD [facility] [address] documented as of this encounter Procedures Procedure [...] who have questions please contact the health rn medicare that requested your imaging first. ? Electronically signed by: Ramon Verduzco MD, [facility] ([phone]), at 07/22/2021 11:29 AM Narrative 07/22/2021 11:29 [...] patients who have questions please contactthe health rn medicare that requested your imaging first. Electronically signed by: Ramon Verduzco MD, [facility]([phone]), at 07/22/2021 11:29 AM Harmony Dobson APRN [facility] [place] * Differential, Automated (02/19/2021 10:54 AM EDT) Neutrophil % 65.2 % [facility] Neutrophil Absolute 3.05 1.70 - 6.10 x10(3)/[facility] Lymph % 23.9 % [facility] Lymphocytes Abs 1.1 0.9 - 3.2 x10(3)/[facility] Monocyte % 8.8 % [facility] Monocyte Abs 0.4 0.3 - 0.9 x10(3)/[facility] Eos % 1.3 % [facility] Eosinophils Abs 0.1 0.0 - 0.4 x10(3)/[facility] Basophil % 0.6 % [facility] Baso Absolute 0.0 0.0 - 0.1 x10(3)/[facility] Immature Gran % 0.20 % [facility] Comment: Immature granulocytes(IG's)percentage and absolute count will include metamyelocytes, myelocytes, and promyelocytes. Blood smears from CBCs yielding IG's will be scanned manually for concordance. If this scan disagrees with the automated IG or if promyelocytes are noted, a manual differential will be performed. Immature Gran Absolute 0.01 0.00 - 0.04 x10(3)/[facility] Blood 02/19/2021 10:5 4 AM EDT 02/19/2021 11:02 AM EDT Narrative Resulting Agency Comment Spec In Lab Harmony Dobson VALLEZ FILTER OPERATOR HEMATOLOGY ORDERAB LES [facility] [place] [address] * (ABNORMAL) Hemogram (02/19/2021 10:54 AM EDT) White Blood Cell 4.7 4.0 - 9.5 x10(3)/[facility] LABORATORY Red Blood Cell 5.15 4.00 - 5.21 x10(6)/[facility] Hemoglobin 16.6(H) 11.7 - 15.5 g/dL [facility] Hematocrit 48.4(H) 35.7 - 45.8 % [facility] Mean Cell Volume 94.0 82.6 - 94.4 fL [facility] Mean Cell Hemoglobin 32.2(H) 27.1 - 32.0 pg [facility] Mean Cell Hemoglobin Concentration 34.3 31.7 - 35.0 g/dL [facility] Platelet 146 145 - 357 x10(3)/[facility]ORAT[facility] RDW Standard Deviation 46.0 37.0 - 46.0 [facility] RDW coefficient of variation 13.3 11.5 - 14.1 % [facility] Mean Platelet Volume 10.6 7.6 - 12.9 fL [facility] NRBC% auto 0.0 % [facility] NRBC Absolute 0.000 0.000 - 0.000 x10(3)/[facility] Blood 02/19/2021 10:5 4 AM EDT 02/19/2021 11:02 AM EDT Narrative Resulting Agency Comment Spec In Lab Harmony Dobson APRN HEMATOLOGY ORDERAB LES [facility] [place] [address] * (ABNORMAL) Hemoglobin A1c (02/19/2021 10:54 AM EDT) Hemoglobin A1c 8.0(H) 4.3 - 5.6 % [facility] [...] Diabetes Care 2013; 36: Suppl. 1, S67-74 Estimated Average Glucose 181 mg/dL [facility] Comment: eAG equivalents [...] on the ADA website. Herman REED, Kellie Antunez, Ann R, et al. ??Translating the A1C assay into estimated average glucose values. ??Diabetes Care 2008:31(8):1530-3275. Blood 02/19/2021 10:5 4 AM EDT 02/19/2021 11:02 AM EDT Narrative Resulting Agency Comment Spec In Lab Harmony Dobson APRN CHEMISTRY ORDERABL ES Performing Organization Address [place] [facility] Phone Number [facility] [place] [address] * Prothrombin Time (02/19/2021 10:54 AM EDT) Prothrombin Time 11.7 9.4 - 12.5 sec [facility] International Normalization Ratio 1.0 [facility] Comment: An INR <2.0 indicates [...] APRN HEMATOLOGY ORDERAB LES Performing Organization Address [place] [facility] Phone Number [facility] [place] [address] * AFP tumor marker (02/19/2021 10:54 AM EDT) Alpha Fetoprotein 3.0 <=8.3 ng/mL [facility] Blood 02/19/2021 10:5 4 AM EDT 02/19/2021 11:02 AM EDT Narrative Resulting Agency Comment Spec In Lab Harmony Dobson APRN CHEMISTRY ORDERABL ES [facility] [place] [address] * (ABNORMAL) Comprehensive metabolic panel (non-fasting) (02/19/2021 10:54 AM EDT) Glucose 141 65 - 199 mg/dL [facility] Comment:Diabetes: >=200 mg/d L plus symptoms Blood Urea Nitrogen 23(H) 8 - 18 mg/dL [facility] Creatinine 0.79 0.70 - 1.20 mg/dL [facility] Sodium 136 135 - 145 mmol/L [facility] Potassium 4.2 3.5 - 5.0 mmol/L [facility] Comment: Please note: ??Patients with WBC >100,000 may have falsely elevated Potassium levels. ??For accurate Potassium quantification in these patients send serum separator tube (gold top) for subsequent determinations. ??Contact the Clinical Chemistry Laboratory if there are any questions. Chloride 104 98 - 107 mmol/L [facility] Carbon Dioxide 24 22 - 31 mmol/L [facility] Anion Gap 8 5 - 15 mmol/L [facility] Calcium 10.0 8.5 - 10.5 mg/dL [facility] Protein, Total 7.9 6.1 - 8.0 g/dL [facility] Albumin 4.3 3.2 - 5.2 g/dL [facility] Aspartate Aminotransferase 24 0 - 30 unit/L [facility] Alanine Aminotransferase 21 0 - 30 unit/L [facility] Alkaline Phosphatase 81 35 - 105 unit/L [facility] Bilirubin, Total 0.6 0.2 - 1.3 mg/dL [facility] Est Glomerular Filtration Rate 77 >=60 mL/min/1. 73 m?? [facility] Comment: This patient? s estimated [...] Lab Harmony Dobson APRN CHEMISTRY ORDERABL ES [facility] [place] [address] documented in this encounter Visit Diagnoses Diagnosis Primary biliary cholangitis Hepatic cirrhosis, unspecified hepatic cirrhosis type, unspecified whether ascites present Autoimmune hepatitis Screening for colon cancer Special screening for malignant neoplasms, colon Primary biliary cholangitis documented in this encounter Care Teams Provider Enrollment Specialist Relationship Specialty Start Date End Date Nicolasa Prince APRN [address] [place] [id number] PCP - General Family Medicine 01/08/21 documented as of this encounter
--- OUTSIDE RECORDS SUMMARY | 2024-05-26 00:55 | XMS_ITS | Encounter Summary ---
[place] [address] Care Team Providers Care Manager Aviation Name Role Phone Nicolasa Prince APRN Primary Care Provider +1- [phone] Encounter Details Date Type Department Care Team (Latest Contact Info) Description 07/22/2021 11:35 AM EDT Laboratory Appointment Lab [address] [place] [phone] Primary biliary cholangitis Social History Tobacco Use [...] 08/14/2024 12:10 PM EDT [place] [phone] Irene Lara MD [facility] [place] [address] documented as of this encounter Procedures Procedure Name Priority Date/Time Associated Diagnosis Comments HEMOGRAM Routine 07/22/2021 11:40 AM EDT Primary biliary cholangitis DIFFERENTIAL, AUTOMATED Routine 07/22/2021 11:40 AM EDT Primary biliary cholangitis HC ALPHA FETOPROTEIN TUMOR MARKER Routine 07/22/2021 11:40 AM EDT Primary biliary cholangitis HC PROTHROMBIN TIME Routine 07/22/2021 1 1:40 AM EDT Primary biliary cholangitis HC CBC,PLT & AUTO DIFF Routine 2 11:40 AM EDT Primary biliary cholangitis HEMOGLOBIN A1C Routine 07/22/2021 11:40 AM EDT COMPREHENSIVE METABOLIC PANEL Routine 07/22/2021 11:40 AM EDT Primary biliary cholangitis documented in this encounter Results * (ABNORMAL) Hemoglobin A1c (07/22/2021 11:40 AM EDT) Hemoglobin A1c 9.4(H) 4.3 - 5.6 % [facility] [...] Mellitus, Diabetes Care 2013; 36: Suppl. 1, S67-63 Estimated Average Glucose 222 mg/dL [facility] Comment: eAG [...] into estimated average glucose values. ??Diabetes Care 2008:31(8):4135-9600. Blood Venous Draw / Unknown 07/22/2021 11:40 AM EDT 07/22/2021 2:17 PM EDT Narrative Resulting Agency Comment Spec In Lab Irene Lara MD CHEMISTRY ORDERABLES [facility] [place] [place] [address] * Differential, Automated (07/22/2021 11:40 AM EDT) Neutrophil % 67.4 % [facility] Neutrophil Absolute 3.18 1.70 - 6.10 x10(3)/[facility] LABORATORY Lymph % 22.0 % [facility] Lymphocytes Abs 1.0 0.9 - 3.2 x10(3)/[facility] LABOR[facility] Monocyte % 8.7 % [facility] Monocyte Abs 0.4 0.3 - 0.9 x10(3)/[facility] LABOR[facility]ORY Eos % 1.3 % [facility] Eosinophils Abs 0.1 0.0 - 0.4 x10(3)/[facility] Basophil % 0.4 % [facility] Baso Absolute 0.0 0.0 - 0.1 x10(3)/[facility]OR[facility] Immature Gran % 0.20 % [facility] Comment: Immature granulocytes(IG's)percentage and absolute count will include metamyelocytes, myelocytes, and promyelocytes. Blood smears from CBCs yielding IG's will be scanned manually for concordance. If this scan disagrees with the automated IG or if promyelocytes are noted, a manual differential will be performed. Immature Gran Absolute 0.01 0.00 - 0.04 x10(3)/mcL [facility] Blood 07/22/2021 11:4 0 AM EDT 07/22/2021 11:55 AM EDT Narrative Resulting Agency Comment Spec In Lab Irene Lara MD HEMATOLOGY ORDERABLE S [facility] [place] [place] [address] * (ABNORMAL) Hemogram (07/22/2021 11:40 AM EDT) White Blood Cell 4.7 4.0 - 9.5 x10(3)/mc L [facility] Red Blood Cell 5.44(H) 4.00 - 5.21 x10(6)/ L [facility] Hemoglobin 16.8(H) 11.7 - 15.5 g/dL [facility] Hematocrit 49.7(H) 35.7 - 45.8 % [facility] Mean Cell Volume 91.4 82.6 - 94.4 fL [facility] Mean Cell Hemoglobin 30.9 27.1 - 32.0 pg [facility] Mean Cell Hemoglobin Concentration 33.8 31.7 - 35.0 g/dL [facility] Platelet 141(L) 145 - 357 x10(3)/mc L [facility] RDW Standard Deviation 45.5 37.0 - 46.0 [facility] LABORATORY RDW coefficient of variation 13.5 11.5 - 14.1 % [facility] Mean Platelet Volume 10.8 7.6 - 12.9 [facility] LABORATORY NRBC% auto 0.0 % [facility] NRBC Absolute 0.000 0.000 - 0.000 x10(3)/mc L [facility] Blood 07/22/2021 11:4 0 AM EDT 07/22/2021 11:55 AM EDT Narrative Resulting Agency Comment Spec In Lab Irene Lara MD HEMATOLOGY ORDERABLE S [facility] [place] [address] * (ABNORMAL) Comprehensive metabolic panel (non-fasting) (07/22/2021 11:40 AM EDT) Glucose 156 65 - 199 mg/dL [facility] Comment:Diabetes: >=200 mg/d L plus symptoms Blood Urea Nitrogen 23(H) 8 - 18 mg/dL [facility] Creatinine 0.88 0.70 - 1.20 mg/dL [facility] Sodium 135 135 - 145 mmol/L [facility] Potassium 4.4 3.5 - 5.0 mmol/L [facility] Comment: Please note: ??Patients with WBC >100,000 may have falsely elevated Potassium levels. ??For accurate Potassium quantification in these patients send serum separator tube (gold top) for subsequent determinations. ??Contact the Clinical Chemistry Laboratory if there are any questions. Chloride 104 98 - 107 mmol/L [facility] Carbon Dioxide 18(L) 22 - 31 mmol/L [facility] Anion Gap 13 5 - 15 mmol/L [facility] Calcium 10.0 8.5 - 10.5 mg/dL [facility] Protein, Total 7.8 6.1 - 8.0 g/dL [facility] Albumin 4.5 3.2 - 5.2 g/dL [facility] Aspartate Aminotransferase 29 0 - 30 unit/L [facility] Alanine Aminotransferase 26 0 - 30 unit/L [facility] Alkaline Phosphatase 89 35 - 105 unit/L [facility] Bilirubin, Total 0.7 0.2 - 1.3 mg/dL [facility] Est Glomerular Filtration Rate 68 >=60 mL/min/1. 73 m?? [facility] Comment: This patient? s [...] Lara MD CHEMISTRY ORDERABLES Performing Organization Address City/[facility] Co de Phone Number [facility] [place] [address] * AFP tumor marker (07/22/2021 11:40 AM EDT) Alpha Fetoprotein 3.4 <=8.3 ng/mL [facility] Blood 07/22/2021 11:4 0 AM EDT 07/22/2021 11:55 AM EDT Narrative Resulting Agency Comment Spec In Lab Irene Lara MD CHEMISTRY ORDERABLES Performing Organization Address [facility] Co de Phone Number [facility] [place] [address] * Prothrombin Time (07/22/2021 11:40 AM EDT) Prothrombin Time 11.6 9.4 - 12.5 sec [facility] International Normalization Ratio 1.0 [facility] Comment: An [...] MD HEMATOLOGY ORDERABLE S Performing Organization Address City/State/[facility] Co de Phone Number [facility] [place] [address] documented in this encounter Visit Diagnoses Diagnosis Primary biliary cholangitis documented in this encounter Care Teams Manager Aviation Relationship Specialty Start Date End Date Nicolasa Prince APRN [address] [place] [id number] PCP - General Family Medicine 01/08/21 documented as of this encounter
--- NOTE | 2024-06-12 | DI.MAMMO_ITS ---
Exam(s) MAMMO SCREENING EXAM: MAMMO SCREENING CLINICAL HISTORY: SCREENING,Z12.39. TECHNIQUE: Bilateral full field digital CC and MLO mammographic images were obtained with 3D tomosyn thesis and utilizing computer aided detection (CAD). COMPARISON: Prior mammograms were reviewed. FINDINGS: There has been no significant change in the appearance and distribution of the fibroglandular tissue. No new right breast findings. Left breast nodular densities unchanged from prior mammograms and therefore benign. There are no new spiculated masses nor new malignant appearing microcalcification groups. There is no significant architectural distortion nor skin thickening-retraction. IMPRESSION: Stable benign-appearing findings. No radiographic evidence of malignancy. BI-RADS Category 2 - Benign Findings Breast Density - Category B - Scattered areas of fibroglandular density Breast density Category C or D implies that the patient has dense breast tissue. Dense breast tissue can make it harder to find cancer on a mammogram. Dense breast tissue is also associated with an incr eased risk of breast cancer. This information about the result of the mammogram report was provided to the patient to raise their awareness. Use this report when you speak with the patient about their risks for breast cancer, which includes their family history. At that time, you may recommend additional screening tests (Ultrasoun d or MRI) as these tests may add significant information. A negative radiographic report should not delay biopsy if a dominant or clinically suspicious mass is present. Up to ten percent of cancers are not identified on mammography. A negative report may reinforce clinical impression. Adenosis and dense breasts may obscure an underlying neoplasm. False positive reports average 6 to 10%. Patient will receive a letter notifying them of these results.
== END 2024-06-12 02:34 ==
PROVIDERS: PCP Nurse Practitioner Family; Visit Provider Nurse Practitioner Family
DX: Z12.31 Encounter for screening mammogram for malignant neoplasm of breast (principal); R92.323 Mammographic fibroglandular density, bilateral breasts; D24.2 Benign neoplasm of left breast
CPT/HCPCS: 77063; 77067

== ENCOUNTER 2025-03-22 12:35 | Outpatient (REF) | payer MEDICARE, SELFPAY | END 2025-03-22 12:36 | disposition home or self-care (01) | LOC: NCHCN 12:35 | PROVIDERS: PCP Nurse Practitioner Family; Visit Provider Nurse Practitioner Family | DX: E11.22 Type 2 diabetes mellitus with diabetic chronic kidney disease (principal); N18.31 Chronic kidney disease, stage 3a; E11.9 Type 2 diabetes mellitus without complications | CPT/HCPCS: 82043; 82570 ==

== ENCOUNTER → 2025-04-04 01:22 | Outpatient (CLI) | payer MEDICARE, SELFPAY ==
--- NOTE | 2025-04-04 | DI.DEXA_ITS ---
Exam(s) XR DEXA BONE DENSITY W/WO DAMIR EXAM: XR DEXA BONE DENSITY W/WO DAMIR CLINICAL HISTORY: ASYMPTOMATIC MENOPAUSAL STATE Z78.0 POST MENOPAUSAL TECHNIQUE: COMPARISON: No exams were available for comparison FINDINGS: Lateral Spine Image: Unremarkable. No compression deformities identified. Left hip: Total T-Score: -0.8 Total Z-Score: 0.8 T- and Z-scores: Overall the findings are within normal limits. However, there is osteopenia in the femoral neck with a T-score of -1.5. Lumbar Spine: Total T-Score: 0.2 Total Z-Score: 2.4 T- and Z-scores: Within normal limits. IMPRESSION: No evidence of osteoporosis.
== END ==
LOC: DI 01:22
PROVIDERS: PCP Nurse Practitioner Family; Visit Provider Nurse Practitioner Family
DX: Z78.0 Asymptomatic menopausal state (principal)
CPT/HCPCS: 77080